=== PATIENT | male | born 1980 | race Caucasian/White ===

== ENCOUNTER 2021-12-07 16:57 | Outpatient (CLI) | payer OTHER, SELFPAY ==
--- OUTSIDE RECORDS SUMMARY | 2021-12-18 12:07 | XMS_ITS | Encounter Summary ---
:1980 Author Organization [facility] Address [address] [place] [address] Care Team Providers Name Role Phone Md NATHANIEL Boateng Primary Care Provider Reason for Visit Reason Comments Headache Nausea Encounter Details Date Type Department Care Team Description 01/03/2013 Hospital Encounter [facility] Precious Pearson , Acute sinusitis, Care MD unspecified [address] [place] (Primary Dx) [place] [address] [phone] Social History Tobacco Use Types Packs/Day Years Used Date Smoking Tobacco: Never Alcohol Use Standard Drinks/Week Comments Not Asked 0 (1 standard drink = 0.6 oz pure alcoho l) Sex Assigned at Date Recorded Not on file documented as of this encounter Last Filed Vital Signs Vital Sign Reading Time Taken Comments Blood Pressure 115/67 01/03/2013 1:04 PM MEDICAL SURGERY NURSE Pulse 80 01/03/2013 1:04 PM MEDICAL SURGERY NURSE Temperature 36.4 ??C (97.5 ??F) 01/03/2013 1:04 PM MEDICAL SURGERY NURSE Respiratory Rate - - Oxygen Saturation - - Inhaled Oxygen Concentration - - Weight - - Height - - Body Mass Index - - documented in this encounter Medications at Time of Discharge Medication Sig Dispensed Refills Start Date End Date amphetamine-dextroampheta LW 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 120 0 0 08/08/2010 mine (ADDERALL) [...] signed by Precious Pearson MD at 01/17/13 1576 Author: Precious Pearson MD Service: (none) Author Type: Physician Filed: 01/17/13 1541 Note Time: 01/03/13 5064 Status: Signed Wood Milling Machine Operator: Precious Pearson MD (Physician) NAME: LORA STEWART MR#: [id number] CSN: [id number] AUTHENTICATING CLINICIAN: Precious Pearson MD CONFIRM #: [id number] LOC: 520 URGENT CARE PROGRESS NOTE DATE [...] next 3-4 days. EKH:MEDQ C: CONFIRM #: [id number] CAL SURGERY NURSE documented in this encounter Miscellaneous Notes Medication [...] Date:01/03/13, Frequency:2 TIMES DAILY *No Administrations Recorded CAL SURGERY NURSE documented in this encounter Plan of Treatment Not on filedocumented as of this encounter Visit Diagnoses Diagnosis Acute sinusitis, unspecified - Primary Triage Assessment Note - Jeane Pepper LPN - 01/03/2013 1:03 PM MEDICAL SURGERY NURSE Headache x 2 weeks off and on. Feels nauseated. Says it does not feel normal. documented in this encounter Care Teams Phlebotomist Lab Assistant Relationship Specialty Start Date End Date Md Boateng MD PCP - General 10/18/12 [place] [address] documented as of this encounter
--- OUTSIDE RECORDS SUMMARY | 2021-12-18 12:07 | XMS_ITS | Encounter Summary ---
:[address] Address [address] [place] [address] Care Team Providers Name Role Phone Robin Duncan MD Primary Care Provider Reason for Visit Reason Comments PRE-OP EXAM Encounter Details Date Type Department Care Team Description 07/08/2011 Pre-Op Visit [facility] Aniya Esparza Pre-op evaluation (Primary Dx); Medicine Herniated disc; [address] [address] Iglesias. Need for diphtheria-tetanus- pertussis (Tdap) [place] [phone] Social History Tobacco Use Types Packs/Day Years [...] presents with ??? Pre-op Exam neck surgery [facility] Primary care physician: Robin Duncan MD [phone] CHIEF COMPLAINT/HISTORY OF PRESENT ILLNESS Augustus Ramirez Jr. is a 31 y.o. male who presents to the the clinic for pre- operative evaluation before prosthetic disc insertion between C5C6 on 07/[address] Garcia at [facility]. Dx before surgeryis herniated disc which occurred [...] ??? 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 LW Addl Instr:Take 1-2tabs bid Indicated [...] thinners including aspirin unless otherwise specified by unemployment examiner. NPO Guidelines ?? No solid foods after [...] sit e unspecified, without myelopathy Need for kajgajqgxc-ywkndgb-xyeaceklx (T dap) vaccine Need for prophylactic vaccination with c ombined zriwpdlnaa-uqesnak-knpjqovfb (DTP) vaccine documented in this encounter Care Teams Corporate Attorney Relationship Specialty Start Date End Date Robin Duncan MD PCP - General 06/03/10 10/17/[address] [place] [address] documented as of this encounter
--- OUTSIDE RECORDS SUMMARY | 2021-12-18 12:07 | XMS_ITS | Encounter Summary ---
:1980 Author Organization [facility] Address [address] [place] [address] Care Team Providers Name Role Phone Robin Duncan MD Primary Care Provider Reason for Visit Reason Comments Spine Cervical Encounter Details Date Type Department Care Team Description 06/19/2011 Office Visit [facility] Colindres PT Cervicalgia (Primary Therapy [address] [place]) [address] [place] [address] [phone] (Wo rk) Social History Tobacco Use Types Packs/Day Years Used Date Smoking Tobacco: Never Alcohol Use Standard Drinks/Week Comments Not Asked 0 (1 standard drink = 0.6 oz pure alcoho l) Sex Assigned at Date Recorded Not on file documented as of this encounter Progress Notes Maria De Jesus Colindres, MIRELLA - 06/19/2011 12:14 PM CDT [facility] Physical Therapy Progress Note Visit Number: [...] in 2 weeks. in 4 weeks. - transition of care specialist with decreased pain by 50-75% in 2 [...] HEP as tolerated. Procedures: Mechanical Traction (CPT 32297). Manual therapy (CPT 47254) 15 minutes Total treatment time: 40 minutes. Therapist: Maria De Jesus Colindres, PT, 7586 documented in this encounter Plan of Treatment Not on filedocumented as of this encounter Visit Diagnoses Diagnosis Cervicalgia - Primary documented in this encounter Care Teams Security Escort Relationship Specialty Start Date End Date Robin Duncan MD PCP - General 06/03/10 10/17/12 [address] [place] [address] documented as of this encounter
--- OUTSIDE RECORDS SUMMARY | 2021-12-18 12:07 | XMS_ITS | Encounter Summary ---
:1980 Author Organization [employer] Address [address] [facility] [place] [address] Care Team Providers Name Role Phone Md NATHANIEL Boateng Primary Care Provider Reason for Visit Reason Comments Cough Encounter Details Date Type Department Care Team Description 05/15/2016 Hospital Encounter [facility] Marcia Tyler S ore throat (Primary Dx); Becca Hernandez PA-C Exposure to strep throat; [address] Acute suppura tive otitis media of left ear [place] [address] [phone] Social History Tobacco Use Types Packs/Day Years Used Date Smoking Tobacco: Former Cigarettes 1 4 Comments: Smoking History Packs/day: Alcohol Use Standard Drinks/Week Comments Yes 0 (1 standard drink = 0.6 oz pure alcoho l) occasionally Sex Assigned at Date Recorded Not on [...] cannot be sent through Care Everywhere.SORE THROAT (GREEK)OTITIS MEDIA (GREEK)documented in this encounter Medications at Time of Discharge Medication Sig Dispensed Refills Start Date End Date amphetamine-dextroamphetam LW 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 120 0 08/08/2010 ine (ADDERALL) 20 MG [...] history, medications, and allergies were reviewed in [facility] and updated as appropriate. Significant factors are [...] Culture Throat (CSS) (05/15/2016 6:35 PM CDT) [facility] gist Method Time Signature Source Throat PN SOFT Site PN SOFT Strep Screen No Group A PN SOFT Streptococcus Isolated Specimen (Source) Anatomical Collection Method Collection Time Re ceived Time Location / / Volume Laterality 05/15/2016 6:35 PM CDT Narrative PN SOFT - 05/17/2016 5:36 AM CDT Performed at [facility], [address] [place] [address], CLIA Number [id number] Marcia Tyler PA-C LAB_1 Performing Organization Address City/State/ZIP Code Phon e Number PN SOFT [address] [place] [address] [phone] Rapid Strep Group A Waived (RSAW) (05/15/2016 6:29 PM CDT) athologist Signature Strep A Negative Negative PN SOFT Antigen Strep A Source THROA: PN SOFT Specimen Anatomical Collection Method Collection Time Receive d Time (Source) Location / / Volume Laterality 05/15/2016 6:29 PM 7 6:53 CDT PM CDT Narrative PN SOFT - 05/15/2016 6:54 PM CDT Performed at [place] [address] [address] [facility], [place] [address] CLIA number [id number] Osbaldo K Bishop [place] LAB_1 Performing Organization Address City/State/ZIP Code Phon e Number PN SOFT [address] [place] [address] documented in this encounter Visit Diagnoses Diagnosis Sore throat - Primary Acute pharyngitis Exposure to strep throat Contact with or exposure to other commun icable diseases Acute suppurative otitis media of left e ar Triage Assessment Note - Yanique Bender, RN - 05/15/2016 6:14 PM CDT Sore throat starting today, productive cough fatigue/malaise x3 days. Kids had strep/influenza A 1-2weeks ago. documented in this encounter Care Teams Inspector Exhaust Emissions Relationship Specialty Start Date End Date Md Boateng MD PCP - General 10/18/12 [place] [address] documented as of this encounter
--- OUTSIDE RECORDS SUMMARY | 2021-12-18 12:07 | XMS_ITS | Encounter Summary ---
:1980 Author Organization [facility] Address [address] [place] [address] Care Team Providers Name Role Phone Robin Duncan MD Primary Care Provider Reason for Visit Reason Comments Follow-up Encounter Details Date Type Department Care Team Description 12/23/2011 Office Visit Specialty Center 3931 Reddy Luna disc Neurosurgery TANYA Bedoya disease, cervical [facility] [place] [address] Social History Tobacco Use Types Packs/Day Years [...] 12/24/11 1145 Note Time: 12/23/11922 Status: Signed Bridge Contractor: Elke Luna PA-C (Physician Director Of Special Services) NAME: LORA STEWART MR#: [id number] CSN: [id number] AUTHENTICATING CLINICIAN: LILIANA Giordano CONFIRM #: [id number] LOC: 262 CLINIC PROGRESS NOTE DATE OF [...] 9 month old and he is a pkwv-lb-oafi dad at this point in time, taking [...] to call us. IIG:MEDQ C: CONFIRM #: [id number] documented in this encounter Plan of Treatment Not on filedocumented as of this encounter Visit Diagnoses Diagnosis Degenerative disc disease, cervical (HRC ) - Primary Degeneration of cervical intervertebral disc documented in this encounter Care Teams Radio Equipment Installer Relationship Specialty Start Date End Date Robin Duncan MD PCP - General 06/03/10 10/17/12 [address] [place] [address] documented as of this encounter
--- OUTSIDE RECORDS SUMMARY | 2021-12-18 12:07 | XMS_ITS | Encounter Summary ---
:1980 Author Organization [facility] Address [address] [place] [address] Care Team Providers Name Role Phone Md NATHANIEL Boateng Primary Care Provider Encounter Details Date Type Department Care Team Description 05/26/2013 Imaging [facility] 3931 S/P ce rvical spinal fusion Radiology 3931 [facility] [place] [address] Social History Tobacco Use Types Packs/Day Years [...] status documented in this encounter Care Teams Mine Engineering Superintendent Relationship Specialty Start Date End Date Md Kilo, PCP - General 10/18/12 [place] [address] documented as of this encounter
--- OUTSIDE RECORDS SUMMARY | 2021-12-18 12:07 | XMS_ITS | Encounter Summary ---
:1980 Author Organization [facility] Address [address], [place] [address] Care Team Providers Name Role Phone Robin Duncan MD Primary Care Provider Encounter Details Date Type Department Care Team Description 06/22/2012 [facility] 3931 Degene rative disc disease, Radiology cervical 3931 [place], [place] [address] Social History Tobacco Use Types Packs/Day Years [...] disc documented in this encounter Care Teams Technical Operations Manager Relationship Specialty Start Date End Date Robin Duncan MD PCP - General 06/03/10 10/17/[address] [place] [address] documented as of this encounter
--- OUTSIDE RECORDS SUMMARY | 2021-12-18 12:07 | XMS_ITS | Encounter Summary ---
:1980 Author Organization [employer] Address [address] [place] [address] Care Team Providers Name Role Phone Robin Duncan MD Primary Care Provider Encounter Details Date Type Department Care Team Description 07/09/2011 - Hospital Encounter [facility] 6[facility] Floor Vern Garcia 07/10/2011 [address] [place] [address] Social History Tobacco Use Types Packs/Day Years [...] Lerner PA-C Service: (none) Author Type: Physician Consumer Credit Counselor Filed: 07/17/11 0831 Note Time: 07/10/11 1100 Status: Signed Dowel Pin Man: Spring Lerner PA-C (Physician Consumer Credit Counselor) NAME: LORA STEWART MR#: [id number] CSN: [id number] AUTHENTICATING CLINICIAN: Spring Lerner PA-C CONFIRM #: [id number] LOC: 1 HOSPITAL DISCHARGE SUMMARY Corrected Copy 07/15/11 [facility] DATE OF ADMISSION: 07/09/2011 DATE OF DISCHARGE: [...] changes in symptoms. 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 120 0 amine (ADDERALL) 20 MG [...] post-op period. D: Pt arrived to room [address] [place] [address], at 1800 (time). Patient is oriented x [...] 07/16/11 0648 Note Time: 07/10/11816 Status: Signed Dowel Pin Man: JOSEY Cunha (Physician) NAME: LORA STEWART MR#: [id number] CSN: [id number] AUTHENTICATING CLINICIAN: JOSEY Cunha CONFIRM #: [id number] LOC: 1 OPERATIVE REPORT Corrected Copy 07/15/11 [facility] DATE OF OPERATION: 07/09/2011 : 1980 SURGEON: JOSEY Cunha PREOPERATIVE DIAGNOSIS: C5-6 disk herniation with radiculopathy. 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 PROCEDURE PERFORMED: 1. Anterior cervical approach C5-6 diskectomy. 2. C5-6 arthroplasty. SURGEON: JOSEY Cunha BUSINESS MACHINES TEACHER: Spring Lerner PA-C COMPLICATIONS: None. BLOOD LOSS: [...] Monocryl subcuticular stitch. PRB:MEDQ C: CONFIRM #: [id number] documented in this encounter Miscellaneous Notes Medication [...] filedocumented in this encounter Care Teams Director Food Safety Relationship Specialty Start Date End Date Robin Duncan MD PCP - General 06/03/10 10/17/12 [address] [place] [address] [place] [address] documented as of this encounter
--- OUTSIDE RECORDS SUMMARY | 2021-12-18 12:07 | XMS_ITS | Encounter Summary ---
:1980 Author Organization [facility] Address [address] [place] [address] Care Team Providers Name Role Phone Robin Duncan MD Primary Care Provider Reason for Visit Reason Comments Follow-up Encounter Details Date Type Department Care Team Description 08/15/2011 Office Visit Specialty Center Spring Lerner, Reddy rative disc 3931 Neurosurgery PA-C disease, cervical [address] (P rimary Dx) [address] [place] [phone] (Wo rk) Social History Tobacco Use [...] for xrays. Call with further questions/concerns. Samia: [phone] documented in this encounter Progress Notes Samia Barton - 08/15/2011 11:56 AM CDT AVS given. Spring Lerner PA-C - 08/15/2011 11:54 AM CDT Progress Notes signed by Spring Lerner PA-C at 08/22/11 1429 Also signed by JOSEY Cunha at 08/26/11 0801 Author: Spring Lerner PA-C Service: (none) Author Type: Physician Coffee Roaster Filed: 08/22/11 1427 Note Time: 08/15/11 1154 Status: Signed Jewelry Casting Model Maker: Spring Lerner PA-C (Physician Coffee Roaster) NAME: LORA STEWART MR#: [id number] CSN: [id number] AUTHENTICATING CLINICIAN: Spring Lerner PA-C CONFIRM #: [id number] LOC: 262 CLINIC PROGRESS NOTE DATE OF [...] in good condition. ALL:MEDQ C: CONFIRM #: [id number] documented in this encounter Plan of Treatment [...] disc documented in this encounter Care Teams Entry Level Programmer Relationship Specialty Start Date End Date Robin Duncan MD PCP - General 06/03/10 10/17/12 [address] [place] [address] [id number] documented as of this encounter
--- OUTSIDE RECORDS SUMMARY | 2021-12-18 12:07 | XMS_ITS | Encounter Summary ---
:1980 Author Organization [facility] Address [address] [place] [address] Care Team Providers Name Role Phone Robin Duncan MD Primary Care Provider Reason for Referral Specialty Diagnoses / Procedures Referred By Contact Refer red To Contact Vern Garcia MD Referral ID Status Reason Start Date Expiration Date Visits Requ ested Visits Authorized Reason for Visit Reason Comments Spine Cervical Encounter Details Date Type Department Care Team Description 06/26/2011 Office Visit [place] [facility] Citlaly Colindres PT Herniated cervical disc; Therapy [address] [address] Radiculopathy, cervical; [address] [place], [place] [address] [phone] (Wo rk) Social History Tobacco Use Types [...] Augustus Ramirez Service Date: 07/23/2011 MR# : [id number] Dictating Clinician: Maria De Jesus Colindres : [...] Provided: Partial Maria De Jesus Colindres PT #[id number] Maria De Jesus Colindres, PT - 06/26/2011 12:09 PM CDT [facility] Physical Therapy Progress Note Visit Number: [...] in 2 weeks. in 4 weeks. - pharmacist critical care with decreased pain by 50-75% in 2 weeks - 4 weeks. in 4 weeks. -Able to turn neck functional range (65 degrees) for safe driving in 2 weeks. to 4 weeks. -Return to work with restrictions (i.e. To Be Determined by MD)or as MD permits in 1-2 weeks. PLAN Will hold chart x2 weeks pending MD recheck next week. Procedures: Mechanical Traction (CPT 98213). Manual therapy (CPT 75787) 15 minutes Total treatment time: 30 minutes. Therapist: Maria De Jesus Colindres, PT, 0660 documented in this encounter Plan of Treatment Scheduled Referrals Name Type Priority Associated Diagnoses Order S [facility] Physical Therapy Referral Routine Herniated cervi jesika disc Ordered: 06/26/2011 Radiculopathy, cervical documented as of this encounter Visit Diagnoses Diagnosis Herniated cervical disc (HRC) Displacement of cervical intervertebral disc without myelopathy Radiculopathy, cervical Brachial neuritis or radiculitis nos Cervicalgia documented in this encounter Care Teams Food Service Technician Relationship Specialty Start Date End Date Robin Duncan MD PCP - General 06/03/10 10/17/12 [address] [place] [address] [place] [address] documented as of this encounter
--- OUTSIDE RECORDS SUMMARY | 2021-12-18 12:07 | XMS_ITS | Encounter Summary ---
:1980 Author Organization [facility] Address [address] [address] Care Team Providers Name Role Phone Md NATHANIEL Boateng Primary Care Provider Reason for Visit Reason Comments Follow-up Encounter Details Date Type Department Care Team Description 05/26/2013 Office Visit Specialty Center 3931 Vern Garcia ervicalgia (Primary Neurosurgery MD Ed Dx) 3931 [place] [address] Social History Tobacco Use Types Packs/Day Years [...] 1218 Note Time: 05/27/13 1155 Status: Signed Improvement Intern: JOSEY Cunha (Physician) NAME: LORA STEWART MR#: [id number] CSN: [id number] AUTHENTICATING CLINICIAN: JOSEY Cunha CONFIRM #: [id number] LOC: 223 CLINIC PROGRESS NOTE DATE OF [...] with stable alignment. PRB:MEDQ C: CONFIRM #: [id number] documented in this encounter Plan of Treatment Not on filedocumented as of this encounter Visit Diagnoses Diagnosis Cervicalgia - Primary documented in this encounter Care Teams Copper Etcher Relationship Specialty Start Date End Date Md Boateng MD PCP - General 10/18/12 [place] [address] documented as of this encounter
--- OUTSIDE RECORDS SUMMARY | 2021-12-18 12:07 | XMS_ITS | Encounter Summary ---
:1980 Author Organization [employer] Address [address] [place] [address] Care Team Providers Name Role Phone Md NATHANIEL Boateng Primary Care Provider Reason for Visit Reason Comments Neck Pain Encounter Details Date Type Department Care Team Description 10/19/2012 Office Visit [facility] Nnamdi Vicente MD Cervicalgia (Primary Medicine [address] [facility] Dx) [address] [place] [address] [phone] (Wo rk) Social History Tobacco Use Types [...] AM CDT Please call Physical Therapy at [phone] to schedule your appointment. documented in this encounter Progress Notes Nnamdi Vicente MD - 10/19/2012 12:15 PM CDT Progress Notes signed by Nnamdi Vicente MD at 10/19/12 1616 Author: Nnamdi Vicente MD Service: (none) Author Type: Physician Filed: 10/19/12 1616 Note Time: 10/19/12 1530 Status: Signed Racing Car Driver: Nnamdi Vicente MD (Physician) NAME: LORA STEWART MR#: [id number] CSN: [id number] AUTHENTICATING CLINICIAN: Nnamdi Vicente MD CONFIRM #: [id number] LOC: 502 CLINIC PROGRESS NOTE DATE OF [...] or worsening symptoms. CJM:MEDTrae C: CONFIRM #: [id number] documented in this encounter Plan of Treatment Not on filedocumented as of this encounter Visit Diagnoses Diagnosis Cervicalgia - Primary documented in this encounter Care Teams Change Booth Attendant Relationship Specialty Start Date End Date Md Boateng MD PCP - General 10/18/12 [place] [address] documented as of this encounter
--- OUTSIDE RECORDS SUMMARY | 2021-12-18 12:07 | XMS_ITS | Encounter Summary ---
:1980 Author Organization [facility] Address [address] [place] [address] Care Team Providers Name Role Phone Robin Duncan MD Primary Care Provider Reason for Visit Reason Comments Follow-up Encounter Details Date Type Department Care Team Description 06/22/2012 Office Visit Specialty Center 3931 Vern Garcia egenerative disc Neurosurgery RMD disease, cervical 3931 [facility] (Primary Dx) [place] [address] Social History Tobacco Use Types Packs/Day Years Used Date Smoking Tobacco: Never Alcohol Use Standard Drinks/Week Comments Not Asked 0 (1 standard drink = 0.6 oz pure alcoho l) Sex Assigned at Date Recorded Not on file documented as of this encounter Last Filed Vital Signs Vital Sign Reading Time Taken Comments Blood Pressure 110/66 06/22/2012 11:31 AM CDT Pulse 72 06/22/2012 11:31 AM CDT Temperature - - Respiratory Rate 20 06/22/2012 11:31 AM CDT Oxygen Saturation - - Inhaled Oxygen Concentration - - Weight - - Height - - Body Mass Index - - documented in this encounter Progress Notes Vern Garcia MD - 06/22/2012 11:48 AM CDT this note has been dictated. Vern Garcia MD - 06/22/2012 11:48 AM CDT Progress Notes signed by JOSEY Cunha at 06/22/122349 Author: JOSEY Cunha Service: (none) Author Type: Physician Filed: 06/22/122349 Note Time: 06/22/122104 Status: Signed English As A Second Language Teacher: JOSEY Cunha (Physician) NAME: LORA STEWART MR#: [id number] CSN: [id number] AUTHENTICATING CLINICIAN: JOSEY Cunha CONFIRM #: [id number] LOC: 223 CLINIC PROGRESS NOTE DATE OF VISIT: 06/22/2012 : 1980 Mr. Stewart is a very pleasant 32-year-old gentleman who I had done L1 level cervical arthroplasty. He has done well from a surgery standpoint, is almost a year out from surgery. Overall he is happy with the outcome of surgery. No signs of myelopathy or radiculopathy at this current point. His incision has healed well with primary intention. His scan looks good. His x- rays show that things look stable and I have a explained to the patient at this current point. I will like to see him onelast time in a year with another set of x-rays. PRB:MEDQ C: CONFIRM #: [id number] documented in this encounter Plan of Treatment Not on filedocumented as of this encounter Visit Diagnoses Diagnosis Degenerative disc disease, cervical (HRC ) - Primary Degeneration of cervical intervertebral disc documented in this encounter Care Teams Parking Enforcement Technician Relationship Specialty Start Date End Date Robin Duncan MD PCP - General 06/03/10 10/17/12 [address] [place] [address] [address] documented as of this encounter
--- OUTSIDE RECORDS SUMMARY | 2021-12-18 12:07 | XMS_ITS | Encounter Summary ---
:1980 Author Organization [facility] Address [address], [place] [address] Care Team Providers Name Role Phone Robin Duncan MD Primary Care Provider Encounter Details Date Type Department Care Team Description 09/25/2011 Imaging [facility]ty Center 393 1 Radiology 3931 [place] [address] Social History Tobacco Use Types Packs/Day Years Used Date Smoking Tobacco: Never Alcohol Use Standard Drinks/Week Comments Not Asked 0 (1 standard drink = 0.6 oz pure alcoho l) Sex Assigned at Date Recorded Not on file documented as of this encounter Plan of Treatment Not on filedocumented as of this encounter Visit Diagnoses Not on filedocumented in this encounter Care Teams Calendar Control Clerk Blood Bank Relationship Specialty Start Date End Date Robin Duncan MD PCP - General 06/03/10 10/17/12 [address] [place] [address] [place] [address] documented as of this encounter
--- OUTSIDE RECORDS SUMMARY | 2021-12-18 12:07 | XMS_ITS | Encounter Summary ---
:1980 Author Organization [facility] Address [address] [place] [address] Care Team Providers Name Role Phone Robin Duncan MD Primary Care Provider Reason for Visit Reason Comments Rash Encounter Details Date Type Department Care Team Description 07/07/2012 Initial Consult Herminia Bustillos is lyle Raines MD (Primary Dx) [address] [place] [address] [place], [place] [phone] [address] Social History Tobacco Use Types Packs/Day Years Used Date Smoking Tobacco: Never Alcohol Use Standard Drinks/Week Comments Not Asked 0 (1 standard drink = 0.6 oz pure alcoho l) Sex Assigned at Date Recorded Not on file documented as of this encounter Patient Instructions Patient InstructionsGladys Acevedo MA - 07/07/2012 11:58 AM CDT DIRECT PHONE NUMBER: GLADYS [phone]. FEEL FREE TO CALL WITH ANY QUESTIONS OR CONCERNS YOU MAY HAVE. documented in this encounter Progress Notes Herminia Navsa MD - 07/07/2012 12:11 PM CDT Progress Notes signed by Herminia Acevedo MD at 07/08/12 0724 Author: Herminia Acevedo MD Service: (none) Author Type: Physician Filed: 07/08/12 0724 Note Time: 07/07/12 1558 Status: Signed Botany Teacher: Herminia Acevedo MD (Physician) NAME: LORA STEWART MR#: [id number] CSN: [id number] AUTHENTICATING CLINICIAN: Herminia Navas MD CONFIRM #: [id number] LOC: 527 CLINIC PROGRESS NOTE DATE OF [...] go from there. VLV:ANGELA C: CONFIRM #: [id number] documented in this encounter Plan of Treatment Not on filedocumented as of this encounter Visit Diagnoses Diagnosis Pityriasis rosea - Primary documented in this encounter Care Teams Program Manufacturing Leader Relationship Specialty Start Date End Date Robin Duncan MD PCP - General 06/03/10 10/17/12 [address] [place] [address] [place] [address] documented as of this encounter
--- OUTSIDE RECORDS SUMMARY | 2021-12-18 12:07 | XMS_ITS | Encounter Summary ---
:1980 Author Organization [email or web address] Address [address] [place] [address] Care Team Providers Name Role Phone Md NATHANIEL Boateng Primary Care Provider Reason for Visit Reason Comments Ear Pain Encounter Details Date Type Department Care Team Description 03/30/2013 Hospital Encounter [facility] SARA DuranTI (acute upper respiratory infection) (Primary Dx); Care Hubert Mcclure MD Otitis media, right [address] [phone] [address] Social History Tobacco Use Types Packs/Day Years Used Date Smoking Tobacco: Never Alcohol Use Standard Drinks/Week Comments Not Asked 0 (1 standard drink = 0.6 oz pure alcoho l) Sex Assigned at Date Recorded Not on file documented as of this encounter Last Filed Vital Signs Vital Sign Reading Time Taken Comments Blood Pressure 114/68 03/30/2013 6:05 PM PREVENTION RN Pulse 77 03/30/2013 6:05 PM PREVENTION RN Temperature 36.9 ??C (98.4 ??F) 03/30/2013 6:05 PM PREVENTION RN Respiratory Rate 14 03/30/2013 6:05 PM PREVENTION RN Oxygen Saturation 97% 03/30/2013 6:05 PM PREVENTION RN Inhaled Oxygen Concentration - - Weight - [...] 04/02/13 0756 Note Time: 03/30/132129 Status: Signed Assistant Art Director: Hubert Duran MD (Physician) NAME: LORA STEWART MR#: [id number] CSN: [id number] AUTHENTICATING CLINICIAN: Hubert Duran MD CONFIRM #: [id number] LOC: 520 URGENT CARE PROGRESS NOTE DATE [...] or concerns, reassess. JBF:MEDQ C: CONFIRM #: [id number] ENTION RN documented in this encounter Miscellaneous Notes Medication History - Shorty Abbott MD - 03/30/2013 6:15 PM CST INPATIENT MEDS Encounter Date: 03/30/13 amoxicillin (AMOXIL) 500 mg capsule Start Date:03/30/13, End Date:04/06/13, Frequency:3 TIMES DAILY *No Administrations Recorded D-METHORPHAN/PE/ACETAMINOPHEN (VICKS DAYQUIL ORAL) Start Date:-, End Date:-, Frequency:- *No Administrations Recorded ENTION RN documented in this encounter Plan of Treatment [...] days. documented in this encounter Care Teams User Experience Researcher Relationship Specialty Start Date End Date Md Boateng MD PCP - General 10/18/12 [place] [address] documented as of this encounter
--- OUTSIDE RECORDS SUMMARY | 2021-12-18 12:07 | XMS_ITS | Clinical Summary ---
:1980 Author Organization [facility] Address [address] [place] [address] Care Team Providers Name Role Phone Md [...] for each transition of care or referral. [facility] Allergies No known active allergies Medications Medication [...] not taking. 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 120 0 08/08/2010 Active (ADDERALL) 20 MG [...] in thoracic spine 07/17/2005 Overview: LW Onset: [id number] ; Pain Back Thoracic Cervicalgia 07/17/2005 Overview: LW Onset: [id number] ; Pain Neck Backache 02/12/2004 Overview: Epic Depressive disorder 02/12/2004 Overview: Depressive disorder, not elsewhere class ified ([facility]) Immunizations Name Administration Dates Next Due [...] Effective Phone Address Type Plan / Dates [facility] 2003-Pre [phone] Workers Comp [facility] sent [phone] [place] [address] [facility] [id number] 2017-Pre [phone] Commercial sent [phone] [place] [address] Augustus Ramirez Personal/Famil Self 1980 [address] (Home) [place] [id number] Augustus Ramirez Personal/Famil Self [address] y (Home) [place] [address] Augustus Ramirez Workers Comp Self 1980 [address] (Home) [place] [address] Advance Directives Latest Code Status on File Code Status Date Activated Date Inactivated Comments 05/20/2003 10:20 AM 05/20/2003 11:20 AM Care Teams Cargo Station Worker Relationship Specialty Start Date End Date Md Kilo, PCP - General 10/18/12 [place] [address]
--- OUTSIDE RECORDS SUMMARY | 2021-12-18 12:07 | XMS_ITS | Encounter Summary ---
:1980 Author Organization [facility] Address [address] [facility] [place] [address] Care Team Providers Name Role Phone Robin Duncan MD Primary Care Provider Reason for Visit Reason Comments Cough Encounter Details Date Type Department Care Team Description 10/16/2011 Hospital Encounter [facility] Shannan Velez, [place] [facility]; Care PA-C [facility]roat sore[facility] [address] [facility] [address] [place] [address] [address] [phone] [place] [address] Social History Tobacco Use Types [...] Refills Start Date End Date amphetamine-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 LW 120 0 08/08/2010 tamine (ADDERALL) 20 [...] Beta Strep Followup (10/16/2011 11:36 AM CDT) [facility] Method Time Signature Strep Screen No [...] Component Value Ref Test Analysis Performed At [facility] Range Method Time Signature Rapid Strep [...] - 10/16/2011 11:45 AM CDT Performed at [facility], [address] [place] [address] Shannan Velez PA-C LAB_1 Performing Organization Address City/State/ZIP Code Phon e Number HP CONVERSION documented in this encounter Visit Diagnoses Diagnosis Cough Throat soreness Acute pharyngitis Triage Assessment Note - Lorri Christianson RN - 10/16/2011 8:48 AM CDT Started yesterday and today sore throat and fatigue. documented in this encounter Care Teams Banquet Director Relationship Specialty Start Date End Date Robin Duncan MD PCP - General 06/03/10 10/17/[address] [place] [address] documented as of this encounter
--- OUTSIDE RECORDS SUMMARY | 2021-12-18 12:07 | XMS_ITS | Encounter Summary ---
:[address] [facility] Address [address] [place] [address] Care Team Providers Name Role Phone Robin Duncan MD Primary Care Provider Encounter Details Date Type Department Care Team Description 06/22/2012 Notes/Orders Specialty Center 3931 Dennise Velez Deg enerative disc Neurosurgery disease, cervical [address] [place] [address] [address] (Primary Dx) [place] [address] Social History Tobacco Use Types Packs/Day Years [...] disc documented in this encounter Care Teams Waterproofing Mixer Relationship Specialty Start Date End Date Robin Duncan MD PCP - General 06/03/10 10/17/12 [address] [place] [place] [address] documented as of this encounter
--- OUTSIDE RECORDS SUMMARY | 2021-12-18 12:07 | XMS_ITS | Encounter Summary ---
:1980 Author Organization [facility] Address [address] [place] [address] Care Team Providers Name Role Phone Robin Duncan MD Primary Care Provider Reason for Visit Reason Comments Wound Check Encounter Details Date Type Department Care Team Description 07/23/2011 Office Visit Specialty Center 3931 Nurse, P3931 Nsu Ce rvicalgia (Primary Neurosurgery Dx) 3931 [place] [address] Social History Tobacco Use Types Packs/Day Years [...] Primary documented in this encounter Care Teams Dinkey Driver Relationship Specialty Start Date End Date Robin Duncan MD PCP - General 06/03/10 10/17/12 [address] [address] [place] [address] documented as of this encounter
--- OUTSIDE RECORDS SUMMARY | 2021-12-18 12:07 | XMS_ITS | Encounter Summary ---
:1980 Author Organization [facility] Address [address] [place] [address] Care Team Providers Name Role Phone Robin Duncan MD Primary Care Provider Reason for Visit Reason Comments Rash Encounter Details Date Type Department Care Team Description 07/06/2012 Office Visit [facility] Ibis Plata Rash (Primary Dx) Medicine [address] [facility] [address] [place] [address] [place] [address] [phone] (Wo rk) Social History Tobacco Use Types [...] signed by Ibis Plata MD at 07/11/12 2370 Author: Ibis Plata MD Service: (none) Author Type: Physician Filed: 07/11/12 1855 Note Time: 07/07/12 0128 Status: Signed Brush Filler Hand: Ibis Plata MD (Physician) NAME: LORA STEWART MR#: [id number] CSN: [id number] AUTHENTICATING CLINICIAN: Ibis Plata MD CONFIRM #: [id number] LOC: 502 CLINIC PROGRESS NOTE DATE OF [...] and recommend to be seen by the director of special events for further evaluation. SS:MEDQ C: CONFIRM #: [id number] documented in this encounter Plan of Treatment Not on filedocumented as of this encounter Procedures Procedure Name Priority Date/Time Associated Diagnosis Comme nts MIA PREP Routine 07/06/2012 10:52 AM Rash Results for this CDT procedure are i n the results section . documented in this encounter Results MIA Prep (07/06/2012 10:52 AM CDT) [facility] Method Time Signature MIA Yeast None Seen HP CONVERSION MIA Fungus None Seen HP CONVERSION MIA Pseudo None Seen HP CONVERSION Hypae MIA Source Skin HP CONVERSION Scraping ( Specimen Anatomical Collection Method Collection Time Receive d Time (Source) Location / / Volume Laterality 07/06/2012 10:52 07/06/2012 AM CDT 10:55 AM CDT Narrative HP CONVERSION - 07/06/2012 11:18 AM CDT Performed at [facility], [address] [place] [address] Ibis Plata MD LAB_1 Performing Organization Address City/State/ZIP Code Phon e Number HP CONVERSION documented in this encounter Visit Diagnoses Diagnosis Rash - Primary Rash and other nonspecific skin eruption documented in this encounter Care Teams Room Cleaner Relationship Specialty Start Date End Date Robin Duncan MD PCP - General 06/03/10 10/17/[id number] [place] [address] [place] [address] documented as of this encounter
--- OUTSIDE RECORDS SUMMARY | 2021-12-18 12:07 | XMS_ITS | Encounter Summary ---
:1980 Author Organization [facility] Address [address] [place] [address] Care Team Providers Name Role Phone Robin Duncan MD Primary Care Provider Encounter Details Date Type Department Care Team Description 07/09/2011 Notes/Orders Religious Radiology Vern Garcia MD [address] [place] [facility] [place] [address] Social History Tobacco Use Types [...] 10:28 AM CDT NAME: LORA STEWART MR#: [id number] ?? CSN: [id number] ?? AUTHENTICATING CLINICIAN: JOSEY Henriquez ?? CONFIRM #: [id number] ?? LOC: 1 ?? OPERATIVE REPORT ?? Corrected Copy 07/15/11 dmf/DOS ?? DATE OF OPERATION: 07/09/2011 ?? : 1980 ?? SURGEON: JOSEY Cunha ?? PREOPERATIVE DIAGNOSIS: ?? 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 ?? POSTOPERATIVE DIAGNOSIS: ?? 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 ?? PROCEDURE PERFORMED: ?? 1. Anterior cervical approach C5-6 diske ctomy. ?? 2. C5-6 arthroplasty. ?? SURGEON: ?? JOSEY Cunha ?? COMIC BOOK WRITER: ?? Spring Lerner PA-C ?? COMPLICATIONS: ?? [...] stitch. ?? PRB:MEDQ C: ?? CONFI #: [id number] Procedure Note Vern Garcia - 08/17/2015Formatti ng of this note might be different from the original. 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 PROCEDURE PERFORMED: 1. Anterior cervical approach C5-6 diske ctomy. 2. C5-6 arthroplasty. SURGEON: JOSEY Cunha COMIC BOOK WRITER: Spring Lerner PA-C COMPLICATIONS: None. BLOOD LOSS: [...] Monocryl subcuticular stitch. PRB:MEDQ C: CONFI #: [id number] Vern Garcia MD RAD [place] documented in this encounter Visit Diagnoses Not on filedocumented in this encounter Care Teams Twister In Relationship Specialty Start Date End Date Robin Duncan MD PCP - General 06/03/10 10/17/12 [address] [place] [place] [address] documented as of this encounter
--- OUTSIDE RECORDS SUMMARY | 2021-12-18 12:07 | XMS_ITS | Encounter Summary ---
:1980 Author Organization [employer] Address [address] [address] Care Team Providers Name Role Phone Robin Duncan MD Primary Care Provider Reason for Visit Reason Comments Follow-up Encounter Details Date Type Department Care Team Description 09/25/2011 Office Visit Specialty [facility] Mary Ann Luna; Neurosurgery TANYA Bedoya Degenerative disc disease, c ervical [address]31 [place] [address] Social History Tobacco Use Types Packs/Day Years [...] 09/25/11 1441 Note Time: 09/25/11950 Status: Signed Solder Sprayer: Elke Ritchie PA-C (Physician Nnp) NAME: LORA STEWART MR#: [id number] CSN: [id number] AUTHENTICATING CLINICIAN: LILIANA Harkins CONFIRM #: [id number] LOC: 262 CLINIC PROGRESS NOTE DATE OF [...] for Dr. Garcia. IIT:ANGELA C: CONFIRM #: [id number] documented in this encounter Plan of Treatment Not on filedocumented as of this encounter Visit Diagnoses Diagnosis Cervicalgia Degenerative disc disease, cervical ([facility] ) Degeneration of cervical intervertebral disc documented in this encounter Care Teams Ortho Tech Relationship Specialty Start Date End Date Robin Duncan MD PCP - General 06/03/10 10/17/12 [address] [place] [address] [place] [address] documented as of this encounter
--- OUTSIDE RECORDS SUMMARY | 2021-12-18 12:07 | XMS_ITS | Encounter Summary ---
:1980 Author Organization [employer] Address [address], [place] [address] Care Team Providers Name Role Phone Md NATHANIEL Boateng Primary Care Provider Reason for Visit Reason Comments Other Encounter Details Date Type Department Care Team Description 01/29/2015 Telephone Specialty Center 3931 [facility] Emeli Miranda, RN [address] [place], [place] [phone] Social History Tobacco Use Types Packs/Day Years [...] is asking for evaluation. Recommended PCP appointment. ALT TILE FLOOR LAYER documented in this encounter Plan of Treatment Not on filedocumented as of this encounter Visit Diagnoses Not on filedocumented in this encounter Care Teams Mill Work Relationship Specialty Start Date End Date Md Boateng MD PCP - General 10/18/12 [place], [place] [id number] documented as of this encounter
--- OUTSIDE RECORDS SUMMARY | 2021-12-18 12:07 | XMS_ITS | Encounter Summary ---
:1980 Author Organization [facility] Address [address] [place] [address] Care Team Providers Name Role Phone Robin Duncan MD Primary Care Provider Reason for Visit Reason Comments Provider Orders Encounter Details Date Type Department Care Team Description 12/22/2011 Notes/Orders Specialty Center 3931 Nissa Peterson istory of fusion of Neurosurgery P, FLOOR SERVICE WORKER SPRING cervical spine [address] [facility] (Primary Dx) [place] [address] Social History Tobacco Use Types Packs/Day Years [...] status documented in this encounter Care Teams Latex Caster Relationship Specialty Start Date End Date Robin Dunacn MD PCP - General 06/03/10 10/17/12 [address] [place] [address] [place] [id number] documented as of this encounter
--- OUTSIDE RECORDS SUMMARY | 2021-12-18 12:07 | XMS_ITS | Encounter Summary ---
:1980 Author Organization [email or web address] Address [address], [place] [address] Care Team Providers Name Role Phone Md NATHANIEL Boateng Primary Care Provider Encounter Details Date Type Department Care Team Description 05/25/2013 Notes/Orders Specialty Center 3931 Joann Rebolledo RN S/ P cervical spinal Neurosurgery fusion (Primary Dx) 3931 [place], [place] [address] Social History Tobacco Use Types Packs/Day Years [...] status documented in this encounter Care Teams Compressed Gas Equipment Mechanic Relationship Specialty Start Date End Date Md Boateng MD PCP - General 10/18/12 [place] [address] documented as of this encounter
--- OUTSIDE RECORDS SUMMARY | 2021-12-18 12:07 | XMS_ITS | Encounter Summary ---
:1980 Author Organization [facility] Address [address] [facility] [place] [address] Care Team Providers Name Role Phone Md NATHANIEL Boateng Primary Care Provider Reason for Visit Reason Comments NASAL CONGESTION--ED Pharyngitis Encounter Details Date Type Department Care Team Description 11/21/2018 Hospital Encounter [facility] Princess Parra, So re throat; Care TANYA Allergic rhinitis, unspecified seasonali ty, unspecified trigger; [address] [address] Acute sinusitis, recurrence not specifie d, [place] [address] [phone] Social History Tobacco Use Types Packs/Day Years [...] weeds. Allergies can be mild or severe. Rxqf-exh-qvgoenk allergy medicine may help with some symptoms. [...] or twice a week. Use a vacuum vacuum cleaner assembler with aHEPA filter or a double-thickness filter. [...] can you learn more? 1. Go to https://ViralGains/[employer] Energy IncraFindline or OneBuckResume/WyzeTalkrary. 2. Enter J912 in the search box. Current as of: August 26, 2017 Content Version: 12.0 ?? 1521-0268 [employer]. Care instructions adapted under license by your healthcare professional. If you have questions about a medical condition or this instruction, always ask your healthcare professional. [employer] disclaims any warranty or liability for your [...] for yourself at home? ?? Take an xncn-wsg-miycpaf pain medicine, such as acetaminophen (Tylenol), ibuprofen (Advil, Motrin), or naproxen (Aleve). Read and follow all instructions on the label. ?? If the doctor prescribed antibiotics, take them as directed. Do not stop taking them just becauseyou feel better. You need to take the full course of antibiotics. ?? Be careful when taking kaev-wqp-gmxbndx cold or flu medicines and Tylenol at [...] can you learn more? 1. Go to https://ViralGains/healthlibrary or OneBuckResume/WyzeTalkraFindline. 2. Enter I933 in the search box. Current as of: December 20, 2017 Content Version: 12.0 ?? 8266-9640 Tapdaq. Care instructions adapted under license by your healthcare professional. If you have questions about a medical condition or this instruction, always ask your healthcare professional. [employer] disclaims any warranty or liability for your use of this information. documented in this encounter Medications at Time of Discharge Medication Sig Dispensed Refills Start Date End Date ALBUterol sulfate HFA 108 Inhale 1-2 Puffs 1 Inhaler 0 11/01 (90 Base) MCG/ACT inhaler every 4 hours as needed for Shortness of Breath. amphetamine-dextroamphetam LW Comment:occupational therapist aide. 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 Adverse Drug Reactions: No Known Allergies. Medications: [...] ??? amphetamine-dextroamphetamine (ADDERALL) 20 MG tablet LW Comment:occupational therapist aide. LW Addl Instr:Take 1-2tabs bid Indicated for: [...] 20 MG tablet Generic drug: amphetamine-dextroamphetamine LW Comment:occupational therapist aide. LW Addl Instr:Take 1-2 tabs bid Indicated [...] Your Medications These medications were sent to [id number] - [place], [place] - [address] [facility] [address] [address] [facility] [id number] ?? ALBUterol sulfate HFA 108 (90 Base) [...] Signature Group A Rapid Negative Negative 11/21/2018 [facility] Screen 12:03 PM CDT LABORATORY Specimen Anatomical Collection Method Collection Time Receive d Time (Source) Location / / Volume Laterality Swab (Source THROAT SWAB / Non-blood 11/21/2018 11:34 11/21/2018 Required) Unknown Collection / AM CDT 11:46 AM CDT Unknown Narrative [facility] - 11/21/2018 12:03 PM CDT Order a Group A Strep Respiratory cultur e if the patient is OVER 18 and has had CLOSE contact with strep, hx of rheumatic feve r or post-strep glomerulonephritis, or is immunocompromised. [facility]_1 Performing Organization Address City/State/ZIP Code Phon e Number [facility] [address] [place] [address] documented in this encounter Visit Diagnoses Diagnosis Sore throat Acute pharyngitis Allergic rhinitis, unspecified seasonali ty, unspecified trigger Acute sinusitis, recurrence not specifie d, unspecified location Triage Assessment Note - Nicole Nicholas RN - 11/21/2018 11:32 AM CDT Pt here for nasal congestion and sore throat X 1.5 days. documented in this encounter Care Teams Geomorphology Teacher Relationship Specialty Start Date End Date Md Boateng MD PCP - General 10/18/12 [place] [address] documented as of this encounter
--- OUTSIDE RECORDS SUMMARY | 2021-12-18 12:07 | XMS_ITS | Encounter Summary ---
:1980 Author Organization [facility] Address [address] [place] [address] Care Team Providers Name Role Phone Md NATHANIEL Boateng Primary Care Provider Reason for Visit Reason Comments Cough CONGESTION, NASAL Encounter Details Date Type Department Care Team Description 10/17/2013 Hospital Encounter [facility] re Princess Parra, PAKattC Cough; [address] [place] [address] [place] [address] [phone] Social History Tobacco Use Types Packs/Day Years [...] Refills Start Date End Date amphetamine-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 120 0 08/08/2010 ine (ADDERALL) 20 [...] Parra PA-C Service: (none) Author Type: Physician Quotation Checker Filed: 10/24/13 1321 Note Time: 10/18/139 Status: Signed Director Of Medical Review: Princess Parra PA-C (Physician Quotation Checker) NAME: LORA STEWART MR#: [id number] CSN: [id number] AUTHENTICATING CLINICIAN: Princess Parra PA-C CONFIRM #: [id number] LOC: 520 URGENT CARE PROGRESS NOTE DATE [...] travel. PAST MEDICAL HISTORY: Reviewed online in [employer]. MEDICINES: Reviewed online in [employer]. EXAM: Patient is a little bit ill [...] otherwise recheck p.r.n. TATIANNAT:ANGELA C: CONFIRM #: [id number] documented in this encounter Miscellaneous Notes Miscellaneous [...] weeks for repeat xray to confirm resolution-Erin MAKER HELPER Medication History - Shorty Abbott MD - [...] from the original note were not included. [facility] [address] [place] [address] Dept: [phone] [email or web address] Lora Stewart Jr. 10/17/2013 7:29 PM Hospital Encounter Description: Male : 1980 Department: [place] [facility] Thank you for choosing [facility] for your health care visit with Princess Parra PA-C. We are happy to care for you and provide this summary of your visit. Your primary regular senior care provider is currently listed as Md Kilo MD. HERE IS WHAT YOU NEED TO KNOW To learn how you can take steps to stay as healthy as you can be visit [email or web address] HERE IS WHAT YOU NEED TO DO Call your clinic if you develop new or worsening symptoms or if you have questions about your visit or medications. Your to do list Future Orders Complete By Ordering Dept. 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 LW Addl Instr:Take 1-2 tabs bid [...] Ethnicity Preferred Language 1980 Male White Non- Kazakh This document contains confidential information about your [...] 1800 documented in this encounter Care Teams Test Fixture Assembler Relationship Specialty Start Date End Date Md Boateng MD PCP - General 10/18/12 [place] [address] documented as of this encounter
--- OUTSIDE RECORDS SUMMARY | 2021-12-18 12:08 | XMS_ITS | Encounter Summary ---
:1980 Author Organization [facility] Address [address] [place] [address] Care Team Providers Name Role Phone Robin Duncan MD Primary Care Provider Encounter Details Date Type Department Care Team Description 11/13/2009 PN Conversion Only UTILITY SYSTEM OPERATOR 38[address] CONV [address] [address] Social History Tobacco Use Types Packs/Day Years Used Date Smoking Tobacco: Never Alcohol Use Standard Drinks/Week Comments Not Asked 0 (1 standard drink = 0.6 oz pure alcoho l) Sex Assigned at Date Recorded Not on file documented as of this encounter Plan of Treatment Not on filedocumented as of this encounter Visit Diagnoses Not on filedocumented in this encounter Care Teams Ore Mixer Relationship Specialty Start Date End Date Robin Duncan MD PCP - General 06/03/10 10/17/12 [address] [address] [place] [address] documented as of this encounter
--- OUTSIDE RECORDS SUMMARY | 2021-12-18 12:08 | XMS_ITS | Encounter Summary ---
:1980 Author Organization [employer] Address [address] [place] [address] Care Team Providers Name Role Phone Robin Duncan MD Primary Care Provider Reason for Referral Specialty Diagnoses / Procedures Referred By Contact Refer red To Contact Belkis Mendez MD Referral ID Status Reason Start Date Expiration Date Visits Requ ested Visits Authorized Reason for Visit Reason Comments Spine Cervical Encounter Details Date Type Department Care Team Description 06/09/2011 Initial Consult [place] [facility] Maria De Jesus Colindres N sun pain, acute Therapy PT (Primary Dx) [address] [place] [address] [place], [place] [phone] [address] Social History Tobacco Use Types Packs/Day [...] Is suppose to be going [place] to [place] for a job this week. OBJECTIVE: General: [...] -Manual Therapy, 1 or more regions (CPT 94155) - 25 minutes: Use of gentle distraction x30 second holds x6, Grade l,ll PA's and rotation, suboccipital release 30 seconds holds.. tried in varying flexion positions tolerated best in neutral. Tried gentle contract/relax which was not tolerated at all.tolerated all all. -Therapeutic exercise. 5 minutes. Discussed general posture, use of easy ROM, support and cold for home. -Ice (CPT 11243): Cold packs x10 minutes after manual treatment. [...] 2 weeks. in 4 weeks. - care administrative tech with decreased pain by 50-75% in 2 [...] Note completed on: 06/09/2011 1:50 PM The wash helper is completed by the therapist and the [...] Cervicalgia documented in this encounter Care Teams Warehouse Insulation Worker Relationship Specialty Start Date End Date Robin Duncan MD PCP - General 06/03/10 10/17/12 [address] [place] [address] [place] [address] documented as of this encounter
--- OUTSIDE RECORDS SUMMARY | 2021-12-18 12:08 | XMS_ITS | Encounter Summary ---
:1980 Author Organization [facility] Address [address] [place] [address] Care Team Providers Name Role Phone Robin Duncan MD Primary Care Provider Reason for Visit Reason Comments Other Encounter Details Date Type Department Care Team Description 03/05/2009 Telephone [facility], Message Other [address] [place] [address] Social History Tobacco Use Types Packs/Day Years Used Date Smoking Tobacco: Never Alcohol Use Standard Drinks/Week Comments Not Asked 0 (1 standard drink = 0.6 oz pure alcoho l) Sex Assigned at Date Recorded Not on file documented as of this encounter [facility], Message - 03/05/2009 12:13 PM CST Phone Note filed by [employer] at 06/21/102042 Author: [employer] Service: (none) Author Type: (none) Filed: 06/21/102042 Note Time: 03/05/091212 Status: Signed Roller Operator: [employer] (Resource) Non -Symptom Message from Front Line Caller Name/Relationship:Augustus/tony Primary Environmental Remediation Engineer:Dr. Robin Duncan Message:Patient states he does not have the paperwork with instructions on how to prep for flexsig appt. tomorrow. Patient requests a return call to discuss. Veterinary Laboratory Technician:Augustus/tony Best call back number:[phone] cell Is it OK to leave a confidential message on this voicemail?yes *[id number] Created on 05Mar2009 12:13pm by TARIK RAMIREZ On 05Mar2009 12:32pm ALYSSA CAMPOS wrote: He will call for instructions:[phone] SILO TENDER documented in this encounter Plan of Treatment Not on filedocumented as of this encounter Visit Diagnoses Not on filedocumented in this encounter Care Teams Hand Developer Relationship Specialty Start Date End Date Robin Duncan MD PCP - General 06/03/10 10/17/12 [address] [place] [place] [address] documented as of this encounter
--- OUTSIDE RECORDS SUMMARY | 2021-12-18 12:08 | XMS_ITS | Encounter Summary ---
:1980 Author Organization [facility] Address [address] [place] [address] Care Team Providers Name Role Phone Robin Duncan MD Primary Care Provider Reason for Visit Reason Comments Cough FACIAL PAIN Encounter Details Date Type Department Care Team Description 03/09/2011 Hospital Encounter [facility], Tabitha Chest pain, unspecified; Becca Roach MD URI (upper respiratory infec tion); [address] [address] Acute sinusit is, unspecified; [place] [address] Social History Tobacco Use Types Packs/Day Years Used Date Smoking Tobacco: Never Alcohol Use Standard Drinks/Week Comments Not Asked 0 (1 standard drink = 0.6 oz pure alcoho l) Sex Assigned at Date Recorded Not on file documented as of this encounter Last Filed Vital Signs Vital Sign Reading Time Taken Comments Blood Pressure 95/60 03/09/2011 2:16 PM MANUFACTURING TECHNOLOGIST Pulse 88 03/09/2011 2:16 PM MANUFACTURING TECHNOLOGIST Temperature 36.6 ??C (97.9 ??F) 03/09/2011 2:16 PM MANUFACTURING TECHNOLOGIST Respiratory Rate 14 03/09/2011 2:16 PM MANUFACTURING TECHNOLOGIST Oxygen Saturation 97% 03/09/2011 2:16 PM MANUFACTURING TECHNOLOGIST Inhaled Oxygen Concentration - - Weight - - Height - - Body Mass Index - - documented in this encounter Medications at Time of Discharge Medication Sig Dispensed Refills Start Date End Date amphetamine-dextroamphet 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 120 0 amine (ADDERALL) 20 MG [...] 04/01/112156 Note Time: 03/09/11 1642 Status: Signed Supervisor In Circuit Testing: Tabitha Chowdhury MD (Physician) NAME: LORA STEWART MR#: [id number] CSN: [id number] AUTHENTICATING CLINICIAN: Tabitha Chowdhury MD CONFIRM #: [id number] LOC: 520 CLINIC PROGRESS NOTE DATE OF [...] in any way. FK:MEDQ C: CONFIRM #: [id number] FACTURING TECHNOLOGIST documented in this encounter Miscellaneous Notes Medication History - Shorty Abbott MD - 03/09/2011 3:20 PM CST INPATIENT MEDS Encounter Date: 03/09/11 amoxicillin-clavulanate (AUGMENTIN) 875-125 mg per tablet Start Date:03/09/11, End Date:03/19/11, Frequency:2 TIMES DAILY *No Administrations Recorded fluticasone (FLONASE) 50 mcg/Actuation nasal spray Start Date:03/09/11, End Date:10/16/11, Frequency:DAILY *No Administrations Recorded FACTURING TECHNOLOGIST documented in this encounter Plan of Treatment Not on filedocumented as of this encounter Procedures Procedure Name Priority Date/Time Associated Diagnosis Comme nts XR CHEST 2 VIEWS Routine 03/09/2011 3:03 PM Chest pain, Resul ts for this MANUFACTURING TECHNOLOGIST unspecified procedure are i n the results section. documented in this encounter Results XR Chest 2 Views (03/09/2011 3:03 PM MANUFACTURING TECHNOLOGIST) Anatomical Region Laterality Modality Chest, Lung Other Specimen (Source) Anatomical Location Collection Method / Collectio n Time Received Time / Laterality Volume Narrative 03/10/2011 8:21 AM MANUFACTURING TECHNOLOGIST Two-view chest FINDINGS: Negative. Procedure Note Johnathan [...] media documented in this encounter Care Teams Welding Machine Tender Relationship Specialty Start Date End Date Robin Duncan MD PCP - General 06/03/10 10/17/12 [address] [place] [address] documented as of this encounter
--- OUTSIDE RECORDS SUMMARY | 2021-12-18 12:08 | XMS_ITS | Encounter Summary ---
:1980 Author Organization [facility] Address [address] [place] [address] Care Team Providers Name Role Phone Robin Duncan MD Primary Care Provider Encounter Details Date Type Department Care Team Description 08/07/2010 PN Conversion Only [place] CONVER[place] N [place], [address] [facility] [place] [address] [address] [facility] [address] [place] [address] (Wo rk) Social History Tobacco [...] Date/Time Associated Comments Diagnosis HIV ANTIBODY Routine 08/07/2010 2:29 PM Results f or this CDT procedure are i n the results section. RPR BLOOD Routine 08/07/2010 2:29 PM Results f or this CDT procedure are i n the results section. HEPATITIS B SURFACE Routine 08/07/2010 2:29 PM Re sults for this ANTIBODY CDT procedure are i n the results section. HEP B SURFACE Routine 08/07/2010 2:29 PM Results for this ANTIGEN, NO REFLEX CDT procedure are in the results section. HEPATITIS C ANTIBODY, Routine 08/07/2010 2:29 PM Results for this WITH REFLEX CDT procedure are i n the results section. SEXUALLY TRANSMITTED Routine 08/07/2010 2:28 PM R esults for this DISEASE PROBE CDT procedure are in the results section. documented in this encounter Results RPR BLOOD (08/07/2010 2:29 PM CDT) P athologist Signature RPR Non Reac Nonreactive HP CONVERSION Specimen (Source) Anatomical Collection Method Collection Time Re ceived Time Location / / Volume Laterality 08/07/2010 2:29 PM CDT Conor Plata MD LAB_1 Performing Organization Address City/State/ZIP Code Phon e Number HP CONVERSION HIV ANTIBODY (08/07/2010 2:29 PM CDT) athologist Signature HIV 1/HIV 2 Non-React Non-Reacti HP CONVERSION ve Specimen (Source) Anatomical Collection Method Collection Time Re ceived Time Location / / Volume Laterality 08/07/2010 2:29 PM CDT Conor Plata MD LAB_1 Performing Organization Address City/State/ZIP Code Phon e Number HP CONVERSION Hepatitis C Antibody, with Reflex (08/07/2010 2:29 PM CDT) [facility] gist Method Time Signature Hepatitis C Non-React Non-Reacti HP CONVERSION Antibody ve Specimen (Source) Anatomical Collection Method Collection Time Re ceived Time Location / / Volume Laterality 08/07/2010 2:29 PM CDT Conor Plata MD LAB_1 Performing Organization Address City/State/ZIP Code Phon e Number HP CONVERSION Hep B Surface Antigen, No Reflex (08/07/2010 2:29 PM CDT) Analysis Performed At [facility] logist Time Signature Hep B Surf Ag Negative Negative HP CONVERSION Specimen (Source) Anatomical Collection Method Collection Time Re ceived Time Location / / Volume Laterality 08/07/2010 2:29 PM CDT Conor Plata MD LAB_1 Performing Organization Address City/State/ZIP Code Phon e Number HP CONVERSION Hepatitis B Surface Antibody (08/07/2010 2:29 PM CDT) Patholo gist Method Time Signature Hep B Surf Ab Non-React Non-Reacti HP CONVERSION ve Specimen (Source) Anatomical Collection Method Collection Time Re ceived Time Location / / Volume Laterality 08/07/2010 2:29 PM CDT Conor Plata MD LAB_1 Performing Organization Address City/State/ZIP Code Phon e Number HP CONVERSION Sexually Transmitted Disease Probe (08/07/2010 2:28 PM CDT) [facility] Method Time Signature Sexually SEE TEXT HP CONVERSION Transmitted Disease Probe Comment: STDPR Sexually Transmitted Disease DNA Probe ? ORDERED BY: CONOR PLATA SOURCE: Urine for molecular testing ?COLLECTED: ??08/07/10 14:28 ? PLATED: ? 08/07/10 14:28 Chlamydia trachomatis DNA Probe ?FINAL ? 08/09/10 12:55 Chlamydia trachomatis NEGATIVE by DNA a mplification The amplified DNA assay is cleared by [facility] for non-medicolegal diagnostic testing in [facility] adult population. Neisseria gonorrhea DNA Probe ?FINAL ? 08/09/10 12:56 Neisseria gonorrhea NEGATIVE by DNA amp lification. The amplified DNA assay is cleared by [facility] for non-medicolegal diagnostic testing in [facility] adult population. Specimen (Source) Anatomical Collection Method Collection Time Re ceived Time Location / / Volume Laterality 08/07/2010 2:28 PM CDT Conor Plata MD LAB_1 Performing Organization Address City/[facility]/ZIP Code Phon e Number HP CONVERSION documented in this encounter Visit Diagnoses Not on filedocumented in this encounter Care Teams News Technical Director Relationship Specialty Start Date End Date Robin Duncan MD PCP - General 06/03/10 10/17/12 [address] [place] [address] documented as of this encounter
--- OUTSIDE RECORDS SUMMARY | 2021-12-18 12:08 | XMS_ITS | Encounter Summary ---
:1980 Author Organization [employer] Address [address] [place] [address] Care Team Providers Name Role Phone Robin Duncan MD Primary Care Provider Encounter Details Date Type Department Care Team Description 06/20/2009 Office Visit [facility] Tamra Cordova [place]-C [address] [address] [place], [place] [address] (Wo rk) Social History Tobacco Use Types Packs/Day Years Used Date Smoking Tobacco: Never Alcohol Use Standard Drinks/Week Comments Not Asked 0 (1 standard drink = 0.6 oz pure alcoho l) Sex Assigned at Date Recorded Not on file documented as of this encounter Last Filed Vital Signs Vital Sign Reading Time Taken Comments Blood Pressure 111/62 06/20/2009 8:08 AM CDT Pulse 94 06/20/2009 8:08 AM CDT Temperature 36.9 ??C (98.4 ??F) 06/20/2009 8:08 AM ORAL C: 3 6.9 C CDT Respiratory Rate 20 06/20/2009 8:08 AM CDT Oxygen Saturation 100% 06/20/2009 8:08 AM CDT Inhaled Oxygen Concentration - - Weight - - Height - - Body Mass Index - - documented in this encounter Progress Notes Tamra Cordova PA-C - 06/20/2009 12:01 AM CDT Progress Notes signed by Tamra Cordova PA-C at 06/25/09 0734 Author: Tamra Cordova PA-C Service: (none) Author Type: Physician Capture Manager Filed: 06/22/10 2144 Note Time: 06/20/09 0001 Status: Signed Design Engineer: Tamra Cordova PA-C (Resource) NAME: LORA STEWART MR#: [id number] ACCT: [id number] VISIT: [id number] DICTATING CLINICIAN: TAMRA CORDOVA PA-C CONFIRM #: [id number] LOC: 520 CLINIC PROGRESS NOTE DATE OF VISIT: 06/20/2009 SUBJECTIVE: This is a 29-year-old male who presents with 3- or 4-day history of a sore throat, runny nose, some sinus congestion, some posterior nasal drainage that he coughed up this morning. It had a greenish color to it, but it feels like it is just in the throat. No fever. No ear pain. No shortness of breath or wheezing. No illness exposure. He has a history of seasonal allergies, but he is not sure if this is from his allergies or if it is a cold that he picked up. No other symptoms. PAST MEDICAL HISTORY: Please see LastWord. ADR/ALLERGIES: PLEASE SEE LASTWORD. MEDICATIONS: Please see LastWord. OBJECTIVE: VS: BP: 111/62. T: 98.4. P: 94. R: 20. O2 saturation: 100%. Well-developed, well-nourished male, in no apparent distress. SKIN: Warm and dry. ENT: Ears: Fluid but no infection. Sinuses: Nontender. Throat: Slightly injected. Tonsils: Look normal. NECK: Supple, without adenopathy. LUNGS: Clear throughout. HEART: Regular rate and rhythm. ASSESSMENT: URI versus allergies and sinus congestion. PLAN: I am going to have him stopped the Nora D that he is using and switched to Mucinex D, use Flonase 1-2 sprays per nostril q.d. p.r.n. Symptomatic treatment as needed, including Delsym cough syrup and ibuprofen. If he develops signs of a sinus infection, and I told him what to look for, he was told he could fill a prescription for Z-Stefan, #1, use as directed. If he has any other problems, he was told to return. Patient was agreeable. [id number] C: 06/20/09 16:31 CONFIRM #: [id number] documented in this encounter Plan of Treatment Not on filedocumented as of this encounter Visit Diagnoses Not on filedocumented in this encounter Care Teams Backside Grinder Relationship Specialty Start Date End Date Robin Duncan MD PCP - General 06/03/10 10/17/[address] [place] [id number] documented as of this encounter
--- OUTSIDE RECORDS SUMMARY | 2021-12-18 12:08 | XMS_ITS | Encounter Summary ---
:1980 Author Organization [facility] Address [address] [place] [address] Care Team Providers Name Role Phone Robin Duncan MD Primary Care Provider Encounter Details Date Type Department Care Team Description 03/26/2009 PN Conversion Only [facility] [address] [place] [address] Social History Tobacco Use Types Packs/Day Years Used Date Smoking Tobacco: Never Alcohol Use Standard Drinks/Week Comments Not Asked 0 (1 standard drink = 0.6 oz pure alcoho l) Sex Assigned at Date Recorded Not on file documented as of this encounter Plan of Treatment Not on filedocumented as of this encounter Visit Diagnoses Not on filedocumented in this encounter Care Teams Floriculture Professor Relationship Specialty Start Date End Date Robin Duncan MD PCP - General 06/03/10 10/17/12 [address] [place] [address] documented as of this encounter
--- OUTSIDE RECORDS SUMMARY | 2021-12-18 12:08 | XMS_ITS | Encounter Summary ---
:1980 Author Organization [employer] Address [address] [facility] [place] [address] Care Team Providers Name Role Phone Robin Duncan MD Primary Care Provider Encounter Details Date Type Department Care Team Description 08/29/2009 Office Visit [facility] [place] [address] [place] [address] [place] [address] [phone] Social History Tobacco Use Types Packs/Day Years [...] 2329 Note Time: 08/29/09 0001 Status: Signed Miller Supervisor: Perico Portillo MD (Physician) NAME: LORA STEWART MR#: [id number] ACCT: [id number] VISIT: [id number] DICTATING CLINICIAN: Perico Portillo MD CONFIRM #: [id number] LOC: 520 CLINIC PROGRESS NOTE DATE OF [...] negative. ASSESSMENT: Viral pharyngitis. PLAN: Symptom control. [id number] C: 08/30/09 07:03 CONFIRM #: [id number] documented in this encounter Plan of Treatment Not on filedocumented as of this encounter Visit Diagnoses Not on filedocumented in this encounter Care Teams Cloth Tester Relationship Specialty Start Date End Date Robin Duncan MD PCP - General 06/03/10 10/17/12 [address] [place] [address] documented as of this encounter
--- OUTSIDE RECORDS SUMMARY | 2021-12-18 12:08 | XMS_ITS | Encounter Summary ---
:[address] [address] [facility] Address [address] [place] [address] Care Team Providers Name Role Phone Robin Duncan MD Primary Care Provider Encounter Details Date Type Department Care Team Description 08/08/2010 PN Conversion Only RIRIE CONVERSIO N [place], [address] [facility] [address] [address] [facility] [address] [place] [phone] (Wo rk) Social History Tobacco [...] Direct LDL(If Needed) (08/08/2010 8:50 AM CDT) [facility] gist Method Time Signature Cholesterol 156 0 [...] Ibis Plata MD LAB_1 Performing Organization Address City/[facility]/ZIP Code Phon e Number HP CONVERSION (ABNORMAL) GLUCOSE (08/08/2010 8:50 AM CDT) athologist Signature Lab Glucose 114 (H) 60 - 100 HP CONVERSION mg/dL Specimen (Source) Anatomical Collection Method Collection Time Re ceived Time Location / / Volume Laterality 08/08/2010 8:50 AM CDT Ibis Plata MD LAB_1 Performing Organization Address City/[facility]/ZIP Code Phon e Number HP CONVERSION AST (08/08/2010 8:50 AM CDT) [facility] gist Method Time Signature Aspartate 20 0 - 45 HP CONVERSION Aminotransferase U/L Specimen (Source) Anatomical Collection Method Collection Time Re ceived Time Location / / Volume Laterality 08/08/2010 8:50 AM CDT Ibis Plata MD LAB_1 Performing Organization Address City/[facility]/ZIP Code Phon e Number HP CONVERSION ALT (SGPT) (08/08/2010 8:50 AM CDT) [facility] gist Method Time Signature Alanine 22 4 - 55 HP CONVERSION Aminotransferase U/L Specimen (Source) Anatomical Collection Method Collection Time Re ceived Time Location / / Volume Laterality 08/08/2010 8:50 AM CDT Ibis Plata MD LAB_1 Performing Organization Address City/State/ZIP Code Phon e Number HP CONVERSION documented in this encounter Visit Diagnoses Not on filedocumented in this encounter Care Teams Helper Maintenance Cleaning Relationship Specialty Start Date End Date Robin Duncan MD PCP - General 06/03/10 10/17/12 [address] [place] [address] documented as of this encounter
--- OUTSIDE RECORDS SUMMARY | 2021-12-18 12:08 | XMS_ITS | Encounter Summary ---
:1980 Author Organization [facility] Address [address] [place] [address] Care Team Providers Name Role Phone Robin Duncan MD Primary Care Provider Reason for Visit Reason Comments CONSULT Encounter Details Date Type Department Care Team Description 06/13/2011 Notes/Orders [facility] Aniya Abad [address] [place] [address] Social History Tobacco Use Types Packs/Day [...] for ThursdayJune 15 at 10:30am in the [facility], 5th floor, [facility]. Called and left message for pt to call back for appt information. Yolette Accoville DA number, . documented in this encounter Plan of Treatment Not on filedocumented as of this encounter Visit Diagnoses Not on filedocumented in this encounter Care Teams Sponsorship Manager Relationship Specialty Start Date End Date Robin Duncan MD PCP - General 06/03/10 10/17/12 [address] [place] [address] documented as of this encounter
--- OUTSIDE RECORDS SUMMARY | 2021-12-18 12:08 | XMS_ITS | Encounter Summary ---
:1980 Author Organization [employer] Address [address] [place] [address] Care Team Providers Name Role Phone Robin Duncan MD Primary Care Provider Encounter Details Date Type Department Care Team Description 07/04/2009 Office Visit [facility] [place] [address] [facility] [address] [place] [address] [place] [address] [phone] Social History Tobacco Use Types Packs/Day Years [...] 2206 Note Time: 07/04/09 0001 Status: Signed Hydrogen Plant Operations Manager: Ramon Cedillo MD (Physician) NAME: LORA STEWART MR#: [id number] ACCT: [id number] VISIT: [id number] DICTATING CLINICIAN: Ramon Cedillo MD CONFIRM #: [id number] LOC: 520 CLINIC PROGRESS NOTE DATE OF [...] measures for the neck with a neck pattern illustrator's manual provided. He preferred to do this on his own versus therapy right now. We have prescribed Flexeril 10 mg, #41, t.i.d. p.r.n. muscle spasm and pain. Cautioned regarding sedative properties. Will start, Anaprox DS 1 b.i.d. with food for joint aches and stiffness. If not improving or more symptoms develop, then recheck with doctor. [id number] C: 07/05/09 14:37 CONFIRM #: [id number] documented in this encounter Plan of Treatment Not on filedocumented as of this encounter Visit Diagnoses Not on filedocumented in this encounter Care Teams High [employer] Industrial Arts Teacher Relationship Specialty Start Date End Date Robin Duncan MD PCP - General 06/03/10 10/17/12 [address] [place] [address] [place] [id number] documented as of this encounter
--- OUTSIDE RECORDS SUMMARY | 2021-12-18 12:08 | XMS_ITS | Encounter Summary ---
:[address] [facility] Address [address] [place] [address] Care Team Providers Name Role Phone Robin [...] disc; 3931 Neurosurgery R, Radiculopathy, cervical [address] [place], [place] [address] Social History Tobacco Use Types Packs/Day Years [...] Filed: 06/17/112040 Note Time: 06/17/11632 Status: Signed Code Enforcement Officer: JOSEY Cunha (Physician) NAME: LORA STEWART MR#: [id number] CSN: [id number] AUTHENTICATING CLINICIAN: JOSEY Cunah CONFIRM #: [id number] LOC: 223 CLINIC PROGRESS NOTE DATE OF [...] details. 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 He is , does consume [...] level anterior fusion. 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
--- OUTSIDE RECORDS SUMMARY | 2021-12-18 12:08 | XMS_ITS | Encounter Summary ---
:1980 Author Organization [employer] Address [address] [place] [address] Care Team Providers Name Role Phone Robin Duncan MD Primary Care Provider Reason for Visit Reason Comments Spine Cervical Encounter Details Date Type Department Care Team Description 06/17/2011 Office Visit [facility] Maria De Jesus Colindres, Cerv icalgia (Primary Dx); Therapy PT Displacement of cervical intervertebral disc without myelopathy [address] [address] [place] [address] [place] [phone] [address] Social History Tobacco Use Types Packs/Day [...] traction trial 15# x15 minutes. -Ice (CPT 23882): Cold packs x10 minutes after manual treatment. [...] in 2 weeks. in 4 weeks. - skin care specialist with decreased pain by 50-75% [...] tolerated. Procedures: Cold Packs 1+ areas (CPT 61586). Mechanical Traction (CPT 24063). Total treatment time: 35 minutes. Therapist: Maria De Jesus Colindres PT, 5778 documented in this encounter Plan of Treatment Not on filedocumented as of this encounter Visit Diagnoses Diagnosis Cervicalgia - Primary Displacement of cervical intervertebral disc without myelopathy (HRC) Displacement of cervical intervertebral disc without myelopathy documented in this encounter Care Teams Sports Medicine Masseur Relationship Specialty Start Date End Date Robin Duncan MD PCP - General 06/03/10 10/17/12 [address] [place] [address] documented as of this encounter
--- OUTSIDE RECORDS SUMMARY | 2021-12-18 12:08 | XMS_ITS | Encounter Summary ---
:1980 Author Organization [facility] Address [address] [place] [address] Care Team Providers Name Role Phone Md NATHANIEL Boateng Primary Care Provider Encounter Details Date Type Department Care Team Description 03/06/2009 Notes/Orders CONVERSION CONVERSION Conversion , User [place] [address] Social History Tobacco Use Types Packs/Day Years [...] nts ENDOSCOPY, SIGMOID Routine 03/06/2009 6:21 PM LONG LINE TEAMSTER documented in this encounter Results Endoscopy, sigmoid (03/06/2009 6:21 PM LONG LINE TEAMSTER) Specimen (Source) Anatomical Location Collection Method / Collectio n Time Received Time / Laterality Volume User Conversion PN GI PROCEDURE ORDERABLES Performing Organization Address City/State/ZIP Code Phon e Number HP CONVERSION documented in this encounter Visit Diagnoses Not on filedocumented in this encounter Care Teams Urban Planning Professor Relationship Specialty Start Date End Date Md Boateng MD PCP - General 10/18/12 [place] [address] documented as of this encounter
--- OUTSIDE RECORDS SUMMARY | 2021-12-18 12:08 | XMS_ITS | Encounter Summary ---
:1980 Author Organization [facility] Address [address] [place] [address] Care Team Providers Name Role Phone Robin Duncan MD Primary Care Provider Encounter Details Date Type Department Care Team Description 03/06/2009 Procedure Visit [facility] [address] [facility] [address] [place] [address] Social History Tobacco Use Types Packs/Day Years [...] 1906 Note Time: 03/06/09 0001 Status: Signed Club Licensee: Omar Kwan MD (Physician) NAME: LORA STEWART MR#: [id number] ACCT: [id number] VISIT: [id number] DICTATING CLINICIAN: OMAR KWAN MD CONFIRM #: [id number] LOC: 491 CLINIC PROCEDURE REPORT DATE OF [...] least with this part of the evaluation. [id number] C: 03/06/09 11:32 CONFIRM #: [id number] RING MACHINE OPERATOR documented in this encounter Plan of Treatment Not on filedocumented as of this encounter Visit Diagnoses Not on filedocumented in this encounter Care Teams Investment Consultant Relationship Specialty Start Date End Date Robin Duncan MD PCP - General 06/03/10 10/17/12 [address] [place] [address] documented as of this encounter
--- OUTSIDE RECORDS SUMMARY | 2021-12-18 12:08 | XMS_ITS | Encounter Summary ---
:1980 Author Organization [employer] Address [address] [place] [address] Care Team Providers Name Role Phone Robin Duncan MD Primary Care Provider Reason for Visit Reason Comments Neck Pain Encounter Details Date Type Department Care Team Description 06/11/2011 Office Visit [facility] Aniya Esparza Cervical pain (neck); Medicine K Radiculopathy of cervical [place]e [address] [place] [phone] Social History Tobacco Use Types Packs/Day Years [...] see urgent care and PT notes in [facility] for further information. Other than above, complete [...] extremity muscle strength is normal bilaterally. Normal post exchange manager strength bilaterally Sensation is normal bilaterally. Reflexes: [...] PA-C on 06/11/2011 at 6:15 PMpatient informed HAT INSPECTOR AND PACKER Miscellaneous - 04/11/2016 7:06 PM CSTNotes Recorded by Aniya Esparza PA-C on 06/13/2011 at 3:32 PMPatient informed, follow-up scheduled with neurosurgery HAT INSPECTOR AND PACKER Letter - 06/11/2011 12:00 AM CDT Images from the original note were not included. [address] [address] June 11, 2011 Patient: Augustus Ramirez Jr. Date of : 1980 Date of Visit: 06/11/2011 To Whom It May Concern: It is my medical opinion that Augustus Ramirez should remain out of participation until Thursday06/16/10. If you have any questions or concerns, please don't hesitate to call. Sincerely, Aniya Esaprza PA-C HAT INSPECTOR AND PACKER documented in this encounter Plan of Treatment [...] nos documented in this encounter Care Teams Lead Etl Developer Relationship Specialty Start Date End Date Robin Duncan MD PCP - General 06/03/10 10/17/12 [address] [address] [place] [address] documented as of this encounter
--- OUTSIDE RECORDS SUMMARY | 2021-12-18 12:08 | XMS_ITS | Encounter Summary ---
:1980 Author Organization [employer] Address [address] [place] [address] Care Team Providers Name Role Phone Robin Duncan MD Primary Care Provider Encounter Details Date Type Department Care Team Description 05/06/2010 Office Visit [facility] Efrain Verdugo PA-C [address] [place] [address] [place] [address] [phone] (Wo rk) Social History Tobacco Use Types Packs/Day Years Used Date Smoking Tobacco: Never Alcohol Use Standard Drinks/Week Comments Not Asked 0 (1 standard drink = 0.6 oz pure alcoho l) Sex Assigned at Date Recorded Not on file documented as of this encounter Last Filed Vital Signs Vital Sign Reading Time Taken Comments Blood Pressure 100/64 05/06/2010 6:51 PM LABEL FUSER TENDER Pulse 84 05/06/2010 6:51 PM LABEL FUSER TENDER Temperature 36.9 ??C (98.4 ??F) 05/06/2010 6:51 PM ORAL C: 3 6.9 C LABEL FUSER TENDER Respiratory Rate 16 05/06/2010 6:51 PM LABEL FUSER TENDER Oxygen Saturation 97% 05/06/2010 6:51 PM C: Oximeter Spot LABEL FUSER TENDER Check(OSC) Inhaled Oxygen - - Concentration Weight [...] or shortness of breath. RTC p.r.n. *SH~DNS~SOAP1 L FUSER TENDER documented in this encounter Plan of Treatment Not on filedocumented as of this encounter Visit Diagnoses Not on filedocumented in this encounter Care Teams Dental Scheduler Relationship Specialty Start Date End Date Robin Duncan MD PCP - General 06/03/10 10/17/[id number] [place] [address] [place] [address] documented as of this encounter
--- OUTSIDE RECORDS SUMMARY | 2021-12-18 12:08 | XMS_ITS | Encounter Summary ---
:1980 Author Organization [facility] Address [address] [place] [address] Care Team Providers Name Role Phone Robin Duncan MD Primary Care Provider Reason for Visit Reason Comments Neck Pain Encounter Details Date Type Department Care Team Description 06/09/2011 Hospital Encounter [facility] Belkis Mendez , Neck pain, acute Care [address] [place] [address] Social History Tobacco Use Types Packs/Day Years [...] Refills Start Date End Date amphetamine-dextroamphetam LW Comment:student support services director. 120 0 08/08/2010 ine (ADDERALL) 20 MG [...] 06/11/11836 Note Time: 06/09/11 1239 Status: Signed Duplicator Punch Operator: Belkis Mendez MD (Physician) NAME: LORA STEWART MR#: [id number] CSN: [id number] AUTHENTICATING CLINICIAN: Belkis Mendez MD CONFIRM #: [id number] LOC: 520 CLINIC PROGRESS NOTE DATE OF [...] strength with triceps and biceps testing, 5/5 supervisor knitting strength. Sensation is intact in upper extremities [...] next 3 days. KSG:ANGELA C: CONFIRM #: [id number] documented in this encounter Miscellaneous Notes Medication [...] Lora Stewart . is a patient at [facility] and [facility]. [] Should take medications as [...] for medical reason. Signature of / RN S REPRESENTATIVES documented in this encounter Plan of Treatment Not on filedocumented as of this encounter Visit Diagnoses Diagnosis Neck pain, acute Cervicalgia documented in this encounter Care Teams Social Sciences Instructor Relationship Specialty Start Date End Date Robin Duncan MD PCP - General 06/03/10 10/17/12 [address] [address] [place] [address] documented as of this encounter
--- OUTSIDE RECORDS SUMMARY | 2021-12-18 12:08 | XMS_ITS | Encounter Summary ---
:1980 Author Organization [email or web address] Address [address] [facility] [place] [address] Care Team Providers Name Role Phone Robin Duncan MD Primary Care Provider Encounter Details Date Type Department Care Team Description 06/13/2011 Hospital Encounter [facility] Aniya Esparza [address] [facility]. [place], [place] [address] Social History Tobacco Use Types Packs/Day Years Used Date Smoking Tobacco: Never Alcohol Use Standard Drinks/Week Comments Not Asked 0 (1 standard drink = 0.6 oz pure alcoho l) Sex Assigned at Date Recorded Not on file documented as of this encounter Medications at Time of Discharge Medication Sig Dispensed Refills Start Date End Date amphetamine-dextroamphetami LW Comment:Pick 120 0 10/2010 ne (ADDERALL) 20 MG tablet up. LW Addl Instr:Take 1-2 tabs bid Indicated [...] needed for Muscle spasms for 7 days. fexofenadine/pseudoephedrin Take 1 tablet by 60 3 10/16/2011 e (ANI-D ALLERGY & mouth 2 times CONGESTION) 60-120 MG daily. LW Addl tablet Instr:Indicated for: Allergies fluticasone (aka FLONASE) Place 2 sprays 16 g 0 201110/16/2011 50 MCG/ACT nasal spray into each nostril daily (every 24 hours). Dose is for each nostril. methylPREDNISolone (AKA Take by mouth. 21 tablet 0 06/11/19 12 06/16/2011 MEDROL 21 TABLET DOSEPACK) Follow package 4 MG tabletIndications: directions. Cervical pain (neck), Radiculopathy of cervical spine oxyCODONE-acetaminophen Take 1-2 tablets 12 tablet 0 201107/10/2011 (aka PERCOCET) 5-325 MG by mouth every 4 tablet hours as needed for Pain. Maximum 12 tablets/24 hours Indications: PAIN documented as of this encounter Plan of Treatment Not on filedocumented as of this encounter Visit Diagnoses Not on filedocumented in this encounter Care Teams Domestic Technician Relationship Specialty Start Date End Date Robin Duncan MD PCP - General 06/03/10 10/17/12 [address] [address] [place] [address] documented as of this encounter
--- OUTSIDE RECORDS SUMMARY | 2021-12-18 12:08 | XMS_ITS | Encounter Summary ---
:1980 Author Organization [facility] Address [address] [facility] [place] [address] Care Team Providers Name Role Phone Robin Duncan MD Primary Care Provider Reason for Visit Reason Comments Other Encounter Details Date Type Department Care Team Description 08/09/2010 Telephone CONV AFTER HR NUR[address] Center, Message Other [address] [place] [address] Social History Tobacco Use Types Packs/Day Years Used Date Smoking Tobacco: Never Alcohol Use Standard Drinks/Week Comments Not Asked 0 (1 standard drink = 0.6 oz pure alcoho l) Sex Assigned at Date Recorded Not on file documented as of this encounter Progress Notes Center, Message - 08/09/2010 5:01 PM CDT Phone Note filed by yourdelivery at 08/12/10 1143 Author: yourdelivery Service: (none) Author Type: (none) Filed: 08/12/10 1143 Note Time: 08/09/10 170 Status: Addendum Card Punching Machine Operator: yourdelivery (Resource) Related Notes: Original Note by [facility] Conversion (Physician) filed at 08/12/10 1143 Lab/Radiology Results Caller Name/Relationship: hannah, patient Primary Bedspread Folder: Dakota What test result is needed? blood work When and where was test done? 08/07 and 08/08 at [place] Who ordered the test? Plata Ticket Sorter: Hannah Best call back number: [phone] c Is it OK to leave a [...] 08-12-10 Acknowledged by HEATHER SPAIN on 11:39am ORATE SAFETY COORDINATOR documented in this encounter Plan of Treatment Not on filedocumented as of this encounter Visit Diagnoses Not on filedocumented in this encounter Care Teams Metalizer Relationship Specialty Start Date End Date Robin Duncan MD PCP - General 06/03/10 10/17/12 [address] [address] [place] [address] documented as of this encounter
--- OUTSIDE RECORDS SUMMARY | 2021-12-18 12:08 | XMS_ITS | Encounter Summary ---
:1980 [facility] Address [address] [place] [address] Care Team Providers Name Role Phone Robin Duncan MD Primary Care Provider Encounter Details Date Type Department Care Team Description 06/11/2011 Imaging [facility] [address] [place] [address] Social History Tobacco Use [...] on filedocumented in this encounter Care Teams Trackmobile Operator Relationship Specialty Start Date End Date Robin Duncan MD PCP - General 06/03/10 10/17/12 [address] [place] [place] [address] documented as of this encounter
--- OUTSIDE RECORDS SUMMARY | 2021-12-18 12:08 | XMS_ITS | Encounter Summary ---
:1980 Author Organization [facility] Address [address] [place] [address] Care Team Providers Name Role Phone Robin Duncan MD Primary Care Provider Encounter Details Date Type Department Care Team Description 05/07/2009 PN Conversion Only [facility] [address] [place] [address] Social History Tobacco Use Types Packs/Day Years Used Date Smoking Tobacco: Never Alcohol Use Standard Drinks/Week Comments Not Asked 0 (1 standard drink = 0.6 oz pure alcoho l) Sex Assigned at Date Recorded Not on file documented as of this encounter Plan of Treatment Not on filedocumented as of this encounter Visit Diagnoses Not on filedocumented in this encounter Care Teams Record Cutter Relationship Specialty Start Date End Date Robin Duncan MD PCP - General 06/03/10 10/17/12 [address] [address] [place] [address] documented as of this encounter
--- OUTSIDE RECORDS SUMMARY | 2021-12-18 12:08 | XMS_ITS | Encounter Summary ---
:1980 Author Organization [facility] Address [address] [facility] [place] [address] Care Team Providers Name Role Phone Robin Duncan MD Primary Care Provider Encounter Details Date Type Department Care Team Description 08/07/2010 Office Visit [facility] [place] [address] [place] [address] [place] [address] [phone] (Wo rk) Social History Tobacco Use Types [...] 1303 Note Time: 08/07/10 0001 Status: Signed Exercise Physiologist: Ibis Plata MD (Physician) NAME: LORA STEWART MR#: [id number] ACCT: [id number] VISIT: [id number] DICTATING CLINICIAN: Ibis Plata MD CONFIRM #: [id number] LOC: 502 CLINIC PHYSICAL DATE OF VISIT: [...] by the psychiatrist. SS:ANGELA C: CONFIRM #: [id number] documented in this encounter Plan of Treatment Not on filedocumented as of this encounter Visit Diagnoses Not on filedocumented in this encounter Care Teams Cloth Shrinking Supervisor Relationship Specialty Start Date End Date Robin Duncan MD PCP - General 06/03/10 10/17/12 [address] [address] [place] [address] documented as of this encounter
--- OUTSIDE RECORDS SUMMARY | 2021-12-18 12:08 | XMS_ITS | Encounter Summary ---
:1980 Author Organization [facility] Address [address] [place] [address] Care Team Providers Name Role Phone Robin Duncan MD Primary Care Provider Encounter Details Date Type Department Care Team Description 12/20/2009 PN Conversion Only SHAREPOINT ANALYST [address] [place] [address] Social History Tobacco Use Types Packs/Day Years Used Date Smoking Tobacco: Never Alcohol Use Standard Drinks/Week Comments Not Asked 0 (1 standard drink = 0.6 oz pure alcoho l) Sex Assigned at Date Recorded Not on file documented as of this encounter Plan of Treatment Not on filedocumented as of this encounter Visit Diagnoses Not on filedocumented in this encounter Care Teams Economic Consultant Relationship Specialty Start Date End Date Robin Duncan MD PCP - General 06/03/10 10/17/12 [address] [address] [place] [address] documented as of this encounter
--- OUTSIDE RECORDS SUMMARY | 2021-12-18 12:08 | XMS_ITS | Encounter Summary ---
:1980 Author Organization [employer] Address [address] [facility] [place] [address] Care Team Providers Name Role Phone Robin Duncan MD Primary Care Provider Encounter Details Date Type Department Care Team Description 08/13/2009 Office Visit [facility] Efrain Verdugo PA-C [address] [place] [address] [place] [address] [phone] (Wo rk) Social History Tobacco Use Types [...] Verdugo PA-C Service: (none) Author Type: Physician Rat Culturist Filed: 06/22/10 5532 Note Time: 08/13/09 0001 Status: Signed Music Educator: Efrain Verdugo PA-C (Resource) SUBJECTIVE: Augustus is [...] on filedocumented in this encounter Care Teams Inspector Bicycle Relationship Specialty Start Date End Date Robin Duncan MD PCP - General 06/03/10 10/17/[address] [place] [address] documented as of this encounter
--- OUTSIDE RECORDS SUMMARY | 2021-12-18 12:08 | XMS_ITS | Encounter Summary ---
:1980 Author Organization [facility] Address [address] [place] [address] Care Team Providers Name Role Phone Robin Duncan MD Primary Care Provider Encounter Details Date Type Department Care Team Description 08/29/2009 PN Conversion Only [place] [address] [place] [address] [place] [address] Social History Tobacco Use Types Packs/Day Years [...] (08/29/2009 1:16 PM CDT) [facility] Signature Strep Group A SEE [...] Perico Portillo MD LAB_1 Performing Organization Address City/[facility] Code Phon e Number [...] on filedocumented in this encounter Care Teams Magnetic Grinder Operator Relationship Specialty Start Date End Date Robin Duncan MD PCP - General 06/03/10 10/17/12 [address] [place] [address] documented as of this encounter
--- OUTSIDE RECORDS SUMMARY | 2021-12-18 12:08 | XMS_ITS | Encounter Summary ---
:1980 Author Organization [employer] Address [address] [facility] [place] [address] Care Team Providers Name Role Phone Robin Duncan MD Primary Care Provider Reason for Visit Reason Comments Patient Calling Back Encounter Details Date Type Department Care Team Description 06/13/2011 Telephone [facility] Aniya Abad Patient Calling Back [address] [place] [address] Social History Tobacco Use Types Packs/Day [...] nos documented in this encounter Care Teams Feed Adviser Relationship Specialty Start Date End Date Robin Duncan MD PCP - General 06/03/10 10/17/12 [address] [address] [place] [address] documented as of this encounter
--- OUTSIDE RECORDS SUMMARY | 2021-12-18 12:08 | XMS_ITS | Encounter Summary ---
:1980 Author Organization [employer] Address [address] [place] [address] Care Team Providers Name Role Phone Robin Duncan MD Primary Care Provider Reason for Visit Reason Comments Spine Cervical Encounter Details Date Type Department Care Team Description 06/11/2011 Office Visit [facility] Deepak Portillo (Primary Therapy Alma Landaverde, PT Dx) [address] [place] [address] [place], [place] [phone] (Wo rk) Social History Tobacco Use Types Packs/Day Years Used Date Smoking Tobacco: Never Alcohol Use Standard Drinks/Week Comments Not Asked 0 (1 standard drink = 0.6 oz pure alcoho l) Sex Assigned at Date Recorded Not on file documented as of this encounter Progress Notes Alma Portillo, PT - 06/11/2011 1:55 PM CDT [facility] Physical Therapy Progress Note [...] in 2 weeks. in 4 weeks. 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 care unit nurse with decreased pain by 50-75% in 2 [...] for recheck later today,may consider medrol dose fabian if MD feels appropriate Procedures: manual therapy 25 min (CPT 70140) therapeutic ex 5 min (CPT 74547) cold pack 15 min (CPT 29994) Total Treatment Time: 45 min Therapist: Alma Mao, PT, 9544 documented in this encounter Plan of Treatment Not on filedocumented as of this encounter Visit Diagnoses Diagnosis Cervicalgia - Primary documented in this encounter Care Teams Wave Soldering Machine Operator Relationship Specialty Start Date End Date Robin Duncan MD PCP - General 06/03/10 10/17/12 [address] [place] [place] [address] documented as of this encounter
--- OUTSIDE RECORDS SUMMARY | 2021-12-18 12:09 | XMS_ITS | Encounter Summary ---
:1980 Author Organization [employer] Address [address] [place] [address] Care Team Providers Name Role Phone Robin Duncan MD Primary Care Provider Encounter Details Date Type Department Care Team Description 03/17/2008 Office Visit [facility] Obed Iglesias MD [facility] [address] [facility] [address] [facility] [address] [place], [place] [address] [place] [address] [phone] (Wo rk) Social History Tobacco Use Types [...] 1004 Note Time: 03/17/08 0001 Status: Signed Cold Rolling Supervisor: Obed Iglesias MD (Physician) NAME: LORA STEWART MR#: [id number] ACCT: [id number] VISIT: [id number] DICTATING CLINICIAN: OBED IGLESIAS MD CONFIRM #: [id number] LOC: 1040 CLINIC PROGRESS NOTE DATE OF [...] breakouts noted. Lips mildly dry. ASSESSMENT: 1. Nxfatg-lo-qfosvtug acne, in remission, status post complete course of Accutane. Will obtain CBC, AST, and cholesterol profile today. He was counseled that he should not donate blood at least 30 days after taking Accutane. He had no further medication. 2. Mild dryness of the lips. He will continue on with Vaseline as needed. PLAN: See assessment. [id number] C: 03/18/08 09:36 CONFIRM #: [id number] NT SUCCESS DIRECTOR documented in this encounter Plan of Treatment Not on filedocumented as of this encounter Visit Diagnoses Not on filedocumented in this encounter Care Teams Sales Representative [employer] Relationship Specialty Start Date End Date Robin Duncan MD PCP - General 06/03/10 10/17/12 [address] [place] [address] documented as of this encounter
--- OUTSIDE RECORDS SUMMARY | 2021-12-18 12:09 | XMS_ITS | Encounter Summary ---
:1980 Author Organization [facility] Address [address] [place] [address] Care Team Providers Name Role Phone Robin Duncan MD Primary Care Provider Encounter Details Date Type Department Care Team Description 06/13/2008 PN Conversion Only [place] Luanne Figueroa, [address] [facility] [place], [place] [address] [address] [place], [place] [id number] (Wo rk) Social History Tobacco Use Types [...] Laterality 06/13/2008 2:10 PM CDT Luanne Umanzor TUNNEL ELASTIC OPERATOR ZIGZAG, CORN COOKER LAB_1 Performing Organization Address City/State/ZIP Code Phon e Number HP CONVERSION documented in this encounter Visit Diagnoses Not on filedocumented in this encounter Care Teams Television Servicer Relationship Specialty Start Date End Date Robin Duncan MD PCP - General 06/03/10 10/17/[address] [place] [address] documented as of this encounter
--- OUTSIDE RECORDS SUMMARY | 2021-12-18 12:09 | XMS_ITS | Encounter Summary ---
:1980 Author Organization [facility] Address [address] [place] [address] Care Team Providers Name Role Phone Robin Duncan MD Primary Care Provider Encounter Details Date Type Department Care Team Description 02/21/2009 PN Conversion Only [place] [address] [place] [address] Social History Tobacco Use Types Packs/Day Years Used Date Smoking Tobacco: Never Alcohol Use Standard Drinks/Week Comments Not Asked 0 (1 standard drink = 0.6 oz pure alcoho l) Sex Assigned at Date Recorded Not on file documented as of this encounter Plan of Treatment Not on filedocumented as of this encounter Visit Diagnoses Not on filedocumented in this encounter Care Teams Flaker Operator Relationship Specialty Start Date End Date Robin Duncan MD PCP - General 06/03/10 10/17/[address] [place] [address] documented as of this encounter
--- OUTSIDE RECORDS SUMMARY | 2021-12-18 12:09 | XMS_ITS | Encounter Summary ---
:[address] [facility] Address [address] [place] [address] Care Team Providers Name Role Phone Robin Duncan MD Primary Care Provider Encounter Details Date Type Department Care Team Description 01/02/2009 PN Conversion Only [place] [facility] N Ibis Plata, [address] [place] [address] [facility] [address] [place] [address] (Wo rk) Social History Tobacco [...] 11:42 AM Result s for this COUNT-W/DIFF INSTRUCTIONAL DESIGNER procedure are i n the results section. documented in this encounter Results Hemogram/Plts/Diff (01/02/2009 11:42 AM INSTRUCTIONAL DESIGNER) [facility] Method Time Signature White Blood Cell 6.5 [...] - HP CONVERSION Hemoglobin Conc 36.5 gm/dL [place] RDW 12.1 11.0 - HP CONVERSION 15.0 [...] / / Volume Laterality 01/02/2009 11:42 AM INSTRUCTIONAL DESIGNER Ibis Plata MD LAB_1 Performing Organization Address City/State/ZIP Code Phon e Number HP CONVERSION documented in this encounter Visit Diagnoses Not on filedocumented in this encounter Care Teams Transition Lead Relationship Specialty Start Date End Date Robin Duncan MD PCP - General 06/03/10 10/17/12 [address] [address] [place] [address] documented as of this encounter
--- OUTSIDE RECORDS SUMMARY | 2021-12-18 12:09 | XMS_ITS | Encounter Summary ---
:1980 Author Organization [facility] Address [address] [place] [address] Care Team Providers Name Role Phone Robin Duncan MD Primary Care Provider Encounter Details Date Type Department Care Team Description 02/10/2008 PN Conversion Only [place] Avis Breen [address] [facility] [place] [address] [place], [place] [address] (Wo rk) Social History Tobacco Use Types [...] PM Result s for this DIRECT LDL(IF PERSONAL CAREGIVER procedure are in NEEDED) the results section. COMPLETE BLOOD Routine 02/10/2008 5:29 PM Results for this COUNT-W/DIFF PERSONAL CAREGIVER procedure are i n the results section. AST Routine 02/10/2008 5:29 PM Results f or this PERSONAL CAREGIVER procedure are i n the results section. documented in this encounter Results Complete Blood Count-W/Diff (02/10/2008 5:29 PM PERSONAL CAREGIVER) [facility] Method Time Signature White Blood Cell [...] - HP CONVERSION Hemoglobin Conc 36.5 gm/dL [place] RDW 12.1 11.0 - HP CONVERSION 15.0 [...] / / Volume Laterality 02/10/2008 5:29 PM PERSONAL CAREGIVER Avis Marlow MD LAB_1 Performing Organization Address City/State/ZIP Code Phon e Number HP CONVERSION AST (02/10/2008 5:29 PM PERSONAL CAREGIVER) [employer] Method Time Signature Aspartate 27 0 - 45 HP CONVERSION Aminotransferase U/L Specimen (Source) Anatomical Collection Method Collection Time Re ceived Time Location / / Volume Laterality 02/10/2008 5:29 PM PERSONAL CAREGIVER Avis Marlow MD LAB_1 Performing Organization Address City/State/ZIP Code Phon e Number HP CONVERSION Lipid Panel and Direct LDL(If Needed) (02/10/2008 5:29 PM PERSONAL CAREGIVER) [employer] Method Time Signature Length Of Fast 12.0 [...] / / Volume Laterality 02/10/2008 5:29 PM PERSONAL CAREGIVER Avis Marlow MD LAB_1 Performing Organization Address City/State/ZIP Code Phon e Number HP CONVERSION documented in this encounter Visit Diagnoses Not on filedocumented in this encounter Care Teams Shower Attendant Relationship Specialty Start Date End Date Robin Duncan MD PCP - General 06/03/10 10/17/[address] [place] [address] documented as of this encounter
--- OUTSIDE RECORDS SUMMARY | 2021-12-18 12:09 | XMS_ITS | Encounter Summary ---
:1980 Author Organization [facility] Address [address] [place] [address] Care Team Providers Name Role Phone Robin Duncan MD Primary Care Provider Encounter Details Date Type Department Care Team Description 08/16/2008 PN Conversion Only [place] [address] [place] [address] Social History Tobacco Use Types Packs/Day Years Used Date Smoking Tobacco: Never Alcohol Use Standard Drinks/Week Comments Not Asked 0 (1 standard drink = 0.6 oz pure alcoho l) Sex Assigned at Date Recorded Not on file documented as of this encounter Plan of Treatment Not on filedocumented as of this encounter Visit Diagnoses Not on filedocumented in this encounter Care Teams Cuff Folder Relationship Specialty Start Date End Date Robin Duncan MD PCP - General 06/03/10 10/17/[address] [place] [address] documented as of this encounter
--- OUTSIDE RECORDS SUMMARY | 2021-12-18 12:09 | XMS_ITS | Encounter Summary ---
:1980 Author Organization [employer] Address [address] [facility] [facility] [place] [address] Care Team Providers Name Role Phone Robin Duncan MD Primary Care Provider Encounter Details Date Type Department Care Team Description 01/02/2009 Office Visit [facility] [place] [address] [place] [address] [place], [place] [id number] (Wo rk) Social History Tobacco Use Types Packs/Day Years Used Date Smoking Tobacco: Never Alcohol Use Standard Drinks/Week Comments Not Asked 0 (1 standard drink = 0.6 oz pure alcoho l) Sex Assigned at Date Recorded Not on file documented as of this encounter Last Filed Vital Signs Vital Sign Reading Time Taken Comments Blood Pressure 114/72 01/02/2009 11:12 AM DIRECTOR OF CARDIOLOGY Pulse 64 01/02/2009 11:12 AM DIRECTOR OF CARDIOLOGY Temperature - - Respiratory Rate - - Oxygen Saturation - - Inhaled Oxygen Concentration - - Weight 75.3 kg (165 lb 15.8 oz) 01/02/2009 11:12 AM C: 75.3kg DIRECTOR OF CARDIOLOGY Height - - Body Mass Index 22.05 08/22/2005 4:15 PM CDT documented in this encounter Progress Notes Conor Plata MD - 01/02/2009 12:01 AM CST Progress Notes signed by Conor Plata MD at 01/10/09 6728 Author: Conor Plata MD Service: (none) Author Type: Physician Filed: 06/22/10 1738 Note Time: 01/02/09 0001 Status: Signed Interventional Neuroradiologist: Conor Plata MD (Physician) NAME: LORA STEWART MR#: [id number] ACCT: [id number] VISIT: [id number] DICTATING CLINICIAN: CONOR PLATA MD CONFIRM #: [id number] LOC: 502 CLINIC PROGRESS NOTE DATE OF [...] vegetables and fiber intake, and regular exercise. SS:[id number] C: 01/02/09 14:02 CONFIRM #: [id number] CTOR OF CARDIOLOGY documented in this encounter Plan of Treatment Not on filedocumented as of this encounter Visit Diagnoses Not on filedocumented in this encounter Care Teams Apprentice Painter Hand Relationship Specialty Start Date End Date Robin Duncan MD PCP - General 06/03/10 10/17/12 [address] [address] [id number] documented as of this encounter
--- OUTSIDE RECORDS SUMMARY | 2021-12-18 12:09 | XMS_ITS | Encounter Summary ---
:1980 Author Organization [facility] Address [address] [place] [address] Care Team Providers Name Role Phone Robin Duncan MD Primary Care Provider Encounter Details Date Type Department Care Team Description 02/14/2009 PN Conversion Only [place] [facility] N Efrain [place], [address] [facility] [place] [address] [place] [address] [place] [phone] (Wo rk) Social History Tobacco [...] 02/14/2009 6:18 PM Results for this COUNT-W/DIFF BILINGUAL ADMINISTRATIVE ASSISTANT procedure are i n the results section. documented in this encounter Results (ABNORMAL) Hemogram/Plts/Diff (02/14/2009 6:18 PM BILINGUAL ADMINISTRATIVE ASSISTANT) [facility] Method Time Signature White Blood Cell [...] - HP CONVERSION Hemoglobin Conc 36.5 gm/dL [place] RDW 12.1 11.0 - HP CONVERSION 15.0 [...] / / Volume Laterality 02/14/2009 6:18 PM BILINGUAL ADMINISTRATIVE ASSISTANT Efrain Verdugo PA-C LAB_1 Performing Organization Address City/State/ZIP Code Phon e Number HP CONVERSION documented in this encounter Visit Diagnoses Not on filedocumented in this encounter Care Teams Arts Therapist Relationship Specialty Start Date End Date Robin Duncan MD PCP - General 06/03/10 10/17/12 [address] [place] [address] [address] documented as of this encounter
--- OUTSIDE RECORDS SUMMARY | 2021-12-18 12:09 | XMS_ITS | Encounter Summary ---
:1980 Author Organization [employer] Address [address] [place] [address] Care Team Providers Name Role Phone Robin Duncan MD Primary Care Provider Encounter Details Date Type Department Care Team Description 02/26/2009 Office Visit [facility] [place] [address] [place] [address] [place], [place] [address] (Wo rk) Social History Tobacco Use Types Packs/Day Years Used Date Smoking Tobacco: Never Alcohol Use Standard Drinks/Week Comments Not Asked 0 (1 standard drink = 0.6 oz pure alcoho l) Sex Assigned at Date Recorded Not on file documented as of this encounter Last Filed Vital Signs Vital Sign Reading Time Taken Comments Blood Pressure 124/72 02/26/2009 9:22 AM SECURITY INTERN Pulse 68 02/26/2009 9:22 AM SECURITY INTERN Temperature - - Respiratory Rate 18 02/26/2009 9:22 AM SECURITY INTERN Oxygen Saturation - - Inhaled Oxygen Concentration - - Weight - - Height - - Body Mass Index - - documented in this encounter Progress Notes Conor Plata MD - 02/26/2009 12:01 AM CST Progress Notes signed by Conor Plata MD at 03/06/09 1250 Author: Conor Plata MD Service: (none) Author Type: Physician Filed: 06/22/10 0246 Note Time: 02/26/09 0001 Status: Signed Digital Sales Manager: Conor Plata MD (Physician) NAME: LORA STEWART MR#: [id number] ACCT: [id number] VISIT: [id number] DICTATING CLINICIAN: CONOR PLATA MD CONFIRM #: [id number] LOC: 502 CLINIC PROGRESS NOTE DATE OF VISIT: 02/26/2009 SUBJECTIVE: : 1980. CHIEF COMPLAINT: Blood in the rectum. HISTORY OF PRESENTING ILLNESS: Lora is a 28-year-old gentleman who today came in with concerns of again, blood in the rectum that he has noticed again. According to the patient, recently bowel movements are soft. There is no constipation. There is no pain in the bowel movement. This time, blood is a lot. It is like 1 tablespoon bright red and it happened twice now. Last time he was diagnosed with anal fissure and hemorrhoids. He has been to urgent care on 02/14/09. CBC was checked and it was normal. REVIEW OF SYSTEMS: Otherwise review of systems, negative. MEDICATIONS: Reviewed from [employer] today. ADR/ALLERGIES: NKDA. SOCIAL HISTORY: Patient is a nonsmoker. FAMILY HISTORY: No history of colon cancer in the family. OBJECTIVE: VS: BP: 124/72. P: 68. GENERAL: Patient is comfortable, no acute distress. CARDIOVASCULAR SYSTEM: S1 and S2 regular. LUNGS: Clear to auscultation bilaterally. ABDOMEN: Soft, nondistended, nontender. Positive bowel sounds. ASSESSMENT: Hematochezia. PLAN: Patient's CBC on 02/14 has been normal. Since he continues to have blood in the stool, we are going to proceed with a flexible sigmoidoscopy for further evaluation. SS:[id number] C: 02/26/09 14:23 CONFIRM #: [id number] RITY INTERN documented in this encounter Plan of Treatment Not on filedocumented as of this encounter Visit Diagnoses Not on filedocumented in this encounter Care Teams Sand Drier Relationship Specialty Start Date End Date Robin Duncan MD PCP - General 06/03/10 10/17/12 [address] [address] [address] documented as of this encounter
--- OUTSIDE RECORDS SUMMARY | 2021-12-18 12:09 | XMS_ITS | Encounter Summary ---
:1980 Author Organization [facility] Address [address] [facility] [place] [address] Care Team Providers Name Role Phone Robin Duncan MD Primary Care Provider Encounter Details Date Type Department Care Team Description 12/14/2007 Office Visit [facility] [place] [address] [place] [address] [place] [address] [phone] (Wo rk) Social History Tobacco Use Types [...] 0746 Note Time: 12/14/07 0001 Status: Signed Director Of Player Personnel: Robin Duncan MD (Physician) NAME: LORA STEWART MR#: [id number] ACCT: [id number] VISIT: [id number] DICTATING CLINICIAN: Robin Duncan MD CONFIRM #: [id number] LOC: 502 CLINIC PROGRESS NOTE DATE OF [...] if he has further questions or concerns. [id number] C: 12/15/07 09:43 CONFIRM #: [id number] documented in this encounter Plan of Treatment Not on filedocumented as of this encounter Visit Diagnoses Not on filedocumented in this encounter Care Teams Hand Mixer Relationship Specialty Start Date End Date Robin Duncan MD PCP - General 06/03/10 10/17/12 [address] [address] [address] documented as of this encounter
--- OUTSIDE RECORDS SUMMARY | 2021-12-18 12:09 | XMS_ITS | Encounter Summary ---
:1980 Author Organization [facility] Address [address] [place] [address] Care Team Providers Name Role Phone Robin Duncan MD Primary Care Provider Encounter Details Date Type Department Care Team Description 10/24/2008 PN Conversion Only [facility] [address] [place] [address] Social History Tobacco Use Types Packs/Day Years Used Date Smoking Tobacco: Never Alcohol Use Standard Drinks/Week Comments Not Asked 0 (1 standard drink = 0.6 oz pure alcoho l) Sex Assigned at Date Recorded Not on file documented as of this encounter Plan of Treatment Not on filedocumented as of this encounter Visit Diagnoses Not on filedocumented in this encounter Care Teams Metal Sprayer Relationship Specialty Start Date End Date Robin Duncan MD PCP - General 06/03/10 10/17/12 [address] [place] [place] [address] documented as of this encounter
--- OUTSIDE RECORDS SUMMARY | 2021-12-18 12:09 | XMS_ITS | Encounter Summary ---
:1980 Author Organization [facility] Address [address] [place] [address] Care Team Providers Name Role Phone Robin Duncan MD Primary Care Provider Encounter Details Date Type Department Care Team Description 05/24/2008 PN Conversion Only [place] CONVERSRamon Bl[place], [address] [address] [place] [address] [address] [place] [address] Social History Tobacco Use Types Packs/Day Years [...] Rapid Strep Follow up Culture ? Collected: ??[id number] ??[id number] Source: Throat ?Processed: ??[id number] ??1743 Final Report ------ ?[id number] ??1330 No beta hemolytic Strep group A isolated . Specimen (Source) Anatomical Collection Method Collection Time Re ceived Time Location / / Volume Laterality 05/24/2008 5:31 PM CDT Ramon Cedillo MD LAB_1 Performing Organization Address City/State/ZIP Code Phon e Number HP CONVERSION documented in this encounter Visit Diagnoses Not on filedocumented in this encounter Care Teams County Historian Relationship Specialty Start Date End Date Robin Duncan MD PCP - General 06/03/10 10/17/12 [address] [address] [address]35817 documented as of this encounter
--- OUTSIDE RECORDS SUMMARY | 2021-12-18 12:09 | XMS_ITS | Encounter Summary ---
:1980 Author Organization [employer] Address [address] [place] [address] Care Team Providers Name Role Phone Robin Duncan MD Primary Care Provider Encounter Details Date Type Department Care Team Description 10/24/2008 Office Visit [facility] [address] Haris Cameron, Becca ARMSTRONG [address] [place] [address] [place], [place] [address] (Wo rk) Social History Tobacco Use Types [...] 1547 Note Time: 10/24/08 0001 Status: Signed Regulatory Leader: Kennedy Cameron MD (Physician) NAME: LORA STEWART MR#: [id number] ACCT: [id number] VISIT: [id number] DICTATING CLINICIAN: Camilo CAMERON MD CONFIRM #: [id number] LOC: [address] [place] [address] OCCUPATIONAL MEDICINE REPORT DATE OF VISIT: 10/24/2008 COMPANY NAME: [employer] DATE OF INJURY: 10/24/08. IS [...] IMPROVEMENT: UNDETERMINED. PERMANENT PARTIAL DISABILITY RATING: UNDETERMINED. [id number] C: 10/24/08 17:54 CONFIRM #: [id number] documented in this encounter Plan of Treatment [...] on filedocumented in this encounter Care Teams Custom Tailor Apprentice Relationship Specialty Start Date End Date Robin Duncan MD PCP - General 06/03/10 10/17/12 [address] [address] 8[address]697 documented as of this encounter
--- OUTSIDE RECORDS SUMMARY | 2021-12-18 12:09 | XMS_ITS | Encounter Summary ---
:1980 Author Organization [facility] Address [address] [place] [address] Care Team Providers Name Role Phone Robin Duncan MD Primary Care Provider Encounter Details Date Type Department Care Team Description 01/11/2008 PN Conversion Only [place] Avis Breen [address] [facility] [place] [address] [place], [place] [address] (Wo rk) Social History Tobacco Use Types [...] PM Result s for this DIRECT LDL(IF INFANT BABYSITTER procedure are in NEEDED) the results section. COMPLETE BLOOD Routine 01/11/2008 5:11 PM Results for this COUNT-W/DIFF INFANT BABYSITTER procedure are i n the results section. AST Routine 01/11/2008 5:11 PM Results f or this INFANT BABYSITTER procedure are i n the results section. documented in this encounter Results Complete Blood Count-W/Diff (01/11/2008 5:11 PM INFANT BABYSITTER) [facility] Method Time Signature White Blood Cell 8.5 [...] - HP CONVERSION Hemoglobin Conc 36.5 gm/dL [place] RDW 11.9 11.0 - HP CONVERSION 15.0 [...] / / Volume Laterality 01/11/2008 5:11 PM INFANT BABYSITTER Avis Marlow MD LAB_1 Performing Organization Address City/State/ZIP Code Phon e Number HP CONVERSION AST (01/11/2008 5:11 PM INFANT BABYSITTER) [place] Method Time Signature Aspartate 22 0 - 45 HP CONVERSION Aminotransferase U/L Specimen (Source) Anatomical Collection Method Collection Time Re ceived Time Location / / Volume Laterality 01/11/2008 5:11 PM INFANT BABYSITTER Avis Marlow MD LAB_1 Performing Organization Address City/State/ZIP Code Phon e Number HP CONVERSION Lipid Panel and Direct LDL(If Needed) (01/11/2008 5:11 PM INFANT BABYSITTER) [facility] Method Time Signature Length Of Fast 12.0 [...] / / Volume Laterality 01/11/2008 5:11 PM INFANT BABYSITTER Avis Marlow MD LAB_1 Performing Organization Address City/State/ZIP Code Phon e Number HP CONVERSION documented in this encounter Visit Diagnoses Not on filedocumented in this encounter Care Teams Checker Stocker Relationship Specialty Start Date End Date Robin Duncan MD PCP - General 06/03/10 10/17/[address] [place] [address] documented as of this encounter
--- OUTSIDE RECORDS SUMMARY | 2021-12-18 12:09 | XMS_ITS | Encounter Summary ---
:1980 Author Organization [employer] Address [address] [place] [address] Care Team Providers Name Role Phone Robin Duncan MD Primary Care Provider Encounter Details Date Type Department Care Team Description 07/12/2008 Office Visit [facility] [place] [address] [place] [address] [place] [address] [phone] Social History Tobacco Use Types Packs/Day Years Used Date Smoking Tobacco: Never Alcohol Use Standard Drinks/Week Comments Not Asked 0 (1 standard drink = 0.6 oz pure alcoho l) Sex Assigned at Date Recorded Not on file documented as of this encounter Last Filed Vital Signs Vital Sign Reading Time Taken Comments Blood Pressure 109/69 07/12/2008 8:52 AM CDT Pulse 102 07/12/2008 8:52 AM CDT Temperature 36.6 ??C (97.9 ??F) 07/12/2008 8:52 AM CDT C: 36 .6 C Respiratory Rate 16 07/12/2008 8:52 AM CDT Oxygen Saturation - - Inhaled Oxygen Concentration - - Weight - - Height - - Body Mass Index - - documented in this encounter Progress Notes Perico Portillo MD - 07/12/2008 12:01 AM CDT Progress Notes signed by Perico Portillo MD at 08/17/08 6479 Author: Perico Portillo MD Service: (none) Author Type: Physician Filed: 06/22/10 1311 Note Time: 07/12/08 0001 Status: Signed Chief Radiologic Technologist: Perico Portillo MD (Physician) NAME: LORA STEWART MR#: [id number] ACCT: [id number] VISIT: [id number] DICTATING CLINICIAN: Perico Portillo MD CONFIRM #: [id number] LOC: 520 CLINIC PROGRESS NOTE DATE OF VISIT: 07/12/2008 SUBJECTIVE: 28-year-old complains of significant discomfort from sinus pressure pain and congestion. Eyes feeling pressure and pain. His ears are hurting. 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 Has remained dizzy and is aware that he may have seasonal allergies. However he is not sure what he is allergic to. The spring and fall seem to be his emphasis on symptoms. He has been exposed also to his daughter who has been ill with URIs. The patient denies smoking. OBJECTIVE: VS: BP: 109/69. T: 97. P: 100. R: 16. GENERAL: The patient is alert, oriented, looks uncomfortable with sinus pressure, pain. EENT: Eyes: His conjunctivae are clear. Ears: Tympanic membranes are both red and retracted and completely distorted. Nose: Nasal mucosa are very inflamed and congested although most of the drainage appears clear. Oropharynx with some drainage. No inflammatory changes. Tonsils not enlarged. NECK: Supple without enlarged nodes. LUNGS: Lung stewart are clear. CARDIOVASCULAR: Regular rate. ABDOMEN: Soft, nontender. SKIN: Warm and dry without rash. ASSESSMENT: 1. Allergic rhinitis. 2. Bilateral otitis media. PLAN: Antihistamine treatment, Nora-D 60 mg b.i.d. Antibiotic coverage for otitis, amoxicillin 500 mg t.i.d. TEL:[id number] C: 07/12/08 18:27 CONFIRM #: [id number] documented in this encounter Plan of Treatment Not on filedocumented as of this encounter Visit Diagnoses Not on filedocumented in this encounter Care Teams Pipe Fitter Supervisor Relationship Specialty Start Date End Date Robin Duncan MD PCP - General 06/03/10 10/17/[address] [place] [address] documented as of this encounter
--- OUTSIDE RECORDS SUMMARY | 2021-12-18 12:09 | XMS_ITS | Encounter Summary ---
:1980 Author Organization [facility] Address [address] [facility] [place] [address] Care Team Providers Name Role Phone Robin Duncan MD Primary Care Provider Encounter Details Date Type Department Care Team Description 08/21/2008 PN Conversion Only [facility] CONVERSION Social History Tobacco Use Types Packs/Day Years Used Date Smoking Tobacco: Never Alcohol Use Standard Drinks/Week Comments Not Asked 0 (1 standard drink = 0.6 oz pure alcoho l) Sex Assigned at Date Recorded Not on file documented as of this encounter Plan of Treatment Not on filedocumented as of this encounter Visit Diagnoses Not on filedocumented in this encounter Care Teams Bag Liner Relationship Specialty Start Date End Date Robin Duncan MD PCP - General 06/03/10 10/17/12 [address] [address] [place] [address] documented as of this encounter
--- OUTSIDE RECORDS SUMMARY | 2021-12-18 12:09 | XMS_ITS | Encounter Summary ---
:1980 Author Organization [employer] Address [address] [place] [address] Care Team Providers Name Role Phone Robin Duncan MD Primary Care Provider Encounter Details Date Type Department Care Team Description 01/14/2008 Office Visit [facility] MD [place] [address] [place], [place] [address] [place] [address] [phone] (Wo rk) Social History Tobacco Use Types [...] 0834 Note Time: 01/14/08 0001 Status: Signed Embedded Software Test Engineer: Avis Marlow MD (Physician) Subjective: He is [...] month of treatment after this month *SH~DNS~Custom1 CTOR PHYSICAL documented in this encounter Plan of Treatment Not on filedocumented as of this encounter Visit Diagnoses Not on filedocumented in this encounter Care Teams Lead Systems Developer Relationship Specialty Start Date End Date Robin Duncan MD PCP - General 06/03/10 10/17/12 [address] [place] [address] [place] [address] documented as of this encounter
--- OUTSIDE RECORDS SUMMARY | 2021-12-18 12:09 | XMS_ITS | Encounter Summary ---
:1980 Author Organization [facility] Address [address] [place] [address] Care Team Providers Name Role Phone Robin Duncan MD Primary Care Provider Reason for Visit Reason Comments Other Encounter Details Date Type Department Care Team Description 10/24/2008 Telephone [facility], Message Other [address] [place], [place] [address] Social History Tobacco Use Types Packs/Day Years Used Date Smoking Tobacco: Never Alcohol Use Standard Drinks/Week Comments Not Asked 0 (1 standard drink = 0.6 oz pure alcoho l) Sex Assigned at Date Recorded Not on file documented as of this encounter Progress Notes Center, Message - 10/24/2008 10:42 AM CDT Phone Note filed by [employer] at 06/21/10 1022 Author: [employer] Service: (none) Author Type: (none) Filed: 06/21/10 1022 Note Time: 10/24/08 1042 Status: Signed Heat Sealing Machine Operator: [employer] (Resource) Front Line Sx Call Caller Name/Relationship:pt Primary Retort Loader:anyone/[place] Symptom or request?He fell 8 ft from a latter and landed on butt cheek and injured tail bone. Needs advice Is appointment scheduled & when?n Meal Cooker:pt Best call back number:[phone] Is it OK to leave a confidential message on this voicemail?y *ECODE~PNSX2 Created on 24Oct2008 10:42am by ROSALIA WARNER M On [id number] 10:53am ROSLYN LACKEY wrote: CLINICIAN FOLLOW-UP: CHANDLER [...] Telephone Protocols--Back Pain. Call Complete. *SH~THOMP~BACKPAIN ~ H REPAIR PERSON documented in this encounter Plan of Treatment Not on filedocumented as of this encounter Visit Diagnoses Not on filedocumented in this encounter Care Teams Head Of Precision Targeting Relationship Specialty Start Date End Date Robin Duncan MD PCP - General 06/03/10 10/17/12 [address] [place] [address] [place] [address] documented as of this encounter
--- OUTSIDE RECORDS SUMMARY | 2021-12-18 12:09 | XMS_ITS | Encounter Summary ---
:1980 Author Organization [employer] Address [address] [place] [address] Care Team Providers Name Role Phone Robin Duncan MD Primary Care Provider Encounter Details Date Type Department Care Team Description 02/16/2008 Office Visit [facility] MD [place] [address] [place], [place] [address] [place] [address] [phone] (Wo rk) Social History Tobacco Use Types [...] 0922 Note Time: 02/16/08 0001 Status: Signed Swager Operator: Avis Marlow MD (Physician) Subjective: 27 year [...] mupiriocin oint bid for 10 days *SH~DNS~Custom1 ON BRUSHER ASSEMBLER documented in this encounter Plan of Treatment Not on filedocumented as of this encounter Visit Diagnoses Not on filedocumented in this encounter Care Teams Machinist Mechanic Relationship Specialty Start Date End Date Robin Duncan MD PCP - General 06/03/10 10/17/12 [address] [address] documented as of this encounter
--- OUTSIDE RECORDS SUMMARY | 2021-12-18 12:09 | XMS_ITS | Encounter Summary ---
:1980 Author Organization [facility] Address [address] [place] [address] Care Team Providers Name Role Phone Robin Duncan MD Primary Care Provider Encounter Details Date Type Department Care Team Description 12/14/2007 PN Conversion Only [place] [facility] [place] Robin Duncan, [address] [address] [facility] [address] [facility] [address] [place] [address] (Wo rk) Social History Tobacco [...] Transmitted Disease Probe (12/14/2007 4:54 PM CDT) [facility] Method Time Signature Sexually SEE TEXT HP CONVERSION Transmitted Disease Probe Comment: Patient: LORA STEWART R Sexually Trans Disease Probe ?Collected: ??[id number] ??[id number] Source: Clean Ca ?Processed: ??[id number] ??[id number] ? 1V Final Report ------ ?[id number] ??1310 No Chlamydia trachomatis detected by amp lified DNA assay No Neisseria gonorrhoeae detected by amp lified DNA assay NOTE: The first 15-60 mL of voided urine is the recommended urine specimen for this agus t system. The [employer] Amplified DNA assay is marjan red by [...] on filedocumented in this encounter Care Teams Nurse Prn Relationship Specialty Start Date End Date Robin Duncan MD PCP - General 06/03/10 10/17/12 [address] [place] [address] [place] [address] documented as of this encounter
--- OUTSIDE RECORDS SUMMARY | 2021-12-18 12:09 | XMS_ITS | Encounter Summary ---
:1980 Author Organization [facility] Address [address] [place] [address] Care Team Providers Name Role Phone Robin Duncan MD Primary Care Provider Encounter Details Date Type Department Care Team Description 08/16/2008 PN Conversion Only [place] [address] [place] [address] Social History Tobacco Use Types Packs/Day Years Used Date Smoking Tobacco: Never Alcohol Use Standard Drinks/Week Comments Not Asked 0 (1 standard drink = 0.6 oz pure alcoho l) Sex Assigned at Date Recorded Not on file documented as of this encounter Plan of Treatment Not on filedocumented as of this encounter Visit Diagnoses Not on filedocumented in this encounter Care Teams Sheet Turner Relationship Specialty Start Date End Date Robin Duncan MD PCP - General 06/03/10 10/17/[address] [place] [id number] documented as of this encounter
--- OUTSIDE RECORDS SUMMARY | 2021-12-18 12:09 | XMS_ITS | Encounter Summary ---
:1980 Author Organization [facility] Address [address] [place] [address] Care Team Providers Name Role Phone Robin Duncan MD Primary Care Provider Reason for Visit Reason Comments Other Encounter Details Date Type Department Care Team Description 12/08/2008 Telephone [facility], Message Other [address] [place] [address] Social History Tobacco Use Types Packs/Day Years Used Date Smoking Tobacco: Never Alcohol Use Standard Drinks/Week Comments Not Asked 0 (1 standard drink = 0.6 oz pure alcoho l) Sex Assigned at Date Recorded Not on file documented as of this encounter Progress Notes Center, Message - 12/08/2008 8:37 AM CDT Phone Note filed by [employer] at 06/21/10 6140 Author: [employer] Service: (none) Author Type: (none) Filed: 06/21/10 1372 Note Time: 12/08/08836 Status: Signed Heel Varnisher: [employer] (Resource) Front Line Sx Call Caller Name/Relationship:Augustus-tony Primary Dish Room Worker:n/a Symptom or request?The patient is requesting to speak to a nurse about his flu symptoms and if he could give them to his daughter. Is appointment scheduled & when?no Factory Manager:Augustus Haider call back number:[phone] Is it OK to leave a confidential [...] Adult Telephone Protocols--Headache. Call Complete. *SH~THOMP~HEADACHE ~ LE ATTACHER documented in this encounter Plan of Treatment Not on filedocumented as of this encounter Visit Diagnoses Not on filedocumented in this encounter Care Teams Dish Person Relationship Specialty Start Date End Date Robin Duncan MD PCP - General 06/03/10 10/17/[address] [place] [address] documented as of this encounter
--- OUTSIDE RECORDS SUMMARY | 2021-12-18 12:09 | XMS_ITS | Encounter Summary ---
:1980 Author Organization [employer] Address [address] [place] [address] Care Team Providers Name Role Phone Robin Duncan MD Primary Care Provider Encounter Details Date Type Department Care Team Description 12/15/2007 PN Conversion Only [place] Avis Breen [address] [facility] [place] [place] [address] [place], [place] [address] (Wo rk) Social History Tobacco Use Types [...] Direct LDL(If Needed) (12/15/2007 5:11 PM CDT) [facility] gist Method Time Signature Length Of Fast [...] on filedocumented in this encounter Care Teams Ocean Clam Boat Captain Relationship Specialty Start Date End Date Robin Duncan MD PCP - General 06/03/10 10/17/[address] [place] [address] documented as of this encounter
--- OUTSIDE RECORDS SUMMARY | 2021-12-18 12:09 | XMS_ITS | Encounter Summary ---
:1980 Author Organization [facility] Address [address] [place] [address] Care Team Providers Name Role Phone Robin Duncan MD Primary Care Provider Encounter Details Date Type Department Care Team Description 02/14/2009 Office Visit [facility] Efrain Verdugo PA-C [address] [place] [address] [place] [address] [phone] (Wo rk) Social History Tobacco Use Types Packs/Day Years Used Date Smoking Tobacco: Never Alcohol Use Standard Drinks/Week Comments Not Asked 0 (1 standard drink = 0.6 oz pure alcoho l) Sex Assigned at Date Recorded Not on file documented as of this encounter Last Filed Vital Signs Vital Sign Reading Time Taken Comments Blood Pressure 130/75 02/14/2009 5:51 PM LIGHTING ADVISER Pulse 70 02/14/2009 5:51 PM LIGHTING ADVISER Temperature 36.6 ??C (97.9 ??F) 02/14/2009 5:51 PM LIGHTING ADVISER C: 36 .6 C Respiratory Rate 16 02/14/2009 5:51 PM LIGHTING ADVISER Oxygen Saturation - - Inhaled Oxygen Concentration - - Weight - - Height - - Body Mass Index - - documented in this encounter Progress Notes Efrain Verdugo PA-C - 02/14/2009 12:01 AM CST Progress Notes signed by Efrain Verdugo PA-C at 02/14/09 1911 Author: Efrain Verdugo PA-C Service: (none) Author Type: Physician General Production Manager Filed: 06/22/10 1844 Note Time: 02/14/09 0001 Status: Signed Plasterer Apprentice: Efrain Verdugo PA-C (Resource) SUBJECTIVE: Augustus is [...] sweats no weight loss. 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 *SH~DNS~SOAP TING ADVISER documented in this encounter Plan of Treatment Not on filedocumented as of this encounter Visit Diagnoses Not on filedocumented in this encounter Care Teams Bushler Relationship Specialty Start Date End Date Robin Duncan MD PCP - General 06/03/10 10/17/12 [address] [address] [place] [address] documented as of this encounter
--- OUTSIDE RECORDS SUMMARY | 2021-12-18 12:09 | XMS_ITS | Encounter Summary ---
:1980 Author Organization [facility] Address [address] [place] [address] Care Team Providers Name Role Phone Robin Duncan MD Primary Care Provider Encounter Details Date Type Department Care Team Description 03/21/2008 PN Conversion Only [place] [facility] Ally Iglesias, [address] [place] [address] [address] [facility] [address] [place] [address] (Wo rk) Social History Tobacco [...] PM Result s for this DIRECT LDL(IF CAR REPAIRER procedure are in NEEDED) the results section. COMPLETE BLOOD Routine 03/21/2008 5:10 PM Results for this COUNT-W/DIFF CAR REPAIRER procedure are i n the results section. AST Routine 03/21/2008 5:10 PM Results f or this CAR REPAIRER procedure are i n the results section. documented in this encounter Results Complete Blood Count-W/Diff (03/21/2008 5:10 PM CAR REPAIRER) [facility] Method Time Signature White Blood Cell [...] - HP CONVERSION Hemoglobin Conc 36.5 gm/dL [place] RDW 12.1 11.0 - HP CONVERSION 15.0 [...] / / Volume Laterality 03/21/2008 5:10 PM CAR REPAIRER Ally Iglesias MD LAB_1 Performing Organization Address City/State/ZIP Code Phon e Number HP CONVERSION AST (03/21/2008 5:10 PM CAR REPAIRER) [facility] Method Time Signature Aspartate 24 0 - 45 HP CONVERSION Aminotransferase U/L Specimen (Source) Anatomical Collection Method Collection Time Re ceived Time Location / / Volume Laterality 03/21/2008 5:10 PM CAR REPAIRER Ally Iglesias MD LAB_1 Performing Organization Address City/State/ZIP Code Phon e Number HP CONVERSION Lipid Panel and Direct LDL(If Needed) (03/21/2008 5:10 PM CAR REPAIRER) [facility] Method Time Signature Length Of Fast 12.0 [...] / / Volume Laterality 03/21/2008 5:10 PM CAR REPAIRER Ally Iglesias MD LAB_1 Performing Organization Address City/State/ZIP Code Phon e Number HP CONVERSION documented in this encounter Visit Diagnoses Not on filedocumented in this encounter Care Teams Ecosystem Ecology Professor Relationship Specialty Start Date End Date Robin Duncan MD PCP - General 06/03/10 10/17/[address] [place] [address] documented as of this encounter
--- OUTSIDE RECORDS SUMMARY | 2021-12-18 12:09 | XMS_ITS | Encounter Summary ---
:1980 Author Organization [employer] Address [address] [place] [address] Care Team Providers Name Role Phone Robin Duncan MD Primary Care Provider Encounter Details Date Type Department Care Team Description 08/14/2008 Office Visit [facility] [place] [address] [place] [address] [place], [place] [id number] (Wo rk) Social History Tobacco Use Types [...] 1401 Note Time: 08/14/08 0001 Status: Signed Chief Clinical Dietitian: Erick Mead MD (Physician) NAME: LORA STEWART MR#: [id number] ACCT: [id number] VISIT: [id number] DICTATING CLINICIAN: ERICK MEAD MD CONFIRM #: [id number] LOC: 520 CLINIC PROGRESS NOTE DATE OF [...] with signs of infection or pain control. BECKY:[id number] C: 08/15/08 10:15 CONFIRM #: [id number] documented in this encounter Plan of Treatment [...] proximal phalanx, with mild subcortical cystic changes. [id number]/dkd Dictating EDUAR ARGUELLES RADIOLOGIST Procedure Note Eduar Gutierrez MD - 05/07/2016 There is acute nondisplaced fracture in the tuft of the distal phalanx. Small old fracture fragment see n at the base of the proximal phalanx, with mild subcortical cystic changes. 939120/dkd Dictating EDUAR ARGUELLES RADIOLOGIST Erick Mead MD RAD GD documented in this encounter Visit Diagnoses Not on filedocumented in this encounter Care Teams Electronic Equipment Repairer Relationship Specialty Start Date End Date Robin Duncan MD PCP - General 06/03/10 10/17/12 [address] [place] [address] documented as of this encounter
--- OUTSIDE RECORDS SUMMARY | 2021-12-18 12:09 | XMS_ITS | Encounter Summary ---
:1980 Author Organization [facility] Address [address] [place] [address] Care Team Providers Name Role Phone Robin Duncan MD Primary Care Provider Encounter Details Date Type Department Care Team Description 05/24/2008 Office Visit [facility] [place] [address] [place] [address] [place] [address] [phone] Social History Tobacco Use Types Packs/Day Years [...] 1152 Note Time: 05/24/08 0001 Status: Signed Black Topper: Ramon Cedillo MD (Physician) NAME: LORA STEWART MR#: [id number] ACCT: [id number] VISIT: [id number] DICTATING CLINICIAN: Ramon Cedillo MD CONFIRM #: [id number] LOC: 520 CLINIC PROGRESS NOTE DATE OF [...] not improving over the next week recheck. [id number]:[id number] C: 05/25/08 08:36 CONFIRM #: [id number] documented in this encounter Plan of Treatment Not on filedocumented as of this encounter Visit Diagnoses Not on filedocumented in this encounter Care Teams Community Leader Relationship Specialty Start Date End Date Robin Duncan MD PCP - General 06/03/10 10/17/[address] [place] [address] documented as of this encounter
--- OUTSIDE RECORDS SUMMARY | 2021-12-18 12:09 | XMS_ITS | Encounter Summary ---
:1980 Author Organization [facility] Address [address] [place] [address] Care Team Providers Name Role Phone Robin Duncan MD Primary Care Provider Reason for Visit Reason Comments Other Encounter Details Date Type Department Care Team Description 02/14/2009 Telephone [facility] Robin Flores MD Other [address] [employer] [address] [place] [address] [place] [address] [phone] (Wo rk) Social History Tobacco Use Types Packs/Day Years Used Date Smoking Tobacco: Never Alcohol Use Standard Drinks/Week Comments Not Asked 0 (1 standard drink = 0.6 oz pure alcoho l) Sex Assigned at Date Recorded Not on file documented as of this encounter Progress Notes Center, Message - 02/14/2009 3:50 PM CST Phone Note filed by [employer] at 06/21/101935 Author: [employer] Service: (none) Author Type: (none) Filed: 06/21/101935 Note Time: 02/14/09 1550 Status: Signed Cigar Inspector: [employer] (Resource) Front Line Sx Call Caller Name/Relationship:hannah jimenez Primary Hand Miter Operator:orlando Symptom or request?pt is having some blood in stool, pt was seen for this on 01-02. Is appointment scheduled & when?no Rn Telemetry:pt Best call back number:[phone] Is it OK to leave a confidential [...] in electronic medical record. CARE ADVICE: Referenced [facility] Adult Guideline, Rectal Bleeding. Advised pt. to [...] Telephone Protocols--Rectal Bleeding. Call Complete. *JARED~TEOFILO~RECBLEED ~ CH LEAD documented in this encounter Plan of Treatment Not on filedocumented as of this encounter Visit Diagnoses Not on filedocumented in this encounter Care Teams Rouge Sifter Relationship Specialty Start Date End Date Robin Duncan MD PCP - General 06/03/10 10/17/12 [address] [address] [place] [address] documented as of this encounter
--- OUTSIDE RECORDS SUMMARY | 2021-12-18 12:10 | XMS_ITS | Encounter Summary ---
:1980 Author Organization [email or web address] Address [address] [place] [address] Care Team Providers Name Role Phone Robin Duncan MD Primary Care Provider Encounter Details Date Type Department Care Team Description 10/20/2007 PN Conversion Only [place] CONVERSAvis [place] [address] [facility] [place] [place] [address] [place], [place] [address] (Wo rk) Social History Tobacco Use Types [...] Complete Blood Count-W/Diff (10/20/2007 5:27 PM CDT) [facility] Method Time Signature White Blood Cell [...] - HP CONVERSION Hemoglobin Conc 36.5 gm/dL [place] RDW 11.9 11.0 - HP CONVERSION 15.0 [...] HP CONVERSION AST (10/20/2007 5:27 PM CDT) [facility] Method Time Signature Aspartate 24 0 - 45 HP CONVERSION Aminotransferase U/L Specimen (Source) Anatomical Collection Method Collection Time Re ceived Time Location / / Volume Laterality 10/20/2007 5:27 PM CDT Avis Marlow MD LAB_1 Performing Organization Address City/State/ZIP Code Phon e Number HP CONVERSION Lipid Panel and Direct LDL(If Needed) (10/20/2007 5:27 PM CDT) [facility] Method Time Signature Length Of Fast 12.0 [...] on filedocumented in this encounter Care Teams Consulting Actuary Relationship Specialty Start Date End Date Robin Duncan MD PCP - General 06/03/10 10/17/12 [address] [address] [place] [address] documented as of this encounter
--- OUTSIDE RECORDS SUMMARY | 2021-12-18 12:10 | XMS_ITS | Encounter Summary ---
:1980 Author Organization [facility] Address [address] [place] [address] Care Team Providers Name Role Phone Robin Duncan MD Primary Care Provider Reason for Visit Reason Comments Other Encounter Details Date Type Department Care Team Description 09/28/2007 Telephone [facility] Akhil Villarreal Other Clinic MD [place] [address] [place], [place] [address] [place] [address] [phone] (Wo rk) Social History Tobacco Use Types Packs/Day Years Used Date Smoking Tobacco: Never Alcohol Use Standard Drinks/Week Comments Not Asked 0 (1 standard drink = 0.6 oz pure alcoho l) Sex Assigned at Date Recorded Not on file documented as of this encounter Progress Notes Center, Message - 09/28/2007 11:46 AM CDT Phone Note filed by [employer] at 06/20/10 0159 Author: [employer] Service: (none) Author Type: (none) Filed: 06/20/109 Note Time: 09/28/07 1146 Status: Signed Groundskeeper: [employer] Front Line Sx Call Caller Name/Relationship:Augustus Primary Newspaper Editor Managing:Raji Symptom or request?Pt states he thinks he has having a reaction to the medication Dr iverson. He states he is having blurred vision really bad headache-migraine.Accutane Is appointment scheduled & when?no Dampener:Augustus Best call back number:[phone] Is it OK to leave a confidential [...] returning phone call please call patient at [phone] c vm yes On 30Sep2007 12:34pm RIVER [...] jo Acknowledged by RIVER VILLARREAL on 12:34pm OPERATOR documented in this encounter Plan of Treatment Not on filedocumented as of this encounter Visit Diagnoses Not on filedocumented in this encounter Care Teams It Corporate Recruiter Relationship Specialty Start Date End Date Robin Duncan MD PCP - General 06/03/10 10/17/12 [address] [place] [place] [address] documented as of this encounter
--- OUTSIDE RECORDS SUMMARY | 2021-12-18 12:10 | XMS_ITS | Encounter Summary ---
:[address] [address] [facility] Address [address] [place] [address] Care Team Providers Name Role Phone Robin Duncan MD Primary Care Provider Encounter Details Date Type Department Care Team Description 09/24/2007 PN Conversion Only [place] [facility] [place] Avis Marlow [address] [place] [address] [place], [place] [address] (Wo rk) Social History Tobacco Use Types [...] Complete Blood Count-W/Diff (09/24/2007 3:29 PM CDT) [facility] Method Time Signature White Blood Cell 7.6 [...] - HP CONVERSION Hemoglobin Conc 36.5 gm/dL [place] RDW 11.8 11.0 - HP CONVERSION 15.0 [...] Direct LDL(If Needed) (09/24/2007 3:29 PM CDT) [facility] Method Time Signature Length Of Fast 12.0 [...] HP CONVERSION AST (09/24/2007 3:29 PM CDT) [facility] Method Time Signature Aspartate 29 0 - 45 HP CONVERSION Aminotransferase U/L Specimen (Source) Anatomical Collection Method Collection Time Re ceived Time Location / / Volume Laterality 09/24/2007 3:29 PM CDT Avis Marlow MD LAB_1 Performing Organization Address City/State/ZIP Code Phon e Number HP CONVERSION documented in this encounter Visit Diagnoses Not on filedocumented in this encounter Care Teams Shake Table Operator Relationship Specialty Start Date End Date Robin Duncan MD PCP - General 06/03/10 10/17/[address] [place] [address] documented as of this encounter
--- OUTSIDE RECORDS SUMMARY | 2021-12-18 12:10 | XMS_ITS | Encounter Summary ---
:1980 Author Organization [employer] Address [address] [place] [address] Care Team Providers Name Role Phone Robin Duncan MD Primary Care Provider Encounter Details Date Type Department Care Team Description 10/22/2007 Office Visit [facility] Kristi Alfaro MD [facility] [address] [facility] [address] [place] [address] [place] [address] [phone] Social History Tobacco Use Types Packs/Day Years Used Date Smoking Tobacco: Never Alcohol Use Standard Drinks/Week Comments Not Asked 0 (1 standard drink = 0.6 oz pure alcoho l) Sex Assigned at Date Recorded Not on file documented as of this encounter Progress Notes Kristi Tapia MD - 10/22/2007 12:01 AM CDT Progress Notes signed by Kristi Tapia MD at 10/22/07 8991 Author: Kristi Tapia MD Service: (none) Author Type: (none) Filed: 06/22/10 0629 Note Time: 10/22/07 0001 Status: Signed Chain Hoist Operator: Kristi Tapia MD (Physician) Clinic Visit IMPRESSION: Acne on all sites improving CHIEF COMPLAINT: Acne SUBJECTIVE: Follow-up Visit Past History: Adverse Drug Reaction: Pt's Adverse Drug Reactions were reviewed, and updated today on the [facility]. Chronic Medications: reviewed and updated today on [...] on filedocumented in this encounter Care Teams Ell Teacher Relationship Specialty Start Date End Date Robin Duncan MD PCP - General 06/03/10 10/17/12 [address] [address] [address] documented as of this encounter
--- OUTSIDE RECORDS SUMMARY | 2021-12-18 12:10 | XMS_ITS | Encounter Summary ---
:1980 Author Organization [facility] Address [address] [place] [address] Care Team Providers Name Role Phone Robin Duncan MD Primary Care Provider Encounter Details Date Type Department Care Team Description 04/14/2007 PN Conversion Only SOLDER MAKING SUPERVISOR [address] [facility] Precious Joe, [address] [place], [place] [address] [place] [address] (Wo rk) Social History Tobacco Use Types [...] 9:13 PM Results for this ANTIGEN TEST LINING STITCHER procedure are i n the results section. BETA STREP FOLLOWUP Routine 04/14/2007 9:13 PM Re sults for this LINING STITCHER procedure are i n the results section. documented in this encounter Results Strep Group A Antigen Test (04/14/2007 9:13 PM LINING STITCHER) Analysis Performed At Patho logist Time Signature Strep Group A Negative Negative HP CONVERSION Antigen Test Comment: Culture to follow. Specimen (Source) Anatomical Collection Method Collection Time Re ceived Time Location / / Volume Laterality 04/14/2007 9:13 PM LINING STITCHER Precious Joe PA-C LAB_1 Performing Organization Address City/[facility]/ZIP Code Phon e Number HP CONVERSION (ABNORMAL) Beta Strep Followup (04/14/2007 9:13 PM LINING STITCHER) Analysis Performed At [facility] Time Signature Strep Screen SEE TEXT HP CONVERSION (A) Comment: Patient: LORA STEWART Rapid Strep Follow up Culture ? Collected: ??[id number] ??[id number] Source: Throat ?Processed: ??[id number] ??[id number] Final Report ------ ?[id number] ??[id number] Beta Strep Group A Present. ICSI Pharyngitis guideline recommends Penicillin V potassium (Pen VK) in nonal lergic patients. If < 50 lbs, 250 mg PenVK BID for 10 day s. >=50 lbs, 500 mg PenVK BID for 10 days. Specimen (Source) Anatomical Collection Method Collection Time Re ceived Time Location / / Volume Laterality 04/14/2007 9:13 PM LINING STITCHER Precious Joe PA-C LAB_1 Performing Organization Address City/[facility] Code Phon e Number HP CONVERSION documented in this encounter Visit Diagnoses Not on filedocumented in this encounter Care Teams Legal Internship Relationship Specialty Start Date End Date Robin Duncan MD PCP - General 06/03/10 10/17/12 [address] [facility] [address] [address] documented as of this encounter
--- OUTSIDE RECORDS SUMMARY | 2021-12-18 12:10 | XMS_ITS | Encounter Summary ---
:1980 Author Organization Formerly [facility] Address [address] [place] [address] Care Team Providers Name Role Phone Robin Duncan MD Primary Care Provider Encounter Details Date Type Department Care Team Description 11/18/2007 PN Conversion Only POTRERO CONVERSIO N Kristi Tapia, [address] [address] [address] [employer] [address] [place], [place] [address] (Wo rk) Social History Tobacco Use Types [...] encounter Results AST (11/18/2007 4:32 PM CDT) [facility] Method Time Signature Aspartate 27 0 - 45 HP CONVERSION Aminotransferase U/L Specimen (Source) Anatomical Collection Method Collection Time Re ceived Time Location / / Volume Laterality 11/18/2007 4:32 PM CDT Kristi Tapia MD LAB_1 Performing Organization Address City/State/ZIP Code Phon e Number HP CONVERSION (ABNORMAL) Lipid Panel and Direct LDL(If Needed) (11/18/2007 4:32 PM CDT) [facility] gist Method Time Signature Length Of Fast [...] on filedocumented in this encounter Care Teams Bolt Labeler Relationship Specialty Start Date End Date Robin Duncan MD PCP - General 06/03/10 10/17/12 [address] [place] [address] [address] documented as of this encounter
--- OUTSIDE RECORDS SUMMARY | 2021-12-18 12:10 | XMS_ITS | Encounter Summary ---
:1980 Author Organization [facility] Address [address] [facility] [place] [address] Care Team Providers Name Role Phone Robin Duncan MD Primary Care Provider Encounter Details Date Type Department Care Team Description 04/18/2007 [employer] Worker Only CONVERSION CONVERSION Madie Lowery PA-C [address] [place] [address] (Wo rk) Social History Tobacco [...] Ruby PA-C Service: (none) Author Type: Physician Adjunct Psychology Faculty Member Filed: 06/22/10 0102 Note Time: 04/18/07 0001 Status: Signed Nurse Practitioner Hospitalist: Madie Ruby PA-C (Physician Adjunct Psychology Faculty Member) Patient called Urgent Care reporting that he took Zpak as directed for diagnosis strep pharyngitis [id number]. His sore throat has not improved and [...] Adverse side affects of medications were reviewed. ETS ASSEMBLER documented in this encounter Plan of Treatment Not on filedocumented as of this encounter Visit Diagnoses Not on filedocumented in this encounter Care Teams Shredded Filler Cutter Operator Relationship Specialty Start Date End Date Robin Duncan MD PCP - General 06/03/10 10/17/12 [address] [place] [address] documented as of this encounter
--- OUTSIDE RECORDS SUMMARY | 2021-12-18 12:10 | XMS_ITS | Encounter Summary ---
:1980 Author Organization [employer] Address [address] [place] [address] Care Team Providers Name Role Phone Robin Duncan MD Primary Care Provider Reason for Visit Reason Comments Other Encounter Details Date Type Department Care Team Description 04/15/2007 Telephone [facility] 3850 Urgent Kayleen Rahman MD Other Care [address] [place] [address] [place], [place] [address] [phone] Social History Tobacco Use Types Packs/Day Years Used Date Smoking Tobacco: Never Alcohol Use Standard Drinks/Week Comments Not Asked 0 (1 standard drink = 0.6 oz pure alcoho l) Sex Assigned at Date Recorded Not on file documented as of this encounter Progress Notes River Quinones - 04/15/2007 12:02 PM CST Phone Note filed by River Quinones at 06/19/10 2550 Author: River Quinones Service: (none) Author Type: (none) Filed: 06/19/10 0732 Note Time: 04/15/07 1202 Status: Signed Auto Service Representative: Benedict Peter 04/15/07 1155 Called and spoke [...] QUINONES Acknowledged by KAYLEEN RAHMAN on 10:48am UTIVE ADMINISTRATIVE ASSISTANT documented in this encounter Plan of Treatment Not on filedocumented as of this encounter Visit Diagnoses Not on filedocumented in this encounter Care Teams Spud Sorter Relationship Specialty Start Date End Date Robin Duncan MD PCP - General 06/03/10 10/17/12 [address] [place] [address] documented as of this encounter
--- OUTSIDE RECORDS SUMMARY | 2021-12-18 12:10 | XMS_ITS | Encounter Summary ---
:1980 Author [facility] Address [address] [place] [address] Care Team Providers Name Role Phone Robin Duncan MD Primary Care Provider Encounter Details Date Type Department Care Team Description 03/04/2007 Office Visit [facility] 3850 Urgent Latonya Rhoades MD Care [address] [place] [address] [place], [place] [address] [phone] Social History Tobacco Use Types Packs/Day Years Used Date Smoking Tobacco: Never Alcohol Use Standard Drinks/Week Comments Not Asked 0 (1 standard drink = 0.6 oz pure alcoho l) Sex Assigned at Date Recorded Not on file documented as of this encounter Last Filed Vital Signs Vital Sign Reading Time Taken Comments Blood Pressure 87/62 03/04/2007 12:52 PM SPIRITUAL MINISTER Pulse 62 03/04/2007 12:52 PM SPIRITUAL MINISTER Temperature 36.3 ??C (97.3 ??F) 03/04/2007 12:52 PM SPIRITUAL MINISTER C: 3 6.3 C Respiratory Rate 12 03/04/2007 12:52 PM SPIRITUAL MINISTER Oxygen Saturation - - Inhaled Oxygen Concentration - - Weight - - Height - - Body Mass Index - - documented in this encounter Progress Notes Latonya Rhoades MD - 03/04/2007 12:01 AM CST Progress Notes signed by Latonya Rhoades MD at 04/05/07 0898 Author: Latonya Rhoades MD Service: (none) Author Type: Physician Filed: 06/22/10 0000 Note Time: 03/04/07 0001 Status: Signed Store Facility Technician: Latonya Rhoades MD (Physician) NAME: LORA STEWART MR#: [id number] ACCT: [id number] VISIT: [id number] DICTATING CLINICIAN: Latonya Rhoades MD JOB: [id number] LOC: 420 CLINIC PROGRESS NOTE DATE OF [...] PLAN: Treat symptomatically. Follow up is p.r.n. MERLYN:[id number] C: 03/04/07 21:03 DOCUMENT: [id number] ITUAL MINISTER documented in this encounter Plan of Treatment Not on filedocumented as of this encounter Procedures Procedure Name Priority Date/Time Associated Diagnosis Comme nts XR ANKLE LT 3 VIEWS Routine 03/04/2007 1:18 PM Re sults for this SPIRITUAL MINISTER procedure are i n the results section. documented in this encounter Results XR Ankle Lt 3 Views (03/04/2007 1:18 PM SPIRITUAL MINISTER) Anatomical Region Laterality Modality Lower Extremity, Ankle, Foot & Ankle Oth er Specimen (Source) Anatomical Location Collection Method / Collectio n Time Received Time / Laterality Volume Narrative 03/04/2007 1:18 PM SPIRITUAL MINISTER Findings: BN1 No radiographic evidence of bone or join t abnormality. Dictating KAYLEEN YUAN RADIOLOGIST Procedure Note Kayleen Abraham - 05/07/2016 Findings: BN1 No radiographic evidence of bone or join t abnormality. Dictating KAYLEEN YUAN RADIOLOGIST Latonya Rhoades MD RAD GD documented in this encounter Visit Diagnoses Not on filedocumented in this encounter Care Teams Superintendent Logging Relationship Specialty Start Date End Date Robin Duncan MD PCP - General 06/03/10 10/17/12 [address] [place] [address] [place] [address] documented as of this encounter
--- OUTSIDE RECORDS SUMMARY | 2021-12-18 12:10 | XMS_ITS | Encounter Summary ---
:1980 Author Organization [facility] Address [address] [place] [address] Care Team Providers Name Role Phone Robin Duncan MD Primary Care Provider Reason for Visit Reason Comments Other Encounter Details Date Type Department Care Team Description 10/22/2007 Telephone [facility], Message Other [address] [place], [place] [address] Social History Tobacco Use Types Packs/Day Years Used Date Smoking Tobacco: Never Alcohol Use Standard Drinks/Week Comments Not Asked 0 (1 standard drink = 0.6 oz pure alcoho l) Sex Assigned at Date Recorded Not on file documented as of this encounter Progress Notes Center, Message - 10/22/2007 2:26 PM CDT Phone Note filed by [employer] at 06/20/10 0400 Author: [employer] Service: (none) Author Type: (none) Filed: 06/20/100 Note Time: 10/22/071425 Status: Signed Bailer Tenders Supervisor: [employer] Front Line Sx Call Caller Name/Relationship:Augustus Ramirez Primary Garage Door Installer: Symptom or request?Pt had seen today and states he needs a pledge # in order for him to get his prescription filled for accutane Is appointment scheduled & when? Caser In:Augustus Haider call back number:[phone] Is it OK to leave a confidential message on this voicemail?yes *[id number] Created on 22Oct2007 2:26pm by ESTELLA MOFFETT R On 22Oct2007 4:51pm MAUREEN GASPAR wrote: Sallie CAMPBELL to call back. On 25Oct2007 4:34pm SALLIE ROJAS wrote: Accutane rx was picked up. ORNE AND AIR DELIVERY SPECIALIST documented in this encounter Plan of Treatment Not on filedocumented as of this encounter Visit Diagnoses Not on filedocumented in this encounter Care Teams Campaign Manager Relationship Specialty Start Date End Date Robin Duncan MD PCP - General 06/03/10 10/17/12 [address] [place] [address] [place] [address] documented as of this encounter
--- OUTSIDE RECORDS SUMMARY | 2021-12-18 12:10 | XMS_ITS | Encounter Summary ---
:1980 Author Organization [email or web address] Address [address] [place] [address] Care Team Providers Name Role Phone Robin Duncan MD Primary Care Provider Encounter Details Date Type Department Care Team Description 11/15/2007 PN Conversion Only [place] [address] [address] [place] [address] Social History Tobacco Use Types Packs/Day Years Used Date Smoking Tobacco: Never Alcohol Use Standard Drinks/Week Comments Not Asked 0 (1 standard drink = 0.6 oz pure alcoho l) Sex Assigned at Date Recorded Not on file documented as of this encounter Plan of Treatment Not on filedocumented as of this encounter Visit Diagnoses Not on filedocumented in this encounter Care Teams Churn Operator Margarine Relationship Specialty Start Date End Date Robin Duncan MD PCP - General 06/03/10 10/17/[address] [place] [address] documented as of this encounter
--- OUTSIDE RECORDS SUMMARY | 2021-12-18 12:10 | XMS_ITS | Encounter Summary ---
:1980 Author Organization [facility] Address [address] [facility] [place] [address] Care Team Providers Name Role Phone Robin Duncan MD Primary Care Provider Encounter Details Date Type Department Care Team Description 12/04/2007 Nursing Visit [facility] 3850 [facility] Heriberto Jurado MD Medicine [address] [address] [place] [address] Social History Tobacco Use Types [...] on filedocumented in this encounter Care Teams Agricultural Chemist Relationship Specialty Start Date End Date Robin Duncan MD PCP - General 06/03/10 10/17/12 [address] [place] [address] [place] [id number] documented as of this encounter
--- OUTSIDE RECORDS SUMMARY | 2021-12-18 12:10 | XMS_ITS | Encounter Summary ---
:1980 Author Organization [employer] Address [address] [place] [address] Care Team Providers Name Role Phone Robin Duncan MD Primary Care Provider Encounter Details Date Type Department Care Team Description 11/19/2007 Office Visit [facility] [place] [address] [place], [place] [address] [place] [address] [phone] (Wo rk) Social History Tobacco Use Types [...] 0708 Note Time: 11/19/07 0001 Status: Signed Account Collector: Avis Marlow MD (Physician) Subjective: This is [...] on filedocumented in this encounter Care Teams Tubing Tester Relationship Specialty Start Date End Date Robin Duncan MD PCP - General 06/03/10 10/17/12 [address] [place] [address] [address] documented as of this encounter
--- OUTSIDE RECORDS SUMMARY | 2021-12-18 12:10 | XMS_ITS | Encounter Summary ---
:1980 Author Organization [employer] Address [address] [place] [address] Care Team Providers Name Role Phone Robin Duncan MD Primary Care Provider Reason for Visit Reason Comments Other Encounter Details Date Type Department Care Team Description 03/15/2007 Telephone [facility] 3850 [facility] Emma Diane RN Other 3850 [facility] [place] [address] Social History Tobacco Use Types Packs/Day Years [...] 1222 Note Time: 03/15/07 1410 Status: Signed Floor Clerk: Emma Diane RN (Registered Nurse) Per Dr Natalia pedraza for pt to be seen in ortho for his left ankle injury. Transferred him to ortho to schedule appt that works with his schedule. Created on 15Mar2007 2:10pm by EMMA PARIS BER APPRENTICE documented in this encounter Plan of Treatment Not on filedocumented as of this encounter Visit Diagnoses Not on filedocumented in this encounter Care Teams Filler Picker Relationship Specialty Start Date End Date Robin Duncan MD PCP - General 06/03/10 10/17/12 [address] [place] [address] [address] documented as of this encounter
--- OUTSIDE RECORDS SUMMARY | 2021-12-18 12:10 | XMS_ITS | Encounter Summary ---
:1980 Author Organization [employer] Address [address] [place] [address] Care Team Providers Name Role Phone Robin Duncan MD Primary Care Provider Encounter Details Date Type Department Care Team Description 09/24/2007 Office Visit [facility] David Munoz MD [facility] 6500 [facility] 5320 [facility] [address] [place], [place] [address] [place], [place] [phone] (Wo rk) Social History Tobacco Use [...] signed by Kennedy Munoz MD at 09/24/07 131 Author: Kennedy Munoz MD Service: (none) Author Type: (none) Filed: 06/22/10 0549 Note Time: 09/24/07 0001 Status: Signed Station Baggage Porter: Kennedy Munoz MD (Physician) SUBJECTIVE: 27-year-old male [...] on filedocumented in this encounter Care Teams Household Personal Assistant Relationship Specialty Start Date End Date Robin Duncan MD PCP - General 06/03/10 10/17/[address] [place] [address] documented as of this encounter
--- OUTSIDE RECORDS SUMMARY | 2021-12-18 12:10 | XMS_ITS | Encounter Summary ---
:1980 Author Organization [email or web address] Address [address] [place] [address] Care Team Providers Name Role Phone Robin Duncan MD Primary Care Provider Encounter Details Date Type Department Care Team Description 03/04/2007 PN Conversion Only CATERING DIRECTOR 3850 CONV [address] [place] [address] Social History Tobacco Use Types Packs/Day Years Used Date Smoking Tobacco: Never Alcohol Use Standard Drinks/Week Comments Not Asked 0 (1 standard drink = 0.6 oz pure alcoho l) Sex Assigned at Date Recorded Not on file documented as of this encounter Plan of Treatment Not on filedocumented as of this encounter Visit Diagnoses Not on filedocumented in this encounter Care Teams Business Advisor Relationship Specialty Start Date End Date Robin Duncan MD PCP - General 06/03/10 10/17/12 [address] [place] [address] [place] [address] documented as of this encounter
--- OUTSIDE RECORDS SUMMARY | 2021-12-18 12:10 | XMS_ITS | Encounter Summary ---
:1980 Author Organization [employer] Address [address] [place] [address] Care Team Providers Name Role Phone Robin Duncan MD Primary Care Provider Encounter Details Date Type Department Care Team Description 04/14/2007 Office Visit [facility] 3850 Urgent [place] Joe, Care TANYA [address] [place] [address] [place], [place] [address] [place] [address] [phone] (Wo rk) Social History Tobacco Use Types Packs/Day Years Used Date Smoking Tobacco: Never Alcohol Use Standard Drinks/Week Comments Not Asked 0 (1 standard drink = 0.6 oz pure alcoho l) Sex Assigned at Date Recorded Not on file documented as of this encounter Last Filed Vital Signs Vital Sign Reading Time Taken Comments Blood Pressure 126/89 04/14/2007 7:07 PM YARD BRAKEMAN Pulse 90 04/14/2007 7:07 PM YARD BRAKEMAN Temperature 38.2 ??C (100.8 ??F) 04/14/2007 7:07 PM YARD BRAKEMAN C: 3 8.2 C Respiratory Rate 16 04/14/2007 7:07 PM YARD BRAKEMAN Oxygen Saturation - - Inhaled Oxygen Concentration - - Weight - - Height - - Body Mass Index - - documented in this encounter Progress Notes Precious Joe PA-C - 04/14/2007 12:01 AM CST Progress Notes signed by Precious Joe PA-C at 04/20/07 1538 Author: Precious Joe PA-C Service: (none) Author Type: Physician Hood Maker Filed: 06/22/10 0057 Note Time: 04/14/072012 Status: Signed Motor Home Electrical Foreman: Precious Joe PA-C (Physician Hood Maker) NAME: LORA STEWART MR#: [id number] ACCT: [id number] VISIT: [id number] DICTATING CLINICIAN: PRECIOUS JOE PA-C JOB: [id number] LOC: 420 CLINIC PROGRESS NOTE DATE OF [...] or if worsens, he should be reevaluated. ETC:[id number] C: 04/15/07 19:15 DOCUMENT: [id number] BRAKEMAN documented in this encounter Plan of Treatment Not on filedocumented as of this encounter Visit Diagnoses Not on filedocumented in this encounter Care Teams Lockstitch Cup Setter Relationship Specialty Start Date End Date Robin Duncan MD PCP - General 06/03/10 10/17/[address] [place] [address] documented as of this encounter
--- OUTSIDE RECORDS SUMMARY | 2021-12-18 12:10 | XMS_ITS | Encounter Summary ---
:1980 Author Organization [employer] Address [address] [facility] [place] [address] Care Team Providers Name Role Phone Robin Duncan MD Primary Care Provider Encounter Details Date Type Department Care Team Description 12/02/2007 Office Visit [facility] Mercedes Verdugo PA-C [address] [place] [address] [place] [address] [phone] (Wo rk) Social History Tobacco Use Types Packs/Day Years Used Date Smoking Tobacco: Never Alcohol Use Standard Drinks/Week Comments Not Asked 0 (1 standard drink = 0.6 oz pure alcoho l) Sex Assigned at Date Recorded Not on file documented as of this encounter Last Filed Vital Signs Vital Sign Reading Time Taken Comments Blood Pressure 122/74 12/02/2007 5:46 PM CDT Pulse 75 12/02/2007 5:46 PM CDT Temperature - - Respiratory Rate 16 12/02/2007 5:46 PM CDT Oxygen Saturation 100% 12/02/2007 5:46 PM CDT Inhaled Oxygen Concentration - - Weight - - Height - - Body Mass Index - - documented in this encounter Progress Notes Mercedes Verdugo PA-C - 12/02/2007 12:01 AM CDT Progress Notes signed by Mercedes Verdugo PA-C at 12/17/07 0827 Author: Mercedes Verdugo PA-C Service: (none) Author Type: Physician Lozenge Maker Filed: 06/22/10 0729 Note Time: 12/02/07 0001 Status: Signed Blood Bank Manager: Mercedes Verdugo PA-C (Physician Lozenge Maker) NAME: LORA STEWART MR#: [id number] ACCT: [id number] VISIT: [id number] DICTATING CLINICIAN: MERCEDES VERDUGO PA-C CONFIRM #: [id number] LOC: 520 CLINIC PROGRESS NOTE DATE OF VISIT: 12/02/2007 SUBJECTIVE: A 27-year-old male presented in urgent care for evaluation of URI symptoms for 5 days. He is a smoker. Nasal congestion, headache, facial pain, increasing cough, productive cough, not sleeping very well. No recent plane trips, no one else sick at home. Expecting the of his 1st child here in the next couple of weeks. Currently on Accutane. 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 MEDICATIONS: Accutane. ADR/ALLERGIES: NKDA. PAST MEDICAL HISTORY: Negative for asthma or allergies, but does have acne that he has been treated for. OBJECTIVE: VS: BP: 122/74. T: 98. P: 75. R: 16. O2 sat: 100%. GENERAL: NAD. Examination of the skin reveals several dry, peeling areas. HEENT: Head normocephalic. Jgky-mk-scqazod tenderness over the frontal sinuses. No obvious swelling. Eyes sclerae white. Conjunctivae pink. Cornea and lens are clear. Red reflux present. Ears: TMs intact with a bit of clear fluid. Nose shows some clear rhinorrhea but no areas of bleeding. Mouth shows post nasal drip. NECK: Supple. LUNGS: Rhonchi noted throughout the lung exam with some mild expiratory wheezing. No rales. ASSESSMENT: 1. Bronchitis. 2. Tobacco abuse. PLAN: Discussed tobacco cessation. Albuterol nebulizer given in the office. The patient stated it made him feel jittery but did not feel like it helped his lungs. Still some wheezing present post neb. Recommended nasal saline lavage several times daily. Hot shower at bedtime. Decrease dairy products. Afrin nasal spray 1 to 2 sprays each nostril. Prescription also given for Zithromax. We will have him hold off for the next 4 to 5 days. If fever develops or symptoms persist or worsen, will take the medicine. Otherwise, he will discard it. RTC phiram TJL:[id number] C: 12/03/07 09:20 CONFIRM #: [id number] documented in this encounter Plan of Treatment Not on filedocumented as of this encounter Visit Diagnoses Not on filedocumented in this encounter Care Teams Fancy Stitcher Relationship Specialty Start Date End Date Robin Duncan MD PCP - General 06/03/10 10/17/[address] [place] [address] documented as of this encounter
--- OUTSIDE RECORDS SUMMARY | 2021-12-18 12:11 | XMS_ITS | Encounter Summary ---
:1980 Author Organization [employer] Address [address] [facility] [place] [address] Care Team Providers Name Role Phone Robin Duncan MD Primary Care Provider Encounter Details Date Type Department Care Team Description 11/17/2005 Office Visit [facility] Aida Wang MD [place] [address] [address] [place] [address] [place] [address] [phone] Social History Tobacco Use Types Packs/Day Years [...] 1425 Note Time: 11/17/05 0001 Status: Signed Student Truck Driver: Nissa Silver MD (Physician) NAME: LORA STEWART MR: [id number] ACCT: [id number] VISIT: [id number] DICTATING CLINICIAN: Nissa Silver MD JOB: [id number] LOC: 706 CLINIC PROGRESS NOTE DATE OF [...] and contact him with the above results. RIZVI:[id number] C: 11/18/05 15:46 DOCUMENT: [id number] documented in this encounter Plan of Treatment Not on filedocumented as of this encounter Visit Diagnoses Not on filedocumented in this encounter Care Teams Senior Research Associate Relationship Specialty Start Date End Date Robin Duncan MD PCP - General 06/03/10 10/17/12 [address] [place] [address] [address] documented as of this encounter
--- OUTSIDE RECORDS SUMMARY | 2021-12-18 12:11 | XMS_ITS | Encounter Summary ---
:1980 Author Organization [facility] Address [address] [place] [address] Care Team Providers Name Role Phone Robin Duncan MD Primary Care Provider Encounter Details Date Type Department Care Team Description 09/13/2005 PN Conversion Only WEBB CONVERSION Jimmy Chapin G, [address] [facility] [place] [address] [facility] [address] [place], [place] [address] (Wo rk) Social History [...] Results ALT (SGPT) (09/13/2005 11:53 AM CDT) [facility] gist Method Time Signature Alanine 35 [...] filedocumented in this encounter Care Teams Tax Consultant Relationship Specialty Start Date End Date Robin Duncan MD PCP - General 06/03/10 10/17/12 [address] [place] [address] [address] documented as of this encounter
--- OUTSIDE RECORDS SUMMARY | 2021-12-18 12:11 | XMS_ITS | Encounter Summary ---
:1980 Author Organization [employer] Address [address] [place] [address] Care Team Providers Name Role Phone Robin Duncan MD Primary Care Provider Encounter Details Date Type Department Care Team Description 04/21/2005 Office Visit [facility] 3850 Urgent Ruddy Jansen Care MD [address] [place] [address] [place], [place] [phone] [address] Social History Tobacco Use Types Packs/Day Years Used Date Smoking Tobacco: Never Alcohol Use Standard Drinks/Week Comments Not Asked 0 (1 standard drink = 0.6 oz pure alcoho l) Sex Assigned at Date Recorded Not on file documented as of this encounter Last Filed Vital Signs Vital Sign Reading Time Taken Comments Blood Pressure 118/64 04/21/2005 5:21 PM CARE GIVER Pulse 88 04/21/2005 5:21 PM CARE GIVER Temperature 36.9 ??C (98.4 ??F) 04/21/2005 5:21 PM CARE GIVER C: 36 .9 C Respiratory Rate 16 04/21/2005 5:21 PM CARE GIVER Oxygen Saturation - - Inhaled Oxygen Concentration - - Weight - - Height - - Body Mass Index - - documented in this encounter Progress Notes Bia Jansen MD - 04/21/2005 12:01 AM CST Progress Notes signed by Bia Jansen MD at 05/03/05 0856 Author: Bia Jansen MD Service: (none) Author Type: Physician Filed: 06/21/10 1020 Note Time: 04/21/052012 Status: Signed Manager Medicare Marketing: Bia Jansen MD (Physician) NAME: LORA STEWART MR: [id number] ACCT: [id number] VISIT: [id number] DICTATING CLINICIAN: IBA JANSEN MD JOB: [id number] CLINIC PROGRESS NOTE DATE OF VISIT: 04/21/2005 [...] to do some followup with primary care. CJF:[id number] C: 04/22/05 17:54 DOCUMENT: [id number] GIVER documented in this encounter Plan of Treatment Not on filedocumented as of this encounter Visit Diagnoses Not on filedocumented in this encounter Care Teams Rotary Drill Operator Relationship Specialty Start Date End Date Robin Duncan MD PCP - General 06/03/10 10/17/12 [address] [address] [place] [address] documented as of this encounter
--- OUTSIDE RECORDS SUMMARY | 2021-12-18 12:11 | XMS_ITS | Encounter Summary ---
:1980 Author Organization [employer] Address [address] [place] [address] Care Team Providers Name Role Phone Robin Duncan MD Primary Care Provider Reason for Visit Reason Comments Other Encounter Details Date Type Department Care Team Description 06/19/2005 Telephone [facility] Tabby Yates MD [place] [id number] [place] [address] [place], [place] [phone] (Wo rk) Social History Tobacco Use Types Packs/Day Years Used Date Smoking Tobacco: Never Alcohol Use Standard Drinks/Week Comments Not Asked 0 (1 standard drink = 0.6 oz pure alcoho l) Sex Assigned at Date Recorded Not on file documented as of this encounter Progress Notes Tree York RN - 06/19/2005 1:20 PM CDT Phone Note filed by Tree York RN at 06/18/10 9562 Author: Tree York RN Service: (none) Author Type: Registered Nurse Filed: 06/18/100 Note Time: 06/19/05 1320 Status: Signed Priming Powder Premix Blender: Tree York RN (Registered Nurse) Pt seen by Dr. Silver on 06/16. An appt at the [facility] orthopedic canistota was supposed to have been made for him. He hasn't heard anything about this appt. Please schedule the [facility] appt for 2 weeks from now or further out and call pt to let him know when the appt is. [phone]. OK to leave a detailed message. Created on 19Jun2005 1:20pm by TREE YORK On 19Jun2005 1:57pm TABBY MARQUEZ wrote: forwarded to nursing. SNS. Acknowledged by TABBY MARQUEZ on 1:57pm INAL COMPUTER OPERATOR documented in this encounter Plan of Treatment Not on filedocumented as of this encounter Visit Diagnoses Not on filedocumented in this encounter Care Teams Able Bodied Seaman Relationship Specialty Start Date End Date Robin Duncan MD PCP - General 06/03/10 10/17/12 [address] [place] [address] [place] [address] documented as of this encounter
--- OUTSIDE RECORDS SUMMARY | 2021-12-18 12:11 | XMS_ITS | Encounter Summary ---
:1980 Author Organization [facility] Address [address] [place] [address] Care Team Providers Name Role Phone Robin Duncan MD Primary Care Provider Reason for Visit Reason Comments Other Encounter Details Date Type Department Care Team Description 12/16/2005 Telephone [facility] [employer] Hagerman, Message Other [address] [place], [place] [address] Social History Tobacco Use Types Packs/Day Years Used Date Smoking Tobacco: Never Alcohol Use Standard Drinks/Week Comments Not Asked 0 (1 standard drink = 0.6 oz pure alcoho l) Sex Assigned at Date Recorded Not on file documented as of this encounter Progress Notes Center, Message - 12/16/2005 4:12 PM CDT Phone Note filed by [employer] at 06/18/10 3049 Author: [employer] Service: (none) Author Type: (none) Filed: 06/18/1031 Note Time: 12/16/05 1612 Status: Signed Certified Caregiver: [employer] Prescription Refill Please provide enough refills to last until patient's next visit. Comment:- Pharmacy Seq #:- Pharmacy Name:-[facility] Pharmacy Pharmacy Street or City:-[place] [place] Clinician Name:-Dr Zamora last DATE OF VISIT: [...] notify Acknowledged by ТАТЬЯНА MCCORMICK on 11:38am ISM RADIO PRESENTER documented in this encounter Plan of Treatment Not on filedocumented as of this encounter Visit Diagnoses Not on filedocumented in this encounter Care Teams Engineering Drawings Checker Relationship Specialty Start Date End Date Robin Duncan MD PCP - General 06/03/10 10/17/12 [address] [place] [address] [place] [address] documented as of this encounter
--- OUTSIDE RECORDS SUMMARY | 2021-12-18 12:11 | XMS_ITS | Encounter Summary ---
:1980 Author Organization [facility] Address [address] [place] [address] Care Team Providers Name Role Phone Robin Duncan MD Primary Care Provider Encounter Details Date Type Department Care Team Description 07/04/2005 PN Conversion Only [facility] Kennedy Zuñiga MD [address] [facility] PAVAN [place] [address] [place] [phone] [address] Social History Tobacco Use Types Packs/Day Years Used Date Smoking Tobacco: Never Alcohol Use Standard Drinks/Week Comments Not Asked 0 (1 standard drink = 0.6 oz pure alcoho l) Sex Assigned at Date Recorded Not on file documented as of this encounter Plan of Treatment Not on filedocumented as of this encounter Visit Diagnoses Not on filedocumented in this encounter Care Teams Application Defense Manager Relationship Specialty Start Date End Date Robin Duncan MD PCP - General 06/03/10 10/17/12 [address] [place] [place] [address] documented as of this encounter
--- OUTSIDE RECORDS SUMMARY | 2021-12-18 12:11 | XMS_ITS | Encounter Summary ---
:1980 Author Organization [facility] Address [address] [facility] [place] [address] Care Team Providers Name Role Phone Robin Duncan MD Primary Care Provider Encounter Details Date Type Department Care Team Description 11/18/2005 PN Conversion Only [facility] ON Darrian Strauss MD [address] [facility] [address] [place] [address] 200 [place] [address] (Wo rk) Social History Tobacco Use Types Packs/Day Years Used Date Smoking Tobacco: Never Alcohol Use Standard Drinks/Week Comments Not Asked 0 (1 standard drink = 0.6 oz pure alcoho l) Sex Assigned at Date Recorded Not on file documented as of this encounter Plan of Treatment Not on filedocumented as of this encounter Procedures Procedure Name Priority Date/Time Associated Diagnosis [facility] DRUG ABUSE Routine 11/18/2005 2:01 PM Results f or this SCREEN,URINE,W/ CDT procedure ar e in CONF the results section. documented in this encounter Results (ABNORMAL) Drug Abuse Screen,Urine,W/ Conf (11/18/2005 2:01 PM CDT) [facility] Method Time Signature Marijuana POSITIVE (A) No normal HP CONVERSION range Comment: Confirmed POSITIVE by GC/MS for 9-carbox y-THC (marijuana or Marinol use). 6-hlrenxe-HPZ = 101 ng/mL. Cocaine NEG No normal [...] on filedocumented in this encounter Care Teams Curtain Stretcher Relationship Specialty Start Date End Date Robin Duncan MD PCP - General 06/03/10 10/17/[address] [place] [address] documented as of this encounter
--- OUTSIDE RECORDS SUMMARY | 2021-12-18 12:11 | XMS_ITS | Encounter Summary ---
:1980 Author Organization [facility] Address [address] [place] [address] Care Team Providers Name Role Phone Robin Duncan MD Primary Care Provider Encounter Details Date Type Department Care Team Description 04/16/2005 PN Conversion Only LEADERSHIP PROGRAM INTERN 3850 [address] [place] [address] Social History Tobacco Use Types Packs/Day Years Used Date Smoking Tobacco: Never Alcohol Use Standard Drinks/Week Comments Not Asked 0 (1 standard drink = 0.6 oz pure alcoho l) Sex Assigned at Date Recorded Not on file documented as of this encounter Plan of Treatment Not on filedocumented as of this encounter Visit Diagnoses Not on filedocumented in this encounter Care Teams Supervisor Silvering Department Relationship Specialty Start Date End Date Robin Duncan MD PCP - General 06/03/10 10/17/12 [address] [place] [address] [place] [address] documented as of this encounter
--- OUTSIDE RECORDS SUMMARY | 2021-12-18 12:11 | XMS_ITS | Encounter Summary ---
:1980 Author Organization [employer] [facility] Address [address] [place] [address] Care Team Providers Name Role Phone Robin Duncan MD Primary Care Provider Encounter Details Date Type Department Care Team Description 08/12/2006 PN Conversion Only WOVEN BLIND LOOM TENDER [address] [place] [address] Social History Tobacco Use Types Packs/Day Years Used Date Smoking Tobacco: Never Alcohol Use Standard Drinks/Week Comments Not Asked 0 (1 standard drink = 0.6 oz pure alcoho l) Sex Assigned at Date Recorded Not on file documented as of this encounter Plan of Treatment Not on filedocumented as of this encounter Visit Diagnoses Not on filedocumented in this encounter Care Teams Vocational Training Teacher Relationship Specialty Start Date End Date Robin Duncan MD PCP - General 06/03/10 10/17/12 [address] [place] [address] documented as of this encounter
--- OUTSIDE RECORDS SUMMARY | 2021-12-18 12:11 | XMS_ITS | Encounter Summary ---
:1980 Author Organization [employer] Address [address] [facility] [place] [address] Care Team Providers Name Role Phone Robin Duncan MD Primary Care Provider Encounter Details Date Type Department Care Team Description 06/16/2005 Office Visit [facility] Aida Wang MD [place] [address] [address] [place] [address] [place] [address] [phone] Social History Tobacco Use Types Packs/Day Years [...] signed by Nissa Wang MD at 07/09/05 6117 Author: Nissa Silver MD Service: (none) Author Type: Physician Filed: 06/21/10 1128 Note Time: 06/16/052012 Status: Signed Supervisor Ornamental Ironworking: Nissa Silver MD (Physician) NAME: LORA STEWART MR: [id number] ACCT: [id number] VISIT: [id number] DICTATING CLINICIAN: Nissa Silver MD JOB: [id number] CLINIC PROGRESS NOTE DATE OF VISIT: 06/16/2005 [...] palpation. Strength normal with shoulder shrug and fruit or nut picker strength. ASSESSMENT: This is a 25-year-old male [...] would not benefit frem cervical steroid injection. RIZVI:[id number] C: 06/17/05 16:27 DOCUMENT: [id number] documented in this encounter Plan of Treatment Not on filedocumented as of this encounter Visit Diagnoses Not on filedocumented in this encounter Care Teams Cigar Wrapper Tender Automatic Relationship Specialty Start Date End Date Robin Duncan MD PCP - General 06/03/10 10/17/12 [address] [place] [address] [address] documented as of this encounter
--- OUTSIDE RECORDS SUMMARY | 2021-12-18 12:11 | XMS_ITS | Encounter Summary ---
:1980 Author Organization [employer] Address [address] [facility] [place] [address] Care Team Providers Name Role Phone Robin Duncan MD Primary Care Provider Encounter Details Date Type Department Care Team Description 08/22/2005 Office Visit [facility] Karly Marquez MD [address] [place] [address] [place] [address] [phone] (Wo rk) Social History Tobacco Use Types [...] 06/21/10 1250 Note Time: 08/22/052012 Status: Signed Production Staff Worker: Karly Marquez MD (Physician) NAME: LORA STEWART MR: [id number] ACCT: [id number] VISIT: [id number] DICTATING CLINICIAN: KARLY MARQUEZ MD JOB: [id number] CLINIC PHYSICAL DATE OF VISIT: 08/22/2005 SUBJECTIVE: [...] when he is fasting. Follow up p.r.n. M:[id number] C: 08/25/05 13:44 DOCUMENT: [id number] documented in this encounter Plan of Treatment Not on filedocumented as of this encounter Visit Diagnoses Not on filedocumented in this encounter Care Teams Correctional Case Records Supervisor Relationship Specialty Start Date End Date Robin Duncan MD PCP - General 06/03/10 10/17/12 [address] [place] [address] documented as of this encounter
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
--- OUTSIDE RECORDS SUMMARY | 2021-12-18 12:11 | XMS_ITS | Encounter Summary ---
:1980 Author Organization [employer] Address [address] [place] [address] Care Team Providers Name Role Phone Robin Duncan MD Primary Care Provider Encounter Details Date Type Department Care Team Description 12/26/2005 Rod Puller Only CONVERSION CONVERSION Darrian Strauss MD [address] [place] [address] [place] [address] (Wo rk) Social History Tobacco Use [...] 1513 Note Time: 12/26/05 0001 Status: Signed Candle Molder Machine: Darrian Strauss MD (Physician) patient failed medication management appointment. 1st letter sent. no charge. documented in this encounter Plan of Treatment Not on filedocumented as of this encounter Visit Diagnoses Not on filedocumented in this encounter Care Teams Drum Maker Relationship Specialty Start Date End Date Robin Duncan MD PCP - General 06/03/10 10/17/[address] [place] [address] documented as of this encounter
--- OUTSIDE RECORDS SUMMARY | 2021-12-18 12:11 | XMS_ITS | Encounter Summary ---
:1980 Author Organization [employer] Address [address] [place] [address] Care Team Providers Name Role Phone Robin Duncan MD Primary Care Provider Encounter Details Date Type Department Care Team Description 11/17/2005 PN Conversion Only [place] CONVERSION Nissa Wang, [address] [facility] [place] [address] [address] (Wo rk) Social History [...] Transmitted Disease Probe (11/17/2005 5:20 PM CDT) [facility] Method Time Signature Sexually SEE TEXT HP CONVERSION Transmitted Disease Probe Comment: Patient: LORA STEWATR R Sexually Trans Disease Probe @ ?Collected: ??[id number] ??1720 Source: Urine ? Processed: ??[id number] ??1720 ? PLB Final Report ------ ?[id number] ??1333 No Chlamydia trachomatis detected by amp lified DNA assay No Neisseria gonorrhoeae detected by amp lified DNA assay The Probetec Amplified DNA assay is marjan red by the FDA for non-medicolegal diagnostic testing in the adult population. It has not been cleared for use in the pediatric population. @ = Sexually Trans Disease Probe Perform ed at ??[address] [address] Specimen (Source) Anatomical Collection Method Collection Time Re ceived Time Location / / Volume Laterality 11/17/2005 5:20 PM CDT Nissa Wang MD LAB_1 Performing Organization Address City/[facility] Phon e Number HP CONVERSION HIV Antibody (11/17/2005 5:20 PM CDT) P athologist Signature HIV 1/HIV 2 Non Reac Non Reac HP CONVERSION Specimen (Source) Anatomical Collection Method Collection Time Re ceived Time Location / / Volume Laterality 11/17/2005 5:20 PM CDT Nissa Wang MD LAB_[address] [facility] Code Phon e Number HP CONVERSION documented in this encounter Visit Diagnoses Not on filedocumented in this encounter Care Teams Geriatrics Physician Relationship Specialty Start Date End Date Robin Duncan MD PCP - General 06/03/10 10/17/12 [address] [address] [address] documented as of this encounter
--- OUTSIDE RECORDS SUMMARY | 2021-12-18 12:11 | XMS_ITS | Encounter Summary ---
:1980 Author Organization [facility] Address [address] [place] [address] Care Team Providers Name Role Phone Robin Duncan MD Primary Care Provider Encounter Details Date Type Department Care Team Description 02/27/2006 PN Conversion Only MANAGER GALLERY [address] [place] [address] Social History Tobacco Use Types Packs/Day Years Used Date Smoking Tobacco: Never Alcohol Use Standard Drinks/Week Comments Not Asked 0 (1 standard drink = 0.6 oz pure alcoho l) Sex Assigned at Date Recorded Not on file documented as of this encounter Plan of Treatment Not on filedocumented as of this encounter Visit Diagnoses Not on filedocumented in this encounter Care Teams Epidemiology Intern Relationship Specialty Start Date End Date Robin Duncan MD PCP - General 06/03/10 10/17/12 [address] [place] [address] [place] [address] documented as of this encounter
--- OUTSIDE RECORDS SUMMARY | 2021-12-18 12:11 | XMS_ITS | Encounter Summary ---
:1980 Author Organization [facility] Address [address] [place] [address] Care Team Providers Name Role Phone Robin Duncan MD Primary Care Provider Reason for Visit Reason Comments Other Encounter Details Date Type Department Care Team Description 04/22/2005 Telephone [facility] 38[address] Urgent Ruddy Jansen, Other Care [address] [place] [address] [place], [place] [phone] Social History Tobacco Use Types Packs/Day Years [...] Filed: 06/18/1057 Note Time: 04/22/0558 Status: Signed Pilot Teacher: Benedict Peter Augustus Ramirez called [facility] this morning regarding a miscommunication that he believes happened with the prescriptions that he came to Urgent Care for. He stated that there were two meds that he wanted and only one of them got refilled. If you could please call him at your earliest convenience at [phone] he would much appreciate it. Thanks Created on 22Apr2005 9:58am by MARTHA CAMPO On 22Apr2005 2:23pm BRADFORD JANSEN wrote: I checked with the pharmacy and the presc is there and waiting for him to pick up driver. Pt was probably called for the first one and the second was not ready yet. Pt notified of this and will come to pick it up later. C Mai Acknowledged by BRADFORD JANSEN on 2:42pm ANNEALER documented in this encounter Plan of Treatment Not on filedocumented as of this encounter Visit Diagnoses Not on filedocumented in this encounter Care Teams Medical Communication Specialist Relationship Specialty Start Date End Date Robin Duncan MD PCP - General 06/03/10 10/17/12 [address] [place] [address] [place] [address] documented as of this encounter
--- OUTSIDE RECORDS SUMMARY | 2021-12-18 12:11 | XMS_ITS | Encounter Summary ---
:1980 Author Organization [facility] [facility] Address [address] [facility] [place] [address] Care Team Providers Name Role Phone Robin Duncan MD Primary Care Provider Reason for Visit Reason Comments Other Encounter Details Date Type Department Care Team Description 10/01/2005 Telephone [facility] [facility] Message Other [address] [place] [address] Social History Tobacco Use Types [...] 0659 Note Time: 10/01/05 1357 Status: Signed Gunner'S Mate: Imr Conversion Prescription Refill Please provide enough refills to last until patient's next visit. Comment:- Pharmacy Seq #:- [facility] [phone] Pharmacy Name:- Pharmacy Street or City:- Clinician [...] pharmacy. Acknowledged by ТАТЬЯНА MCCORMICK on 4:09pm SH PATCHER documented in this encounter Plan of Treatment Not on filedocumented as of this encounter Visit Diagnoses Not on filedocumented in this encounter Care Teams Heating And Refrigeration Inspector Relationship Specialty Start Date End Date Robin Duncan MD PCP - General 06/03/10 10/17/12 [address] [place] [address] [address] documented as of this encounter
--- OUTSIDE RECORDS SUMMARY | 2021-12-18 12:11 | XMS_ITS | Encounter Summary ---
:[address] [facility] Address [address] [facility] [place] [address] Care Team Providers Name Role Phone Robin Duncan MD Primary Care Provider Encounter Details Date Type Department Care Team Description 05/14/2005 Office Visit [facility] Bruno Crespo, [address] [facility] Presbyterian[place] [address] [place] [address] [address] [place], [place] [address] (Wo rk) Social History Tobacco Use Types Packs/Day Years Used Date Smoking Tobacco: Never Alcohol Use Standard Drinks/Week Comments Not Asked 0 (1 standard drink = 0.6 oz pure alcoho l) Sex Assigned at Date Recorded Not on file documented as of this encounter Last Filed Vital Signs Vital Sign Reading Time Taken Comments Blood Pressure 120/80 05/14/2005 9:42 AM FIELD TEST ENGINEER Pulse 80 05/14/2005 9:42 AM FIELD TEST ENGINEER Temperature - - Respiratory Rate - - Oxygen Saturation - - Inhaled Oxygen Concentration - - Weight 81.2 kg (179 lb 0.6 oz) 05/14/2005 9:42 AM FIELD TEST ENGINEER C : 81.2kg Height - - Body Mass Index - - documented in this encounter Progress Notes Bruno Crespo APRN, CNP - 05/14/2005 12:01 AM CST Progress Notes signed by Bruno Crespo APRN, CNP at 06/10/05 0726 Author: JENNIFER Gerard Service: (none) Author Type: Nurse Practitioner Filed: 06/21/10 1049 Note Time: 05/14/052012 Status: Signed Heart Nurse: JENNIFER Gerard (Nurse Practitioner) NAME: LORA STEWART MR: [id number] ACCT: [id number] VISIT: [id number] DICTATING CLINICIAN: BRUNO CRESPO, MS,RN,INTERNATIONAL NURSE JOB: [id number] CLINIC PROGRESS NOTE DATE OF VISIT: 05/14/2005 [...] may be have been ??diagnostic?? rehabilitation at [place]. He has also goes to chiropractor 1 [...] it was not helpful in the past. [id number]:[id number] C: 05/15/05 11:37 DOCUMENT: [id number] documented in this encounter Plan of Treatment Not on filedocumented as of this encounter Visit Diagnoses Not on filedocumented in this encounter Care Teams Hunter Trapper Relationship Specialty Start Date End Date Robin Duncan MD PCP - General 06/03/10 10/17/12 [address] [place] [address] documented as of this encounter
--- OUTSIDE RECORDS SUMMARY | 2021-12-18 12:11 | XMS_ITS | Encounter Summary ---
:1980 Author Organization [employer] Address [address] [place] [address] Care Team Providers Name Role Phone Robin Duncan MD Primary Care Provider Encounter Details Date Type Department Care Team Description 12/29/2005 Office Visit [facility] Aida Wang MD [place] [address] [address] [place] [address] [place] [address] [phone] Social History Tobacco Use Types Packs/Day Years Used Date Smoking Tobacco: Never Alcohol Use Standard Drinks/Week Comments Not Asked 0 (1 standard drink = 0.6 oz pure alcoho l) Sex Assigned at Date Recorded Not on file documented as of this encounter Last Filed Vital Signs Vital Sign Reading Time Taken Comments Blood Pressure 100/58 12/29/2005 2:18 PM NETWORK DEVELOPMENT COORDINATOR Pulse 72 12/29/2005 2:18 PM NETWORK DEVELOPMENT COORDINATOR Temperature - - Respiratory Rate - - Oxygen Saturation - - Inhaled Oxygen Concentration - - Weight 77 kg (169 lb 11.7 oz) 12/29/2005 2:18 PM NETWORK DEVELOPMENT COORDINATOR C: 77.0kg Height - - Body Mass Index 22.55 08/22/2005 4:15 PM CDT documented in this encounter Progress Notes Nissa Wang MD - 12/29/2005 12:01 AM CST Progress Notes signed by Nissa Wang MD at 02/02/06 0147 Author: Nissa Silver MD Service: (none) Author Type: Physician Filed: 06/21/10 1516 Note Time: 12/29/052012 Status: Signed Sandwich And Drink Cart Operator: Nissa Silver MD (Physician) NAME: LORA STEWART MR#: [id number] ACCT: [id number] VISIT: [id number] DICTATING CLINICIAN: Nissa Silver MD JOB: [id number] LOC: 706 CLINIC PROGRESS NOTE DATE OF [...] No.3. 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 This is all [...] preventive health care needs. PLAN: See assessment. RIZVI:[id number] C: 12/30/05 13:24 DOCUMENT: [id number] ORK DEVELOPMENT COORDINATOR documented in this encounter Plan of Treatment Not on filedocumented as of this encounter Visit Diagnoses Not on filedocumented in this encounter Care Teams Ict Development Manager Relationship Specialty Start Date End Date Robin Duncan MD PCP - General 06/03/10 10/17/12 [address] [place] [address] [place] 860507 documented as of this encounter
--- OUTSIDE RECORDS SUMMARY | 2021-12-18 12:11 | XMS_ITS | Encounter Summary ---
:1980 Author Organization [facility] Address [address] [place] [address] Care Team Providers Name Role Phone Robin Duncan MD Primary Care Provider Encounter Details Date Type Department Care Team Description 03/03/2006 Office Visit [facility] 380 Jose Leach MD Occupational Medicin e [address] [place] [address] Social History Tobacco Use Types Packs/Day Years [...] 1633 Note Time: 03/03/06 0001 Status: Signed Nuclear Fuels Research Engineer: Jose Lecah MD (Physician) NAME: LORA STEWART MR#: [id number] ACCT: [id number] VISIT: [id number] DICTATING CLINICIAN: Jose Leach MD JOB: [id number] LOC: 419 CLINIC PROGRESS NOTE DATE OF VISIT: 03/03/2006 SUBJECTIVE: COMPANY NAME: [employer]. Patient is here at the request of his employer for a fitness for duty evaluation. 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 Patient has concerns, given that he had a work injury 3-1/2 years ago while at [employer]. Sustained a back injury that was accepted [...] could aggravate things. Was told by the milling supervisor he should have a fitness for [...] for duty slip is completed as well. LOIS:[id number] C: 03/04/06 09:31 DOCUMENT: [id number] ENTRY SUPERVISOR documented in this encounter Plan of Treatment Not on filedocumented as of this encounter Visit Diagnoses Not on filedocumented in this encounter Care Teams Conical Mixer Relationship Specialty Start Date End Date Robin Duncan MD PCP - General 06/03/10 10/17/12 [address] [place] [address] [place] [address] documented as of this encounter
--- OUTSIDE RECORDS SUMMARY | 2021-12-18 12:12 | XMS_ITS | Encounter Summary ---
:1980 Author Organization [facility] Address [address] [facility] [place] [address] Care Team Providers Name Role Phone Jose Hood MD Primary Care Provider [phone] Encounter Details Date Type Department Care Team Description 03/27/2004 Therapy [facility] [place] [address] [place] [address] [place] 400 [facility] 41 (Wo rk) Social History Tobacco Use Types Packs/Day Years Used Date Smoking Tobacco: Never Alcohol Use Standard Drinks/Week Comments Not Asked 0 (1 standard drink = 0.6 oz pure alcoho l) Sex Assigned at Date Recorded Not on file documented as of this encounter Progress Notes Jose Hood - 03/27/2004 12:00 AM MANAGER SOCIAL WORK GER SOCIAL WORK Jose Hood - 03/27/2004 12:00 AM MANAGER SOCIAL WORK GER SOCIAL WORK Jose Hood - 03/27/2004 12:00 AM MANAGER SOCIAL WORK GER SOCIAL WORK documented in this encounter Plan of Treatment Not on filedocumented as of this encounter Visit Diagnoses Not on filedocumented in this encounter Care Teams Cooler Servicer Relationship Specialty Start Date End Date Jose Hood MD PCP - General 11/13/03 09/15/[address] [place] [address] Dr [address] [place] [address] documented as of this encounter
--- OUTSIDE RECORDS SUMMARY | 2021-12-18 12:12 | XMS_ITS | Encounter Summary ---
:1980 Author Organization [employer] Address [address] [place] [address] Care Team Providers Name Role Phone Robin Duncan MD Primary Care Provider Encounter Details Date Type Department Care Team Description 06/21/2004 Office Visit [facility] Nato Pizarro MD [facility] [place] [address] [place] [address] [phone] (Wo rk) Social History Tobacco Use Types [...] Service: (none) Author Type: Physician Filed: 09/25/10 1356 Note Time: 06/21/042015 Status: Addendum Commercial Mortgage Broker: Nato Pizarro MD (Physician) Related Notes: Original Note by Imr Conversion filed at 09/25/10 4720 NAME: LORA STEWART MR: [id number] ACCT: [id number] VISIT: [id number] DICTATING CLINICIAN: NATO PIZARRO MD JOB: [id number] CLINIC PROGRESS NOTE DATE OF VISIT: 06/21/2004 SUBJECTIVE: Patient comes in today wondering about cough, nasal congestion, and ear pain with sore throat for the last three weeks. Been using mdmo-laf-bawhvuz cold medicines without much relief. He has never had this before. He has had some mild runny nose with spring allergies in the past, but nothing this severe. Patient is without health insurance. Wants to know if there is anything else that should be done. 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 OBJECTIVE: VS: BP: 106/60. T: 97. Wt: [...] to this plan. FINAL IMPRESSION: Sinus congestion. JRR:[id number] C: 06/21/04 14:[address]: [id number] MAGISTRATE documented in this encounter Plan of Treatment Not on filedocumented as of this encounter Visit Diagnoses Not on filedocumented in this encounter Care Teams Job Estimator Relationship Specialty Start Date End Date Robin Duncan MD PCP - General 06/03/10 10/17/12 [address] [place] [address] documented as of this encounter
--- OUTSIDE RECORDS SUMMARY | 2021-12-18 12:12 | XMS_ITS | Encounter Summary ---
:1980 Author Organization [employer] Address [address] [place] [address] Care Team Providers Name Role Phone Jose Hood MD Primary Care Provider [phone] Reason for Visit Reason Onset Date Comments QUESTIONS, GENERAL 02/19/2004 Encounter Details Date Type Department Care Team Description 02/19/2004 Telephone [facility] Jose Cotter S, manager corporate MD [place] [address] [place] [address] [facility] 400 [place], [place] [address] (Wo rk) Social History Tobacco Use Types Packs/Day Years Used Date Smoking Tobacco: Never Alcohol Use Standard Drinks/Week Comments Not Asked 0 (1 standard drink = 0.6 oz pure alcoho l) Sex Assigned at Date Recorded Not on file documented as of this encounter Nursing Notes 02/19/2004 11:59 PM INSOLE AND HEEL STIFFENER >> JESSICA Sandra Feb 20, 2004 3:46 [...] approved by the [employer] [place] for workman's comp.They need in writing the reason this Rx is for workman's comp. Original back injury seems to have b een Mar 2003. Has been seen many times for this problem. Celexa was prescribed during the last v isit. See Dr. Hood's notes. Ins contact lens lathe operator is Angela Dyer [phone]. Left her a msg to refa x the form they need. >> KANDACE Sandra Feb 20, 2004 8:25 AM RN please see if you can help. Kandace Jean Baptiste, CHARITY >> STACY Cortez Feb 19, 2004 1:41 PM CALL PT REGARDING WORK COMP NEEDING 'S NOTE OR OK FOR CELEXA RX TO BE FILLED AT [facility]. ( THEY ALREADY HAVE THE ORDER) BUT NEEDS DR. BARAHONA OK TO FILL. documented in this encounter Plan of Treatment Not on filedocumented as of this encounter Visit Diagnoses Diagnosis Depressive disorder, not elsewhere class ified - Primary documented in this encounter Care Teams Projection Printer Relationship Specialty Start Date End Date Jose Hood MD PCP - General 11/13/03 09/15/[address] [place] [address] [address] [place], [place] [address] documented as of this encounter
--- OUTSIDE RECORDS SUMMARY | 2021-12-18 12:12 | XMS_ITS | Encounter Summary ---
:1980 Author Organization [facility] Address [address] [place] [address] Care Team Providers Name Role Phone Unassigned, Provider Primary Care Provider Unavailable Encounter Details Date Type Department Care Team Description 05/25/2003 Telephone [facility] [place] [address] [place], [place] [address] [facility] [phone] [place] [address] (Wo rk) Social History Tobacco Use Types Packs/Day Years Used Date Smoking Tobacco: Never Alcohol Use Standard Drinks/Week Comments Not Asked 0 (1 standard drink = 0.6 oz pure alcoho l) Sex Assigned at Date Recorded Not on file documented as of this encounter Progress Notes Darius Enciso - 05/25/2003 12:00 AM TANK TRUCK OPERATOR TRUCK OPERATOR documented in this encounter Plan of Treatment Not on filedocumented as of this encounter Visit Diagnoses Not on filedocumented in this encounter Care Teams Wellness Health Coach Relationship Specialty Start Date End Date Unassigned, Provider PCP - General 04/05/02 06/06/03 [address] [place] [address] documented as of this encounter
--- OUTSIDE RECORDS SUMMARY | 2021-12-18 12:12 | XMS_ITS | Encounter Summary ---
:1980 Author Organization [facility] Address [address] [place] [address] Care Team Providers Name Role Phone Darius Enciso MD Primary Care Provider Encounter Details Date Type Department Care Team Description 06/15/[address] [facility] Darius Enciso MD [address] [facility] [place] [address] [facility] [phone] [place] [address] (Wo rk) Social History Tobacco Use Types [...] filedocumented in this encounter Care Teams High Raw Sugar Boiler Relationship Specialty Start Date End Date Darius Enciso MD PCP - General 06/07/03 11/12/03 [facility] [address] [place] [address] documented as of this encounter
--- OUTSIDE RECORDS SUMMARY | 2021-12-18 12:12 | XMS_ITS | Encounter Summary ---
:1980 Author Organization [facility] Address [address] [place] [address] Care Team Providers Name Role Phone Jose Hood MD Primary Care Provider [phone] Encounter Details Date Type Department Care Team Description 11/13/2003 Correspondence None Unknown, Physici an [facility]ENT [facility] RELEASE [address] [place], [place] [address] (Wo rk) Social History Tobacco Use Types [...] on filedocumented in this encounter Care Teams Barbering Instructor Relationship Specialty Start Date End Date Jose Hood MD PCP - General 11/13/03 09/15/04 [facility] [place] [address] documented as of this encounter
--- OUTSIDE RECORDS SUMMARY | 2021-12-18 12:12 | XMS_ITS | Encounter Summary ---
:1980 Author Organization [facility] Address [address] [facility] [place] [address] Care Team Providers Name Role Phone Robin Duncan MD Primary Care Provider Encounter Details Date Type Department Care Team Description 06/23/2004 PN Conversion Only [facility] CONVERSION Social History Tobacco Use Types Packs/Day Years Used Date Smoking Tobacco: Never Alcohol Use Standard Drinks/Week Comments Not Asked 0 (1 standard drink = 0.6 oz pure alcoho l) Sex Assigned at Date Recorded Not on file documented as of this encounter Plan of Treatment Not on filedocumented as of this encounter Visit Diagnoses Not on filedocumented in this encounter Care Teams Primary Care Provider Relationship Specialty Start Date End Date Robin Duncan MD PCP - General 06/03/10 10/17/12 [address] [place] [address] [place] [address] documented as of this encounter
--- OUTSIDE RECORDS SUMMARY | 2021-12-18 12:12 | XMS_ITS | Encounter Summary ---
:1980 Author Organization [facility] Address [address] [place] [address] Care Team Providers Name Role Phone Jose Hood MD Primary Care Provider [phone] Encounter Details Date Type Department Care Team Description 02/14/2004 Therapy External to Jose Hood MD [address] [place] [address] (Wo rk) Social History Tobacco Use Types Packs/Day Years Used Date Smoking Tobacco: Never Alcohol Use Standard Drinks/Week Comments Not Asked 0 (1 standard drink = 0.6 oz pure alcoho l) Sex Assigned at Date Recorded Not on file documented as of this encounter Progress Notes Jose Hood - 02/14/2004 12:00 AM ADOPTION SPECIALIST TION SPECIALIST documented in this encounter Plan of Treatment Not on filedocumented as of this encounter Visit Diagnoses Not on filedocumented in this encounter Care Teams Floors Buffer Relationship Specialty Start Date End Date Jose Hood MD PCP - General 11/13/03 09/15/[address] [place] [address] documented as of this encounter
--- OUTSIDE RECORDS SUMMARY | 2021-12-18 12:12 | XMS_ITS | Encounter Summary ---
:1980 Author Organization [facility] Address [address] [place] [address] Care Team Providers Name Role Phone Jose Hood MD Primary Care Provider [phone] Encounter Details Date Type Department Care Team Description 11/07/2003 Correspondence External to Darius Enciso, KVNG to [facility] [address] [place] [address] (Wo rk) Social History Tobacco Use Types Packs/Day Years Used Date Smoking Tobacco: Never Alcohol Use Standard Drinks/Week Comments Not Asked 0 (1 standard drink = 0.6 oz pure alcoho l) Sex Assigned at Date Recorded Not on file documented as of this encounter Progress Notes Darius Enciso - 11/07/2003 12:00 AM CDT documented in this encounter Plan of Treatment Not on filedocumented as of this encounter Visit Diagnoses Not on filedocumented in this encounter Care Teams Crane Assembler Relationship Specialty Start Date End Date Jose Hood MD PCP - General 11/13/03 09/15/04 [facility] [place] [address] [place] [address] documented as of this encounter
--- OUTSIDE RECORDS SUMMARY | 2021-12-18 12:12 | XMS_ITS | Encounter Summary ---
:1980 Author Organization [facility] Address [address] [place] [address] Care Team Providers Name Role Phone Darius Enciso MD Primary Care Provider Encounter Details Date Type Department Care Team Description 06/13/2003 Telephone [facility] [address] [place] [address] [place], [place] [address] Social History Tobacco Use [...] on filedocumented in this encounter Care Teams Tire Buster Relationship Specialty Start Date End Date Darius Enciso MD PCP - General 06/07/03 11/12/03 [facility] [address] [place], [place] [address] documented as of this encounter
--- OUTSIDE RECORDS SUMMARY | 2021-12-18 12:12 | XMS_ITS | Encounter Summary ---
:1980 Author Organization [facility] Address [address] [place] [address] Care Team Providers Name Role Phone Robin Duncan MD Primary Care Provider Encounter Details Date Type Department Care Team Description 06/21/2004 PN Conversion Only [place] CONVERSION [address] [place] [address] Social History Tobacco Use Types Packs/Day Years Used Date Smoking Tobacco: Never Alcohol Use Standard Drinks/Week Comments Not Asked 0 (1 standard drink = 0.6 oz pure alcoho l) Sex Assigned at Date Recorded Not on file documented as of this encounter Plan of Treatment Not on filedocumented as of this encounter Visit Diagnoses Not on filedocumented in this encounter Care Teams Reeling Operator Relationship Specialty Start Date End Date Robin Duncan MD PCP - General 06/03/10 10/17/12 [address] [place] [address] [address] documented as of this encounter
--- OUTSIDE RECORDS SUMMARY | 2021-12-18 12:12 | XMS_ITS | Encounter Summary ---
:1980 Author Organization [facility] Address [address] [place] [address] Care Team Providers Name Role Phone Darius Enciso MD Primary Care Provider Encounter Details Date Type Department Care Team Description 09/27/2003 Correspondence External to Unknown, Physici an [facility] to [facility] [address] [place], [place] [address] (Wo rk) Social History Tobacco Use Types [...] on filedocumented in this encounter Care Teams Fall Internship Relationship Specialty Start Date End Date Darius Enciso MD PCP - General 06/07/03 11/12/03 [facility] [address] [place] [address] documented as of this encounter
--- OUTSIDE RECORDS SUMMARY | 2021-12-18 12:12 | XMS_ITS | Encounter Summary ---
:1980 Author Organization [employer] Address [address] [place] [address] Care Team Providers Name Role Phone Jose Hood MD Primary Care Provider [phone] Reason for Visit Reason Comments FOLLOW-UP,WORK COMP back pain 06/01/03 Encounter Details Date Type Department Care Team Description 02/12/2004 Office Visit [facility] Jose Hood BACKACHE NOS (Primary Dx); Practice MD [place] DEPRESSIVE DISORDER NOS [address] [place] [address] [place] [address] [place] [address] Social History Tobacco Use Types Packs/Day Years Used Date Smoking Tobacco: Never Alcohol Use Standard Drinks/Week Comments Not Asked 0 (1 standard drink = 0.6 oz pure alcoho l) Sex Assigned at Date Recorded Not on file documented as of this encounter Last Filed Vital Signs Vital Sign Reading Time Taken Comments Blood Pressure 138/62 02/12/2004 4:39 PM CURRICULUM ASSISTANT Pulse 76 02/12/2004 4:39 PM CURRICULUM ASSISTANT Temperature - - Respiratory Rate 16 02/12/2004 4:39 PM CURRICULUM ASSISTANT Oxygen Saturation - - Inhaled Oxygen Concentration - - Weight 75.9 kg (167 lb 6.4 oz) 02/12/2004 4:39 PM CURRICULUM ASSISTANT Height - - Body Mass Index - - documented in this encounter Progress Notes 02/12/2004 4:20 PM CURRICULUM ASSISTANT This encounter has been dictated. MD Sana [...] counseling and coordination of care. P cc: ICULUM ASSISTANT documented in this encounter Plan of Treatment Not on filedocumented as of this encounter Visit Diagnoses Diagnosis Backache, unspecified - Primary Depressive disorder, not elsewhere class ified documented in this encounter Care Teams Precinct Police Lieutenant Relationship Specialty Start Date End Date Jose Hood MD PCP - General 11/13/03 09/15/[address] [place] [address] Dr [address] [place] [address] documented as of this encounter
--- OUTSIDE RECORDS SUMMARY | 2021-12-18 12:12 | XMS_ITS | Encounter Summary ---
:1980 Author Organization [employer] Address [address] [place] [address] Care Team Providers Name Role Phone Darius Enciso MD Primary Care Provider Encounter Details Date Type Department Care Team Description 09/11/[address] [facility] ([place] [place]) Darius Enciso LOW BACK PAIN(ACUTE)<6 Practice MD Mary [place] [address] [place] [address] [facility] [address] [place], [place] [phone] [address] Social History Tobacco Use Types Packs/Day Years [...] Tobacco Status reviewed? (see History Social-Substance) -YES auto self service station attendant offered? -NOT APPLICABLE. Aspirin taken daily? -NO BP was taken on the RIGHT arm. BP cuff size used? -Adult Regular Health Education given? -NO. 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
--- OUTSIDE RECORDS SUMMARY | 2021-12-18 12:12 | XMS_ITS | Encounter Summary ---
:1980 Author Organization [employer] Address [address] [facility] [place] [address] Care Team Providers Name Role Phone Trista Hood MD Primary Care Provider [phone] Reason for Referral Specialty Diagnoses / Procedures Referred By Contact Refer red To Contact Trista Hood MD [facility] [place] [address] Referral ID Status Reason Start Date Expiration Date Visits Requ ested Visits Authorized LER TEACHER Reason for Visit Reason Onset Date Comments QUESTIONS, REFERRAL 04/29/2004 Encounter Details Date Type Department Care Team Description 04/29/2004 Telephone Trista Desir, REFERRAL Practice MD [place] [address] [place] [address] [address] [place], [place] [address] (Wo rk) Social History Tobacco Use Types Packs/Day Years Used Date Smoking Tobacco: Never Alcohol Use Standard Drinks/Week Comments Not Asked 0 (1 standard drink = 0.6 oz pure alcoho l) Sex Assigned at Date Recorded Not on file documented as of this encounter Nursing Notes 04/29/2004 11:59 PM TODDLER TEACHER >> KANDACE JEAN BAPTISTE ThuApr 29, 2004 4:05 PM Pt. aware and agrees with plan. Will check and see what chiro covered with his W/C and schedule appt. Kandace Jean Baptiste LPN >> TRISTA HOOD Mon Apr 29, 2004 4:00 PM Keep this date. Pt may see Chiro in the meantime as discussed. Trista Hood MD >> COURTNEY METZGER ThuApr 29, 2004 3:18 PM First available appt. For Ri /Phy. is 06/[address] Victoria. He was to be be seen within 2 weeks. documented in this encounter Plan of Treatment Scheduled Referrals Name Type Priority Associated Diagnoses Order S chedule STEEL ROLLER Referral Routine Backache Nos Ordered: 0 04/29/2004 documented as of this encounter Visit Diagnoses Diagnosis Backache, unspecified - Primary documented in this encounter Care Teams Fine Artist Relationship Specialty Start Date End Date Trista Hood MD PCP - General 11/13/03 09/15/[address] [place] [address] [address] [place], [place] [address] documented as of this encounter
--- OUTSIDE RECORDS SUMMARY | 2021-12-18 12:12 | XMS_ITS | Encounter Summary ---
:1980 Author Organization [facility] Address [address] [place] [address] Care Team Providers Name Role Phone Jose Hood MD Primary Care Provider [phone] Encounter Details Date Type Department Care Team Description 06/18/2004 Therapy External to Devon Enciso MD [facility] [id number] [place] [id number] (Wo rk) Social History Tobacco Use Types [...] on filedocumented in this encounter Care Teams Planner Scheduler Relationship Specialty Start Date End Date Jose Hood MD PCP - General 11/13/03 09/15/04 [facility] [place], [place] [address] documented as of this encounter
--- OUTSIDE RECORDS SUMMARY | 2021-12-18 12:12 | XMS_ITS | Encounter Summary ---
:1980 Author Organization [facility] Address [address] [place] [address] Care Team Providers Name Role Phone Jose Hood MD Primary Care Provider [phone] Encounter Details Date Type Department Care Team Description 06/23/2004 Emergency [facility] Sonia Zavaleta MD [address] [place] [address] Dr [facility] [place] [address] [address] [facility]. Sonia Zavaleta MD [address] [place] [address] [address] [facility] [place] [address] [place] [address] Social History Tobacco Use Types Packs/Day Years [...] 12:01 AM CDT NAME: LORA STEWART MR: [id number] ACCT: VISIT: [id number] DICTATING CLINICIAN: SONIA LEIJA MD JOB: [id number] CLINIC PROGRESS NOTE DATE OF VISIT: 06/23/2004 [...] Tylenol p.r.n. pain. 4. Follow up p.r.n. HCV:[id number] C: 06/24/04 15:24 DOCUMENT: [id number] documented in this encounter Plan of Treatment Not on filedocumented as of this encounter Visit Diagnoses Not on filedocumented in this encounter Care Teams Shift Boss Relationship Specialty Start Date End Date Jose Hood MD PCP - General 11/13/03 09/15/[address] [facility] [address] documented as of this encounter
--- OUTSIDE RECORDS SUMMARY | 2021-12-18 12:12 | XMS_ITS | Encounter Summary ---
:1980 Author Organization [facility] Address [address] [employer] [place] [address] Care Team Providers Name Role Phone Unassigned, Provider Primary Care Provider Unavailable Encounter Details Date Type Department Care Team Description 05/23/2003 Correspondence External to Unknown, Physici an [employer] [address] [place] [address] (Wo rk) Social History Tobacco Use Types Packs/Day Years Used Date Smoking Tobacco: Never Alcohol Use Standard Drinks/Week Comments Not Asked 0 (1 standard drink = 0.6 oz pure alcoho l) Sex Assigned at Date Recorded Not on file documented as of this encounter Progress Notes Unknown, Physician - 05/23/2003 12:00 AM SCRAP DROP CRANE OPERATOR documented in this encounter Plan of Treatment Not on filedocumented as of this encounter Visit Diagnoses Not on filedocumented in this encounter Care Teams Geothermal Heat Pump Machinist Relationship Specialty Start Date End Date Unassigned, Provider PCP - General 04/05/02 06/06/03 [address] [place] [address] documented as of this encounter
--- OUTSIDE RECORDS SUMMARY | 2021-12-18 12:12 | XMS_ITS | Encounter Summary ---
:1980 Author Organization [facility] Address [address] [place] [address] Care Team Providers Name Role Phone Darius Enciso MD Primary Care Provider Encounter Details Date Type Department Care Team Description 10/23/2003 Orders [place] [address] [facility] [address] [place], [place] [address] [place] [address] [phone] (Wo rk) Social History Tobacco Use Types [...] RPR (SYPHYLIS SCREEN) (10/23/2003 11:56 AM CDT) [facility] Method Time Signature Syphilis Non-Reacti NR [facility] Screen(RPR) ve Specimen Anatomical Collection Method Collection Time Receive d Time (Source) Location / / Volume Laterality 10/23/2003 11:56 10/23/2003 AM CDT 11:57 AM CDT Belem Trejo MD LAB_1 Performing Organization Address [facility] Phon e Number [facility] [address] [phone] HIV 1/2 ANTIBODY (10/23/2003 11:56 AM CDT) [facility] Method Time Signature HIV 1/2 Non-Reacti NR [facility] Antibody ve Specimen Anatomical Collection Method Collection Time Receive d Time (Source) Location / / Volume Laterality 10/23/2003 11:56 10/23/2003 AM CDT 11:57 AM CDT Belem Trejo MD LAB_1 Performing Organization Address City/[facility] Phon e Number [facility] [address] [phone] HEPATITIS B SURFACE, AB (10/23/2003 11:56 AM CDT) athologist Signature Anti-HBs Negative NEG [facility] Specimen Anatomical Collection Method Collection Time Receive d Time (Source) Location / / Volume Laterality 10/23/2003 11:56 10/23/2003 AM CDT 11:57 AM CDT Belem Trejo MD LAB_1 Performing Organization Address [facility] Phon e Number [facility] Md[address] [phone] HBSAG (B SURFACE ANTIGEN) (10/23/2003 11:56 AM CDT) P athologist Signature HBsAg Negative NEG [facility] Specimen Anatomical Collection Method Collection Time Receive d Time (Source) Location / / Volume Laterality 10/23/2003 11:56 10/23/2003 AM CDT 11:57 AM CDT Belem Trejo MD LAB_1 Performing Organization Address [facility]/ZIP Code Phon e Number [facility] [address] [phone] GC (N. GONORRHOEAE) (10/23/2003 11:56 AM CDT) [facility] gist Method Time Signature GC (N. Negative NEG [facility] gonorrhoeae) GC (N. Test [facility] gonorrhoeae) Performed by PCR Assay Source Urine [facility] Specimen Anatomical Collection Method Collection Time Receive d Time (Source) Location / / Volume Laterality 10/23/2003 11:56 10/23/2003 AM CDT 11:57 AM CDT Belem Trejo MD LAB_1 Performing Organization Address [facility]/ZIP Code Phon e Number [facility] Md[address] [phone] CHLAMYDIA (10/23/2003 11:56 AM CDT) [facility] gist Method Time Signature Chlamydia Negative NEG [facility] Chlamydia Test Performed [facility] by PCR Assay Source Urine [facility] Specimen Anatomical Collection Method Collection Time Receive d Time (Source) Location / / Volume Laterality 10/23/2003 11:56 10/23/2003 AM CDT 11:57 AM CDT Belem Trejo MD LAB_1 Performing Organization Address City/[facility]/ZIP [facility] Phon e Number [facility] Md[address] [phone] documented in this encounter Visit Diagnoses Not on filedocumented in this encounter Care Teams Pilot Plant Technician Relationship Specialty Start Date End Date Darius Enciso MD PCP - General 06/07/03 11/12/03 [facility] [address] [place] [address] documented as of this encounter
--- OUTSIDE RECORDS SUMMARY | 2021-12-18 12:12 | XMS_ITS | Encounter Summary ---
:1980 Author Organization [employer] Address [address] [facility] [place] [address] Care Team Providers Name Role Phone Darius Enciso MD Primary Care Provider Encounter Details Date Type Department Care Team Description 10/23/2003 Office Visit Jose Desir LOW BACK PAIN (CHRONIC)>6 WEEKS; Practice MD Markus LOW BACK PAIN(ACUTE)<6 WEEKS [address] [place] [address] [facility] [address] [place], [place] [address] Social History Tobacco Use Types Packs/Day Years Used Date Smoking Tobacco: Never Alcohol Use Standard Drinks/Week Comments Not Asked 0 (1 standard drink = 0.6 oz pure alcoho l) Sex Assigned at Date Recorded Not on file documented as of this encounter Last Filed Vital Signs Vital Sign Reading Time Taken Comments Blood Pressure 98/54 10/23/2003 10:00 AM CDT Pulse 76 10/23/2003 10:00 AM CDT Temperature - - Respiratory Rate 16 10/23/2003 10:00 AM CDT Oxygen Saturation - - Inhaled Oxygen Concentration - - Weight 76.9 kg (169 lb 9.6 oz) 10/23/2003 10:00 AM CDT Height - - Body Mass Index - - documented in this encounter Progress Notes 10/23/2003 10:00 AM CDT Augustus Ramirez is here today for f/u W/C back pain DOI:06/01/03. Are you having other pain today, that you want to discuss with the provider? -NO Do you need refills on any of your medications today? -NO Preventive Services up to date? -YES Immunizations up to date? -YES Do you ever feel physically threatened or emotionally afraid? -NOT ASKED Tobacco Status reviewed? (see History Social-Substance) -YES infirmary attendant offered? -NOT APPLICABLE. Aspirin taken daily? -NO BP was taken on the RIGHT arm. BP cuff size used? -Adult Large Health Education given? -NO. Contact phone number [phone] (home) , alternate phone number- BP 98/54 Pulse 76 Resp 16 Wt 169 lbs 10 oz (76.9kg) Current outpatient prescriptions: SULINDAC (CLINORIL) 200MG ORAL TABS,1 TABLET TWICE DAILY as needed,Disp: 60,Rfl: 99 Review of patient's allergies indicates no known allergies. Sophie Jean Baptiste LPN 10/23/2003 10:07 AM Jose Hood - 10/23/2003 12:00 AM CDTS: Patient here for follow-up of work comp injury. Please see previous note from 10/11/03. He has been working six-hour days and has been doing fairly well with this. Did have some soreness toward the end of the week. He states that the first six hours of his work day are the hardest and that the last two hours are fairly easy. Therefore, he feels comfortable going back to eight-hour days. O: Alert, in no acute distress. Examination of the back reveals minimal tenderness over the SI joint areas bilaterally. Excellent range of motion. Distal CMS intact. A: Chronic low back pain - improving. P: Patient to return to full duties. Follow-up in one to two weeks prn. 10:26 A cc: Jose Hood - 10/23/2003 12:00 AM CDT documented in this encounter Plan of Treatment Not on filedocumented as of this encounter Visit Diagnoses Diagnosis Other unspecified back disorder Lumbago documented in this encounter Care Teams Wet Plant Operator Relationship Specialty Start Date End Date Darius Enciso MD PCP - General 06/07/03 11/12/03 [facility] [address] [place] [address] documented as of this encounter
--- OUTSIDE RECORDS SUMMARY | 2021-12-18 12:12 | XMS_ITS | Encounter Summary ---
:1980 Author Organization [employer] Address [address] [facility] [place] [address] Care Team Providers Name Role Phone Jose Hood MD Primary Care Provider [phone] Reason for Referral Specialty Diagnoses / Procedures Referred By Contact Refer red To Contact Jose Hood MD [facility] [facility] [place] [address] Referral ID Status Reason Start Date Expiration Date Visits Requ ested Visits Authorized Y THREADER Reason for Visit Reason Comments BACK PAIN f/u W/C back pain DOI: 4 Encounter Details Date Type Department Care Team Description 04/29/2004 Office Visit [facility] Jose Hood BACKACHE NOS (Primary Practice MD Markus Dx) [address] [place] [address] [address] [place] [address] [place] [id number] Social History Tobacco Use Types Packs/Day Years Used Date Smoking Tobacco: Never Alcohol Use Standard Drinks/Week Comments Not Asked 0 (1 standard drink = 0.6 oz pure alcoho l) Sex Assigned at Date Recorded Not on file documented as of this encounter Last Filed Vital Signs Vital Sign Reading Time Taken Comments Blood Pressure 100/58 04/29/2004 2:19 PM HEAVY THREADER Pulse 68 04/29/2004 2:19 PM HEAVY THREADER Temperature - - Respiratory Rate 16 04/29/2004 2:19 PM HEAVY THREADER Oxygen Saturation - - Inhaled Oxygen Concentration - - Weight 81.3 kg (179 lb 3.2 oz) 04/29/2004 2:19 PM HEAVY THREADER Height - - Body Mass Index - - documented in this encounter Progress Notes 04/29/2004 2:20 PM HEAVY THREADER This encounter has been dictated. MD Sana Wilde Robert Anthony - 04/29/2004 12:00 AM CSTSUBJECTIVE: The patient here for followup of work comp back injury. Please see previous notes from 02/12/04 for details. He has finished his course of therapy at [facility]. States that he has been having neck pain over the past few months. No radiation into his arms. The pain is localized to the paraspinous muscles and trapezius muscles bilaterally. Continues to have occasional pain, low back, especially when he is leaning forward doing such activities as dishes or loading the interventionist. No numbness or weakness. OBJECTIVE: Alert, in no acute distress. Good range of motion of the neck. Good non destructive evaluation specialist strength. Normal sensation. Deep tendon reflexes [...] counseling and coordination of care. P cc: Y THREADER documented in this encounter Plan of Treatment Scheduled Referrals Name Type Priority Associated Diagnoses [facility] Referral Routine Backache Nos Ordered: 2004 documented as of this encounter Visit Diagnoses Diagnosis Backache, unspecified - Primary documented in this encounter Care Teams Magnetic Resonance Imaging Director Relationship Specialty Start Date End Date Jose Hood MD PCP - General 11/13/03 09/15/04 [facility] [facility] [address] documented as of this encounter
--- OUTSIDE RECORDS SUMMARY | 2021-12-18 12:12 | XMS_ITS | Encounter Summary ---
:1980 Author Organization [employer] Address [address] [place] [address] Care Team Providers Name Role Phone Darius Enciso MD Primary Care Provider Encounter Details Date Type Department Care Team Description 06/12/2003 Office Visit [facility] Darius Enciso [facility] Practice MD Mary (Primary Dx) [address] [place] [address] [facility] [address] [place], [place] [phone] Social History Tobacco Use Types Packs/Day Years Used Date Smoking Tobacco: Never Alcohol Use Standard Drinks/Week Comments Not Asked 0 (1 standard drink = 0.6 oz pure alcoho l) Sex Assigned at Date Recorded Not on file documented as of this encounter Last Filed Vital Signs Vital Sign Reading Time Taken Comments Blood Pressure 120/70 06/12/2003 11:20 AM CDT Pulse 68 06/12/2003 11:20 AM CDT Temperature 36.1 ??C (97 ??F) 06/12/2003 11:20 AM CDT Respiratory Rate 20 06/12/2003 11:20 AM CDT Oxygen Saturation - - Inhaled Oxygen Concentration - - Weight 72.5 kg (159 lb 12.8 oz) 06/12/2003 11:20 AM CDT Height - - Body Mass Index - - documented in this encounter Progress Notes 06/12/2003 11:20 AM CDT Augustus Ed Ramirez is here today for f/u W/C Lower back pain. Are you having other pain today, that you want to discuss with the provider? -NO Do you need refills on any of your medications today? -YES- Naprosyn Preventive Services up to date? -ADVISED TO FOLLOW UP WITH PRIMARY CARE PROVIDER Immunizations up to date? -YES Do you ever feel physically threatened or emotionally afraid? -NOT ASKED Tobacco Status reviewed? (see History Social-Substance) -YES hotel valet attendant offered? -NOT APPLICABLE. Aspirin taken daily? -NO BP was taken on the RIGHT arm. BP cuff size used? -Adult Large Health Education given? -NO. Contact phone number [phone] (home) , alternate phone number- Hanh Castrejon, [facility] 06/12/2003 11:12 AM No Current Medications. 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 Since last visit he continues to improve. He will have some aching of the low back that is very slight at the beginning of the day, a little more at the end of the day. 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 Uses some ibuprofen and Naprosyn and would like to continue the Naprosyn. He understands that he shouldn't be using them both at the same time. OBJECTIVE: Healthy adult male in no acute distress. Vital signs are unremarkable. Exam of his back shows that he moves quickly without protecting the back. He has good back motion. There is no tenderness. IMPRESSION: Resolving acute back strain. PLAN: He is released to do all activities. He is instructed in how to take better care of his back and is asked to attend physical therapy to learn some stretching exercises. Follow up in about 4 to 6 weeks for hopefully a final visit for this injury. 12:17 P cc: documented in this encounter Plan of Treatment Not on filedocumented as of this encounter Visit Diagnoses Diagnosis Sciatica (HRC) - Primary Sciatica documented in this encounter Care Teams Internal Grinder Tender Relationship Specialty Start Date End Date Darius Enciso MD PCP - General 06/07/03 11/12/03 [facility] [address] [place] [address] documented as of this encounter
--- OUTSIDE RECORDS SUMMARY | 2021-12-18 12:12 | XMS_ITS | Encounter Summary ---
:1980 Author Organization [facility] Address [address] [place] [address] Care Team Providers Name Role Phone Jose Hood MD Primary Care Provider [phone] Encounter Details Date Type Department Care Team Description 05/15/2004 Therapy External to Jose Hood MD [address] [place] [address] (Wo rk) Social History Tobacco Use Types Packs/Day Years Used Date Smoking Tobacco: Never Alcohol Use Standard Drinks/Week Comments Not Asked 0 (1 standard drink = 0.6 oz pure alcoho l) Sex Assigned at Date Recorded Not on file documented as of this encounter Progress Notes Jose Hood - 05/15/2004 12:00 AM SOFTWARE COMPUTER SPECIALIST WARE COMPUTER SPECIALIST documented in this encounter Plan of Treatment Not on filedocumented as of this encounter Visit Diagnoses Not on filedocumented in this encounter Care Teams Hogshead Stripper Relationship Specialty Start Date End Date Jose Hood MD PCP - General 11/13/03 09/15/[address] [place] [address] documented as of this encounter
--- OUTSIDE RECORDS SUMMARY | 2021-12-18 12:12 | XMS_ITS | Encounter Summary ---
:1980 Author Organization [facility] Address [address] [place] [address] Care Team Providers Name Role Phone Jose Hood MD Primary Care Provider [phone] Encounter Details Date Type Department Care Team Description 04/01/2004 Therapy External to Jose Hood MD [address] [place] [address] Dr [address] [facility] [place] [address] (Wo rk) Social History Tobacco Use Types Packs/Day Years Used Date Smoking Tobacco: Never Alcohol Use Standard Drinks/Week Comments Not Asked 0 (1 standard drink = 0.6 oz pure alcoho l) Sex Assigned at Date Recorded Not on file documented as of this encounter Progress Notes Jose Hood - 04/01/2004 12:00 AM CONTACT LENS TECHNICIAN ACT LENS TECHNICIAN Jose Hood - 04/01/2004 12:00 AM CONTACT LENS TECHNICIAN ACT LENS TECHNICIAN documented in this encounter Plan of Treatment Not on filedocumented as of this encounter Visit Diagnoses Not on filedocumented in this encounter Care Teams Vb Net Developer Relationship Specialty Start Date End Date Jose Hood MD PCP - General 11/13/03 09/15/[address] [place] [address] Dr [address] [place] [address] documented as of this encounter
--- OUTSIDE RECORDS SUMMARY | 2021-12-18 12:12 | XMS_ITS | Encounter Summary ---
:1980 Author Organization [facility] Address [address] [facility] [place] [address] Care Team Providers Name Role Phone Jose Hood MD Primary Care Provider [phone] Encounter Details Date Type Department Care Team Description 11/30/2003 Emergency [facility] Bruno Tirado MD [address] [facility] [address] [place], [place] [address] [address] Bruno Tirado MD [address] [place] [address] [place] [address] Social History Tobacco Use Types Packs/Day Years [...] 06/21/10 0042 Note Time: 11/30/032137 Status: Signed Rand Tacker: Bruno Tirado MD (Physician) NAME: LORA STEWART MR: [id number] ACCT: [id number] VISIT: AUTHENTICATING CLINICIAN: BRUNO TIRADO MD JOB: [id number] EMERGENCY CENTER REPORT - EPPA DATE OF [...] three days. DIAGNOSIS: Foreign body to eye. JJS:[id number] C: 11/30/03 22:04 DOCUMENT: [id number] documented in this encounter Plan of Treatment Not on filedocumented as of this encounter Visit Diagnoses Not on filedocumented in this encounter Care Teams Oracle Identity Management Consultant Relationship Specialty Start Date End Date Jose Hood MD PCP - General 11/13/03 09/15/04 [facility] [place] [id number] documented as of this encounter
--- OUTSIDE RECORDS SUMMARY | 2021-12-18 12:12 | XMS_ITS | Encounter Summary ---
:1980 Author Organization [facility] Address [address] [place] [address] Care Team Providers Name Role Phone Jose Hood MD Primary Care Provider [phone] Encounter Details Date Type Department Care Team Description 11/14/2003 Office Visit [place] LOW BACK PAIN (CHRONIC)>6 WEEKS; Alireza Aparicio MD LOW BACK PAIN(ACUTE)<6 WEEKS; [address] [place], [place] [address] [facility] [address] [place], [place] [id number] Social History Tobacco Use Types Packs/Day Years [...] Tobacco Status reviewed? (see History Social-Substance) -YES take away attendant offered? -NOT APPLICABLE. Aspirin taken daily? -NO BP was taken on the RIGHT arm. BP cuff size used? -Adult Regular Health Education given? -NO. Contact phone number [phone] (home) , alternate phone number- BP 98/56 [...] Cervicalgia documented in this encounter Care Teams Etcher Aircraft Relationship Specialty Start Date End Date Jose Hood MD PCP - General 11/13/03 09/15/[address] [place] [address] documented as of this encounter
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
--- OUTSIDE RECORDS SUMMARY | 2021-12-18 12:12 | XMS_ITS | Encounter Summary ---
:1980 Author Organization [facility] Address [address] [place] [address] Care Team Providers Name Role Phone Darius Enciso MD Primary Care Provider Encounter Details Date Type Department Care Team Description 06/13/2003 Correspondence None Unknown, Physici an Med records communication [address] [place] [address] (Wo rk) Social History Tobacco Use Types [...] on filedocumented in this encounter Care Teams Butcher Fish Relationship Specialty Start Date End Date Darius Enciso MD PCP - General 06/07/03 11/12/03 [facility] [address] [place] [address] documented as of this encounter
--- OUTSIDE RECORDS SUMMARY | 2021-12-18 12:12 | XMS_ITS | Encounter Summary ---
:1980 Author Organization [facility] Address [address] [place] [address] Care Team Providers Name Role Phone Darius Enciso MD Primary Care Provider Encounter Details Date Type Department Care Team Description 10/25/[address] [facility] Belem Trejo MD LAB TEST F/U Practice [address] [facility] [address] [place] [address] [place], [place] [address] [phone] Social History Tobacco Use Types Packs/Day Years [...] on filedocumented in this encounter Care Teams Slate Cutter Operator Relationship Specialty Start Date End Date Darius Enciso MD PCP - General 06/07/03 11/12/03 [facility] [address] [place] [address] documented as of this encounter
--- OUTSIDE RECORDS SUMMARY | 2021-12-18 12:12 | XMS_ITS | Encounter Summary ---
:1980 Author Organization [employer] Address [address] [place] [address] Care Team Providers Name Role Phone Darius Enciso MD Primary Care Provider Encounter Details Date Type Department Care Team Description 10/23/2003 Office Visit [facility] Belem Trejo MD SCREEN FOR VENEREAL Practice [address] [facility] [address] [address] [place] [address] [place], [place] [phone] (Work) [phone] Social History Tobacco Use Types Packs/Day Years [...] Tobacco Status reviewed? (see History Social-Substance) -YES admittance attendant offered? -NOT APPLICABLE. Aspirin taken daily? -NO BP was taken on the RIGHT arm. BP cuff size used? -Adult Large Health Education given? -NO. Contact phone number [phone] (home) , alternate phone number- Sara SchultzCHARITY [...] of 18, and has not always been baptist about using condoms. He states he was [...] se documented in this encounter Care Teams Pulp Grinder Feeder Relationship Specialty Start Date End Date Darius Enciso MD PCP - General 06/07/03 11/12/03 [place] [address] documented as of this encounter
--- OUTSIDE RECORDS SUMMARY | 2021-12-18 12:12 | XMS_ITS | Encounter Summary ---
:1980 Author Organization [facility] Address [address] [place] [address] Care Team Providers Name Role Phone Darius Enciso MD Primary Care Provider Encounter Details Date Type Department Care Team Description 08/29/2003 Correspondence External to Unknown, Physici an [employer] [address] [place] [address] (Wo rk) Social History Tobacco Use Types [...] on filedocumented in this encounter Care Teams Technical Documentation Specialist Relationship Specialty Start Date End Date Darius Enciso MD PCP - General 06/07/03 11/12/03 [facility] [address] [place] [address] documented as of this encounter
--- OUTSIDE RECORDS SUMMARY | 2021-12-18 12:12 | XMS_ITS | Encounter Summary ---
:1980 Author Organization [facility] Address [address] [place] [address] Care Team Providers Name Role Phone Jose Hood MD Primary Care Provider [phone] Encounter Details Date Type Department Care Team Description 02/12/2004 Correspondence None Unknown, [facility] [address] [place], [place] [id number] (Wo rk) Social History Tobacco Use Types Packs/Day Years Used Date Smoking Tobacco: Never Alcohol Use Standard Drinks/Week Comments Not Asked 0 (1 standard drink = 0.6 oz pure alcoho l) Sex Assigned at Date Recorded Not on file documented as of this encounter Progress Notes Unknown, Physician - 02/12/2004 12:00 AM FINANCIAL ADMINISTRATIVE ASSISTANT documented in this encounter Plan of Treatment Not on filedocumented as of this encounter Visit Diagnoses Not on filedocumented in this encounter Care Teams Learning Support Specialist Relationship Specialty Start Date End Date Jose Hood MD PCP - General 11/13/03 09/15/04 [facility] [place] [address] documented as of this encounter
--- OUTSIDE RECORDS SUMMARY | 2021-12-18 12:13 | XMS_ITS | Encounter Summary ---
:1980 Author Organization [facility] Address [address] [place] [address] Care Team Providers Name Role Phone [facility] Primary Care Provider [phone] Sada Cagle Unavailable [phone] Reason for Visit Mental Health Outpatient (Routine) - Pending Review Specialty Diagnoses / Procedures Referred By Contact Refer red To Contact Behavioral Health Procedures Ur Adult Mh Partial Ur Adult Mh Day Tx MH IOP (6A) [facility] [address], [address] [place], [place] [address] [place], [place] Phone: [phone] Referral ID Status Reason Start Date Expiration Date Visits V isits Requested Authorized [id number] Pending 10/16/2021 10/16/2022 36 23 Review Encounter Details Date Type Department Care Team Description 12/18/2021 Hospital Encounter [facility] [address] [place], [place] [address] [address] [place], [place] [phone] [address] (Work) [phone] Social History Tobacco Use Types Packs/Day Years Used Date Smoking Tobacco: Every Day Alcohol Use Standard Drinks/Week Comments Yes 0 (1 standard drink = 0.6 oz pure alcoho l) Sex Assigned at Date Recorded Not on file documented as of this encounter Miscellaneous Notes Group Note - Sophie Santiago LICSW - 12/18/2021 10:27 AM CDT Process Group Note PATIENT'S NAME: Augustus Ramirez Jr. : 1980 AC[employer]. 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 Reason for Telemedicine Visit: Services only offered telehealth Originating Site (Patient Location): Patient's home Distant Site (Provider Location): [facility] MENTAL HEALTH & ADDICTION SERVICES Consent: [...] Management and Personal Safety. Pt reports feeling anxious and tired following a poor night's sleep. Pt describes this as infrequent, but difficult. We discussed sleep hygiene techniques and he agrees to follow these, if needed. Pt continues with plan to leave the house at least one time daily. We discussed ways to expand this, by ta alek additional small steps and/or having someone accompany him and slowly decrease their involvement. Pt sets goal to begin cleaning the house, in preparation, for relatives visiting. He will use a schedule. He identifies cleaning as a coping skill. Pt feels positive about starting lexapro. He also fe els positive about decreased thc and alcohol use. He is grateful for group, saying I didn't know there was help out there and do not want to continue feeling anxious. Denies safety concerns. Therapeutic Interventions/Treatment Strategies: Psychotherapist [...] alcohol and cannabis . and Last use: yesterday: alcohol. reports decrease in alcoholand weaning off thc. denies an issue with either Mental Status/Behavioral Observations Appearance: Appropriate Eye Contact: Good Psychomotor Behavior: Restless Attitude: Cooperative Orientation: All Speech Rate / Production: Normal Volume: Normal Mood: Anxious Depressed Affect: Worrisome Thought Content: Rumination Thought Form: Coherent Logical Insight: Good Plan: [...] in their treatment plan. ADWOA Self December 18, 2021 documented in this encounter Plan of Treatment Upcoming Encounters Date Type Specialty Care Team Description 12/20/2021 Appointment Behavioral Health Sarai Weaver MD [address] [place], [place] [address] (Wo rk) documented as of this encounter Visit Diagnoses Not on filedocumented in this encounter Additional Health Concerns Assessment Noted Time PHQ-9 Depression Total Score: 14 09/30/2021 8:52 AM CD T documented as of this encounter Care Teams Workforce Planner Relationship Specialty Start Date End Date [facility] Medical PCP - General 09/21/21 [address] [place] [address] [facility] 09/21/21 [address] [address] [place] [address] documented as of this encounter
--- OUTSIDE RECORDS SUMMARY | 2021-12-18 12:13 | XMS_ITS | Encounter Summary ---
:1980 Author Organization [facility] Address [address] [place] [address] Care Team Providers Name Role Phone [facility] Primary Care Provider [phone] Sada Cagle Unavailable [phone] Reason for Visit Mental Health Outpatient (Routine) - Pending Review Specialty Diagnoses / Procedures Referred By Contact Refer red To Contact Behavioral Health Procedures Ur Adult Mh Partial Ur Adult Mh Day Tx MH IOP (6A) [facility] [address], [place], [place] [place], [place] Phone: [phone] Referral ID Status Reason Start Date Expiration Date Visits V isits Requested Authorized [id number] Pending 10/16/2021 10/16/2022 36 23 Review Encounter Details Date Type Department Care Team Description 12/03/2021 Hospital Encounter [facility] Demarco Weaver [facility] Mental Health & MD Omar episode of major Addiction Services [address] depressive disorder [address] without prior episode [address] [place], (H) (Primary Dx) [facility] [id number] Social History Tobacco Use Types Packs/Day [...] Augustus Ramirez Jr. : 1980 ACCT. NUMBER: [id number] DATE OF SERVICE: 12/03/21 START TIME: 11:00 AM END TIME: 11:50 AM RAPID OUTSOLE STITCHER: Roby Tejada LMFT TOPIC: EBP Group: Emotions Management [facility] Adult Mental Health Day Treatment TRACK: [...] a current master individualized treatment plan. See [facility] treatment plan for more information. DENNIS Peterson Group Note - Sophie Santiago LICSW - 12/03/2021 1:05 PM CDT Psychotherapy Group Note PATIENT'S NAME: Augustus Ramirez Jr. : 1980 ACCT. NUMBER: [id number] DATE OF SERVICE: 12/03/21 START TIME: 10:00 AM END TIME: 10:50 AM RAPID OUTSOLE STITCHER: Sophie Santiago LICSW TOPIC: EBP Group: Emotions Management [facility] Adult Mental Health Day Treatment TRACK: 6A Service Modality: Video Visit Telemedicine Visit: The patient's condition can be safely assessed and treated via synchronous audioand visual telemedicine encounter. Reason for Telemedicine Visit: Services only offered telehealth Originating Site (Patient Location): Patient's home Distant Site (Provider Location): [facility] MENTAL HEALTH & ADDICTION SERVICES [...] a current master individualized treatment plan. See [facility] treatment plan for more information. ADWOA Self Group Note - Sophie Santiago LICSW - 12/03/2021 12:06 PM CDT Process Group Note PATIENT'S NAME: Augustus Ramirez Jr. : 1980 ACCT. 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 Reason for Telemedicine Visit: Services only offered telehealth Originating Site (Patient Location): Patient's home Distant Site (Provider Location): [facility] MENTAL HEALTH & ADDICTION SERVICES [...] today. He reports an emotional trip to [place] with his mother who has stage 4 cancer. They spent time with pt's brother, which will likely be the last time, that his mother sees his brother. Pt reports feeling increasingly depressed at times and needing to use his safety plan in [place]. He adds It didn't ruin me. Pt [...] Appointment Behavioral Health Sarai Weaver MD [address], [place] [address] (Wo rk) documented as of this encounter Visit Diagnoses Diagnosis Current moderate episode of major depres sive disorder without prior episode (H) - Primary documented in this encounter Additional Health Concerns Assessment Noted Time PHQ-9 Depression Total Score: 14 09/30/2021 8:52 AM CD T documented as of this encounter Care Teams Residential Insurance Inspector Relationship Specialty Start Date End Date [facility] Medical PCP - General 09/21/21 [address] [place] [address] [facility] 09/21/21 [address] [place] [address] documented as of this encounter
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
--- OUTSIDE RECORDS SUMMARY | 2021-12-18 12:13 | XMS_ITS | Encounter Summary ---
:1980 Author Organization [place] Address [address] [facility] [place] [address] Care Team Providers Name Role Phone [facility] Primary Care Provider [phone] Sada Cagle Unavailable [phone] Reason for Visit Mental Health Outpatient (Routine) - Pending Review Specialty Diagnoses / Procedures Referred By Contact Refer red To Contact Behavioral Health Procedures Ur Adult Mh Partial Ur Adult Mh Day Tx MH IOP (6A) [facility] [address], [place], [place] [address] [address] [place], [place] Phone: [phone] Referral ID Status Reason Start Date Expiration Date Visits V isits Requested Authorized [id number] Pending 10/16/2021 10/16/2022 36 23 Review Encounter Details Date Type Department Care Team Description 12/06/2021 Hospital Encounter [facility] Demarco Weaver [facility] Mental Health & MD Omar episode of major Addiction Services [address] depressive disorder [address] without prior episode [address] [place], (H) (Primary Dx) [facility] [phone] Social History Tobacco Use Types Packs/Day [...] Augustus Ramirez Jr. : 1980 ACCT. NUMBER: [id number] DATE OF SERVICE: 12/06/21 START TIME: 11:00 AM END TIME: 11:50 AM MANAGER COMMUNITY DEVELOPMENT: Sophie Santiago LICSW TOPIC: MH EBP Group: Self-Awareness [facility] Adult Mental Health Day Treatment TRACK: 6A Service Modality: Video Visit Telemedicine Visit: The patient's condition can be safely assessed and treated via synchronous audioand visual telemedicine encounter. Reason for Telemedicine Visit: Services only offered telehealth Originating Site (Patient Location): Patient's home Distant Site (Provider Location): [facility] [...] practice. Patient Session Goals / Objectives: ??? [place] the concept and benefits of gratitude ??? [place] the importance of recognizing accomplishments ??? Identified [...] current master individualized treatment plan. See [facility] treatment plan for more information. ADWOA Self Group Note - Sophie Santiago LICSW - 12/06/2021 10:54 AM CDT Psychoeducation Group Note PATIENT'S NAME: Augustus Ramirez Jr. : 1980 ACCT. NUMBER: [id number] DATE OF SERVICE: 12/06/21 START TIME: 10:00 AM END TIME: 10:50 AM MANAGER COMMUNITY DEVELOPMENT: Sophie Santiago LICSW TOPIC: MH Life Skills Group: Lifestyle Balance and Structure [facility] Adult Mental Health Day Treatment TRACK: 6A Service Modality: Video Visit Telemedicine Visit: The patient's condition can be safely assessed and treated via synchronous audioand visual telemedicine encounter. Reason for Telemedicine Visit: Services only offered telehealth Originating Site (Patient Location): Patient's home Distant Site (Provider Location): [facility] [...] current master individualized treatment plan. See [facility] treatment plan for more information. ADWOA Self Group Note - Sophie Santiago LICSW - 12/06/2021 10:52 AM CDT Process Group Note PATIENT'S NAME: Augustus Ramirez Jr. : 1980 ACCT. 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 Reason for Telemedicine Visit: Services only offered telehealth Originating Site (Patient Location): Patient's home Distant Site (Provider Location): [facility] [...] Appointment Behavioral Health Sarai Weaver MD [address], [place] [phone] (Wo rk) documented as of this encounter Visit Diagnoses Diagnosis Current moderate episode of major depres sive disorder without prior episode (H) - Primary documented in this encounter Additional Health Concerns Assessment Noted Time PHQ-9 Depression Total Score: 14 09/30/2021 8:52 AM CD T documented as of this encounter Care Teams Hr Receptionist Relationship Specialty Start Date End Date [facility] Medical PCP - General 09/21/21 [address] [place], [place] [phone] [facility] 09/21/21 [address] [place] [address] [place] [id number] documented as of this encounter
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
--- OUTSIDE RECORDS SUMMARY | 2021-12-18 12:13 | XMS_ITS | Encounter Summary ---
:1980 [facility] [address] [place] [address] Care Team Providers Name Role Phone Unassigned, Provider Primary Care Provider Unavailable Encounter Details Date Type Department Care Team Description 03/16/2003 Office Visit [facility] Darius Enciso, [facility] Practice [address] [place], [place] [address] [facility] [phone] [place] [address] (Wo rk) Social History Tobacco Use Types Packs/Day Years Used Date Smoking Tobacco: Never Assessed Sex Assigned at Date Recorded Not on file documented as of this encounter Last Filed Vital Signs Vital Sign Reading Time Taken Comments Blood Pressure 112/60 03/16/2003 4:30 PM PUMP SERVICER SUPERVISOR Pulse 80 03/16/2003 4:30 PM PUMP SERVICER SUPERVISOR Temperature 36.4 ??C (97.6 ??F) 03/16/2003 4:30 PM PUMP SERVICER SUPERVISOR Respiratory Rate 20 03/16/2003 4:30 PM PUMP SERVICER SUPERVISOR Oxygen Saturation - - Inhaled Oxygen Concentration - - Weight 67.9 kg (149 lb 12.8 oz) 03/16/2003 4:30 PM PUMP SERVICER SUPERVISOR Height - - Body Mass Index - - documented in this encounter Progress Notes 03/16/2003 4:30 PM PUMP SERVICER SUPERVISOR Augustus Ramirez is here today for midback [...] Tobacco Status reviewed? (see History Social-Substance) -YES public bath attendant offered? -NOT APPLICABLE. Aspirin taken daily? -NO BP was taken on the RIGHT arm. BP cuff size used? -Adult Large Health Education given? -NO. Contact phone number [phone] (home) , alternate phone number. 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 Referred for chiropractic. P cc: SERVICER SUPERVISOR documented in this encounter Plan of Treatment Not on filedocumented as of this encounter Visit Diagnoses Diagnosis Backache, unspecified documented in this encounter Care Teams [employer] Leadership Relationship Specialty Start Date End Date Unassigned, Provider PCP - General 04/05/02 06/06/[address] [place] [address] documented as of this encounter
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
--- OUTSIDE RECORDS SUMMARY | 2021-12-18 12:13 | XMS_ITS | Encounter Summary ---
:1980 Author Organization [employer] Address [address] [facility] [address] Care Team Providers Name Role Phone [facility] Primary Care Provider [phone] Sada Cagle Unavailable [phone] Reason for Visit Mental Health Outpatient (Routine) - Pending Review Specialty Diagnoses / Procedures Referred By Contact Refer red To Contact Behavioral Health Procedures Ur Adult Mh Partial Ur Adult Mh Day Tx MH IOP (6A) [facility] [address], [address] [place], [place] [address] [address] [place], [place] Phone: [phone] Referral ID Status Reason Start Date Expiration Date Visits V isits Requested Authorized [id number] Pending 10/16/2021 10/16/2022 36 23 Review Encounter Details Date Type Department Care Team Description 12/04/2021 Hospital Encounter [facility] Demarco Weaver [facility] Mental Health & MD Omar episode of major Addiction Services [address] depressive disorder [address] without prior episode [id number] [place], (H) (Primary Dx) [facility] [id number] Social History Tobacco Use Types Packs/Day [...] Augustus Ramirez Jr. : 1980 ACCT. NUMBER: [id number] DATE OF SERVICE: 12/04/21 START TIME: 11:00 AM END TIME: 11:50 AM PHARMACY PICKING TECH: Roby Tejada LMFT TOPIC: EBP Group: Coping Skills [facility] Mental [facility] Day Treatment TRACK: 6A NUMBER OF PARTICIPANTS: [...] master individualized treatment plan. See [facility] treatment plan for more information. [facility] Note - Roby Tejada LMFT - 12/04/2021 10:43 PM CDT Psychotherapy Group Note PATIENT'S NAME: Augustus Ramirez Jr. : 1980 ACCT. NUMBER: [id number] DATE OF SERVICE: 12/04/21 START TIME: 10:00 AM END TIME: 10:50 AM PHARMACY PICKING TECH: Roby Tejada LMFT TOPIC: MH EBP Group: Behavioral Activation [facility] Mental Health Day Treatment TRACK: 6A [...] master individualized treatment plan. See [facility] treatment plan for more information. [facility] Note - Sophie Santiago LICSW - 12/04/2021 10:25 AM CDT Process Group Note PATIENT'S NAME: Augustus Ramirez Jr. : 1980 ACCT. 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 Reason for Telemedicine Visit: Services only offered telehealth Originating Site (Patient Location): Patient's home Distant Site (Provider Location): [facility] MENTAL HEALTH & ADDICTION SERVICES [...] Appointment Behavioral Health Sarai Weaver MD [address] [place] [address] (Wo rk) documented as of this encounter Visit Diagnoses Diagnosis Current moderate episode of major depres sive disorder without prior episode (H) - Primary documented in this encounter Additional Health Concerns Assessment Noted Time PHQ-9 Depression Total Score: 14 09/30/2021 8:52 AM CD T documented as of this encounter Care Teams Educational Psychologist Relationship Specialty Start Date End Date [facility] Medical PCP - General 09/21/21 [address] [place] [address] [facility] 09/21/21 [address] [place] [address] documented as of this encounter
--- OUTSIDE RECORDS SUMMARY | 2021-12-18 12:13 | XMS_ITS | Encounter Summary ---
:1980 Author Organization [facility] Address [address] [place] [address] Care Team Providers Name Role Phone Unassigned, Provider Primary Care Provider Unavailable Encounter Details Date Type Department Care Team Description 05/19/2003 Correspondence None Unknown, Physici an [facility] [address] [place] [address] (Wo rk) Social History Tobacco Use Types Packs/Day Years Used Date Smoking Tobacco: Never Alcohol Use Standard Drinks/Week Comments Not Asked 0 (1 standard drink = 0.6 oz pure alcoho l) Sex Assigned at Date Recorded Not on file documented as of this encounter Progress Notes Unknown, Physician - 05/19/2003 12:00 AM INSPECTOR HEALTH CARE FACILITIES documented in this encounter Plan of Treatment Not on filedocumented as of this encounter Visit Diagnoses Not on filedocumented in this encounter Care Teams Prototype Deicer Assembler Relationship Specialty Start Date End Date Unassigned, Provider PCP - General 04/05/02 06/06/03 [address] [place] [address] documented as of this encounter
--- OUTSIDE RECORDS SUMMARY | 2021-12-18 12:13 | XMS_ITS | Clinical Summary ---
:1980 Author Organization [employer] Address [address] [place] [address] Care Team Providers Name Role Phone [facility] Primary Care Provider [phone] Sada Cagle Unavailable [phone] Allergies Active Allergy Reactions Severity Noted Date Comments No Known Drug Allergies 02/26/2000 Medications Medication Sig Dispensed Refills Start Date End Date Status amphetamine-dextroamph Take 20 mg by 0 Active etamine (ADDERALL) 20 mouth 3 times MG tablet daily cetirizine (ZYRTEC) 10 Take 10 mg by 0 Active MG tablet mouth daily Ascorbic Acid (VITAMIN Take 500 mg by 0 Active C) 500 MG CAPS mouth daily Vitamin D3 Take 125 mcg by 0 Act zully (CHOLECALCIFEROL) 125 mouth daily MCG (5000 UT) tablet escitalopram (LEXAPRO) Take 0.5 tablets 30 tablet 0 12/11/2021 01/10/2022 Active 10 MG (5 mg) by mouth tabletIndications: daily for 4 Current moderate days, THEN 1 episode of major tablet (10 mg) depressive disorder daily for 26 without prior episode days. (H) Active Problems Problem Noted Date Current moderate episode of major depressive disorder without prior 10/02/2021 episode Encounters Date Type Specialty Care Team Description 12/18/2021 [facility], Arrived Encounter MD Omar 12/17/2021 [facility], Current mo derate Encounter MD Omar episode of anthony r depressive diso rder without prior episode (H) (Primary Dx) 12/13/2021 [facility], Current mo derate Encounter MD Omar episode of anthony r depressive diso rder without prior episode (H) (Primary Dx) 12/11/2021 [facility], Current mo derate Encounter MD Omar episode of anthony r depressive diso rder without prior episode (H) (Primary Dx) 12/11/2021 [facility], Current mo derate Encounter MD Omar episode of anthony r depressive diso rder without prior episode (H) (Primary Dx) 12/06/2021 [facility], Current mo derate Encounter MD Omar episode of anthony r depressive diso rder without prior episode (H) (Primary Dx) 12/05/2021 Telephone [facility] Sophie Santiago, APARTMENT RENTAL CLERK 12/04/2021 [facility], Current mo derate Encounter MD Omar episode of anthony r depressive diso rder without prior episode (H) (Primary Dx) 12/03/2021 [facility], Current mo derate Encounter MD Omar episode of anthony r depressive diso rder without prior episode (H) (Primary Dx) 11/29/2021 [facility], Current mo derate Encounter MD Omar episode of anthony r depressive diso rder without prior episode (H) (Primary Dx) 11/27/2021 [facility], Current mo derate Encounter MD Omar episode of anthony r depressive diso rder without prior episode (H) (Primary Dx) 11/26/2021 [facility], No Show Encounter MD Omar 11/22/2021 [facility], Current mo derate Encounter MD Omar episode of anthony r depressive diso rder without prior episode (H) (Primary Dx) 11/22/2021 Telephone [facility] Sophie Santiago, APARTMENT RENTAL CLERK 11/20/2021 [facility], Current mo derate Encounter MD Omar episode of anthony r depressive diso rder without prior episode (H) (Primary Dx) 11/19/2021 [facility], Current mo derate Encounter MD Omar episode of anthoyn r depressive diso rder without prior episode (H) (Primary Dx) 11/15/2021 [facility], Current mo derate Encounter MD Omar episode of anthony r depressive diso rder without prior episode (H) (Primary Dx) 11/13/2021 [facility], Current mo derate Encounter MD Omar episode of anthony r depressive diso rder without prior episode (H) (Primary Dx) 11/13/2021 [facility], Current mo derate Encounter MD Omar episode of anthony r depressive diso rder without prior episode (H) (Primary Dx) 11/12/2021 [facility], Encounter MD Omar 11/08/2021 [facility], Encounter MD Omar 11/06/2021 [facility], Current mo derate Encounter MD Omar episode of anthony r depressive diso rder without prior episode (H) (Primary Dx) 11/05/2021 [facility], Encounter MD Omar 11/01/2021 [facility], Current mo derate Encounter MD Omar episode of anthony r depressive diso rder without prior episode (H) (Primary Dx) 10/30/2021 [facility], Current mo derate Encounter MD Omar episode of anthony r depressive diso rder without prior episode (H) (Primary Dx) 10/29/2021 [facility], Current mo derate Encounter MD Omar episode of anthony r depressive diso rder without prior episode (H) (Primary Dx) 10/25/2021 [facility], Current mo derate Encounter MD Omar episode of anthony r depressive diso rder without prior episode (H) (Primary Dx) 10/23/2021 [facility], Current mo derate Encounter MD Omar episode of anthony r depressive diso rder without prior episode (H) (Primary Dx) 10/22/2021 [facility], Current mo derate Encounter MD Omar episode of anthony r depressive diso rder without prior episode (H) (Primary Dx) 10/18/2021 [facility], Current mo derate Encounter MD Omar episode of anthony r depressive diso rder without prior episode (H) (Primary Dx) 10/16/2021 [facility], Current mo derate Encounter MD Omar episode of anthony r depressive diso rder without prior episode (H) (Primary Dx) 10/16/2021 [facility], Current mo derate Encounter MD Omar episode of anthony r depressive diso rder without prior episode (H) (Primary Dx) 10/15/2021 [facility], Current mo derreggie Encounter MD Omar episode of anthony r depressive diso rder without prior episode (H) (Primary Dx) 10/14/2021 [facility], Current mo derate Encounter MD Omar episode of anthony r depressive diso rder without prior episode (H) (Primary Dx) 10/14/2021 Telephone Belkis Jo, RN 10/11/2021 [facility], Current mo derreggie Encounter MD Omar episode of anthony r depressive diso rder without prior episode (H) (Primary Dx) 10/10/2021 [facility], Current mo [place] Encounter MD Omar episode of anthony r depressive diso rder without prior episode (H) (Primary Dx) 10/10/2021 [facility], Current mo derate Encounter MD Omar episode of anthony r depressive diso rder without prior episode (H) (Primary Dx) 10/09/2021 [facility], Current mo [place] Encounter MD Omar episode of anthony r depressive diso rder without prior episode (H) (Primary Dx) 10/09/2021 Telephone [facility] Belkis Weller, RN 10/08/2021 [facility], Current mo derreggie Encounter MD Omar episode of anthony r depressive diso rder without prior episode (H) (Primary Dx) 10/07/2021 [facility], Current mo derreggie Encounter MD Omar episode of anthony r depressive diso rder without prior episode (H) (Primary Dx) 10/04/2021 [facility], Current mo [place] Encounter MD Omar episode of anthony r depressive diso rder without prior episode (H) (Primary Dx) 10/03/2021 [facility], Current mo [place] Encounter MD Omar episode of anthony r depressive diso rder without prior episode (H) (Primary Dx) 10/02/2021 [facility], Current se yamilet Encounter MD Omar episode of anthony r depressive diso rder without psychot ic features withou t prior episode ( H) (Primary Dx) 10/02/2021 Hospital Behavioral Charley Weaver, Encounter MD Omar 10/02/2021 Telephone Belkis Jo RN 10/01/2021 Telephone Belkis Jo RN 09/30/2021 [facility] Treatment Behavioral Charley Weaver, MDD (anthony Nelson MD depressive McNall, Sophie, disorder) ( Primary APARTMENT RENTAL CLERK Dx) 09/30/2021 Telephone Generic, Behavioral Intake, 09/23/2021 Telephone Generic, MH/CD Inpatient Behavioral Intake, 09/22/2021 Telephone Generic, MH/CD Inpatient Behavioral Intake, 09/22/2021 Telephone Generic, MH/CD Inpatient Behavioral Intake, 09/21/2021 - Emergency EMERGENCY MEDICINE , [place] Suicida l ideation 09/23/2021 MD Yazan Espino, MD Parvez [place], MD Summer Altamirano, Liza Tang MD [facility], MD Brook Cowart, MD Mario Ferrell, Omar Birmingham MD 09/21/2021 Telephone Generic, Behavioral Intake, 09/21/2021 Travel from Last 3 Months Social [...] 81.6 kg (180 lb) 01/16/2013 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 LEVER TENDER Height - - Body Mass Index - - Plan of Treatment Upcoming Encounters Date Type Specialty Care Team Description 12/20/2021 Appointment Sarai Galindo MD [address], [place] [address] (Wo rk) Health Maintenance Due Date Last Done Comments ADVANCE CARE PLANNING 1980 ANNUAL REVIEW OF HM ORDERS 1980 DEPRESSION ACTION PLAN 1980 HEPATITIS B IMMUNIZATION (1 1980 of 3 - 3-dose series) COVID-19 Vaccine (#1) 1980 Pneumococcal Vaccine: 1986 Pediatrics (0 to 5 Years) and At-Risk Patients (6 to 64 Years) (1 - PCV) HIV SCREENING 1995 HEPATITIS C SCREENING 1998 LIPID 2015 DTAP/TDAP/TD IMMUNIZATION (4 07/07/2021 07/08/2011, - Td or Tdap) 04/30/2000, 01/05/1996 INFLUENZA VACCINE (#1) 2021 12/04/2007, 12/04/2007 YEARLY PREVENTIVE VISIT 03/11/2022 03/11/2021 PHQ-9 04/02/2022 09/30/2021 IPV IMMUNIZATION Aged Out No longer eligi [...] platelets and differential (09/23/2021 10:07 AM CDT) [facility] Method Time Signature WBC Count 8.2 [...] Address City/State/ZIP Code [place] [address] Care Lab [address] Lab (1st floor, no room number) (ABNORMAL) Comprehensive metabolic panel (09/23/2021 10:07 AM CDT) [facility] Method Time Signature Sodium 136 133 [...] and gender (Nitesh et al., NEJM, DOI: 10.1056/YLIUwt9933102) Specimen Anatomical Collection Method / Collection Time Recei joaquim Time (Source) Location / Volume Laterality Blood STRUCTURE OF LEFT Venipuncture / 09/23/2021 10:07 08/31 UPPER LIMB / Unknown AM CDT 10:11 AM CDT Unknown Omar Martin MD LAB - BLOOD ORD ERABLES Performing Organization Address City/State/ZIP Code [place] [phone] Care Lab [address] Lab (1st floor, no room number) Ethyl Alcohol Level (09/23/2021 10:07 AM CDT) P athologist Signature Alcohol ethyl <0.01 <=0.01 g/dL 09/23/2021 LABORATORY 10:41 AM CDT Specimen Anatomical Collection Method / Collection Time Recei joaquim Time (Source) Location / Volume Laterality Blood STRUCTURE OF LEFT Venipuncture / 09/23/2021 10:07 07/2 06/2021 UPPER LIMB / Unknown AM CDT 10:11 AM CDT Unknown Omar Martin MD LAB - BLOOD ORD ERABLES Performing Organization Address City/[facility]/[place] [phone] Care Lab [address] Lab (1st floor, no room number) (ABNORMAL) Drug abuse screen 1 urine (ED) (09/21/2021 6:20 PM CDT) [facility] Method Time Signature Amphetamines Screen Screen [...] LAB - URINE ORDERABLES Performing Organization Address City/[facility]/[place] [phone] Care Lab [address] Lab (1st floor, no room number) Asymptomatic COVID-19 Virus (Coronavirus) by PCR Nasopharyngeal (09/21/2021 12:49 PM CDT) [facility] Time Signature SARS CoV2 PCR Negative Negative [...] the Xpert Xpress SARS-CoV-2 Assay on the [employer] Instrument Systems. A dditional information about this [...] COVID-19. This test was validated by the [facility]. This laboratory is certified under the Clinical Laboratory Improvement Amendments of 1988 (CLIA-88) as qualified to perform high complexity laboratory testing. Darien Vargas MD LAB - MICRO GENERAL ORDERABL ES Performing Organization Address City/State/ZIP Code [place] [phone] Care Lab [address] Lab (1st floor, no room number) from Last 3 Months Insurance Payer Benefit Plan / Subscriber ID Effective Phone Address T ype Group Dates [facility] [id number] 2021-Prese [phone] [address] [facility] [address] [place] [address] [facility] [id number] 2021-Prese [address] [place] [address] [phone] (Home) [place] [id number] Augustus Ramirez Behavioral Self 1980 [phone] (Home) [place] [id number] Care Teams Policy And Planning Manager Relationship Specialty Start Date End Date [facility] PCP - General 09/21/21 [address] [address] [place], [place] [phone] [facility] 09/21/21 [address] [place] [place] [address]
--- OUTSIDE RECORDS SUMMARY | 2021-12-18 12:13 | XMS_ITS | Encounter Summary ---
:1980 Author Organization [place] Address [address] [facility] [address] Care Team Providers Name Role Phone [facility] Primary Care Provider [phone] Sada Cagle Unavailable [phone] Reason for Visit Mental Health Outpatient (Routine) - Pending Review Specialty Diagnoses / Procedures Referred By Contact Refer red To Contact Behavioral Health Procedures Ur Adult Mh Partial Ur Adult Mh Day Tx MH IOP (6A) [facility] [address], [address] [place], [place] [address] [address] [place], [place] Phone: [phone] Referral ID Status Reason Start Date Expiration Date Visits V isits Requested Authorized [id number] Pending 10/16/2021 10/16/2022 36 23 Review Encounter Details Date Type Department Care Team Description 12/17/[address] [facility] Demarco Weaver [facility] Mental Health & MD Omar episode of major Addiction Services [address] depressive disorder [address] without prior episode [address] [place], (H) (Primary Dx) [facility] [id number] [phone] Social History Tobacco Use Types Packs/Day Years Used Date Smoking Tobacco: Every Day Alcohol Use Standard Drinks/Week Comments Yes 0 (1 standard drink = 0.6 oz pure alcoho l) Sex Assigned at Date Recorded Not on file documented as of this encounter Miscellaneous Notes Group Note - Roby Tejada LMFT - 12/17/2021 4:34 PM CDT Psychoeducation Group Note PATIENT'S NAME: Augustus Ramirez Jr. : 1980 [employer]. NUMBER: [id number] DATE OF SERVICE: 12/17/21 START TIME: 11:00 AM END TIME: 11:50 AM TRANSIT OPERATOR: Roby Tejada LMFT TOPIC: Wellness Group: Mental Health Maintenance [facility] Adult Mental Health Day [...] would like the video invitation sent by: [email or web address] Mode of Communication: Video Conference via Medical [...] current master individualized treatment plan. See [facility] treatment plan for more information. DENNIS Peterson Group Note - Sophie Santiago LICSW - 12/17/2021 4:11 PM CDT Psychotherapy Group Note [facility]'S NAME: [facility] 1980 [id number] DATE OF SERVICE: 12/17/21 START TIME: 10:00 AM END TIME: 10:50 AM TRANSIT OPERATOR: Sophie Santiago LICSW TOPIC: MH EBP Group: Relationship Skills [facility] Adult Mental Health Day Treatment TRACK: 6A Service Modality: Video Visit Telemedicine Visit: The patient's condition can be safely assessed and treated via synchronous audioand visual telemedicine encounter. Reason for Telemedicine Visit: Services only offered telehealth Originating Site (Patient Location): Patient's home Distant Site (Provider Location): [facility] MENTAL HEALTH & ADDICTION [...] issues and identified plan to improve boundaries Patient Participation / Response: Fully participated with the group by sharing personal reflections / insights and openly received / provided feedback with other participants. Demonstrated understanding of topics discussed through group discussion and participation, Demonstrated understanding of relationship skills and communication skills and Identified / Expressed personalreadiness to incorporate effective communication skills Treatment Plan: Patient has a current master individualized treatment plan. See [facility] treatment plan for more information. ADWOA Self Group Note - Sophie Santiago LICSW - 12/17/2021 2:13 PM CDT Process Group Note PATIENT'S NAME: Augustus Ramirez Jr. : 1980 [employer]. NUMBER: [id number] DATE OF SERVICE: 12/17/21 START TIME: 9:00 AM END TIME: 9:50 AM TRANSIT OPERATOR: Sophie Santiago LICSW TOPIC: Process Group [...] Location): Patient's home Distant Site (Provider Location): [facility] MENTAL HEALTH & ADDICTION [...] Personal Safety. Pt reports feeling anxious, depressed, irritable. He reports a panic attack when out with friends onFriday night at a casino. Pt left the casino alone and drove home feeling ruminative and hopeless. He identifies self-talk as: Just get home. He identifies coping skills as distraction and checking the facts over the weekend. He is grateful for his kids and . Denies safety concerns, but reports feeling hopeless on Thursday. Therapeutic Interventions/Treatment Strategies: Psychotherapist offered support, [...] in the body and Assisted patient in identifying 1-2 healthy distraction skills to reduce overall distress and Symptoms Management: Promoted understanding of their diagnoses and how it impacts their functioning. Assessment: Patient response: Patient responded to session by accepting feedback, giving feedback, listening, focusing on goals, being attentive and accepting support Possible barriers to participation / learning include: and no barriers identified Health Issues: None reported Substance Use Review: Substance Use: some drinks Mental Status/Behavioral Observations Appearance: Appropriate Eye Contact: Good Psychomotor Behavior: Normal Attitude: Cooperative Orientation: All Speech Rate / Production: Normal Volume: Normal Mood: Anxious Depressed Irritable Fearful Affect: Worrisome Thought Content: Rumination Thought [...] in their treatment plan. ADWOA Self December 17, 2021 documented in this encounter Plan of Treatment Upcoming Encounters Date Type Specialty Care Team Description 12/20/2021 Appointment Behavioral Health Sarai Weaver MD [address] [address] (Wo rk) documented as of this encounter Visit Diagnoses Diagnosis Current moderate episode of major depres sive disorder without prior episode (H) - Primary documented in this encounter Additional Health Concerns Assessment Noted Time PHQ-9 Depression Total Score: 14 09/30/2021 8:52 AM CD T documented as of this encounter Care Teams Outside Sales Executive Relationship Specialty Start Date End Date [facility] Medical PCP - General 09/21/21 [address] [place] [address] S[facility] 09/21/21 [address] [place] [address] documented as of this encounter
--- OUTSIDE RECORDS SUMMARY | 2021-12-18 12:13 | XMS_ITS | Encounter Summary ---
:1980 Author Organization [facility] Address [address] [place] [address] Care Team Providers Name Role Phone Unassigned, Provider Primary Care Provider Unavailable Encounter Details Date Type Department Care Team Description 03/16/2003 Correspondence None Unknown, Physici an [facility] [address] [place] [address] (Wo rk) Social History Tobacco Use Types Packs/Day Years Used Date Smoking Tobacco: Never Assessed Sex Assigned at Date Recorded Not on file documented as of this encounter Progress Notes Unknown, Physician - 03/16/2003 12:00 AM APPLE TURNER documented in this encounter Plan of Treatment Not on filedocumented as of this encounter Visit Diagnoses Not on filedocumented in this encounter Care Teams Geospatial Imagery Intelligence Analyst Relationship Specialty Start Date End Date Unassigned, Provider PCP - General 04/05/02 [address] [place] [address] documented as of this encounter
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
--- OUTSIDE RECORDS SUMMARY | 2021-12-18 12:13 | XMS_ITS | Encounter Summary ---
:1980 Author [facility] Address [address] [place] [address] Care Team Providers Name Role Phone Unassigned, Provider Primary Care Provider Unavailable Encounter Details Date Type Department Care Team Description 05/22/2003 Orders Only External to Unknown, Physici an [address] [place], [place] [address] (Wo rk) Social History Tobacco Use Types [...] 12:00 AM CSTAssociated Order(s): MRI SPINE SC RACT ASSISTANT documented in this encounter Plan of Treatment Not on filedocumented as of this encounter Procedures Procedure Name Priority Date/Time Associated Diagnosis Comme nts MRI SPINE SC 05/22/2003 12:00 AM Results for this CONTRACT ASSISTANT procedure are i n the results section. MRI SPINE SC 05/22/2003 12:00 AM Results for this CONTRACT ASSISTANT procedure are i n the results section. CT THRC SPI C-MATRL 05/22/2003 Results for this procedure are i n the results section. documented in this encounter Results MRI SPINE SC (05/22/2003 12:00 AM CONTRACT ASSISTANT) Anatomical Region Laterality Modality Other Narrative 05/22/2003 12:00 AM CONTRACT ASSISTANT This result has an attachment that is no t available. Ordered by an unspecified provider. Transcriptions Darius Enciso - 05/22/2003 12:00 A M CONTRACT ASSISTANT Physician Unknown DUMMY/OTHER/AR MRI SPINE SC (05/22/2003 12:00 AM CONTRACT ASSISTANT) Anatomical Region Laterality Modality Other Narrative 05/22/2003 12:00 AM CONTRACT ASSISTANT This result has an attachment that is no t available. Ordered by an unspecified provider. Transcriptions Unknown, Physician - 05/22/2003 12:00 AM CONTRACT ASSISTANT Physician Unknown DUMMY/OTHER/AR documented in this encounter Visit Diagnoses Not on filedocumented in this encounter Care Teams Liquid Waste Treatment Plant Operator Relationship Specialty Start Date End Date Unassigned, Provider PCP - General 04/05/02 06/06/[address] [place] [address] documented as of this encounter
--- OUTSIDE RECORDS SUMMARY | 2021-12-18 12:13 | XMS_ITS | Encounter Summary ---
:1980 Author Organization [place] Address [address] [facility] [place] [address] Care Team Providers Name Role Phone [facility] Primary Care Provider [phone] Sada Cagle Unavailable Reason for Visit Mental Health Outpatient (Routine) - Pending Review Specialty Diagnoses / Procedures Referred By Contact Refer red To Contact Behavioral Health Procedures Ur Adult Mh Partial Ur Adult Mh Day Tx MH IOP (6A) [facility] [address], [address] [place], [place] [address] [address] [place], [place] Phone: [phone] Referral ID Status Reason Start Date Expiration Date Visits V isits Requested Authorized [id number] Pending 10/16/2021 10/16/2022 36 23 Review Encounter Details Date Type Department Care Team Description 11/29/[address] [facility] & MD Omar episode of major Addiction Services [address] depressive disorder [address] without prior episode [address] [place], (H) (Primary Dx) [facility] [phone] Social History Tobacco Use Types Packs/Day [...] 12/20/2021 Appointment Behavioral Health Sarai Weaver MD [address], [place] [address] (Wo rk) documented as of this encounter Visit Diagnoses Diagnosis Current moderate episode of major depres sive disorder without prior episode (H) - Primary documented in this encounter Additional Health Concerns Assessment Noted Time PHQ-9 Depression Total Score: 14 09/30/2021 8:52 AM CD T documented as of this encounter Care Teams Insurance Agent Relationship Specialty Start Date End Date [facility] Medical PCP - General 09/21/21 [address] [address] [place], [place] [phone] [facility] 09/21/21 [address] [place] [address] documented as of this encounter
--- OUTSIDE RECORDS SUMMARY | 2021-12-18 12:13 | XMS_ITS | Encounter Summary ---
:1980 Author Organization [place] Address [address] [facility] [place] [address] Care Team Providers Name Role Phone [facility] Primary Care Provider [phone] Sada Cagle Unavailable [phone] Encounter Details Date Type Department Care Team Description 12/05/[address] [facility] Sophie Santiago [facility] [address] [place] [address] [facility] [address] [place] [address] [place], [place] [address] [phone] Social History Tobacco Use Types Packs/Day Years Used Date Smoking Tobacco: Every Day Alcohol Use Standard Drinks/Week Comments Yes 0 (1 standard drink = 0.6 oz pure alcoho l) Sex Assigned at Date Recorded Not on file documented as of this encounter Miscellaneous Notes Telephone Encounter - Gen Fischer - 12/09/2021 11:39 AM CDT Pt scheduled to meet with Dr. Weaver for program provider visit on 12/11 at 10:30am. Telephone Encounter - Gen Fischer - 12/05/2021 11:50 AM CDT Left vm for pt to call program line ([phone]) to schedule program provider visit. documented in this encounter Plan of Treatment Upcoming Encounters Date Type Specialty Care Team Description 12/20/2021 Appointment Behavioral Health Sarai Weaver MD [address] [place], [place] [address] (Wo rk) documented as of this encounter Visit Diagnoses Not on filedocumented in this encounter Additional Health Concerns Assessment Noted Time PHQ-9 Depression Total Score: 14 09/30/2021 8:52 AM CD T documented as of this encounter Care Teams Tire Buster Relationship Specialty Start Date End Date [facility] PCP - General 09/21/21 [address] [facility] [place] [phone] [facility] 09/21/21 [address] [place] [address] documented as of this encounter
--- OUTSIDE RECORDS SUMMARY | 2021-12-18 12:14 | XMS_ITS | Encounter Summary ---
:1980 Author Organization [place] Address [facility] [place] [address] Care Team Providers Name Role Phone [facility] Primary Care Provider [phone] Sada Cagle Unavailable [phone] Encounter Details Date Type Department Care Team Description 10/09/2021 Telephone [facility] Doc Leonard RN & Addiction Services [place] [address], [place] [address] [place], [place] [phone] Social History Tobacco Use [...] 12/20/2021 Appointment Behavioral Health Sarai Weaver MD [address] [place] [address] (Wo rk) documented as of this encounter Visit Diagnoses Not on filedocumented in this encounter Additional Health Concerns Assessment Noted Time PHQ-9 Depression Total Score: 14 09/30/2021 8:52 AM CD T documented as of this encounter Care Teams Supply Chain Tech Relationship Specialty Start Date End Date [facility] PCP - General 09/21/21 [address] [address] Iglesias [place], [place] [phone] [facility] 09/21/21 [address] [place] [address] [place] [address] documented as of this encounter
--- OUTSIDE RECORDS SUMMARY | 2021-12-18 12:14 | XMS_ITS | Encounter Summary ---
:1980 Author Organization [place] Address [address] [place] [address] Care Team Providers Name Role Phone [facility] Primary Care Provider [phone] Sada Cagle Unavailable [phone] Reason for Visit Mental Health Outpatient (Routine) - Pending Review Specialty Diagnoses / Procedures Referred By Contact Refer red To Contact Behavioral Health Procedures Ur Adult Mh Partial Ur Adult Mh Day Tx MH IOP (6A) [facility] [address], [address] [place], [place] [address] [address] [place], [place] Phone: [phone] Referral ID Status Reason Start Date Expiration Date Visits V isits Requested Authorized [id number] Pending 10/16/2021 10/16/2022 36 23 Review Encounter Details Date Type Department Care Team Description 11/06/2021 Hospital Encounter [facility] Demarco Weaver [facility] Mental [facility] & MD Omar episode of major Addiction Services [address] depressive disorder [address] without prior episode [address] [place], (H) (Primary Dx) [facility] [id number] Social History Tobacco Use Types Packs/Day [...] Augustus Ramirez Jr. : 1980 AC[facility]. NUMBER: [id number] DATE OF SERVICE: 11/06/21 START TIME: 11:00 AM END TIME: 11:50 AM FACILITIES COORDINATOR: Roby Tejada LMFT TOPIC: MH EBP Group: Relationship Skills [facility] Adult Mental Health Day Treatment TRACK: 6A [...] a current master individualized treatment plan. See [facility] treatment plan for more information. [facility] Note - Roby Tejada LMFT - 11/06/2021 4:08 PM CDT Psychotherapy Group Note PATIENT'S NAME: Augustus Ramirez Jr. : 1980 ACCT. NUMBER: [id number] DATE OF SERVICE: 11/06/21 START TIME: 10:00 AM END TIME: 10:50 AM FACILITIES COORDINATOR: Roby Tejada LMFT TOPIC: EBP Group: Relationship Skills [facility] Adult Mental Health Day Treatment TRACK: 6A [...] a current master individualized treatment plan. See [facility] treatment plan for more information. [facility] Note - Sophie Santiago LICSW - 11/06/2021 10:40 AM CDT Process Group Note PAT[facility]'S NAME: [facility] 1980 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 Reason for Telemedicine Visit: Services only offered telehealth Originating Site (Patient Location): Patient's home Distant Site (Provider Location): [facility]: [facility] Consent: The [...] activities. He is looking forward to the [employer]. Denies safety concerns. Therapeutic Interventions/Treatment Strategies: [...] Care Team Description 12/20/2021 Appointment Behavioral Health [facility] MD alexei [address] [place], [place] [address] (Wo rk) documented as of this encounter Visit Diagnoses Diagnosis Current moderate episode of major depres sive disorder without prior episode (H) - Primary documented in this encounter Additional Health Concerns Assessment Noted Time PHQ-9 Depression Total Score: 14 09/30/2021 8:52 AM CD T documented as of this encounter Care Teams [employer] Relationship Specialty Start Date End Date [facility] Medical PCP - General 09/21/21 [address] [place] [address] [facility] 09/21/21 [address] [place] [address] [place] [address] documented as of this encounter
--- OUTSIDE RECORDS SUMMARY | 2021-12-18 12:14 | XMS_ITS | Encounter Summary ---
:1980 Author Organization [place] Address [address] [place] [place] [address] Care Team Providers Name Role Phone [facility] Primary Care Provider [phone] Sada Cagle Unavailable [phone] Reason for Visit Mental Health Outpatient (Routine) - Pending Review Specialty Diagnoses / Procedures Referred By Contact Refer red To Contact Behavioral Health Procedures Ur Adult Mh Partial Ur Adult Mh Day Tx MH IOP (6A) [facility] [address], [address] [place], [place] [address] [place], [place] Phone: [phone] Referral ID Status Reason Start Date Expiration Date Visits V isits Requested Authorized [id number] Pending 10/16/2021 10/16/2022 36 23 Review Encounter Details Date Type Department Care Team Description 11/15/2021 Hospital Encounter [facility] Demarco Weaver [facility] Mental [facility] & MD Omar episode of major Addiction Services [address] depressive disorder [address] without prior episode [address] [place], (H) (Primary Dx) [facility] [id number] Social History Tobacco Use Types Packs/Day [...] Augustus Ramirez Jr. : 1980 ACCT. NUMBER: [id number] DATE OF SERVICE: 11/15/21 START TIME: 11:00 AM END TIME: 11:50 AM PLATE TAKE OUT WORKER: Sophie Santiago LICSW TOPIC: MH EBP Group: Coping Skills [facility] Adult Mental Health Day Treatment TRACK: 6A Telemedicine Visit: The patient's condition can be safely assessed and treated via synchronous audioand visual telemedicine encounter. Reason for Telemedicine Visit: Services only offered telehealth Originating Site (Patient Location): Patient's home Distant Site (Provider Location): [facility]: [facility] Consent: The [...] a current master individualized treatment plan. See [facility] treatment plan for more information. [facility] Note - Sophie Santiago LICSW - 11/15/2021 10:56 AM CDT Psychotherapy Group Note PATIENT'S NAME: Augustus Ramirez Jr. : 1980 ACCT. NUMBER: [id number] DATE OF SERVICE: 11/15/21 START TIME: 10:00 AM END TIME: 10:50 AM PLATE TAKE OUT WORKER: Sophie Santiago LICSW TOPIC: EBP Group: Emotions Management [facility] Adult Mental Health Day Treatment TRACK: 6A Telemedicine Visit: The patient's condition can be safely assessed and treated via synchronous audioand visual telemedicine encounter. Reason for Telemedicine Visit: Services only offered telehealth Originating Site (Patient Location): Patient's home Distant Site (Provider Location): [facility]: [facility] Consent: The [...] a current master individualized treatment plan. See [facility] treatment plan for more information. [facility] Self Group Note - Sophie Santiago LICSW - 11/15/2021 10:55 AM CDT Process Group Note PATIENT'S NAME: Augustus Ramirez Jr. : 1980 ACCT. 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 Reason for Telemedicine Visit: Services only offered telehealth Originating Site (Patient Location): Patient's home Distant Site (Provider Location): [facility]: [facility] Consent: The [...] He feels proud of going to the [employer] store independently and taking his mom to [...] Health Sarai Weaver MD [address] [place], [place] [address] (Wo rk) documented as of this encounter Visit Diagnoses Diagnosis Current moderate episode of major depres sive disorder without prior episode (H) - Primary documented in this encounter Additional Health Concerns Assessment Noted Time PHQ-9 Depression Total Score: 14 09/30/2021 8:52 AM CD T documented as of this encounter Care Teams Glass Glazier Relationship Specialty Start Date End Date [facility] Medical PCP - General 09/21/21 [address] [place] [address] S[facility] 09/21/21 [address] [place] [address] [place] [address] documented as of this encounter
--- OUTSIDE RECORDS SUMMARY | 2021-12-18 12:14 | XMS_ITS | Encounter Summary ---
:1980 Author Organization [place] Address [facility]. [address] Care Team Providers Name Role Phone [facility] Primary Care Provider [phone] Sada Cagle Unavailable [phone] Encounter Details Date Type Department Care Team Description 10/14/2021 Telephone [facility] Doc Leonard RN & Addiction Services [place] [address], [phone] Social History Tobacco Use Types [...] 12/20/2021 Appointment Behavioral Health Sarai Weaver MD [address] [place] [address] (Wo rk) documented as of this encounter Visit Diagnoses Not on filedocumented in this encounter Additional Health Concerns Assessment Noted Time PHQ-9 Depression Total Score: 14 09/30/2021 8:52 AM CD T documented as of this encounter Care Teams Reference Assistant Relationship Specialty Start Date End Date [facility] PCP - General 09/21/21 [address] [address] [place], [place] [phone] [facility] 09/21/21 [address] [place] [address] [place] [address] documented as of this encounter
--- OUTSIDE RECORDS SUMMARY | 2021-12-18 12:14 | XMS_ITS | Encounter Summary ---
:1980 Author Organization [place] Address [address] [facility] [place] [address] Care Team Providers Name Role Phone [facility] Primary Care Provider [phone] Sada Cagle Unavailable [phone] Reason for Visit Mental Health Outpatient (Routine) - Pending Review Specialty Diagnoses / Procedures Referred By Contact Refer red To Contact Behavioral Health Procedures Ur Adult Mh Partial Ur Adult Mh Day Tx MH IOP (6A) [facility] [address], [address] [place], [place] [place], [place] Phone: [phone] Referral ID Status Reason Start Date Expiration Date Visits V isits Requested Authorized [id number] Pending 10/16/2021 10/16/2022 36 23 Review Encounter Details Date Type Department Care Team Description 10/22/[address] [facility] Demarco Weaver [facility] Mental Health & MD Omar episode of major Addiction Services [address] depressive disorder [address] without prior episode [address] [place], (H) (Primary Dx) [facility] [phone] Social History Tobacco Use Types Packs/Day [...] Augustus Ramirez Jr. : 1980 ACCT. NUMBER: [id number] DATE OF SERVICE: 10/22/21 START TIME: 11:00 AM END TIME: 11:50 AM INSTRUMENT LENS INSPECTOR: Roby Tejada LMFT TOPIC: EBP Group: Behavioral Activation [facility] Adult Mental Health Day Treatment [...] Augustus Ramirez Jr. : 1980 ACCT. NUMBER: [id number] DATE OF SERVICE: 10/22/21 START TIME: 10:00 AM END TIME: 10:50 AM INSTRUMENT LENS INSPECTOR: Dania Rayo LICSW TOPIC: MH EBP Group: [...] applicable laws and regulations related to telemedicine. [facility] Mental Health Day Treatment TRACK: [...] weekly review of the patient's progress. See [facility] treatment plan for progress / updates on goals and plan. [facility] Note - Italia Alves LGSW - 10/22/2021 7:58 AM CDT Process Group Note PATIENT'S NAME: [facility] 1980 [id number] DATE OF SERVICE: 10/22/21 START TIME: 9:00 AM END TIME: 9:50 AM INSTRUMENT LENS INSPECTOR: Italia Alves LGSW TOPIC: Process Group Diagnoses: 296.32 (F33.1) Major Depressive Disorder, Recurrent Episode, Moderate, With anxious distress Alcohol Use Disorder 303.90 (F10.20) Moderate; 305.20 (F12.10) Cannabis Use Disorder Mild Provisional Diagnosis: Attention-Deficit/Hyperactivity Disorder 314.01 (F90.2) Combined presentationas evidenced by patient's report [facility] Mental Health Day Treatment TRACK: [...] been reviewed and approved by me, FERNANDO Herrera LICSW, in accordance with the requirements for Clinical Supervision of Outpatient Mental Health Services. FERNANDO Herrera LICSW 10/22/2021 documented in this encounter Plan of Treatment Upcoming Encounters Date Type Specialty Care Team Description 12/20/2021 Appointment Behavioral Health [place], [place] MD alexei [address] [place], [place] [address] (Wo rk) documented as of this encounter Visit Diagnoses Diagnosis Current moderate episode of major depres sive disorder without prior episode (H) - Primary documented in this encounter Additional Health Concerns Assessment Noted Time PHQ-9 Depression Total Score: 14 09/30/2021 8:52 AM CD T documented as of this encounter Care Teams Horticultural Farmworker Relationship Specialty Start Date End Date [facility] PCP - General 09/21/21 [address] [place], [place] [phone] [facility] 09/21/21 [address] [place] [address] [place] [address] documented as of this encounter
--- OUTSIDE RECORDS SUMMARY | 2021-12-18 12:14 | XMS_ITS | Encounter Summary ---
:1980 Author Organization [place] Address [address] [place] [address] Care Team Providers Name Role Phone [facility] Primary Care Provider [phone] Sada Cagle Unavailable Reason for Visit Mental Health Outpatient (Routine) - Pending Review Specialty Diagnoses / Procedures Referred By Contact Refer red To Contact Behavioral Health Procedures Ur Adult Mh Partial Ur Adult Mh Day Tx MH IOP (6A) [facility] [address], [address] [place], [place] [place] Phone: [phone] Referral ID Status Reason Start Date Expiration Date Visits V isits Requested Authorized [id number] Pending 10/16/2021 10/16/2022 36 23 Review Encounter Details Date Type Department Care Team Description 11/08/2021 Hospital Encounter [facility] Addiction MD Omar Services [address] [place], [place] [address] [address] [place], [place] [phone] [address] (Work) [phone] Social History Tobacco Use Types Packs/Day Years [...] Augustus Ramirez Jr. : 1980 ACCT. NUMBER: [id number] DATE OF SERVICE: 11/08/21 START TIME: 11:00 AM END TIME: 11:50 AM CYBER SECURITY SPECIALIST: Sophie Santiago LICSW TOPIC: MH Wellness Group: Health Maintenance [facility] Adult Mental Health Day Treatment TRACK: 6A Telemedicine Visit: The patient's condition can be safely assessed and treated via synchronous audioand visual telemedicine encounter. Reason for Telemedicine Visit: Services only offered telehealth Originating Site (Patient Location): Patient's home Distant Site (Provider Location): [facility]: [facility] Consent: The patient/guardian has verbally consented to: [...] a current master individualized treatment plan. See [facility] treatment plan for more information. [facility] Self Group Note - Sophie Santiago LICSW - 11/08/2021 2:02 PM CDT Psychotherapy Group Note PATIENT'S NAME: Augustus Ramirez Jr. : 1980 ACCT. NUMBER: [id number] DATE OF SERVICE: 11/08/21 START TIME: 10:00 AM END TIME: 10:50 AM CYBER SECURITY SPECIALIST: Sophie Santiago LICSW TOPIC: EBP Group: Coping Skills [facility] Adult Mental Health Day Treatment TRACK: 6A Telemedicine Visit: The patient's condition can be safely assessed and treated via synchronous audioand visual telemedicine encounter. Reason for Telemedicine Visit: Services only offered telehealth Originating Site (Patient Location): Patient's home Distant Site (Provider Location): [facility]: [facility] Consent: The patient/guardian has verbally consented to: [...] a current master individualized treatment plan. See [facility] treatment plan for more information. [facility] Self Group Note - Sophie Santiago LICSW - 11/08/2021 12:00 PM CDT Process Group Note PATIENT'S NAME: Augustus Ramirez Jr : 1980 ACCT. NUMBER: [id number] DATE OF SERVICE: 11/08/21 START TIME: 9:00 AM END TIME: 9:50 AM CYBER SECURITY SPECIALIST: Sophie Santiago LICSW TOPIC: Process Group Diagnoses: 296.32 (F33.1) Major Depressive Disorder, Recurrent Episode, Moderate, With anxious distress Alcohol Use Disorder 303.90 (F10.20) Moderate; 305.20 (F12.10) Cannabis Use Disorder Mild Provisional Diagnosis: Attention-Deficit/Hyperactivity Disorder 314.01 (F90.2) Combined presentationas evidenced by patient's report [facility] Adult Mental Health Day Treatment TRACK: 6A Telemedicine Visit: The patient's condition can be safely assessed and treated via synchronous audioand visual telemedicine encounter. Reason for Telemedicine Visit: Services only offered telehealth Originating Site (Patient Location): Patient's home Distant Site (Provider Location): [facility]: [facility] Consent: The patient/guardian has verbally consented to: [...] Behavioral Health Sarai Weaver MD [address] [place], [place] [address] (Wo rk) documented as of this encounter Visit Diagnoses Not on filedocumented in this encounter Additional Health Concerns Assessment Noted Time PHQ-9 Depression Total Score: 14 09/30/2021 8:52 AM CD T documented as of this encounter Care Teams Car Retarder Operator Relationship Specialty Start Date End Date [facility] Medical PCP - General 09/21/21 [address] [place] [address] S[facility] 09/21/21 [address] [place] [address] [place] [address] documented as of this encounter
--- OUTSIDE RECORDS SUMMARY | 2021-12-18 12:14 | XMS_ITS | Encounter Summary ---
:1980 Author Organization [place] Address [address] [facility] [place] [address] Care Team Providers Name Role Phone [facility] Primary Care Provider [phone] Sada Cagle Unavailable [phone] Encounter Details Date Type Department Care Team Description 11/27/2021 Hospital Encounter [facility] Demarco Hoyt [facility] & MD Omar episode of major Addiction Services [address] depressive disorder [address] without prior episode [address] [place], (H) (Primary Dx) [facility] [phone] Social History Tobacco Use Types Packs/Day [...] 12/20/2021 Appointment Behavioral Health Sarai Weaver MD [address] [place] [address] (Wo rk) documented as of this encounter Visit Diagnoses Diagnosis Current moderate episode of major depres sive disorder without prior episode (H) - Primary documented in this encounter Additional Health Concerns Assessment Noted Time PHQ-9 Depression Total Score: 14 09/30/2021 8:52 AM CD T documented as of this encounter Care Teams Lease Out Worker Relationship Specialty Start Date End Date [facility] Medical PCP - General 09/21/21 [address] [place] [address] [facility] 09/21/21 [address] [place] [address] [place] [address] documented as of this encounter
--- OUTSIDE RECORDS SUMMARY | 2021-12-18 12:14 | XMS_ITS | Encounter Summary ---
:1980 Author Organization [place] Address [address] [place] [place] [address] Care Team Providers Name Role Phone [facility] Primary Care Provider [phone] Sada Cagle Unavailable [phone] Reason for Visit Auth/Cert Specialty Diagnoses / Procedures Referred By Contact Refer red To Contact Behavioral Health Ur Adult Mh Pa rtial [facility] orth Blding [address], [address] [place] [address] Phone: Fax: Referral ID Status Reason Start Date Expiration Date Visits Requ ested Visits Authorized [id number] 1 1 Encounter Details Date Type Department Care Team Description 10/14/2021 Hospital Encounter [facility] Demarco [facility] Mental Health & MD Omar episode of major Addiction Services [address] depressive disorder [facility] without prior episode Blsascha RAMOS, (H) (Primary Dx) [address] [place] [address] [address] [place], [place] (Work) [address] Social History Tobacco Use [...] Augustus Ramirez Jr. : 1980 ACCT. NUMBER: [id number] DATE OF SERVICE: 10/14/21 START TIME: 9:00 AM END TIME: 9:50 AM SECONDS GRADER: Roby Tejada LMFT TOPIC: Process Group Diagnoses: 296.32 (F33.1) Major Depressive Disorder, Recurrent Episode, Moderate, With anxious distress Attention-Deficit/Hyperactivity Disorder 314.01 (F90.2) Combined presentation Provisional Diagnoses: 1. Alcohol Use Disorder 303.90 (F10.20) Moderate 2. 305.20 (F12.10) Cannabis Use Disorder Mild [facility] Adult Partial Hospitalization Program TRACK: [facility] Split Process NUMBER OF PARTICIPANTS: 4 Service [...] Augustus Ramirez Jr. : 1980 ACCT. NUMBER: [id number] DATE OF SERVICE: 10/14/21 START TIME: 2:00 PM END TIME: 2:50 PM SECONDS GRADER: Belkis Leonard RN TOPIC: Wellness Group: [facility] Adult Partial Hospitalization Program TRACK: [facility] NUMBER OF PARTICIPANTS: 8 Summary of Group / Topics Discussed: [facility]: Sleep: Case study/sleep hygiene: Patients explored the [...] a current master individualized treatment plan. See [facility] treatment plan for more information. Belkis Leonard RN Group Note - Adelaide Morris OTR/L - 10/14/2021 2:12 PM CDT Psychoeducation Group Note PATIENT'S NAME: Augustus Ramirez Jr. : 1980 ACCT. NUMBER: [id number] DATE OF SERVICE: 10/14/21 START TIME: 1:00 PM END TIME: 1:50 PM SECONDS GRADER: Adelaide Morris OTR/L TOPIC: [facility] OT Group: Self- Regulation Skills [facility] Adult Partial Hospitalization Program TRACK: [facility] NUMBER OF PARTICIPANTS: 8 Summary of [...] a current master individualized treatment plan. See [facility] treatment plan for more information. MADI Liriano Group Note - Roby Tejada LMFT - 10/14/2021 11:49 AM CDT Psychotherapy Group Note PAT[facility]'S NAME: [facility] 1980 [facility] [id number] DATE OF SERVICE: 10/14/21 START TIME: 10:00 AM END TIME: 10:50 AM SECONDS GRADER: Roby Tejada LMFT TOPIC: MH EBP Group: Specialty [facility] Adult Partial Hospitalization Program TRACK: [facility] NUMBER OF PARTICIPANTS: 8 Summary of [...] a current master individualized treatment plan. See [facility] treatment plan for more information. DENNIS Peterson Group Note - Kathleen Grajeda LMFT - 10/14/2021 11:02 AM CDT Psychotherapy Group Note PATIENT'S NAME: Augustus Ramirez Jr. : 1980 [facility]: [id number] DATE OF SERVICE: 10/14/21 START TIME: 11:00 AM END TIME: 11:50 AM SECONDS GRADER: Kathleen Grajeda LMFT TOPIC: MH EBP Group: Cognitive Restructuring [facility] Adult Partial Hospitalization Program TRACK: 1 [...] a current master individualized treatment plan. See [facility] treatment plan for more information. DENNIS Garcia documented in this encounter Plan of Treatment Upcoming Encounters Date Type Specialty Care Team Description 12/20/2021 Appointment Behavioral Health Sarai Weaver MD [address] [facility] [place], [place] [address] (Wo rk) documented as of this encounter Visit Diagnoses Diagnosis Current moderate episode of major depres sive disorder without prior episode (H) - Primary documented in this encounter Additional Health Concerns Assessment Noted Time PHQ-9 Depression Total Score: 14 09/30/2021 8:52 AM CD T documented as of this encounter Care Teams Crane Manager Relationship Specialty Start Date End Date [facility] Medical PCP - General 09/21/21 [address] [address] [place], [place] [id number] [facility] 09/21/21 [address] [place] [place] [address] documented as of this encounter
--- OUTSIDE RECORDS SUMMARY | 2021-12-18 12:14 | XMS_ITS | Encounter Summary ---
:1980 Author Organization [place] Address [address] [place] [place] [address] Care Team Providers Name Role Phone [facility] Primary Care Provider [phone] Sada Cagle Unavailable [phone] Reason for Visit Mental Health Outpatient (Routine) - Pending Review Specialty Diagnoses / Procedures Referred By Contact Refer red To Contact Behavioral Health Procedures Ur Adult Mh Partial Ur Adult Mh Day Tx MH IOP (6A) [facility] [address], [address] [place], [place] [address] [address] [place], [place] Phone: [phone] Referral ID Status Reason Start Date Expiration Date Visits V isits Requested Authorized [id number] Pending 10/16/2021 10/16/2022 36 23 Review Encounter Details Date Type Department Care Team Description 11/05/2021 Hospital Encounter [facility] MD Omar Services [address] [place], [place] [address] [address] [place], [place] [phone] [address] (Work) [phone] Social History Tobacco Use Types Packs/Day Years [...] ok given due to kathleen Weaver MD Psychiatrist/Painting Supervisor Omar Weaver MD on 11/05/2021 at 5:29 PM ADWOA Powers Psychotherapist Sophie ORONA documented in this encounter Miscellaneous Notes Addendum Note - Sophie Santiago LICSW - 11/05/2021 4:45 PM CDT Encounter addended by: Sophie Santaigo LICSW on: 11/05/2021 4:45 PM Actions taken: Clinical Note Signed Group Note - Roby Tejada LMFT - 11/05/2021 2:51 PM CDT Psychoeducation Group Note PATIENT'S NAME: Augustus Ramirez JrRichard : 1980 ACCT. NUMBER: [id number] DATE OF SERVICE: 11/05/21 START TIME: 11:00 AM END TIME: 11:50 AM LIVE IN HOUSEKEEPER NANNY: Roby Tejada LMFT TOPIC: Wellness Group: [facility] Mental Health Day Treatment TRACK: [...] Augustus Ramirez Jr. : 1980 ACCT. NUMBER: [id number] DATE OF SERVICE: 11/05/21 START TIME: 10:00 AM END TIME: 10:50 AM LIVE IN HOUSEKEEPER NANNY: Sophie Santiago LICSW TOPIC: MH EBP Group: Behavioral Activation [facility] Adult Mental Health Day Treatment TRACK: 6A Telemedicine Visit: The patient's condition can be safely assessed and treated via synchronous audioand visual telemedicine encounter. Reason for Telemedicine Visit: Services only offered telehealth Originating Site (Patient Location): Patient's home Distant Site (Provider Location): [facility]: [facility] Consent: The patient/guardian has verbally consented to: [...] [facility] treatment plan for more information. ADWOA Powers Group Note - Sophie Santiago LICSW - 11/05/2021 12:19 PM CDT Process Group Note PATIENT'S NAME: Augustus Ramirez Jr. : 1980 ACCT. NUMBER: [id number] DATE OF SERVICE: 11/05/21 START TIME: 9:00 AM END TIME: 9:50 AM LIVE IN HOUSEKEEPER NANNY: Sophie Santiago LICSW TOPIC: Process Group Diagnoses: 296.32 (F33.1) Major Depressive Disorder, Recurrent Episode, Moderate, With anxious distress Alcohol Use Disorder 303.90 (F10.20) Moderate; 305.20 (F12.10) Cannabis Use Disorder Mild Provisional Diagnosis: Attention-Deficit/Hyperactivity Disorder 314.01 (F90.2) Combined presentationas evidenced by patient's report [facility] Adult Mental Health Day Treatment TRACK: 6A Telemedicine Visit: The patient's condition can be safely assessed and treated via synchronous audioand visual telemedicine encounter. Reason for Telemedicine Visit: Services only offered telehealth Originating Site (Patient Location): Patient's home Distant Site (Provider Location): [facility]: [facility] Consent: The patient/guardian has verbally consented to: [...] Behavioral Health Sarai Weaver MD [address] [place], [place] [address] (Wo rk) documented as of this encounter Visit Diagnoses Not on filedocumented in this encounter Additional Health Concerns Assessment Noted Time PHQ-9 Depression Total Score: 14 09/30/2021 8:52 AM CD T documented as of this encounter Care Teams Security Systems Integrator Relationship Specialty Start Date End Date [facility] PCP - General 09/21/21 [address] [place] [address] [facility] 09/21/21 [address] [place] [address] [id number] documented as of this encounter
--- OUTSIDE RECORDS SUMMARY | 2021-12-18 12:14 | XMS_ITS | Encounter Summary ---
:1980 Author Organization [place] Address [address] [place] [place] [address] Care Team Providers Name Role Phone [facility] Primary Care Provider [phone] Sada Cagle Unavailable [phone] Reason for Visit Mental Health Outpatient (Routine) - Pending Review Specialty Diagnoses / Procedures Referred By Contact Refer red To Contact Behavioral Health Procedures Ur Adult Mh Partial Ur Adult Mh Day Tx MH IOP (6A) [facility] [address], [address] [place], [place] [address] [address] [place], [place] Phone: [phone] Referral ID Status Reason Start Date Expiration Date Visits V isits Requested Authorized [id number] Pending 10/16/2021 10/16/2022 36 23 Review Encounter Details Date Type Department Care Team Description 11/22/2021 Hospital Encounter [facility] Demarco Weaver [facility] Mental [facility] & MD Omar episode of major Addiction Services [address] depressive disorder [address] without prior episode [address] [place], (H) (Primary Dx) [facility] [phone] Social History Tobacco Use Types Packs/Day [...] Augustus Ramirez Jr. : 1980 ACCT. NUMBER: [id number] DATE OF SERVICE: 11/22/21 START TIME: 11:00 AM END TIME: 11:50 AM CUSTOMER SOLUTIONS TEAMMATE: Sophie Santiago LICSW TOPIC: MH Wellness Group: Health Maintenance [facility] Adult Mental Health Day Treatment TRACK: 6A Telemedicine Visit: The patient's condition can be safely assessed and treated via synchronous audioand visual telemedicine encounter. Reason for Telemedicine Visit: Services only offered telehealth Originating Site (Patient Location): Patient's home Distant Site (Provider Location): [facility]: [facility] Consent: The patient/guardian has verbally consented to: [...] Augustus Ramirez Jr. : 1980 ACCT. NUMBER: [id number] DATE OF SERVICE: 11/22/21 START TIME: 10:00 AM END TIME: 10:50 AM CUSTOMER SOLUTIONS TEAMMATE: Sophie Santiago LICSW TOPIC: EBP Group: Self-Awareness [facility] Adult Mental Health Day Treatment TRACK: 6A Telemedicine Visit: The patient's condition can be safely assessed and treated via synchronous audioand visual telemedicine encounter. Reason for Telemedicine Visit: Services only offered telehealth Originating Site (Patient Location): Patient's home Distant Site (Provider Location): [facility]: [facility] Consent: The patient/guardian has verbally consented to: [...] Augustus Ramirez Jr. : 1980 ACCT. NUMBER: [id number] DATE OF SERVICE: 11/22/21 START TIME: 9:00 AM END TIME: 9:50 AM CUSTOMER SOLUTIONS TEAMMATE: Sophie Santiago LICSW TOPIC: Process Group Diagnoses: 296.32 (F33.1) Major Depressive Disorder, Recurrent Episode, Moderate, With anxious distress Alcohol Use Disorder 303.90 (F10.20) Moderate; 305.20 (F12.10) Cannabis Use Disorder Mild Provisional Diagnosis: Attention-Deficit/Hyperactivity Disorder 314.01 (F90.2) Combined presentationas evidenced by patient's report [facility] Adult Mental Health Day Treatment TRACK: 6A Telemedicine Visit: The patient's condition can be safely assessed and treated via synchronous audioand visual telemedicine encounter. Reason for Telemedicine Visit: Services only offered telehealth Originating Site (Patient Location): Patient's home Distant Site (Provider Location): [facility]: [facility] Consent: The patient/guardian has verbally consented to: [...] him.Pt is anxious about tomorrow's trip to [place]. He will be taking his mother, who [...] Care Team Description 12/20/2021 Appointment Behavioral Health Owen Id MD [facility] [address], [place] [address] (Wo rk) documented as of this encounter Visit Diagnoses Diagnosis Current moderate episode of major depres sive disorder without prior episode (H) - Primary documented in this encounter Additional Health Concerns Assessment Noted Time PHQ-9 Depression Total Score: 14 09/30/2021 8:52 AM CD T documented as of this encounter Care Teams Lap Maker Relationship Specialty Start Date End Date [facility] Medical PCP - General 09/21/21 [address] [place] [address] [facility] 09/21/21 [address] [place] [place] [address] documented as of this encounter
--- OUTSIDE RECORDS SUMMARY | 2021-12-18 12:14 | XMS_ITS | Encounter Summary ---
:1980 Author Organization [place] Address [address] [place] [address] Care Team Providers Name Role Phone [facility] Primary Care Provider [phone] Sada Cagle Unavailable [phone] Reason for Visit Mental Health Outpatient (Routine) - Pending Review Specialty Diagnoses / Procedures Referred By Contact Refer red To Contact Behavioral Health Procedures Ur Adult Mh Partial Ur Adult Mh Day Tx MH IOP (6A) [facility] [address], [address] [place], [place] [address] [address] [place], [place] Phone: [phone] Referral ID Status Reason Start Date Expiration Date Visits V isits Requested Authorized [id number] Pending 10/16/2021 10/16/2022 36 23 Review Encounter Details Date Type Department Care Team Description 10/23/2021 Hospital Encounter [facility] Demarco Weaver [facility] Mental Health & MD Omar episode of major Addiction Services [address] depressive disorder [address] without prior episode [address] [place], (H) (Primary Dx) [facility] [address] Social History Tobacco Use Types Packs/Day [...] Augustus Ramirez Jr. : 1980 ACCT. NUMBER: [id number] DATE OF SERVICE: 10/23/21 START TIME: 11:00 AM END TIME: 11:50 AM WIRE TWISTING MACHINE OPERATOR: Roby Tejada LMFT TOPIC: MH Wellness Group: Mental Health Maintenance [facility] Adult Mental Health Day [...] Augustus Ramirez Jr. : 1980 ACCT. NUMBER: [id number] DATE OF SERVICE: 10/23/21 START TIME: 10:00 AM END TIME: 10:50 AM WIRE TWISTING MACHINE OPERATOR: Roby Tejada LMFT TOPIC: MH EBP Group: Behavioral Activation [facility] Adult Mental Health Day Treatment TRACK: 6A NUMBER OF PARTICIPANTS: 5 Summary of Group / Topics Discussed: Behavioral Activation: [place]: {Patients identified situations that prompt unwanted [...] Augustus Ramirez Jr. : 1980 ACCT. NUMBER: [id number] DATE OF SERVICE: 10/23/21 START TIME: 9:00 AM END TIME: 9:50 AM WIRE TWISTING MACHINE OPERATOR: Jessica Leavitt LMFT TOPIC: Process Group Diagnoses: 296.32 (F33.1) Major Depressive Disorder, Recurrent Episode, Moderate, With anxious distress Attention-Deficit/Hyperactivity Disorder 314.01 (F90.2) Combined presentation Provisional Diagnoses: Alcohol Use Disorder 303.90 (F10.20) Moderate 305.20 (F12.10) Cannabis Use Disorder Mild [facility] Day Treatment TRACK: 6A NUMBER OF [...] 12/20/2021 Appointment Behavioral Health Sarai Weaver MD [address], [place] [address] (Wo rk) documented as of this encounter Visit Diagnoses Diagnosis Current moderate episode of major depres sive disorder without prior episode (H) - Primary documented in this encounter Additional Health Concerns Assessment Noted Time PHQ-9 Depression Total Score: 14 09/30/2021 8:52 AM CD T documented as of this encounter Care Teams Boat Hand Relationship Specialty Start Date End Date [facility] Medical PCP - General 09/21/21 [address] [place], [place] [id number] [facility] 09/21/21 [address] [place] [address] [place] [address] documented as of this encounter
--- OUTSIDE RECORDS SUMMARY | 2021-12-18 12:14 | XMS_ITS | Encounter Summary ---
:1980 Author Organization [place] Address [address] [place] [address] Care Team Providers Name Role Phone [facility] Primary Care Provider [phone] Sada Cagle Unavailable [phone] Reason for Visit Mental Health Outpatient (Routine) - Pending Review Specialty Diagnoses / Procedures Referred By Contact Refer red To Contact Behavioral Health Procedures Ur Adult Mh Partial Ur Adult Mh Day Tx MH IOP (6A) [facility] [address], [place], [place] [address] [address] [place], [place] Phone: [phone] Referral ID Status Reason Start Date Expiration Date Visits V isits Requested Authorized [id number] Pending 10/16/2021 10/16/2022 36 23 Review Encounter Details Date Type Department Care Team Description 11/20/2021 Hospital Encounter [facility] Demarco Weaver [facility] Mental [facility] & MD Omar episode of major Addiction Services [address] depressive disorder [address] without prior episode [address] [place], (H) (Primary Dx) [facility] 8[address] Social History Tobacco Use Types Packs/Day [...] Augustus Ramirez Jr. : 1980 ACCT. NUMBER: [id number] DATE OF SERVICE: 11/20/21 START TIME: 11:00 AM END TIME: 11:50 AM ENTERPRISE SECURITY ARCHITECT: Roby Tejada LMFT TOPIC: EBP Group: Coping Skills [facility] Adult Mental Health Day [...] a current master individualized treatment plan. See [facility] treatment plan for more information. DENNIS Peterson Group Note - Roby Tejada LMFT - 11/20/2021 9:07 PM CDT Psychotherapy Group Note PATIENT'S NAME: Augustus Ramirez Jr. : 1980 ACCT. NUMBER: [id number] DATE OF SERVICE: 11/20/21 START TIME: 10:00 AM END TIME: 10:50 AM ENTERPRISE SECURITY ARCHITECT: Roby Tejada LMFT TOPIC: MH EBP Group: Specialty Awareness [facility] Adult Mental Health Day [...] a current master individualized treatment plan. See [facility] treatment plan for more information. DENNIS Peterson Group Note - Sophie Santiago LICSW - 11/20/2021 11:21 AM CDT Process Group Note PATIENT'S NAME: Augustus Ramirez Jr. : 1980 ACCT. NUMBER: [id number] DATE OF SERVICE: 11/20/21 START TIME: 9:00 AM END TIME: 9:50 AM ENTERPRISE SECURITY ARCHITECT: Sophie Santiago LICSW TOPIC: Process Group Diagnoses: 296.32 (F33.1) Major Depressive Disorder, Recurrent Episode, Moderate, With anxious distress Alcohol Use Disorder 303.90 (F10.20) Moderate; 305.20 (F12.10) Cannabis Use Disorder Mild Provisional Diagnosis: Attention-Deficit/Hyperactivity Disorder 314.01 (F90.2) Combined presentationas evidenced by patient's report [facility] Adult Mental Health Day Treatment TRACK: 6A Telemedicine Visit: The patient's condition can be safely assessed and treated via synchronous audioand visual telemedicine encounter. Reason for Telemedicine Visit: Services only offered telehealth Originating Site (Patient Location): Patient's home Distant Site (Provider Location): [facility]: [facility] Consent: The patient/guardian has verbally consented to: [...] He sets a goal to go to [place] today and will bring his service dog [...] Health Sarai Weaver MD [address] [place] [address] (Wo rk) documented as of this encounter Visit Diagnoses Diagnosis Current moderate episode of major depres sive disorder without prior episode (H) - Primary documented in this encounter Additional Health Concerns Assessment Noted Time PHQ-9 Depression Total Score: 14 09/30/2021 8:52 AM CD T documented as of this encounter Care Teams Retail Manager Relationship Specialty Start Date End Date [facility] Medical PCP - General 09/21/21 [address] [place] [address] [facility] 09/21/21 [address] [place] [address] [place] [address] documented as of this encounter
--- OUTSIDE RECORDS SUMMARY | 2021-12-18 12:14 | XMS_ITS | Encounter Summary ---
:1980 Author Organization [place] Address [address] [facility] [facility] [place] [address] Care Team Providers Name Role Phone [facility] Primary Care Provider [phone] Sada Cagle Unavailable [phone] Encounter Details Date Type Department Care Team Description 11/22/2021 Telephone [facility] Sophie Santiago [facility] [address] [place] [address] [facility] [address] [place] [address] [place] [phone] Social History Tobacco Use Types Packs/Day Years Used Date Smoking Tobacco: Every Day Alcohol Use Standard Drinks/Week Comments Yes 0 (1 standard drink = 0.6 oz pure alcoho l) Sex Assigned at Date Recorded Not on file documented as of this encounter Plan of Treatment Upcoming Encounters Date Type Specialty Care Team Description 12/20/2021 Appointment Behavioral Health Sarai Weaver MD [address] [place], [place] [address] (Wo rk) documented as of this encounter Visit Diagnoses Diagnosis Current moderate episode of major depres sive disorder without prior episode (H) - Primary documented in this encounter Additional Health Concerns Assessment Noted Time PHQ-9 Depression Total Score: 14 09/30/2021 8:52 AM CD T documented as of this encounter Care Teams Investment Director Relationship Specialty Start Date End Date [facility] PCP - General 09/21/21 [address] [place] [address] [facility] 09/21/21 [address] [place] [address] [place] [address] documented as of this encounter
--- OUTSIDE RECORDS SUMMARY | 2021-12-18 12:14 | XMS_ITS | Encounter Summary ---
:1980 Author Organization [place] Address [address] [place] [address] Care Team Providers Name Role Phone [facility] Primary Care Provider [phone] Sada Cagle Unavailable Reason for Visit Auth/Cert Specialty Diagnoses / Procedures Referred By Contact Refer red To Contact Behavioral Health Ur Adult Mh Pa rtial [facility] [address], [address] [place] [address] Phone: Fax: Referral ID Status Reason Start Date Expiration Date Visits Requ ested Visits Authorized [id number] 1 1 Encounter Details Date Type Department Care Team Description 10/10/2021 Hospital Encounter [facility] Demarco Weaver [facility] Mental Health & MD Omar episode of major Addiction Services [address] depressive disorder [facility] without prior episode Blsascha RAMOS, (H) (Primary Dx) [address] [place] [address] [address] [place], [place] (Work) [address] Social History Tobacco Use [...] electronic health record. Name: Signature: Augustus Ramirez JrRichard Patient agrees with the plan. Patient is unable to sign due to COVID-19. Omar Weaver MD Psychiatrist/Three Dimensional Art Instructor Omar Weaver MD on 10/11/2021 at 8:43 AM Roby Tejada MA, [facility] Omar Weaver MD on 10/10/2021 at 4:47 PM documented in this encounter Miscellaneous Notes Group Note - Estefania Ellis OTR/Yanna - 10/10/2021 3:53 PM CDT Psychoeducation Group Note PATIENT'S NAME: Augustus Ramirez Jr. : 1980 ACCT. NUMBER: [id number] DATE OF SERVICE: 10/10/21 START TIME: 2:00 PM END TIME: 2:50 PM PASSENGER SCREENER: Estefania Ellis OTR/Yanna TOPIC: [facility] OT Group: Self- Regulation Skills [facility], [facility] Consent: The patient/guardian has verbally consented to: [...] Psychotherapy Group Note PATIENT'S NAME: Augustus Ramirez : 1980 ACCT. NUMBER: [id number] DATE OF SERVICE: 10/10/21 START TIME: 1:00 PM END TIME: 1:50 PM PASSENGER SCREENER: Gaby Eden LICSW TOPIC: EBP Group: Enhanced [...] Augustus Ramirez Jr. : 1980 ACCT. NUMBER: [id number] DATE OF SERVICE: 10/10/21 START TIME: 10:00 AM END TIME: 10:50 AM PASSENGER SCREENER: Belkis Leonard RN TOPIC: Wellness Group: [facility] Adult Partial Hospitalization Program TRACK: [facility] NUMBER OF PARTICIPANTS: 7 Summary of Group / Topics Discussed: [facility]: Nutrition: Super Nutrients & Micronutrients: Super Nutrients [...] Augustus Ramirez Jr. : 1980 ACCT. NUMBER: [id number] DATE OF SERVICE: 10/10/21 START TIME: 9:00 AM END TIME: 9:50 AM PASSENGER SCREENER: Roby Tejada LMFT TOPIC: Process Group Diagnoses: 296.32 (F33.1) Major Depressive Disorder, Recurrent Episode, Moderate, With anxious distress Attention-Deficit/Hyperactivity Disorder 314.01 (F90.2) Combined presentation Provisional Diagnoses: 1. Alcohol Use Disorder 303.90 (F10.20) Moderate 2. 305.20 (F12.10) Cannabis Use Disorder Mild [facility] Adult Partial Hospitalization Program TRACK: [facility] NUMBER OF PARTICIPANTS: 7 Service [...] reported feeling proud/grateful for going to the [email or web address] for 20 minutes yesterday and he didn???t [...] Augustus Ramirez Jr. : 1980 ACCT. NUMBER: [id number] DATE OF SERVICE: 10/10/21 START TIME: 11:00 AM END TIME: 11:50 AM PASSENGER SCREENER: Kathleen Grajeda LMFT TOPIC: EBP Group: Self-Awareness [...] 12/20/2021 Appointment Behavioral Health Sarai Weaver MD [address] [place] [id number] (Wo rk) documented as of this encounter Visit Diagnoses Diagnosis Current moderate episode of major depres sive disorder without prior episode (H) - Primary documented in this encounter Additional Health Concerns Assessment Noted Time PHQ-9 Depression Total Score: 14 09/30/2021 8:52 AM CD T documented as of this encounter Care Teams Title Lawyer Relationship Specialty Start Date End Date [facility] Medical PCP - General 09/21/21 [address] [place], [place] [id number] [facility] 09/21/21 [address] [place] [place] [address] documented as of this encounter
--- OUTSIDE RECORDS SUMMARY | 2021-12-18 12:14 | XMS_ITS | Encounter Summary ---
:1980 Author Organization [place] Address [address] [place] [address] Care Team Providers Name Role Phone [facility] Primary Care Provider [phone] Sada Cagle Unavailable Reason for Visit Mental Health Outpatient (Routine) - Pending Review Specialty Diagnoses / Procedures Referred By Contact Refer red To Contact Behavioral Health Procedures Ur Adult Mh Partial Ur Adult Mh Day Tx MH IOP (6A) [facility] [address], [address] [place], [place] [address] [address] [place], [place] Phone: [phone] Referral ID Status Reason Start Date Expiration Date Visits V isits Requested Authorized [id number] Pending 10/16/2021 10/16/2022 36 23 Review Encounter Details Date Type Department Care Team Description 11/19/2021 Hospital Encounter [facility] Demarco Weaver [facility] Mental [facility] & MD Omar episode of major Addiction Services [address] depressive disorder [address] without prior episode [address] [place], (H) (Primary Dx) [facility] [phone] Social History Tobacco Use Types Packs/Day [...] Augustus Ramirez Jr. : 1980 ACCT. NUMBER: [id number] DATE OF SERVICE: 11/19/21 START TIME: 11:00 AM END TIME: 11:50 AM BIOPROCESSING MANUFACTURING TECHNICIAN: Roby Tejada LMFT TOPIC: EBP Group: Coping Skills [facility] Adult Mental Health Day Treatment TRACK: 6A [...] a current master individualized treatment plan. See [facility] treatment plan for more information. DENNIS Peterson Group Note - Sophie Santiago LICSW - 11/19/2021 3:11 PM CDT Psychotherapy Group Note PATIENT'S NAME: Augustus Ramirez Jr. : 1980 ACCT. NUMBER: [id number] DATE OF SERVICE: 11/19/21 START TIME: 10:00 AM END TIME: 10:50 AM BIOPROCESSING MANUFACTURING TECHNICIAN: Sophie Santiago LICSW TOPIC: EBP Group: Coping Skills [facility] Adult Mental Health Day Treatment TRACK: 6A Telemedicine Visit: The patient's condition can be safely assessed and treated via synchronous audioand visual telemedicine encounter. Reason for Telemedicine Visit: Services only offered telehealth Originating Site (Patient Location): Patient's home Distant Site (Provider Location): [facility] Consent: The patient/guardian has verbally consented [...] a current master individualized treatment plan. See [facility] treatment plan for more information. ADWOA Self Group Note - Sophie Santiago LICSW - 11/19/2021 1:58 PM CDT Process Group Note PATIENT'S NAME: Augustus Ramirez Jr. : 1980 ACCT. NUMBER: [id number] DATE OF SERVICE: 11/19/21 START TIME: 9:00 AM END TIME: 9:50 AM BIOPROCESSING MANUFACTURING TECHNICIAN: Sophie Santiago LICSW TOPIC: Process Group Diagnoses: 296.32 (F33.1) Major Depressive Disorder, Recurrent Episode, Moderate, With anxious distress Alcohol Use Disorder 303.90 (F10.20) Moderate; 305.20 (F12.10) Cannabis Use Disorder Mild Provisional Diagnosis: Attention-Deficit/Hyperactivity Disorder 314.01 (F90.2) Combined presentationas evidenced by patient's report [facility] Day Treatment TRACK: 6A Telemedicine Visit: The patient's condition can be safely assessed and treated via synchronous audioand visual telemedicine encounter. Reason for Telemedicine Visit: Services only offered telehealth Originating Site (Patient Location): Patient's home Distant Site (Provider Location): [facility]: [facility] Consent: The patient/guardian has verbally consented [...] He is anxious about upcoming trip to [place] with his mom and aunt. He is [...] 12/20/2021 Appointment Behavioral Health Sarai Weaver MD [address], [place] [id number] (Wo rk) documented as of this encounter Visit Diagnoses Diagnosis Current moderate episode of major depres sive disorder without prior episode (H) - Primary documented in this encounter Additional Health Concerns Assessment Noted Time PHQ-9 Depression Total Score: 14 09/30/2021 8:52 AM CD T documented as of this encounter Care Teams Manager Of Finance Relationship Specialty Start Date End Date [facility] Medical PCP - General 09/21/21 [address] [address] [place], [place] [phone] [facility] 09/21/21 [address] [place] [address] [place] [address] documented as of this encounter
--- OUTSIDE RECORDS SUMMARY | 2021-12-18 12:14 | XMS_ITS | Encounter Summary ---
:1980 Author Organization [place] Address [address] [place] [address] Care Team Providers Name Role Phone [facility] Primary Care Provider [phone] Sada Cagle Unavailable [phone] Reason for Visit Mental Health Outpatient (Routine) - Pending Review Specialty Diagnoses / Procedures Referred By Contact Refer red To Contact Behavioral Health Procedures Ur Adult Mh Partial Ur Adult Mh Day Tx MH IOP (6A) [facility] [address], [place], [place] [address] [address] [place], [place] Phone: [phone] Referral ID Status Reason Start Date Expiration Date Visits V isits Requested Authorized [id number] Pending 10/16/2021 10/16/2022 36 23 Review Encounter Details Date Type Department Care Team Description 11/12/2021 Hospital Encounter [facility] Addiction MD Omar Services [address] [place], [place] [address] [address] [place], [place] [phone] [address] (Work) [phone] Social History Tobacco Use Types Packs/Day Years [...] Augustus Ramirez Jr. : 1980 ACCT. NUMBER: [id number] DATE OF SERVICE: 11/12/21 START TIME: 10:00 AM END TIME: 10:50 AM EVENT LIGHTING SPECIALIST: Sophie Santiago LICSW TOPIC: EBP Group: Coping Skills [facility] Adult Mental Health Day Treatment TRACK: 6A Telemedicine Visit: The patient's condition can be safely assessed and treated via synchronous audioand visual telemedicine encounter. Reason for Telemedicine Visit: Services only offered telehealth Originating Site (Patient Location): Patient's home Distant Site (Provider Location): [facility]: [facility] Consent: The patient/guardian has [...] a current master individualized treatment plan. See [facility] treatment plan for more information. ADWOA Self Group Note - Roby Tejada LMFT - 11/12/2021 1:46 PM CDT Psychotherapy Group Note PATIENT'S NAME: Augustus Ramirez Jr. : 1980 ACCT. NUMBER: [id number] DATE OF SERVICE: 11/12/21 START TIME: 11:00 AM END TIME: 11:50 AM EVENT LIGHTING SPECIALIST: Roby Tejada LMFT TOPIC: EBP Group: Coping Skills [facility] Mental Health Day Treatment TRACK: [...] a current master individualized treatment plan. See [facility] treatment plan for more information. DENNIS Peterson Group Note - Sophie Santiago LICSW - 11/12/2021 1:37 PM CDT Process Group Note PATIENT'S NAME: Augustus Ramirez Jr. : 1980 ACCT. NUMBER: [id number] DATE OF SERVICE: 11/12/21 START TIME: 9:00 AM END TIME: 9:50 AM EVENT LIGHTING SPECIALIST: Sophie Santiago LICSW TOPIC: Process Group Diagnoses: 296.32 (F33.1) Major Depressive Disorder, Recurrent Episode, Moderate, With anxious distress Alcohol Use Disorder 303.90 (F10.20) Moderate; 305.20 (F12.10) Cannabis Use Disorder Mild Provisional Diagnosis: Attention-Deficit/Hyperactivity Disorder 314.01 (F90.2) Combined presentationas evidenced by patient's report [facility] Adult Mental Health Day Treatment TRACK: 6A Telemedicine Visit: The patient's condition can be safely assessed and treated via synchronous audioand visual telemedicine encounter. Reason for Telemedicine Visit: Services only offered telehealth Originating Site (Patient Location): Patient's home Distant Site (Provider Location): [facility]: [facility] Consent: The patient/guardian has [...] while his wifetook the kids to the [facility]. Pt reports struggle to leave the house. 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 He identifies coping skills as: distraction, grounding [...] Care Team Description 12/20/2021 Appointment Behavioral Health OwenSarai bhatt MD [address] [place], [place] [address] (Wo rk) documented as of this encounter Visit Diagnoses Not on filedocumented in this encounter Additional Health Concerns Assessment Noted Time PHQ-9 Depression Total Score: 14 09/30/2021 8:52 AM CD T documented as of this encounter Care Teams Pest Management Supervisor Relationship Specialty Start Date End Date [facility] Medical PCP - General 09/21/21 [address] [place] [address] [facility] 09/21/[address] [place] [address] documented as of this encounter
--- OUTSIDE RECORDS SUMMARY | 2021-12-18 12:14 | XMS_ITS | Encounter Summary ---
:1980 Author Organization [place] Address [address] [place] [address] Care Team Providers Name Role Phone [facility] Primary Care Provider [phone] Sada Cagle Unavailable [phone] Reason for Visit Mental Health Outpatient (Routine) - Pending Review Specialty Diagnoses / Procedures Referred By Contact Refer red To Contact Behavioral Health Procedures Ur Adult Mh Partial Ur Adult Mh Day Tx MH IOP (6A) [facility] [address], [place], [place] [address] [address] [place] Phone: [phone] Referral ID Status Reason Start Date Expiration Date Visits V isits Requested Authorized [id number] Pending 10/16/2021 10/16/2022 36 23 Review Encounter Details Date Type Department Care Team Description 11/01/2021 Hospital Encounter [facility] Demarco Weaver [facility] Mental [facility] & MD Omar episode of major Addiction Services [address] depressive disorder [address] without prior episode [address] [place], (H) (Primary Dx) [facility] [phone] Social History Tobacco Use Types Packs/Day [...] Augustus Ramirez Jr. : 1980 ACCT. NUMBER: [id number] DATE OF SERVICE: 11/01/21 START TIME: 11:00 AM END TIME: 11:50 AM FOOD PRODUCTION MANAGER: Sophie Santiago LICSW TOPIC: MH Wellness Group: Health Maintenance [facility] Adult Mental Health Day Treatment TRACK: 6A Telemedicine Visit: The patient's condition can be safely assessed and treated via synchronous audioand visual telemedicine encounter. Reason for Telemedicine Visit: Services only offered telehealth Originating Site (Patient Location): Patient's home Distant Site (Provider Location): [facility]: [facility] Consent: The patient/guardian has verbally [...] Augustus Ramirez Jr. : 1980 ACCT. NUMBER: [id number] DATE OF SERVICE: 11/01/21 START TIME: 10:00 AM END TIME: 10:50 AM FOOD PRODUCTION MANAGER: Sophie Santiago LICSW TOPIC: Wellness Group: [facility] Adult Mental Health Day Treatment TRACK: 6A Telemedicine Visit: The patient's condition can be safely assessed and treated via synchronous audioand visual telemedicine encounter. Reason for Telemedicine Visit: Services only offered telehealth Originating Site (Patient Location): Patient's home Distant Site (Provider Location): [facility]: [facility] Consent: The patient/guardian has verbally [...] 5 Summary of Group / Topics Discussed: [facility]: Sleep: sleep hygiene: Patients explored the connection [...] Augustus Ramirez Jr. : 1980 ACCT. 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 Reason for Telemedicine Visit: Services only offered telehealth Originating Site (Patient Location): Patient's home Distant Site (Provider Location): [facility]: [facility] Consent: The patient/guardian has verbally [...] Appointment Behavioral Health Sarai Weaver MD [address] [place] [address] (Wo rk) documented as of this encounter Visit Diagnoses Diagnosis Current moderate episode of major depres sive disorder without prior episode (H) - Primary documented in this encounter Additional Health Concerns Assessment Noted Time PHQ-9 Depression Total Score: 14 09/30/2021 8:52 AM CD T documented as of this encounter Care Teams Recreation Program Coordinator Relationship Specialty Start Date End Date [place] PCP - General 09/21/21 [address] [place] [address] [facility] 09/21/21 [address] [place] [address] [place] [address] documented as of this encounter
--- OUTSIDE RECORDS SUMMARY | 2021-12-18 12:14 | XMS_ITS | Encounter Summary ---
:1980 Author Organization [place] Address [address] [facility] [place] [address] Care Team Providers Name Role Phone [facility] Primary Care Provider [phone] Sada Cagle Unavailable [phone] Encounter Details Date Type Department Care Team Description 11/13/2021 [facility] Omar episode of major Addiction Services [address] depressive disorder [address] without prior episode [address] [place], (H) (Primary Dx) [facility] [address] Social History Tobacco Use Types Packs/Day [...] Weaver MD - 11/13/2021 9:48 AM CDT [facility] [place] Adult Mental Health Outpatient Programs Provider Interval History Note Program: Intensive Outpatient Track: 6A PATIENT'S NAME: Augustus Ramirez Jr. : 1980 ACCT. NUMBER: [id number] DATE OF SERVICE: 11/13/21 CALL/VIDEO START TIME: [...] above list was reviewed and updated in [facility] with patient today. Patient is taking medications [...] or call after hours crisis line at [phone] or [phone]. [place] Crisis Text Line: Text [place] to 501487 or Suicide LifeLine Chat: suicidepreventionlifeline.org/chat Follow-up: ??? [...] with questions or concerns (see below) ??? [employer]hart may be used to communicate with your provider, but this is not intended to be used for emergencies. [facility] Adult Mental Health Program lines: [facility] Hospital: [phone] Dual Disorder: [phone] Adult Day Treatment: [phone] 55+/Intensive Outpatient: [phone] Community Resources: National Suicide Prevention Lifeline: 988 from any phone, or 492-038-9002 (TTY: 252.157.4478). Call anytime for help. (www.suicidepreventionlifeline.org) National [place] on Mental Illness (www.nasreen.org): 703.609.1060 or 067-799-8872. Mental Health Association (www.mentalhealth.org): 803.526.4545 or 312-047-0746. [place] Crisis Text Line: Text [place] to 883891 Suicide LifeLine Chat: suicidepreFoodistline.org/chat Treatment Objective(s) Addressed in This Session: The purpose of today's virtual visit is for this junior technical writer to provide oversight of patient's care [...] above Originating Location (pt. Location): [place] in [place] Distant Location (provider location): Provider Remote Setting- Home Office Platform used for Video Visit: Zoom Physician has received verbal consent for a Video Visit from the patient? Yes 60 minutes spent on the date of the encounter doing chart review, patient visit, documentation and discussion with other provider(s) This document completed in part using [employer] dictation software. Please excuse any inadvertent word or phrase substitutions. documented in this encounter Plan of Treatment Upcoming Encounters Date Type Specialty Care Team Description 12/20/2021 Appointment Behavioral Health Sarai Weaver MD [address] [place], [place] [address] (Wo rk) documented as of this encounter Visit Diagnoses Diagnosis Current moderate episode of major depres sive disorder without prior episode (H) - Primary documented in this encounter Additional Health Concerns Assessment Noted Time PHQ-9 Depression Total Score: 14 09/30/2021 8:52 AM CD T documented as of this encounter Care Teams Sustainability Project Coordinator Relationship Specialty Start Date End Date [facility] Medical PCP - General 09/21/21 [address] [place] [address] [facility] 09/21/21 [address] [place] [address] [place] [address] documented as of this encounter
--- OUTSIDE RECORDS SUMMARY | 2021-12-18 12:14 | XMS_ITS | Encounter Summary ---
:1980 Author Organization [place] Address [address] [place] [address] Care Team Providers Name Role Phone [facility] Primary Care Provider [phone] Sada Cagle Unavailable [phone] Reason for Visit Mental Health Outpatient (Routine) - Pending Review Specialty Diagnoses / Procedures Referred By Contact Refer red To Contact Behavioral Health Procedures Ur Adult Mh Partial Ur Adult Mh Day Tx MH IOP (6A) [facility] [address], [address] [place], [place] [address] [address] [place], [place] Phone: [phone] Referral ID Status Reason Start Date Expiration Date Visits V isits Requested Authorized [id number] Pending 10/16/2021 10/16/2022 36 23 Review Encounter Details Date Type Department Care Team Description 10/18/2021 Hospital Encounter [facility] Demarco Weaver [facility] Mental Health & MD Omar episode of major Addiction Services [address] depressive disorder [address] without prior episode [address] [place], (H) (Primary Dx) [facility] [id number] Social History Tobacco Use Types Packs/Day [...] Augustus Ramirez JrRichard : 1980 ACCT. NUMBER: [id number] DATE OF SERVICE: 10/18/21 START TIME: 11:00 AM END TIME: 11:50 AM BRINE TANK TENDER: Sophie Santiago LICSW TOPIC: MH Wellness Group: Health Maintenance [facility] Adult Mental Health Day Treatment TRACK: 6A Telemedicine Visit: The patient's condition can be safely assessed and treated via synchronous audioand visual telemedicine encounter. Reason for Telemedicine Visit: Services only offered telehealth Originating Site (Patient Location): Patient's home Distant Site (Provider Location): [facility]: [facility] [place] [place] Consent: The patient/guardian has verbally consented to: [...] Augustus Ramirez Jr. : 1980 ACCT. NUMBER: [id number] DATE OF SERVICE: 10/18/21 START TIME: 10:00 AM END TIME: 10:50 AM BRINE TANK TENDER: Sophie Santiago LICSW TOPIC: MH EBP Group: Cognitive Restructuring [facility] Adult Mental Health Day Treatment TRACK: 6 Telemedicine Visit: The patient's condition can be safely assessed and treated via synchronous audioand visual telemedicine encounter. Reason for Telemedicine Visit: Services only offered telehealth Originating Site (Patient Location): Patient's home Distant Site (Provider Location): [facility]: [facility] [place] [place] Consent: The patient/guardian has verbally consented to: [...] Augustus Ramirez Jr. : 1980 ACCT. NUMBER: [id number] DATE OF SERVICE: 10/18/21 START TIME: 9:00 AM END TIME: 9:50 AM BRINE TANK TENDER: Sophie Santiago LICSW TOPIC: Process Group Diagnoses: [...] Patient's home Distant Site (Provider Location): [facility]: [facility] [place] [place] Consent: The patient/guardian has verbally consented to: [...] Care Team Description 12/20/2021 Appointment Behavioral Health [facility] MD alexei [address] [place], [place] [address] (Wo rk) documented as of this encounter Visit Diagnoses Diagnosis Current moderate episode of major depres sive disorder without prior episode (H) - Primary documented in this encounter Additional Health Concerns Assessment Noted Time PHQ-9 Depression Total Score: 14 09/30/2021 8:52 AM CD T documented as of this encounter Care Teams Flat Lock Machine Operator Relationship Specialty Start Date End Date [facility] Medical PCP - General 09/21/21 [address] [place] [address] [facility] 09/21/21 [address] [place] [address] documented as of this encounter
--- OUTSIDE RECORDS SUMMARY | 2021-12-18 12:14 | XMS_ITS | Encounter Summary ---
:1980 Author Organization [place] Address [address] [facility] [place] [address] Care Team Providers Name Role Phone [facility] Primary Care Provider [phone] Sada Cagle Unavailable [phone] Reason for Visit Mental Health Outpatient (Routine) - Pending Review Specialty Diagnoses / Procedures Referred By Contact Refer red To Contact Behavioral Health Procedures Ur Adult Mh Partial Ur Adult Mh Day Tx MH IOP (6A) [facility] [address], [address] [place], [place] [address] [address] [place] Phone: [phone] Referral ID Status Reason Start Date Expiration Date Visits V isits Requested Authorized [id number] Pending 10/16/2021 10/16/2022 36 23 Review Encounter Details Date Type Department Care Team Description 10/30/2021 Hospital Encounter [facility] Demarco Weaver [facility] Mental Health & MD Omar episode of major Addiction Services [address] depressive disorder [address] without prior episode [address] [place], (H) (Primary Dx) [facility] [id number] Social History Tobacco Use Types Packs/Day [...] Augustus Ramirez Jr. : 1980 ACCT. NUMBER: [id number] DATE OF SERVICE: 10/30/21 START TIME: 11:00 AM END TIME: 11:50 AM TAR HEATER: Roby Tejada LMFT TOPIC: EBP Group: Coping Skills [facility] Adult Mental Health Day Treatment TRACK: 6A [...] telemedicine (video visit) versus in person care; jeremy my insurance or make self-payment for services [...] NAME: [facility] 1980 [id number] DATE OF SERVICE: 10/30/21 START TIME: 10:00 AM END TIME: 10:50 AM TAR HEATER: Roby Tejada LMFT TOPIC: EBP Group: Cognitive Restructuring [facility] Adult Mental Health Day Treatment TRACK: 6A [...] Augustus Ramirez Jr. : 1980 ACCT. 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 Reason for Telemedicine Visit: Services only offered telehealth Originating Site (Patient Location): Patient's home Distant Site (Provider Location): [facility]: [facility] Consent: The patient/guardian has [...] Appointment Behavioral Health Sarai Weaver MD [address] [place], [place] [address] (Wo rk) documented as of this encounter Visit Diagnoses Diagnosis Current moderate episode of major depres sive disorder without prior episode (H) - Primary documented in this encounter Additional Health Concerns Assessment Noted Time PHQ-9 Depression Total Score: 14 09/30/2021 8:52 AM CD T documented as of this encounter Care Teams Ornamental Metal Worker Apprentice Relationship Specialty Start Date End Date [facility] Medical PCP - General 09/21/21 [address] [facility] [place] [phone] [facility] 09/21/21 [address] [place] [address] documented as of this encounter
--- OUTSIDE RECORDS SUMMARY | 2021-12-18 12:14 | XMS_ITS | Encounter Summary ---
:1980 Author Organization [place] Address Counts include 234 beds at the [facility] [place] [address] Care Team Providers Name Role Phone [facility] Primary Care Provider [phone] Sada Cagle Unavailable [phone] Encounter Details Date Type Department Care Team Description 11/26/2021 Hospital Encounter [facility] MD Omar Services [address] [place], [place] [address] [address] [place], [place] [phone] (Work) [phone] Social History Tobacco Use Types Packs/Day Years [...] 12/20/2021 Appointment Behavioral Health Sarai Weaver MD [address] [place] [address] (Wo rk) documented as of this encounter Visit Diagnoses Not on filedocumented in this encounter Additional Health Concerns Assessment Noted Time PHQ-9 Depression Total Score: 14 09/30/2021 8:52 AM CD T documented as of this encounter Care Teams Java Analyst Relationship Specialty Start Date End Date [facility] PCP - General 09/21/21 [address] [place] [address] [facility] 09/21/21 [address] [place] [address] [place] [address] documented as of this encounter
--- OUTSIDE RECORDS SUMMARY | 2021-12-18 12:14 | XMS_ITS | Encounter Summary ---
:1980 Author Organization [place] Address [address] [facility] [place] [address] Care Team Providers Name Role Phone [facility] Primary Care Provider [phone] Sada Cagle Unavailable [phone] Reason for Visit Mental Health Outpatient (Routine) - Pending Review Specialty Diagnoses / Procedures Referred By Contact Refer red To Contact Behavioral Health Procedures Ur Adult Mh Partial Ur Adult Mh Day Tx MH IOP (6A) [facility] [address], [place], [place] [address] [address] [place], [place] Phone: [phone] Referral ID Status Reason Start Date Expiration Date Visits V isits Requested Authorized [id number] Pending 10/16/2021 10/16/2022 36 23 Review Encounter Details Date Type Department Care Team Description 10/25/2021 Hospital Encounter [facility] Demarco Weaver [facility] Mental [facility] & MD Omar episode of major Addiction Services [address] depressive disorder [address] without prior episode [address] ULM, (H) (Primary Dx) [facility] [phone] Social History Tobacco Use Types Packs/Day [...] Augustus Ramirez Jr. : 1980 ACCT. NUMBER: [id number] DATE OF SERVICE: 10/25/21 START TIME: 10:00 AM END TIME: 10:50 AM OPERATIONS MANAGEMENT PROFESSIONALS: Dania Rayo LICSW TOPIC: MH Wellness Group: [...] applicable laws and regulations related to telemedicine. [facility] Adult Mental Health Day Treatment TRACK: [...] a current master individualized treatment plan. See [facility] treatment plan for more information. [facility] Note - Italia Alves LGSW - 10/25/2021 11:53 AM CDT Psychotherapy Group Note PATIENT'S NAME: Augustus Ramirez Jr. : 1980 ACCT. NUMBER: [id number] DATE OF SERVICE: 10/25/21 START TIME: 11:00 AM END TIME: 11:50 AM OPERATIONS MANAGEMENT PROFESSIONALS: Italia Alves LGSW TOPIC: MH EBP Group: Behavioral Activation [facility] Mental Health Day Treatment TRACK: 6A [...] a current master individualized treatment plan. See [facility] treatment plan for more information. MATEO Rodrigues [...] Augustus Ramirez Jr. : 1980 ACCT. NUMBER: [id number] DATE OF SERVICE: 10/25/21 START TIME: 9:00 AM END TIME: 9:50 AM OPERATIONS MANAGEMENT PROFESSIONALS: Jessica Leavitt LMFT TOPIC: Process Group Diagnoses: 296.32 (F33.1) Major Depressive Disorder, Recurrent Episode, Moderate, With anxious distress Attention-Deficit/Hyperactivity Disorder 314.01 (F90.2) Combined presentation Provisional Diagnoses: Alcohol Use Disorder 303.90 (F10.20) Moderate 305.20 (F12.10) Cannabis Use Disorder Mild [facility] Mental Health Day Treatment TRACK: 6A [...] Appointment Behavioral Health Sarai Weaver MD [address], [place] [address] (Wo rk) documented as of this encounter Visit Diagnoses Diagnosis Current moderate episode of major depres sive disorder without prior episode (H) - Primary documented in this encounter Additional Health Concerns Assessment Noted Time PHQ-9 Depression Total Score: 14 09/30/2021 8:52 AM CD T documented as of this encounter Care Teams Cable Ferryboat Operator Relationship Specialty Start Date End Date [facility] Medical PCP - General 09/21/21 [address] [place], [place] [phone] [facility] 09/21/21 [address] [place] [address] documented as of this encounter
--- OUTSIDE RECORDS SUMMARY | 2021-12-18 12:14 | XMS_ITS | Encounter Summary ---
:1980 Author Organization [place] Address [address] [place] [address] Care Team Providers Name Role Phone [facility] Primary Care Provider [phone] Sada Cagle Unavailable [phone] Reason for Visit Auth/Cert Specialty Diagnoses / Procedures Referred By Contact Refer red To Contact Behavioral Health Ur Adult Mh Pa rtial [facility] orth Blding [address], [address] [place] [address] Phone: Fax: Referral ID Status Reason Start Date Expiration Date Visits Requ ested Visits Authorized [id number] 1 1 Encounter Details Date Type Department Care Team Description 10/16/2021 Hospital Encounter [facility] Demarco Weaver [facility] Mental Health & MD Omar episode of major Addiction Services [address] depressive disorder [facility] without prior episode Blsascha RAMOS, (H) (Primary Dx) [address] [place] [address] [address] [place], [place] (Work) [address] Social History Tobacco Use [...] Weaver MD - 10/16/2021 2:09 PM CDT [facility] Mental Health Outpatient Programs Provider Interval History Note Program: [facility] Program Track: 1 PATIENT'S NAME: Augustus Ramirez Jr. : 1980 ACCT. NUMBER: [id number] DATE OF SERVICE: 10/16/21 CALL/VIDEO START TIME: [...] I've learned o Mentioned specific skills, including [id number], etc. ??? I can't wait for the [...] above list was reviewed and updated in [facility] with patient today. Patient is taking [...] intensive outpatient level of care. Discharge from [facility] today, will start IOP Thursday. Current amphetamine-dextroamphetamine [...] or call after hours crisis line at [phone] or [phone]. [place] Crisis Text Line: Text [place] to [address]13 or Suicide LifeLine Chat: suicidepreventionlifeline.org/chat Follow-up: ??? [...] with questions or concerns (see below) ??? Fuse Sciencehart may be used to communicate with your provider, but this is not intended to be used for emergencies. [facility] Adult Mental Health Program lines: [facility] Hospital: [phone] Dual Disorder: [phone] Adult Day Treatment: [phone] 55+/Intensive Outpatient: [phone] Community Resources: National Suicide Prevention Lifeline: 988 from any phone, or 430-654-8442 (TTY: 631.696.2277). Call anytime for help. (www.suicidepreventionlifeline.org) National [place] on Mental Illness (www.nasreen.org): 552.819.2467 or 834-352-6172. Mental Health Association (www.mentalhealth.org): 687.292.8435 or 945-512-5352. [place] Crisis Text Line: Text [place] to 591311 Suicide LifeLine Chat: suicidepreIDSS Holdingsline.org/chat Treatment Objective(s) Addressed in This Session: The purpose of today's virtual visit is for this technical writer and editor to provide oversight of patient's care whilereceiving [...] above Originating Location (pt. Location): [place] in [place] Distant Location (provider location): Provider Remote Setting- Home Office Platform used for Video Visit: Zoom Physician has received verbal consent for a Video Visit from the patient? Yes 20 minutes spent on the date of the encounter doing chart review, patient visit, documentation and discussion with other provider(s) This document completed in part using BAASBOX dictation software. Please excuse any inadvertent word or phrase substitutions. documented in this encounter Plan of Treatment Upcoming Encounters Date Type Specialty Care Team Description 12/20/2021 Appointment Behavioral Health Sarai Weaver MD [address] [place], [place] [address] (Wo rk) documented as of this encounter Visit Diagnoses Diagnosis Current moderate episode of major depres sive disorder without prior episode (H) - Primary documented in this encounter Additional Health Concerns Assessment Noted Time PHQ-9 Depression Total Score: 14 09/30/2021 8:52 AM CD T documented as of this encounter Care Teams Passenger Coach Driver Relationship Specialty Start Date End Date [facility] Medical PCP - General 09/21/21 [address] [place], [place] [phone] [facility] 09/21/21 [address] [place] [address] documented as of this encounter
--- OUTSIDE RECORDS SUMMARY | 2021-12-18 12:14 | XMS_ITS | Encounter Summary ---
:1980 Author Organization [place] Address [address] [place] [address] Care Team Providers Name Role Phone [facility] Primary Care Provider [phone] Sada Cagle Unavailable [phone] Reason for Visit Mental Health Outpatient (Routine) - Pending Review Specialty Diagnoses / Procedures Referred By Contact Refer red To Contact Behavioral Health Procedures Ur Adult Mh Partial Ur Adult Mh Day Tx MH IOP (6A) [facility] [address], [place], [place] [address] [place], [place] Phone: [phone] Referral ID Status Reason Start Date Expiration Date Visits V isits Requested Authorized [id number] Pending 10/16/2021 10/16/2022 36 23 Review Encounter Details Date Type Department Care Team Description 10/29/2021 Hospital Encounter [facility] Demarco Weaver [facility] Mental Health & MD Omar episode of major Addiction Services [address] depressive disorder [address] without prior episode [address] [place], (H) (Primary Dx) [facility] [phone] Social History Tobacco Use Types Packs/Day [...] 12/20/2021 Appointment Behavioral Health Sarai Weaver MD [address], [place] [address] (Wo rk) documented as of this encounter Visit Diagnoses Diagnosis Current moderate episode of major depres sive disorder without prior episode (H) - Primary documented in this encounter Additional Health Concerns Assessment Noted Time PHQ-9 Depression Total Score: 14 09/30/2021 8:52 AM CD T documented as of this encounter Care Teams Hotel Registration Clerk Relationship Specialty Start Date End Date [facility] Medical PCP - General 09/21/21 [address] [address] [place], [place] [phone] [facility] 09/21/21 [address] [place] [address] documented as of this encounter
--- OUTSIDE RECORDS SUMMARY | 2021-12-18 12:14 | XMS_ITS | Encounter Summary ---
:1980 Author Organization [place] Address [address] [facility] [place] [address] Care Team Providers Name Role Phone [facility] Primary Care Provider [phone] Sada Cagle Unavailable [phone] Reason for Visit Auth/Cert Specialty Diagnoses / Procedures Referred By Contact Refer red To Contact Behavioral Health Ur Adult Mh Pa rtial [facility] orth Blding [address], [address] [place] [address] Phone: Fax: Referral ID Status Reason Start Date Expiration Date Visits Requ ested Visits Authorized [id number] 1 1 Encounter Details Date Type Department Care Team Description 10/15/2021 Hospital Encounter [facility] Demarco Weaver [facility] Mental Health & MD Omar episode of major Addiction Services [address] depressive disorder [facility] without prior episode Blsascha RAMOS, (H) (Primary Dx) [address] [place] [address] [address] [place], [place] (Work) [address] Social History Tobacco Use [...] Augustus Ramirez Jr. : 1980 ACCT. NUMBER: [id number] DATE OF SERVICE: 10/15/21 START TIME: 4:00 PM END TIME: 5:50 PM MOBILE SALES ASSISTANT: Kathleen Grajeda LMFT; Roby Tejada LMFT TOPIC: EBP Group: Social Support [facility] Adult Partial Hospitalization Program TRACK: 1 NUMBER OF PARTICIPANTS: 7 Summary of Group / Topics Discussed: Social Support: Line Maintainer Section Meeting: Patients and their support system participated [...] provided feedback with other participants. Francisco attended voip network technician night with his . Treatment Plan: Patient has a current master individualized treatment plan. See [facility] treatment plan for more information. DENNIS Garcia Group Note - Belkis Leonard RN - 10/15/2021 3:53 PM CDT Psychoeducation Group Note PATIENT'S NAME: Augustus Ramirez Jr. : 1980 ACCT. NUMBER: [id number] DATE OF SERVICE: 10/15/21 START TIME: 3:00 PM END TIME: 3:50 PM MOBILE SALES ASSISTANT: Belkis Leonard RN TOPIC: Wellness Group: Mind/Body Practice & Complementary [facility] Adult Partial Hospitalization Program TRACK: [facility] NUMBER OF PARTICIPANTS: 8 Summary [...] a current master individualized treatment plan. See [facility] treatment plan for more information. Belkis Leonard RN Group Note - Adelaide Morris OTR/L - 10/15/2021 3:43 PM CDT Psychoeducation Group Note PATIENT'S NAME: Augustus Ramirez Jr. : 1980 ACCT. NUMBER: [id number] DATE OF SERVICE: 10/15/21 START TIME: 2:00 PM END TIME: 2:50 PM MOBILE SALES ASSISTANT: Adelaide Morris OTR/L TOPIC: [facility] OT Group: Lifestyle Balance and Structure [facility] Adult Partial Hospitalization Program TRACK: [facility] NUMBER OF PARTICIPANTS: 8 Service [...] on the importance of intellectual wellness for termite control service representative cognitive health, improving adaptability, challenging current ways [...] a current master individualized treatment plan. See [facility] treatment plan for more information. MADI Liriano Group Note - Kathleen Grajeda LMFT - 10/15/2021 1:04 PM CDT Process Group Note PATIENT'S NAME: Augustus Ramirez Jr. : 1980 ACCT. 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 [facility] Adult Partial Hospitalization Program TRACK: 1 [...] Care Team Description 12/20/2021 Appointment Behavioral Health [facility] MD alexei [address], [place] [address] (Wo rk) documented as of this encounter Visit Diagnoses Diagnosis Current moderate episode of major depres sive disorder without prior episode (H) - Primary documented in this encounter Additional Health Concerns Assessment Noted Time PHQ-9 Depression Total Score: 14 09/30/2021 8:52 AM CD T documented as of this encounter Care Teams Dielectric Testing Machine Operator Relationship Specialty Start Date End Date [facility] Medical PCP - General 09/21/21 [address] [address] [place], [place] [phone] [facility] 09/21/21 [address] [place] [address] [place] [address] documented as of this encounter
--- OUTSIDE RECORDS SUMMARY | 2021-12-18 12:14 | XMS_ITS | Encounter Summary ---
:1980 Author Organization [place] Address [address] [place] [address] Care Team Providers Name Role Phone [facility] Primary Care Provider [phone] Sada Cagle Unavailable [phone] Reason for Visit Auth/Cert Specialty Diagnoses / Procedures Referred By Contact Refer red To Contact Behavioral Health Ur Adult Mh Pa rtial [facility] orth Blding [address], [address] [place] [address] Phone: Fax: Referral ID Status Reason Start Date Expiration Date Visits Requ ested Visits Authorized [id number] 1 1 Encounter Details Date Type Department Care Team Description 10/09/[address] [facility] Demarco Weaver [facility] Mental Health & MD Omar episode of major Addiction Services [address] depressive disorder [facility] without prior episode Blsascha RAMOS, (H) (Primary Dx) [address] [place] [address] [address] [place], [place] (Work) [address] Social History Tobacco Use [...] Augustus Ramirez Jr. : 1980 ACCT. NUMBER: [id number] DATE OF SERVICE: 10/09/21 START TIME: 2:00 PM END TIME: 2:50 PM FIELD FOREMAN: Roby Tejada LMFT TOPIC: EBP Group: Relationship Skills [facility] Adult Partial Hospitalization Program TRACK: [facility] NUMBER OF PARTICIPANTS: 8 Summary of Group [...] a current master individualized treatment plan. See [facility] treatment plan for more information. DENNIS Peterson Group Note - Adelaide Morris OTR/L - 10/09/2021 2:44 PM CDT Psychoeducation Group Note PATIENT'S NAME: Augustus Ramirez Jr. : 1980 ACCT. NUMBER: [id number] DATE OF SERVICE: 10/09/21 START TIME: 11:00 AM END TIME: 11:50 AM FIELD FOREMAN: Adelaide Morris OTR/L TOPIC: MH Life Skills Group: Cognitive Functioning [facility] Adult Partial Hospitalization Program TRACK: [facility] NUMBER OF PARTICIPANTS: 7 Service Modality: Video [...] on the importance of intellectual wellness for exterminator cognitive health, improving adaptability, challenging current ways [...] a current master individualized treatment plan. See [facility] treatment plan for more information. OLY Liriano/Yanna Group Note - Estefania Ellis OTR/L - 10/09/2021 2:04 PM CDT OT Clinic Group Note PATIENT'S NAME: Augustus Ramirez Jr. : 1980 ACCT. NUMBER: [id number] DATE OF SERVICE: 10/09/21 START TIME: 1:00 PM END TIME: 1:50 PM FIELD FOREMAN: Estefania Ellis OTR/L TOPIC: [facility] OT Group: Occupational Therapy Clinic [facility] Adult Partial Hospitalization Program TRACK: 1 NUMBER OF PARTICIPANTS: 7 Service Modality: Video Visit Telemedicine Visit: The patient's condition can be safely assessed and treated via synchronous audioand visual telemedicine encounter. Reason for Telemedicine Visit: Services only offered telehealth Originating Site (Patient Location): Patient's home Distant Site (Provider Location): [facility] Outpatient Setting: Partial Hospitalization Program, [facility] Consent: The patient/guardian has verbally consented to: [...] a current master individualized treatment plan. See [facility] treatment plan for more information. MADI Melgar Group Note - Belkis Leonard RN - 10/09/2021 10:58 AM CDT Psychoeducation Group Note PATIENT'S NAME: Augustus Ramirez Jr. : 1980 ACCT. NUMBER: [id number] DATE OF SERVICE: 10/09/21 START TIME: 10:00 AM END TIME: 10:50 AM FIELD FOREMAN: Belkis Leonard RN TOPIC: Wellness Group: Mental Health Maintenance [facility] Adult Partial Hospitalization Program TRACK: [facility] [place] NUMBER OF PARTICIPANTS: 7 Summary of Group [...] a current master individualized treatment plan. See [facility] treatment plan for more information. Belkis Leonard RN Group Note - Kathleen Grajeda LMFT - 10/09/2021 9:05 AM CDT Process Group Note PATIENT'S NAME: Augustus Ramirez Jr. : 1980 ACCT. 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 Adult Partial Hospitalization Program TRACK: 1 [...] Type Specialty Care Team Description 12/20/2021 Appointment [facility] Sarai Weaver MD [address] [place] [address] (Wo rk) documented as of this encounter Visit Diagnoses Diagnosis Current moderate episode of major depres sive disorder without prior episode (H) - Primary documented in this encounter Additional Health Concerns Assessment Noted Time PHQ-9 Depression Total Score: 14 09/30/2021 8:52 AM CD T documented as of this encounter Care Teams Loading And Unloading Supervisor Relationship Specialty Start Date End Date [facility] PCP - General 09/21/21 [address] [place] [address] S[facility] 09/21/21 [address] [place] [address] [place] [address] documented as of this encounter
--- OUTSIDE RECORDS SUMMARY | 2021-12-18 12:14 | XMS_ITS | Encounter Summary ---
:1980 Author Organization [place] Address [address] [facility] [place] [address] Care Team Providers Name Role Phone [facility] Primary Care Provider [phone] Sada Cagle Unavailable [phone] Reason for Visit Auth/Cert Specialty Diagnoses / Procedures Referred By Contact Refer red To Contact Behavioral Health Ur Adult Mh Pa rtial [facility] orth Blding [address], [address] [place] [address] Phone: Fax: Referral ID Status Reason Start Date Expiration Date Visits Requ ested Visits Authorized [id number] 1 1 Encounter Details Date Type Department Care Team Description 10/16/2021 Hospital Encounter [facility] Demarco Weaver [facility] Mental Health & MD Omar episode of major Addiction Services [address] depressive disorder [facility] without prior episode Blsascha RAMOS, (H) (Primary Dx) [address] [place] [address] [address] [place], [place] (Work) [address] Social History Tobacco Use [...] Augustus Ramirez Jr. : 1980 ACCT. NUMBER: [id number] DATE OF SERVICE: 10/16/21 START TIME: 2:00 PM END TIME: 2:50 PM WORKPLACE REHABILITATION OFFICER: Roby Tejada LMFT TOPIC: EBP Group: Coping Skills [facility] Adult Partial Hospitalization Program TRACK: [facility] NUMBER OF PARTICIPANTS: 7 Summary of Group [...] well wishes from the group on his [employer] graduation day. Demonstrated understanding of topics discussed through group discussion and participation, Expressedunderstanding of the relevance / importance of coping skills at distressing times in life, Practiced2-3 new coping skills in session and Identified / Expressed personal readiness to practice new coping skills Treatment Plan: Patient has See [facility] Treatment Plan - Patient is discharging. DENNIS Peterson Group Note - Adelaide Morris OTR/L - 10/16/2021 1:58 PM CDT OT Clinic Group Note PATIENT'S NAME: [facility]ierz Jr. [facility] 1980 [facility]: [id number] DATE OF SERVICE: 10/16/21 START TIME: 1:00 PM END TIME: 1:50 PM WORKPLACE REHABILITATION OFFICER: Adelaide Morris OTR/L TOPIC: [facility] OT Group: Occupational Therapy Clinic [facility] Adult Partial Hospitalization Program TRACK: [facility] [place] NUMBER OF PARTICIPANTS: 6 Service Modality: Video [...] Augustus Ramirez Jr. : 1980 ACCT. NUMBER: [id number] DATE OF SERVICE: 10/16/21 START TIME: 11:00 AM END TIME: 11:50 AM WORKPLACE REHABILITATION OFFICER: Estefania Ellis OTR/L TOPIC: [facility] OT Group: Lifestyle Balance and Structure [facility] Adult Partial Hospitalization Program TRACK: 1 NUMBER OF PARTICIPANTS: 9 Service Modality: Video Visit Telemedicine Visit: The patient's condition can be safely assessed and treated via synchronous audioand visual telemedicine encounter. Reason for Telemedicine Visit: Services only offered telehealth Originating Site (Patient Location): Patient's home Distant Site (Provider Location): [facility] Cons[facility]: The patient/guardian has verbally [...] psychiatric recovery Treatment Plan: Patient has See [facility] Treatment Plan - Patient is discharging. See discharge summary for additional information. Francisco will start the track on 10/18/2021 for additional support and treatment. MADI Melgar Group Note - Belkis Leonard RN - 10/16/2021 12:11 PM CDT Psychoeducation Group Note PATIENT'S NAME: Augustus Ramirez Jr. : 1980 ACCT. NUMBER: [id number] DATE OF SERVICE: 10/16/21 START TIME: 10:00 AM END TIME: 10:50 AM WORKPLACE REHABILITATION OFFICER: Belkis Leonard RN TOPIC: Wellness Group: Brain Health [facility] Adult Partial Hospitalization Program TRACK: [facility] [place] NUMBER OF PARTICIPANTS: 9 Summary of Group [...] body responds to it ? Listed the director long term care effects and increased risks for chronic disease [...] PATIENT'S NAME: [facility] Jr. : 1980 [facility]: [id number] DATE OF SERVICE: 10/16/21 START TIME: 9:00 AM END TIME: 9:50 AM WORKPLACE REHABILITATION OFFICER: Kathleen Grajeda LMFT TOPIC: Process Group Diagnoses: [...] Appointment Behavioral Health Sarai Weaver MD [address], [place] [address] (Wo rk) documented as of this encounter Visit Diagnoses Diagnosis Current moderate episode of major depres sive disorder without prior episode (H) - Primary documented in this encounter Additional Health Concerns Assessment Noted Time PHQ-9 Depression Total Score: 14 09/30/2021 8:52 AM CD T documented as of this encounter Care Teams Electrician Ship Relationship Specialty Start Date End Date [facility] PCP - General 09/21/21 [address] [place], [place] [phone] S[facility] 09/21/21 [address] [place] [address] [place] [address] documented as of this encounter
--- OUTSIDE RECORDS SUMMARY | 2021-12-18 12:14 | XMS_ITS | Encounter Summary ---
:1980 Author Organization [place] Address [address] [place] [address] Care Team Providers Name Role Phone [facility] Primary Care Provider [phone] Sada Cagle Unavailable [phone] Reason for Visit Mental Health Outpatient (Routine) - Pending Review Specialty Diagnoses / Procedures Referred By Contact Refer red To Contact Behavioral Health Procedures Ur Adult Mh Partial Ur Adult Mh Day Tx MH IOP (6A) [facility] [address], [address] [place], [place] [address] [address] [place], [place] Phone: [phone] Referral ID Status Reason Start Date Expiration Date Visits V isits Requested Authorized [id number] Pending 10/16/2021 10/16/2022 36 23 Review Encounter Details Date Type Department Care Team Description 11/13/2021 Hospital Encounter [facility] Demarco Weaver [facility] Mental [facility] & MD Omar episode of major Addiction Services [address] depressive disorder [address] without prior episode [address] [place], (H) (Primary Dx) [facility] [id number] Social History Tobacco Use Types Packs/Day [...] Augustus Ramirez Jr. : 1980 ACCT. NUMBER: [id number] DATE OF SERVICE: 11/13/21 START TIME: 11:00 AM END TIME: 11:50 AM CERTIFIED OPHTHALMIC MEDICAL TECHNICIAN: Roby Tejada LMFT TOPIC: EBP Group: Self-Awareness [facility] Adult Mental Health Day Treatment TRACK: [...] skills. Patient Session Goals / Objectives: ??? [place] components of self-compassion ??? Identify ways to [...] View Hospital treatment plan for more information. DENNIS Peterson Group Note - Roby Tejada LMFT - 11/13/2021 1:32 PM CDT Psychotherapy Group Note PATIENT'S NAME: Augustus Ramirez Jr. : 1980 ACCT. NUMBER: [id number] DATE OF SERVICE: 11/13/21 START TIME: 10:00 AM END TIME: 10:50 AM CERTIFIED OPHTHALMIC MEDICAL TECHNICIAN: Roby Tejada LMFT TOPIC: EBP Group: Emotions Management [facility] Adult Mental Health Day Treatment TRACK: [...] View Hospital treatment plan for more information. DENNIS Peterson Group Note - Sophie Santiago LICSW - 11/13/2021 10:38 AM CDT Process Group Note PATIENT'S NAME: Augustus aRmirez Jr. : 1980 ACCT. 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 Reason for Telemedicine Visit: Services only offered telehealth Originating Site (Patient Location): Patient's home Distant Site (Provider Location): [facility]: [facility] Consent: The patient/guardian has verbally consented to: [...] Care Team Description 12/20/2021 Appointment Behavioral Health [facility] MD alexei [address], [place] [address] (Wo rk) documented as of this encounter Visit Diagnoses Diagnosis Current moderate episode of major depres sive disorder without prior episode (H) - Primary documented in this encounter Additional Health Concerns Assessment Noted Time PHQ-9 Depression Total Score: 14 09/30/2021 8:52 AM CD T documented as of this encounter Care Teams Entry Level Sales Consultant Relationship Specialty Start Date End Date [facility] PCP - General 09/21/21 [address] [place], [place] [id number] [facility] 09/21/21 [address] [place] [address] [place] [address] documented as of this encounter
--- OUTSIDE RECORDS SUMMARY | 2021-12-18 12:14 | XMS_ITS | Encounter Summary ---
:1980 Author Organization [place] Address [address] [facility] [address] Care Team Providers Name Role Phone [facility] Primary Care Provider [phone] Sada Cagle Unavailable [phone] Reason for Visit Auth/Cert Specialty Diagnoses / Procedures Referred By Contact Refer red To Contact Behavioral Health Ur Adult Mh Pa rtial [facility] orth Blding [address], [address] [place] [address] Phone: Fax: Referral ID Status Reason Start Date Expiration Date Visits Requ ested Visits Authorized [id number] 1 1 Encounter Details Date Type Department Care Team Description 10/11/2021 Hospital Encounter [facility] Demarco Weaver [facility] Mental Health & MD Omar episode of major Addiction Services [address] depressive disorder [facility] without prior episode Blsascha RAMOS, (H) (Primary Dx) [address] [place] [address] [address] [place], [place] (Work) [address] Social History Tobacco Use [...] Augustus Ramirez Jr. : 1980 ACCT. NUMBER: [id number] DATE OF SERVICE: 10/11/21 START TIME: 2:00 PM END TIME: 2:50 PM DATA WAREHOUSE ADMINISTRATOR: Hubert David RN TOPIC: Wellness Group: Brain [...] applicable laws and regulations related to telemedicine. [facility] Adult Partial Hospitalization Program TRACK: [facility] NUMBER OF PARTICIPANTS: 8 Summary [...] David RN Group Note - Estefania Ellis OTR/Yanna - 10/11/2021 2:52 PM CDT Psychoeducation Group Note PATIENT'S NAME: Augustus Ramirez Jr. : 1980 ACCT. NUMBER: [id number] DATE OF SERVICE: 10/11/21 START TIME: 1:00 PM END TIME: 1:50 PM DATA WAREHOUSE ADMINISTRATOR: Estefania Ellis OTR/L TOPIC: [facility] OT Group: Lifestyle Balance and Structure [facility] Adult Partial Hospitalization Program TRACK: 1 NUMBER OF PARTICIPANTS: 7 Service Modality: Video Visit Telemedicine Visit: The patient's condition can be safely assessed and treated via synchronous audioand visual telemedicine encounter. Reason for Telemedicine Visit: Services only offered telehealth Originating Site (Patient Location): Patient's home Distant Site (Provider Location): [facility] Consent: The patient/guardian has verbally [...] Augustus Ramirez Jr. : 1980 ACCT. NUMBER: [id number] DATE OF SERVICE: 10/11/21 START TIME: 11:00 AM END TIME: 11:50 AM DATA WAREHOUSE ADMINISTRATOR: Kathleen Grajeda LMFT TOPIC: EBP Group: Relationship Skills [facility] Adult Partial Hospitalization Program TRACK: 1 NUMBER [...] [facility]'S NAME: [facility]. [facility] 1980 [id number] DATE OF SERVICE: 10/11/21 START TIME: 10:00 AM END TIME: 10:50 AM DATA WAREHOUSE ADMINISTRATOR: Kathleen Grajeda LMFT TOPIC: EBP Group: Coping Skills [facility] Adult Partial Hospitalization Program TRACK: 1 NUMBER [...] Augustus Ramirez Jr. : 1980 ACCT. 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 [facility] Adult Partial Hospitalization Program TRACK: 1 NUMBER [...] Appointment Behavioral Health Sarai Weaver MD [address], [place] [address] (Wo rk) documented as of this encounter Visit Diagnoses Diagnosis Current moderate episode of major depres sive disorder without prior episode (H) - Primary documented in this encounter Additional Health Concerns Assessment Noted Time PHQ-9 Depression Total Score: 14 09/30/2021 8:52 AM CD T documented as of this encounter Care Teams Kiln Placer Relationship Specialty Start Date End Date [facility] Medical PCP - General 09/21/21 [address] [place], [place] [phone] [facility] 09/21/21 [address] [place] [address] [place] [address] documented as of this encounter
--- OUTSIDE RECORDS SUMMARY | 2021-12-18 12:14 | XMS_ITS | Encounter Summary ---
:1980 Author Organization [place] Address [address] [place] [address] Care Team Providers Name Role Phone [facility] Primary Care Provider [phone] Sada Cagle Unavailable [phone] Reason for Visit Auth/Cert Specialty Diagnoses / Procedures Referred By Contact Refer red To Contact Behavioral Health Ur Adult Mh Pa rtial [facility] orth Blding [address], [address] [place] [address] Phone: Fax: Referral ID Status Reason Start Date Expiration Date Visits Requ ested Visits Authorized [id number] 1 1 Encounter Details Date Type Department Care Team Description 10/10/2021 Hospital Encounter [facility] Demarco Weaver [facility] Mental Health & MD Omar episode of major Addiction Services [address] depressive disorder [facility] without prior episode Blsascha RAMOS, (H) (Primary Dx) [address] [place] [address] [address] [place], [place] (Work) [address] Social History Tobacco Use [...] Weaver MD - 10/10/2021 2:02 PM CDT [facility] [place] Adult Mental Health Outpatient Programs Provider Interval History Note Program: [facility] Program Track: 1 PATIENT'S NAME: Augustus Ramirez Jr. : 1980 ACCT. NUMBER: [id number] DATE OF SERVICE: 10/10/21 CALL/VIDEO START TIME: [...] or call after hours crisis line at [phone] or [phone]. [place] Crisis Text Line: Text [place] to 473570 or Suicide LifeLine Chat: suicidepreventionlifeline.org/chat Follow-up: ??? [...] with questions or concerns (see below) ??? Rift.iot may be used to communicate with your provider, but this is not intended to be used for emergencies. [facility] Adult Mental Health Program lines: [facility]: [phone] Dual Disorder: [phone] Adult Day Treatment: [phone] 55+/Intensive Outpatient: [phone] Community Resources: National Suicide Prevention Lifeline: 988 from any phone, or 137-943-1504 (TTY: 894.933.5152). Call anytime for help. (www.suicidepreventionlifeline.org) National [address] on Mental Illness (www.nasreen.org): 862.575.5080 or 847-802-9863. Mental Health Association (www.mentalhealth.org): 930.451.4926 or 825-677-3514. [place] Crisis Text Line: Text [place] to 291285 Suicide LifeLine Chat: suicideUbisense.org/chat Treatment Objective(s) Addressed in This Session: The purpose of today's virtual visit is for this personal lines underwriter to provide oversight of patient's care [...] above Originating Location (pt. Location): Home in [place] Distant Location (provider location): Provider Remote Setting- Home Office Platform used for Video Visit: Zoom Physician has received verbal consent for a Video Visit from the patient? Yes 25 minutes spent on the date of the encounter doing chart review, patient visit, documentation and discussion with other provider(s) This document completed in part using [employer] Mobile App dictation software. Please excuse any inadvertent word or phrase substitutions. documented in this encounter Plan of Treatment Upcoming Encounters Date Type Specialty Care Team Description 12/20/2021 Appointment Behavioral Health Sarai Weaver MD [address] [place], [place] [phone] (Wo rk) documented as of this encounter Visit Diagnoses Diagnosis Current moderate episode of major depres sive disorder without prior episode (H) - Primary documented in this encounter Additional Health Concerns Assessment Noted Time PHQ-9 Depression Total Score: 14 09/30/2021 8:52 AM CD T documented as of this encounter Care Teams Sports Analyst Relationship Specialty Start Date End Date [facility] Medical PCP - General 09/21/21 [address] [place] [address] [facility] 09/21/[address] [place] [address] documented as of this encounter
--- OUTSIDE RECORDS SUMMARY | 2021-12-18 12:15 | XMS_ITS | Encounter Summary ---
:1980 Author Organization [place] Address [address] [place] [address] Care Team Providers Name Role Phone Sada Cagle Primary Care Provider [phone] Reason for Visit Reason Comments Other Encounter Details Date Type Department Care Team Description 01/16/2013 Emergency [facility] Perico Phan MD Penile lesion (Primary [facility] Emergency Dep t EMERGENCY PHYSICIANS Dx) [address] [place], [place] [address] [facility] [address] [place] [address] [phone] (Wo rk) Social History Tobacco Use Types Packs/Day Years Used Date Smoking Tobacco: Every Day Alcohol Use Standard Drinks/Week Comments Yes 0 (1 standard drink = 0.6 oz pure alcoho l) Sex Assigned at Date Recorded Not on file documented as of this encounter Last Filed Vital Signs Vital Sign Reading Time Taken Comments Blood Pressure 129/90 01/16/2013 8:02 PM NURSING TECH Pulse - - Temperature 36.9 ??C (98.5 ??F) 01/16/2013 8:02 PM NURSING TECH Respiratory Rate 18 01/16/2013 8:02 PM NURSING TECH Oxygen Saturation 99% 01/16/2013 8:02 PM NURSING TECH Inhaled Oxygen Concentration - - Weight 81.6 kg (180 lb) 01/16/2013 8:02 PM NURSING TECH Height - - Body Mass Index - [...] Resource Center http://www.ashastd.org/herpes/herpes_overview.cfm ; or call the Kaymu[employer]pk Hotline: 641.105.8608. Get Prompt Medical Attention if any of the following occur: ?? Inability to urinate due to pain ?? Swelling or increasing redness in the genital area ?? Unusual drowsiness, weakness or confusion ?? Headache, stiff neck ?? Discharge from the vagina or penis ?? Increasing back or abdominal pain ?? Rash or joint pain ?? [id number] [place] [address]. All rights reserved. This information is not intended as a substitute for professional medical care. Always follow your healthcare professional's instructions. 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 He is not [...] Plan: As outlined above. Omar Conklin 01/16/2013 [facility] EMERGENCY DEPARTMENT I, Omar Conklin, am serving as a scribe at 8:14 PM on 01/16/2013 to document services personally performed by Dr. Phan, based on my observations and the provider's statements to me. Perico Phan MD 01/16/132148 Perico Phan MD 01/16/132149 ING TECH Augustus Mi, RN - 01/16/2013 8:03 PM CST Patient alert and oriented x 4. ABC's intact. States he has a dark spot that is becoming white on his glands penis. Onset yesterday and has changed since then. ING TECH documented in this encounter Plan of Treatment Upcoming Encounters Date Type Specialty Care Team Description 12/20/2021 Appointment Behavioral Health [facility] MD alexei [address] [place], [place] [address] (Wo rk) documented as of this encounter Visit Diagnoses Diagnosis Penile lesion - Primary Other specified disorder of penis documented in this encounter Care Teams Family Assistant Relationship Specialty Start Date End Date Sada Cagle PCP - General Family Practice 01/16/13 09/20/[address] [place] [address] documented as of this encounter
--- OUTSIDE RECORDS SUMMARY | 2021-12-18 12:15 | XMS_ITS | Encounter Summary ---
:1980 Author Organization [place] Address [facility] [place] [address] Care Team Providers Name Role Phone [facility] Primary Care Provider Sada Cagle Unavailable [phone] Encounter Details Date Type Department Care Team Description 10/01/2021 Telephone [facility] Doc Leonard RN & Addiction Services [place] [address], [address] [place], [place] [phone] Social History Tobacco Use [...] 12/20/2021 Appointment Behavioral Health Sarai Weaver MD [address] [place] [address] (Wo rk) documented as of this encounter Visit Diagnoses Not on filedocumented in this encounter Additional Health Concerns Assessment Noted Time PHQ-9 Depression Total Score: 14 09/30/2021 8:52 AM CD T documented as of this encounter Care Teams Aerospace Project Manager Relationship Specialty Start Date End Date [facility] PCP - General 09/21/21 [address] [place], [place] [phone] Sada Cagle Family Practice 09/21/21 [address] [place] [address] [place] [address] documented as of this encounter
--- OUTSIDE RECORDS SUMMARY | 2021-12-18 12:15 | XMS_ITS | Encounter Summary ---
:1980 Author Organization [place] Address [address] [place] [address] Care Team Providers Name Role Phone [facility] Primary Care Provider [phone] Sada Cagle Unavailable [phone] Reason for Visit Reason Onset Date Comments MH/CD Inpatient 09/23/2021 Encounter Details Date Type Department Care Team Description 09/23/2021 Telephone [facility] Generic, Behavioral MH/ CD Inpatient Behavioral Health In [facility] [address] [address] Social History Tobacco Use Types Packs/Day [...] Miscellaneous Notes Telephone Encounter - Evonne Hudson R - 09/23/2021 8:25 AM CDT R: [facility] Access Inpatient Bed Call Log 09/23/2021 done at 7:40am Adults: ?? [facility] is posting 0 beds. ?? [facility] is posting 0 beds. ?? [facility] is posting 0 beds. ?? [facility] is posting 0 beds. ?? [facility] is posting 0 beds. ?? [facility] is posting 0 beds. ?? [facility] is posting 0 beds. ?? [facility] is posting 0 beds. ?? [facility] is posting 0 beds. Mixed unit 12+. Low acuity only. ?? [facility] is positing 0 beds. No aggression. ?? [facility] is posting 0 beds. ?? [facility] is posting 0 beds. Low acuity only. ?? [facility] is posting 0 beds. ?? [facility] is posting 0 beds. Low acuity. ?? [facility] is posting 0 beds. 72 hr hold required. ?? [facility] is posting 0 beds. ?? [facility] is posting 0 beds. Vol only, No Hx of aggression, violence or assault. No sexual offenders. No 72 hr holds. ?? [facility] is posting 3 beds. (Must have the cognitive ability to do programming. No aggressive or violent behavior or recent HX in the last 2 yrs. MH must be primary.) ?? [facility] is posting 0 beds. Low acuity only. Violence and aggression capped. ?? [facility] is [facility] 0 beds. Low acuity, Neg Covid. ?? [facility] is posting 0 beds. Covid neg. Vol only. Combined adolescent and adult unit. No aggressive or violent behavior. No registered sex offenders. ?? [facility] is posting 4 beds. Call for details.- Low Acuity ?? [facility] is posting 2 beds. -Low Acuity 8:44a Intake called Rose Paul) to inquire about beds available. Rose [...] discharge home today. 11:05a Intake called Rose SantoroYo) to inform pt no longer needs review. 11:07a Intake no longer needing to search for IP MH bed placement. Telephone Encounter - Jaimee Oakley - 09/23/2021 1:54 AM CDT 0154 Bed Search Update: [facility] beds available [place]-No beds available [facility]-No beds available [place]-No beds available [facility]-No beds available [facility]-No beds available [facility] [place]-No beds available [facility]-No beds available [facility] [place]-No beds available [facility]-No beds available. Low acuity only. Mixed unit adol/adult/helena [facility]-No beds available [facility] beds available [facility]-No beds available [place]-No beds available [facility]-No beds available [facility] beds available [facility]-No beds available. Must be on a 72 HH. No intake after 10 PM. [facility] [place]-No beds available [facility] [place]-Voluntary/LA JOLLA only. No hx violence or sexual assault. [facility] [place]-No beds available [facility] [place]-No beds available [place]-No recent hx violence/aggression. Must be able to program in groups. [facility] [place]-Low acuity only. [facility]-No beds available. No recent violence or aggression. [facility] [place]-No beds available [facility] [place]-No beds available [place] [facility]???s-[phone] No answer [facility]-No beds available documented in this encounter Plan of Treatment Upcoming Encounters Date Type Specialty Care Team Description 12/20/2021 Appointment Behavioral Health Sarai Weaver MD [address] [place], [place] [address] (Wo rk) documented as of this encounter Visit Diagnoses Not on filedocumented in this encounter Care Teams District Sales Representative Relationship Specialty Start Date End Date [facility] PCP - General 09/21/21 [address] [place], [place] [phone] Sada Cagle Family Practice 09/21/21 [address] [place] [address] [place] [address] documented as of this encounter
--- OUTSIDE RECORDS SUMMARY | 2021-12-18 12:15 | XMS_ITS | Encounter Summary ---
:1980 Author Organization [place] Address [address] [place] [address] Care Team Providers Name Role Phone [facility] Primary Care Provider [phone] Sada Cagle Unavailable [phone] Reason for Visit Auth/Cert Specialty Diagnoses / Procedures Referred By Contact Refer red To Contact Behavioral Health Ur Adult Mh Pa rtial [facility] orth [place]lding [address], [address] [place] [address] Phone: Fax: Referral ID Status Reason Start Date Expiration Date Visits Requ ested Visits Authorized [id number] 1 1 Encounter Details Date Type Department Care Team Description 10/02/2021 Hospital Encounter [facility] Demarco Weaver severe Mental Health & MD Omar episode of major Addiction Services [address] depressive disorder [facility] without psychotic Blding [facility] without [address] [place] [address] prior episode (H) [address] (Primary Dx) [place], [place] (Work) [address] Social History Tobacco Use [...] Weaver MD - 10/02/2021 2:30 PM CDT [facility] Adult Mental Health Outpatient Programs Provider Intake Note Program: [facility] Program Track: 1 Patient: Augustus Ramirez Jr. : 1980 Acct. No.: [id number] Date of Service: 10/02/21 Session Start Time: 1425 Session End Time: 1457 Diagnostic Assessment Date: 09/30/2021 Outpatient Providers: Current Outpatient Psychiatric Provider: none Current Outpatient Individual Psychotherapist: none Primary Care Provider: [facility] Identifying Data: Augustus Ramirez Jr., a 41 year oldzkc-ntld-eja with history of depression, ADHD, presents for [...] above list was reviewed and updated in [facility] with patient today. Patient is taking [...] or call after hours crisis line at [phone] or [phone]. [place] Crisis Text Line: Text [place] to [address]15 or Suicide LifeLine Chat: suicidepreventionlifeline.org/chat Follow-up: ??? [...] not intended to be used for emergencies. [facility] Adult Mental Health Program lines: [facility] Hospital: [phone] Dual Disorder: [phone] Adult Day Treatment: [phone] 55+/Intensive Outpatient: [phone] Community Resources: National Suicide Prevention Lifeline: 988 from any phone, or 238-527-5421 (TTY: 961.891.7809). Call anytime for help. (www.suicidepreventionlifeline.org) National [place] on Mental Illness (www.nasreen.org): 292.139.6897 or 887-139-3132. Mental Health Association (www.mentalhealth.org): 284.174.8531 or 018-151-9196. [place] Crisis Text Line: Text [place] to [address] Suicide LifeLine Chat: suicideCompact Media Groupline.org/chat Treatment Objective(s) Addressed in This Session: One [...] provider(s) This document completed in part using SeekSherpa dictation software. Please excuse any inadvertent word or phrase substitutions. documented in this encounter Plan of Treatment Upcoming Encounters Date Type Specialty Care Team Description 12/20/2021 Appointment Behavioral Health Sarai Weaver MD [address] [place], [place] [address] (Wo rk) documented as of this encounter Visit Diagnoses Diagnosis Current severe episode of major depressi ve disorder without psychotic features without prior episode (H) - Primary documented in this encounter Additional Health Concerns Assessment Noted Time PHQ-9 Depression Total Score: 14 09/30/2021 8:52 AM CD T documented as of this encounter Care Teams Fireworks Assembly Supervisor Relationship Specialty Start Date End Date [facility] PCP - General 09/21/21 [address] [address] [place], [place] [phone] Sada Cagle Family Practice 09/21/21 [address] [address] documented as of this encounter
--- OUTSIDE RECORDS SUMMARY | 2021-12-18 12:15 | XMS_ITS | Encounter Summary ---
:1980 Author Organization [place] Address [facility] [place] [address] Care Team Providers Name Role Phone [facility] Primary Care Provider [phone] Sada Cagle Unavailable [phone] Reason for Visit Auth/Cert Specialty Diagnoses / Procedures Referred By Contact Refer red To Contact Behavioral Health Ur Adult Mh Pa rtial [facility] orth Blding [address], [address] [place] [address] Phone: Fax: Referral ID Status Reason Start Date Expiration Date Visits Requ ested Visits Authorized [id number] 1 1 Encounter Details Date Type Department Care Team Description 10/02/2021 Hospital Encounter [facility] MD Omar Services [address] [place], [place] [address], [phone] (Work) [place] [address] Social History Tobacco Use Types [...] Augustus Ramirez Jr. : 1980 ACCT. NUMBER: [id number] DATE OF SERVICE: 10/02/21 START TIME: 2:00 PM END TIME: 2:20 PM PASSENGER CAR INSPECTOR: Roby Tejada LMFT TOPIC: EBP Group: Coping Skills [facility] Adult Partial Hospitalization Program TRACK: [facility] NUMBER OF PARTICIPANTS: 7 Summary [...] to discuss thoughts and feelings about graduating [facility] today and that patient has [...] during process time but was meeting with [facility] psychiatrist during the presentation of [...] Augustus Ramirez Jr. : 1980 ACCT. NUMBER: [id number] DATE OF SERVICE: 10/02/21 START TIME: 11:00 AM END TIME: 11:50 AM PASSENGER CAR INSPECTOR: Estefania Ellis OTR/L TOPIC: [facility] OT Group: Lifestyle Balance and Structure [facility] Adult Partial Hospitalization Program TRACK: 1 NUMBER OF PARTICIPANTS: 7 Service Modality: Video Visit Telemedicine Visit: The patient's condition can be safely assessed and treated via synchronous audioand visual telemedicine encounter. Reason for Telemedicine Visit: Services only offered telehealth Originating Site (Patient Location): Patient's home Distant Site (Provider Location): [facility] [...] Augustus Ramirez Jr. : 1980 ACCT. NUMBER: [id number] DATE OF SERVICE: 10/02/21 START TIME: 1:00 PM END TIME: 1:50 PM PASSENGER CAR INSPECTOR: Adelaide Morris OTR/L TOPIC: [facility] OT Group: Occupational Therapy Clinic [facility] Adult Partial Hospitalization Program TRACK: [facility] NUMBER OF PARTICIPANTS: 7 Service Modality: Video [...] Augustus Ramirez Jr. : 1980 ACCT. NUMBER: [id number] DATE OF SERVICE: 10/02/21 START TIME: 10:00 AM END TIME: 10:50 AM PASSENGER CAR INSPECTOR: Belkis Leonard RN TOPIC: Wellness Group: Brain Health [facility] Adult Partial Hospitalization Program TRACK: [facility] 1 NUMBER OF PARTICIPANTS: 7 Summary of Group / Topics Discussed: Brain Health: Pathophysiology of stress and anxiety: Patients were educated on the difference between stress, chronic stress, and anxiety. The anatomy and pathophysiology of the body/brain were reviewed to illustrate the immediate effects of stress/anxiety in the body and the detention effects and increased risks for chronic disease that come from unmanaged stress/anxiety. Self-coping strategies to manage symptoms of stress were reviewed and pharmacologic, psychotherapeutic, and complementary treatment options were discussed. Patient Session Goals / Objectives: ? Described the differences between stress and anxiety and how the body responds to it ? Listed the terminal operator effects and increased risks for chronic disease [...] [facility] treatment plan for more information. Belkis Leonard RN Group Note - Kathleen Grajeda LMFT - 10/02/2021 9:28 AM CDT Process Group Note PATIENT'S NAME: Augustus Ramirez Jr. : 1980 ACCT. 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 [facility] Adult Partial Hospitalization Program TRACK: 1 [...] Appointment Behavioral Health Sarai Weaver MD [address] [place] [address] (Wo rk) documented as of this encounter Visit Diagnoses Not on filedocumented in this encounter Additional Health Concerns Assessment Noted Time PHQ-9 Depression Total Score: 14 09/30/2021 8:52 AM CD T documented as of this encounter Care Teams Wafer Substrate Tester Relationship Specialty Start Date End Date [facility] PCP - General 09/21/21 [address] [place] [address] Sada Cagle [facility] 09/21/21 [address] [place] [address] [place] [address] documented as of this encounter
--- OUTSIDE RECORDS SUMMARY | 2021-12-18 12:15 | XMS_ITS | Encounter Summary ---
:1980 Author Organization [place] Address [address] [place] [address] Care Team Providers Name Role Phone [facility] Primary Care Provider [phone] Sada Cagle Unavailable [phone] Reason for Visit Reason Onset Date Comments MH/CD Inpatient 09/22/2021 Encounter Details Date Type Department Care Team Description 09/22/2021 Telephone [facility] Generic, Behavioral MH/ CD Inpatient Behavioral Health In [facility] MD Elin [address] [place] [address] Social History Tobacco Use Types Packs/Day [...] Tristan Esparza - 09/22/2021 3:07 PM CDT [facility] Access Inpatient Bed Call Log 09/22/2021 done at 3pm Adults: 72HH ??? [facility] is posting 0 beds. ??? [facility] is posting 0 beds. ??? [facility] is posting 0 beds. ??? [facility] is [facility] beds. ??? [facility] is posting 0 beds. ??? [facility] is posting 0 beds. ??? [facility] is posting 0 beds. ??? [facility] is posting 0 beds. ??? [facility] is posting 0 beds. Mixed unit 12+. Low acuity only. ??? [facility] is positing 0 beds. No aggression. ??? [facility] is posting 0 beds. ??? [facility] is posting 0 beds. Low acuity only. ??? [place] [facility] is posting 0 beds. ??? [facility] is posting 0 beds. Low acuity. ??? [facility] is posting 0 beds. 72 hr hold required. ??? [facility] is posting 0 beds. ??? [facility] is posting 0 beds. Vol only, No Hx of aggression, violence or assault. No sexual offenders. No 72 hr holds. ??? [facility] is posting 4 beds. -Low Acuity (Must have the cognitive ability todo programming. No aggressive or violent behavior or recent HX in the last 2 yrs. must be primary.) ??? [facility] is posting 0 beds. Low acuity only. Violence and aggression capped. ??? [facility] 0 beds. Low acuity, Neg Covid. ??? [facility] is posting 0 beds. Covid neg. Vol only. Combined adolescent and adult unit. No aggressive or violent behavior. No registered sex offenders. ??? [facility] is posting 4 beds. Call for details.- Low Acuity ??? [facility] is posting 2 beds. -Low Acuity 3pm No appropriate bed available at this time. Telephone Encounter - Tristan Esparza - 09/22/2021 7:18 AM CDT [facility] Access Inpatient Bed Call Log 09/22/2021 done at 7am ?? Adults: 72HH ?? [facility] is posting 0 beds. ?? [facility] is posting 0 beds. ?? [facility] is posting 0 beds. ?? [facility] is posting 0 beds. ?? [facility] is posting 0 beds. ?? [facility] is posting 0 beds. ?? [facility] is posting 0 beds. ?? [facility] is posting 0 beds. ? [facility] is posting 1 beds. Mixed unit 12+. Low acuity only. ?? [facility] is positing 0 beds. No aggression. ?? [facility] is posting 0 beds. ?? [facility] is posting 0 beds. Low acuity only. ?? [place] [facility] is posting 0 beds. ?? [facility] is posting 0 beds. Low acuity. ?? [facility] is posting 0 beds. 72 hr hold required. ?? [facility] is posting 0 beds. ? [facility] is posting 0 beds. Vol only, No Hx of aggression, violence or assault. No sexual offenders. No 72 hr holds. ?? [facility] is posting 4 beds. (Must have the cognitive ability to do programming. No aggressive or violent behavior or recent HX in the last 2 yrs. MH must be primary.) ?? [facility] is posting 0 beds. Low acuity only. Violence and aggression capped. ?? [facility] is [facility] 0 beds. Low acuity, Neg Covid. ?? [facility] is posting 0 beds. Covid neg. Vol only. Combined adolescent and adult unit. No aggressive or violent behavior. No registered sex offenders. ?? [facility] is posting 6 beds. Call for details. ?? [facility] is posting 2 beds. ?? 7:10am No appropriate bed available. Telephone Encounter - Jaimee Oakley - 09/22/2021 12:29 AM CDT 0030 Bed Search Update: [facility]-No beds available [facility]-No beds available [place]-No beds available [facility]-No beds available [facility]-No beds available [facility]-No beds available [facility]-No beds available Remains on wait list. documented in this encounter Plan of Treatment Upcoming Encounters Date Type Specialty Care Team Description 12/20/2021 Appointment Behavioral Health Sarai Weaver MD [address] [place], [place] [address] (Wo rk) documented as of this encounter Visit Diagnoses Not on filedocumented in this encounter Care Teams Supervisor Concrete Block Plant Relationship Specialty Start Date End Date [facility] PCP - General 09/21/21 [address] [place] [address] Sada [facility] 09/21/21 [address] [place] [address] [address] documented as of this encounter
--- OUTSIDE RECORDS SUMMARY | 2021-12-18 12:15 | XMS_ITS | Encounter Summary ---
:1980 Author Organization [place] Address [address] [facility] [facility] [place] [address] Care Team Providers Name Role Phone [facility] Primary Care Provider [phone] Sada Cagle Unavailable [phone] Reason for Visit Auth/Cert Specialty Diagnoses / Procedures Referred By Contact Refer red To Contact Behavioral Health Ur Adult Mh Pa rtial [facility] orth Blding [address], [address] [place] [address] Phone: Fax: Referral ID Status Reason Start Date Expiration Date Visits Requ ested Visits Authorized [id number] 1 1 Encounter Details Date Type Department Care Team Description 10/03/2021 Hospital Encounter [facility] Demarco Weaver [facility] Mental Health & MD Omar episode of major Addiction Services [address] depressive disorder [facility] without prior episode Blsascha RAMOS, (H) (Primary Dx) [address] [place] [address] [address] [place], [place] (Work) [address] Social History Tobacco Use [...] Augustus Ramirez Jr. : 1980 ACCT. NUMBER: [id number] DATE OF SERVICE: 10/03/21 START TIME: 9:00 AM END TIME: 9:50 AM NUMERICAL CONTROL NESTING OPERATOR: Roby Tejada LMFT TOPIC: Process Group Diagnoses: 296.32 (F33.1) Major Depressive Disorder, Recurrent Episode, Moderate, With anxious distress Attention-Deficit/Hyperactivity Disorder 314.01 (F90.2) Combined presentation Provisional Diagnoses: 1. Alcohol Use Disorder 303.90 (F10.20) Moderate 2. 305.20 (F12.10) Cannabis Use Disorder Mild [facility] Adult Partial Hospitalization Program TRACK: [facility] NUMBER OF PARTICIPANTS: 6 Service Modality: Video [...] goals identified in their treatment plan. DENNIS Peterosn October 03, 2021 Group Note - Estefania Ellis OTR/L - 10/03/2021 3:19 PM CDT Psychoeducation Group Note PATIENT'S NAME: Augustus Ramirez Jr. : 1980 ACCT. NUMBER: [id number] DATE OF SERVICE: 10/03/21 START TIME: 2:00 PM END TIME: 2:50 PM NUMERICAL CONTROL NESTING OPERATOR: Estefania Ellis OTR/L TOPIC: [facility] OT Group: Partial Hospitalization Program- Occupational Therapy [facility] Adult Partial Hospitalization Program TRACK: 1 NUMBER OF PARTICIPANTS: 5 Service Modality: Video Visit Telemedicine Visit: The patient's condition can be safely assessed and treated via synchronous audioand visual telemedicine encounter. Reason for Telemedicine Visit: Services only offered telehealth Originating Site (Patient Location): Patient's home Distant Site (Provider Location): [facility]: The patient/guardian has verbally consented [...] Augustus Ramirez Jr. : 1980 ACCT. NUMBER: [id number] DATE OF SERVICE: 10/03/21 START TIME: 1:00 PM END TIME: 1:50 PM NUMERICAL CONTROL NESTING OPERATOR: Gaby Eden LICSW TOPIC: EBP Group: Enhanced Mindfulness [facility] Adult Partial Hospitalization Program TRACK: 1 [...] Augustus Ramirez Jr. : 1980 ACCT. NUMBER: [id number] DATE OF SERVICE: 10/03/21 START TIME: 10:00 AM END TIME: 10:50 AM NUMERICAL CONTROL NESTING OPERATOR: Belkis Leonard RN TOPIC: Wellness Group: Brain Hazel Mail [facility] Adult Partial Hospitalization Program TRACK: [facility] 1 NUMBER OF PARTICIPANTS: 6 Summary of Group / Topics Discussed: Brain Health: Pathophysiology of stress and anxiety: Patients were educated on the difference between stress, chronic stress, and anxiety. The anatomy and pathophysiology of the body/brain were reviewed to illustrate the immediate effects of stress/anxiety in the body and the long chain quiller tender effects and increased risks for chronic disease that come from unmanaged stress/anxiety. Self-coping strategies to manage symptoms of stress were reviewed and pharmacologic, psychotherapeutic, and complementary treatment options were discussed. Patient Session Goals / Objectives: ? Described the differences between stress and anxiety and how the body responds to it ? Listed the long chain quiller tender effects and increased risks for chronic disease [...] Augustus Ramirez Jr. : 1980 ACCT. NUMBER: [id number] DATE OF SERVICE: 10/03/21 START TIME: 11:00 AM END TIME: 11:50 AM NUMERICAL CONTROL NESTING OPERATOR: Kathleen Grajeda LMFT TOPIC: Wellness Group: Mental Health Maintenance [facility] Adult Partial Hospitalization Program TRACK: 1 [...] Health Sarai Weaver MD [address] [place], [place] [address] (Wo rk) documented as of this encounter Visit Diagnoses Diagnosis Current moderate episode of major depres sive disorder without prior episode (H) - Primary documented in this encounter Additional Health Concerns Assessment Noted Time PHQ-9 Depression Total Score: 14 09/30/2021 8:52 AM CD T documented as of this encounter Care Teams Public Service Representative Relationship Specialty Start Date End Date [facility] Medical PCP - General 09/21/21 [address] [place] [address] [facility] 09/21/21 [address] [place] [place] [address] documented as of this encounter
--- OUTSIDE RECORDS SUMMARY | 2021-12-18 12:15 | XMS_ITS | Encounter Summary ---
:1980 Author Organization [place] Address [address] [place] [address] Care Team Providers Name Role Phone [facility] Primary Care Provider [phone] Sada Cagle Unavailable [phone] Reason for Visit Auth/Cert Specialty Diagnoses / Procedures Referred By Contact Refer red To Contact Behavioral Health Ur Adult Mh Pa rtial [facility] orth Blding [address], [address] [place] [address] Phone: Fax: Referral ID Status Reason Start Date Expiration Date Visits Requ ested Visits Authorized [id number] 1 1 Encounter Details Date Type Department Care Team Description 10/07/2021 Hospital Encounter [facility] Dem[facility]co [facility] Mental Health & MD Omar episode of major Addiction Services [address] depressive disorder [facility] without prior episode Blsascha RAMOS, (H) (Primary Dx) [address] [place] [address] [address] [place], [place] (Work) [address] Social History Tobacco Use [...] electronic health record. Name: Signature: Augustus Ramirez JrRicahrd Unable to sign due to Covid 19. Verbal permission given on 10/07/2021 1315 Omar Weaver MD Psychiatrist/Frame Aligner Omar Weaver MD on 10/07/2021 at 4:27 PM Estefania Ellis OTR/L Occupational Therapist Estefania Ellis OTR/Yanna on 10/07/2021 at 3:19 PM Roby Tejada MA, LMFT Psychotherapist DENNIS Peterson on 10/07/2021 at 3:32 PM documented in this encounter Miscellaneous Notes Group Note - Roby Tejada LMFT - 10/07/2021 4:04 PM CDT Process Group Note PATIENT'S NAME: Augustus Ramirez Jr. : 1980 ACCT. NUMBER: [id number] DATE OF SERVICE: 10/07/21 START TIME: 9:00 AM END TIME: 9:50 AM MANUFACTURING INSPECTOR: Roby Tejada LMFT TOPIC: Process Group Diagnoses: 296.32 (F33.1) Major Depressive Disorder, Recurrent Episode, Moderate, With anxious distress Attention-Deficit/Hyperactivity Disorder 314.01 (F90.2) Combined presentation Provisional Diagnoses: 1. Alcohol Use Disorder 303.90 (F10.20) Moderate 2. 305.20 (F12.10) Cannabis Use Disorder Mild [facility] Adult Partial Hospitalization Program TRACK: [facility] NUMBER OF PARTICIPANTS: 5 Service Modality: Video [...] PATIENT'S NAME: [facility] Jr. : 1980 [facility]: [id number] DATE OF SERVICE: 10/07/21 START TIME: 10:00 AM END TIME: 10:50 AM MANUFACTURING INSPECTOR: Roby Tejada LMFT TOPIC: EBP Group: Cognitive Restructuring [facility] Adult Partial Hospitalization Program TRACK: [facility] NUMBER OF PARTICIPANTS: 5 Summary of [...] Augustus Ramirez Jr. : 1980 ACCT. NUMBER: [id number] DATE OF SERVICE: 10/07/21 START TIME: 2:00 PM END TIME: 2:50 PM MANUFACTURING INSPECTOR: Belkis Leonard RN TOPIC: Wellness Group: Mental Health Maintenance [facility] Adult Partial Hospitalization Program TRACK: [...] PATIENT'S NAME: Augustus Ramirez Jr. : 1980 [facility] NUM[facility]: [id number] DATE OF SERVICE: 10/07/21 START TIME: 1:00 PM END TIME: 1:50 PM MANUFACTURING INSPECTOR: Adelaide Morris OTR/Yanna TOPIC: [facility] OT Group: Self- Regulation Skills [facility] Adult Partial Hospitalization Program TRACK: [facility] NUMBER OF PARTICIPANTS: 5 Service Modality: Video [...] Center treatment plan for more information. MADI Liriano Group Note - Kathleen Grajeda LMFT - 10/07/2021 11:12 AM CDT Psychotherapy Group Note PATIENT'S NAME: Augustus Ramirez Jr. : 1980 ACCT. NUMBER: [id number] DATE OF SERVICE: 10/07/21 START TIME: 11:00 AM END TIME: 11:50 AM MANUFACTURING INSPECTOR: Kathleen Grajeda LMFT TOPIC: EBP Group: Emotions Management [facility] Adult Partial Hospitalization Program TRACK: [...] Care Team Description 12/20/2021 Appointment [facility] [place] MD alexei [address], [place] [address] (Wo rk) documented as of this encounter Visit Diagnoses Diagnosis Current moderate episode of major depres sive disorder without prior episode (H) - Primary documented in this encounter Additional Health Concerns Assessment Noted Time PHQ-9 Depression Total Score: 14 09/30/2021 8:52 AM CD T documented as of this encounter Care Teams Paper Cup Machine Tender Relationship Specialty Start Date End Date [facility] Medical PCP - General 09/21/21 [address] [place] [address] [facility] 09/21/21 [address] [place] [address] documented as of this encounter
--- OUTSIDE RECORDS SUMMARY | 2021-12-18 12:15 | XMS_ITS | Encounter Summary ---
:1980 Author Organization [place] Address [address] [place] [address] Care Team Providers Name Role Phone [facility] Primary Care Provider [phone] Sada Cagle Unavailable [phone] Reason for Referral Mental Health Outpatient (Routine: Next available opening) - Pending Review Specialty Diagnoses / Procedures Referred By Contact Refer red To Contact Behavioral Health Diagnoses MDD (major depressive disorder) Omar Weaver MD [address] [place] [address] [place], [place] [address] Referral ID Status Reason Start Date Expiration Date Visits V isits Requested Authorized [id number] Pending 10/01/2021 10/01/2022 1 1 Review Encounter Details Date Type Department Care Team Description 09/30/2021 BEH Treatment Plan [facility] Omar Weaver MD [address] [facility] [place], [place] [address] MDD (major Mental Health & Sophie Santiago, CONSTRUCTION TRENCH DIGGER [place] [address] [place] [address] depressive Addiction Services disorder) (Primary [address]) [address] [place] [phone] Social History Tobacco Use Types Packs/Day Years [...] Health Sarai Weaver MD [address] [place], [place] [address] (Wo rk) Scheduled Referrals Name Type Priority Associated Diagnoses Order S [facility] Adult Mental Health Referral Routine: Next MDD (major Expecte d: Land Surveyor Manager Referral available opening depressive disord er) 10/01/2021 (Approximate), Expires: 10/01/2022 documented as of this encounter Visit Diagnoses Diagnosis MDD (major depressive disorder) - Primar y Major depressive disorder, single episod e, unspecified documented in this encounter Additional Health Concerns Assessment Noted Time PHQ-9 Depression Total Score: 14 09/30/2021 8:52 AM CD T documented as of this encounter Care Teams Water Plumber Relationship Specialty Start Date End Date [facility] Medical PCP - General 09/21/21 [address] [place], [place] [id number] [facility] 09/21/21 [address] [place] [address] documented as of this encounter
--- OUTSIDE RECORDS SUMMARY | 2021-12-18 12:15 | XMS_ITS | Encounter Summary ---
:1980 Author Organization [place] Address [facility] [place] [address] Care Team Providers Name Role Phone [facility] Primary Care Provider [phone] Sada Cagle Unavailable [phone] Encounter Details Date Type Department Care Team Description 10/02/[address] [facility] Doc Leonard RN & Addiction Services [place] [address], [address] [place], [place] [phone] Social History Tobacco Use [...] 12/20/2021 Appointment Behavioral Health Sarai Weaver MD [address] [place] [address] (Wo rk) documented as of this encounter Visit Diagnoses Not on filedocumented in this encounter Additional Health Concerns Assessment Noted Time PHQ-9 Depression Total Score: 14 09/30/2021 8:52 AM CD T documented as of this encounter Care Teams Integrity Specialist Relationship Specialty Start Date End Date [facility] PCP - General 09/21/21 [address] [place], [place] [phone] [facility] 09/21/21 [address] [place] [address] documented as of this encounter
--- OUTSIDE RECORDS SUMMARY | 2021-12-18 12:15 | XMS_ITS | Encounter Summary ---
:1980 Author Organization [place] Address [address] [place] [address] Care Team Providers Name Role Phone None Primary Care Provider Unavailable Encounter Details Date Type Department Care Team Description 01/23/2003 Clinic Notes Mary Ann Transcriptio Perico Martinez, (Freezer Machine Operator) [address] [facility] [place] [address] [address] [place] [address] [place] [address] (Wo rk) Social History Tobacco Use Types Packs/Day Years Used Date Smoking Tobacco: Never Assessed Sex Assigned at Date Recorded Not on file documented as of this encounter Progress Notes Perico Doan - 01/23/2003 12:00 AM MAKING MACHINE OPERATOR Wt: 150 pounds Ht: 73 inches B/P: 116/68 T: 98.6 P: 78 R : 18 Medications: None. Allergies: None. Tobacco Use/Exposure: None. Preventative Services: S: This 22-year-old male has been ill since 01/20/2003. He has had a sore throat, some cough productive of some phlegm, some rhinorrhea, congestion, and some sneezing. He also has had a headache. He has been afebrile. PAST MEDICAL HISTORY: Unremarkable for asthma or any lung problems. He has felt a little short of breath with this recent episode. O: He appeared alert, in no acute distress. Ears and TMs were normal. Throat: Unremarkable. Neck: No adenopathy. Lungs were clear. Heart rate was about 96 per minute when I listened. A: Viral syndrome. P: I have recommended symptomatic measures. Discussed use of cough medication. Recheck with increased shortness of breath or development of fever. He also had some questions about his weight. He said he is unable to really gain much weight. 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 He frequently skips breakfast. He eats some snacks, fast food, and lunch. He says he eats a fairly good dinner. His weight is below ideal for height. We discussed ways of increasing caloric intake, particularly eating breakfast, eating adequate snacks, and increasing caloric intake. Perico Doan MD/joel Document #: [id number] NG MACHINE OPERATOR documented in this encounter Plan of Treatment Upcoming Encounters Date Type Specialty Care Team Description 12/20/2021 Appointment Behavioral Health Sarai Weaver MD [address] [place] [address] (Wo rk) documented as of this encounter Visit Diagnoses Not on filedocumented in this encounter Care Teams [employer] Combat Skills Relationship Specialty Start Date End Date None PCP - General 12/28/99 01/15/13 documented as of this encounter
--- OUTSIDE RECORDS SUMMARY | 2021-12-18 12:15 | XMS_ITS | Encounter Summary ---
:1980 Author Organization [place] Address [address] [place] [address] Care Team Providers Name Role Phone None Primary Care Provider Unavailable Encounter Details Date Type Department Care Team Description 02/04/1999 Imported Provider Augustus Peña, [facility] [address] [place] [address] Social History Tobacco Use Types Packs/Day Years Used Date Smoking Tobacco: Never Assessed Sex Assigned at Date Recorded Not on file documented as of this encounter Progress Notes Augustus Alberto - 02/04/1999 12:00 AM DIAMOND BLENDER SINUSITIS AND BRONCHITIS. He has been sick [...] return for further assessment. Augustus Alberto M.D./cap OND BLENDER Augustus Alberto - 02/04/1999 12:00 AM DIAMOND BLENDER Sed rate and CBC were normal. Augustus Alberto M.D./cap OND BLENDER documented in this encounter Plan of Treatment Upcoming Encounters Date Type Specialty Care Team Description 12/20/2021 Appointment Behavioral Health Sarai Weaver MD [address] [place] [address] (Wo rk) documented as of this encounter Visit Diagnoses Not on filedocumented in this encounter Care Teams Taxi Truck Driver Relationship Specialty Start Date End Date None PCP - General 12/28/99 01/15/13 documented as of this encounter
--- OUTSIDE RECORDS SUMMARY | 2021-12-18 12:15 | XMS_ITS | Encounter Summary ---
:1980 Author Organization [place] Address [address] [facility] [place] [address] Care Team Providers Name Role Phone [facility] Primary Care Provider [phone] Sada Cagle Unavailable [phone] Reason for Visit Auth/Cert Specialty Diagnoses / Procedures Referred By Contact Refer red To Contact Behavioral Health Ur Adult Mh Pa rtial [facility] orth Blding [address], [address] [place] [address] Phone: Fax: Referral ID Status Reason Start Date Expiration Date Visits Requ ested Visits Authorized [id number] 1 1 Encounter Details Date Type Department Care Team Description 10/04/2021 Hospital Encounter [facility] Demarco Weaver [facility] Mental Health & MD Omar episode of major Addiction Services [address] depressive disorder [facility] without prior episode Blsascha RAMOS, (H) (Primary Dx) [address] [place] [address] [address] [place], [place] (Work) [address] Social History Tobacco Use [...] Augustus Ramirez Jr. : 1980 ACCT. NUMBER: [id number] DATE OF SERVICE: 10/04/21 START TIME: 11:00 AM END TIME: 11:50 AM LICENSE EXAMINER: Roby Tejada LMFT TOPIC: EBP Group: Specialty Awareness [facility] Adult Partial Hospitalization Program TRACK: [facility] NUMBER OF PARTICIPANTS: 5 Summary of [...] Augustus Ramirez Jr. : 1980 ACCT. NUMBER: [id number] DATE OF SERVICE: 10/04/21 START TIME: 2:00 PM END TIME: 2:50 PM LICENSE EXAMINER: Jeane Kendrick RN TOPIC: Wellness Group: Medication [...] Augustus Ramirez Jr. : 1980 ACCT. NUMBER: [id number] DATE OF SERVICE: 10/04/21 START TIME: 10:00 AM END TIME: 10:50 AM LICENSE EXAMINER: Roby Tejada LMFT TOPIC: EBP Group: Emotions Management [facility] Adult Partial Hospitalization Program TRACK: [facility] NUMBER OF PARTICIPANTS: 6 Summary of [...] Augustus Ramirez Jr. : 1980 ACCT. NUMBER: [id number] DATE OF SERVICE: 10/04/21 START TIME: 1:00 PM END TIME: 1:50 PM LICENSE EXAMINER: Adelaide Morris OTR/L TOPIC: [facility] OT Group: Lifestyle Balance and Structure [facility] Adult Partial Hospitalization Program TRACK: [facility] NUMBER OF PARTICIPANTS: 5 Service Modality: Video [...] current master individualized treatment plan. See [facility] treatment plan for more information. OLY Liriano/Yanna Group Note - Kathleen Grajeda LMFT - 10/04/2021 9:11 AM CDT Process Group Note PATIENT'S NAME: Augustus Ramirez Jr. : 1980 ACCT. NUMBER: [id number] DATE OF SERVICE: 10/04/21 START TIME: 9:00 AM END TIME: 9:50 AM LICENSE EXAMINER: Kathleen Grajeda LMFT TOPIC: Process Group Diagnoses: [...] Health Sarai Weaver MD [address] [place] [address] (Wo rk) documented as of this encounter Visit Diagnoses Diagnosis Current moderate episode of major depres sive disorder without prior episode (H) - Primary documented in this encounter Additional Health Concerns Assessment Noted Time PHQ-9 Depression Total Score: 14 09/30/2021 8:52 AM CD T documented as of this encounter Care Teams Assistant Technician Relationship Specialty Start Date End Date [facility] Medical PCP - General 09/21/21 [address] [place] [address] [facility] 09/21/21 [address] [place] [place] [address] documented as of this encounter
--- OUTSIDE RECORDS SUMMARY | 2021-12-18 12:15 | XMS_ITS | Encounter Summary ---
:1980 Author Organization [place] Address [address] [facility] [place] [address] Care Team Providers Name Role Phone [facility] Primary Care Provider [phone] Sada Cagle Unavailable [phone] Reason for Visit Auth/Cert Specialty Diagnoses / Procedures Referred By Contact Refer red To Contact Behavioral Health Ur Adult Mh Pa rtial [facility] orth Blding [address], [address] [place] [address] Phone: Fax: Referral ID Status Reason Start Date Expiration Date Visits Requ ested Visits Authorized [id number] 1 1 Encounter Details Date Type Department Care Team Description 10/08/2021 Hospital Encounter [facility] Demarco Weaver [facility] Mental Health & MD Omar episode of major Addiction Services [address] depressive disorder [facility] without prior episode Blsascha RAMOS, (H) (Primary Dx) [address] [place] [address] [address] [place], [place] (Work) [address] Social History Tobacco Use [...] Augustus Ramirez Jr. : 1980 ACCT. 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 [facility] Adult Partial Hospitalization Program TRACK: [...] Care Team Description 12/20/2021 Appointment [facility]al [facility] MD alexei [address], [place] [address] (Wo rk) documented as of this encounter Visit Diagnoses Diagnosis Current moderate episode of major depres sive disorder without prior episode (H) - Primary documented in this encounter Additional Health Concerns Assessment Noted Time PHQ-9 Depression Total Score: 14 09/30/2021 8:52 AM CD T documented as of this encounter Care Teams Round Up Ring Hand Relationship Specialty Start Date End Date [facility] Medical PCP - General 09/21/21 [address] [place] [address] [facility] 09/21/21 [address] [place] [address] documented as of this encounter
--- OUTSIDE RECORDS SUMMARY | 2021-12-18 12:15 | XMS_ITS | Encounter Summary ---
:1980 Author Organization [place] Address [address] [place] [address] Care Team Providers Name Role Phone [facility] Primary Care Provider [phone] Sada Cagle Unavailable [phone] Encounter Details Date Type Department Care Team Description 09/30/2021 Telephone [facility] Generic, Behavioral Behavioral Health In [facility] MD Elin [address] [place] [phone] Social History Tobacco Use Types Packs/Day [...] this encounter Miscellaneous Notes Telephone Encounter - Gayle Garciaica - 10/16/2021 12:31 PM CDT ----- Message [...] 2657 Additional notes: Pt is discharging from [facility] end of day 10/16/21. Please remove from [facility]. Starting 6A n 10/18/21, admit is completed. See transfer SBAR for additional information. Telephone Encounter - Jeane Garcia - 10/10/2021 7:45 AM CDT ----- Message from DENNIS Garcia sent at 10/10/2021 7:38 AM CDT ----- Regarding: please add [facility] appointments Scheduling Request Patient Name: Augustus Goyaljusten Zuleta Location of programming: virtual Start Date: September [...] on Thu Scheduling Request Patient Name: Augustus Goyaljusten Zuleta Location of programming: Virtual Start Date: 10/02 Group:[facility] Program Track One??[id number]??9AM - 3PM??M-F?? Attending Provider (): Dr Omar Weaver. Number of visits to be scheduled: 50 Duration of Appointment in minutes: 360 Visit Type: Zoom - 2657 Additional notes: documented in this encounter Plan of Treatment Upcoming Encounters Date Type Specialty Care Team Description 12/20/2021 Appointment Behavioral Health Sarai Weaver MD [address] [place], [place] [address] (Wo rk) documented as of this encounter Visit Diagnoses Not on filedocumented in this encounter Additional Health Concerns Assessment Noted Time PHQ-9 Depression Total Score: 14 09/30/2021 8:52 AM CD T documented as of this encounter Care Teams Pull Out Operator Relationship Specialty Start Date End Date [facility] Medical PCP - General 09/21/21 [address] [place] [address] Sada [facility] 09/21/21 [address] [place] [place] [address] documented as of this encounter
--- OUTSIDE RECORDS SUMMARY | 2021-12-18 12:15 | XMS_ITS | Encounter Summary ---
:1980 Author Organization [place] Address [facility] [place] [address] Care Team Providers Name Role Phone None Primary Care Provider Unavailable Encounter Details Date Type Department Care Team Description 02/26/2000 Abstract [facility] Iron Mariano MD [id number] [place] [address] [phone] (Wo rk) Social History Tobacco Use Types Packs/Day Years Used Date Smoking Tobacco: Never Assessed Sex Assigned at Date Recorded Not on file documented as of this encounter Plan of Treatment Upcoming Encounters Date Type Specialty Care Team Description 12/20/2021 Appointment Behavioral Health Sarai Weaver MD [address] [place], [place] [address] (Wo rk) documented as of this encounter Visit Diagnoses Not on filedocumented in this encounter Care Teams Pre Kindergarten Teacher Relationship Specialty Start Date End Date None PCP - General 12/28/99 01/15/13 documented as of this encounter
--- OUTSIDE RECORDS SUMMARY | 2021-12-18 12:15 | XMS_ITS | Encounter Summary ---
:1980 Author Organization [place] Address [address] [place] [address] Care Team Providers Name Role Phone [facility] Primary Care Provider [phone] Sada Cagle Unavailable [phone] Reason for Visit Reason Comments Suicidal Encounter Details Date Type Department Care Team Description 09/21/2021 - [facility] Darien Vargas MD [facility] [address] [place], [place] [phone] Suicidal ideation 09/[facility] [address] [place] [address] Dept Parvez, Devon العلي MD [facility] [address] [place] [address] [address] MD [facility] [address] [facility] [address] [place] [address] [place], [place] Hong Frost MD [facility] [address] [place], [place] [phone] Join Doe MD [facility] [address] [place] [address] [phone] Omar Martin MD [facility] [address] [place] [address] Social History Tobacco Use Types Packs/Day Years [...] documented in this encounter Discharge Instructions Discharge InstructionsDonavan España - 09/23/2021 11:28 AM CDT Aftercare Plan [...] for help: , In Laws, [facility] team you can call 22/09: [facility] Crisis [phone] Other things that are important when I???m in crisis: My family is the most important thing to me. Additional resources and information: Crisis Lines Crisis Text Line Text 389523 You will be connected with a trained live crisis counselor to provide support. National Hope Line 1.800.SUICIDE [2491714] Community Resources Fast Tracker Linking people to mental health and substance use disorder resources Labcyte.org [place] [facility] Warm Line Peer to peer support Thursday thru Thursday, 12 pm to 10 pm 539.228.7781 [place] [address] National Eastpoint on Mental Illness (NOEMÍ) 847.683.8749 or 1.888.NOEMÍ.HELPS Mental Health Apps My3 https://Easel Learn.org/ VirtualHopeBox https://Little Eye Labsorg/apps/ubxgzkw-wzuq-ytc/ [facility] SCHEDULING: Today you were seen by a licensed mental health professional through [facility] ([facility]) for a crisis assessment in the Emergency Department at [facility]. It is recommended that you follow up with your estabished providers (psychiatrist, mental health therapist, and/or primary care doctor - as relevant) as soon as possible. Coordinators from [facility] will be calling you in the next 24-48 hours to ensure that you have the resources you need. You canalso contact [facility] coordinators directly at [phone]. You have been scheduled the following appointments: 09/30/21 8:00 AM Maryellen Burt (Outpatient Intake) Additionally, a referral has been made with the [facility], who will follow up with you by e-mail or phone. [facility] [phone] [facility] maintains an extensive network of licensed behavioral [...] Donavan España - 09/23/2021 11:03 AM CDT [facility] Crisis Reassessment Augustus Ramirez was reassessed at the request of Vandana Branch [facility] for the following reasons: patientstabilizing in the [...] engage in safety planning. In meeting with typewriters functional tester he is able to demonstrate future focused [...] in minutes: .75 hrs CPT code(s) utilized: 79412 - Psychotherapy (with patient) - 45 (38-52*) [...] for help: , In Laws, Friends [facility] team you can call 22/09: [facility] Crisis [phone] Other things that are important when I???m in crisis: My family is the most important thing to me. Additional resources and information: Crisis Lines Crisis Text Line Text 845794 You will be connected with a trained live crisis counselor to provide support. National Hope Line 1.800.SUICIDE [2047296] Community Resources Fast Tracker Linking people to mental health and substance use disorder resources Rapid Action PackagingtrackSocialComparen.org [place] [facility] Warm Line Peer to peer support Thursday thru Thursday, 12 pm to 10 pm 624.994.5665 [place] [address] National Eastpoint on Mental Illness (NOEMÍ) 196.918.4539 or 1.888.NOEMÍ.HELPS Mental Health Apps My3 https://my3app.org/ VirtualHopeBox https://Delta Systems.org/apps/sdpnlmh-kfmk-bvc/ [facility] SCHEDULING: Today you were seen by a licensed mental health professional through [facility] ([facility]) for a crisis assessment in the Emergency Department at [facility]. It is recommended that you follow up with your estabished providers (psychiatrist, mental health therapist, and/or primary care doctor - as relevant) as soon as possible. Coordinators from [facility] will be calling you in the next 24-48 hours to ensure that you have the resources you need. You canalso contact [facility] coordinators directly at [phone]. You have been scheduled the following appointments: 09/30/21 8:00 AM Maryellen Burt (Outpatient Intake) Additionally, a referral has been made with the [facility], who will follow up with you by e-mail or phone. [facility] [phone] [facility] maintains an extensive network of licensed behavioral [...] reviewed and clinical supervision by FERNANDO Dunn, [employer], October 03, 2021 Kizzy Garcia LICSW - 09/21/2021 9:53 PM CDT [employer] contacted central intake @ [phone] regarding bed status. Staff disclosed that patientwants to stay in the [facility] area and that there are about 10-15 people before him. documented in this encounter Consult Notes Nesha Mcduffie - 09/21/2021 2:30 PM CDT Diagnostic Evaluation Consultation Crisis Assessment Patient was assessed: remote Patient location: [facility] ED Was a release of information [...] Assessment Methods Patient is his own guardian. [employer] met with patient and explained the crisis [...] to ED for evaluation. Pt went to [employer] yesterday and closed the door with vehicle [...] committed suicide. 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 Mother with hx of paranoid schizophrenia. Significant [...] Perceived helpfulness: unknown. Psychiatrist: No Therapist: No Laminating Machine Operator: No CTSS or ARMHS: No ACT Team: [...] is willing to travel outside of the [facility] for placement? Yes Behavioral Intake [...] in minutes: 1.75 hrs CPT code(s) utilized: 98592 - Psychotherapy for Crisis - 60 (30-74*) min FERNANDO Krause, [facility] DEC - Triage & Transition Services documented [...] MD Parvez Reynolds Jerome Richard, MD 09/23/21 0596 Bianca Ghosh RN - 09/22/2021 6:30 PM CDT Pt returned from walk. Bianca Ghosh RN - 09/22/2021 6:14 PM CDT [facility] with ERT & security. Provider and charge [...] of Service: Ed Patient was seen virtually ([employer] or other teleconferencing device). Presenting problem: Augustus is followed related to 72 Hour Hold: pt reports frustration with wait for therapy, inpt programming. ED wait is increasing symptoms, anxiety. Please see initial [facility] Crisis Assessment completed by Nesha Mcduffie on [...] this episode of care: 1-4 CPT utilized: 94107 - Psychotherapy (with patient) - 45 (38-52*) [...] ADWOA Yañez Licensed Mental Health Professional (LMHP), [facility] [phone] Bianca Ghosh RN - 09/22/2021 10:16 AM CDT Augustus speaking with Vandana CONTRERAS cord cutter. Bianca Ghosh RN - 09/22/2021 9:09 AM CDT Pt security watch, 1:1 sitter discontinued. Bianca Ghosh RN - 09/22/2021 9:07 AM CDT Notified ALARM SECURITY OR SURVEILLANCE MONITOR that pt would like to speak with [...] History Chief Complaint: Suicidal HPI Augustus Ramirez is a 41 year old male who [...] 1220 yes yes yes -- RAT C-SSRS ([place]) Date and Time Q1 Wished to be [...] Suicide assessment completed by mental health (D.E.C., WINCH TRUCK OPERATOR, etc.) Reviewed: I reviewed nursing notes and vitals Assessments: 1223 I obtained history and examined the patient as noted above. I rechecked and updated the patient regarding the laboratory results and the plan for care. Consults: 8157 I spoke with BEN regarding the patient. [...] garage yesterday. Medically clear and evaluated by BEN. Unable to contract for safety. Awaiting inpatient [...] out a primary concern was his difficulty christ for safety. At sign out I was told that if that changes then repeat assessment by mental health would be appropriate. My discussion with the patient is consistent with initial provider's impressions. Repeat [facility] assessment requested. At 9:13pm I spoke with Kizzy from [facility]. Multiple high risk factors and needs admission. [...] hold signed. Kathleen Hand MD 09/22/21 0236 [facility] - 09/21/2021 12:14 PM CDT [facility] ED Mental Health Handoff Note: Brief HPI: [...] Status --------- ------ Drug abuse screen 1 urin...[[id number]] Abnormal Final result Please view results for [...] MD Margot Du Edgar Ronald, MD 09/22/21 0282 documented in this encounter Miscellaneous Notes Safe - Kizzy Garcia ADWOA - 09/21/2021 9:51 PM CDT Augustus Ramirez [...] visitor precautions: No Updated care team: Yes: Molder Vac[employer] updated Dr. Hand For additional details see full LMHP assessment. ADWOA Ramírez Pharmacy-Admission Medication History - Darlyn Bhakta [facility] - 09/21/2021 6:48 PM CDT Admission medication history interview status for this patient is complete. See [facility] admission navigator for allergy information, prior to admission medications and immunization status. Medication history interview done, indicate source(s): Patient Medication history resources (including written lists, pill bottles, clinic record):None Pharmacy: [facility] Changes made to JAVASCRIPT WEB DEVELOPER medication list: Added: Adderall, cetirizine, vitamin C, vitamin D Changed: None Reported as Not Taking: None Removed: None Actions taken by pharmacist (provider contacted, etc):None Additional medication history information:None Medication reconciliation/reorder completed by provider prior to medication history? N (Y/N) Prior to Admission medications Medication Sig Last Dose Taking? Auth Provider Antisubmarine Weapons Officer End Date amphetamine-dextroamphetamine (ADDERALL) 20 MG tablet Take 20 mg by mouth 3 times daily 09/21/2021 [id number] Yes Unknown, Entered By History Ascorbic Acid [...] am Yes Unknown, Entered By History Darlyn Bhakta, PharmD, [facility] Emergency Medicine Clinical Pharmacist [phone] Safe - Nesha Mcduffie - 09/21/2021 2:16 PM CDT Augustus Goyaljusten Doll. September 21, 2021 SAFE Note Critical Safety [...] at 2:20p For additional details see full HP assessment. Nesha Mcduffie documented in this encounter Plan of Treatment Upcoming Encounters Date Type Specialty Care Team Description 12/20/2021 Appointment Behavioral Health Sarai Weaver MD [address] [place] [address] (Wo rk) documented as of this encounter [...] platelets and differential (09/23/2021 10:07 AM CDT) [facility] gist Method Time Signature WBC Count 8.2 4.0 [...] CDT Absolute 0.0 0.0 - 0.2 09/23/2021 LABORATORY Basophils 10e3/uL 10:16 AM CDT Absolute [...] Organization Address City/State/ZIP Code Phon [place] [address] Care Lab [address] Lab (1st floor, no room number) Ethyl Alcohol Level (09/23/2021 10:07 AM CDT) P athologist Signature Alcohol ethyl <0.01 <=0.01 g/dL 09/23/2021 [facility] 10:41 AM CDT Specimen Anatomical Collection Method / Collection Time Recei joaquim Time (Source) Location / Volume Laterality Blood STRUCTURE OF LEFT Venipuncture / 09/23/2021 10:07 0706/2021 UPPER LIMB / Unknown AM CDT 10:11 AM CDT Unknown Omar Martin MD LAB - BLOOD ORD ERABLES Performing Organization Address City/State/ZIP Code [place] [address] Care Lab [address] Lab (1st floor, no room number) (ABNORMAL) Comprehensive metabolic panel (09/23/2021 10:07 AM CDT) Patholo gist Method Time Signature Sodium 136 133 - 144 09/23/2021 [facility] mmol/L 10:41 AM CDT Potassium 4.8 3.4 - 5.3 09/23/2021 [facility] mmol/L 10:41 AM CDT Chloride 105 94 - 109 09/23/2021 [facility] mmol/L 10:41 AM CDT Carbon Dioxide 28 20 - 32 09/23/2021 LABORATORY (CO2) mmol/L 10:41 AM CDT Anion Gap 3 3 - 14 09/23/2021 LABORATORY mmol/L 10:41 AM CDT Urea Nitrogen 18 7 - 30 09/23/2021 [facility] mg/dL 10:41 AM CDT Creatinine 1.07 0.66 - 09/23/2021 [facility] 1.25 mg/dL 10:41 AM CDT Calcium 9.5 8.5 - 10.1 09/23/2021 [facility] mg/dL 10:41 AM CDT Glucose 116 (H) 70 - 99 09/23/2021 [facility] mg/dL 10:41 AM CDT Alkaline 81 [...] AM CDT GFR Estimate 89 >60 09/23/2021 [facility] mL/min/1.7 10:41 AM CDT 3m2 Comment: Effective February 19, 2021 eGF Rcr in adults is calculated using the 2020 CKD-EPI creatinine equation which includ es age and gender (Nitesh et al., NEJ, DOI: 10.1056/ZEPSqy3032464) Specimen Anatomical Collection Method / Collection Time Recei joaquim Time (Source) Location / Volume Laterality Blood STRUCTURE OF LEFT Venipuncture / 09/23/2021 10:07 08/31 UPPER LIMB / Unknown AM CDT 10:11 AM CDT Unknown Omar Martin MD LAB - BLOOD ORD ERABLES Performing Organization Address City/State/ZIP Code [place] [address] Care Lab [address] Lab (1st floor, no room number) (ABNORMAL) Drug abuse screen 1 urine (ED) (09/21/2021 6:20 PM CDT) [facility] Method Time Signature Amphetamines Screen Screen 09/21/2021 LABORATORY Urine Positive Negative 6:54 PM CDT (A) Comment: Cutoff for a positive amphetamine is gre ater than 500 ng/mL. This is an unconfirmed screening result to be used for medical purposes only. Barbiturates Urine Screen Negative Screen Negative 022 6:54 [facility] PM CDT Comment: Cutoff for a negative barbitura te is 200 ng/mL or less. Benzodiazepines Urine Screen Negative Screen 09/21/2021 6 :54 [facility] Negative PM CDT Comment: Cutoff for a negative benzodiaz epine is 200 ng/mL or less. Cannabinoids Urine Screen Positive Screen Negative 022 6:54 LABORATORY (A) PM CDT Comment: Cutoff [...] Urine URINE SPECIMEN Non-blood 09/21/2021 6:20 PM 022 6:29 OBTAINED BY CLEAN Collection / CDT PM CDT CATCH PROCEDURE / Unknown Unknown Darien Vargas MD LAB - URINE ORDERABLES Performing Organization Address City/State/ZIP Code [place] [phone] Care Lab [address] [facility] Lab (1st floor, no room number) Asymptomatic [...] the Xpert Xpress SARS-CoV-2 Assay on the [employer] Systems. A dditional information about this [...] COVID-19. This test was validated by the [facility]. This laboratory is certified under the Clinical Laboratory Improvement Amendments of 1988 (CLIA-88) as qualified to perform high complexity laboratory testing. Darien Vargas MD LAB - MICRO GENERAL ORDERABL ES Performing Organization Address City/State/Z[place] [phone] [facility] [address] [facility], no room number) documented [...] after melatonin administration. melatonin tablet 5 mg 2159 (Given - Provider: Maame moore RN) 2141 (Given - Provider: Justin Boyer RN) 5 mg, Oral, AT BEDTIME PRN, sleep, Starting on 09/21/21 at 21 55 documented in this encounter Care Teams Contract Graphic Designer Relationship Specialty Start Date End Date [facility] PCP - General 09/21/21 [address] [address] Iglesias [place], [place] [phone] Sada [facility] 09/21/21 [address] [place] [address] documented as of this encounter
--- OUTSIDE RECORDS SUMMARY | 2021-12-18 12:15 | XMS_ITS | Encounter Summary ---
:1980 Author Organization [place] Address [address] [place] [address] Care Team Providers Name Role Phone [facility] Primary Care Provider [phone] Sada Cagle Unavailable Reason for Visit Reason Onset Date Comments MH/CD Inpatient 09/22/2021 Encounter Details Date Type Department Care Team Description 09/22/2021 Telephone [facility] Uriel Generic, Behavioral MH/ CD Inpatient Behavioral Health In alex Worthington MD [address] [place] [phone] Social History Tobacco Use Types Packs/Day [...] PM CDT R: 8pm- Bed search update: [facility] is at capacity. [facility] is at capacity. [facility] is at capacity. [facility] is at capacity. [facility] is at capacity. [facility] is at capacity. Pt remains on waitlist pending available bed. documented in this encounter Plan of Treatment Upcoming Encounters Date Type Specialty Care Team Description 12/20/2021 Appointment Behavioral Health Sarai Weaver chael, MD [address] [place] [address] (Wo rk) documented as of this encounter Visit Diagnoses Not on filedocumented in this encounter Care Teams Passenger Car Inspector Relationship Specialty Start Date End Date [facility] PCP - General 09/21/21 [address] [address] [place], [place] [phone] S[facility] 09/21/21 [address] [address] [place] [address] documented as of this encounter
--- OUTSIDE RECORDS SUMMARY | 2021-12-18 12:15 | XMS_ITS | Encounter Summary ---
:1980 Author Organization [place] Address [facility] [place] [address] Care Team Providers Name Role Phone [facility] Primary Care Provider [phone] Sada Cagle Unavailable [phone] Encounter Details Date Type Department Care [...] 12/20/2021 Appointment Behavioral Health Sarai Weaver MD [address] [place], [place] [address] (Wo rk) documented as of this encounter Visit Diagnoses Not on filedocumented in this encounter Care Teams Deboner Relationship Specialty Start Date End Date [facility] Medical PCP - General 09/21/21 [address] [address] [place], [place] [phone] S[facility] 09/21/21 [address] [address] [place] [address] documented as of this encounter
--- OUTSIDE RECORDS SUMMARY | 2021-12-18 12:16 | XMS_ITS | Encounter Summary ---
:1980 Author Organization [place] Address [address] [place] [address] Care Team Providers Name Role Phone None Primary Care Provider Unavailable Encounter Details Date Type Department Care Team Description 12/12/1997 Imported Provider [facility] Iron Mckay, Valentine [facility] [address] [place] [address] SIDNEY [phone] [place] [address] (Wo rk) Social History Tobacco Use Types [...] 12/20/2021 Appointment Behavioral Health Sarai Weaver MD [address] [place] [address] (Wo rk) documented as of this encounter Visit Diagnoses Not on filedocumented in this encounter Care Teams Reactor Operator Relationship Specialty Start Date End Date None PCP - General 12/28/99 01/15/13 documented as of this encounter
--- OUTSIDE RECORDS SUMMARY | 2021-12-18 12:16 | XMS_ITS | Encounter Summary ---
:1980 Author Organization [place] Address [address] [place] [address] Care Team Providers Name Role Phone None Primary Care Provider Unavailable Encounter Details Date Type Department Care Team Description 03/13/1997 Imported Provider [facility] Iron Mckay, Note [facility] 919 [place] [address] [place] [phone] [place] [address] (Wo rk) Social History Tobacco Use Types Packs/Day Years Used Date Smoking Tobacco: Never Assessed Sex Assigned at Date Recorded Not on file documented as of this encounter Progress Notes Iron Mckay MD - 03/13/1997 12:00 AM WATER TREATMENT PLANT OPERATOR Eleventh grade student in for a followup [...] 20 mg of Ritalin. Iron Mckay M.D./cap R TREATMENT PLANT OPERATOR documented in this encounter Plan of Treatment Upcoming Encounters Date Type Specialty Care Team Description 12/20/2021 Appointment Behavioral Health [facility] MD alexei [address] [place] [address] (Wo rk) documented as of this encounter Visit Diagnoses Not on filedocumented in this encounter Care Teams Laboratory Animal Care Veterinarian Relationship Specialty Start Date End Date None PCP - General 12/28/99 01/15/13 documented as of this encounter
--- OUTSIDE RECORDS SUMMARY | 2021-12-18 12:16 | XMS_ITS | Encounter Summary ---
:1980 Author Organization [facility] Address [address] [place] [address] Care Team Providers Name Role Phone None Primary Care Provider Unavailable Encounter Details Date Type Department Care Team Description 10/08/1998 Imported Provider [facility] MD Eddie [address] [facility] [address] [place] [address] [facility] [phone] [place] [address] (Wo rk) Social History Tobacco [...] two more weeks. RTC PRN. Omar Yu M.D./beverley documented in this encounter Plan of Treatment Upcoming Encounters Date Type Specialty Care Team Description 12/20/2021 Appointment Behavioral Health [place] [address] [place] [address] (Wo rk) documented as of this encounter Visit Diagnoses Not on filedocumented in this encounter Care Teams Tightener Relationship Specialty Start Date End Date None PCP - General 12/28/99 01/15/13 documented as of this encounter
--- OUTSIDE RECORDS SUMMARY | 2021-12-18 12:16 | XMS_ITS | Encounter Summary ---
:1980 Author Organization [place] Address [address] [place] [address] Care Team Providers Name Role Phone None Primary Care Provider Unavailable Encounter Details Date Type Department Care Team Description 04/01/1995 Imported Provider [facility] Kenneth Howe , Note [facility] [address] [place] [address] [place] [phone] (Wo rk) Social History Tobacco Use Types Packs/Day Years Used Date Smoking Tobacco: Never Assessed Sex Assigned at Date Recorded Not on file documented as of this encounter Progress Notes Kenneth Howe MD - 04/01/1995 12:00 AM AIRCRAFT SYSTEMS TECHNICIAN SUBJECTIVE: Comes in for recheck of his [...] him to full activities. Spencer Howe M.D./lrtevin RAFT SYSTEMS TECHNICIAN documented in this encounter Plan of Treatment Upcoming Encounters Date Type Specialty Care Team Description 12/20/2021 Appointment [facility] [place] MD alexei [address] [place] [address] (Wo rk) documented as of this encounter Visit Diagnoses Not on filedocumented in this encounter Care Teams Painter Bottom Relationship Specialty Start Date End Date None PCP - General 12/28/99 01/15/13 documented as of this encounter
--- OUTSIDE RECORDS SUMMARY | 2021-12-18 12:16 | XMS_ITS | Encounter Summary ---
:1980 Author Organization [place] Address [address] [place] [address] Care Team Providers Name Role Phone None Primary Care Provider Unavailable Encounter Details Date Type Department Care Team Description 02/17/1995 X-Ray Tracking [facility] Omar Talamantes MD [address] [phone] Social History Tobacco Use Types Packs/Day Years Used Date Smoking Tobacco: Never Assessed Sex Assigned at Date Recorded Not on file documented as of this encounter Progress Notes Omar Talamantes MD - 02/17/1995 12:00 AM STOVE CLEANER ENTERED BY: JOSÉ LUIS X-RAY NUMBER: [id number] CLINIC LOCATION: [facility] ORDERING PHYSICIAN: Omar Talamantes M.D. X-RAY PROCEDURE: Rt. wrist E CLEANER documented in this encounter Plan of Treatment Upcoming Encounters Date Type Specialty Care Team Description 12/20/2021 Appointment Behavioral Health Sarai Weaver MD [address] [place], [place] [address] (Wo rk) documented as of this encounter Visit Diagnoses Not on filedocumented in this encounter Care Teams Engineer Systems Relationship Specialty Start Date End Date None PCP - General 12/28/99 01/15/13 documented as of this encounter
--- OUTSIDE RECORDS SUMMARY | 2021-12-18 12:16 | XMS_ITS | Encounter Summary ---
:1980 Author Organization [facility] Address [address] [place] [address] Care Team Providers Name Role Phone None Primary Care Provider Unavailable Encounter Details Date Type Department Care Team Description 02/24/1995 Imported Provider Omar Valle, Valentine [facility] 919 [place] [address] Social History Tobacco Use Types Packs/Day Years Used Date Smoking Tobacco: Never Assessed Sex Assigned at Date Recorded Not on file documented as of this encounter Progress Notes Omar Talamantes MD - 02/24/1995 12:00 AM HAND SPRING REPAIRER HELPER SUBJECTIVE: In for recheck on his fracture. [...] all that is necessary. Omar Talamantes M.D./cap SPRING REPAIRER HELPER documented in this encounter Plan of Treatment Upcoming Encounters Date Type Specialty Care Team Description 12/20/2021 Appointment Behavioral Health Sarai Weaver MD [address] [place] [address] (Wo rk) documented as of this encounter Visit Diagnoses Not on filedocumented in this encounter Care Teams Solar Field Service Technician Relationship Specialty Start Date End Date None PCP - General 12/28/99 01/15/13 documented as of this encounter
--- OUTSIDE RECORDS SUMMARY | 2021-12-18 12:16 | XMS_ITS | Encounter Summary ---
:1980 Author Organization [place] Address [address] [place] [address] Care Team Providers Name Role Phone None Primary Care Provider Unavailable Encounter Details Date Type Department Care Team Description 01/04/1997 Imported Phone Call [facility] Sal Mckay, [facility] 919 [place] [address] [place] [phone] [place] [address] (Wo rk) Social History Tobacco Use Types Packs/Day Years Used Date Smoking Tobacco: Never Assessed Sex Assigned at Date Recorded Not on file documented as of this encounter Progress Notes Iron Mckay MD - 01/04/1997 12:00 AM SALES MANAGEMENT INTERN Mom, who works in the lab, states [...] written. They will pick it up at [facility]. He has a scheduled follow-up appointment here. Iron Mckay M.D./saba S MANAGEMENT INTERN documented in this encounter Plan of Treatment Upcoming Encounters Date Type Specialty Care Team Description 12/20/2021 Appointment Behavioral Health Sarai Weaver MD [address] [place], [place] [address] [address] (Wo rk) documented as of this encounter Visit Diagnoses Not on filedocumented in this encounter Care Teams Poultry Husbandry Teacher Relationship Specialty Start Date End Date None PCP - General 12/28/99 01/15/13 documented as of this encounter
--- OUTSIDE RECORDS SUMMARY | 2021-12-18 12:16 | XMS_ITS | Encounter Summary ---
:1980 Author Organization [facility] Address [address] [place] [address] Care Team Providers Name Role Phone None Primary Care Provider Unavailable Encounter Details Date Type Department Care Team Description 03/15/1996 Imported Provider [facility] Iron Mckay, Note [facility] [address] [place], [place] [phone] [place] [address] [place] [address] (Wo rk) Social History Tobacco Use Types Packs/Day Years Used Date Smoking Tobacco: Never Assessed Sex Assigned at Date Recorded Not on file documented as of this encounter Progress Notes Iron Mckay MD - 03/15/1996 12:00 AM LATHING SUPERVISOR A 15 year old comes in for follow-u of his AD/HD. He states that he is doing pretty well in school,getting Cs. He complains, whoever, of being shaky and feeling depressed when he comes off of his afternoon dose about 2:30-3:00 p.m. He gets 15 in the morning and 10 at noon. It may be that the noon dose is just not enough to carry him through. A couple of options. One is to bump his noon dose up, or the other thing is to give him 5 mg bump at about 3:00 p.m. and see if that will help him tail out the med better. He is going to try the latter. Wrote for 03/15, #100, 1 03/03, one in half, and then a noon, 3:00 p.m. respective, and then also for 04/15. He apparently will need a sports physical for track in the spring. What we will do is have him stop back in and get his physical at that time and recheck his meds. He will call if he is not improving. I also noted that mother works in a lab and had done a CBC and a profile on him and these were satisfactory. Iron Mckay M.D./dick ING SUPERVISOR documented in this encounter Plan of Treatment Upcoming Encounters Date Type Specialty Care Team Description 12/20/2021 Appointment Behavioral Health Sarai Weaver MD [address] [place] [address] (Wo rk) documented as of this encounter Visit Diagnoses Not on filedocumented in this encounter Care Teams Pouncing Machine Operator Relationship Specialty Start Date End Date None PCP - General 12/28/99 01/15/13 documented as of this encounter
--- OUTSIDE RECORDS SUMMARY | 2021-12-18 12:16 | XMS_ITS | Encounter Summary ---
:1980 Author Organization [facility] Address [address] [place] [address] Care Team Providers Name Role Phone None Primary Care Provider Unavailable Encounter Details Date Type Department Care Team Description 11/18/1994 Imported Provider [facility] Iron Mckay, Valentine [facility] [address] [place], [place] [phone] [place] [address] [place] [address] (Wo rk) Social History Tobacco Use Types [...] 12/20/2021 Appointment Behavioral Health Sarai Weaver MD [address], [place] [address] (Wo rk) documented as of this encounter Visit Diagnoses Not on filedocumented in this encounter Care Teams Water Main Pipe Layer Relationship Specialty Start Date End Date None PCP - General 12/28/99 01/15/13 documented as of this encounter
--- OUTSIDE RECORDS SUMMARY | 2021-12-18 12:16 | XMS_ITS | Encounter Summary ---
:1980 Author Organization [facility] Address [address] [place] [address] Care Team Providers Name Role Phone None Primary Care Provider Unavailable Encounter Details Date Type Department Care Team Description 04/25/1997 Imported Provider [facility] MD Eddie [address] [place] [address] [address] [facility] [phone] [place] [address] (Wo rk) Social History Tobacco Use Types Packs/Day Years Used Date Smoking Tobacco: Never Assessed Sex Assigned at Date Recorded Not on file documented as of this encounter Progress Notes Omar Yu MD - 04/25/1997 12:00 AM SPEED BELT SANDER EXAM: Examination shows no flank tenderness. The [...] may require no treatment. Omar Yu M.D./pdn D BELT SANDER documented in this encounter Plan of Treatment Upcoming Encounters Date Type Specialty Care Team Description 12/20/2021 Appointment Behavioral Health Sarai Weaver MD [address] [place] [address] (Wo rk) documented as of this encounter Visit Diagnoses Not on filedocumented in this encounter Care Teams Bag Making Machine Tender Relationship Specialty Start Date End Date None PCP - General 12/28/99 01/15/13 documented as of this encounter
--- OUTSIDE RECORDS SUMMARY | 2021-12-18 12:16 | XMS_ITS | Encounter Summary ---
:1980 Author Organization [place] Address [address] [place] [address] Care Team Providers Name Role Phone None Primary Care Provider Unavailable Encounter Details Date Type Department Care Team Description 06/04/1992 Imported Refill [facility] Iron Mckay, [facility] 9[address] [place] [address] 3 [facility] [phone] [place], [place] [phone] (Wo rk) Social History Tobacco Use Types [...] 12/20/2021 Appointment Behavioral Health Sarai Weaver MD [address] [place] [address] (Wo rk) documented as of this encounter Visit Diagnoses Not on filedocumented in this encounter Care Teams Plant And Instrument Engineer Relationship Specialty Start Date End Date None PCP - General 12/28/99 01/15/13 documented as of this encounter
--- OUTSIDE RECORDS SUMMARY | 2021-12-18 12:16 | XMS_ITS | Encounter Summary ---
:1980 Author Organization [facility] Address [address] [place] [address] Care Team Providers Name Role Phone None Primary Care Provider Unavailable Encounter Details Date Type Department Care Team Description 03/12/1995 X-Ray Tracking [facility] Colette Mckay MD [phone] [place] [address] [phone] (Wo rk) Social History Tobacco Use Types Packs/Day Years Used Date Smoking Tobacco: Never Assessed Sex Assigned at Date Recorded Not on file documented as of this encounter Progress Notes Iron Mckay MD - 03/12/1995 12:00 AM PROOFREADER ENTERED BY: JOSÉ LUIS X-RAY NUMBER: [id number] CLINIC LOCATION: [facility] ORDERING PHYSICIAN: Iron Mckay M.D. X-RAY PROCEDURE: Rt. wrist FREADER documented in this encounter Plan of Treatment Upcoming Encounters Date Type Specialty Care Team Description 12/20/2021 Appointment Behavioral Health Sarai Weaver MD [address] [place], [place] [address] (Wo rk) documented as of this encounter Visit Diagnoses Not on filedocumented in this encounter Care Teams Ghost Writer Relationship Specialty Start Date End Date None PCP - General 12/28/99 01/15/13 documented as of this encounter
--- OUTSIDE RECORDS SUMMARY | 2021-12-18 12:16 | XMS_ITS | Encounter Summary ---
:1980 Author Organization [facility] Address [facility] [place] [address] Care Team Providers Name Role Phone None Primary Care Provider Unavailable Encounter Details Date Type Department Care Team Description 01/05/1996 Imported Refill [facility] [employer] Iron Mckay, [facility] 919 [place] [address] 541 [facility] [phone] [place] [address] (Wo rk) Social History Tobacco Use Types Packs/Day Years Used Date Smoking Tobacco: Never Assessed Sex Assigned at Date Recorded Not on file documented as of this encounter Progress Notes Iron Mckay MD - 01/05/1996 12:00 AM SCOURING TRAIN OPERATOR Ritalin #100 of the 10 mg, 15 [...] back before too long. Iron Mckay M.D./lrm RING TRAIN OPERATOR documented in this encounter Plan of Treatment Upcoming Encounters Date Type Specialty Care Team Description 12/20/2021 Appointment Behavioral Health Sarai Weaver MD [address] [place] [address] (Wo rk) documented as of this encounter Visit Diagnoses Not on filedocumented in this encounter Care Teams Apartment Rental Clerk Relationship Specialty Start Date End Date None PCP - General 12/28/99 01/15/13 documented as of this encounter
--- OUTSIDE RECORDS SUMMARY | 2021-12-18 12:16 | XMS_ITS | Encounter Summary ---
:1980 Author Organization [facility] Address [address] [place] [address] Care Team Providers Name Role Phone None Primary Care Provider Unavailable Encounter Details Date Type Department Care Team Description 04/01/1995 X-Ray Tracking [facility] Tim Howe MD [address] [address] [phone] (Wo rk) Social History Tobacco Use Types Packs/Day Years Used Date Smoking Tobacco: Never Assessed Sex Assigned at Date Recorded Not on file documented as of this encounter Progress Notes Kenneth Howe MD - 04/01/1995 12:00 AM ADVERTISING ACCOUNT REPRESENTATIVE ENTERED BY: X-RAY NUMBER: [id number] CLINIC LOCATION: [facility] ORDERING PHYSICIAN: Spencer Howe M.D. X-RAY PROCEDURE: LT. WRIST RTISING ACCOUNT REPRESENTATIVE documented in this encounter Plan of Treatment Upcoming Encounters Date Type Specialty Care Team Description 12/20/2021 Appointment Behavioral Health Sarai Weaver MD [address] [place], [place] [address] (Wo rk) documented as of this encounter Visit Diagnoses Not on filedocumented in this encounter Care Teams Block Captain Relationship Specialty Start Date End Date None PCP - General 12/28/99 01/15/13 documented as of this encounter
--- OUTSIDE RECORDS SUMMARY | 2021-12-18 12:16 | XMS_ITS | Encounter Summary ---
:1980 Author Organization [place] Address [address] [place] [address] Care Team Providers Name Role Phone None Primary Care Provider Unavailable Encounter Details Date Type Department Care Team Description 12/23/1993 Imported Provider [facility] Iron Mckay, Note [facility] [address] [place] [address] [place] [phone] [place] [address] (Wo rk) Social History Tobacco Use Types [...] Care Team Description 12/20/[address] [facility] Id MD alexei [address] [place] [address] (Wo rk) documented as of this encounter Visit Diagnoses Not on filedocumented in this encounter Care Teams Engraver Apprentice Decorative Relationship Specialty Start Date End Date None PCP - General 12/28/99 01/15/13 documented as of this encounter
--- OUTSIDE RECORDS SUMMARY | 2021-12-18 12:16 | XMS_ITS | Encounter Summary ---
:1980 Author Organization [facility] Address [address] [place] [address] Care Team Providers Name Role Phone None Primary Care Provider Unavailable Encounter Details Date Type Department Care Team Description 02/17/1995 Imported Provider Omar Valle, Valentine [facility] 919 [place] [address] Social History Tobacco Use Types Packs/Day Years Used Date Smoking Tobacco: Never Assessed Sex Assigned at Date Recorded Not on file documented as of this encounter Progress Notes Omar Talamantes MD - 02/17/1995 12:00 AM COREMAKER HELPER SUBJECTIVE: He fell on his outstretched wrist [...] a short arm fiberglass cast. Omar Talamantes M.D./dick MAKER HELPER documented in this encounter Plan of Treatment Upcoming Encounters Date Type Specialty Care Team Description 12/20/2021 Appointment Behavioral Health Sarai Weaver MD [address] [place], [place] [address] (Wo rk) documented as of this encounter Visit Diagnoses Not on filedocumented in this encounter Care Teams Pension Fund Manager Relationship Specialty Start Date End Date None PCP - General 12/28/99 01/15/13 documented as of this encounter
--- OUTSIDE RECORDS SUMMARY | 2021-12-18 12:16 | XMS_ITS | Encounter Summary ---
:1980 Author Organization [place] Address [address] [place] [address] Care Team Providers Name Role Phone None Primary Care Provider Unavailable Encounter Details Date Type Department Care Team Description 05/16/1997 Imported Refill [facility] Iron Mckay, [facility] 919 [place] [address] [facility] [phone] [place], [place] [phone] (Wo rk) Social History Tobacco Use Types Packs/Day Years Used Date Smoking Tobacco: Never Assessed Sex Assigned at Date Recorded Not on file documented as of this encounter Progress Notes Iron Mckay MD - 05/16/1997 12:00 AM PATTERN GATER MEDICATION NAME: Ritalin DOSAGE: 10 mg FREQUENCY: 1-1/2 b.i.d. NUMBER: 100 COMMENTS: The patient apparently took his prescription for Ritalin to a pharmacy which is no longercovered under their insurance program. He is apparently still having stomachaches and we may want to look at Adderall. Stepmother will talk to him about that. Iron Mckay M.D./lrm ERN GATER documented in this encounter Plan of Treatment Upcoming Encounters Date Type Specialty Care Team Description 12/20/2021 Appointment Behavioral Health Sarai Weaver MD [address] [place] [address] (Wo rk) documented as of this encounter Visit Diagnoses Not on filedocumented in this encounter Care Teams Special Education Secretary Relationship Specialty Start Date End Date None PCP - General 12/28/99 01/15/13 documented as of this encounter
--- OUTSIDE RECORDS SUMMARY | 2021-12-18 12:16 | XMS_ITS | Encounter Summary ---
:1980 Author Organization [place] Address [address] [place] [address] Care Team Providers Name Role Phone None Primary Care Provider Unavailable Encounter Details Date Type Department Care Team Description 02/18/1995 Imported Provider [facility] Kenneth Howe , Note [facility] [address] [place] [address] P[place] [phone] (Wo rk) Social History Tobacco Use Types Packs/Day Years Used Date Smoking Tobacco: Never Assessed Sex Assigned at Date Recorded Not on file documented as of this encounter Progress Notes Kenneth Howe MD - 02/18/1995 12:00 AM DRAFTER SUBJECTIVE: This 14-year-old adolescent was seen by [...] he can return to normal activity. Sunny SilvermanMS3/Spencer Howe M.D./cap TER documented in this encounter Plan of Treatment Upcoming Encounters Date Type Specialty Care Team Description 12/20/2021 Appointment Behavioral Health Sarai Weaver MD [address] [place] [address] (Wo rk) documented as of this encounter Visit Diagnoses Not on filedocumented in this encounter Care Teams Table Games Dealer Relationship Specialty Start Date End Date None PCP - General 12/28/99 01/15/13 documented as of this encounter
--- OUTSIDE RECORDS SUMMARY | 2021-12-18 12:16 | XMS_ITS | Encounter Summary ---
:1980 Author Organization [place] Address [address] [place] [address] Care Team Providers Name Role Phone None Primary Care Provider Unavailable Encounter Details Date Type Department Care Team Description 04/29/1993 Imported Provider [facility] Iron Mckay, Note [facility] [address] [place] [address] [place] [phone] [place] [address] (Wo rk) Social History Tobacco Use Types Packs/Day Years Used Date Smoking Tobacco: Never Assessed Sex Assigned at Date Recorded Not on file documented as of this encounter Progress Notes Iron Mckay MD - 04/29/1993 12:00 AM CLEANING HANDYMAN Augustus comes back for followup as recommended. [...] hears from the school that he gets senior living if he forgets to bring pencil or [...] with a disappointing outcome. IMP: ADHD. RMB/nury NING HANDYMAN documented in this encounter Plan of Treatment Upcoming Encounters Date Type Specialty Care Team Description 12/20/2021 Appointment Behavioral Health Sarai Weaver MD [address] [address] (Wo rk) documented as of this encounter Visit Diagnoses Not on filedocumented in this encounter Care Teams Hydroelectric Station Operator Chief Relationship Specialty Start Date End Date None PCP - General 12/28/99 01/15/13 documented as of this encounter
--- OUTSIDE RECORDS SUMMARY | 2021-12-18 12:16 | XMS_ITS | Encounter Summary ---
:1980 Author Organization [facility] Address [address] [place] [address] Care Team Providers Name Role Phone None Primary Care Provider Unavailable Encounter Details Date Type Department Care Team Description 03/12/1995 Imported Provider [facility] Iron Mckay, Note [facility] [address] [place] [address] [place] [phone] [place] [address] (Wo rk) Social History Tobacco Use Types Packs/Day Years Used Date Smoking Tobacco: Never Assessed Sex Assigned at Date Recorded Not on file documented as of this encounter Progress Notes Iron Mckay MD - 03/12/1995 12:00 AM CONFERENCE SPECIALIST Comes in primarily for cast check on [...] would like to start it after study brand, 15 mg, then get him later, at lunch hour, and see ifhe lasts longer through the afternoon. I think this is fine. Dad does not want to increase his dose at this time. I wrote for another 2 months, for 03/12 and 04/12, #100, of the 10 mg. He takes 1-12 b.i.d. Then we will follow up subsequently or if there are problems. Iron Mckay M.D./lrtevin ERENCE SPECIALIST documented in this encounter Plan of Treatment Upcoming Encounters Date Type Specialty Care Team Description 12/20/2021 Appointment [facility] [place], [place] MD alexei [address] [place] [id number] (Wo rk) documented as of this encounter Visit Diagnoses Not on filedocumented in this encounter Care Teams Charging Car Operator Relationship Specialty Start Date End Date None PCP - General 12/28/99 01/15/13 documented as of this encounter
--- OUTSIDE RECORDS SUMMARY | 2021-12-18 12:16 | XMS_ITS | Encounter Summary ---
:1980 Author Organization [place] Address [address] [place] [address] Care Team Providers Name Role Phone None Primary Care Provider Unavailable Encounter Details Date Type Department Care Team Description 05/11/1998 Imported Provider [facility] Iron Mckay, Note [facility] [address] [place] [address] [place] [phone] [place] [address] (Wo rk) Social History Tobacco Use Types Packs/Day Years Used Date Smoking Tobacco: Never Assessed Sex Assigned at Date Recorded Not on file documented as of this encounter Progress Notes Iron Mckay - 05/11/1998 12:00 AM SVP [employer] AD SALES SUBJECTIVE: Gentleman is seen in urgent care [...] at this time. Iron Mckay M.D./jose manuel DIGITAL AD SALES documented in this encounter Plan of Treatment Upcoming Encounters Date Type Specialty Care Team Description 12/20/2021 Appointment Behavioral Health [facility] [place] MD alexei [address] [place] [address] (Wo rk) documented as of this encounter Visit Diagnoses Not on filedocumented in this encounter Care Teams Head Of Sales Promotion Relationship Specialty Start Date End Date None PCP - General 12/28/99 01/15/13 documented as of this encounter
--- OUTSIDE RECORDS SUMMARY | 2021-12-18 12:16 | XMS_ITS | Encounter Summary ---
:1980 Author Organization [facility] Address [address] [place] [address] Care Team Providers Name Role Phone None Primary Care Provider Unavailable Encounter Details Date Type Department Care Team Description 07/18/1997 Imported Refill [facility] Iron Mckay, [facility] [address] [place] [address] [place] [address] [place], [place] [phone] (Wo rk) Social History Tobacco Use Types Packs/Day Years Used Date Smoking Tobacco: Never Assessed Sex Assigned at Date Recorded Not on file documented as of this encounter Progress Notes Iron Mckay MD - 07/18/1997 12:00 AM CDT MEDICATION NAME: Ritalin DOSAGE: 10 mg FREQUENCY: BID NUMBER: 100 NUMBER OF REFILLS: PHARMACY NAME: [facility] COMMENTS: No problems with this with sleep, appetite or ticks. Iron Mckay M.D./saurav documented in this encounter Plan of Treatment Upcoming Encounters Date Type Specialty Care Team Description 12/20/2021 Appointment [facility] Sarai [place] MD [address] [place], [place] [phone] (Wo rk) documented as of this encounter Visit Diagnoses Not on filedocumented in this encounter Care Teams Morning News Producer Relationship Specialty Start Date End Date None PCP - General 12/28/99 01/15/13 documented as of this encounter
--- OUTSIDE RECORDS SUMMARY | 2021-12-18 12:16 | XMS_ITS | Encounter Summary ---
:1980 Author Organization [place] Address [facility] [place] [address] Care Team Providers Name Role Phone None Primary Care Provider Unavailable Encounter Details Date Type Department Care Team Description 07/15/1995 [facility] Eddie [address] [facility] [place] [address] [address] [facility] [phone] [place] [address] (Wo rk) Social History Tobacco [...] of 5 days. RTC p.r.n. Omar Yu M.D./lrm documented in this encounter Plan of Treatment Upcoming Encounters Date Type Specialty Care Team Description 12/20/2021 Appointment [facility] Sarai [place] MD [address] [place] [address] (Wo rk) documented as of this encounter Visit Diagnoses Not on filedocumented in this encounter Care Teams Manager Hospice Relationship Specialty Start Date End Date None PCP - General 12/28/99 01/15/13 documented as of this encounter
--- OUTSIDE RECORDS SUMMARY | 2021-12-18 12:17 | XMS_ITS | Clinical Summary ---
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 Temperature 36.6 ??C (97.8 ??F) 11/27/2016 4:44 [...] WC WORKERS [id number] Effective for [address] [facility] [place] [address] [facility] [id number] 2019-Present [address] [address] [place] [address] (Work) [phone] [address] [employer] Workers Comp Self 1980 [address] [phone] [place], [place] (Work) [phone] [employer] Employer 03/02/2000 [employer] [address] [employer] (Home) [address] [place] [address] Liudmila LARSEN (Work) [phone] Care Teams Hand Turner Relationship Specialty Start Date End Date Pcp, No PCP - General 11/27/16 .
== END 2021-12-07 16:58 | disposition home or self-care (01) ==
LOC: AMB 12-18 12:05
PROVIDERS: Visit Provider Family Medicine
DX: S29.9XXA Unspecified injury of thorax, initial encounter (principal); V49.3XXA Car occupant (driver) (passenger) injured in unspecified nontraffic accident, initial encounter; Y92.410 Unspecified street and highway as the place of occurrence of the external cause; F10.129 Alcohol abuse with intoxication, unspecified
CPT/HCPCS: A0998

== ENCOUNTER 2021-12-07 17:57 | Emergency (ER) | payer OTHER, SELFPAY ==
[2021-12-07] VITALS (21 sets, daily range): BP systolic 115–129; BP diastolic 74–94; PULSE 61–84; TEMP 36.5; O2SAT 99–100
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
[2021-12-07] MEDS: MORPHINE 2 MG/ML inj IVP (19:25)
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
--- OUTSIDE RECORDS SUMMARY | 2021-12-07 20:32 | XMS_ITS | Encounter Summary ---
:1980 Author Organization [employer] Address [address], [place] [address] Care Team Providers Name Role Phone Md NATHANIEL Boateng Primary Care Provider Reason for Visit Reason Comments Other Encounter Details Date Type Department Care Team Description 01/29/2015 Telephone [facility] [address] V[address] Veloz [facility] Emeli Miranda, RN [address] [place], [place] [id number] Social History Tobacco Use Types Packs/Day Years Used Date Smoking Tobacco: Never Alcohol Use Standard Drinks/Week Comments Not Asked 0 (1 standard drink = 0.6 oz pure alcoho l) Sex Assigned at Date Recorded Not on file documented as of this encounter Nursing Notes Liya Veloz RN - 01/29/2015 1:02 PM CST Patient 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 He states that he has a sore throat around the area that he felt the snap. He is asking for evaluation. Recommended PCP appointment. R ADMINISTRATOR documented in this encounter Plan of Treatment Not on filedocumented as of this encounter Visit Diagnoses Not on filedocumented in this encounter Care Teams Rn Bone Marrow Transplant Relationship Specialty Start Date End Date Md Boateng MD PCP - General 10/18/12 [place], [place] [phone] documented as of this encounter
--- OUTSIDE RECORDS SUMMARY | 2021-12-07 20:32 | XMS_ITS | Encounter Summary ---
:1980 [facility] Address [address] [place] [address] Care Team Providers Name Role Phone Md NATHANIEL Boateng Primary Care Provider Encounter Details Date Type Department Care Team Description 05/26/2013 [facility] [address] S/P ce rvical spinal fusion Radiology [address] [facility] [place] [address] Social History Tobacco Use Types Packs/Day Years Used Date Smoking Tobacco: Never Alcohol Use Standard Drinks/Week Comments Not Asked 0 (1 standard drink = 0.6 oz pure alcoho l) Sex Assigned at Date Recorded Not on file documented as of this encounter Plan of Treatment Not on filedocumented as of this encounter Procedures Procedure Name Priority Date/Time Associated Diagnosis Comme nts XR CERVICAL SPINE 2 Routine 05/26/2013 3:06 PM S/P cervical sp inal Results for this VIEWS CDT fusion procedure are i n the results section. documented in this encounter Results XR Cervical Spine 2 Views (05/26/2013 3:06 PM CDT) Anatomical Region Laterality Modality Spine, C-Spine, Neck Other Specimen (Source) Anatomical Location Collection Method / Collectio n Time Received Time / Laterality Volume Narrative 05/26/2013 3:17 PM CDT COMPARISON: 06/22/2012 FINDINGS: Stable and satisfactory appear ance anterior spinal fusion change at C5-6. ??No interval complication. ?? Procedure Note Mj Correa MD - 08/18/2015Formatti ng of this note might be different from the original. COMPARISON: 06/22/2012 FINDINGS: Stable and satisfactory appear ance anterior spinal fusion change at C5-6. No interval complication. Vern Garcia MD RAD [facility] documented in this encounter Visit Diagnoses Diagnosis S/P cervical spinal fusion Arthrodesis status documented in this encounter Care Teams Radio Personality Relationship Specialty Start Date End Date Md Kilo, PCP - General 10/18/12 [place] [address] documented as of this encounter
--- OUTSIDE RECORDS SUMMARY | 2021-12-07 20:32 | XMS_ITS | Encounter Summary ---
:1980 Author Organization [employer] [facility] Address [address] [place] [address] Care Team Providers Name Role Phone Md NATHANIEL Boateng Primary Care Provider Reason for Visit Reason Comments Cough CONGESTION, NASAL Encounter Details Date Type Department Care Team Description 10/17/[address] [facility] re Princess Parra, PAKattC Cough; [address] [place] [address] [place] [address] [phone] Social History Tobacco Use Types Packs/Day Years Used Date Smoking Tobacco: Never Alcohol Use Standard Drinks/Week Comments Not Asked 0 (1 standard drink = 0.6 oz pure alcoho l) Sex Assigned at Date Recorded Not on file documented as of this encounter Last Filed Vital Signs Vital Sign Reading Time Taken Comments Blood Pressure 119/72 10/17/2013 6:37 PM CDT Pulse 82 10/17/2013 6:37 PM CDT Temperature 36.4 ??C (97.5 ??F) 10/17/2013 6:37 PM CDT Respiratory Rate 16 10/17/2013 6:37 PM CDT Oxygen Saturation 96% 10/17/2013 6:37 PM CDT Inhaled Oxygen Concentration - - Weight - - Height - - Body Mass Index - - documented in this encounter Medications at Time of Discharge Medication Sig Dispensed Refills Start Date End Date 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 cyclobenzaprine (AKA Take 1 tablet by 30 tablet 0 3 FLEXERIL) 10 MG mouth 3 times daily tabletIndications: as needed for Cervicalgia Muscle spasms. Dextromethorphan HBr Take by mouth. 0 03/30/2013 (VICKS DAYQUIL COUGH OR) LORazepam (AKA ATIVAN) 0.5 Take 1 tablet by 90 3 09/2009 MG tablet mouth 3 times daily as needed. LW Addl Instr:Indicated for: Anxiety ondansetron (ZOFRAN) 8 MG Take 1 tablet by 30 tablet 0 05/2012 tablet mouth every 8 hours as needed for Nausea or Vomiting. amoxicillin-clavulanate Take 1 tablet by 20 tablet 0 201310/27/2013 (aka AUGMENTIN) tablet mouth 2 times daily for 10 days. cetirizine (aka zyRTEC) Take 10 mg by mouth 0 09/07/2015 tablet daily (every 24 hours). ondansetron (aka ZOFRAN) Take 1 tablet by 30 tablet 0 01/0309/07/2015 tablet mouth every 8 hours as needed for Nausea or Vomiting. VICKS DAYQUIL COUGH OR Take by mouth. 0 4 09/07/2015 documented as of this encounter ED Notes Princess Parra PA-C - 10/17/2013 8:54 PM CDT ED Provider Notes signed by Princess Parra PA-C at 10/24/13 1321 Author: Princess Parra PA-C Service: (none) Author Type: Physician Practice Advisor Filed: 10/24/13 1321 Note Time: 10/18/139 Status: Signed Field Services Director: Princess Parra PA-C (Physician Practice Advisor) NAME: LORA STEWART MR#: [id number] CSN: [id number] AUTHENTICATING CLINICIAN: Princess Parra PA-C CONFIRM #: [id number] LOC: 520 URGENT CARE PROGRESS NOTE DATE OF VISIT: 10/17/2013 : 1980 A 33-year-old male here today for cough. He has had 5 days of productive cough with a lot of fatigueand malaise. Last night he developed chills, he has had sweats all day. He feels chest congestion without shortness of breath. Today he has developed nasal congestion, but he does have seasonal allergies and forgot to take his Zyrtec. No history of asthma. No foreign travel. PAST MEDICAL HISTORY: Reviewed online in [employer]. MEDICINES: Reviewed online in [employer]. EXAM: Patient is a little bit ill appearing in no distress. He does not appear toxic. His breathing is nonlabored. SKIN: Clear without rash. TMs normal. Nose is clear. Oropharynx: Mucous membranes moist. No erythema. No lymphadenopathy in the neck. LUNGS: He has some central rhonchi that clear with cough. He has some intermittent crackles at both bases of the lung. HEART: Regular rate and rhythm. Sharp S1, S2. No murmurs. Chest x-ray done, read and reviewed by me showing a small infiltrate in the left lower lobe. ASSESSMENT: Pneumonia. PLAN: Augmentin 875 b.i.d. for 10 days, clear fluids. He denies any cough syrup. Rest. We discussed contagiousness of pneumonia. Told patient he should have improvement in fever and chills within 48 hours and antibiotics. The cough should gradually improve afterwards. To recheck if any worsening signs and sy mptoms or not improving as expected. Patient comfortable with plan, otherwise recheck p.r.n. TATIANNAT:ANGELA C: CONFIRM #: [id number] documented in this encounter Miscellaneous Notes Miscellaneous - 10/17/2013 8:31 PM CDTNotes Recorded by Jae Salomon RN on 10/18/2013 at 5:32 PMpatient advised of provider message advised to follow up in 3 weeks with primary care patient verbalized understanding------Notes Recorded by Duncan Epstein RN on 10/18/2013 at 5:28 PMLeft message to call back.------ Notes Recorded by Brody Chu MD on 10/18/2013 at 4:52 PMTell him xray read by radiology also called pneumonia--should f/u with PMD in 3 weeks for repeat xray to confirm resolution-Erin OF [employer] Medication History - Shorty Abbott MD - 10/17/2013 8:31 PM CDT INPATIENT MEDS Encounter Date: 10/17/13 amoxicillin-clavulanate (AUGMENTIN) 875-125 mg per tablet Start Date:10/17/13, End Date:10/27/13, Frequency:2 TIMES DAILY *No Administrations Recorded amoxicillin-clavulanate (AUGMENTIN) 875-125 mg per tablet Start Date:10/17/13, End Date:10/17/13, Frequency:2 TIMES DAILY *No Administrations Recorded cetirizine (ZYRTEC) 10 mg tablet Start Date:-, End Date:-, Frequency:DAILY *No Administrations Recorded ED AVS Snapshot - Shorty Abbott MD - 10/17/2013 8:31 PM CDT Images from the original note were not included. [facility] [address] [place] [address] Dept: [phone] [email or web address] Lora Stewart Jr. 10/17/2013 7:29 PM Hospital Encounter Description: Male : 1980 Department: [place] [facility] Thank you for choosing [facility] for your health care visit with Princess Parra PA-C. We are happy to care for you and provide this summary of your visit. Your primary adult day care worker is currently listed as Md Kilo MD. HERE IS WHAT YOU NEED TO KNOW To learn how you can take steps to stay as healthy as you can be visit [email or web address] HERE IS WHAT YOU NEED TO DO Call your clinic if you develop new or worsening symptoms or if you have questions about your visit or medications. Your to do list Future Orders Complete By Ordering Dept. Ambulatory referral to Physical Therapy As directed [facility] HERE IS INFORMATION FROM TODAY'S VISIT Reason for Visit Cough Nasal Congestion Reason for Visit History Health issues considered by your clinician today Cough Pneumonia If you had any tests, you will be notified of your abnormal results by your clinic. We Performed the Following XR Chest * PA and Left Lateral (Standard) Medications administered today None MEDICATIONS As of today's visit, these are your current medications Medication DOSAGE amoxicillin-clavulanate (AUGMENTIN) 875-125 mg per tablet Take 1 tablet by mouth 2 times daily for 10 days. 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 LW Addl Instr:Take 1-2 tabs bid Indicated for: Attention Deficit Disorder cetirizine (ZYRTEC) 10 mg tablet (Taking) Take 10 mg by mouth daily (every 24 hours). cyclobenzaprine (FLEXERIL) 10 mg tablet Take 1 tablet by mouth 3 times daily as needed for Muscle spasms. D-METHORPHAN/PE/ACETAMINOPHEN (VICKS DAYQUIL ORAL) Take by mouth. ketoconazole (NIZORAL) 2 % cream Apply topically daily (every 24 hours). LORazepam (ATIVAN) 0.5 mg tablet Take 1 tablet by mouth 3 times daily as needed. LW Addl Instr:Indicated for: Anxiety ondansetron (ZOFRAN) 8 mg tablet Take 1 tablet by mouth every 8 hours as needed for Nausea or Vomiting. Vital signs from your visit Your Vitals Were BP Pulse Temp(Src) Resp SpO2 119/72 82 36.4 ??C (97.5 ??F) (Oral) 16 96% Allergies as of 10/17/2013 No Known Allergies Immunization History Reviewed on 10/19/2012 INFLUENZA TIV 0.5 ML (36+ MOS) 12/04/2007 Td Adult (>7 years) 04/30/2000 Tdap (Adacel) 07/08/2011 About You Date Of Sex Race Ethnicity Preferred Language 1980 Male White Non- Polish This document contains confidential information about your health and care. It is provided directlyto you for your personal, private use only. documented in this encounter Plan of Treatment Not on filedocumented as of this encounter Procedures Procedure Name Priority Date/Time Associated Diagnosis Comme nts XR CHEST 2 VIEWS Routine 10/17/2013 8:23 PM Cough Resul ts for this CDT procedure are i n the results section. documented in this encounter Results XR Chest 2 Views (10/17/2013 8:23 PM CDT) Anatomical Region Laterality Modality Chest, Lung Other Specimen (Source) Anatomical Location Collection Method / Collectio n Time Received Time / Laterality Volume Narrative 10/17/2013 10:07 PM CDT COMPARISON: ??10/16/2011 FINDINGS: ??There is new airspace densit y involving the left lower lobe consistent with pneumonia. 2 views of the chest are otherwise normal. Procedure Note Shashi Sandoval MD - 08/19/2015For matting of this note might be different from the original. COMPARISON: 10/16/2011 FINDINGS: There is new airspace density involving the left lower lobe consistent with pneumonia. 2 views of the chest are otherwise normal. Transcriptions Shashi Sandoval MD - 10/17/2013 8: 31 PM CDTNotes Recorded by Jae Salomon RN on 10/18/2013 at 5:32 PMpatient advised of provider message advised to follow up in 3 weeks with primary care patient verbalized understanding------ Notes Recorded by Duncan Epstein RN on 10/18/2013 at 5:28 PMLeft message to call back.------Notes Recorded by Brody Chu MD on 10/18/2013 at 4:52 PM Tell him xray read by radiology also jesika led pneumonia--should f/u with PMD in 3 weeks for repeat xray to confirm resolution-W.LRichard Princess Parra PARobbie RAD GD documented in this encounter Visit Diagnoses Diagnosis Cough Pneumonia Pneumonia, organism unspecified Triage Assessment Note - Sarah Caballero RN - 10/17/2013 6:37 PM CDT Sx since . Pt reports chills/sweats/bodyaches/fatigue. Denies recent travel. Motrin @ 1800 documented in this encounter Care Teams Sheet Catcher Relationship Specialty Start Date End Date Md Boateng MD PCP - General 10/18/12 [place] [address] documented as of this encounter
--- OUTSIDE RECORDS SUMMARY | 2021-12-07 20:32 | XMS_ITS | Encounter Summary ---
:1980 Author Organization [employer] Address [address] [facility] [place] [address] Care Team Providers Name Role Phone Md NATHANIEL Boateng Primary Care Provider Reason for Visit Reason Comments Cough Encounter Details Date Type Department Care Team Description 05/15/2016 Hospital Encounter [facility] Marcia Tyler S ore throat (Primary Dx); Becca Hernandez PA-C Exposure to strep throat; [id number] Acute suppura tive otitis media of left ear [place] [address] [phone] Social History Tobacco Use Types Packs/Day Years Used Date Smoking Tobacco: Former Cigarettes 1 4 Comments: Smoking History Packs/day: Alcohol Use Standard Drinks/Week Comments Yes 0 (1 standard drink = 0.6 oz pure alcoho l) occasionally Alcohol Habits Answer Date Recorded How often do you have a drink containing alcohol? Not asked How many drinks containing alcohol do you have on a Not aske d typical day when you are drinking? How often do you have six or more drinks on one occasion? No t asked Comment: occasionally 10/19/2015 Sex Assigned at Date Recorded Not on file documented as of this encounter Last Filed Vital Signs Vital Sign Reading Time Taken Comments Blood Pressure 127/77 05/15/2016 6:16 PM CDT Pulse 65 05/15/2016 6:16 PM CDT Temperature 36.6 ??C (97.8 ??F) 05/15/2016 6:16 PM CDT Respiratory Rate 16 05/15/2016 6:16 PM CDT Oxygen Saturation 100% 05/15/2016 6:16 PM CDT Inhaled Oxygen Concentration - - Weight - - Height - - Body Mass Index - - documented in this encounter Discharge Instructions AttachmentsThe following attachments cannot be sent through Care Everywhere.SORE THROAT (GUYANESE)OTITIS MEDIA (GUYANESE)documented in this encounter Medications at Time of Discharge Medication Sig Dispensed Refills Start Date End Date 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 amoxicillin (AMOXIL) 500 Take 1 Cap by mouth 30 Cap 0 05/25/2016 MG capsule three times a day for 10 days. documented as of this encounter ED Notes Marcia Tyler PA-C - 05/15/2016 6:35 PM CDT [facility] Patient: Augustus Ramirez Date of : 1980 (36 y.o.) Subjective CHIEF COMPLAINT: Chief Complaint Patient presents with ??? Cough HISTORY OF PRESENT ILLNESS: Augustus Ramirez is a 36 y.o. male who presents to urgent care for evaluation of a sore throat that began gradually yesterday. Pain has been constant, but is worse with swallowing. Associated symptoms include: nasal congestion, cough, left ear pain, generalized fatigue, postnasal drip. Fever has been absent. Treatments tried include: none. He denies fever, chills, rhinorrhea, chest pain, hemoptysis, wheezing, abdominal pain, nausea, vomiting, diarrhea, or other physical complaints. Sick contacts: Hischildren are positive for strep throat and influenza within the past week. The patient's past medial history, social history, surgical history, family history, medications, and allergies were reviewed in [facility] and updated as appropriate. Significant factors are outlined in theHPI. ALLERGIES: No Known Allergies REVIEW OF SYSTEMS: A comprehensive review of systems was performed and was negative, except as noted in the HPI. Objective PHYSICAL EXAM: VITALS: BP 127/77 mmHg Pulse 65 Temp(Src) 36.6 ??C (97.8 ??F) (Oral) Resp 16 SpO2 100% GENERAL: Well developed, well nourished. No acute distress. Alert and cooperative. HEAD: Normocephalic. EYES: Conjunctiva and sclera clear. Pupils equal and round. No eyelid erythema or edema. EARS: External auditory canals clear. Right tympanic membrane: Translucent with normal bony landmarks, without erythema or bulging. Left tympanic membrane: erythematous, dull, purulent middle ear fluid. No evidence of TM perforation. NOSE: No nasal discharge. THROAT: Mucous membranes are moist. Posterior oropharynx moderately erythematous with exudates, with2+ tonsillar edema. Uvula midline. NECK: Supple. Slightly tender anterior cervical lymphadenopathy. CARDIAC: Regular rate and rhythm. No murmurs. LUNGS: Clear to auscultation bilaterally. No rales, rhonchi, or wheezing. ABDOMEN: Soft. Non-tender. No hepatosplenomegaly. SKIN: Normal color without lesions. LABORATORY TESTING: Rapid strep test: NEGATIVE. Assessment IMPRESSION: 1. Sore throat 2. Exposure to strep throat 3. Acute suppurative otitis media of left ear Plan Amoxicillin given for otitis media. Clinical presentation is suggestive of strep pharyngitis. Possible contagiousness discussed. He was advised to use Tylenol or Ibuprofen for pain or fever. Salt watergargles, tea with lemon, and OTC lozenges (Cepacol, Cloraseptic, Sucrets) may also provide symptomatic relief. The patient was instructed to rest, increased fluid intake, and use symptomatic therapy as needed. We discussed symptoms that would warrant urgent return to clinic including persistent or recurrent fever, conjunctival injection, rashes, drooling, stridor, difficulty breathing, or non-improving symptoms. The patient/parent was agreeable to this plan. Questions were answered. The patient was discharged in stable condition. Will contact by telephone if throat culture is positive. Discharge Medications: Medications Prescribed this Visit Disp Refills Start End amoxicillin (AMOXIL) 500 MG capsule 30 Cap 0 05/15/2016 05/25/2016 Take 1 Cap by mouth three times a day for 10 days. Oral Marcia Tyler PA-C 05/15/2016 documented in this encounter Plan of Treatment Not on filedocumented as of this encounter Procedures Procedure Name Priority Date/Time Associated Diagnosis Comme nts BETA STREP RESP STAT 05/15/2016 6:35 PM Exposure to strep R esults for this CULT CDT throat procedure are in Acute suppurative the result s otitis media of left section . ear GROUP A STREP STAT 05/15/2016 6:29 PM Sore throat Results for this ANTIGEN SCREEN CDT procedure are in the results section. documented in this encounter Results Strep Screen Culture Throat (CSS) (05/15/2016 6:35 PM CDT) [facility] gist Method Time Signature Source Throat PN SOFT Site PN SOFT Strep Screen No Group A PN SOFT Streptococcus Isolated Specimen (Source) Anatomical Collection Method Collection Time Re ceived Time Location / / Volume Laterality 05/15/2016 6:35 PM CDT Narrative PN SOFT - 05/17/2016 5:36 AM CDT Performed at [facility], [address] [place] [id number], CLIA Number [id number] Marcia Tyler PA-C LAB_1 Performing Organization Address City/State/ZIP Code Phon e Number PN SOFT [address] [place] [address] Rapid Strep Group A Waived (RSAW) (05/15/2016 6:29 PM CDT) athologist Signature Strep A Negative Negative PN SOFT Antigen Strep A Source THROA: PN SOFT Specimen Anatomical Collection Method Collection Time Receive d Time (Source) Location / / Volume Laterality 05/15/2016 6:29 PM 7 6:53 CDT PM CDT Narrative PN SOFT - 05/15/2016 6:54 PM CDT Performed at [facility], [address] [place] [address] CLIA number [id number] [facility]bal[facility] LAB_1 Performing Organization Address City/State/ZIP Code Phon e Number PN SOFT [address] [place] [address] [phone] documented in this encounter Visit Diagnoses Diagnosis Sore throat - Primary Acute pharyngitis Exposure to strep throat Contact with or exposure to other commun icable diseases Acute suppurative otitis media of left e ar Triage Assessment Note - Yanique Bender RN - 05/15/2016 6:14 PM CDT Sore throat starting today, productive cough fatigue/malaise x3 days. Kids had strep/influenza A 1-2weeks ago. documented in this encounter Care Teams Post Production Assistant Relationship Specialty Start Date End Date Md Boateng MD PCP - General 10/18/12 [place] [address] documented as of this encounter
--- OUTSIDE RECORDS SUMMARY | 2021-12-07 20:32 | XMS_ITS | Encounter Summary ---
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 Pharyngitis Encounter Details Date Type Department Care Team Description 11/21/2018 [facility]; Care PA-C Allergic rhinitis, unspecified seasonali ty, unspecified trigger; [address] Acute sinusitis, recurrence not specifie d, [place] [id number] [phone] Social History Tobacco Use Types Packs/Day Years Used Date Smoking Tobacco: Every Day Cigarettes 1 4 Smokeless Tobacco: Never Comments: Smoking History Packs/day: Alcohol Use Standard [...] Reading Time Taken Comments Blood Pressure 119/72 11/21/2018 11:33 AM CDT Pulse 90 11/21/2018 11:33 AM CDT Temperature 36.7 ??C (98 ??F) 11/21/2018 11:33 AM CDT Respiratory Rate 12 11/21/2018 11:33 AM CDT Oxygen Saturation 99% 11/21/2018 11:33 AM CDT Inhaled Oxygen Concentration - - Weight - - Height - - Body Mass Index - - documented in this encounter Discharge Instructions Discharge InstructionsPrincess Parra PA-C - 11/21/2018 12:01 PM CDT Images from the original note were not included. Seasonal Allergies: Care Instructions Your Care Instructions Allergies occur when your body's defense system (immune system) overreacts to certain substances. The immune system treats a harmless substance as if it were a harmful germ or virus. Many things can cause this to happen. Examples include pollens, medicine, food, dust, animal dander, and mold. Your allergies are seasonal if you have symptoms just at certain times of the year. In that case, you are probably allergic to pollens from certain trees, grasses, or weeds. Allergies can be mild or severe. Bnda-ipz-vmdtmze allergy medicine may help with some symptoms. Readand follow all instructions on the label. Managing your allergies is an important part of staying healthy. Your doctor may suggest that you have tests to help find the cause of your allergies. When you know what things trigger your symptoms, you can avoid them. This can prevent allergy symptoms and other health problems. In some cases, immunotherapy might help. For this treatment, you get shots or use pills that have a small amount of certain allergens in them. Your body gets used to the allergen, so you react less to it over time. This kind of treatment may help prevent or reduce some allergy symptoms. Follow-up care is a freeman part of your treatment and safety. Be sure to make and go to all appointments, and call your doctor if you are having problems. It's also a good idea to know your test results and keep a list of the medicines you take. How can you care for yourself at home? ?? Be safe with medicines. Take your medicines exactly as prescribed. Call your doctor if you think you are having a problem with your medicine. ?? During your allergy season, keep windows closed. If you need to use air- conditioning, change or clean all filters every month. Take a shower and change your clothes after you have been outside. ?? Stay inside when pollen counts are high. Vacuum once or twice a week. Use a vacuum fur dry cleaner hand with aHEPA filter or a double-thickness filter. When should you call for help? Give an epinephrine shot if: ? You think you are having a severe allergic reaction. ?? After giving an epinephrine shot, call 911, even if you feel better. ?? Call 911 if: ? You have symptoms of a severe allergic reaction. These may include: ? Sudden raised, red areas (hives) all over your body. ? Swelling of the throat, mouth, lips, or tongue. ? Trouble breathing. ? Passing out (losing consciousness). Or you may feel very lightheaded or suddenly feel weak, confused, or restless. ? You have been given an epinephrine shot, even if you feel better. ?? Call your doctor now or seek immediate medical care if: ? You have symptoms of an allergic reaction, such as: ? A rash or hives (raised, red areas on the skin). ? Itching. ? Swelling. ? Belly pain, nausea, or vomiting. ?? Watch closely for changes in your health, and be sure to contact your doctor if: ? You do not get better as expected. Where can you learn more? 1. Go to https://[employer]T The[employer]rary or [employer]rary. 2. Enter J912 in the search box. Current as of: August 26, 2017 Content Version: 12.0 ?? [employer]. Care instructions adapted under license by your healthcare professional. If you have questions about a medical condition or this instruction, always ask your healthcare professional. [employer] disclaims any warranty or liability for your use of this information. Sinusitis: Care Instructions Your Care Instructions Sinusitis is an infection of the lining of the sinus cavities in your head. Sinusitis often follows a cold. It causes pain and pressure in your head and face. In most cases, sinusitis gets better on its own in 1 to 2 weeks. But some mild symptoms may last forseveral weeks. Sometimes antibiotics are needed. Follow-up care is a freeman part of your treatment and safety. Be sure to make and go to all appointments, and call your doctor if you are having problems. It's also a good idea to know your test results and keep a list of the medicines you take. How can you care for yourself at home? ?? Take an npks-ydv-jsbtfbz pain medicine, such as acetaminophen (Tylenol), ibuprofen (Advil, Motrin), or naproxen (Aleve). Read and follow all instructions on the label. ?? If the doctor prescribed antibiotics, take them as directed. Do not stop taking them just becauseyou feel better. You need to take the full course of antibiotics. ?? Be careful when taking vpxz-ilj-buksfln cold or flu medicines and Tylenol at the same time. Many of these medicines have acetaminophen, which is Tylenol. Read the labels to make sure that you are not taking more than the recommended dose. Too much acetaminophen (Tylenol) can be harmful. ?? Breathe warm, moist air from a steamy shower, a hot bath, or a sink filled with hot water. Avoid cold, dry air. Using a humidifier in your home may help. Follow the directions for cleaning the machine. ?? Use saline (saltwater) nasal washes to help keep your nasal passages open and wash out mucus and bacteria. You can buy saline nose drops at a grocery store or drugstore. Or you can make your own at home by adding 1 teaspoon of salt and 1 teaspoon of baking soda to 2 cups of distilled water. If you make your own, fill a bulb syringe with the solution, insert the tip into your nostril, and squeeze gently. Blow your nose. ?? Put a hot, wet towel or a warm gel pack on your face 3 or 4 times a day for 5 to 10 minutes each time. ?? Try a decongestant nasal spray like oxymetazoline (Afrin). Do not use it for more than 3 days in a row. Using it for more than 3 days can make your congestion worse. When should you call for help? Call your doctor now or seek immediate medical care if: ? You have new or worse swelling or redness in your face or around your eyes. ? You have a new or higher fever. ?? Watch closely for changes in your health, and be sure to contact your doctor if: ? You have new or worse facial pain. ? The mucus from your nose becomes thicker (like pus) or has new blood in it. ? You are not getting better as expected. Where can you learn more? 1. Go to https://[employer]rary or [employer]/S[employer]iKaaz. 2. Enter I933 in the search box. Current as of: December 20, 2017 Content Version: 12.0 ?? [id number] [employer]. Care instructions adapted under license by your healthcare professional. If you have questions about a medical condition or this instruction, always ask your healthcare professional. [employer] disclaims any warranty or liability for your use of this information. documented in this encounter Medications at Time of Discharge Medication Sig Dispensed Refills Start Date End Date ALBUterol sulfate HFA 108 Inhale 1-2 Puffs 1 Inhaler 0 11/01 (90 Base) MCG/ACT inhaler every 4 hours as needed for Shortness of Breath. amphetamine-dextroamphetam LW Comment:superintendent stations. 120 0 08/08/2010 ine (ADDERALL) 20 MG [...] mouth. 0 03/30/2013 (VICKS DAYQUIL COUGH OR) fluticasone propionate Place 2 Sprays into 16 g 0 11/01 (FLONASE) 50 MCG/ACT nasal both nostrils solution daily. LORazepam (AKA ATIVAN) 0.5 Take 1 tablet by 90 3 09/2009 MG tablet mouth 3 times daily as needed. LW Addl Instr:Indicated for: Anxiety ondansetron (ZOFRAN) 8 MG Take 1 tablet by 30 tablet 0 05/2012 tablet mouth every 8 hours as needed for Nausea or Vomiting. amoxicillin-clavulanate Take 1 Tablet by 14 Tablet 0 201811/28/2018 (AUGMENTIN) 875-125 mg per mouth two times a tablet day for 7 days. documented as of this encounter ED Notes Princess Parra PA-C - 11/21/2018 12:03 PM CDT SUBJECTIVE: Augustus Ramirez is a 38 y.o. male presents for sore throat, sinus pain, ear pain and allergy symptoms. Patient has spring and fall allergies. He has been taking Sudafed and Zyrtec this fall. He said he took Sudafed 3 times yesterday and no improvement. Over the past 7-10 days he has had sinus pain, right ear pain, sore throat and feeling of swollen glands in his neck. No fever. He also gets runny nose, postnasal drainage and sneezing from allergies. Past Medical History: Past Medical History: Diagnosis Date ??? Pain Back Thoracic 07/17/2005 ??? Pain Neck 07/17/2005 Family History: Family History Problem Relation Age of Onset ??? Cancer Father Smoking or Smoke Exposure: Social History Socioeconomic History ??? Marital status: Spouse name: Not on file ??? Number of children: Not on file ??? Years of education: Not on file ??? Highest education level: Not on file Occupational History ??? 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 Financial resource strain: Not on file ??? Food insecurity: Worry: Not on file Inability: Not on file ??? Transportation needs: Medical: Not on file Non-medical: Not on file Tobacco Use ??? Smoking status: Current Every Day Smoker Packs/day: 1.00 Years: 4.00 Pack years: 4.00 Types: Cigarettes ??? Smokeless tobacco: Never Used ??? Tobacco comment: Smoking History Packs/day: Substance and Sexual Activity ??? Alcohol use: Yes Comment: occasionally ??? Drug use: No ??? Sexual activity: Yes Partners: Female Lifestyle ??? Physical activity: Days per week: Not on file Minutes per session: Not on file ??? Stress: Not on file Relationships ??? Social connections: Talks on phone: Not on file Gets together: Not on file Attends gnosticist service: Not on file Active member of club or organization: Not on file Attends meetings of clubs or organizations: Not on file Relationship status: Not on file ??? Intimate partner violence: Fear of current or ex partner: Not on file Emotionally abused: Not on file Physically abused: Not on file Forced sexual activity: Not on file Other Topics Concern ??? Bike Helmet Not Asked ??? City Water Not Asked ??? Exercise Not Asked ??? Guns in home Not Asked ??? Seat Belt Not Asked ??? Special Diet Not Asked ??? 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 Adverse Drug Reactions: No Known Allergies. Medications: No current facility-administered medications for this encounter. Current Outpatient Medications Medication Sig Dispense Refill ??? ALBUterol sulfate HFA 108 (90 Base) MCG/ACT inhaler Inhale 1-2 Puffs every 4 hours as needed forShortness of Breath. 1 Inhaler 0 ??? amoxicillin-clavulanate (AUGMENTIN) 875-125 mg per tablet Take 1 Tablet by mouth two times a dayfor 7 days. 14 Tablet 0 ??? amphetamine-dextroamphetamine (ADDERALL) 20 MG tablet LW Comment:superintendent stations. LW Addl Instr:Take 1-2tabs bid Indicated for: Attention Deficit Disorder (Patient not taking: Reported on 11/21/2018) 120 ??? CELEXA 20MG ORAL TABS Take 1 tablet by mouth once a day (Patient not taking: No sig reported) 30prn ??? cetirizine (ZYRTEC) 10 MG tablet Take 10 mg by mouth daily (every 24 hours). ??? cyclobenzaprine (AKA FLEXERIL) 10 MG tablet Take 1 tablet by mouth 3 times daily as needed for Muscle spasms. (Patient not taking: Reported on 11/21/2018) 30 tablet 0 ??? Dextromethorphan HBr (VICKS DAYQUIL COUGH OR) Take by mouth. ??? fluticasone propionate (FLONASE) 50 MCG/ACT nasal solution Place 2 Sprays into both nostrils daily. 16 g 0 ??? ketoconazole (AKA NIZORAL) 2 % cream Apply topically daily (every 24 hours). 30 g 0 ??? LORazepam (AKA ATIVAN) 0.5 MG tablet Take 1 tablet by mouth 3 times daily as needed. LW Addl Instr:Indicated for: Anxiety (Patient not taking: Reported on 11/21/2018) 90 3 ??? ondansetron (ZOFRAN) 8 MG tablet Take 1 tablet by mouth every 8 hours as needed for Nausea or Vomiting. (Patient not taking: Reported on 11/21/2018) 30 tablet 0 OBJECTIVE: Vital Signs: BP 119/72 (BP Location: Left Arm, BP Cuff Size: Regular) Pulse 90 Temp 36.7 ??C (98??F) (Oral) Resp 12 SpO2 99% General: Well-appearing. Skin: no rashes Head: Normocephalic. Eyes: PERRLA, full EOM. External exams normal. Ears: Normal pinnae, canals, and TM's. Nose: Erythematous mucous membranes with some clear nasal drainage Throat: Moist mucous membranes without lesions, erythema, or exudate. Neck: Supple, without masses, lymphadenopathy or tenderness. Respiratory: Normal respiratory effort. Lungs initially had some mild expiratory wheezing but after patient coughed the wheezing cleared. Heart: RR without murmurs, rubs, or gallops. Results for orders placed or performed during the hospital encounter of 11/21/18 Rapid Strep Group A Waived (RSAW) Result Value Ref Range Group A Rapid Screen Negative Negative No results found. Medications - No data to display ?? Medical Decision Making: Nursing notes and vitals were reviewed. Past medical records were reviewed.I performed an exam of the patient as detailed above. Findings and the plan was explained to the patient. I fully addressed and answered all questions and concerns the patient had. xray independently read and reviewed by me today xray also independently read later by radiologist ASSESSMENT: 1. Sore throat 2. Allergic rhinitis, unspecified seasonality, unspecified trigger 3. Acute sinusitis, recurrence not specified, unspecified location PLAN: Medication List START taking these medications ALBUterol sulfate HFA 108 (90 Base) MCG/ACT inhaler Inhale 1-2 Puffs every 4 hours as needed for Shortness of Breath. amoxicillin-clavulanate 875-125 mg per tablet Commonly known as: AUGMENTIN Take 1 Tablet by mouth two times a day for 7 days. fluticasone propionate 50 MCG/ACT nasal solution Commonly known as: FLONASE Place 2 Sprays into both nostrils daily. ASK your doctor about these medications ADDERALL 20 MG tablet Generic drug: amphetamine-dextroamphetamine LW Comment:superintendent stations. LW Addl Instr:Take 1-2 tabs bid Indicated for: Attention Deficit Disorder CELEXA 20 MG tablet Generic drug: citalopram Take 1 tablet by mouth once a day cetirizine 10 MG tablet Commonly known as: ZyrTEC cyclobenzaprine 10 MG tablet Commonly known as: FLEXERIL Take 1 tablet by mouth 3 times daily as needed for Muscle spasms. ketoconazole 2 % cream Commonly known as: NIZORAL Apply topically daily (every 24 hours). LORazepam 0.5 MG tablet Commonly known as: ATIVAN Take 1 tablet by mouth 3 times daily as needed. LW Addl Instr:Indicated for: Anxiety ondansetron 8 MG tablet Commonly known as: ZOFRAN Take 1 tablet by mouth every 8 hours as needed for Nausea or Vomiting. VICKS DAYQUIL COUGH OR Where to Get Your Medications These medications were sent to [id number] - [place], [place] - [facility] [address] [facility] [address] [facility] [address] [facility] [id number] ?? ALBUterol sulfate HFA 108 (90 Base) MCG/ACT inhaler ?? amoxicillin-clavulanate 875-125 mg per tablet ?? fluticasone propionate 50 MCG/ACT nasal solution Discussed with patient he has allergic rhinitis with secondary sinusitis. He has had wheezing in thepast from seasonal allergies. Prescribed albuterol, Augmentin and Flonase. He will continue the Zyrtec and Sudafed as needed. Could also add nasal saline. Patient had some questions regarding some chronic intermittent ear pain which I recommended he be seen for at a future visit, perhaps ENT. Patient was discharged in stable condition. Recommended that patient be revaluated if any new or significantly worsening symptoms. Patient comfortable with plan. Follow up with urgent care as needed. This documentation was done by voice recognition software and may contain grammatical errors. documented in this encounter Plan of Treatment Not on filedocumented as of this encounter Procedures Procedure Name Priority Date/Time Associated Diagnosis Comme nts GROUP A STREP STAT 11/21/2018 11:34 AM Sore throat Results for this ANTIGEN SCREEN CDT procedure are in the results section. documented in this encounter Results Rapid Strep Group A Waived (RSAW) (11/21/2018 11:34 AM CDT) Analysis Performed At Patho logist Time Signature Group A Rapid Negative Negative 11/21/2018 [facility] 12:03 PM CDT LABORATORY Specimen Anatomical Collection Method Collection Time Receive d Time (Source) Location / / Volume Laterality Swab (Source THROAT SWAB / Non-blood 11/21/2018 11:34 11/21/2018 Required) Unknown Collection / AM CDT 11:46 AM CDT Unknown Narrative [facility] - 11/21/2018 12:03 PM CDT Order a Group A Strep Respiratory cultur e if the patient is OVER 18 and has had CLOSE contact with strep, hx of rheumatic feve r or post-strep glomerulonephritis, or is immunocompromised. [facility] Performing Organization Address City/State/ZIP Code Phon e Number [facility] [address] [place] [address] documented in this encounter Visit Diagnoses Diagnosis Sore throat Acute pharyngitis Allergic rhinitis, unspecified seasonali ty, unspecified trigger Acute sinusitis, recurrence not specifie d, unspecified location Triage Assessment Note - Nicole Nicholas RN - 11/21/2018 11:32 AM CDT Pt here for nasal congestion and sore throat X 1.5 days. documented in this encounter Care Teams Process Plant Operator Relationship Specialty Start Date End Date Md Kilo, PCP - General 10/18/12 [place] [address] documented as of this encounter
--- OUTSIDE RECORDS SUMMARY | 2021-12-07 20:32 | XMS_ITS | Encounter Summary ---
:1980 Author Organization [facility] Address [address], [place] [address] Care Team Providers Name Role Phone Md NATHANIEL Boateng Primary Care Provider Reason for Visit Reason Comments Follow-up Encounter Details Date Type Department Care Team Description 05/26/2013 Office Visit Specialty [facility] [address] ervicalgia (Primary Neurosurgery MD Ed Dx) [address] [place] [address] Social History Tobacco Use Types Packs/Day Years Used Date Smoking Tobacco: Never Alcohol Use Standard Drinks/Week Comments Not Asked 0 (1 standard drink = 0.6 oz pure alcoho l) Sex Assigned at Date Recorded Not on file documented as of this encounter Last Filed Vital Signs Vital Sign Reading Time Taken Comments Blood Pressure 116/62 05/26/2013 3:36 PM CDT Pulse 67 05/26/2013 3:36 PM CDT Temperature - - Respiratory Rate 16 05/26/2013 3:36 PM CDT Oxygen Saturation - - Inhaled Oxygen Concentration - - Weight - - Height - - Body Mass Index - - documented in this encounter Progress Notes Vern Garcia MD - 05/27/2013 10:28 AM CDT this note has been dictated Vern Garcia MD - 05/27/2013 10:23 AM CDT Progress Notes signed by JOSEY Cunha at 05/27/13 1218 Author: JOSEY Cunha Service: (none) Author Type: Physician Filed: 05/27/13 1218 Note Time: 05/27/13 1155 Status: Signed [facility]: JOSEY Cunha (Physician) NAME: LORA STEWART MR#: [id number] CSN: [id number] AUTHENTICATING CLINICIAN: JOSEY Cunha CONFIRM #: [id number] LOC: 223 CLINIC PROGRESS NOTE DATE OF VISIT: 05/26/2013 : 1980 Mr. Stewart is a pleasant 33-year-old gentleman who underwent cervical arthroplasty in July of 2011. He has done well from a surgical standpoint. He does not have any signs or symptoms of radiculopathy or myelopathy. He has been having issues with axial neck pain. He has been continuing to smoke. More r ecently, I think he has started to quit now and get back to a regular exercise regimen. I counseled the patient about the importance of quitting smoking and its effects on the spine, and he seems to understand that. Seems to be motivated to stay quit from cigarettes. He will come back and see us in the future if necessary. I have reviewed his x-rays done today which show the implants are in good position with stable alignment. PRB:MEDQ C: CONFIRM #: [id number] documented in this encounter Plan of Treatment Not on filedocumented as of this encounter Visit Diagnoses Diagnosis Cervicalgia - Primary documented in this encounter Care Teams Harness Brusher Relationship Specialty Start Date End Date Md Boateng MD PCP - General 10/18/12 [place] [address] documented as of this encounter
--- OUTSIDE RECORDS SUMMARY | 2021-12-07 20:32 | XMS_ITS | Clinical Summary ---
:1980 Author Organization [facility] Address [address] [place] [address] Care Team Providers Name Role Phone Md NATHANIEL Boateng Primary Care Provider Source Comments You are receiving this document as you are listed as the primary care provider,follow-up provider, or the patient has been referred to you for consultation.This is in compliance with the Medicare and Medicaid EHR Incentive Program,which states Providers who transition their patient to another setting of careor provider of care or refers their patient to another provider of care shouldprovide summarycare record for each transition of care or referral. [facility] Allergies No known active allergies Medications Medication Sig Dispensed Refills Start Date End Date Status CELEXA 20MG ORAL TABS Take 1 tablet by 30 0 02/12/2004 Active mouth once a day Additional Information Patient not taking. Reported on 11/21/2018 LORazepam (AKA ATIVAN) 0.5 Take 1 tablet by mouth 3 times 90 3 01/07/2010 Active MG tablet daily as needed. LW Addl Instr:Indicated for: Anxiety Additional Information Patient not taking. 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 120 0 08/08/2010 Active (ADDERALL) 20 MG tablet LW Addl Instr:Take 1-2 tabs bid Indicated for: Attention Deficit Disorder Additional Information Patient not taking. Reported on 11/21/2018 ketoconazole (AKA NIZORAL) 2 % Apply topically daily 30 g 0 07/06/2012 Active creamIndications: Rash (every 24 hours). cyclobenzaprine (AKA FLEXERIL) Take 1 tablet by mouth 30 tablet 0 10/19/2012 Active 10 MG tabletIndications: 3 times daily as Cervicalgia needed for Muscle spasms. Additional Information Patient not taking. Reported on 11/21/2018 ondansetron (ZOFRAN) 8 MG Take 1 tablet by mouth 30 tablet 0 1 03/05/2012 Active tablet every 8 hours as needed for Nausea or Vomiting. Additional Information Patient not taking. Reported on 11/21/2018 Dextromethorphan HBr (VICKS Take by mouth. 0 014 Active DAYQUIL COUGH OR) cetirizine (ZYRTEC) 10 MG Take 10 mg by mouth 0 09/30 Active tablet daily (every 24 hours). fluticasone propionate Place 2 Sprays into 16 g 0 019 Active (FLONASE) 50 MCG/ACT nasal both nostrils daily. solution ALBUterol sulfate HFA 108 (90 Inhale 1-2 Puffs every 1 Inhaler 0 11/21/2018 Active Base) MCG/ACT inhaler 4 hours as needed for Shortness of Breath. Active Problems Problem Noted Date Degenerative disc disease, cervical 08/15/2011 Pain in thoracic spine 07/17/2005 Overview: LW Onset: [id number] ; Pain Back Thoracic Cervicalgia 07/17/2005 Overview: LW Onset: [id number] ; Pain Neck Backache 02/12/2004 Overview: Epic Depressive disorder 02/12/2004 Overview: Depressive disorder, not elsewhere class ified ([facility]) Immunizations Name Administration Dates Next Due Flu Vac Preserv Free (3+yrs) 12/04/2007 TDAP (ADACEL) 07/08/2011 Td 04/30/2000 Family History Medical History Relation Name Comments Cancer Father Relation Name Status Comments Father Alive Mother Alive Social History Tobacco Use Types Packs/Day Years [...] Assigned at Date Recorded Not on file Last Filed Vital Signs Vital Sign [place] Time Taken Comments Blood Pressure 119/72 11/21/2018 11:33 AM CDT Pulse 90 11/21/2018 11:33 AM CDT Temperature 36.7 ??C (98 ??F) 11/21/2018 11:33 AM CDT Respiratory Rate 12 11/21/2018 11:33 AM CDT Oxygen Saturation 99% 11/21/2018 11:33 AM CDT Inhaled Oxygen Concentration - - Weight 82.7 kg (182 lb 4 oz) 10/19/2012 11:18 AM CDT Height 184.8 cm (6' 0.76) 07/08/2011 2:27 PM CDT Body Mass Index 24.21 07/08/2011 2:27 PM CDT Plan of Treatment Health Maintenance Due Date Last Done Comments HepB (1) 1980 COVID-19 Vaccine (#1) 1980 Pneumococcal (1 - PCV) 1986 Adult Preventive Visit 1998 Cholesterol 08/09/2015 08/08/2010, 03/21/2008, 02/10/2008, Additional history exists DTaP/Tdap/Td (2 - Tdap) 07/07/2021 07/08/2011, 04/30/2000 Influenza (#1) 2021 12/04/2007 Zoster/Shingles (1 of 2) 2030 HIV Screening (Preventive Completed 08/07/2010, 12/14/2007 , Services) 11/17/2005, Additional history exists Hep C Screening (Preventive Completed 08/07/2010 Services) HPV Vaccine Aged Out No longer eligib le based on patient 's age to complete this topic HepA Aged Out No longer eligib le based on patient 's age to complete this topic Hib Aged Out No longer eligib le based on patient 's age to complete this topic IPV (Polio) Aged Out No longer eligib le based on patient 's age to complete this topic MCV4 Aged Out No longer eligib le based on patient 's age to complete this topic Insurance Payer Benefit Subscriber ID Effective Phone Address Type Plan / Dates Group STATE [facility] 2003-Pre [phone] [address] Workers Comp WC [facility] sent [phone] [place] [id number] [facility] [id number] 2017-Pre [phone] [address] Commercial sent [phone] [place] [address] Augustus Ramirez Personal/Famil Self 1980 [address] (Home) [place] [id number] Augustus Ramirez Personal/Famil Self [address] y (Home) [place] [address] Augustus Ramirez Workers Comp Self [id number] (Home) [place] [id number] Advance Directives Latest Code Status on File Code Status Date Activated Date Inactivated Comments 05/20/2003 10:20 AM 05/20/2003 11:20 AM Care Teams Steel Post Installer Relationship Specialty Start Date End Date Md Boateng MD PCP - General 10/18/12 [place] [address]
--- OUTSIDE RECORDS SUMMARY | 2021-12-07 20:33 | XMS_ITS | Encounter Summary ---
:1980 [facility] Address [address] [place] [address] Care Team Providers Name Role Phone Md NATHANIEL Boateng Primary Care Provider Reason for Visit Reason Comments Headache Nausea Encounter Details Date Type Department Care Team Description 01/03/2013 Hospital Encounter [facility] Precious Pearson , Acute sinusitis, Care MD unspecified [id number] Miranda (Primary Dx) [place] [address] [phone] Social History Tobacco Use Types Packs/Day Years Used Date Smoking Tobacco: Never Alcohol Use Standard Drinks/Week Comments Not Asked 0 (1 standard drink = 0.6 oz pure alcoho l) Sex Assigned at Date Recorded Not on file documented as of this encounter Last Filed Vital Signs Vital Sign Reading Time Taken Comments Blood Pressure 115/67 01/03/2013 1:04 PM DIRECTOR OF NEUROLOGY Pulse 80 01/03/2013 1:04 PM DIRECTOR OF NEUROLOGY Temperature 36.4 ??C (97.5 ??F) 01/03/2013 1:04 PM DIRECTOR OF NEUROLOGY Respiratory Rate - - Oxygen Saturation - - Inhaled Oxygen Concentration - - Weight - - Height - - Body Mass Index - - documented in this encounter Medications at Time of Discharge Medication Sig Dispensed Refills Start Date End Date amphetamine-dextroampheta 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 120 0 0 08/08/2010 mine (ADDERALL) 20 MG LW Addl Instr:Take tablet 1-2 tabs bid Indicated for: Attention Deficit Disorder CELEXA 20MG ORAL TABS Take 1 tablet by 30 0 02/12/20 04 mouth once a day cyclobenzaprine (AKA Take 1 tablet by 30 tablet 0 3 FLEXERIL) 10 MG mouth 3 times daily tabletIndications: as needed for Muscle Cervicalgia spasms. ketoconazole (AKA Apply topically 30 g 0 07/06/2012 NIZORAL) 2 % daily (every 24 creamIndications: Rash hours). LORazepam (AKA ATIVAN) Take 1 tablet by 90 3 010 0.5 MG tablet mouth 3 times daily as needed. LW Addl Instr:Indicated for: Anxiety ondansetron (ZOFRAN) 8 MG Take 1 tablet by 30 tablet 0 05/2012 tablet mouth every 8 hours as needed for Nausea or Vomiting. amoxicillin-clavulanate Take 1 tablet by 20 tablet 0 201201/13/2013 (aka AUGMENTIN) tablet mouth 2 times daily for 10 days. fill 10 day not previously sent 7 day ondansetron (aka ZOFRAN) Take 1 tablet by 30 tablet 0 01/0309/07/2015 tablet mouth every 8 hours as needed for Nausea or Vomiting. documented as of this encounter ED Notes Precious Pearson MD - 01/03/2013 2:14 PM CST ED Provider Notes signed by Precious Pearson MD at 01/17/13 9144 Author: Precious Pearson MD Service: (none) Author Type: Physician Filed: 01/17/13 1545 Note Time: 01/03/13 7530 Status: Signed Track Moving Machine Operator: Precious Pearson MD (Physician) NAME: LORA STEWART MR#: [id number] CSN: [id number] AUTHENTICATING CLINICIAN: Precious Pearson MD CONFIRM #: [id number] LOC: 520 URGENT CARE PROGRESS NOTE DATE OF VISIT: 01/03/2013 : 1980 Lora is a 32-year-old who comes in with concerns of feeling ill for the past 2 weeks or so. He describes initially having a URI and then developing chest congestion that has been productive. He has been having earaches. He just feels like he is sore behind his ears, also on his frontal sinuses. He has been feeling somewhat nauseous. He has been sore. His neck has been sore, but not stiff. He feels run down. He has not had any shortness of breath, pleuritic pain, fevers, sometimes feels chilled. Both of his kids have had URIs lately and one daughter was treated with antibiotics for her cough, and she has resolved. He also feels nauseous when he eats, but no abdominal pain. MEDICATIONS: Reviewed. ALLERGIES: Reviewed. PROBLEM LIST: Reviewed. OBJECTIVE: Non ill-appearing 32-year-old here with his 2 young children. HEENT: Pupils equal, round, reactive to light. No conjunctival injection or drainage. Tympanic membranes are normal. Oropharynx with minimal erythema, no exudate. He does have some frontal sinus tenderness, although he feels like he is sore behind the mastoids, the mastoids are not specifically tendertoday. There is no fluctuance or swelling. Nares are normal. NECK: Supple, without rigidity. HEART: Regular rate and rhythm. LUNGS: Clear. ASSESSMENT: 1. Frontal sinusitis. 2. Nausea, suspect this is related to postnasal drip. PLAN: Treated today with Augmentin 875 mg p.o. twice daily for 10 days, and Zofran. Recommend to follow upif not improved in the next 3-4 days. EKH:MEDQ C: CONFIRM #: [id number] CTOR OF NEUROLOGY documented in this encounter Miscellaneous Notes Medication History - Shorty Abbott MD - 01/03/2013 2:11 PM CST INPATIENT MEDS Encounter Date: 01/03/13 amoxicillin-clavulanate (AUGMENTIN) 875-125 mg per tablet Start Date:01/03/13, End Date:01/13/13, Frequency:2 TIMES DAILY *No Administrations Recorded ondansetron (ZOFRAN) 8 mg tablet Start Date:01/03/13, End Date:-, Frequency:EVERY 8 HOURS PRN *No Administrations Recorded amoxicillin-clavulanate (AUGMENTIN) 875-125 mg per tablet Start Date:01/03/13, End Date:01/03/13, Frequency:2 TIMES DAILY *No Administrations Recorded CTOR OF NEUROLOGY documented in this encounter Plan of Treatment Not on filedocumented as of this encounter Visit Diagnoses Diagnosis Acute sinusitis, unspecified - Primary Triage Assessment Note - Jeane Pepper LPN - 01/03/2013 1:03 PM DIRECTOR OF NEUROLOGY Headache x 2 weeks off and on. Feels nauseated. Says it does not feel normal. documented in this encounter Care Teams Mortgage Branch Manager Relationship Specialty Start Date End Date Md Boateng MD PCP - General 10/18/12 [place] [address] documented as of this encounter
--- OUTSIDE RECORDS SUMMARY | 2021-12-07 20:33 | XMS_ITS | Encounter Summary ---
:1980 Author [facility] Address [address] [place] [address] Care Team Providers Name Role Phone Robin Duncan MD Primary Care Provider Reason for Visit Reason Comments Wound Check Encounter Details Date Type Department Care Team Description 07/23/2011 Office Visit [facility] 39[facility] Nurse, [id number] [facility] rvicalgia (Primary Neurosurgery Dx) [address] [place] [address] Social History Tobacco Use Types Packs/Day Years Used Date Smoking Tobacco: Never Alcohol Use Standard Drinks/Week Comments Not Asked 0 (1 standard drink = 0.6 oz pure alcoho l) Sex Assigned at Date Recorded Not on file documented as of this encounter Progress Notes Dennise Velez - 07/23/2011 10:35 AM CDT Augustus is still smoking and did advise him to quit smoking. Dennise Velez - 07/23/2011 10:33 AM CDT Augustus is in for his post op incision check. He reports muscular type pain in his shoulders and neck which he does take percocet for. Is requesting a refill of percocet - prescription was given to him while in clinic. States he has noticed twice a tingling sensation down bharath upper extremities when he overdid it. Overall feels the pain has improved since surgery. Denies any problems with bowel or bladder. Encouraged the use of a stool softener and increasing fiber intake while on percocet. Denies any fevers or drainage from incision. Incision edges well approximated. No signs or symptoms of infectionnoted. Advised him on restrictions again and follow up appt discussed with patient. Aftercare instruc tions discussed. Patient to call with any questions or concerns. documented in this encounter Plan of Treatment Not on filedocumented as of this encounter Visit Diagnoses Diagnosis Cervicalgia - Primary documented in this encounter Care Teams Supervisor Customer Records Division Relationship Specialty Start Date End Date Robin Duncan MD PCP - General 06/03/10 10/17/12 [address] [address] [place] [address] documented as of this encounter
--- OUTSIDE RECORDS SUMMARY | 2021-12-07 20:33 | XMS_ITS | Encounter Summary ---
:1980 [facility] Address [address] [place] [address] Care Team Providers Name Role Phone Robin Duncan MD Primary Care Provider Encounter Details Date Type Department Care Team Description 06/11/2011 [facility] [address] [place] [address] Social History Tobacco Use Types Packs/Day Years Used Date Smoking Tobacco: Never Alcohol Use Standard Drinks/Week Comments Not Asked 0 (1 standard drink = 0.6 oz pure alcoho l) Sex Assigned at Date Recorded Not on file documented as of this encounter Plan of Treatment Not on filedocumented as of this encounter Visit Diagnoses Not on filedocumented in this encounter Care Teams Fourchette Sewer Relationship Specialty Start Date End Date Robin Duncan MD PCP - General 06/03/10 10/17/12 [address] [address] [place] [address] documented as of this encounter
--- OUTSIDE RECORDS SUMMARY | 2021-12-07 20:33 | XMS_ITS | Encounter Summary ---
:1980 Author Organization [facility] Address [address] [place] [address] Care Team Providers Name Role Phone Md NATHANIEL Boateng Primary Care Provider Reason for Visit Reason Comments Neck Pain Encounter Details Date Type Department Care Team Description 10/19/2012 Office Visit [facility] Nnamdi Vicente MD Cervicalgia (Primary Medicine [address] [facility] Dx) [address] [place] [address] [phone] (Wo rk) Social History Tobacco Use Types Packs/Day Years Used Date Smoking Tobacco: Never Alcohol Use Standard Drinks/Week Comments Not Asked 0 (1 standard drink = 0.6 oz pure alcoho l) Sex Assigned at Date Recorded Not on file documented as of this encounter Last Filed Vital Signs Vital Sign [place] Time Taken Comments Blood Pressure 124/62 10/19/2012 11:18 AM CDT Pulse 90 10/19/2012 11:18 AM CDT Temperature - - Respiratory Rate - - Oxygen Saturation - - Inhaled Oxygen Concentration - - Weight 82.7 kg (182 lb 4 oz) 10/19/2012 11:18 AM CDT Height - - Body Mass Index 24.21 07/08/2011 2:27 PM CDT documented in this encounter Patient Instructions Patient InstructionsNnamdi Vicente MD - 10/19/2012 11:51 AM CDT Please call Physical Therapy at [phone] to schedule your appointment. documented in this encounter Progress Notes Nnamdi Vicente MD - 10/19/2012 12:15 PM CDT Progress Notes signed by Nnamdi Vicente MD at 10/19/12 1616 Author: Nnamdi Vicente MD Service: (none) Author Type: Physician Filed: 10/19/12 1616 Note Time: 10/19/12 1530 Status: Signed Recreation Clerk: Nnamdi Vicente MD (Physician) NAME: LORA STEWART MR#: [id number] CSN: [id number] AUTHENTICATING CLINICIAN: Nnamdi Vicente MD CONFIRM #: [id number] LOC: 502 CLINIC PROGRESS NOTE DATE OF VISIT: 10/19/2012 : 1980 CHIEF COMPLAINT: Neck pain. HPI: This 32-year-old male presents today with about 1 month history now of posterior neck pain. It radiates up into the occipital region of the scalp as well as along the trapezius and upper back muscles bilaterally. Occasionally with this when it is particularly bad off a little bit of tingling down the left arm. There is no preceding trauma. He is status post L1 cervical arthroplasty in 2011. At that time he presented with neck pain but also radicular pain into both upper extremities as well as paresthesias. Due to financial issues and loss of job he was unable to fully complete the postoperative physical therapy that was recommended. The pain currently seems to be more muscular in nature. OBJECTIVE: Pulse 90, blood pressure 124/62, weight 182.4 pounds. GENERAL: This 32-year-old male appears well. He is breathing comfortably. He has normal strength proximally and distally in both upper extremities. Reflexes are intact. He denies any numbness or tingling at this time. He points to the posterior neck bilaterally and into the occipital regions bilaterally as well as across the trapezius musculature and upper thoracic back musculature as the area the areas of involvement. ASSESSMENT: Muscular neck pain, status post previous L1 cervical arthroplasty 2011. PLAN: I agree with the patient that this certainly sounds muscular in nature. At this time he has no radicular symptoms and no paresthesias or sense of weakness. His exam is unremarkable. I would recommend physical therapy. I gave him a short course of Flexeril to use as needed, as well, but I indicated this was a temporary treatment and not a long-term treatment. Physical therapy will be the mainstay of treatment. He should follow up if he notes any significant changes or new or worsening symptoms. CJM:MEDTrae C: CONFIRM #: [id number] documented in this encounter Plan of Treatment Not on filedocumented as of this encounter Visit Diagnoses Diagnosis Cervicalgia - Primary documented in this encounter Care Teams Mortuary Beautician Relationship Specialty Start Date End Date Md Boateng MD PCP - General 10/18/12 [place] [address] documented as of this encounter
--- OUTSIDE RECORDS SUMMARY | 2021-12-07 20:33 | XMS_ITS | Encounter Summary ---
:1980 Author Organization [facility] Address [address] [place] [address] Care Team Providers Name Role Phone Robin Duncan MD Primary Care Provider Reason for Visit Reason Comments Neck Pain Encounter Details Date Type Department Care Team Description 06/09/2011 Hospital Encounter [facility] Belkis Mendez , Neck pain, acute Care [address] [place] [address] Social History Tobacco Use Types Packs/Day Years Used Date Smoking Tobacco: Never Alcohol Use Standard Drinks/Week Comments Not Asked 0 (1 standard drink = 0.6 oz pure alcoho l) Sex Assigned at Date Recorded Not on file documented as of this encounter Last Filed Vital Signs Vital Sign Reading Time Taken Comments Blood Pressure 105/60 06/09/2011 8:46 AM CDT Pulse 72 06/09/2011 8:46 AM CDT Temperature 36.3 ??C (97.3 ??F) 06/09/2011 8:46 AM CDT Respiratory Rate 12 06/09/2011 8:46 AM CDT Oxygen Saturation - - Inhaled Oxygen Concentration - - Weight - - Height - - Body Mass Index - - documented in this encounter Medications at Time of Discharge Medication Sig Dispensed Refills Start Date End Date amphetamine-dextroamphetam 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 120 0 08/08/2010 ine (ADDERALL) 20 MG LW Addl Instr:Take tablet 1-2 tabs bid Indicated for: Attention Deficit Disorder CELEXA 20MG ORAL TABS Take 1 tablet by 30 0 02/12/20 04 mouth once a day LORazepam (AKA ATIVAN) 0.5 Take 1 tablet by 90 3 09/2009 MG tablet mouth 3 times daily as needed. LW Addl Instr:Indicated for: Anxiety cyclobenzaprine (aka Take 0.5-1 tablets 15 tablet 0 012 06/16/2011 FLEXERIL) tablet by mouth 3 times daily as needed for Muscle spasms for 7 days. fexofenadine/pseudoephedri Take 1 tablet by 60 3 10/16/2011 ne (ANI-D ALLERGY & mouth 2 times CONGESTION) 60-120 MG daily. LW Addl tablet Instr:Indicated for: Allergies fluticasone (aka FLONASE) Place 2 sprays into 16 g 0 0 03/09/2011 10/16/2011 50 MCG/ACT nasal spray each nostril daily (every 24 hours). Dose is for each nostril. oxyCODONE-acetaminophen Take 1-2 tablets by 12 tablet 0 11/201107/10/2011 (aka PERCOCET) 5-325 MG mouth every 4 hours tablet as needed for Pain. Maximum 12 tablets/24 hours Indications: PAIN documented as of this encounter Progress Notes Belkis Mendez MD - 06/09/2011 12:39 PM CDT Progress Notes signed by Belkis Mendez MD at 06/11/11836 Author: Belkis Mendez MD Service: (none) Author Type: Physician Filed: 06/11/11836 Note Time: 06/09/11 1239 Status: Signed Chief Technician X Ray: Belkis Mendez MD (Physician) NAME: LORA STEWART MR#: [id number] CSN: [id number] AUTHENTICATING CLINICIAN: Belkis Mendez MD CONFIRM #: [id number] LOC: 520 CLINIC PROGRESS NOTE DATE OF VISIT: 06/09/2011 : 1980 CHIEF COMPLAINT: Neck pain. HISTORY OF PRESENT ILLNESS: This is a 31-year-old male who presents with complaints of 2 days of neck pain. He since says he simply was rolling over in bed, kind of half awake and still half asleep, and when her turned his head and rolled over, he felt a sudden pain in his neck. He says he has hardly moved his head from side to side due to the pain. He says the pain is more at the base of the neck and on both sides and goes into the back of his shoulders. He used a muscle relaxant once last evening that was left over without much change in the pain. He has also been taking some ibuprofen. He has no pain radiating down his arms or legs. No numbness or tingling in his legs. No other injury to the neck. No fevers. No headache. PHYSICAL EXAM: VITAL SIGNS: Reviewed in Epic. GENERAL: He is alert and oriented. EYES: Pupils equal, round, reactive to light. ENT: MOUTH: Oropharynx clear. Moist mucous membranes. MUSCULOSKELETAL: He has some tenderness on the approximately C6-C7 and also on the paraspinal regions bilaterally extending into the upper trapezius, limited range of motion secondary to pain. NEURO: 5/5 strength with triceps and biceps testing, 5/5 lawyer real estate strength. Sensation is intact in upper extremities and equal bilaterally. SKIN: There is no erythema or warmth overlying the neck or back. IMPRESSION: Acute neck pain. PLAN: At this point this is more suggestive of musculoskeletal strain, although I cannot rule out a herniated disk, but he does not have any radicular symptoms. Also considered spinal epidural abscess, although it does seem that there was a mechanism that triggered this pain suddenly. I explained to him a disk would be appreciated on an MRI, and this x-ray would be of limited benefit at this time given that a fracture would not be suspected with this mechanism of injury. He was given a prescription for Percocet and Flexeril, advised no driving, drinking alcohol or operating machinery when taking these medications. I did put in a con2 consult for physical therapy as they feel he would benefit from some treatment. I explained to him if he developed worsening pain, pain radiating down his arms or legs and weakness in his arms or legs, he should be seen immediately. I also emphasized followup with primary care provider later this week to assess progress. 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 KSG:ANGELA C: CONFIRM #: [id number] documented in this encounter Miscellaneous Notes Medication History - Shorty Abbott MD - 06/09/2011 9:59 AM CDT INPATIENT MEDS Encounter Date: 06/09/11 cyclobenzaprine (FLEXERIL) 10 mg tablet Start Date:06/09/11, End Date:06/16/11, Frequency:3 TIMES DAILY PRN *No Administrations Recorded oxyCODONE-acetaminophen (PERCOCET) 5-325 mg per tablet Start Date:06/09/11, End Date:07/10/11, Frequency:EVERY 4 HOURS PRN *No Administrations Recorded Letter - 06/09/2011 12:00 AM CDT Return to Work/School Date: 06/09/2011 To Whom It May Concern Lora Stewart . is a patient at [facility]. [] Should take medications as directed on prescription, administered by school personnel [] Was under our care. [x] Was seen in my office for an illness on the above date. [] Was seen in my office for a physical exam on the above date. [] Is able to return to sports / physical education as of: Exclusions: [] Should refrain from flying because of illness. [] Called for advice concerning an illness and missed: [] Work [] School From To [] Other: Comments: Please excuse from wok 06/08-06/10 for medical reason. Signature of / RN URES EDITOR documented in this encounter Plan of Treatment Not on filedocumented as of this encounter Visit Diagnoses Diagnosis Neck pain, acute Cervicalgia documented in this encounter Care Teams Product Representative Relationship Specialty Start Date End Date Robin Duncan MD PCP - General 06/03/10 10/17/12 [id number] [id number] documented as of this encounter
--- OUTSIDE RECORDS SUMMARY | 2021-12-07 20:33 | XMS_ITS | Encounter Summary ---
:1980 Author Organization [employer] Address [address] [address] Care Team Providers Name Role Phone Robin Duncan MD Primary Care Provider Reason for Visit Reason Comments Follow-up Encounter Details Date Type Department Care Team Description 09/25/2011 Office Visit Specialty [facility] Mary Ann Luna; Neurosurgery TANYA Bedoya Degenerative disc disease, c ervical [address] [place] [address] Social History Tobacco Use Types Packs/Day Years Used Date Smoking Tobacco: Never Alcohol Use Standard Drinks/Week Comments Not Asked 0 (1 standard drink = 0.6 oz pure alcoho l) Sex Assigned at Date Recorded Not on file documented as of this encounter Last Filed Vital Signs Vital Sign Reading Time Taken Comments Blood Pressure 113/63 09/25/2011 9:14 AM CDT Pulse 77 09/25/2011 9:14 AM CDT Temperature 36.7 ??C (98.1 ??F) 09/25/2011 9:14 AM CDT Respiratory Rate 20 09/25/2011 9:14 AM CDT Oxygen Saturation - - Inhaled Oxygen Concentration - - Weight - - Height - - Body Mass Index - - documented in this encounter Progress Notes Elke Luna PA-C - 09/25/2011 9:52 AM CDT clinic note dictated Elke Luna PA-C - 09/25/2011 9:51 AM CDT Progress Notes signed by Elke Ritchie PA-C at 09/25/11 144 Also signed by JOSEY Cunha at 09/28/11 0901 Author: Elke Ritchie PA-C Service: (none) Author Type: (none) Filed: 09/25/11 1441 Note Time: 09/25/11950 Status: Signed Graphics Manager: Elke Ritchie PA-C (Physician Hogshead Stock Clerk) NAME: LORA STEWART MR#: [id number] CSN: [id number] AUTHENTICATING CLINICIAN: LILIANA Harkins CONFIRM #: [id number] LOC: 262 CLINIC PROGRESS NOTE DATE OF VISIT: 09/25/2011 : 1980 REASON FOR VISIT: Three month followup on C5-6 arthroplasty. HISTORY OF PRESENT ILLNESS: I had the pleasure of seeing Lora Stewart in our neurosurgical clinic for his 3 month followup. As you know, he underwent successful C5-[address] Garcia. The procedure was done on June. Today he comes in to the clinic and he offers no symptoms. He states that at times he continues to have some stiffness in the back of his neck after playing with kids. He has 2 children, about 30 pounds and he is trying not to lift them up but sometimes he states it is very hard not to do so and everytime when he is more active than he should then he feels some stiffness in the back of his neck withsome tingling sensation going down to his arms. Currently he is unemployed and trying to look into the options as far as employment or going back to school. He denies any weakness in his arms. He denies any balance or gait instability. MEDICATIONS: Reviewed per Epic. PHYSICAL EXAM: VITAL SIGNS: Blood pressure 113/63, pulse is 77, temp 98.1, respiratory rate 20. GENERAL: Appears to be a well-nourished, well-developed male found to be sitting comfortably in a chair, awake, alert and oriented x3. NEURO: Speech is clear, fluent and appropriate for his age. Smile is symmetrical. Muscular strength in his deltoids, biceps, triceps, brachioradialis, intrinsic hand muscles 5/5. The cervical range of motion is intact. The incision appears to be healed well. No erythema, drainage or swelling noted. Voice is normal. He walks with a normal gait. He was able to perform tandem walk without any problems. ASSESSMENT/PLAN: This is a 31-year-old gentleman status post a C5-6 arthroplasty from 07/09/2011. I have reassured him one more time that it will take some time to get full benefit of surgery. We have reviewed the films of his cervical spine which appeared to reveal the hardware is in place with intact alignment. I have educated him that this point in time, he should be very careful with lifting, pushing, pulling or performing any overhead activities more than 25 pounds. I have also educated him that he can start lifting his weight up to 2.5 pounds per week, with a maximum weight lift up to 75 pounds in the next 9-12 months. Plan to see him back in 3 months with a AP and lateral view of cervical spine and will keep you appraised as we proceed. Thank you for allowing us to participate in this patient's care. If you have any further questions, please do not hesitate to call us. This was discussed and dictated for Dr. Garcia. IIT:ANGELA C: CONFIRM #: [id number] documented in this encounter Plan of Treatment Not on filedocumented as of this encounter Visit Diagnoses Diagnosis Cervicalgia Degenerative disc disease, cervical (HRC ) Degeneration of cervical intervertebral disc documented in this encounter Care Teams Rubber Belt Splicer Relationship Specialty Start Date End Date Robin Duncan MD PCP - General 06/03/10 10/17/12 [address] [address] [id number] documented as of this encounter
--- OUTSIDE RECORDS SUMMARY | 2021-12-07 20:33 | XMS_ITS | Encounter Summary ---
:1980 Author Organization [facility] Address [address] [facility] [place] [address] Care Team Providers Name Role Phone Robin Duncan MD Primary Care Provider Reason for Visit Reason Comments Cough Encounter Details Date Type Department Care Team Description 10/16/2011 Hospital Encounter [facility] Shannan Velez, [facility]; Care PA-C [facility] [address] [facility] [address] [place] [address] [address] [phone] [place] [address] Social History Tobacco Use Types Packs/Day Years Used Date Smoking Tobacco: Never Alcohol Use Standard Drinks/Week Comments Not Asked 0 (1 standard drink = 0.6 oz pure alcoho l) Sex Assigned at Date Recorded Not on file documented as of this encounter Last Filed Vital Signs Vital Sign Reading Time Taken Comments Blood Pressure 106/63 10/16/2011 8:49 AM CDT Pulse 73 10/16/2011 8:49 AM CDT Temperature 36.4 ??C (97.5 ??F) 10/16/2011 8:49 AM CDT Respiratory Rate 20 10/16/2011 8:49 AM CDT Oxygen Saturation 97% 10/16/2011 8:49 AM CDT Inhaled Oxygen Concentration - - Weight - - Height - - Body Mass Index - - documented in this encounter Medications at Time of Discharge Medication Sig Dispensed Refills Start Date End Date amphetamine-dextroamphe 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 LW 120 0 08/08/2010 tamine (ADDERALL) 20 MG Addl Instr:Take 1-2 tablet tabs bid Indicated for: Attention Deficit Disorder CELEXA 20MG ORAL TABS Take 1 tablet by mouth 30 0 once a day LORazepam (AKA ATIVAN) Take 1 tablet by mouth 90 3 1 03/09/2009 0.5 MG tablet 3 times daily as needed. LW Addl Instr:Indicated for: Anxiety ALBUterol sulfate HFA Inhale 1-2 puffs every 8 g 0 10/15/2012 inhalation 4 hours as needed for Wheezing and Shortness of Breath. documented as of this encounter ED Notes Shannan Velez PA-C - 10/16/2011 9:47 AM CDT SUBJECTIVE: HPI: Augustus Ramirez Jr. is a 31 y.o. male who presents with not feeling well for the last few days. States it started with a sore throat. Now he is having a coughing which is minimally productive of clear sputum. He is feeling more short of breath. Denies history of asthma or chronic lung disease.States his chest is achy only on the right side of his chest. Symptoms have been constant and worsening. Denies other URI symptoms. States he has a 6 month old at home and is concerned about transferring his illness to them. He did have Adacel 07/08/11. Denies post tussive emesis. Denies fits of coughing. He hasnot taken anything for symptoms currently. Past medical history: Past Medical History Diagnosis Date ??? Pain Back Thoracic 07/17/2005 ??? Pain Neck 07/17/2005 Medications: medications reviewed in EMR Allergies: No Known Allergies Review of Systems: Complete review of systems otherwise unremarkable. OBJECTIVE: Filed Vitals: 10/16/11 0849 BP: 106/63 Pulse: 73 Temp: 36.4 ??C (97.5 ??F) TempSrc: Oral Resp: 20 SpO2: 97% General: Appears mildly fatigued, nontoxic and in NAD. Breathing easily. Eyes: Full EOM, PERRLA, without lesions or injection. Nose: no obvious congestion Sinus: Nontender. Ears: Canals and TM's normal without lesions or swelling. Pharynx: Moist mucous membranes with slight posterior pharyngeal erythema. No exudate or swelling .Tonsils within normal size. Airway is intactwith normal phonation. Neck: Supple, without masses, lymphadenopathy or tenderness. Respiratory: Normal respiratory effort. Lungs are clear with good breath sounds. Breathing easily. mild reactive coughing noted. Heart: RR without murmurs, rubs, or gallops. albuterol nebulizer was given in clinic today. Patient tolerated this well. He feels moderately improved. tightness has resolved. Chest x-ray according to my interpretation shows no acute infiltrate. final radiology over read pending. Rapid strep was negative. overnight culture pending. ASSESSMENT: 1. cough with mild bronchospasm 2. pharyngitis PLAN: Suspect underlying viral etiology. Discussed the lack of indication for antibiotics in viral illnesses. We discussed the typical duration of viral illnesses. Rx for albuterol inhaler as the albuterol helped significantly here in clinic today, side effect profiles reviewed. symptomatic treatments discussed.Use OTC analgesics, oral decongestants, RTC PRN if not gradually improving in the next 5-7days, sooner p.r.n. fevers, worsening cough, shortness of breath or new concerns. The patient was discharged ambulatory and in stable condition. All questions were answered. documented in this encounter Miscellaneous Notes Medication History - Shorty Abbott MD - 10/16/2011 9:47 AM CDT INPATIENT MEDS Encounter Date: 10/16/11 albuterol (PROVENTIL HFA, VENTOLIN HFA) 90 mcg/actuation inhaler Start Date:10/16/11, End Date:10/15/12, Frequency:EVERY 4 HOURS PRN *No Administrations Recorded albuterol (PROVENTIL) 2.5 mg /3 mL (0.083 %) nebulizer solution 2.5 mg Start Date:10/16/11, End Date:10/16/11, Frequency:ONCE Taken Dose Action User Route Site Recorded Comment Reason 10/16/11 0910 2.5 mg Given Lorri Christianson RN Nebulization - 10/16/11 0915 - - documented in this encounter Plan of Treatment Not on filedocumented as of this encounter Procedures Procedure Name Priority Date/Time Associated Diagnosis Comme nts BETA STREP FOLLOWUP Routine 10/16/2011 11:36 AM R esults for this CDT procedure are i n the results section. XR CHEST 2 VIEWS Routine 10/16/2011 9:28 AM Cough Resul ts for this CDT procedure are i n the results section. RAPID STREP SCREEN STAT 10/16/2011 9:01 AM Throat soreness Results for this WAIVED CDT procedure are i n the results section. documented in this encounter Results Beta Strep Followup (10/16/2011 11:36 AM CDT) [facility] Method Time Signature Strep Screen No beta HP CONVERSION hemolytic Strep Group A isolated. Comment: ? ORDERED BY: SHANNAN VELEZ SOURCE: Throat ? COLLECTED: ??10/16/11 11:36 ? PLATED: ? 10/16/11 11:36 Culture Strep, Follow up from Rapid Test ?? FINAL ? 10/17/11 07:45 No beta hemolytic Strep Group A isolate d. Specimen (Source) Anatomical Collection Method Collection Time Re ceived Time Location / / Volume Laterality Throat: 10/16/2011 11:36 AM CDT Shannan Velez PA-C LAB_1 Performing Organization Address City/State/ZIP Code Phon e Number HP CONVERSION XR Chest 2 Views (10/16/2011 9:28 AM CDT) Anatomical Region Laterality Modality Chest, Lung Other Specimen (Source) Anatomical Location Collection Method / Collectio n Time Received Time / Laterality Volume Impressions 10/16/2011 9:41 AM CDT IMPRESSION: ??Negative PA and left later al chest. Narrative 10/16/2011 9:41 AM CDT COMPARISON: ??03/09/2011. ?? FINDINGS: ??Two views were obtained. ??T he lungs and costophrenic angles are clear. ??Heart size and pulmo nary vascularity are within normal limits. ??There is no evidence of pneumothorax or pleural effusion. Procedure Note Simi Floyd MD - 08/17/2015Formattin dwain of this note might be different from the original. COMPARISON: 03/09/2011. FINDINGS: Two views were obtained. The l ungs and costophrenic angles are clear. Heart size and pulmona ry vascularity are within normal limits. There is no evidence of p neumothorax or pleural effusion. IMPRESSION IMPRESSION: Negative PA and left lateral chest. Shannan Velez PA-C RAD GD Rapid Strep Screen Waived (10/16/2011 9:01 AM CDT) Component Value Ref Test Analysis Performed At [facility] Range Method Time Signature Rapid Strep Test performed HP CONVERSIO N Screen Waived by:belshahbaz Rapid Strep Negative for HP CONVERSION Screen Waived Streptococcus group A Comment: ? ORDERED BY: SHANNAN VELEZ SOURCE: Throat ? COLLECTED: ??10/16/11 09:01 ? PLATED: ? 10/16/11 11:35 Rapid Strep Screen Waived ?FINAL ? 10/16/11 11:45 ??Test performed by:sadie ? Negative for Streptococcus group A Specimen (Source) Anatomical Collection Method Collection Time Re ceived Time Location / / Volume Laterality Throat: 10/16/2011 9:01 AM CDT Narrative HP CONVERSION - 10/16/2011 11:45 AM CDT Performed at [facility], [address] [place] [address] Shannan Velez PA-C LAB_1 Performing Organization Address City/State/ZIP Code Phon e Number HP CONVERSION documented in this encounter Visit Diagnoses Diagnosis Cough Throat soreness Acute pharyngitis Triage Assessment Note - Lorri Christianson RN - 10/16/2011 8:48 AM CDT Started yesterday and today sore throat and fatigue. documented in this encounter Care Teams Promotions Assistant Relationship Specialty Start Date End Date Robin Duncan MD PCP - General 06/03/10 10/17/[address] [place] [address] documented as of this encounter
--- OUTSIDE RECORDS SUMMARY | 2021-12-07 20:33 | XMS_ITS | Encounter Summary ---
:1980 Author Organization [facility] Address [address], [place] [address] Care Team Providers Name Role Phone Robin Duncan MD Primary Care Provider Encounter Details Date Type Department Care Team Description 06/22/2012 [facility] [address] Deg[address] rative disc disease, Radiology cervical [address] [place], [place] [id number] Social History Tobacco Use Types Packs/Day Years [...] Comme nts XR CERVICAL SPINE 2 Routine 06/22/2012 11:16 Degenerative disc Results for this VIEWS AM CDT disease, cervical procedure are in the results section. documented in this encounter Results XR Cervical Spine 2 Views (06/22/2012 11:16 AM CDT) Anatomical Region Laterality Modality Spine, C-Spine, Neck Other Specimen (Source) Anatomical Location Collection Method / Collectio n Time Received Time / Laterality Volume Narrative 06/22/2012 1:49 PM CDT Comparison 12/23/2011 No complications visualized is satisfact ory appearance of the anterior spinal fusion at C5-6. ?? Procedure Note Mj Correa MD - 08/17/2015Formatti ng of this note might be different from the original. Comparison 12/23/2011 No complications visualized is satisfact ory appearance of the anterior spinal fusion at C5-6. Vern R Baimeedi MD RAD GD documented in this encounter Visit Diagnoses Diagnosis Degenerative disc disease, cervical (HRC ) Degeneration of cervical intervertebral disc documented in this encounter Care Teams Director Of Analytics Relationship Specialty Start Date End Date Robin Duncan MD PCP - General 06/03/10 10/17/[address] [place] [address] documented as of this encounter
--- OUTSIDE RECORDS SUMMARY | 2021-12-07 20:33 | XMS_ITS | Encounter Summary ---
:1980 Author Organization [facility] Address [address] [place] [address] Care Team Providers Name Role Phone Robin Duncan MD Primary Care Provider Reason for Referral Specialty Diagnoses / Procedures Referred By Contact Refer red To Contact Belkis Mendez MD Referral ID Status Reason Start Date Expiration Date Visits Requ ested Visits Authorized Reason for Visit Reason Comments Spine Cervical Encounter Details Date Type Department Care Team Description 06/09/2011 Initial Consult [facility] Maria De Jesus Colindres N sun pain, acute Therapy PT (Primary Dx) [address] [place] [address] [place], [place] [phone] Social History Tobacco Use Types Packs/Day Years Used Date Smoking Tobacco: Never Alcohol Use Standard Drinks/Week Comments Not Asked 0 (1 standard drink = 0.6 oz pure alcoho l) Sex Assigned at Date Recorded Not on file documented as of this encounter Progress Notes Maria De Jesus Colindres, PT - 06/09/2011 1:54 PM CDT Physical Therapy Cervical/Thoracic Spine Evaluation/Plan of Care Initial Certification Period: 06/09/2011 to 08/07/11 Referring Provider: Belkis Mendez Referring Diagnosis: Cervical Pain. 723.1 Orders: Evaluate and treat. Onset Date: 06/08/2011 History of Onset: Woke with neck pain yesterday and it was progressive involving the whole neck and through muscles on each side. Also woke with a headache today. History of sleeping wrong and waking with a crick in neck. Last episode was about a month or so ago. Usually resolves with-in a couple of days. This episode more intense and very stiff through whole neck. Does feel he has had more generalized soreness through neck over the last month or so with work and home activities. SUBJECTIVE: Pain Details: Pain location: Neck-left. Neck-right. Other Symptoms: Headache. Headache located posterior occipital Current pain intensity level: 7/10. Sleep interruption: Symptoms interrupt normal sleep pattern. Time of Day Worst Pain: All day Pain quality: Burning. Sharp. Aggravating factors: Dressing/Grooming. Sitting. Carrying. Lifting. Driving. Overhead activities. Off work until Thursday. Relieving factors: Medication. Previous treatment for these symptoms: Antiinflammatory, muscle relaxant. Past Medical History: Refer to Electronic Medical Records for past medical history, medications, andadverse drug reactions. Precautions: No known Falls in Past Year: No. Patient's Therapy Goal: Resume previous level of activity symptom free. 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 Is suppose to be going out of [facility] to [place] for a job this week. OBJECTIVE: General: Mood, orientation, and behavior were appropriate. Patient was alert and oriented. Posture/Alignment: Guarded. Screening: -Shoulder Screen: Within normal limits. ROM: Flexion very minimal with increased central and bilateral cervical pain. Extension ~25% with increased lower central cervical pain. Rotation ~30% with bilateral cervical pain. Lateral flexion ~30%with increased bilateral cervical pain.. Pain noted most through upper and lower cervical. Strength: immediate pain with any resistance to flexion or extension of cervical area. Joint Mobility: Upper cervical - pain reproduction. Lower cervical - pain reproduction. C-T junction- pain reproduction. Palpation: Tenderness to palpation in the following muscle groups: Marked tenderness through cervical paraspinal area as well as through upper trap area left greater than right. Special Tests (Positive indicates reproduction of symptoms) -Cervical compression negative to reproduction of symptoms. -Cervical distraction does not change symptoms. -Unable to get good test position for vertebral artery test. -Testing for Alar and transverse ligaments appear stable but there is muscles guarding and decreasedability of patient to relax. Standardized Functioinal Scores: Neck Disability Index: 40 Clinical Global Impression (0=excellent-10=poor) - 7 TREATMENT TODAY -Manual Therapy, 1 or more regions (CPT 98711) - 25 minutes: Use of gentle distraction x30 second holds x6, Grade l,ll PA's and rotation, suboccipital release 30 seconds holds.. tried in varying flexion positions tolerated best in neutral. Tried gentle contract/relax which was not tolerated at all.tolerated all all. -Therapeutic exercise. 5 minutes. Discussed general posture, use of easy ROM, support and cold for home. -Ice (CPT 06540): Cold packs x10 minutes after manual treatment. Response to treatment: Understanding of HEP. Increased stiffness following the cold but less guardedposture Plan for next treatment: Recheck x1 this week and x2 next week for modalities and manual therapy as needed for pain and progression of HEP as tolerated for increased strengthening. Patient may have difficulty with scheduling due to his job and being out of town. ASSESSMENT: Therapist Impression: Disc vs joint dysfunction with muscle guarding. Diagnosis/ICD-9 Code: Cervical Pain (723.1). - Physical Therapy Practice Pattern: Impaired joint mobility, motor function, muscle performance, ROM and reflex integrity associated with spinal disorders (4F). Functional Limitations: Difficulty sleeping. Difficulty dressing. Difficulty with household tasks. Difficulty meeting work demands. Impairments/Treatment Diagnosis: Joint Pain (719.48). Joint Stiffness (719.58). Muscle pain, (myalgia) (729.1). Potential Barriers to Goal Achievement: None apparent. Rehab Prognosis: Good for established goals. PLAN Planned Intervention/Education: Manual therapy. Therapeutic exercise. Heat. Ice. Frequency/Duration: 2 times week for 60 days. Discharge Plan: Goal achievement expected through Home Exercise Program. Consent: This patient was educated on the condition, planned therapy intervention and expectations from treatment. Goals were a collaborative effort of the therapist and patient. Expected Functional Outcomes: -Demonstrate understanding/confidence in home program. in 4-8 weeks. -Demonstrates correct posture and body mechanics without verbal cuing. in 2 months. -Self management of symptoms in 2 months. -Resume previous sleep pattern without awakening due to symptoms in 2 weeks. in 4 weeks. 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 in 4 weeks. -Able to turn neck functional range (65 degrees) for safe driving in 2 weeks. to 4 weeks. -Return to work with restrictions (i.e. To Be Determined by MD)or as MD permits in 1-2 weeks. TOTAL TREATMENT TIME: 65 minutes. Evaluation and Plan of Care completed by: Maria De Jesus Colindres, PT, [id number], 06/09/2011 Shorthand Note completed on: 06/09/2011 1:50 PM The fagot heater is completed by the therapist and the physician electronic signature certifies medical necessity for the plan above. *SH~REHAB~PTCERV ~ Shorthand Note completed on: 06/09/2011 1:50 PM documented in this encounter Plan of Treatment Scheduled Referrals Name Type Priority Associated Diagnoses Order S chedule Physical Therapy Referral Routine Neck pain, acute Ordered : 06/09/2011 documented as of this encounter Visit Diagnoses Diagnosis Neck pain, acute - Primary Cervicalgia documented in this encounter Care Teams Water Mangle Tender Relationship Specialty Start Date End Date Robin Duncan MD PCP - General 06/03/10 10/17/12 [id number] [place] [address] documented as of this encounter
--- OUTSIDE RECORDS SUMMARY | 2021-12-07 20:33 | XMS_ITS | Encounter Summary ---
:1980 Author Organization [facility] Address [address] [facility] [place] [address] Care Team Providers Name Role Phone Robin Duncan MD Primary Care Provider Reason for Visit Reason Comments Spine Cervical Encounter Details Date Type Department Care Team Description 06/17/2011 Office Visit [facility] Maria De Jesus Colindres, Cerv icalgia (Primary Dx); Therapy PT Displacement of cervical intervertebral disc without myelopathy [address] [address] [place] [phone] Social History Tobacco Use Types Packs/Day Years Used Date Smoking Tobacco: Never Alcohol Use Standard Drinks/Week Comments Not Asked 0 (1 standard drink = 0.6 oz pure alcoho l) Sex Assigned at Date Recorded Not on file documented as of this encounter Progress Notes Maria De Jesus Colindres, PT - 06/17/2011 8:38 AM CDT [facility] Physical Therapy Progress Note Visit Number: 3 Initial Certification Period: 06/09/2011 to 08/07/11 Referring [...] so with work and home activities. SUBJECTIVE: Reports after last PT with Alma Garcia went back to MD and an MRI was done with HNP noted. Was referred to Neurosurgery and seen yesterday. He was not interested in surgery and elected hard cervical collar to wear for 2 weeks. New PT orders received for cervical traction. OBJECTIVE: He does report that he was noting improvement with decreased pain and increased motion before Neurosurgery consult. With MD description of possible consequences if he was in MVA or took a fall he elected for bracing. Today pain level 2 in brace and varies 0-4 in brace. No headache since last Thursday. Vague ocassional tingling noted in the evening before being in the brace. Active [facility] test today is negative. Cervical ROM lacking ~25% all ranges with stiffness felt end range. No radicular symptoms present this a.m. and unable to reproduce them today. Patient is off of work with MD appointment in 2 weeks. Standardized Functioinal Scores: Neck Disability Index: Initail -40 Today -32 Clinical Global Impression (0=excellent-10=poor) - Initial -7 Today 4 TREATMENT TODAY -Mechanical cervical traction trial 15# x15 minutes. -Ice (CPT 27383): Cold packs x10 minutes after manual treatment. ASSESSMENT: MRI finding showing HNP cervical. Was placed in fitted hard cervical collar by neurosurgery and new PT orders received for treatment with cervical traction. Noting improvement. with decrease in pain and increase in ROM Diagnosis/ICD-9 Code: Cervical Pain (723.1). - Herniated cervical disc 722.0 Functional Limitations: Difficulty sleeping. Difficulty dressing. Difficulty with household tasks. Difficulty meeting work demands. Expected Functional Outcomes: -Demonstrate understanding/confidence in home program. in 4-8 weeks. -Demonstrates correct posture and body mechanics without verbal cuing. in 2 months. -Self management of symptoms in 2 months. -Resume previous sleep pattern without awakening due to symptoms in 2 weeks. in 4 weeks. 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 in 4 weeks. -Able to turn neck functional range (65 degrees) for safe driving in 2 weeks. to 4 weeks. -Return to work with restrictions (i.e. To Be Determined by MD)or as MD permits in 1-2 weeks. PLAN Recheck x2 next week for modalities and traction as needed for pain and progression of HEP as tolerated. Procedures: Cold Packs 1+ areas (CPT 53233). Mechanical Traction (CPT 68411). Total treatment time: 35 minutes. Therapist: Maria De Jesus Colindres PT, [id number] documented in this encounter Plan of Treatment Not on filedocumented as of this encounter Visit Diagnoses Diagnosis Cervicalgia - Primary Displacement of cervical intervertebral disc without myelopathy ([facility]) Displacement of cervical intervertebral disc without myelopathy documented in this encounter Care Teams Electric Wirer Relationship Specialty Start Date End Date Robin Duncan MD PCP - General 06/03/10 10/17/12 [address] [address] [place] [address] documented as of this encounter
--- OUTSIDE RECORDS SUMMARY | 2021-12-07 20:33 | XMS_ITS | Encounter Summary ---
:1980 Author Organization [employer] Address [address] [place] [address] Care Team Providers Name Role Phone Robin Duncan MD Primary Care Provider Encounter Details Date Type Department Care Team Description 07/09/2011 - Hospital Encounter [facility] 6th Floor Vern Garcia 07/10/2011 [address] [place] [address] Social History Tobacco Use Types Packs/Day Years Used Date Smoking Tobacco: Never Alcohol Use Standard Drinks/Week Comments Not Asked 0 (1 standard drink = 0.6 oz pure alcoho l) Sex Assigned at Date Recorded Not on file documented as of this encounter Last Filed Vital Signs Vital Sign Reading Time Taken Comments Blood Pressure 123/64 07/10/2011 7:00 AM CDT Pulse 78 07/10/2011 7:00 AM CDT Temperature 36.4 ??C (97.5 ??F) 07/10/2011 7:00 AM CDT Respiratory Rate 16 07/10/2011 7:00 AM CDT Oxygen Saturation 97% 07/10/2011 7:00 AM CDT Inhaled Oxygen Concentration - - Weight 78.3 kg (172 lb 9.6 oz) 07/08/2011 2:27 PM CDT Height 184.8 cm (6' 0.76) 07/08/2011 2:27 PM CDT Body Mass Index 22.92 07/08/2011 2:27 PM CDT documented in this encounter Discharge Summaries Spring Lerner PA-C - 07/10/2011 11:00 AM CDT Discharge Summaries signed by Spring Lerner PA-C at 07/16/11 0757 Also signed by JOSEY Cunha at 07/17/11 0831 Author: Spring Lerner PA-C Service: (none) Author Type: Physician Lead Recoverer Filed: 07/17/11 0831 Note Time: 07/10/11 1100 Status: Signed Pay Per Click Strategist: Spring Lerner PA-C (Physician Lead Recoverer) NAME: LORA STEWART MR#: [id number] CSN: [id number] AUTHENTICATING CLINICIAN: Spring Lerner PA-C CONFIRM #: [id number] LOC: 1 HOSPITAL DISCHARGE SUMMARY Corrected Copy 07/15/11 [facility] DATE OF ADMISSION: 07/09/2011 DATE OF DISCHARGE: 07/10/2011 PRIMARY DIAGNOSIS: C5-6 herniated disk. OPERATION PERFORMED: Disk arthroplasty at C5-6 performed July 09, [address] Garcia. COMPLICATIONS: None. CONSULTATIONS: None. The patient is a 31-year-old male who presented to our clinic with a diagnosis of a C5-6 herniated disk in which surgical management was deemed appropriate. The patient was prepared for surgery July 09, 2011, at which time he underwent the above described procedure. Please see the dictated operative report for further details. He tolerated surgery well and there were no complications. Postoperatively he has made an excellent neurosurgical recovery. He has remained afebrile with stable vital signs. He is tolerating a regular diet without difficulty and ambulating well. His operative incision is healing well. There are no signs of drainage, erythema or edema. He is ready to be discharged to home on July 10, 2011 in improved condition as compared to admission. All instructions regarding diet, activity, wound care, bowel management and followup were given to the patient, and he was released in good condition. DISCHARGE MEDICATIONS: 1. Percocet 5/325 mg, #50, instructed to take 1-2 tablets every 4 hours as needed for pain. 2. He states he has muscle relaxants at home. PLAN: 1. Follow up in the neurosurgery clinic in approximately 10-12 days for a wound check. 2. Follow up in the neurosurgery clinic in 6 weeks with AP and lateral cervical x-rays on the day of the appointment. As always the patient was instructed to call or return to the clinic for any worsening or changes in symptoms. 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 120 0 amine (ADDERALL) 20 MG LW Addl Instr:Take tablet 1-2 tabs bid Indicated for: Attention Deficit Disorder CELEXA 20MG ORAL TABS Take 1 tablet by 30 0 02/12/20 04 mouth once a day LORazepam (AKA ATIVAN) Take 1 tablet by 90 3 010 0.5 MG tablet mouth 3 times daily as needed. LW Addl Instr:Indicated for: Anxiety fexofenadine/pseudoephed Take 1 tablet by 60 3 07/1210/16/2011 rine (ANI-D ALLERGY mouth 2 times daily. & CONGESTION) 60-120 MG LW Addl tablet Instr:Indicated for: Allergies fluticasone (aka Place 2 sprays into 16 g 0 03/09/2011 10/16/2011 FLONASE) 50 MCG/ACT each nostril daily nasal spray (every 24 hours). Dose is for each nostril. oxyCODONE-acetaminophen Take 1-2 tablets by 50 tablet 0 12/201107/23/2011 (aka PERCOCET) 5-325 MG mouth every 4 hours tablet as needed for Pain. Maximum 12 tablets/24 hours Indications: PAIN documented as of this encounter Progress Notes Marquita Loyola RN - 07/10/2011 10:30 AM CDT DISCHARGE O: Patient safely discharged to home. D: Patient is alert and oriented x 4. Pt up independently . Discharge criteria met. Vaccines addressed prior to discharge. A: Discharge instructions and medication reconciliation reviewed and given to patient and significant other. Prescriptions sent with patient. Belongings checklist reviewed with patient and significant other and belongs sent. Supplies sent dressing change supplies. Care plan issues addressed and education record updated. R: Patient and significant other verbalizes understanding of discharge instructions. Patient discharged by: ambulation with family. Marquita Loyola RN 10:35 AM 07/10/2011 Michelle Hampton RN - 07/10/2011 9:34 AM CDT Spoke with patient regarding discharge instructions. Discussed incision care, pain management & pain medications, activity restrictions, and bowel care. Patient asked appropriate questions and verbalized understanding of all instructions. Has clinic phone numbers and my card for any questions following discharge. Danelle Pressley RN - 07/09/2011 6:44 PM CDT POST-OP O: Patient will have a stable post-op period. D: Pt arrived to room [address] [place] [address], at 1800 (time). Patient is oriented x 4. Initial Vital Signs: Temp: 36.4 ??C (97.5 ??F) (07/09/11 1805) Pulse: 72 (07/09/11 1835) Resp: 12 (07/09/11 1805) BP: 124/60 mmHg (07/09/11 1835) SpO2: 97 % (07/09/11 1805) Pain rated at: 0. See Assessment and Doc Flowsheets for equipment and lines/drains. Dressing is clean, dry, intact. A: Monitor vital signs and assess patient per protocol. Patient oriented to bed controls and call lights. Discussed plan of care with patient. See Education Record. R: Patient settled to room. Will continue to monitor. documented in this encounter Procedure Notes Vern Garcia MD - 07/10/2011 8:17 AM CDT Op Note signed by JOSEY Cunha at 07/16/11 0648 Author: JOSEY Cunha Service: (none) Author Type: Physician Filed: 07/16/11 0648 Note Time: 07/10/11816 Status: Signed Pay Per Click Strategist: JOSEY Cunha (Physician) NAME: LORA STEWART MR#: [id number] CSN: [id number] AUTHENTICATING CLINICIAN: JOSEY Cunha CONFIRM #: [id number] LOC: 1 OPERATIVE REPORT Corrected Copy 07/15/11 [facility] DATE OF OPERATION: 07/09/2011 : 1980 SURGEON: JOSEY Cunha PREOPERATIVE DIAGNOSIS: C5-6 disk herniation with radiculopathy. 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 PROCEDURE PERFORMED: 1. Anterior cervical approach C5-6 diskectomy. 2. C5-6 arthroplasty. SURGEON: JOSEY Cunha STACKER DRIVER: Spring Lerner PA-C COMPLICATIONS: None. BLOOD LOSS: 10 cc. BRIEF INDICATIONS FOR SURGERY: This is a 31-year-old with refractory neck pain who was considered a candidate with a herniated disk at 5-6 causing central compression on the spinal cord as well as left-sided eccentric compression on the nerve root who was then considered a candidate who would benefit from a C5-6 arthroplasty. PROCEDURE: After this, benefits and alternatives were explained to the patient and the family written informed consent was obtained. The patient was brought into the operating room on a gurney and transferred onto a bed. Satisfactory general endotracheal anesthesia was then induced. The surgical site area was then prepped and draped in a sterile fashion. After the draping was done, a horizontal skin incision was given at the level of the C5-6 interspace and dissection was carried down between the esophagus and carotid artery to reach the prevertebral space. After we reached the prevertebral space a pocket was created below the longus colli muscle on both sides and trim line retractors were then applied. We then deflated and reinflated the endotracheal cuff every 10 minutes moving forwards. We then put in distraction pins into C5 and C6 under fluoroscopic guidance. After appropriate pin placement was confirmed we brought in the operating microscope, carried diskectomy down till we reached the PLL and we noticed that there was a clear disruption in the PLL slightly centric towards the left of the midline and multiple disk fragments causing spinal cord compression. These were then removed and after central and foraminal decompression was completed we decorticated the endplate of C5 to flatten it out and then size 6 x 16 [employer] arthroplasty system and placed the screws under fluoroscopic guidance into C5 and C6. Locking mechanisms were then placed. We then did a final confirmatory AP and lateral x-ray. After the implants looked in good position we irrigated the wound with copious amounts of saline. Intraoperative neurophysiological monitoring was stable. We left a #7 round CHERYL drain and achieved closure in layers using 2-0 Vicryl for the platysma and subcutaneous tissue and 4-0 Monocryl subcuticular stitch. PRB:MEDQ C: CONFIRM #: [id number] documented in this encounter Miscellaneous Notes Medication History - Shorty Abbott MD - 07/10/2011 10:30 AM CDT INPATIENT MEDS Encounter Date: 07/03/11 0.9% sodium chloride latex free syringe 10 mL Start Date:07/10/11, End Date:07/10/11, Frequency:PRN Taken Dose Action User Route Site Recorded Comment Reason 07/10/11 1031 10 mL Given Angie Mascorro RN Intravenous - 07/10/11 1031 - - 0.9% sodium chloride latex free syringe Start Date:07/10/11, End Date:07/10/11, Frequency:- Taken Dose Action User Route Site Recorded Comment Reason 07/10/11 1028 10 mL Given Angie Mascorro RN - - 07/10/11 1028 - - oxyCODONE-acetaminophen (PERCOCET) 5-325 mg per tablet Start Date:07/10/11, End Date:07/23/11, Frequency:EVERY 4 HOURS PRN *No Administrations Recorded acetaminophen (TYLENOL) tablet 650 mg Start Date:07/09/11, End Date:07/10/11, Frequency:EVERY 4 HOURS PRN Taken Dose Action User Route Site Recorded Comment Reason 07/09/11 1912 650 mg Given Danelle Pressley RN Oral - 07/09/11 1913 - - cyclobenzaprine (FLEXERIL) tablet 10 mg Start Date:07/09/11, End Date:07/10/11, Frequency:EVERY 8 HOURS PRN *No Administrations Recorded ondansetron (ZOFRAN) injection 4 mg Start Date:07/09/11, End Date:07/10/11, Frequency:EVERY 6 HOURS PRN Taken Dose Action User Route Site Recorded Comment Reason 07/10/11 1028 4 mg Given Angie Mascorro RN Intravenous - 07/10/11 1028 - - droperidol (INAPSINE) injection 0.625-1.25 mg Start Date:07/09/11, End Date:07/10/11, Frequency:EVERY 6 HOURS PRN Taken Dose Action User Route Site Recorded Comment Reason 07/09/11 210 0.625 mg Given Danelle Pressley RN Intravenous - 07/09/112109 - - magnesium hydroxide (MILK OF MAGNESIA) suspension 30 mL Start Date:07/09/11, End Date:07/10/11, Frequency:DAILY PRN *No Administrations Recorded bisacodyl (DULCOLAX) rectal suppository 10 mg Start Date:07/09/11, End Date:07/10/11, Frequency:DAILY PRN *No Administrations Recorded docusate sodium (COLACE) capsule 100 mg Start Date:07/09/11, End Date:07/10/11, Frequency:2 TIMES DAILY Taken Dose Action User Route Site Recorded Comment Reason 07/10/11 0814 100 mg Given Marquita Loyola RN Oral - 07/10/11 0815 - - 07/09/11 2200 100 mg Not Given Danelle Pressley RN Oral - 07/09/11 2219 - Patient/family refused senna (SENOKOT) tablet 1-2 tablet Start Date:07/09/11, End Date:07/10/11, Frequency:2 TIMES DAILY PRN *No Administrations Recorded amphetamine-dextroamphetamine (ADDERALL) 10 mg tablet 20 mg Start Date:07/09/11, End Date:07/10/11, Frequency:2 TIMES DAILY Taken Dose Action User Route Site Recorded Comment Reason 07/10/11 0814 20 mg Not Given Marquita Loyola RN Oral - 07/10/11 0815 - Patient/family refused 07/09/11 220 20 mg Not Given Danelle Pressley RN Oral - 07/09/112227 - Patient/family refused fexofenadine-pseudoephedrine (ANI-D) 60-120 mg per tablet 1 tablet Start Date:07/09/11, End Date:07/10/11, Frequency:2 TIMES DAILY Taken Dose Action User Route Site Recorded Comment Reason 07/10/11 0814 1 tablet Not Given Marquita Loyola RN Oral - 07/10/11 0815 - Patient/family refused 07/09/111999 1 tablet Not Given Danelle Pressley RN Oral - 07/09/112219 - Patient/family refused fluticasone (FLONASE) 50 mcg/actuation nasal spray 2 spray Start Date:07/09/11, End Date:07/10/11, Frequency:DAILY Taken Dose Action User Route Site Recorded Comment Reason 07/09/11 1815 2 spray Not Given Danelle Pressley RN Each Nostril - 07/09/112219 - Patient/family refused LORazepam (ATIVAN) tablet 0.5 mg Start Date:07/09/11, End Date:07/10/11, Frequency:3 TIMES DAILY PRN Taken Dose Action User Route Site Recorded Comment Reason 07/09/11 2357 0.5 mg Given Annmarie Kirby RN Oral - 07/09/11 2357 - - ceFAZolin (ANCEF) 1 g in dextrose 50 ml IVPB Start Date:07/09/11, End Date:07/10/11, Frequency:EVERY 8 HOURS Taken Dose Action User Route Site Recorded Comment Reason 07/10/11 0600 1 g Not Given Annmarie Kirby RN Intravenous - 07/10/11 0702 - Loss of IV access 07/09/11 221 1 g Given Danelle Pressley RN Intravenous - 07/09/11 221 - - HYDROmorphone (DILAUDID) injection 0.3-0.6 mg Start Date:07/09/11, End Date:07/10/11, Frequency:EVERY 2 HOURS PRN *No Administrations Recorded oxyCODONE-acetaminophen (PERCOCET) 5-325 mg per tablet 1-2 tablet Start Date:07/09/11, End Date:07/10/11, Frequency:EVERY 4 HOURS PRN Taken Dose Action User Route Site Recorded Comment Reason 07/10/11 0725 2 tablet Given Marquita Loyola RN Oral - 07/10/11 0725 - - 07/09/112356 2 tablet Given Annmarie Kirby RN Oral - 07/09/112356 - - 0.9% sodium chloride with KCL 20 mEq infusion Start Date:07/09/11, End Date:07/10/11, Frequency:CONTINUOUS Taken Dose Action User Route Site Recorded Comment Reason 07/09/11 1745 75 mL/hr Surgery Danelle Pressley RN Intravenous - 07/09/11 1914 - - midazolam (VERSED) injection 1-2 mg Start Date:07/09/11, End Date:07/09/11, Frequency:EVERY 5 MIN PRN *No Administrations Recorded fentaNYL (SUBLIMAZE) injection 25-50 mcg Start Date:07/09/11, End Date:07/09/11, Frequency:EVERY 5 MIN PRN *No Administrations Recorded fentaNYL (SUBLIMAZE) injection 25-50 mcg Start Date:07/09/11, End Date:07/09/11, Frequency:EVERY 5 MIN PRN *No Administrations Recorded morphine injection 1-3 mg Start Date:07/09/11, End Date:07/09/11, Frequency:EVERY 5 MIN PRN *No Administrations Recorded HYDROmorphone (DILAUDID) injection 0.2-0.6 mg Start Date:07/09/11, End Date:07/09/11, Frequency:EVERY 5 MIN PRN *No Administrations Recorded ondansetron (ZOFRAN) injection 4 mg Start Date:07/09/11, End Date:07/09/11, Frequency:EVERY 4 HOURS PRN *No Administrations Recorded droperidol (INAPSINE) injection 0.25-0.625 mg Start Date:07/09/11, End Date:07/09/11, Frequency:ONCE PRN *No Administrations Recorded meperidine (DEMEROL) injection 12.5 mg Start Date:07/09/11, End Date:07/09/11, Frequency:EVERY 5 MIN PRN *No Administrations Recorded midazolam (VERSED) injection 0.5-1 mg Start Date:07/09/11, End Date:07/09/11, Frequency:EVERY 5 MIN PRN *No Administrations Recorded midazolam (VERSED) injection 1-2 mg Start Date:07/09/11, End Date:07/09/11, Frequency:EVERY 5 MIN PRN *No Administrations Recorded fentaNYL (SUBLIMAZE) injection 25-50 mcg Start Date:07/09/11, End Date:07/09/11, Frequency:EVERY 5 MIN PRN *No Administrations Recorded HYDROmorphone (DILAUDID) injection 0.2-0.6 mg Start Date:07/09/11, End Date:07/09/11, Frequency:EVERY 5 MIN PRN *No Administrations Recorded fentaNYL (SUBLIMAZE) injection 25-50 mcg Start Date:07/09/11, End Date:07/09/11, Frequency:EVERY 5 MIN PRN *No Administrations Recorded ondansetron (ZOFRAN) injection 4 mg Start Date:07/09/11, End Date:07/09/11, Frequency:EVERY 4 HOURS PRN *No Administrations Recorded meperidine (DEMEROL) injection 12.5 mg Start Date:07/09/11, End Date:07/09/11, Frequency:EVERY 5 MIN PRN *No Administrations Recorded midazolam (VERSED) injection 0.5-1 mg Start Date:07/09/11, End Date:07/09/11, Frequency:EVERY 5 MIN PRN *No Administrations Recorded morphine injection 1-3 mg Start Date:07/09/11, End Date:07/09/11, Frequency:EVERY 5 MIN PRN *No Administrations Recorded dexamethasone (DECADRON) injection 20 mg Start Date:07/09/11, End Date:07/09/11, Frequency:ONCE *No Administrations Recorded ceFAZolin (ANCEF) 2 g in 5% dextrose 50 mL IVPB Start Date:07/09/11, End Date:07/09/11, Frequency:ONCE *No Administrations Recorded lidocaine 1% (PF) 10 mg/mL (1 %) injection Start Date:07/09/11, End Date:-, Frequency:- *No Administrations Recorded lactated ringers infusion Start Date:07/09/11, End Date:-, Frequency:- *No Administrations Recorded lidocaine 1% (PF) 10 mg/mL (1 %) injection Start Date:07/09/11, End Date:07/09/11, Frequency:- *No Administrations Recorded lactated ringers infusion Start Date:07/09/11, End Date:07/09/11, Frequency:- *No Administrations Recorded midazolam (VERSED) 1 mg/mL injection Start Date:07/09/11, End Date:-, Frequency:- *No Administrations Recorded bupivacaine-epinephrine (SENSORCAINE) 0.25 %-1:200,000 injection Start Date:07/09/11, End Date:-, Frequency:- *No Administrations Recorded bacitracin 500 unit/g ointment Start Date:07/09/11, End Date:-, Frequency:- *No Administrations Recorded bacitracin in 0.9% sodium chloride irrigation Start Date:07/09/11, End Date:-, Frequency:- *No Administrations Recorded 0.9% sodium chloride solution Start Date:07/09/11, End Date:-, Frequency:- *No Administrations Recorded gelatin adsorbable (SURGIFOAM) 100 sponge size 100 Start Date:07/09/11, End Date:-, Frequency:- *No Administrations Recorded HYDROmorphone (DILAUDID) 2 mg/mL injection Start Date:07/09/11, End Date:-, Frequency:- *No Administrations Recorded fentaNYL (SUBLIMAZE) 50 mcg/mL injection Start Date:07/09/11, End Date:-, Frequency:- *No Administrations Recorded 0.9% sodium chloride with KCL 20 mEq 20 mEq/L infusion Start Date:07/09/11, End Date:-, Frequency:- *No Administrations Recorded documented in this encounter Plan of Treatment Not on filedocumented as of this encounter Visit Diagnoses Not on filedocumented in this encounter Care Teams Distribution Estimator Relationship Specialty Start Date End Date Robin Duncan MD PCP - General 06/03/10 10/17/12 [address] [place] [place] [id number] documented as of this encounter
--- OUTSIDE RECORDS SUMMARY | 2021-12-07 20:33 | XMS_ITS | Encounter Summary ---
:1980 Author Organization [facility] Address [address] [place] [address] Care Team Providers Name Role Phone Robin Duncan MD Primary Care Provider Reason for Visit Reason Comments Rash Encounter Details Date Type Department Care Team Description 07/06/2012 Office Visit [facility] Ibis Plata Rash (Primary Dx) Medicine [address] [facility] [address] [place] [address] [place] [address] [phone] (Wo rk) Social History Tobacco Use Types Packs/Day Years Used Date Smoking Tobacco: Never Alcohol Use Standard Drinks/Week Comments Not Asked 0 (1 standard drink = 0.6 oz pure alcoho l) Sex Assigned at Date Recorded Not on file documented as of this encounter Last Filed Vital Signs Vital Sign Reading Time Taken Comments Blood Pressure 94/56 07/06/2012 10:17 AM CDT Pulse 60 07/06/2012 10:17 AM CDT Temperature - - Respiratory Rate 18 07/06/2012 10:17 AM CDT Oxygen Saturation - - Inhaled Oxygen Concentration - - Weight - - Height - - Body Mass Index - - documented in this encounter Progress Notes Ibis Plata MD - 07/06/2012 12:43 PM CDT Progress Notes signed by Ibis Plata MD at 07/11/12 3835 Author: Ibis Plata MD Service: (none) Author Type: Physician Filed: 07/11/12 1855 Note Time: 07/07/12 0128 Status: Signed Silk Screen Etcher: Ibis Plata MD (Physician) NAME: LORA STEWART MR#: [id number] CSN: [id number] AUTHENTICATING CLINICIAN: Ibis Plata MD CONFIRM #: [id number] LOC: 502 CLINIC PROGRESS NOTE DATE OF VISIT: 07/06/2012 : 1980 CHIEF COMPLAINT: Rash. HISTORY OF PRESENTING ILLNESS: Lora is a 32-year-old gentleman who today came in with concerns of a rash that has been present on the torso for 4 days. Slowly has been getting worse. Now is also noted on the upper extremities. He denies using any new soap or detergent. It is not itchy, and he does not have any fever. MEDICATIONS: Reviewed. ALLERGIES: NKDA. SOCIAL HISTORY: Patient does smoke. OBJECTIVE: Blood pressure 94/56, pulse 60. GENERAL: The patient is comfortable, no acute distress. CARDIOVASCULAR SYSTEM: S1, S2. Regular. LUNGS: Clear to auscultation bilaterally. SKIN EXAMINATION: On the torso, patient does have some discrete, round and oval, macular papular rash noted, slightly scaly. It is nontender, non-blanchable. ASSESSMENT: Rash, concern for tinea corporis. PLAN: I did a MIA testing and it is negative, but still I gave the patient prescription of ketoconazole 2% cream and recommend to be seen by the shrub planter for further evaluation. SS:MEDQ C: CONFIRM #: [id number] documented in this encounter Plan of Treatment Not on filedocumented as of this encounter Procedures Procedure Name Priority Date/Time Associated Diagnosis Comme nts MIA PREP Routine 07/06/2012 10:52 AM Rash Results for this CDT procedure are i n the results section . documented in this encounter Results MIA Prep (07/06/2012 10:52 AM CDT) [facility] Method Time Signature MIA Yeast None Seen HP CONVERSION MIA Fungus None Seen HP CONVERSION MIA Pseudo None Seen HP CONVERSION Hypae MIA Source Skin HP CONVERSION Scraping ( Specimen Anatomical Collection Method Collection Time Receive d Time (Source) Location / / Volume Laterality 07/06/2012 10:52 07/06/2012 AM CDT 10:55 AM CDT Narrative HP CONVERSION - 07/06/2012 11:18 AM CDT Performed at [facility], [address] [place] [address] Ibis Plata MD LAB_1 Performing Organization Address City/State/ZIP Code Phon e Number HP CONVERSION documented in this encounter Visit Diagnoses Diagnosis Rash - Primary Rash and other nonspecific skin eruption documented in this encounter Care Teams Vp Purchasing Relationship Specialty Start Date End Date Robin Duncan MD PCP - General 06/03/10 10/17/[id number] [place] [address] [place] [address] documented as of this encounter
--- OUTSIDE RECORDS SUMMARY | 2021-12-07 20:33 | XMS_ITS | Encounter Summary ---
:1980 Author Organization [employer] Address [address] [place] [address] Care Team Providers Name Role Phone Robin Duncan MD Primary Care Provider Reason for Visit Reason Comments Neck Pain Encounter Details Date Type Department Care Team Description 06/11/2011 Office Visit [facility] Aniya Esparza Cervical pain (neck); Medicine K Radiculopathy of cervical sp [place]e [address] [place] [phone] Social History Tobacco Use Types Packs/Day Years Used Date Smoking Tobacco: Never Alcohol Use Standard Drinks/Week Comments Not Asked 0 (1 standard drink = 0.6 oz pure alcoho l) Sex Assigned at Date Recorded Not on file documented as of this encounter Last Filed Vital Signs Vital Sign Reading Time Taken Comments Blood Pressure 108/58 06/11/2011 2:49 PM CDT Pulse - - Temperature - - Respiratory Rate 16 06/11/2011 2:49 PM CDT Oxygen Saturation - - Inhaled Oxygen Concentration - - Weight - - Height - - Body Mass Index - - documented in this encounter Progress Notes Aniya Esparza - 06/13/2011 3:32 PM CDT Quick Note: Patient informed, follow-up scheduled with neurosurgery Aniya Esparza - 06/11/2011 6:15 PM CDT Quick Note: patient informed Aniya Esparza Doc - 06/11/2011 6:13 PM CDT Subjective: Chief complaint: Chief Complaint Patient presents with ??? Neck Pain Onset Thursday known inj seen in Augustus Ed Ramirez Jr. is an 31 y.o. male who presents to the clinic for evaluation of ongoing neck pain x 5 days. He has a history of neck and back pain, but this episode seems to be worse. He woke up 5 days ago and had instant shooting sharp pain in his neck which radiated down the back of his arms into his elbows bilaterally, does not go past the elbows. He went to urgent care where they diagnosed him with neck pain and told him to continue to monitor and use Flexeril and percocet. They did not perform x-ray at that time. He reports the medications do not alleviate the pain only make him tired. He has also been going to PT which has not improved his symptoms either. He denies acute injury to his neck. 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 He needs to know what is going on so he can inform his work since he has been unable to work for the past 3 days. He denies numbness or tingling into hands or finger, denies weakness of upper extremities, denies focal neuro deficits. Denies other symptoms or concerns at this time. Please see urgent care and PT notes in [facility] for further information. Other than above, complete review of systems are negative. Past Medical History Diagnosis Date ??? Pain Back Thoracic 07/17/2005 ??? Pain Neck 07/17/2005 Medications reviewed in EMR Adverse drug reactions: Review of patient's allergies indicates no known allergies. Immunizations: Immunization History Administered Date(s) Administered ??? Influenza TIV 0.5ml (36+ mos) 12/04/2007 ? ? Td Adult (>7 years) 04/30/2000 Vital signs: BP 108/58 Resp 16 Objective: Vital signs reviewed General- Patient in no acute distress, appears healthy. General Appearance: no acute distress unless turning head then appears distressed Neck- No visual abnormalities, tenderness over C6-C7 spinous process and also on the paraspinal regions bilaterally extending into the upper trapezius, limited range of motion secondary to pain. Flexion very minimal with increased central and bilateral cervical pain. Extension around 25% with increased lower central cervical pain. Rotation right and left limited worse with right rotation with bilateral cervical pain. Pain noted most through upper and lower cervical. Limited strength due to immediatepain with any resistance to flexion or extension of cervical area. Upper extremity muscle strength is normal bilaterally. Normal mail censor strength bilaterally Sensation is normal bilaterally. Reflexes: normal and symmetric at biceps, triceps, brachioradialis Neurological- alert and oriented. Cranial nerves II-XII grossly intact. Lab/imaging: C-spine 4-5 views- Limited study as described. Essentially negative radiographs of the cervical spine. However, neural foramen are inadequately evaluated. If there are focal neurologic symptoms or evidence of radiculopathy, further evaluation would be recommended with MRI as read by radiology Assessment: Cervical neck pain with radiculopathy Plan: Due to worsening symptoms despite pain medication and PT will x-ray at this time. Discussed results with the patient. Patient is very concerned about symptoms and would like to be scheduled for an MRI at this time. We discussed continuing to monitor as I do not believe this is surgical at this time. No contraindication to steroid use, Will start Rx Medrol dose pack, take as directed with food. Side effect profile reviewed. May continue using percocet and flexeril as directed. Side effect profile reveiwed. Patient was given a note for work through Thursday 06/15. Use ibuprofen and/or Tylenol pain. Encouraged rest, ice 2-3 times daily for 20 minutes. If no improvement after Medrol will go ahead with the cervical MRI. RTC p.r.n. if not gradually improving, sooner p.r.n.. The patient was discharged in stable condition. All questions answered. Patient in agreement with the plan. documented in this encounter Miscellaneous Notes Miscellaneous - 04/11/2016 7:09 PM CSTNotes Recorded by Aniya Esparza PA-C on 06/11/2011 at 6:15 PMpatient informed MANAGER Miscellaneous - 04/11/2016 7:06 PM CSTNotes Recorded by Aniya Esparza PA-C on 06/13/2011 at 3:32 PMPatient informed, follow-up scheduled with neurosurgery MANAGER Letter - 06/11/2011 12:00 AM CDT Images from the original note were not included. [address] [phone] June 11, 2011 Patient: Augustus Ramirez Jr. Date of : 1980 Date of Visit: 06/11/2011 To Whom It May Concern: It is my medical opinion that Augustus Ramirez should remain out of participation until Thursday06/16/10. If you have any questions or concerns, please don't hesitate to call. Sincerely, Aniya Esparza PA-C MANAGER documented in this encounter Plan of Treatment Not on filedocumented as of this encounter Procedures Procedure Name Priority Date/Time Associated Diagnosis Comme nts MR CERVICAL SPINE Routine 06/13/2011 7:53 AM Cervical pa in (neck) Results for this WO IV CONT CDT Radiculopathy of procedure a re in cervical spine the results section. XR CERVICAL SPINE 5 Routine 06/11/2011 3:34 PM Cervical pain (neck) Results for this VIEWS CDT Radiculopathy of procedure a re in cervical spine the results section. documented in this encounter Results MR Cervical Spine WO IV Cont (06/13/2011 7:53 AM CDT) Anatomical Region Laterality Modality Spine, C-Spine, Neck, Vascular Other Specimen (Source) Anatomical Location Collection Method / Collectio n Time Received Time / Laterality Volume Impressions 06/13/2011 1:23 PM CDT IMPRESSION: Moderate sized left paracentral posterio r disk protrusion at the C5-6 level causing mild ventral cord flatteni ng without myelomalacia as well as effacement of the left C6 nerve root within the lateral recess and proximal foramen question lef t C6 distribution radicular symptoms. ??No evidence for demyelinatin g disease. ?? Narrative 06/13/2011 1:23 PM CDT MR cervical spine without contrast. HISTORY: Neck pain, cervical radiculopat hy. TECHNIQUE: Routine protocol without gado linium. FINDINGS: No prior comparisons. C1-C2 level: Unremarkable. C2-3 level: Unremarkable. C3-4 level: Mild bilateral neural forami nal stenosis secondary to uncinate spurring otherwise unremarkable . 45 level: Unremarkable. C5-6 level: Mild posterior disk bulge wi th superimposed moderate size left paracentral posterior disk protrusi on causing mild ventral cord flattening without myelomalacia as well as effacement of the left C6 nerve root in the lateral recess and pro ximal foramen axial images 24 through 26, sagittal images 8 and 9. ??A P midline thecal sac 10 mm. C6-7 level: Unremarkable. C7-T1 level: Unremarkable. Sagittal sequences: Bone marrow signal c haracteristics, vertebral body alignment, craniocervical junction, cervical spinal cord and upper visualized thoracic spinal cord ap pear unremarkable. Procedure Note Clemente Cronin MD - 08/17/2015Formattin g of this note might be different from the original. MR cervical spine without contrast. HISTORY: Neck pain, cervical radiculopat hy. TECHNIQUE: Routine protocol without gado linium. FINDINGS: No prior comparisons. C1-C2 level: Unremarkable. C2-3 level: Unremarkable. C3-4 level: Mild bilateral neural forami nal stenosis secondary to uncinate spurring otherwise unremarkable . 45 level: Unremarkable. C5-6 level: Mild posterior disk bulge wi th superimposed moderate size left paracentral posterior disk protrusi on causing mild ventral cord flattening without myelomalacia as well as effacement of the left C6 nerve root in the lateral recess and pro ximal foramen axial images 24 through 26, sagittal images 8 and 9. AP midline thecal sac 10 mm. C6-7 level: Unremarkable. C7-T1 level: Unremarkable. Sagittal sequences: Bone marrow signal c haracteristics, vertebral body alignment, craniocervical junction, cervical spinal cord and upper visualized thoracic spinal cord ap pear unremarkable. IMPRESSION IMPRESSION: Moderate sized left paracentral posterio r disk protrusion at the C5-6 level causing mild ventral cord flatteni ng without myelomalacia as well as effacement of the left C6 nerve root within the lateral recess and proximal foramen question lef t C6 distribution radicular symptoms. No evidence for demyelinating disease. Transcriptions Clemente Cronin MD - 04/11/2016 7:06 PM CSTNotes Recorded by Aniya Esparza PA-C on 06/13/2011 at 3:32 PMPatient informed, follow-up scheduled with neurosurgery Aniya Esparza RAD MRI XR Cervical Spine 5 Views (06/11/2011 3:34 PM CDT) Anatomical Region Laterality Modality Spine, C-Spine, Neck Other Specimen (Source) Anatomical Location Collection Method / Collectio n Time Received Time / Laterality Volume Impressions 06/11/2011 4:43 PM CDT IMPRESSION: 1. Limited study as described. ??Essenti ally negative radiographs of the cervical spine. ??However, neural fo ramen are inadequately evaluated. ??If there are focal neurolog ic symptoms or evidence of radiculopathy, further evaluation would be recommended with MRI. Narrative 06/11/2011 4:43 PM CDT COMPARISON: None FINDINGS: 5 views. ??Normal height and a lignment of the cervical vertebral bodies. ??No definite fracture s or dislocations. ??Disk spaces are unremarkable. ??Oblique views are poorly positioned and therefore evaluation of the neural prudence en are limited. ??Unremarkable soft tissues. Procedure Note Omar Littlejohn MD - 08/17/2015Formatti ng of this note might be different from the original. COMPARISON: None FINDINGS: 5 views. Normal height and ali gnment of the cervical vertebral bodies. No definite fractures or dislocations. Disk spaces are unremarkable. Oblique views a re poorly positioned and therefore evaluation of the neural prudence en are limited. Unremarkable soft tissues. IMPRESSION IMPRESSION: 1. Limited study as described. Essential ly negative radiographs of the cervical spine. However, neural fora men are inadequately evaluated. If there are focal neurologic symptoms or evidence of radiculopathy, further evaluation would be recommended with MRI. Transcriptions Omar Littlejohn MD - 04/11/2016 7:09 PM CSTNotes Recorded by Aniya Esparza PA-C on 06/11/2011 at 6:15 PMpatient informed Aniya Esparza RAD GD documented in this encounter Visit Diagnoses Diagnosis Cervical pain (neck) Cervicalgia Radiculopathy of cervical spine Brachial neuritis or radiculitis nos documented in this encounter Care Teams Manager Exchange Relationship Specialty Start Date End Date Robin Duncan MD PCP - General 06/03/10 10/17/12 [id number] [address] [id number] documented as of this encounter
--- OUTSIDE RECORDS SUMMARY | 2021-12-07 20:33 | XMS_ITS | Encounter Summary ---
:1980 Author Organization [employer] Address [address] [place] [address] Care Team Providers Name Role Phone Robin Duncan MD Primary Care Provider Reason for Visit Reason Comments Spine Cervical Encounter Details Date Type Department Care Team Description 06/11/2011 Office Visit [facility] Deepak Portillo (Primary Therapy Alma Landaverde, PT Dx) [address] [place] [address] [place], [place] [phone] (Wo rk) Social History Tobacco Use Types Packs/Day Years Used Date Smoking Tobacco: Never Alcohol Use Standard Drinks/Week Comments Not Asked 0 (1 standard drink = 0.6 oz pure alcoho l) Sex Assigned at Date Recorded Not on file documented as of this encounter Progress Notes Alma Portillo, PT - 06/11/2011 1:55 PM CDT [facility] Physical Therapy Progress Note Visit Number: 2 Initial Certification Period: 06/09/2011 to 08/07/11 Referring [...] or so with work and home activities. Initial symptoms: ROM: Flexion very minimal with increased central and bilateral cervical pain. Extension ~25% with increased lower central cervical pain. Rotation ~30% with bilateral cervical pain. Lateral flexion ~30%with increased bilateral cervical pain.. Pain noted most through upper and lower cervical. Strength: immediate pain with any resistance to flexion or extension of cervical area. Neck Disability Index: 40 Clinical Global Impression (0=excellent-10=poor) - 7 Expected Functional Outcomes: -Demonstrate understanding/confidence in home program. in 4-8 weeks. -Demonstrates correct posture and body mechanics without verbal cuing. in 2 months. -Self management of symptoms in 2 months. -Resume previous sleep pattern without awakening due to symptoms in 2 weeks. in 4 weeks. - care associate with decreased pain by 50-75% in 2 weeks - 4 weeks. in 4 weeks. -Able to turn neck functional range (65 degrees) for safe driving in 2 weeks. to 4 weeks. -Return to work with restrictions (i.e. To Be Determined by MD)or as MD permits in 1-2 weeks. SUBJECTIVE:Only some very minimal changes, still very sore in posterior neck and central upper back region, with occasional ache in left triceps region OBJECTIVE: NDI score 44, initial score 40 CGI score 6/10 Patient was fit in to my schedule today for an opening, primary therapist is Maria De Jesus Colindres, PT Treatment today included; - reassess his ROM which is still quite limited in flex/ext, cervical extension is the most painful,and is about 25- 50%, rotations are 50% and painful. SB is 50% and painful - in supine, manual mobilization in side glides, to the right, with right rotation, and end range oscillation, and then to the left, with left rotation, and end range oscillation. Pt reports some increase in left arm tingling with end range left rotation. - in prone lying, PA grade 2 and 3 at low cervical, CT and T1-4 levels, thoracic spin being very tender, and some referral of symptoms to left shoulder beyond grade 3 pressure. - issued neck care booklet, recommend continue to use cold therapy until symptoms no longer constant, painfree ROM, and better postural positions. He does admit to semireclined positioning on the couch, discussed the strain it puts on the tissues - time spent answering pt's many questions, and he has concerns about whether to return to work yet. - cold pack to posterior neck and upper back, supine 15 min ASSESSMENT:cervical pain/strain PLAN:He sees MD for recheck later today,may consider medrol dose afbian if MD feels appropriate Procedures: manual therapy 25 min (CPT 63613) therapeutic ex 5 min (CPT 64621) cold pack 15 min (CPT 98903) Total Treatment Time: 45 min Therapist: Alma Mao, PT, [id number] documented in this encounter Plan of Treatment Not on filedocumented as of this encounter Visit Diagnoses Diagnosis Cervicalgia - Primary documented in this encounter Care Teams It Security Administrator Relationship Specialty Start Date End Date Robin Duncan MD PCP - General 06/03/10 10/17/12 [address] [address] [address] documented as of this encounter
--- OUTSIDE RECORDS SUMMARY | 2021-12-07 20:33 | XMS_ITS | Encounter Summary ---
:1980 Author Organization [facility] Address [address], [place] [address] Care Team Providers Name Role Phone Robin Duncan MD Primary Care Provider Reason for Visit Reason Comments Follow-up Encounter Details Date Type Department Care Team Description 07/01/2011 Office Visit [facility] [address] Vern Garcia (Primary Neurosurgery R, Dx) [address] [place], [place] [address] Social History Tobacco Use Types Packs/Day Years Used Date Smoking Tobacco: Never Alcohol Use Standard Drinks/Week Comments Not Asked 0 (1 standard drink = 0.6 oz pure alcoho l) Sex Assigned at Date Recorded Not on file documented as of this encounter Last Filed Vital Signs Vital Sign Reading Time Taken Comments Blood Pressure 121/69 07/01/2011 10:33 AM CDT Pulse 85 07/01/2011 10:33 AM CDT Temperature - - Respiratory Rate 20 07/01/2011 10:33 AM CDT Oxygen Saturation - - Inhaled Oxygen Concentration - - Weight - - Height - - Body Mass Index - - documented in this encounter Patient Instructions Patient InstructionsDennise Velez - 07/01/2011 4:15 PM CDT Please refer to all handouts given to you during your appointment. If you have any questions or concerns please call [phone]. If you have any questions regarding surgery date and time please call [phone]. documented in this encounter Progress Notes Vern Garcia MD - 07/02/2011 7:21 AM CDT Progress Notes signed by JOSEY Cunha at 07/02/11 1158 Author: JOSEY Cunha Service: (none) Author Type: Physician Filed: 07/02/11 1156 Note Time: 07/02/11720 Status: Signed Orthopaedic General: JOSEY Cunha (Physician) NAME: OLRA STEWART MR#: [id number] CSN: [id number] AUTHENTICATING CLINICIAN: JOSEY Cunha CONFIRM #: [id number] LOC: 223 CLINIC PROGRESS NOTE DATE OF VISIT: 07/01/2011 : 1980 Mr. Stewart is a pleasant 31-year-old gentleman who I have previously seen. Please see my dictation dated 06/16/2011 for other details. Considering his young age, I have tried to send him to physical therapy and place him in a cervical collar. It seems like despite him trying conservative measures he is continuing to have neck pain and radicular symptoms at this current point. I talked to him about the treatment options and explained to him that the best treatment option of the situation is to do a C5-6 arthroplasty. I also explained to him that insurance companies are kind of weird and may or may not approve C5-6 arthroplasty, but I talked to him about both one-level anterior fusion as well as C5-6 arthroplasty, and the third option which is also to do nothing. I discussed with him the risks, benefits and alternatives of both an arthroplasty or a fusion including risk of infection, bleeding, dural tear, CSF leak, risk of spinal cord injury or paralysis, risk of nerve root injury or paralysis, risk of nonresolution of symptoms, risk of dysphagia temporary or permanent, risk of recurrent laryngeal nerve paresis temporary or permanent, risk of major vessel injury, possible stroke, possible , risk of adjacent segment disease if we do a fusion, risk of nonunion if we do a fusion. Having heard and understood these complications, the patient wants to proceed with surgery. We will attempt to contact his insurance company to get an arthroplasty approved. PRB:MEDQ C: CONFIRM #: [id number] Dennise Velez - 07/01/2011 4:15 PM CDT Written and verbal instructions regarding surgery given. Pt asked appropriate questions and verbalized understanding. Pt is to call with any questions or concerns. documented in this encounter Plan of Treatment Not on filedocumented as of this encounter Visit Diagnoses Diagnosis Cervicalgia - Primary documented in this encounter Care Teams Multimedia Authoring Specialist Relationship Specialty Start Date End Date Robin Duncan MD PCP - General 06/03/10 10/17/[address] [place] [address] documented as of this encounter
--- OUTSIDE RECORDS SUMMARY | 2021-12-07 20:33 | XMS_ITS | Encounter Summary ---
:1980 Author Organization [facility] Address [address] [address] Care Team Providers Name Role Phone Md NATHANIEL Boateng Primary Care Provider Encounter Details Date Type Department Care Team Description 05/25/2013 Notes/Orders [facility] [address] Joann Rebolledo RN S/ P cervical spinal Neurosurgery fusion (Primary Dx) [address] [place], [place] [address] Social History Tobacco Use Types Packs/Day Years Used Date Smoking Tobacco: Never Alcohol Use Standard Drinks/Week Comments Not Asked 0 (1 standard drink = 0.6 oz pure alcoho l) Sex Assigned at Date Recorded Not on file documented as of this encounter Progress Notes Joann Rebolledo RN - 05/25/2013 4:41 PM CDT Verbal order taken, read back and confirmed. documented in this encounter Plan of Treatment Not on filedocumented as of this encounter Visit Diagnoses Diagnosis S/P cervical spinal fusion - Primary Arthrodesis status documented in this encounter Care Teams Law Instructor Relationship Specialty Start Date End Date Md Boateng MD PCP - General 10/18/12 [place] [address] documented as of this encounter
--- OUTSIDE RECORDS SUMMARY | 2021-12-07 20:33 | XMS_ITS | Encounter Summary ---
:1980 Author Organization [facility] Address [address] [place] [address] Care Team Providers Name Role Phone Robin Duncan MD Primary Care Provider Reason for Visit Reason Comments Cough FACIAL PAIN Encounter Details Date Type Department Care Team Description 03/09/2011 Hospital Encounter [facility], Tabitha Chest pain, unspecified; Becca Roach MD URI (upper respiratory infec tion); [address] [address] Acute sinusit is, unspecified; Drive Un[place] [address] Social History Tobacco Use Types Packs/Day Years Used Date Smoking Tobacco: Never Alcohol Use Standard Drinks/Week Comments Not Asked 0 (1 standard drink = 0.6 oz pure alcoho l) Sex Assigned at Date Recorded Not on file documented as of this encounter Last Filed Vital Signs Vital Sign Reading Time Taken Comments Blood Pressure 95/60 03/09/2011 2:16 PM PRODUCT ASSURANCE ENGINEER Pulse 88 03/09/2011 2:16 PM PRODUCT ASSURANCE ENGINEER Temperature 36.6 ??C (97.9 ??F) 03/09/2011 2:16 PM PRODUCT ASSURANCE ENGINEER Respiratory Rate 14 03/09/2011 2:16 PM PRODUCT ASSURANCE ENGINEER Oxygen Saturation 97% 03/09/2011 2:16 PM PRODUCT ASSURANCE ENGINEER Inhaled Oxygen Concentration - - Weight - - Height - - Body Mass Index - - documented in this encounter Medications at Time of Discharge Medication Sig Dispensed Refills Start Date End Date 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 LW Addl Instr:Indicated for: Anxiety amoxicillin-clavulanate Take 1 tablet by 20 tablet 0 201103/19/2011 (aka AUGMENTIN) tablet mouth 2 times daily for 10 days. fexofenadine/pseudoephed Take 1 tablet by 60 3 07/1210/16/2011 rine (ANI-D ALLERGY mouth 2 times daily. & CONGESTION) 60-120 MG LW Addl tablet Instr:Indicated for: Allergies fluticasone (aka Place 2 sprays into 16 g 0 03/09/2011 10/16/2011 FLONASE) 50 MCG/ACT each nostril daily nasal spray (every 24 hours). Dose is for each nostril. documented as of this encounter Progress Notes Tabitha Chowdhury MD - 03/09/2011 4:42 PM CST Progress Notes signed by Tabitha Chowdhury MD at 04/01/112156 Author: Tabitha Chowdhury MD Service: (none) Author Type: Physician Filed: 04/01/112156 Note Time: 03/09/11 1642 Status: Signed Manager Transportation: Tabitha Chowdhury MD (Physician) NAME: LORA STEWART MR#: [id number] CSN: [id number] AUTHENTICATING CLINICIAN: Tabitha Chowdhury MD CONFIRM #: [id number] LOC: 520 CLINIC PROGRESS NOTE DATE OF VISIT: 03/09/2011 : 1980 This 30-year-old male comes in with concern for having some kind of infection, mostly respiratory. Has had nasal congestion for more than a month. He states he does have history of allergies and also he is exposed to quite a bit of dust at his job. Also has had a cough which has been mild all along for the past month. No wheezing or history of asthma. He smokes about half a pack a day. Now he is concerned because he has noted some pain in right side of his chest for the past 2 days. Pain gets worse with deep breathing. Denies any fevers, chills or sweats. He is wondering if he has some kind of infection in his right lung. No wheezing. Denies any calf pain or leg swelling. PAST MEDICAL HISTORY: Overall healthy. MEDICATIONS: Adderall. ALLERGIES: None. VITAL SIGNS: Reviewed in Epic and stable. EXAM: Shows patient looking great and he is breathing comfortably. Alert, interactive. Oral mucosa is moist and throat shows mild erythema. Right ear shows mildly congested TM and left ear looks normal. NECK: Supple. No lymph nodes palpable. LUNGS: Clear. CARDIOVASCULAR: Regular rhythm and rate. Normal S1-S2. IMPRESSION: 1. Upper respiratory infection. 2. Sinusitis. 3. Right-sided chest pain, nonspecific. 4. Otitis media. PLAN: Symptomatic management for chest pain recommended. I doubt this is anything serious, but he was advised strongly to make sure he is seen if worsening symptoms, increased pain or shortness of breath which he has never had. If develops then he needs to be seen. We will go ahead and treat patient with a course of Augmentin for 10 days. Flonase nasal spray also was provided. He was advised to use Mucinex and Sudafed. Of course should be rechecked if fever, chills, shortness of breath, feeling sicker in any way. FK:MEDQ C: CONFIRM #: [id number] UCT ASSURANCE ENGINEER documented in this encounter Miscellaneous Notes Medication History - Shorty Abbott MD - 03/09/2011 3:20 PM CST INPATIENT MEDS Encounter Date: 03/09/11 amoxicillin-clavulanate (AUGMENTIN) 875-125 mg per tablet Start Date:03/09/11, End Date:03/19/11, Frequency:2 TIMES DAILY *No Administrations Recorded fluticasone (FLONASE) 50 mcg/Actuation nasal spray Start Date:03/09/11, End Date:10/16/11, Frequency:DAILY *No Administrations Recorded UCT ASSURANCE ENGINEER documented in this encounter Plan of Treatment Not on filedocumented as of this encounter Procedures Procedure Name Priority Date/Time Associated Diagnosis Comme nts XR CHEST 2 VIEWS Routine 03/09/2011 3:03 PM Chest pain, Resul ts for this PRODUCT ASSURANCE ENGINEER unspecified procedure are i n the results section. documented in this encounter Results XR Chest 2 Views (03/09/2011 3:03 PM PRODUCT ASSURANCE ENGINEER) Anatomical Region Laterality Modality Chest, Lung Other Specimen (Source) Anatomical Location Collection Method / Collectio n Time Received Time / Laterality Volume Narrative 03/10/2011 8:21 AM PRODUCT ASSURANCE ENGINEER Two-view chest FINDINGS: Negative. Procedure Note Johnathan Vincent MD - 08/17/2015Format ting of this note might be different from the original. Two-view chest FINDINGS: Negative. Tabitha Chowdhury MD RAD GD documented in this encounter Visit Diagnoses Diagnosis Chest pain, unspecified URI (upper respiratory infection) Acute upper respiratory infections of un specified site Acute sinusitis, unspecified Unspecified otitis media documented in this encounter Care Teams Manufacturing Quality Technician Relationship Specialty Start Date End Date Robin Duncan MD PCP - General 06/03/10 10/17/12 [id number] [address] [place] [id number] documented as of this encounter
--- OUTSIDE RECORDS SUMMARY | 2021-12-07 20:33 | XMS_ITS | Encounter Summary ---
:1980 Author [facility] Address [address] [place] [address] Care Team Providers Name Role Phone Robin Duncan MD Primary Care Provider Encounter Details Date Type Department Care Team Description 06/22/2012 Notes/Orders Special[facility] [address] Deg enerative disc Neurosurgery disease, cervical [address] [facility] [place] [address] Social History Tobacco Use Types Packs/Day Years Used Date Smoking Tobacco: Never Alcohol Use Standard Drinks/Week Comments Not Asked 0 (1 standard drink = 0.6 oz pure alcoho l) Sex Assigned at Date Recorded Not on file documented as of this encounter Plan of Treatment Not on filedocumented as of this encounter Visit Diagnoses Diagnosis Degenerative disc disease, cervical (HRC ) - Primary Degeneration of cervical intervertebral disc documented in this encounter Care Teams Attendance Officer Relationship Specialty Start Date End Date Robin Duncan MD PCP - General 06/03/10 10/17/12 [address] [address] [address] documented as of this encounter
--- OUTSIDE RECORDS SUMMARY | 2021-12-07 20:33 | XMS_ITS | Encounter Summary ---
:1980 Author Organization [employer] Address [address] [place] [address] Care Team Providers Name Role Phone Robin Duncan MD Primary Care Provider Reason for Visit Reason Comments Spine Cervical Encounter Details Date Type Department Care Team Description 06/23/2011 Office Visit [facility] Citlaly Colindres PT Cervicalgia (Primary Therapy [address] [place]) [address] [place] [address] [phone] (Wo rk) Social History Tobacco Use Types Packs/Day Years Used Date Smoking Tobacco: Never Alcohol Use Standard Drinks/Week Comments Not Asked 0 (1 standard drink = 0.6 oz pure alcoho l) Sex Assigned at Date Recorded Not on file documented as of this encounter Progress Notes Maria De Jesus Colindres, MIRELLA - 06/23/2011 12:18 PM CDT [facility] Physical Therapy Progress Note Visit Number: 5 Initial Certification Period: 06/09/2011 to 08/07/11 Referring [...] so with work and home activities. SUBJECTIVE: Notes less stiffness and soreness through cervical region. Hasn't been wearing the collar as much when he is at home. OBJECTIVE: No headache, no U/E pain or radicular symptoms. No L/E symptoms. Pain level 2/10 posterior central cervical. Is still being careful with any increased activity and lifting. Has mild difficulty sleeping. Difficulty with driving and upright activities like reading. Minimal tenderness and tightness through paracervical area greater in upper cervical than lower cervical area. Standardized Functioinal Scores: Neck Disability Index: Initail -40 Today -32 Clinical Global Impression (0=excellent-10=poor) - Initial -7 Today 2 TREATMENT TODAY -Mechanical cervical traction trial 15# x15 minutes. -Soft tissue mobilization and suboccipital release 10 minutes. ASSESSMENT: MRI finding showing HNP cervical. Was [...] in 2 weeks. in 4 weeks. - resident care associate with decreased pain by 50-75% in 2 weeks - 4 weeks. in 4 weeks. -Able to turn neck functional range (65 degrees) for safe driving in 2 weeks. to 4 weeks. -Return to work with restrictions (i.e. To Be Determined by MD)or as MD permits in 1-2 weeks. PLAN Recheck x1 this week for modalities and traction as needed for pain and progression of HEP as tolerated. MD appointment next week. Procedures: Mechanical Traction (CPT 95365). Manual therapy (CPT 85945) 15 minutes Total treatment time: 30 minutes. Therapist: Maria De Jesus Colindres, PT, [id number] documented in this encounter Plan of Treatment Not on filedocumented as of this encounter Visit Diagnoses Diagnosis Cervicalgia - Primary documented in this encounter Care Teams Horser Up Relationship Specialty Start Date End Date Robin Duncan MD PCP - General 06/03/10 10/17/12 [address] [address] [id number] documented as of this encounter
--- OUTSIDE RECORDS SUMMARY | 2021-12-07 20:33 | XMS_ITS | Encounter Summary ---
:1980 Author Organization [employer] Address [address] [facility] [place] [address] Care Team Providers Name Role Phone oRbin Duncan MD Primary Care Provider Reason for Visit Reason Comments Patient Calling Back Encounter Details Date Type Department Care Team Description 06/13/2011 Telephone [facility] Aniya Abad Patient Calling Back [id number] [place] [address] Social History Tobacco Use Types Packs/Day Years Used Date Smoking Tobacco: Never Alcohol Use Standard Drinks/Week Comments Not Asked 0 (1 standard drink = 0.6 oz pure alcoho l) Sex Assigned at Date Recorded Not on file documented as of this encounter Nursing Notes Lena Dempsey - 06/13/2011 2:43 PM CDT Spoke with pt. Instructed that Aniya will not make any specific recommendations. Pt needs to see neurosurgery. Pt verbalized understanding. Neurosurgery consult to be scheduled by DA. Pt to expect calltoday with appointment details. Aniya Esparza - 06/13/2011 2:02 PM CDT I would prefer if he waited until he see neurosurgery. I am hoping he will be able to be seen on Thursday. Lena Dempsey - 06/13/2011 1:54 PM CDT Spoke with pt. Read pt his Cervical MRI results. Instructed pt that he was being referred to neurosurgery for further management and plan for this problem. Pt to continue on the Medrol. 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 Will forward to Aniya Esparza PA-C for recommendations. Keila Martinez - 06/13/2011 1:48 PM CDT pt returning call. Aniya Esparza - 06/13/2011 1:44 PM CDT Left a message for the patient in regard to cervical MRI showing- Moderate sized left paracentral posterior disk protrusion at the C5-6 level causing mild ventral cord flattening without myelomalacia as well as effacement of the left C6 nerve root within the lateral recess and proximal foramen question left C6 distribution radicular symptoms. No evidence for demyelinating disease. I notified him thatI would be referring him to neurology for further management and plan for this problem. He should continue Medrol. Please make this appointment and call patient with information. documented in this encounter Plan of Treatment Not on filedocumented as of this encounter Visit Diagnoses Diagnosis Herniated cervical disc (HRC) Displacement of cervical intervertebral disc without myelopathy Radiculopathy, cervical Brachial neuritis or radiculitis nos documented in this encounter Care Teams Hand Tire Trimmer Relationship Specialty Start Date End Date Robin Duncan MD PCP - General 06/03/10 10/17/12 [address] [address] [place] [address] documented as of this encounter
--- OUTSIDE RECORDS SUMMARY | 2021-12-07 20:33 | XMS_ITS | Encounter Summary ---
:1980 Author Organization [facility] [facility] Address [address] [place] [address] Care Team Providers Name Role Phone Robin Duncan MD Primary Care Provider Reason for Referral Specialty Diagnoses / Procedures Referred By Contact Refer red To Contact Aniya Esparza Referral ID Status Reason Start Date Expiration Date Visits Requ ested Visits Authorized Reason for Visit Reason Comments Referral Encounter Details Date Type Department Care Team Description 06/16/2011 Initial Consult Specialty Center Vern Garcia Her niated cervical disc; [address] Neurosurgery R, Radiculopathy, cervical [address] [place], [place] [address] Social History Tobacco Use Types Packs/Day Years Used Date Smoking Tobacco: Never Alcohol Use Standard Drinks/Week Comments Not Asked 0 (1 standard drink = 0.6 oz pure alcoho l) Sex Assigned at Date Recorded Not on file documented as of this encounter Last Filed Vital Signs Vital Sign Reading Time Taken Comments Blood Pressure 121/72 06/16/2011 10:38 AM CDT Pulse 88 06/16/2011 10:38 AM CDT Temperature - - Respiratory Rate 20 06/16/2011 10:38 AM CDT Oxygen Saturation - - Inhaled Oxygen Concentration - - Weight 79.8 kg (176 lb) 06/16/2011 10:38 AM CDT Height 188 cm (6' 2) 06/16/2011 10:38 AM CDT Body Mass Index 22.6 06/16/2011 10:38 AM CDT documented in this encounter Progress Notes Vern Garcia MD - 06/17/2011 6:33 AM CDT Progress Notes signed by JOSEY Cunha at 06/17/112040 Author: JOSEY Cunha Service: (none) Author Type: Physician Filed: 06/17/112040 Note Time: 06/17/11632 Status: Signed Dean Of Student Services: JOSEY Cunha (Physician) NAME: LORA STEWART MR#: [id number] CSN: [id number] AUTHENTICATING CLINICIAN: JOSEY Cunha CONFIRM #: [id number] LOC: 223 CLINIC PROGRESS NOTE DATE OF VISIT: 06/16/2011 : 1980 SUBJECTIVE: Mr. Stewart is a very pleasant 31-year-old gentleman who has been presenting to us with neck pain since about 2 weeks with essentially radiating pain towards both sides, but left side more than the right side. It was pretty intense, but he also has started noticing tingling and numbness intermittently in both upper extremities. There is no history of balance problems or weakness in the lower extremities. No history of urinary urgency, hesitancy or incontinence. He has never had similar complaints in the past. He did get some steroids with not much benefit. He has tried some course of physical therapy and with not much successful release so far. PAST MEDICAL AND SURGICAL HISTORY: Has been reviewed in the electronic medical record, please see Epic for details. 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 He is , does consume alcohol on a social basis and he smokes half a pack a day for the past 4 years. PHYSICAL EXAMINATION: On examination 6 feet 2 inches, weight 176 pounds, BMI of 22.64, blood pressure 121/72 and pulse of 88. NEUROLOGIC EXAM: High mental functions are normal. Cranial nerves II-XII are normal. Motor and sensory system exam was essentially unremarkable. I personally reviewed the MRI picture of the patient and agree with the Radiology read of a disk extrusion at 5-6 which seems like soft disk which is causing some spinal cord compression and the left foraminal compression. In the absence of any neurologic deficits, he is such a young maryann, would like to try to see if he gets better on his own. I have placed him in a cervical collar and explained to him that if in case he is involved in an injury or accident, there is a possible risk of paralysis and he wants to definitely try the conservative route, so I am going to send him out with the conservative treatment option. He will think about it and get back to us. In a couple of weeks if his symptoms are still persisting, then I will try and see if I can do an artificial disk, if not will have to end up needing to do a 1 level anterior fusion. PRB:MEDQ C: CONFIRM #: [id number] documented in this encounter Plan of Treatment Scheduled Referrals Name Type Priority Associated Diagnoses Order S chedule Neurosurgery (Non Spine) Referral Routine Herniated cervic al Ordered: 06/16/2011 Consult-Adult disc Radiculopathy, cervical documented as of this encounter Visit Diagnoses Diagnosis Herniated cervical disc (HRC) Displacement of cervical intervertebral disc without myelopathy Radiculopathy, cervical Brachial neuritis or radiculitis nos documented in this encounter Care Teams Numerical Control Machine Operator Relationship Specialty Start Date End Date Robin Duncan MD PCP - General 06/03/10 10/17/12 [address] [address] [place] [address] documented as of this encounter
--- OUTSIDE RECORDS SUMMARY | 2021-12-07 20:33 | XMS_ITS | Encounter Summary ---
:1980 Author Organization [facility] Address [address], [place] [address] Care Team Providers Name Role Phone Robin Duncan MD Primary Care Provider Encounter Details Date Type Department Care Team Description 09/25/2011 Imaging [facility] [address] Radiology [address] [place] [address] Social History Tobacco Use Types Packs/Day Years Used Date Smoking Tobacco: Never Alcohol Use Standard Drinks/Week Comments Not Asked 0 (1 standard drink = 0.6 oz pure alcoho l) Sex Assigned at Date Recorded Not on file documented as of this encounter Plan of Treatment Not on filedocumented as of this encounter Visit Diagnoses Not on filedocumented in this encounter Care Teams Wrapper Selector Relationship Specialty Start Date End Date Robin Duncan MD PCP - General 06/03/10 10/17/12 [address] [address] [address] documented as of this encounter
--- OUTSIDE RECORDS SUMMARY | 2021-12-07 20:33 | XMS_ITS | Encounter Summary ---
:1980 Author [facility] Address [address] [place] [address] Care Team Providers Name Role Phone Robin Duncan MD Primary Care Provider Reason for Visit Reason Comments Follow-up Encounter Details Date Type Department Care Team Description 12/23/2011 Office Visit Specialty Center [address] Red[address] Luna disc Neurosurgery TANYA Bedoya disease, cervical [facility] [facility] [place] [address] Social History Tobacco Use Types Packs/Day Years Used Date Smoking Tobacco: Never Alcohol Use Standard Drinks/Week Comments Not Asked 0 (1 standard drink = 0.6 oz pure alcoho l) Sex Assigned at Date Recorded Not on file documented as of this encounter Last Filed Vital Signs Vital Sign Reading Time Taken Comments Blood Pressure 115/69 12/23/2011 8:51 AM CDT Pulse 81 12/23/2011 8:51 AM CDT Temperature - - Respiratory Rate 18 12/23/2011 8:51 AM CDT Oxygen Saturation - - Inhaled Oxygen Concentration - - Weight - - Height - - Body Mass Index - - documented in this encounter Progress Notes Elke Luna PA-C - 12/23/2011 9:23 AM CDT note dictated Elke Luna PA-C - 12/23/2011 9:23 AM CDT Progress Notes signed by Elke Luna PA-C at 12/24/11 1145 Also signed by JOSEY Cunha at 12/24/11 1242 Author: Elke Luna PA-C Service: (none) Author Type: (none) Filed: 12/24/11 1145 Note Time: 12/23/11922 Status: Signed Ultrasonic Tester: Elke Luna PA-C (Physician Junior Programmer) NAME: LORA STEWART MR#: [id number] CSN: [id number] AUTHENTICATING CLINICIAN: LILIANA Giordano CONFIRM #: [id number] LOC: 262 CLINIC PROGRESS NOTE DATE OF VISIT: 12/23/2011 : 1980 REASON FOR VISIT: Postoperative followup. SUBJECTIVE: Lora Stewart is a 31-year-old gentleman who underwent successful C5-[address] Garcia.The procedure was performed on 07/09/2011 and today he presents for his followup. Today, he comes and he offers no symptoms except for at times he feels some numbness on top of the wrists bilaterally but left is much more pronounced than the right. He feels that his left arm is not as strong as it was before. 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 He also feels some pain when heis doing range of motion exercises. He denies any weakness to his arms, to the point that he is dropping things. He denies any trouble with performing fine motor skill activities. He is planning to go back to school, however, he pointed out to me that he feels that because of this surgery he has lost his job and he would like to apply for the Social Security disability and see if it would support that. PHYSICAL EXAM: VITAL SIGNS: Blood pressure 115/69, pulse 81, respiratory rate 18. He appears to be a well-nourished, well-developed gentleman found to be sitting very comfortably in a chair. He is awake, alert, and oriented x 3. NEUROLOGIC: Speech is clear, fluent and appropriate for his age. Smile symmetric. Muscular strength in his deltoids, biceps, triceps, brachioradialis, intrinsic hand muscles 5/5. Range of motion of thecervical spine slightly restricted to either direction with the pain. The incision appears to be healed well. No erythema, drainage or swelling noted. is normal. He walks with a normal gait. Deeptendon reflexes physiologic bilaterally throughout. Muscular strength in his lower extremities 5/5. IMAGING STUDIES: The plain x-ray of cervical spine was obtained today which I personally reviewed and compared to thex-ray from 08/15/2011. It appears to reveal stable and satisfactory postoperative appearance anterior spinal fusion arthroplasty from C5-6. No complications noted. ASSESSMENT: Lora Stewart is a 31-year-old gentleman status post C5-6 arthroplasty. MEDICAL DECISION MAKING: I am delighted with the progress that he has made so far. As far as his disability goes I have told him that usually most of the time after this kind of a surgery we do not necessarily support disability as he should be able to return to work and not require much of the strenuous activities. For example, such as desk work. Therefore, I encouraged him to go back to school, get education that would allow him to get a less stressful and less strenuous job. He seems to understand and is willing to proceed with current recommendations. I plan to see him back in 6 months' time with AP lateral views of the C-spine and we will keep you appraised as we proceed. Thank you for allowing us to participate in this patient's care. If you might have any further questions, please do not hesitate to call us. IIG:MEDQ C: CONFIRM #: [id number] documented in this encounter Plan of Treatment Not on filedocumented as of this encounter Visit Diagnoses Diagnosis Degenerative disc disease, cervical (HRC ) - Primary Degeneration of cervical intervertebral disc documented in this encounter Care Teams M48 M60 Armor Crewman Relationship Specialty Start Date End Date Robin Duncan MD PCP - General 06/03/10 10/17/12 [address] [address] [address] documented as of this encounter
--- OUTSIDE RECORDS SUMMARY | 2021-12-07 20:33 | XMS_ITS | Encounter Summary ---
:1980 Author Organization [employer] Address [address] [place] [address] Care Team Providers Name Role Phone Robin Duncan MD Primary Care Provider Reason for Visit Reason Comments Follow-up Encounter Details Date Type Department Care Team Description 08/15/2011 Office Visit [facility] Spring Lerner, Reddy rative disc 3931 Neurosurgery PA-C disease, cervical [address] (P rimary Dx) [address] [place] [phone] (Wo rk) Social History Tobacco Use Types Packs/Day Years Used Date Smoking Tobacco: Never Alcohol Use Standard Drinks/Week Comments Not Asked 0 (1 standard drink = 0.6 oz pure alcoho l) Sex Assigned at Date Recorded Not on file documented as of this encounter Last Filed Vital Signs Vital Sign Reading Time Taken Comments Blood Pressure 129/74 08/15/2011 11:32 AM CDT Pulse 112 08/15/2011 11:32 AM CDT Temperature 37.1 ??C (98.8 ??F) 08/15/2011 11:32 AM CDT Respiratory Rate - - Oxygen Saturation - - Inhaled Oxygen Concentration - - Weight - - Height - - Body Mass Index - - documented in this encounter Patient Instructions Patient InstructionsSamia Barton 08/15/2011 11:51 AM CDT Stop in [address] on your way out for xrays. Call with further questions/concerns. Samia: [phone] documented in this encounter Progress Notes Samia Barton - 08/15/2011 11:56 AM CDT AVS given. Spring Lerner PA-C - 08/15/2011 11:54 AM CDT Progress Notes signed by Spring Lerner PA-C at 08/22/11 1429 Also signed by JOSEY Cunha at 08/26/11 0801 Author: Spring Lerner PA-C Service: (none) Author Type: Physician Fleet Coordinator Filed: 08/22/11 1421 Note Time: 08/15/11 1154 Status: Signed Classified Ad Taker: Spring Lerner PA-C (Physician Fleet Coordinator) NAME: LORA STEWART MR#: [id number] CSN: [id number] AUTHENTICATING CLINICIAN: Spring Lerner PA-C CONFIRM #: [id number] LOC: 262 CLINIC PROGRESS NOTE DATE OF VISIT: 08/15/2011 : 1980 REASON FOR VISIT: Five weeks status post C5-6 arthroplasty performed July 09, [address] Garcia for a diagnosis of C5-6 herniated disk. HISTORY OF PRESENT ILLNESS: Mr. Caicedo comes to the office stating that the surgery did help him. However, he does still have some posterior cervical pain. He states that he may been overdoing it lifting his niece, who weighs about 40 pounds up in the air and catching her, and he states that immediately after doing that, he started having posterior cervical pain. He also has a 3-year-old daughter, who weighs about 30 pounds, he has been lifting also, which causes increased cervical pain. He is also quite concerned about going back to work where he has to lift up to 100 pounds. He denies any radicular symptoms, weakness or other problems. MEDICATIONS: Reviewed per Epic PHYSICAL EXAM: Blood pressure 129/74, pulse is 112, temperature is 98.7. GENERAL: He is alert and oriented, is in no acute distress, and he is very pleasant during the exam. Incision: Incision of the anterior neck healed well. No signs of infection. MUSCULOSKELETAL: Strength is 5/5 to the upper extremities. Gait is steady within normal limits. NEURO: Cranial nerves II-XII intact. Sensation to light touch is intact and symmetrical. Deep tendon reflexes decreased to the upper extremities. IMPRESSION: Five weeks status post C5-6 arthroplasty PLAN: 1. AP and lateral cervical x-rays on his way out just to be sure the alignment is okay. 2. Physical therapy to evaluate and treat for musculoskeletal discomfort. 3. Return to work was given for him to return to work on Thursday, August 18, 2011, working 4-hour days, gradually increase to full-time, but no lifting greater than 25 pounds. Patient said he would not be able to return to work unless he did not have any lifting restriction so this may be difficult. 4. Follow up in 6 weeks for reevaluation. All of his questions were answered and he was released in good condition. ALL:MEDQ C: CONFIRM #: [id number] documented in this encounter Plan of Treatment Not on filedocumented as of this encounter Procedures Procedure Name Priority Date/Time Associated Diagnosis Comme nts XR CERVICAL SPINE 2 Routine 08/15/2011 12:05 Degenerative disc Results for this VIEWS PM CDT disease, cervical procedure are in the results section. documented in this encounter Results XR Cervical Spine 2 Views (08/15/2011 12:05 PM CDT) Anatomical Region Laterality Modality Spine, C-Spine, Neck Other Specimen (Source) Anatomical Location Collection Method / Collectio n Time Received Time / Laterality Volume Narrative 08/15/2011 12:13 PM CDT When compared with 07/09/2011, no change in appearance of anterior fusion hardware at C5-6. ??Remainder of the cervical spine is unremarkable. Procedure Note Amilcar Gutierrez MD - 08/17/2015Formatti ng of this note might be different from the original. When compared with 07/09/2011, no change in appearance of anterior fusion hardware at C5-6. Remainder of th e cervical spine is unremarkable. Spring SANZ documented in this encounter Visit Diagnoses Diagnosis Degenerative disc disease, cervical (HRC ) - Primary Degeneration of cervical intervertebral disc documented in this encounter Care Teams Kiln Packer Relationship Specialty Start Date End Date Robin Duncan MD PCP - General 06/03/10 10/17/12 [id number] [address] [id number] documented as of this encounter
--- OUTSIDE RECORDS SUMMARY | 2021-12-07 20:33 | XMS_ITS | Encounter Summary ---
:1980 Author Organization [email or web address] Address [address] [place] [address] Care Team Providers Name Role Phone Robin Duncan MD Primary Care Provider Encounter Details Date Type Department Care Team Description 07/09/2011 Notes/Orders [facility] Vern Garcia MD [address] [facility] [place] [address] Social History Tobacco Use Types Packs/Day Years Used Date Smoking Tobacco: Never Alcohol Use Standard Drinks/Week Comments Not Asked 0 (1 standard drink = 0.6 oz pure alcoho l) Sex Assigned at Date Recorded Not on file documented as of this encounter Plan of Treatment Not on filedocumented as of this encounter Procedures Procedure Name Priority Date/Time Associated Diagnosis Comme nts FL C ARM > 1 HOUR Routine 07/09/2011 4:16 PM Resu lts for this CDT procedure are i n the results section. documented in this encounter Results FL C Arm > 1 Hour (07/09/2011 4:16 PM CDT) Anatomical Region Laterality Modality Other Specimen (Source) Anatomical Location Collection Method / Collectio n Time Received Time / Laterality Volume Narrative 07/16/2011 10:28 AM CDT NAME: LORA STEWART MR#: [id number] ?? CSN: [id number] ?? AUTHENTICATING CLINICIAN: JOSEY Henriquez ?? CONFIRM #: [id number] ?? LOC: 1 ?? OPERATIVE REPORT ?? Corrected Copy 07/15/11 dmf/DOS ?? DATE OF OPERATION: 07/09/2011 ?? : 1980 ?? SURGEON: JOSEY Cunha ?? PREOPERATIVE DIAGNOSIS: ?? 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 ?? POSTOPERATIVE DIAGNOSIS: ?? 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 ?? PROCEDURE PERFORMED: ?? 1. Anterior cervical approach C5-6 diske ctomy. ?? 2. C5-6 arthroplasty. ?? SURGEON: ?? JOSEY Cunha ?? CLOTHING PRESSER: ?? Spring Lerner PA-C ?? COMPLICATIONS: ?? None. ?? BLOOD LOSS: ?? 10 cc. ?? BRIEF INDICATIONS FOR SURGERY: ?? This is a 31-year-old with refractory ne ck pain who was considered a candidate ?? with a herniated disk at 5-6 causing santo tral compression on the spinal cord as ?? well as left-sided eccentric compression on the nerve root who was then ?? considered a candidate who would benefit from a C5-6 arthroplasty. ?? PROCEDURE: ?? After this, benefits and alternatives we re explained to the patient and the ?? family written informed consent was obta ined. The patient was brought into ?? the operating room on a gurney and trans ferred onto a bed. Satisfactory ?? general endotracheal anesthesia was then induced. The surgical site area was ?? then prepped and draped in a sterile fas hion. After the draping was done, a ?? horizontal skin incision was given at th e level of the C5-6 interspace and ?? dissection was carried down between the esophagus and carotid artery to reach ?? the prevertebral space. After we reached the prevertebral space a pocket was ?? created below the longus colli muscle on both sides and trim line retractors ?? were then applied. We then deflated and reinflated the endotracheal cuff ?? every 10 minutes moving forwards. We the n put in distraction pins into C5 and ?? C6 under fluoroscopic guidance. After ap propriate pin placement was confirmed ?? we brought in the operating microscope, carried diskectomy down till we ?? reached the PLL and we noticed that ther e was a clear disruption in the PLL ?? slightly centric towards the left of the midline and multiple disk fragments ?? causing spinal cord compression. These w ere then removed and after central ?? and foraminal decompression was complete d we decorticated the endplate of C5 ?? to flatten it out and then size 6 x 16 M edtronic arthroplasty system and ?? placed the screws under fluoroscopic martinez dance into C5 and C6. Locking ?? mechanisms were then placed. We then did a final confirmatory AP and lateral ?? x-ray. After the implants looked in good position we irrigated the wound with ?? copious amounts of saline. Intraoperativ e neurophysiological monitoring was ?? stable. We left a #7 round CHERYL drain and achieved closure in layers using 2-0 ?? Vicryl for the platysma and subcutaneous tissue and 4-0 Monocryl subcuticular ?? stitch. ?? PRB:MEDQ C: ?? CONFI #: [id number] Procedure Note Vern Garcia - 08/17/2015Formatti ng of this note might be different from the original. NAME: LORA STEWART MR#: [id number] CSN: [id number] AUTHENTICATING CLINICIAN: JOSEY Henriquez CONFIRM #: [id number] LOC: 1 OPERATIVE REPORT Corrected Copy 07/15/11 dmf/DOS DATE OF OPERATION: 07/09/2011 : 1980 SURGEON: JOSEY Cunha PREOPERATIVE DIAGNOSIS: C5-6 disk herniation with radiculopathy. 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 PROCEDURE PERFORMED: 1. Anterior cervical approach C5-6 diske ctomy. 2. C5-6 arthroplasty. SURGEON: JOSEY Cunha CLOTHING PRESSER: Spring Lerner PA-C COMPLICATIONS: None. BLOOD LOSS: 10 cc. BRIEF INDICATIONS FOR SURGERY: This is a 31-year-old with refractory ne ck pain who was considered a candidate with a herniated disk at 5-6 causing santo tral compression on the spinal cord as well as left-sided eccentric compression on the nerve root who was then considered a candidate who would benefit from a C5-6 arthroplasty. PROCEDURE: After this, benefits and alternatives we re explained to the patient and the family written informed consent was obta ined. The patient was brought into the operating room on a gurney and trans ferred onto a bed. Satisfactory general endotracheal anesthesia was then induced. The surgical site area was then prepped and draped in a sterile fas hion. After the draping was done, a horizontal skin incision was given at th e level of the C5-6 interspace and dissection was carried down between the esophagus and carotid artery to reach the prevertebral space. After we reached the prevertebral space a pocket was created below the longus colli muscle on both sides and trim line retractors were then applied. We then deflated and reinflated the endotracheal cuff every 10 minutes moving forwards. We the n put in distraction pins into C5 and C6 under fluoroscopic guidance. After ap propriate pin placement was confirmed we brought in the operating microscope, carried diskectomy down till we reached the PLL and we noticed that ther e was a clear disruption in the PLL slightly centric towards the left of the midline and multiple disk fragments causing spinal cord compression. These w ere then removed and after central and foraminal decompression was complete d we decorticated the endplate of C5 to flatten it out and then size 6 x 16 M edtronic arthroplasty system and placed the screws under fluoroscopic martinez dance into C5 and C6. Locking mechanisms were then placed. We then did a final confirmatory AP and lateral x-ray. After the implants looked in good position we irrigated the wound with copious amounts of saline. Intraoperativ e neurophysiological monitoring was stable. We left a #7 round CHERYL drain and achieved closure in layers using 2-0 Vicryl for the platysma and subcutaneous tissue and 4-0 Monocryl subcuticular stitch. PRB:MEDQ C: CONFI #: [id number] Vern Garcia MD RAD [place] documented in this encounter Visit Diagnoses Not on filedocumented in this encounter Care Teams Setter Out Relationship Specialty Start Date End Date Robin Duncan MD PCP - General 06/03/10 10/17/12 [address] [address] [id number] documented as of this encounter
--- OUTSIDE RECORDS SUMMARY | 2021-12-07 20:33 | XMS_ITS | Encounter Summary ---
:1980 Author Organization [email or web address] Address [address] [place] [address] Care Team Providers Name Role Phone Robin Duncan MD Primary Care Provider Reason for Referral Specialty Diagnoses / Procedures Referred By Contact Refer red To Contact Vern Garcia MD Referral ID Status Reason Start Date Expiration Date Visits Requ ested Visits Authorized Reason for Visit Reason Comments Spine Cervical Encounter Details Date Type Department Care Team Description 06/26/2011 Office Visit [place] [facility] Citlaly Colindres PT Herniated cervical disc; Therapy [address] Radiculopathy, cervical; [address] [place], [place] [phone] (Wo rk) Social History Tobacco Use Types Packs/Day Years Used Date Smoking Tobacco: Never Alcohol Use Standard Drinks/Week Comments Not Asked 0 (1 standard drink = 0.6 oz pure alcoho l) Sex Assigned at Date Recorded Not on file documented as of this encounter Progress Notes Maria De Jesus Colindres PT - 07/23/2011 12:54 PM CDT Name: Augustus Ramirez Service Date: 07/23/2011 MR# : [id number] Dictating Clinician: Maria De Jesus Colindres : 1980 Age: 31 y.o. Physical Therapy Discharge Summary Referring Physician: Belkis Mendez Diagnosis: Cervical pain Onset Date: 06/08/2011 Date of First Visit: 06/09/2011 Date of Last Visit: 06/26/2011 Total Visits: 6 Missed Appointments: 1 Examination/Evaluation: See evaluation in Electronic Medical Record completed on the first visit date (listed above). Treatment and education reviewed: Refer to progress notes in Electronic Medical Records. Initial Compared to Final Outcomes: Significant decrease in pain over 2 weeks. Was placed in cervical collar after nuerosurgical consult. Failed appointment on 06/16/2011 and was seen again in neurosurgery and had surgical intervention on 07/09/2011 with discectomy and arhroplasty of C 5-6. He was discharged to home. DC PT at this time. Discharge Reason: Medical complications Discharge Recommendation: MD recheck Outcome Measures: Neck Disability 06/09/2011 - 40 06/26/2011 - 32 CGI 06/09/2011 - 7 06/26/2011 - 2 Program Group: spine cervical Home Program Provided: Partial Maria De Jesus Colindres PT #[id number] Maria De Jesus Colindres, PT - 06/26/2011 12:09 PM CDT [facility] Physical Therapy Progress Note Visit Number: 6 Initial Certification Period: 06/09/2011 to 08/07/11 Referring [...] so with work and home activities. SUBJECTIVE: Being out of collar intermittently throughout the day helps to decrease muscle soreness and stiffness. OBJECTIVE: No headache, no U/E pain or radicular symptoms. No L/E symptoms. Pain level 2/10 posterior central cervical. Is still being careful with any increased activity and lifting. Has mild difficulty sleeping. Difficulty with driving and upright activities like reading in brace Minimal tenderness and tightness through paracervical area greater in upper cervical than lower cervical area. Standardized Functioinal Scores: Neck Disability Index: Initail -40 Today -32 Clinical Global Impression (0=excellent-10=poor) - Initial -7 Today 2 TREATMENT TODAY -Mechanical cervical traction trial 15# x15 minutes. -Soft tissue mobilization and suboccipital release 10 minutes. ASSESSMENT: Decreased pain since onset. Wearing hard cervical collar. MRI finding showing HNP cervical. Was placed in fitted hard cervical collar by neurosurgery and new PT orders received for treatment with cervical traction. Noting improvement. with decrease in pain and increase in ROM Diagnosis/ICD-9 Code: Cervical Pain (723.1). - Herniated cervical disc 722.0 central with cord compression Functional Limitations: Difficulty sleeping. Difficulty dressing. Difficulty with household tasks. Difficulty meeting work demands. Expected Functional Outcomes: -Demonstrate understanding/confidence in home program. in 4-8 weeks. -Demonstrates correct posture and body mechanics without verbal cuing. in 2 months. -Self management of symptoms in 2 months. -Resume previous sleep pattern without awakening due to symptoms in 2 weeks. in 4 weeks. - healthcare market consultant with decreased pain by 50-75% in 2 weeks - 4 weeks. in 4 weeks. -Able to turn neck functional range (65 degrees) for safe driving in 2 weeks. to 4 weeks. -Return to work with restrictions (i.e. To Be Determined by MD)or as MD permits in 1-2 weeks. PLAN Will hold chart x2 weeks pending MD recheck next week. Procedures: Mechanical Traction (CPT 57792). Manual therapy (CPT 59987) 15 minutes Total treatment time: 30 minutes. Therapist: Maria De Jesus Colindres, PT, [id number] documented in this encounter Plan of Treatment Scheduled Referrals Name Type Priority Associated Diagnoses Order [facility] Physical Therapy Referral Routine Herniated cervi jesika disc Ordered: 06/26/2011 Radiculopathy, cervical documented as of this encounter Visit Diagnoses Diagnosis Herniated cervical disc (HRC) Displacement of cervical intervertebral disc without myelopathy Radiculopathy, cervical Brachial neuritis or radiculitis nos Cervicalgia documented in this encounter Care Teams Beaming Inspector Relationship Specialty Start Date End Date Robin Duncan MD PCP - General 06/03/10 10/17/12 [address] [address] [id number] documented as of this encounter
--- OUTSIDE RECORDS SUMMARY | 2021-12-07 20:33 | XMS_ITS | Encounter Summary ---
:1980 Author Organization [facility] Address [address] [place] [address] Care Team Providers Name Role Phone Md NATHANIEL Boateng Primary Care Provider Reason for Visit Reason Comments Ear Pain Encounter Details Date Type Department Care Team Description 03/30/2013 Hospital Encounter [facility] SARA DuranTI (acute upper respiratory infection) (Primary Dx); Care Hubert Mcclure MD Otitis media, right [address] [phone] [address] Social History Tobacco Use Types Packs/Day Years Used Date Smoking Tobacco: Never Alcohol Use Standard Drinks/Week Comments Not Asked 0 (1 standard drink = 0.6 oz pure alcoho l) Sex Assigned at Date Recorded Not on file documented as of this encounter Last Filed Vital Signs Vital Sign Reading Time Taken Comments Blood Pressure 114/68 03/30/2013 6:05 PM BRIDGE MANAGER Pulse 77 03/30/2013 6:05 PM BRIDGE MANAGER Temperature 36.9 ??C (98.4 ??F) 03/30/2013 6:05 PM BRIDGE MANAGER Respiratory Rate 14 03/30/2013 6:05 PM BRIDGE MANAGER Oxygen Saturation 97% 03/30/2013 6:05 PM BRIDGE MANAGER Inhaled Oxygen Concentration - - Weight - - Height - - Body Mass Index - - documented in this encounter Medications at Time of Discharge Medication Sig Dispensed Refills Start Date End Date amphetamine-dextroamphetam LW Comment:Pick 120 0 10/2010 ine (ADDERALL) 20 MG up. LW Addl tablet Instr:Take 1-2 tabs bid Indicated for: Attention Deficit Disorder CELEXA 20MG ORAL TABS Take 1 tablet by 30 0 02/12/20 04 mouth once a day cyclobenzaprine (AKA Take 1 tablet by 30 tablet 0 3 FLEXERIL) 10 MG mouth 3 times tabletIndications: daily as needed Cervicalgia for Muscle spasms. Dextromethorphan HBr Take by mouth. 0 03/30/2013 (VICKS DAYQUIL COUGH OR) ketoconazole (AKA NIZORAL) Apply topically 30 g 0 08/2012 2 % creamIndications: Rash daily (every 24 hours). LORazepam (AKA ATIVAN) 0.5 Take 1 tablet by 90 3 09/2009 MG tablet mouth 3 times daily as needed. LW Addl Instr:Indicated for: Anxiety ondansetron (ZOFRAN) 8 MG Take 1 tablet by 30 tablet 0 05/2012 tablet mouth every 8 hours as needed for Nausea or Vomiting. amoxicillin (aka AMOXIL) Take 1 capsule by 21 capsule 0 03/0304/06/2013 capsuleIndications: Otitis mouth 3 times media, right daily for 7 days. ondansetron (aka ZOFRAN) Take 1 tablet by 30 tablet 0 01/0309/07/2015 tablet mouth every 8 hours as needed for Nausea or Vomiting. VICKS DAYQUIL COUGH OR Take by mouth. 0 4 09/07/2015 documented as of this encounter ED Notes Hubert Duran MD - 03/30/2013 6:53 PM CST ED Provider Notes signed by Hubert Duran MD at 04/02/13 0756 Author: Hubert Duran MD Service: (none) Author Type: Physician Filed: 04/02/13 0756 Note Time: 03/30/132129 Status: Signed Dimension Specification Inspector: Hubert Duran MD (Physician) NAME: LORA STEWART MR#: [id number] CSN: [id number] AUTHENTICATING CLINICIAN: Hubert Duran MD CONFIRM #: [id number] LOC: 520 URGENT CARE PROGRESS NOTE DATE OF VISIT: 03/30/2013 : 1980 CHIEF COMPLAINT: Ear pain. HISTORY OF PRESENT ILLNESS: This patient has had a cold for 3-4 days, a congested cough and fullness in his head. His ears have felt full, especially on the right side where he has had some discomfort. He does not have a history of recurrent ear infections. Unfortunately, he is a smoker. ALLERGIES: Per Epic. MEDICATIONS: Per Epic. EXAMINATION: Cooperative, congested, alert gentleman, not acutely ill appearing. VITAL SIGNS: Per Epic. His left tympanic membrane is normal. Right tympanic membrane is quite erythematous superiorly and centrally. The throat is not injected. No abnormal neck masses. NECK: Supple. He has some nasal congestion. LUNGS: Clear to auscultation. Good air entry. ASSESSMENT: 1. Right otitis media. 2. Upper respiratory tract infection. DISPOSITION: Symptomatic treatment with analgesics. Amoxil 500 t.i.d. x7 days. Rest. If increased symptoms or concerns, reassess. JBF:MEDQ C: CONFIRM #: [id number] GE MANAGER documented in this encounter Miscellaneous Notes Medication History - Shorty Abbott MD - 03/30/2013 6:15 PM CST INPATIENT MEDS Encounter Date: 03/30/13 amoxicillin (AMOXIL) 500 mg capsule Start Date:03/30/13, End Date:04/06/13, Frequency:3 TIMES DAILY *No Administrations Recorded D-METHORPHAN/PE/ACETAMINOPHEN (VICKS DAYQUIL ORAL) Start Date:-, End Date:-, Frequency:- *No Administrations Recorded GE MANAGER documented in this encounter Plan of Treatment Not on filedocumented as of this encounter Visit Diagnoses Diagnosis URTI (acute upper respiratory infection) - Primary Acute upper respiratory infections of un specified site Otitis media, right Unspecified otitis media Triage Assessment Note - Leann Larson RN - 03/30/2013 6:05 PM CST pt c/o bilateral ear pain for a few days. documented in this encounter Care Teams Ranger Aide Relationship Specialty Start Date End Date Md Boateng MD PCP - General 10/18/12 [place] [address] documented as of this encounter
--- OUTSIDE RECORDS SUMMARY | 2021-12-07 20:33 | XMS_ITS | Encounter Summary ---
:1980 Author Organization [facility] Address [address] [place] [address] Care Team Providers Name Role Phone Robin Duncan MD Primary Care Provider Reason for Visit Reason Comments PRE-OP EXAM Encounter Details Date Type Department Care Team Description 07/08/2011 Pre-Op Visit [facility] Aniya Esparza Pre-op evaluation (Primary Dx); Medicine Herniated disc; [id number]. Need for diphtheria-tetanus- pertussis (Tdap) [place] [phone] Social History Tobacco Use Types Packs/Day Years Used Date Smoking Tobacco: Never Alcohol Use Standard Drinks/Week Comments Not Asked 0 (1 standard drink = 0.6 oz pure alcoho l) Sex Assigned at Date Recorded Not on file documented as of this encounter Last Filed Vital Signs Vital Sign Reading Time Taken Comments Blood Pressure 114/70 07/08/2011 10:08 AM CDT Pulse 77 07/08/2011 10:08 AM CDT Temperature 36.3 ??C (97.3 ??F) 07/08/2011 10:08 AM CDT Respiratory Rate 16 07/08/2011 10:08 AM CDT Oxygen Saturation - - Inhaled Oxygen Concentration - - Weight 78.3 kg (172 lb 9.6 oz) 07/08/2011 10:08 AM CDT Height 184.8 cm (6' 0.75) 07/08/2011 10:08 AM CDT Body Mass Index 22.93 07/08/2011 10:08 AM CDT documented in this encounter OR Notes H&P - Aniya Esparza - 07/08/2011 10:31 AM CDT PREOPERATIVE ASSESSMENT Age: 31 y.o. Sex: male Chief Complaint Patient presents with ??? Pre-op Exam neck surgery [facility] Primary care physician: Robin Duncan MD [phone] CHIEF COMPLAINT/HISTORY OF PRESENT ILLNESS Augustus Ramirez Jr. is a 31 y.o. male who presents to the the clinic for pre- operative evaluation before prosthetic disc insertion between C5C6 on 07/[address] Garcia at [facility]. Dx before surgeryis herniated disc which occurred approx. 1 month ago, patient did PT without resolution. Currently c/o dull ache in neck intemittent radiculopathy into arms. Denies other symptoms or concerns at this time. Denies recent infection, fever, chest pain, palpitations, cough, SOB, N/V/D. No history of anesthesia problems, bleeding or clotting disorders. Able to walk up 2 flights of stairs without problem. Overall healthy other than tobacco use is quitting tomorrow. Risk Factors/Review of Systems: (Please see flowsheets for details) Cardiovascular risks positive for: Renal risks positive for: Neuro risks positive for: GI risks positive for: Pulmonary risks positive for: Smoker: Amt/Quit Date:: 07-09-2011 Endocrine/Nutrition risks positive for: Hematologic Disease risks positive for: Musculoskeletal/Skin risks positive for: Mental Health risks positive for: Anxiety: Other risk factors positive for: Summary of recommendations: Complete review of systems is otherwise negative except as noted: Neck pain. Past Medical History Diagnosis Date ??? Pain Back Thoracic 07/17/2005 ??? Pain Neck 07/17/2005 No past surgical history on file. Family History Problem Relation Age of Onset ??? Cancer Father History Social History ??? 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 Smoking status: Current Everyday Smoker -- 0.5 packs/day Types: Cigarettes ??? Smokeless tobacco: No Comment: Smoking History Packs/day: ??? Alcohol Use: No Alcoholic Drinks/day: Freq:=< Monthly; ??? Drug Use: No ??? Sexually Active: Yes -- Female partner(s) Current outpatient prescriptions Medication Sig Dispense Refill ??? 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 LW Addl Instr:Take 1-2tabs bid Indicated for: Attention Deficit Disorder 120 ??? fexofenadine-pseudoephedrine (ANI-D 12 HOUR) 60-120 mg per tablet Take 1 tablet by mouth 2 times daily. LW Addl Instr:Indicated for: Allergies 60 3 No Known Allergies PHYSICAL EXAMINATION Temp: 97.4 ??F (36.3 ??C) (07/08/111007) Pulse: 77 (07/08/111007) Resp: 16 (07/08/111007) BP: 114/70 mmHg (07/08/111007) Height: 6' 0.75 (184.8 cm) (07/08/111007) Weight: 172 lb 9.6 oz (78.291 kg) (07/08/111007) BMI (Calculated): 22.98 (07/08/111007) General Appearance: Alert, cooperative, no distress, appears stated age Head: Normocephalic, without obvious abnormality, atraumatic Eyes: PERRL, conjunctiva/corneas clear, EOM's intact, fundi benign, both eyes. No contact lenses. Ears: Normal TM's and external ear canals, both ears Nose: Nares normal, septum midline, mucosa normal, no drainage or sinus tenderness Throat: Lips, mucosa, and tongue normal; teeth and gums normal. No oral appliances. Neck: Supple, symmetrical, trachea midline, no adenopathy; thyroid: no enlargement/tenderness/nodules; no carotid bruit or JVD Lungs: Clear to auscultation bilaterally, respirations unlabored Chest Wall: No tenderness or deformity Heart: Regular rate and rhythm, S1 and S2 normal, no murmur, rub or gallop Abdomen: Soft, non-tender, bowel sounds active all four quadrants, no masses, no organomegaly Extremities: Extremities normal, atraumatic, no cyanosis or edema Pulses: 2+ and symmetric all extremities Skin: Skin color, texture, turgor normal, no rashes or lesions Neurologic: CNII-XII intact, normal strength, sensation and reflexes throughout TEST RESULTS AND DATE EKG done: No Labs done: No OTHER GUIDELINES Medication Adjustment Recommendations - Patients should take ALL medications on the day of surgery EXCEPT: ?? Plavix - hold 1 week ?? Coumadin - hold 5 days, restart day of surgery if possible ?? Lovenox - hold 24 hours ?? Aspirin - hold 7 days; continue for patients at high risk for cardiovascular complications exceptPlastics/Neuro/ENT. Consult surgeon if unsure. * Cataract patients may stay on any/all blood thinners including aspirin unless otherwise specified by sample collector. NPO Guidelines ?? No solid foods after midnight the day before surgery ?? Clear liquids - 4 hours (water, black coffee, clear tea ONLY) ?? Non-human milk - 6 hours ?? Breast milk - 4 hours ?? Formula - 6 hours PREOPERATIVE ASSESSMENT SUMMARY - Please include recommendations for stopping and changing medications prior to surgery. Day of surgery testing: none Medication recommendations: No medications day of surgery. RECOMMENDATIONS PROCEED WITH SURGERY: Yes Additional screening recommended: no Consult (Cardiology/other): no Additional test results attached: none ABOVE RECOMMENDATIONS WERE REVIEWED WITH PATIENT: yes Beta kenji protocol ordered: no Insulin/Diabetes orders initiated: no Continuous O2 Sat monitoring post op orders initiated: no Other: no This 31 yo male patient has been examined by me today and has been found to be a suitable candidate for surgery. No pending labs, reviewed no eating or drinking after midnight, no NSAID, or ASA. All questions answered, patient in agreement with the plan. Patient was not up to date on tetanus. Administered Tdap at visit today. documented in this encounter Plan of Treatment Not on filedocumented as of this encounter Visit Diagnoses Diagnosis Pre-op evaluation - Primary Preoperative examination, unspecified Herniated disc Displacement of intervertebral disc, sit e unspecified, without myelopathy Need for ianuwgaymw-cuxpadr-cxrooheqy (T dap) vaccine Need for prophylactic vaccination with c ombined udcwtfyhnu-wdcsjrh-dnlyrqzxf (DTP) vaccine documented in this encounter Care Teams Certified Dietary Manager Relationship Specialty Start Date End Date Robin Duncan MD PCP - General 06/03/10 10/17/[id number] [place] [address] documented as of this encounter
--- OUTSIDE RECORDS SUMMARY | 2021-12-07 20:33 | XMS_ITS | Encounter Summary ---
:1980 Author Organization [facility] Address [address] [place] [address] Care Team Providers Name Role Phone Robin Duncan MD Primary Care Provider Reason for Visit Reason Comments Provider Orders Encounter Details Date Type Department Care Team Description 12/22/2011 Notes/Orders Specialty Center [address] istory of fusion of Neurosurgery P, ACCOUNTING PRACTICE MANAGER cervical spine [facility] [facility] ([facility] Dx) [place] [address] Social History Tobacco Use Types Packs/Day Years [...] Comme nts XR CERVICAL SPINE 2 Routine 12/23/2011 8:36 AM History of fusi on of Results for this VIEWS CDT cervical spine procedure are in the results section. documented in this encounter Results XR Cervical Spine 2 Views (12/23/2011 8:36 AM CDT) Anatomical Region Laterality Modality Spine, C-Spine, Neck Other Specimen (Source) Anatomical Location Collection Method / Collectio n Time Received Time / Laterality Volume Narrative 12/23/2011 8:46 AM CDT Comparison 08/15/2011. Stable and satisfactory postoperative ap pearance anterior spinal fusion from C5-C6. ??No complications ar e identified. Procedure Note Mj Correa MD - 08/17/2015Formatti ng of this note might be different from the original. Comparison 08/15/2011. Stable and satisfactory postoperative ap pearance anterior spinal fusion from C5-C6. No complications are identified. Elke Luna PA-C RAD GD documented in this encounter Visit Diagnoses Diagnosis History of fusion of cervical spine - Pr imary Arthrodesis status documented in this encounter Care Teams Psychiatric Aides Teacher Relationship Specialty Start Date End Date Robin Duncan MD PCP - General 06/03/10 10/17/12 [address] [id number] documented as of this encounter
--- OUTSIDE RECORDS SUMMARY | 2021-12-07 20:33 | XMS_ITS | Encounter Summary ---
:1980 Author Organization [facility] Address [address] [facility] [place] [address] Care Team Providers Name Role Phone Robin Duncan MD Primary Care Provider Reason for Visit Reason Comments Other Encounter Details Date Type Department Care Team Description 08/09/2010 Telephone CONV AFTER HR NURSE [address] Center, Message Other [address] [place] [address] Social History Tobacco Use Types Packs/Day Years Used Date Smoking Tobacco: Never Alcohol Use Standard Drinks/Week Comments Not Asked 0 (1 standard drink = 0.6 oz pure alcoho l) Sex Assigned at Date Recorded Not on file documented as of this encounter Progress Notes Center, Message - 08/09/2010 5:01 PM CDT Phone Note filed by [facility] at 08/12/10 1143 Author: [facility] Service: (none) Author Type: (none) Filed: 08/12/10 1143 Note Time: 08/09/10 170 Status: Addendum Respiratory Therapy Instructor: [facility] (Resource) Related Notes: Original Note by [facility] Conversion (Physician) filed at 08/12/10 1143 Lab/Radiology Results Caller Name/Relationship: hannah, patient Primary Window Machine Operator: Dakota What test result is needed? blood work When and where was test done? 08/07 and 08/08 at [place] Who ordered the test? [employer] Air Hose Coupler: Hannah Best call back number: [phone] c Is it OK to leave a confidential message on this voicemail? yes *[id number] Created on 09Aug2010 5:01pm by MELISSA GARCIA N On 09Aug2010 5:14pm LADAN JIMENEZ Raines wrote: Patient calling for labs. Would like them mailed to him. Sent to clinic to follow up and mail out. On 10Aug2010 8:32am PATTI MARINO wrote: Please mail lab results On 10Aug2010 6:30pm ROBIN DUNCAN wrote: Not sure why this came to me. Acknowledged by ROBIN DUNCAN on 6:30pm Acknowledged by JHONNY BUI on 8:48am On 12Aug2010 9:03am CONOR PLATA wrote: Please mail the results.Thanks Acknowledged by CONOR PLATA on 9:03am On 12Aug2010 11:39am HEATHER SPAIN wrote: lab letter sent today 08-12-10 Acknowledged by HEATHER SPAIN on 11:39am [employer] documented in this encounter Plan of Treatment Not on filedocumented as of this encounter Visit Diagnoses Not on filedocumented in this encounter Care Teams Pulp Machine Operator Relationship Specialty Start Date End Date Robin Duncan MD PCP - General 06/03/10 10/17/12 [address] [place] [address] [address] documented as of this encounter
--- OUTSIDE RECORDS SUMMARY | 2021-12-07 20:33 | XMS_ITS | Encounter Summary ---
:1980 Author Organization [employer] Address [address] [place] [address] Care Team Providers Name Role Phone Robin Duncan MD Primary Care Provider Reason for Visit Reason Comments Spine Cervical Encounter Details Date Type Department Care Team Description 06/19/2011 Office Visit [facility]laly Colindres PT Cervicalgia (Primary Therapy [address] [place]) [address] [place] [address] [phone] (Wo rk) Social History Tobacco Use Types Packs/Day Years Used Date Smoking Tobacco: Never Alcohol Use Standard Drinks/Week Comments Not Asked 0 (1 standard drink = 0.6 oz pure alcoho l) Sex Assigned at Date Recorded Not on file documented as of this encounter Progress Notes Maria De Jesus Colindres, MIRELLA - 06/19/2011 12:14 PM CDT [facility] Physical Therapy Progress Note Visit Number: 4 Initial Certification Period: 06/09/2011 to 08/07/11 Referring [...] so with work and home activities. SUBJECTIVE: Has been wearing her collar most of the time except occassionally when .holding his infant daughter. OBJECTIVE: Feels increased stiffness and general muscle soreness and tightness. Standardized Functioinal Scores: Neck Disability Index: Initail -40 Today -48 Clinical Global Impression (0=excellent-10=poor) - Initial -7 Today 5 TREATMENT TODAY -Mechanical cervical traction trial 15# x15 minutes. -Soft tissue mobilization and suboccipital release 15 minutes. ASSESSMENT: MRI finding showing HNP cervical. [...] in 2 weeks. in 4 weeks. 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 Procedures: Mechanical Traction (CPT 64519). Manual therapy (CPT 23140) 15 minutes Total treatment time: 40 minutes. Therapist: Maria De Jesus Colindres, PT, 0000 documented in this encounter Plan of Treatment Not on filedocumented as of this encounter Visit Diagnoses Diagnosis Cervicalgia - Primary documented in this encounter Care Teams Hand Lens Polisher Relationship Specialty Start Date End Date Robin Duncan MD PCP - General 06/03/10 10/17/12 [address] [place] [address] [address] documented as of this encounter
--- OUTSIDE RECORDS SUMMARY | 2021-12-07 20:33 | XMS_ITS | Encounter Summary ---
:1980 Author Organization [facility] Address [address] [place] [address] Care Team Providers Name Role Phone Robin Duncan MD Primary Care Provider Encounter Details Date Type Department Care Team Description 09/25/2011 Notes/Orders Specialty Center [address] Denn[address] Deg enerative disc Neurosurgery disease, cervical [address] [facility] (Primary Dx) [place] [address] Social History Tobacco Use Types Packs/Day Years [...] Comme nts XR CERVICAL SPINE 2 Routine 09/25/2011 9:06 AM Degenerative di sc Results for this VIEWS CDT disease, cervical procedure are in the results section. documented in this encounter Results XR Cervical Spine 2 Views (09/25/2011 9:06 AM CDT) Anatomical Region Laterality Modality Spine, C-Spine, Neck Other Specimen (Source) Anatomical Location Collection Method / Collectio n Time Received Time / Laterality Volume Narrative 09/25/2011 9:26 AM CDT Comparison 08/15/2011. Satisfactory postoperative appearance an terior spinal fusion of C5-6. ?? No complications are seen. Procedure Note Mj Correa MD - 08/17/2015Formatti ng of this note might be different from the original. Comparison 08/15/2011. Satisfactory postoperative appearance an terior spinal fusion of C5-6. No complications are seen. Elke Luna PA-C RAD GD documented in this encounter Visit Diagnoses Diagnosis Degenerative disc disease, cervical ([facility] ) - Primary Degeneration of cervical intervertebral disc documented in this encounter Care Teams Glue Maker Relationship Specialty Start Date End Date Robin Duncan MD PCP - General 06/03/10 10/17/12 [address] [place] [address] [address] documented as of this encounter
--- OUTSIDE RECORDS SUMMARY | 2021-12-07 20:33 | XMS_ITS | Encounter Summary ---
:1980 Author Organization [employer] Address [address] [address] Care Team Providers Name Role Phone Robin Duncan MD Primary Care Provider Reason for Visit Reason Comments Appt. Needed Encounter Details Date Type Department Care Team Description 05/27/2012 Telephone Specialty Center [phone] Neurosurgery Samia Barton Appt. Needed [address] [place] [address] Social History Tobacco Use Types Packs/Day Years Used Date Smoking Tobacco: Never Alcohol Use Standard Drinks/Week Comments Not Asked 0 (1 standard drink = 0.6 oz pure alcoho l) Sex Assigned at Date Recorded Not on file documented as of this encounter Nursing Notes Dennise Velez - 06/03/2012 9:31 AM CDT Third message left for patient to set up appointment. Will await return phone call. Samia Malcolm - 06/01/2012 10:43 AM CDT Second message left for pt. Will await return call from pt. Samia Malcolm - 05/27/2012 2:06 PM CDT Pt due for 1 year f/u appointment with xrays prior following a cervical arthroplasty with Dr. Garcia. Left message for pt to return call. Will await return call from pt. documented in this encounter Plan of Treatment Not on filedocumented as of this encounter Visit Diagnoses Not on filedocumented in this encounter Care Teams Job Putter Up And Ticket Preparer Relationship Specialty Start Date End Date Robin Duncan MD PCP - General 06/03/10 10/17/12 [address] [address] [address] documented as of this encounter
--- OUTSIDE RECORDS SUMMARY | 2021-12-07 20:33 | XMS_ITS | Encounter Summary ---
:1980 Author Organization [facility] Address [address] [place] [address] Care Team Providers Name Role Phone Robin Duncna MD Primary Care Provider Reason for Visit Reason Comments CONSULT Encounter Details Date Type Department Care Team Description 06/13/2011 Notes/Orders [facility] Aniya Abad [address] [place] [phone] Social History Tobacco Use Types Packs/Day Years Used Date Smoking Tobacco: Never Alcohol Use Standard Drinks/Week Comments Not Asked 0 (1 standard drink = 0.6 oz pure alcoho l) Sex Assigned at Date Recorded Not on file documented as of this encounter Progress Notes Krysta Mi MA - 06/13/2011 2:59 PM CDT Made Neurosurgery CON2 appt for pt for ThursdayJune 15 at 10:30am in the [facility], 5th floor, [facility]. Called and left message for pt to call back for appt information. Yolette Southgate DA number, . documented in this encounter Plan of Treatment Not on filedocumented as of this encounter Visit Diagnoses Not on filedocumented in this encounter Care Teams Locker Plant Attendant Relationship Specialty Start Date End Date Robin Duncan MD PCP - General 06/03/10 10/17/12 [address] [place] [address] [address] documented as of this encounter
--- OUTSIDE RECORDS SUMMARY | 2021-12-07 20:33 | XMS_ITS | Encounter Summary ---
:1980 Author Organization [facility] Address [address] [place] [address] Care Team Providers Name Role Phone Robin Duncan MD Primary Care Provider Reason for Visit Reason Comments Rash Encounter Details Date Type Department Care Team Description 07/07/2012 Initial Consult Herminia Bustillos is lyle Raines MD (Primary Dx) [address] [place] [address] [place], [place] [phone] [address] Social History Tobacco Use Types Packs/Day Years Used Date Smoking Tobacco: Never Alcohol Use Standard Drinks/Week Comments Not Asked 0 (1 standard drink = 0.6 oz pure alcoho l) Sex Assigned at Date Recorded Not on file documented as of this encounter Patient Instructions Patient InstructionsGladys Acevedo MA - 07/07/2012 11:58 AM CDT DIRECT PHONE NUMBER: GLADYS [phone]. FEEL FREE TO CALL WITH ANY QUESTIONS OR CONCERNS YOU MAY HAVE. documented in this encounter Progress Notes Herminia Navas MD - 07/07/2012 12:11 PM CDT Progress Notes signed by Herminia Acevedo MD at 07/08/12 0724 Author: Herminia Acevedo MD Service: (none) Author Type: Physician Filed: 07/08/12 0724 Note Time: 07/07/12 1558 Status: Signed Coffin Maker: Herminia Acevedo MD (Physician) NAME: LORA STEWART MR#: [id number] CSN: [id number] AUTHENTICATING CLINICIAN: Herminia Navas MD CONFIRM #: [id number] LOC: 527 CLINIC PROGRESS NOTE DATE OF VISIT: 07/07/2012 : 1980 Lora is a 32-year-old gentleman here with his 3 or 4-year-old, daughter, with a rash on the trunk. Started about 4 days ago. It is now spreading to the arms. None of it really itches except 1 spot on the left upper arm. He does not know of any 1 spot that came out more than the others he is monogamous with his . He did have kind of diarrhea the day before the rash started. That is resolved. Nobody else in the house has had problems. PHYSICAL EXAMINATION: On examination, he looks healthy, appears well. He has erythematous patches, not super well-demarcated that have central facing scale over the larger ones, scattered over the trunk, a little bit. Scattered down the arms and 1 small eczematous spot on the left upper arm. A couple little spots on the low neck. Nothing on the face. Nothing on the palms or soles. He denies any rash in the groin at this point. Denies any history of penile ulcers. No sore throat. No family history of psoriasis. ASSESSMENT: Pityriasis rosea. PLAN: Gave him a brochure. Offered a syphilis test. He declined at this point. Offered steroid to bring down some of the redness. He declined. Recommended just moisturization. Very limited sun exposure may calm it down a little bit faster. Can continue to get new spots up to a couple weeks after the initiallesions, even up to 3 weeks, and then may take 6 weeks or longer to resolve completely. Gave him inside line if he has any questions or concerns, and we will go from there. VLV:ANGELA C: CONFIRM #: [id number] documented in this encounter Plan of Treatment Not on filedocumented as of this encounter Visit Diagnoses Diagnosis Pityriasis rosea - Primary documented in this encounter Care Teams Assistant Professor Of Criminal Justice Relationship Specialty Start Date End Date Robin Duncan MD PCP - General 06/03/10 10/17/12 [address] [place] [address] [address] documented as of this encounter
--- OUTSIDE RECORDS SUMMARY | 2021-12-07 20:34 | XMS_ITS | Encounter Summary ---
:1980 Author Organization [email or web address] Address [address] [place] [address] Care Team Providers Name Role Phone Robin Duncan MD Primary Care Provider Encounter Details Date Type Department Care Team Description 05/07/2009 PN Conversion Only [facility] [address] [place] [address] Social History Tobacco Use Types Packs/Day Years Used Date Smoking Tobacco: Never Alcohol Use Standard Drinks/Week Comments Not Asked 0 (1 standard drink = 0.6 oz pure alcoho l) Sex Assigned at Date Recorded Not on file documented as of this encounter Plan of Treatment Not on filedocumented as of this encounter Visit Diagnoses Not on filedocumented in this encounter Care Teams Raimann Machine Operator Relationship Specialty Start Date End Date Robin Duncan MD PCP - General 06/03/10 10/17/12 [address] [place] [address] [address] documented as of this encounter
--- OUTSIDE RECORDS SUMMARY | 2021-12-07 20:34 | XMS_ITS | Encounter Summary ---
:1980 Author Organization [facility] Address [address] [place] [address] Care Team Providers Name Role Phone Robin Duncan MD Primary Care Provider Encounter Details Date Type Department Care Team Description 02/21/2009 PN Conversion Only [place] [address] [address] [place] [address] Social History Tobacco Use Types Packs/Day Years Used Date Smoking Tobacco: Never Alcohol Use Standard Drinks/Week Comments Not Asked 0 (1 standard drink = 0.6 oz pure alcoho l) Sex Assigned at Date Recorded Not on file documented as of this encounter Plan of Treatment Not on filedocumented as of this encounter Visit Diagnoses Not on filedocumented in this encounter Care Teams Mrb Engineer Relationship Specialty Start Date End Date Robin Duncan MD PCP - General 06/03/10 10/17/[address] [place] [id number] documented as of this encounter
--- OUTSIDE RECORDS SUMMARY | 2021-12-07 20:34 | XMS_ITS | Encounter Summary ---
:1980 Author Organization [email or web address] Address [address] [place] [address] Care Team Providers Name Role Phone Robin Duncan MD Primary Care Provider Reason for Visit Reason Comments Other Encounter Details Date Type Department Care Team Description 02/14/[address] [facility] Robin Flores MD Other [address] [place] [address] [place] [address] [phone] (Wo rk) Social History Tobacco Use Types Packs/Day Years Used Date Smoking Tobacco: Never Alcohol Use Standard Drinks/Week Comments Not Asked 0 (1 standard drink = 0.6 oz pure alcoho l) Sex Assigned at Date Recorded Not on file documented as of this encounter Progress Notes Center, Message - 02/14/2009 3:50 PM CST Phone Note filed by [employer]+ at 06/21/101935 Author: [employer] Service: (none) Author Type: (none) Filed: 06/21/101935 Note Time: 02/14/09 1550 Status: Signed Regulatory Affairs Assistant: [employer]+ (Resource) Front Line Sx Call Caller Name/Relationship:hannah jimenez Primary Bus Dispatcher Interstate:[place] Symptom or request?pt is having some blood in stool, pt was seen for this on 01-02. Is appointment scheduled & when?no Circulation Man:pt Best call back number:[phone] Is it OK to leave a confidential message on this voicemail?yes *ECODE~PNSX2 Created on 14Feb2009 3:50pm by PEDRO CHAPA On 14Feb2009 4:06pm SHONA BRITT wrote: CLINICIAN FOLLOW-UP: none IMPRESSION: Rectal Bleeding. SYMPTOMS: Pt. states seen on 01/02 for rectal bleeding. Had a fissure at that time and used the cream that was ordered. Today he had another episode. States he held a BM in for a while, then when he sat on the toilet, he noted cloudy red fluid dripping out. Did pass a stool. No abdominal or rectal pain. Not lightheaded or dizzy. Pt. wondering what to do. Denies emergent symptoms Problem List: reviewed in electronic medical record. Allergies: Reviewed/updated in electronic medical record. Medications: Reviewed/updated in electronic medical record. CARE ADVICE: Referenced [facility] Adult Guideline, Rectal Bleeding. Advised pt. to be seen within 24 hours. He states he will need to go to this evening. Advised to call back if any of the following occur: symptoms worsen or persist, any other questions or concerns. PLAN: GO TO URGENT CARE Patient/Caller agrees with plan and denies additional questions. References Used: [facility] Adult Telephone Protocols--Rectal Bleeding. Call Complete. *JARED~TEOFILO~RECBLEED ~ OFFICE MARKUP CLERK documented in this encounter Plan of Treatment Not on filedocumented as of this encounter Visit Diagnoses Not on filedocumented in this encounter Care Teams Offset Press Assistant Relationship Specialty Start Date End Date Robin Duncan MD PCP - General 06/03/10 10/17/12 [address] [place] [address] documented as of this encounter
--- OUTSIDE RECORDS SUMMARY | 2021-12-07 20:34 | XMS_ITS | Encounter Summary ---
:1980 Author Organization [facility] Address [address] [place] [address] Care Team Providers Name Role Phone Robin Duncan MD Primary Care Provider Encounter Details Date Type Department Care Team Description 08/08/2010 PN Conversion Only [place], [address] [facility] [place] [address] [facility] [address] [place] [address] (Wo rk) Social History Tobacco Use Types Packs/Day Years Used Date Smoking Tobacco: Never Alcohol Use Standard Drinks/Week Comments Not Asked 0 (1 standard drink = 0.6 oz pure alcoho l) Sex Assigned at Date Recorded Not on file documented as of this encounter Plan of Treatment Not on filedocumented as of this encounter Procedures Procedure Name Priority Date/Time Associated Diagnosis Comme nts GLUCOSE Routine 08/08/2010 8:50 AM Results for this CDT procedure are i n the results section. LIPID PANEL AND Routine 08/08/2010 8:50 AM Result s for this DIRECT LDL(IF CDT procedure are in NEEDED) the results section. HGB A1C Routine 08/08/2010 8:50 AM Results f or this CDT procedure are i n the results section. ALT (SGPT) Routine 08/08/2010 8:50 AM Results f or this CDT procedure are i n the results section. AST Routine 08/08/2010 8:50 AM Results f or this CDT procedure are i n the results section. documented in this encounter Results Hgb A1c (08/08/2010 8:50 AM CDT) P athologist Signature HGB A1C 4.9 0.0 - 6.0 % HP CONVERSION Specimen (Source) Anatomical Collection Method Collection Time Re ceived Time Location / / Volume Laterality 08/08/2010 8:50 AM CDT [place] MD LAB_1 Performing Organization Address City/State/ZIP Code Phon e Number HP CONVERSION Lipid Panel and Direct LDL(If Needed) (08/08/2010 8:50 AM CDT) [facility] gist Method Time Signature Cholesterol 156 0 - 200 HP CONVERSION mg/dL Triglycerides 55 0 - 149 HP CONVERSION mg/dL HDL Cholesterol 59 >39 mg/dL HP CONVERSION Cholesterol/HDL 2.6 No normal HP CONVERSION Ratio Screen range LDL Calculated 86 19 - 130 HP CONVERSION mg/dL Length Of Fast 12 No normal HP CONVERSION range Specimen (Source) Anatomical Collection Method Collection Time Re ceived Time Location / / Volume Laterality 08/08/2010 8:50 AM CDT [place] MD LAB_1 Performing Organization Address City/[facility]/ZIP Code Phon e Number HP CONVERSION (ABNORMAL) GLUCOSE (08/08/2010 8:50 AM CDT) athologist Signature Lab Glucose 114 (H) 60 - 100 HP CONVERSION mg/dL Specimen (Source) Anatomical Collection Method Collection Time Re ceived Time Location / / Volume Laterality 08/08/2010 8:50 AM CDT [place] MD LAB_1 Performing Organization Address City/[facility]/ZIP Code Phon e Number HP CONVERSION AST (08/08/2010 8:50 AM CDT) [facility] gist Method Time Signature Aspartate 20 0 - 45 HP CONVERSION Aminotransferase U/L Specimen (Source) Anatomical Collection Method Collection Time Re ceived Time Location / / Volume Laterality 08/08/2010 8:50 AM CDT [place] MD LAB_1 Performing Organization Address City/[facility]/ZIP Code Phon e Number HP CONVERSION ALT (SGPT) (08/08/2010 8:50 AM CDT) [facility] gist Method Time Signature Alanine 22 4 - 55 HP CONVERSION Aminotransferase U/L Specimen (Source) Anatomical Collection Method Collection Time Re ceived Time Location / / Volume Laterality 08/08/2010 8:50 AM CDT [place] MD LAB_1 Performing Organization Address City/State/ZIP Code Phon e Number HP CONVERSION documented in this encounter Visit Diagnoses Not on filedocumented in this encounter Care Teams Computer Discovery Teacher Relationship Specialty Start Date End Date Robin Duncan MD PCP - General 06/03/10 10/17/12 [address] [place] [address] documented as of this encounter
--- OUTSIDE RECORDS SUMMARY | 2021-12-07 20:34 | XMS_ITS | Encounter Summary ---
:1980 Author Organization [facility] Address [address] [place] [address] Care Team Providers Name Role Phone Md NATHANIEL Boateng Primary Care Provider Encounter Details Date Type Department Care Team Description 03/06/2009 Notes/Orders CONVERSION CONVERSION Conversion , User [place] [address] Social History Tobacco Use Types Packs/Day Years Used Date Smoking Tobacco: Never Alcohol Use Standard Drinks/Week Comments Not Asked 0 (1 standard drink = 0.6 oz pure alcoho l) Sex Assigned at Date Recorded Not on file documented as of this encounter Plan of Treatment Not on filedocumented as of this encounter Procedures Procedure Name Priority Date/Time Associated Diagnosis Comme nts ENDOSCOPY, SIGMOID Routine 03/06/2009 6:21 PM COMPLIANCE MONITOR documented in this encounter Results Endoscopy, sigmoid (03/06/2009 6:21 PM COMPLIANCE MONITOR) Specimen (Source) Anatomical Location Collection Method / Collectio n Time Received Time / Laterality Volume User Conversion PN GI PROCEDURE ORDERABLES Performing Organization Address City/State/ZIP Code Phon e Number HP CONVERSION documented in this encounter Visit Diagnoses Not on filedocumented in this encounter Care Teams Hand Spinner Relationship Specialty Start Date End Date Md Boateng MD PCP - General 10/18/12 [place] [address] documented as of this encounter
--- OUTSIDE RECORDS SUMMARY | 2021-12-07 20:34 | XMS_ITS | Encounter Summary ---
:1980 Author Organization [employer] Address [address] [facility] [place] [address] Care Team Providers Name Role Phone Robin Duncan MD Primary Care Provider Encounter Details Date Type Department Care Team Description 08/29/2009 Office Visit [facility] [place] [address] [place] [address] [place] [address] [phone] Social History Tobacco Use Types Packs/Day Years Used Date Smoking Tobacco: Never Alcohol Use Standard Drinks/Week Comments Not Asked 0 (1 standard drink = 0.6 oz pure alcoho l) Sex Assigned at Date Recorded Not on file documented as of this encounter Last Filed Vital Signs Vital Sign Reading Time Taken Comments Blood Pressure 107/62 08/29/2009 11:19 AM CDT Pulse 77 08/29/2009 11:19 AM CDT Temperature 36.8 ??C (98.2 ??F) 08/29/2009 11:19 AM ORAL C: 36.8 C CDT Respiratory Rate 16 08/29/2009 11:19 AM CDT Oxygen Saturation - - Inhaled Oxygen Concentration - - Weight 75.8 kg (167 lb 3.2 08/29/2009 11:19 AM C: 75.8k g oz) CDT Height - - Body Mass Index 22.21 08/22/2005 4:15 PM CDT documented in this encounter Progress Notes Perico Portillo MD - 08/29/2009 12:01 AM CDT Progress Notes signed by Perico Portillo MD at 09/14/09 1834 Author: Perico Portillo MD Service: (none) Author Type: Physician Filed: 06/22/10 2329 Note Time: 08/29/09 0001 Status: Signed Supervisor Record Press: Perico Portillo MD (Physician) NAME: LORA STEWART MR#: [id number] ACCT: [id number] VISIT: [id number] DICTATING CLINICIAN: Perico Portillo MD CONFIRM #: [id number] LOC: 520 CLINIC PROGRESS NOTE DATE OF VISIT: 08/29/2009 SUBJECTIVE: This 29-year-old, having a very sore throat for over 3 days, much worse in the last day. Some difficulty with increased pain on the right side, but he is able to swallow, but prefers liquids, solids more painful. Denies high fevers, sweats, chills. Denies any significant infectious exposure. 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 OBJECTIVE: VS: BP: 107/62. T: 98. P: 77. R: 16. HEENT: Exam reveals clear conjunctiva. Tympanic membranes very slightly retracted. Nasal mucosa clear. Sinuses open and dry. Throat 1+ inflamed tonsillar tissue, left larger than the right. NECK: Supple with a few tender nodes, especially on the right side, very small. LUNGS: Lung stewart clear. SKIN: Without rash. Rapid strep test negative. ASSESSMENT: Viral pharyngitis. PLAN: Symptom control. TEL:[id number] C: 08/30/09 07:03 CONFIRM #: [id number] documented in this encounter Plan of Treatment Not on filedocumented as of this encounter Visit Diagnoses Not on filedocumented in this encounter Care Teams Regional Marketing Manager Relationship Specialty Start Date End Date Robin Duncan MD PCP - General 06/03/10 10/17/12 [address] [address] documented as of this encounter
--- OUTSIDE RECORDS SUMMARY | 2021-12-07 20:34 | XMS_ITS | Encounter Summary ---
:1980 Author Organization [facility] Address [address] [place] [address] Care Team Providers Name Role Phone Robin Duncan MD Primary Care Provider Encounter Details Date Type Department Care Team Description 02/14/2009 PN Conversion Only [place] N Efrain Verdugo, [address] [facility] [place] [address] [place] [address] [place] [phone] (Wo rk) Social History Tobacco [...] Name Priority Date/Time Associated Diagnosis Comme nts COMPLETE BLOOD Routine 02/14/2009 6:18 PM Results for this COUNT-W/DIFF COLLAR FOLDER OPERATOR procedure are i n the results section. documented in this encounter Results (ABNORMAL) Hemogram/Plts/Diff (02/14/2009 6:18 PM COLLAR FOLDER OPERATOR) [facility] Method Time Signature White Blood Cell 7.0 3.8 - 11.0 HP CONVERSIO N Count k/cmm Red Blood Cell 5.20 4.20 - HP CONVERSION Count 5.90 m/cmm Hemoglobin 15.8 13.4 - HP CONVERSION 17.5 gm/dL Hematocrit 46.7 39.0 - HP CONVERSION 51.0 % Mean Corpuscular 89.7 80.0 - HP CONVERSION Volume 100.0 fl Mean Corpuscular 30.4 27.0 - HP CONVERSION Hemoglobin 34.0 pg Mean Corpuscular 33.8 32.0 - HP CONVERSION Hemoglobin Conc 36.5 gm/dL [place] RDW 12.1 11.0 - HP CONVERSION 15.0 % Platelet Count 292 140 - 450 HP CONVERSION k/cmm Differential Auto-Dif No normal HP CONVERSION Verify range Neutrophils 3.5 2.0 - 7.5 HP CONVERSION Absolute Count k/cmm Neutrophil 48.7 (L) 50.0 - HP CONVERSION 75.0 % Lymphocyte % 34.5 20.0 - HP CONVERSION 40.0 % Monocyte 12.9 5.0 - 14.0 HP CONVERSION % Eosinophil 3.3 0.0 - 6.0 HP CONVERSION % Basophil % 0.6 0.0 - 2.0 HP CONVERSION % Specimen (Source) Anatomical Collection Method Collection Time Re ceived Time Location / / Volume Laterality 02/14/2009 6:18 PM COLLAR FOLDER OPERATOR Efrain Verdugo PA-C LAB_1 Performing Organization Address City/State/ZIP Code Phon e Number HP CONVERSION documented in this encounter Visit Diagnoses Not on filedocumented in this encounter Care Teams Telephone Cleaner Relationship Specialty Start Date End Date Robin Duncan MD PCP - General 06/03/10 10/17/12 [address] [place] [address] documented as of this encounter
--- OUTSIDE RECORDS SUMMARY | 2021-12-07 20:34 | XMS_ITS | Encounter Summary ---
:1980 Author Organization [employer] Address [address] [facility] [place] [address] Care Team Providers Name Role Phone Robin Duncan MD Primary Care Provider Encounter Details Date Type Department Care Team Description 08/13/2009 Office Visit [facility] Efrain Verdugo PA-C [address] [place] [address] [place] [address] [phone] (Wo rk) Social History Tobacco Use Types Packs/Day Years Used Date Smoking Tobacco: Never Alcohol Use Standard Drinks/Week Comments Not Asked 0 (1 standard drink = 0.6 oz pure alcoho l) Sex Assigned at Date Recorded Not on file documented as of this encounter Last Filed Vital Signs Vital Sign Reading Time Taken Comments Blood Pressure 114/76 08/13/2009 3:12 PM CDT Pulse 74 08/13/2009 3:12 PM CDT Temperature 36.8 ??C (98.2 ??F) 08/13/2009 3:12 PM ORAL C: 3 6.8 C CDT Respiratory Rate 20 08/13/2009 3:12 PM CDT Oxygen Saturation 99% 08/13/2009 3:12 PM CDT Inhaled Oxygen Concentration - - Weight - - Height - - Body Mass Index - - documented in this encounter Progress Notes Efrain Verdugo PA-C - 08/13/2009 12:01 AM CDT Progress Notes signed by Efrain Verdugo PA-C at 08/13/09 1630 Author: Efrain Verdugo PA-C Service: (none) Author Type: Physician Metal Alloy Scientist Filed: 06/22/10 6055 Note Time: 08/13/09 0001 Status: Signed Medical Driver: Efrain Verdugo PA-C (Resource) SUBJECTIVE: Augustus is a 29-year-old male presenting to urgent care for evaluation of ear pressure and two days of sinus pressure. He also describes a sore throat and postnasal drainage. No fever. No facial swelling. No vision changes. No No sacrum. He has a history of occasional sinus infections. Social history: No recent travel See EMR Past Medical History: Occasional sinusitis See EMR. Tobacco use : Smoker See EMR. Adverse Drug Reactions : NKDA See EMR. Medications: Reviewed. See Medication List in LastWord. OBJECTIVE: Vital Signs : Reviewed; See Flowsheet Charting in LastWord. Temperature: 98.2 General: Appears well and in NAD. Skin: MMM Nose: Very congested with purulent discharge. Sinuses: The frontal sinuses are tender to percussion. No obvious swelling. Ears: Canals and TM's normal without lesions. Pharynx: Moist mucous membranes without lesions, erythema, or exudate, with purulent postnasal drainage. Neck: Supple, without masses, lymphadenopathy or tenderness. Respiratory: Normal respiratory effort. Lungs are clear with good breath sounds. ASSESSMENT: URI/sinus congestion. PLAN: We discussed the fact that I think it is too early to try antibiotics at this point, but I did recommend Mucinex as well as 3-4 days of Afrin. He should watch closely over the next several days and return if symptoms persist or worsen. Sinus irrigation was discussed. Decrease dairy products while congested. Hot shower prior to bed time. RTC PRN if not gradually improving. The patient was discharged ambulatory and in stable condition. *SH~DNS~Sinusitis documented in this encounter Plan of Treatment Not on filedocumented as of this encounter Visit Diagnoses Not on filedocumented in this encounter Care Teams Core Stripper Relationship Specialty Start Date End Date Robin Duncan MD PCP - General 06/03/10 10/17/[address] [place] [address] documented as of this encounter
--- OUTSIDE RECORDS SUMMARY | 2021-12-07 20:34 | XMS_ITS | Encounter Summary ---
:1980 Author Organization [facility] Address [address] [place] [address] Care Team Providers Name Role Phone Robin Duncan MD Primary Care Provider Encounter Details Date Type Department Care Team Description 01/02/2009 PN Conversion Only [place], [address] [place] [address] [address] [facility] [address] [place] [phone] (Wo rk) Social History Tobacco [...] Associated Diagnosis Comme nts COMPLETE BLOOD Routine 01/02/2009 11:42 AM Result s for this COUNT-W/DIFF ROLL OPERATOR procedure are i n the results section. documented in this encounter Results Hemogram/Plts/Diff (01/02/2009 11:42 AM ROLL OPERATOR) [facility] Method Time Signature White Blood Cell 6.5 3.8 - 11.0 HP CONVERSIO N Count k/cmm Red Blood Cell 5.29 4.20 - HP CONVERSION Count 5.90 m/cmm Hemoglobin 16.3 13.4 - HP CONVERSION 17.5 gm/dL Hematocrit 46.7 39.0 - HP CONVERSION 51.0 % Mean Corpuscular 88.3 80.0 - HP CONVERSION Volume 100.0 fl Mean Corpuscular 30.9 27.0 - HP CONVERSION Hemoglobin 34.0 pg Mean Corpuscular 35.0 32.0 - HP CONVERSION Hemoglobin Conc 36.5 gm/dL [place] RDW 12.1 11.0 - HP CONVERSION 15.0 % Platelet Count 309 140 - 450 HP CONVERSION k/cmm Differential Auto-Dif No normal HP CONVERSION Verify range Neutrophils 3.9 2.0 - 7.5 HP CONVERSION Absolute Count k/cmm Neutrophil 60.3 50.0 - HP CONVERSION 75.0 % Lymphocyte % 27.4 20.0 - HP CONVERSION 40.0 % Monocyte 9.9 5.0 - 14.0 HP CONVERSION % Eosinophil 1.6 0.0 - 6.0 HP CONVERSION % Basophil % 0.8 0.0 - 2.0 HP CONVERSION % Specimen (Source) Anatomical Collection Method Collection Time Re ceived Time Location / / Volume Laterality 01/02/2009 11:42 AM ROLL OPERATOR [place] MD LAB_1 Performing Organization Address City/State/ZIP Code Phon e Number HP CONVERSION documented in this encounter Visit Diagnoses Not on filedocumented in this encounter Care Teams Chain Hooker Relationship Specialty Start Date End Date Robin Duncan MD PCP - General 06/03/10 10/17/12 [address] [address] [place] [address] documented as of this encounter
--- OUTSIDE RECORDS SUMMARY | 2021-12-07 20:34 | XMS_ITS | Encounter Summary ---
:1980 Author Organization [facility] Address [address] [place] [address] Care Team Providers Name Role Phone Robin Duncan MD Primary Care Provider Encounter Details Date Type Department Care Team Description 08/29/2009 PN Conversion Only [place] [address] [place] [address] [place] [address] Social History Tobacco Use Types Packs/Day Years Used Date Smoking Tobacco: Never Alcohol Use Standard Drinks/Week Comments Not Asked 0 (1 standard drink = 0.6 oz pure alcoho l) Sex Assigned at Date Recorded Not on file documented as of this encounter Plan of Treatment Not on filedocumented as of this encounter Procedures Procedure Name Priority Date/Time Associated Diagnosis Comme nts STREP GROUP A Routine 08/29/2009 1:16 PM Results for this ANTIGEN TEST CDT procedure are i n the results section. BETA STREP FOLLOWUP Routine 08/29/2009 1:16 PM Re sults for this CDT procedure are i n the results section. documented in this encounter Results Strep Group A Antigen Test (08/29/2009 1:16 PM CDT) [facility] Group A SEE TEXT HP CONVERSION Antigen Test Comment: RSS Rapid Strep Screen ? ORDERED BY: PERICO PORTILLO SOURCE: Throat ? COLLECTED: ??08/29/09 13:16 ? PLATED: ? 08/29/09 13:16 Rapid Strep Screen ? FINAL ? 08/29/09 13:32 ??Test performed by:RC ? Negative for Streptococcus group A Specimen (Source) Anatomical Collection Method Collection Time Re ceived Time Location / / Volume Laterality 08/29/2009 1:16 PM CDT Perico Portillo MD LAB_1 Performing Organization Address City/[facility] Code Phon e Number HP CONVERSION Beta Strep Followup (08/29/2009 1:16 PM CDT) athologist Signature Strep Screen SEE TEXT HP CONVERSION Comment: [facility] Culture Strep, Follow up from Rapid Test ? ORDERED BY: PERICO PORTILLO SOURCE: Throat ? COLLECTED: ??08/29/09 13:16 ? PLATED: ? 08/29/09 13:17 Culture Strep, Follow up from Rapid Test ?? FINAL ? 08/30/09 13:23 No beta hemolytic Strep Group A isolate d. Specimen (Source) Anatomical Collection Method Collection Time Re ceived Time Location / / Volume Laterality 08/29/2009 1:16 PM CDT Perico Portillo MD LAB_1 Performing Organization Address City/State/[facility] Code Phon e Number HP CONVERSION documented in this encounter Visit Diagnoses Not on filedocumented in this encounter Care Teams Inspection Manager Relationship Specialty Start Date End Date Robin Duncan MD PCP - General 06/03/10 10/17/12 [address] [address] [place] [address] documented as of this encounter
--- OUTSIDE RECORDS SUMMARY | 2021-12-07 20:34 | XMS_ITS | Encounter Summary ---
:1980 Author Organization [facility] Address [address] [place] [address] Care Team Providers Name Role Phone Robin Duncan MD Primary Care Provider Encounter Details Date Type Department Care Team Description 05/06/2010 Office Visit [facility] Efrain Verdugo PA-C [address] [place] [address] [place] [address] [phone] (Wo rk) Social History Tobacco Use Types Packs/Day Years Used Date Smoking Tobacco: Never Alcohol Use Standard Drinks/Week Comments Not Asked 0 (1 standard drink = 0.6 oz pure alcoho l) Sex Assigned at Date Recorded Not on file documented as of this encounter Last Filed Vital Signs Vital Sign Reading Time Taken Comments Blood Pressure 100/64 05/06/2010 6:51 PM EXPORT SALES ASSISTANT Pulse 84 05/06/2010 6:51 PM EXPORT SALES ASSISTANT Temperature 36.9 ??C (98.4 ??F) 05/06/2010 6:51 PM ORAL C: 3 6.9 C EXPORT SALES ASSISTANT Respiratory Rate 16 05/06/2010 6:51 PM EXPORT SALES ASSISTANT Oxygen Saturation 97% 05/06/2010 6:51 PM C: Oximeter Spot EXPORT SALES ASSISTANT Check([facility]) Inhaled Oxygen - - Concentration Weight - - Height - - Body Mass Index - - documented in this encounter Progress Notes Efrain Verdugo PA-C - 05/06/2010 12:01 AM CST SUBJECTIVE: Augustus is a 30-year-old male presenting to urgent care for evaluation of cough. Symptoms started 2 weeks ago. He describes some mild ear pressure, sore throat, and notes some rib pain after coughing. No shortness of breath. Sleeping okay. Past Medical History: See EMR Adverse Drug Reactions: NKDA See EMR Medications: Reviewed. See Medication List in LastWord. Family History: See EMR Social History: See EMR Marital Status: See EMR Smoking: Smoker Alcohol: Review of Systems: All systems were reviewed and found to be negative except as noted below. OBJECTIVE: General: NAD Skin: Mucous membranes are moist, no sign of dehydration. Head: Normocephalic. Eyes: PERRLA, full EOM. External exams normal. Ears: Normal pinnae, canals, and TM's. Nose: Patent, without deformity, but with some rhinorrhea. Throat: Voice is slightly hoarse. Postnasal drainage noted. Moist mucous membranes without lesions, erythema, or exudate. Neck :Supple. Respiratory: Normal respiratory effort. Bilateral mild rhonchi. Mild expiratory wheezing. No rales. Heart: RR without murmurs, rubs, or gallops. Vital Signs: Temperature: 98.5 O2 sat: 97 Respirations: 16 Reviewed in flowsheet charting of LastWord. X-Rays: Labs: ASSESSMENT: 1. Bronchospasm 2. Bronchitis PLAN: Z-Stefan. Ventolin inhaler 2 puffs every 4-6 hours over the next 5-7 days with spacer. Prednisone 20 mg b.i.d. for 5 days. Tobacco cessation recommended. He may have access to a home nebulizer unit and so albuterol solution for nebulization was prescribed to use at home when possible. Side effects were discussed. Increase clear fluid intake. Symptomatic care, plenty of fluids, monitor for fever, chills, chest pain, or shortness of breath. RTC p.r.n. *SH~DNS~SOAP1 RT SALES ASSISTANT documented in this encounter Plan of Treatment Not on filedocumented as of this encounter Visit Diagnoses Not on filedocumented in this encounter Care Teams Plant Security Guard Relationship Specialty Start Date End Date Robin Duncan MD PCP - General 06/03/10 10/17/[id number] [place] [address] [place] [address] documented as of this encounter
--- OUTSIDE RECORDS SUMMARY | 2021-12-07 20:34 | XMS_ITS | Encounter Summary ---
:1980 [facility] Address [address] [place] [address] Care Team Providers Name Role Phone Robin Duncan MD Primary Care Provider Encounter Details Date Type Department Care Team Description 12/20/2009 PN Conversion Only LABORATORY TECHNOLOGY TEACHER [address] [place] [address] Social History Tobacco Use Types Packs/Day Years Used Date Smoking Tobacco: Never Alcohol Use Standard Drinks/Week Comments Not Asked 0 (1 standard drink = 0.6 oz pure alcoho l) Sex Assigned at Date Recorded Not on file documented as of this encounter Plan of Treatment Not on filedocumented as of this encounter Visit Diagnoses Not on filedocumented in this encounter Care Teams Saw Runner Relationship Specialty Start Date End Date Robin Duncan MD PCP - General 06/03/10 10/17/12 [address] [address] [place] [address] documented as of this encounter
--- OUTSIDE RECORDS SUMMARY | 2021-12-07 20:34 | XMS_ITS | Encounter Summary ---
:1980 Author [facility] Address [address] [facility] [place] [address] Care Team Providers Name Role Phone Robin Duncan MD Primary Care Provider Encounter Details Date Type Department Care Team Description 08/07/2010 Office Visit [facility] [place] [address] [place] [address] [place] [address] [phone] (Wo rk) Social History Tobacco Use Types Packs/Day Years Used Date Smoking Tobacco: Never Alcohol Use Standard Drinks/Week Comments Not Asked 0 (1 standard drink = 0.6 oz pure alcoho l) Sex Assigned at Date Recorded Not on file documented as of this encounter Progress Notes Ibis Plata MD - 08/07/2010 12:01 AM CDT H&P signed by Ibis Plata MD at 08/14/10 1259 Author: Ibis Plata MD Service: (none) Author Type: Physician Filed: 08/14/10 1303 Note Time: 08/07/10 0001 Status: Signed Scarf And Anneal Operator: Ibis Plata MD (Physician) NAME: LORA STEWART MR#: [id number] ACCT: [id number] VISIT: [id number] DICTATING CLINICIAN: Ibis Plata MD CONFIRM #: [id number] LOC: 502 CLINIC PHYSICAL DATE OF VISIT: 08/07/2010 : 1980 CHIEF COMPLAINT: Complete physical. HISTORY OF PRESENT ILLNESS: Lora is a 30-year-old gentleman who today came in for a complete physical. According to the patient, he has been fine. He wants to check for STDs. He does have unprotected intercourse with more than 1 partner but currently he has been asymptomatic. He does not have any history of STDs in the past. PAST MEDICAL HISTORY: Some anxiety, social phobia, ADHD inattentive type and cocaine abuse in remission. Patient has been followed by psychiatrist. MEDICATIONS: Lorazepam p.r.n., Adderall. ALLERGIES: NKDA. SOCIAL HISTORY: Patient is single, one child. Patient does smoke 1 pack per day. Not ready to quit. Patient occasionally drinks alcohol. No illicit drug use. He is working. FAMILY HISTORY: Not remarkable. HOSPITALIZATIONS: None. FRACTURES: History of left wrist fracture. HABITS: Patient does exercise every day. SURGEON: None. IMMUNIZATIONS: Received a tetanus booster in 2007. OBJECTIVE: Blood pressure is 114/68. Pulse is 60. Weight is 165 pounds. Height is 72- 1/2 inches. GENERAL: Patient is comfortable, in no acute distress. HEENT: Unremarkable. Neck: Supple. Cardiovascular System: S1 and S2. Regular. Lungs: Clear to auscultation bilaterally. Abdomen: Soft, nondistended, nontender. Positive bowel sounds. Extremities: No edema. Neuro: No focal findings. Skin: No rashes present. Genital: Testicular exam has been normal. No penile lesion is present. Rectal: No masses appreciated. ASSESSMENT/PLAN: 1. Health care maintenance. Patient has been recommended to do regular exercises and eat well-balanced diet. I am going to check for the patient fractionated cholesterol, fasting blood sugar and hemoglobin A1c. Tetanus is up to date. 2. Sexually transmitted disease check. Will check GC, Chlamydia, HIV, hepatitis B, hepatitis C, syphilis. 3. Anxiety and attention deficit hyperactivity disorder. Patient has been followed by the psychiatrist. SS:ANGELA C: CONFIRM #: [id number] documented in this encounter Plan of Treatment Not on filedocumented as of this encounter Visit Diagnoses Not on filedocumented in this encounter Care Teams Preventive Maintenance Coordinator Relationship Specialty Start Date End Date Robin Duncan MD PCP - General 06/03/10 10/17/12 [address] [place] [address] documented as of this encounter
--- OUTSIDE RECORDS SUMMARY | 2021-12-07 20:34 | XMS_ITS | Encounter Summary ---
:1980 Author Organization [facility] Address [address] [place] [address] Care Team Providers Name Role Phone Robin Duncan MD Primary Care Provider Reason for Visit Reason Comments Other Encounter Details Date Type Department Care Team Description 03/05/2009 Telephone [facility], Message Other [address] [place] [address] Social History Tobacco Use Types Packs/Day Years Used Date Smoking Tobacco: Never Alcohol Use Standard Drinks/Week Comments Not Asked 0 (1 standard drink = 0.6 oz pure alcoho l) Sex Assigned at Date Recorded Not on file documented as of this encounter Progress Notes Center, Message - 03/05/2009 12:13 PM CST Phone Note filed by [employer] at 06/21/102042 Author: [employer] Service: (none) Author Type: (none) Filed: 06/21/102042 Note Time: 03/05/091212 Status: Signed House Admin: [employer] (Resource) Non -Symptom Message from Front Line Caller Name/Relationship:Augustus/tony Primary Skydiving Instructor:Dr. Robin Duncan Message:Patient states he does not have the paperwork with instructions on how to prep for flexsig appt. tomorrow. Patient requests a return call to discuss. Operations Executive:Augustus/tony Best call back number:[phone] cell Is it OK to leave a confidential message on this voicemail?yes *ECODE~[id number] Created on 05Mar2009 12:13pm by TARIK RAMIREZ On 05Mar2009 12:32pm ALYSSA CAMPOS wrote: He will call for instructions:[phone] INE TOOL MECHANIC documented in this encounter Plan of Treatment Not on filedocumented as of this encounter Visit Diagnoses Not on filedocumented in this encounter Care Teams Laborer Vegetable Farm Relationship Specialty Start Date End Date Robin Duncan MD PCP - General 06/03/10 10/17/12 [address] [address] [address] documented as of this encounter
--- OUTSIDE RECORDS SUMMARY | 2021-12-07 20:34 | XMS_ITS | Encounter Summary ---
:1980 Author Organization [facility] Address [address] [place] [address] Care Team Providers Name Role Phone Robin Duncan MD Primary Care Provider Encounter Details Date Type Department Care Team Description 07/04/2009 Office Visit [facility] [place] [address] [facility] [address] [place] [address] [place] [address] [phone] Social History Tobacco Use Types Packs/Day Years Used Date Smoking Tobacco: Never Alcohol Use Standard Drinks/Week Comments Not Asked 0 (1 standard drink = 0.6 oz pure alcoho l) Sex Assigned at Date Recorded Not on file documented as of this encounter Last Filed Vital Signs Vital Sign Reading Time Taken Comments Blood Pressure 118/66 07/04/2009 4:36 PM CDT Pulse 86 07/04/2009 4:36 PM CDT Temperature 36.9 ??C (98.4 ??F) 07/04/2009 4:36 PM ORAL C: 3 6.9 C CDT Respiratory Rate 20 07/04/2009 4:36 PM CDT Oxygen Saturation - - Inhaled Oxygen Concentration - - Weight - - Height - - Body Mass Index - - documented in this encounter Progress Notes Ramon Cedillo MD - 07/04/2009 12:01 AM CDT Progress Notes signed by Ramon Cedillo MD at 07/12/09 1527 Author: Ramon Cedillo MD Service: (none) Author Type: Physician Filed: 06/22/10 2206 Note Time: 07/04/09 0001 Status: Signed Towel Cabinet Repairer: Ramon Cedillo MD (Physician) NAME: LORA STEWART MR#: [id number] ACCT: [id number] VISIT: [id number] DICTATING CLINICIAN: Ramon Cedillo MD CONFIRM #: [id number] LOC: 520 CLINIC PROGRESS NOTE DATE OF VISIT: 07/04/2009 SUBJECTIVE: 29-year-old male is noting back aching and stiffness all away from the low back up to the neck area. He has had some pain more on the left side of the neck with tight muscles. His has been massaging that and pressing on it. Has not made any improvement. 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 He had an injury about 4 or 5 years ago, resulting in the back pain problem. He received therapy for as much as 6 months. No surgeries performed. ADR/ALLERGIES: NONE. MEDICATIONS: Reviewed and updated in LastWord. SOCIAL HISTORY: He smokes cigarettes. He is here with a young child today. REVIEW OF SYSTEMS: Denies any loss of urine or stool control. No pain down into the legs or arms. OBJECTIVE: VS: BP: 118/66. T: 98.5. P: 86. R: 20. Pain scale 7/10. In the standing position, there is no obvious scoliosis. He has no asymmetry of SI movement with flexion. There is some mild tenderness in his left SI joint and at the lumbosacral junction. Also tender in the cervicothoracic junction area. Notes no compressive type symptoms. Negative straight leg raising at 60 degrees bilaterally. DTRs are brisk and symmetric at patella and Achilles. EHL was strong. The neck has tight trapezius, more on the left side. Nontender to palpate along the cervical spine. No neurologic deficit or weakness in the upper extremities. ASSESSMENT: 1. Low back pain. 2. Neck pain. 3. Muscle spasms. PLAN: Do not find any evidence for nerve root impingement or acute abnormalities. We have suggested some stretching measures for the neck with a neck ribbon tier's manual provided. He preferred to do this on his own versus therapy right now. We have prescribed Flexeril 10 mg, #41, t.i.d. p.r.n. muscle spasm and pain. Cautioned regarding sedative properties. Will start, Anaprox DS 1 b.i.d. with food for joint aches and stiffness. If not improving or more symptoms develop, then recheck with doctor. [id number] C: 07/05/09 14:37 CONFIRM #: [id number] documented in this encounter Plan of Treatment Not on filedocumented as of this encounter Visit Diagnoses Not on filedocumented in this encounter Care Teams Grab Setter Relationship Specialty Start Date End Date Robin Duncan MD PCP - General 06/03/10 10/17/12 [address] [place] [id number] documented as of this encounter
--- OUTSIDE RECORDS SUMMARY | 2021-12-07 20:34 | XMS_ITS | Encounter Summary ---
:1980 Author Organization [facility] Address [address] [place] [address] Care Team Providers Name Role Phone Robin Duncan MD Primary Care Provider Encounter Details Date Type Department Care Team Description 11/13/2009 PN Conversion Only RAMP BOSS [address] [place] [address] Social History Tobacco Use Types Packs/Day Years Used Date Smoking Tobacco: Never Alcohol Use Standard Drinks/Week Comments Not Asked 0 (1 standard drink = 0.6 oz pure alcoho l) Sex Assigned at Date Recorded Not on file documented as of this encounter Plan of Treatment Not on filedocumented as of this encounter Visit Diagnoses Not on filedocumented in this encounter Care Teams Aquaculture Farmer Relationship Specialty Start Date End Date Robin Duncan MD PCP - General 06/03/10 10/17/12 [address] [place] [address] documented as of this encounter
--- OUTSIDE RECORDS SUMMARY | 2021-12-07 20:34 | XMS_ITS | Encounter Summary ---
:1980 Author [facility] Address [address] [place] [address] Care Team Providers Name Role Phone Robin Duncan MD Primary Care Provider Encounter Details Date Type Department Care Team Description 03/06/2009 Procedure Visit [facility] [address] [facility] [address] [place] [address] Social History Tobacco Use Types Packs/Day Years Used Date Smoking Tobacco: Never Alcohol Use Standard Drinks/Week Comments Not Asked 0 (1 standard drink = 0.6 oz pure alcoho l) Sex Assigned at Date Recorded Not on file documented as of this encounter Progress Notes Omar Kwan MD - 03/06/2009 12:01 AM CST Procedures signed by Omar Kwan MD at 03/06/09 1156 Author: Omar Kwan MD Service: (none) Author Type: Physician Filed: 06/22/10 1906 Note Time: 03/06/09 0001 Status: Signed Highway Research Engineer: Omar Kwan MD (Physician) NAME: LORA STEWART MR#: [id number] ACCT: [id number] VISIT: [id number] DICTATING CLINICIAN: OMAR KWAN MD CONFIRM #: [id number] LOC: 491 CLINIC PROCEDURE REPORT DATE OF VISIT: 03/06/2009 SUBJECTIVE: PROBLEM: Flexible sigmoidoscopy for evaluation of bright red rectal bleeding. Lora sent in by Dr. Plata for evaluation of bright red rectal bleeding. Please refer to her dictation 02/26. He has had bright red rectal bleeding on a couple of occasions, and this has occurred without any anal discomfort. He denies constipation. He described the blood as fairly copious at times, or on 1 occasion at least. He was diagnosed in the past with anal fissures, but he is quite sure that is not occurring now as there is no discomfort. He had a CBC checked through Urgent Care on 02/14 which was fine. OBJECTIVE: On examination of the anal area externally no hemorrhoids are identified, no palpable fissuring on digital anal examination. Flexible sigmoidoscopy was completed to 70 cm and included retroversion. No abnormalities were identified. ASSESSMENT: Unremarkable flexible sigmoidoscopy for evaluation of painless bright red rectal bleeding, likely due to internal hemorrhoids that are not evident on today's examination. PLAN: Air-contrast barium enema to complete the evaluation. If that is negative, we discussed treatment of internal hemorrhoids, and I reassured him that there is nothing serious that appears to be going on, at least with this part of the evaluation. [id number] C: 03/06/09 11:32 CONFIRM #: [id number] TAL CONTENT PRODUCER documented in this encounter Plan of Treatment Not on filedocumented as of this encounter Visit Diagnoses Not on filedocumented in this encounter Care Teams Safety Compliance Specialist Relationship Specialty Start Date End Date Robin Duncan MD PCP - General 06/03/10 10/17/12 [address] [place] [address] documented as of this encounter
--- OUTSIDE RECORDS SUMMARY | 2021-12-07 20:34 | XMS_ITS | Encounter Summary ---
:1980 Author Organization [employer] Address [address] [place] [address] Care Team Providers Name Role Phone Robin Duncan MD Primary Care Provider Encounter Details Date Type Department Care Team Description 02/14/2009 Office Visit [facility] Efrain Verdugo PA-C [address] [place] [address] [place] [address] [phone] (Wo rk) Social History Tobacco Use Types Packs/Day Years Used Date Smoking Tobacco: Never Alcohol Use Standard Drinks/Week Comments Not Asked 0 (1 standard drink = 0.6 oz pure alcoho l) Sex Assigned at Date Recorded Not on file documented as of this encounter Last Filed Vital Signs Vital Sign Reading Time Taken Comments Blood Pressure 130/75 02/14/2009 5:51 PM DRIER BELT CONVEYOR Pulse 70 02/14/2009 5:51 PM DRIER BELT CONVEYOR Temperature 36.6 ??C (97.9 ??F) 02/14/2009 5:51 PM DRIER BELT CONVEYOR C: 36 .6 C Respiratory Rate 16 02/14/2009 5:51 PM DRIER BELT CONVEYOR Oxygen Saturation - - Inhaled Oxygen Concentration - - Weight - - Height - - Body Mass Index - - documented in this encounter Progress Notes Efrain Verdugo PA-C - 02/14/2009 12:01 AM CST Progress Notes signed by Efrain Verdugo PA-C at 02/14/09 1911 Author: Efrain Verdugo PA-C Service: (none) Author Type: Physician Service Counter Cashier Filed: 06/22/10 1844 Note Time: 02/14/09 0001 Status: Signed Harness Rigger: Efrain Verdugo PA-C (Resource) SUBJECTIVE: Augustus is a 28-year-old male presenting to urgent care for evaluation of bright red blood per rectum. He describes a large amount of bright red blood this morning with a bowel movement. He notes the blood was quite significant in the stool and when he wiped. He did not note and usually large or painful bowel movement. He has had a history of occasional rectal bleeding due to anal fissures but has noted pain with these in the past. No pain today. No fever chills no night sweats no weight loss. 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 Adverse Drug Reactions: NKDA See EMR. ROS : Complete ROS was negative other than what was cited above. Medications: Reviewed. See Medication List in LastWord. OBJECTIVE: Vital Signs : Reviewed; See Flowsheet Charting in LastWord. General : No acute distress Abdomen: Soft and nontender. Bowel sounds are present. No HSM or mass noted. Rectal : Normal rectal tone. Two small anterior anal fissures are appreciated. No active bleeding was noted. Anoscopic exam reveals no specific lesions or significant blood in the rectal vault. No clots. No hemorrhoids. ASSESSMENT: Bright red blood per rectum PLAN: Reassurance given. He will use Vaseline as a lubricant around the anus at least twice a day and after bowel movements over the next 7 to 10 days. I would like him to increase fiber and clear liquids. He will follow-up with primary care in around 10 days for recheck. He should keep a diary of his symptoms if they continue. The patient was discharged ambulatory and in stable condition. *SH~DNS~SOAP R BELT CONVEYOR documented in this encounter Plan of Treatment Not on filedocumented as of this encounter Visit Diagnoses Not on filedocumented in this encounter Care Teams Home Support Worker Relationship Specialty Start Date End Date Robin Duncan MD PCP - General 06/03/10 10/17/12 [address] [address] [place] [address] documented as of this encounter
--- OUTSIDE RECORDS SUMMARY | 2021-12-07 20:34 | XMS_ITS | Encounter Summary ---
:1980 Author Organization [facility] Address [address] [place] [address] Care Team Providers Name Role Phone Robin Duncan MD Primary Care Provider Encounter Details Date Type Department Care Team Description 03/26/2009 PN Conversion Only [facility] [address] [place] [address] Social History Tobacco Use Types Packs/Day Years Used Date Smoking Tobacco: Never Alcohol Use Standard Drinks/Week Comments Not Asked 0 (1 standard drink = 0.6 oz pure alcoho l) Sex Assigned at Date Recorded Not on file documented as of this encounter Plan of Treatment Not on filedocumented as of this encounter Visit Diagnoses Not on filedocumented in this encounter Care Teams Anthropology Professor Relationship Specialty Start Date End Date Robin Duncan MD PCP - General 06/03/10 10/17/12 [address] [place] [address] documented as of this encounter
--- OUTSIDE RECORDS SUMMARY | 2021-12-07 20:35 | XMS_ITS | Encounter Summary ---
:1980 Author Organization [employer] Address [address] [facility] [place] [address] Care Team Providers Name Role Phone Robin Duncan MD Primary Care Provider Encounter Details Date Type Department Care Team Description 04/18/2007 Hogshead Stock Clerk Only CONVERSION CONVERSION Madie Lowery PA-C [address] [place] [address] (Wo rk) Social History Tobacco Use Types Packs/Day Years Used Date Smoking Tobacco: Never Alcohol Use Standard Drinks/Week Comments Not Asked 0 (1 standard drink = 0.6 oz pure alcoho l) Sex Assigned at Date Recorded Not on file documented as of this encounter Progress Notes Madie Ruby PA-C - 04/18/2007 12:01 AM CST Progress Notes signed by Madie Ruby PA-C at 04/18/07 1526 Author: Madie Ruby PA-C Service: (none) Author Type: Physician Customer Account Specialist Filed: 06/22/10 0102 Note Time: 04/18/07 0001 Status: Signed Title 1 Tutor: Madie Ruby PA-C (Physician Customer Account Specialist) Patient called Urgent Care reporting that he took Zpak as directed for diagnosis strep pharyngitis [id number]. His sore throat has not improved and he now has sinus congestion. No fever no cough. ROS negative. Reviewing Up to Date recommendation macrolide and treatment for strep-pharyngitis appears to be Zithromax 12mg/kg per day for 5 days. He was taking 500mg day one and 250mg day 2-5.Because of ongoing sore throat and sinus congestion with pressure recommending Amoxil 875mg 1 PO bid for 10days. I discussed with the patient covering for strep pharyngitis and sinusitis. If no improve in 2-3 days or worsening condition he is instructed to return to the clinic. Adverse side affects of medications were reviewed. STFEEDING PEER COUNSELOR documented in this encounter Plan of Treatment Not on filedocumented as of this encounter Visit Diagnoses Not on filedocumented in this encounter Care Teams Core Oven Tender Relationship Specialty Start Date End Date Robin Duncan MD PCP - General 06/03/10 10/17/12 [address] [address] [place] [address] documented as of this encounter
--- OUTSIDE RECORDS SUMMARY | 2021-12-07 20:35 | XMS_ITS | Encounter Summary ---
:1980 Author Organization [facility] Address [address] [facility] [place] [address] Care Team Providers Name Role Phone Robin Duncan MD Primary Care Provider Encounter Details Date Type Department Care Team Description 08/16/2008 PN Conversion Only [facility] [place] [address] [employer] [facility] [address] [place] [address] [place] [address] [phone] Social History Tobacco Use Types Packs/Day Years Used Date Smoking Tobacco: Never Alcohol Use Standard Drinks/Week Comments Not Asked 0 (1 standard drink = 0.6 oz pure alcoho l) Sex Assigned at Date Recorded Not on file documented as of this encounter Progress Notes Daksha Hillman MD - 08/16/2008 12:01 AM CDT Progress Notes signed by Daksha Hillman MD at 08/16/08 1244 Author: Daksha Hillman MD Service: (none) Author Type: Physician Filed: 06/22/10 1404 Note Time: 08/16/08 0001 Status: Signed Entertainment [employer] Media Correspondent: Daksha Hillman MD (Physician) NAME: LORA STEWART MR#: [id number] ACCT: [id number] VISIT: [id number] DICTATING CLINICIAN: DAKSHA HILLMAN MD CONFIRM #: [id number] LOC: 511 CLINIC PROGRESS NOTE DATE OF VISIT: 08/16/2008 SUBJECTIVE: Lora Stewart is a 28-year-old gentleman who has a puncture type of injury with a nail gun. A tiny nail went through his little finger on the right on 08/14/08. He was seen in Urgent Care and a splint was applied. He was told to follow up with orthopedics. He is right-hand dominant. He does not have any particular numbness. PAST MEDICAL HISTORY: Unremarkable in terms of medical problems. PRIOR OPERATIONS: None. MEDICATIONS: Updated under LastWord. ADR/ALLERGIES: NONE. FAMILY HISTORY: Negative for heart disease, rheumatoid arthritis, diabetes. SOCIAL HISTORY: Single, has 1 child. He smokes 1/2 pack of cigarettes per day. Drinks about 3 beers per week. 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 REVIEW OF SYSTEMS: History of urinary frequency. Otherwise, negative for cardiac, respiratory, hematologic, GI, neurologic, psychiatric systems. OBJECTIVE: Alert, oriented, healthy gentleman who is not in acute distress. RIGHT HAND EXAMINATION: Shows no significant redness. He has very minimal swelling in the little finger. The DIP joint actively intact in flexion, extension. No drainage is noted. Gross sensory examination is intact. X-ray was reviewed and he has a puncture type of fracture through the distal phalanx at about midpoint. There is a slight angulation that is a result of this fracture. This can be seen only on lateral view. ASSESSMENT: Distal phalanx fracture with a puncture wound to the little finger. PLAN: As long as he is doing well, we recommend immobilization with a Stack splint for 4 weeks. Daily wound care was talked about. He stated that he probably could work with the splint on and for that reason, continuation of his job duty without restrictions were given today. Follow up will be on a p.r.n. basis. ABK:[id number] C: 08/16/08 09:33 CONFIRM #: [id number] documented in this encounter Plan of Treatment Not on filedocumented as of this encounter Visit Diagnoses Not on filedocumented in this encounter Care Teams Tube Man Relationship Specialty Start Date End Date Robin Duncan MD PCP - General 06/03/10 10/17/[address] [place] [address] documented as of this encounter
--- OUTSIDE RECORDS SUMMARY | 2021-12-07 20:35 | XMS_ITS | Encounter Summary ---
:1980 Author Organization [employer] Address [address] [place] [address] Care Team Providers Name Role Phone Robin Duncan MD Primary Care Provider Encounter Details Date Type Department Care Team Description 09/24/2007 Office Visit [facility] A[facility] [place] [address] [place], [place] [address] [place] [address] [phone] (Wo rk) Social History Tobacco Use Types Packs/Day Years Used Date Smoking Tobacco: Never Alcohol Use Standard Drinks/Week Comments Not Asked 0 (1 standard drink = 0.6 oz pure alcoho l) Sex Assigned at Date Recorded Not on file documented as of this encounter Last Filed Vital Signs Vital Sign Reading Time Taken Comments Blood Pressure 104/66 09/24/2007 11:17 AM CDT Pulse 72 09/24/2007 11:17 AM CDT Temperature - - Respiratory Rate - - Oxygen Saturation - - Inhaled Oxygen Concentration - - Weight 78.5 kg (172 lb 15.9 oz) 09/24/2007 11:17 AM C: 78.5kg CDT Height - - Body Mass Index 22.98 08/22/2005 4:15 PM CDT documented in this encounter Progress Notes Avis Marlow MD - 09/24/2007 12:01 AM CDT Progress Notes signed by Avis Marlow MD at 09/24/07 1632 Author: Avis Marlow MD Service: (none) Author Type: (none) Filed: 06/22/10 0549 Note Time: 09/24/07 0001 Status: Signed Advanced Manufacturing Vice President: Avis Marlow MD (Physician) Subjective: this is a 27-year-old male here for consult regarding accutane. He has had acne since age 16. Nodular lesions involving face , chest and back. He's been on multiple treatment regimens with never affective control. These regimens have included oral antibiotics, retinoids. It does get better in the summer when he has more sun exposure. Family history: both father and mother have a history of acne ,his father still has problems with his acne. No family history depression. He does not have a history of depression. 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 He does smoke Discussion: Reviewed the Accutane pamphlet in detail, detailed reviewed of the requirements to be on Accutane, detailed discussion regarding increased sun sensitivity, concern of potential increased risk for depression. Side effects: Dryness of the lips, treated with Vaseline. No symptoms of depression. No headaches. No other side effects. Counseling: Patient counseled on the following -drug should not be shared with any other individual -blood should not be donated while taking Accutane or for one month following completion of therapy -patient has been compliant with program requirements Month of Medications Useage: First Total dose of Accutane to this date: Accutane 20 mg p.o. b.i.d. Lab results: pending Assessment: 1.nodular acne - recalcitrant to more conservative treatments Plan 1.Accutane 20 mg p.o. b.i.d., one month supply 2. Recheck in one month 3. Fractionated cholesterol, CBC q. month 4.discussed management options for dry skin 5. If mood changes, increased irritability etc. he should contact me to discuss discontinuation of the Accutane 6. Duration of treatment- 4 to 6 months *SH~DNS~Custom1 documented in this encounter Plan of Treatment Not on filedocumented as of this encounter Visit Diagnoses Not on filedocumented in this encounter Care Teams Bin Packer Relationship Specialty Start Date End Date Robin Duncan MD PCP - General 06/03/10 10/17/12 [address] [address] [id number] documented as of this encounter
--- OUTSIDE RECORDS SUMMARY | 2021-12-07 20:35 | XMS_ITS | Encounter Summary ---
:1980 Author Organization [employer] Address [address] [place] [address] Care Team Providers Name Role Phone Robin Duncan MD Primary Care Provider Encounter Details Date Type Department Care Team Description 01/14/2008 Office Visit [facility] [place] [address] [place], [place] [address] [place] [address] [phone] (Wo rk) Social History Tobacco Use Types Packs/Day Years Used Date Smoking Tobacco: Never Alcohol Use Standard Drinks/Week Comments Not Asked 0 (1 standard drink = 0.6 oz pure alcoho l) Sex Assigned at Date Recorded Not on file documented as of this encounter Progress Notes Avis Marlow MD - 01/14/2008 12:01 AM CST Progress Notes signed by Avis Marlow MD at 01/14/08 1629 Author: Avis Marlow MD Service: (none) Author Type: (none) Filed: 06/22/10 0834 Note Time: 01/14/08 0001 Status: Signed Ship Captain: Avis Marlow MD (Physician) Subjective: He is completed the 4 th month. Still some papular outbreaks on his cheek and back Clinical response: definitely improved but outbreaks as above Side effects: Dryness of the lips, treated with Vaseline. No symptoms of depression. No headaches. No other side effects. Perhaps some irritability Counseling: Patient counseled on the following -drug should not be shared with any other individual -blood should not be donated while taking Accutane or for one month following completion of therapy -patient has been compliant with program requirements Dosage change: accutane 40 mg po am and then 20 mg po q pm Month of Medications Useage: starting 5th month Objective : This is a patient who is alert and oriented times 3. Lab results: Blood tests- ok Assessment: 1. severe- to moderate acne- starting 5 month Plan: 1. Follow-up in one month to reassess treatment, prescription will be written for 31 days after previous Rx 2. Treatment with Vaseline for lip dryness discussed 3. Change in dosage as described above. Anticipate one more month of treatment after this month *SH~DNS~Custom1 GENCY MEDICAL SERVICE MANAGER documented in this encounter Plan of Treatment Not on filedocumented as of this encounter Visit Diagnoses Not on filedocumented in this encounter Care Teams Continuous Improvement Black Belt Relationship Specialty Start Date End Date Robin Duncan MD PCP - General 06/03/10 10/17/12 [address] [place] [place] [address] documented as of this encounter
--- OUTSIDE RECORDS SUMMARY | 2021-12-07 20:35 | XMS_ITS | Encounter Summary ---
:1980 Author Organization [employer] Address [address] [place] [address] Care Team Providers Name Role Phone Robin Duncan MD Primary Care Provider Encounter Details Date Type Department Care Team Description 12/15/2007 PN Conversion Only [place] Avis Breen [address] [facility] [place] [address] [place], [place] [address] (Wo rk) Social History Tobacco Use Types Packs/Day Years Used Date Smoking Tobacco: Never Alcohol Use Standard Drinks/Week Comments Not Asked 0 (1 standard drink = 0.6 oz pure alcoho l) Sex Assigned at Date Recorded Not on file documented as of this encounter Plan of Treatment Not on filedocumented as of this encounter Procedures Procedure Name Priority Date/Time Associated Diagnosis Comme nts LIPID PANEL AND Routine 12/15/2007 5:11 PM Result s for this DIRECT LDL(IF CDT procedure are in NEEDED) the results section. documented in this encounter Results (ABNORMAL) Lipid Panel and Direct LDL(If Needed) (12/15/2007 5:11 PM CDT) [facility] gist Method Time Signature Length Of Fast 12.0 Hours HP CONVERSION Cholesterol/HDL 3.8 No normal HP CONVERSION Ratio Screen range Cholesterol 169 <200 mg/dL HP CONVERSION HDL Cholesterol 45 >40 mg/dL HP CONVERSION Triglycerides 204 (H) 0 - 149 HP CONVERSION mg/dL LDL Calculated 83 0 - 130 HP CONVERSION mg/dL Comment: Specimen (Source) Anatomical Collection Method Collection Time Re ceived Time Location / / Volume Laterality 12/15/2007 5:11 PM CDT Avis Marlow MD LAB_1 Performing Organization Address City/State/ZIP Code Phon e Number HP CONVERSION documented in this encounter Visit Diagnoses Not on filedocumented in this encounter Care Teams Yarn Mercerizer Operator Relationship Specialty Start Date End Date Robin Duncan MD PCP - General 06/03/10 10/17/[address] [place] [id number] documented as of this encounter
--- OUTSIDE RECORDS SUMMARY | 2021-12-07 20:35 | XMS_ITS | Encounter Summary ---
:1980 Author Organization [facility] Address [address] [place] [address] Care Team Providers Name Role Phone Robin Duncan MD Primary Care Provider Encounter Details Date Type Department Care Team Description 12/14/2007 PN Conversion Only [place] Robin Duncan, [address] [facility] [address] [address] [facility] [address] [place] [address] (Wo rk) Social History Tobacco Use Types Packs/Day Years Used Date Smoking Tobacco: Never Alcohol Use Standard Drinks/Week Comments Not Asked 0 (1 standard drink = 0.6 oz pure alcoho l) Sex Assigned at Date Recorded Not on file documented as of this encounter Plan of Treatment Not on filedocumented as of this encounter Procedures Procedure Name Priority Date/Time Associated Comments Diagnosis HIV ANTIBODY Routine 12/14/2007 4:54 PM Results f or this CDT procedure are i n the results section. SEXUALLY TRANSMITTED Routine 12/14/2007 4:54 PM R esults for this DISEASE PROBE CDT procedure are in the results section. documented in this encounter Results Sexually Transmitted Disease Probe (12/14/2007 4:54 PM CDT) [facility] Method Time Signature Sexually SEE TEXT HP CONVERSION Transmitted Disease Probe Comment: Patient: LORA STEWART R Sexually Trans Disease Probe ?Collected: ??[id number] ??1654 Source: Clean Ca ?Processed: ??[id number] ??1654 ? 1V Final Report ------ ?[id number] ??1310 No Chlamydia trachomatis detected by amp lified DNA assay No Neisseria gonorrhoeae detected by amp lified DNA assay NOTE: The first 15-60 mL of voided urine is the recommended urine specimen for this agus t system. The [employer] Amplified DNA assay is marjan red by the FDA for non-medicolegal diagnostic testing in the adult population. Specimen (Source) Anatomical Collection Method Collection Time Re ceived Time Location / / Volume Laterality 12/14/2007 4:54 PM CDT Robin Duncan MD LAB_1 Performing Organization Address City/State/ZIP Code Phon e Number HP CONVERSION HIV Antibody (12/14/2007 4:54 PM CDT) P athologist Signature HIV 1/HIV 2 Non Reac Non Reac HP CONVERSION Specimen (Source) Anatomical Collection Method Collection Time Re ceived Time Location / / Volume Laterality 12/14/2007 4:54 PM CDT Robin Duncan MD LAB_1 Performing Organization Address City/State/ZIP Code Phon e Number HP CONVERSION documented in this encounter Visit Diagnoses Not on filedocumented in this encounter Care Teams Overhead Door Technician Relationship Specialty Start Date End Date Robin Duncan MD PCP - General 06/03/10 10/17/12 [address] [address] [place] [address] documented as of this encounter
--- OUTSIDE RECORDS SUMMARY | 2021-12-07 20:35 | XMS_ITS | Encounter Summary ---
:[address] [facility] [address] Address [address] [place] [address] Care Team Providers Name Role Phone Robin Duncan MD Primary Care Provider Encounter Details Date Type Department Care Team Description 01/11/2008 PN Conversion Only [place] Avis Breen [address] [facility] [place] [place] [address] [place], [place] [address] (Wo rk) Social History Tobacco Use Types [...] Diagnosis Comme nts LIPID PANEL AND Routine 01/11/2008 5:11 PM Result s for this DIRECT LDL(IF MAMMALOGY TEACHER procedure are in NEEDED) the results section. COMPLETE BLOOD Routine 01/11/2008 5:11 PM Results for this COUNT-W/DIFF MAMMALOGY TEACHER procedure are i n the results section. AST Routine 01/11/2008 5:11 PM Results f or this MAMMALOGY TEACHER procedure are i n the results section. documented in this encounter Results Complete Blood Count-W/Diff (01/11/2008 5:11 PM MAMMALOGY TEACHER) [facility] Method Time Signature White Blood Cell 8.5 3.8 - 11.0 HP CONVERSIO N Count K/cmm Red Blood Cell 5.50 4.20 - HP CONVERSION Count 5.90 m/cmm Hemoglobin 16.6 13.4 - HP CONVERSION 17.5 gm/dL Hematocrit 47.3 39.0 - HP CONVERSION 51.0 % Mean Corpuscular 86.1 80.0 - HP CONVERSION Volume 100.0 fl Mean Corpuscular 30.3 27.0 - HP CONVERSION Hemoglobin 34.0 pg Mean Corpuscular 35.1 32.0 - HP CONVERSION Hemoglobin Conc 36.5 gm/dL [place] RDW 11.9 11.0 - HP CONVERSION 15.0 % Platelet Count 385 140 - 450 HP CONVERSION k/cmm Differential Auto-Dif No normal HP CONVERSION Verify range Neutrophils 5.2 2.0 - 7.5 HP CONVERSION Absolute Count K/cmm Neutrophil 61.2 50.0 - HP CONVERSION 75.0 % Lymphocyte % 28.1 20.0 - HP CONVERSION 40.0 % Monocyte 8.9 5.0 - 14.0 HP CONVERSION % Eosinophil 1.3 0.0 - 6.0 HP CONVERSION % Basophil % 0.5 0.0 - 2.0 HP CONVERSION % Specimen (Source) Anatomical Collection Method Collection Time Re ceived Time Location / / Volume Laterality 01/11/2008 5:11 PM MAMMALOGY TEACHER Avis Marlow MD LAB_1 Performing Organization Address City/State/ZIP Code Phon e Number HP CONVERSION AST (01/11/2008 5:11 PM MAMMALOGY TEACHER) [email or web address] Method Time Signature Aspartate 22 0 - 45 HP CONVERSION Aminotransferase U/L Specimen (Source) Anatomical Collection Method Collection Time Re ceived Time Location / / Volume Laterality 01/11/2008 5:11 PM MAMMALOGY TEACHER Avis Marlow MD LAB_1 Performing Organization Address City/State/ZIP Code Phon e Number HP CONVERSION Lipid Panel and Direct LDL(If Needed) (01/11/2008 5:11 PM MAMMALOGY TEACHER) [email or web address] Method Time Signature Length Of Fast 12.0 Hours HP CONVERSION Cholesterol/HDL 3.2 No normal HP CONVERSION Ratio Screen range Cholesterol 169 <200 mg/dL HP CONVERSION HDL Cholesterol 53 >40 mg/dL HP CONVERSION Triglycerides 110 0 - 149 HP CONVERSION mg/dL LDL Calculated 94 0 - 130 HP CONVERSION mg/dL Comment: Specimen (Source) Anatomical Collection Method Collection Time Re ceived Time Location / / Volume Laterality 01/11/2008 5:11 PM MAMMALOGY TEACHER Avis Marlow MD LAB_1 Performing Organization Address City/State/ZIP Code Phon e Number HP CONVERSION documented in this encounter Visit Diagnoses Not on filedocumented in this encounter Care Teams Mud Analysis Supervisor Relationship Specialty Start Date End Date Robin Duncan MD PCP - General 06/03/10 10/17/[address] [place] [address] documented as of this encounter
--- OUTSIDE RECORDS SUMMARY | 2021-12-07 20:35 | XMS_ITS | Encounter Summary ---
:1980 Author Organization [employer] Address [address] [place] [address] Care Team Providers Name Role Phone Robin Duncan MD Primary Care Provider Encounter Details Date Type Department Care Team Description 03/17/2008 Office Visit [facility] Obed Iglesias MD [facility] [address] [facility] [address] [facility] [address] [place], [place] [address] [place] [address] [phone] (Wo rk) Social History Tobacco Use Types Packs/Day Years Used Date Smoking Tobacco: Never Alcohol Use Standard Drinks/Week Comments Not Asked 0 (1 standard drink = 0.6 oz pure alcoho l) Sex Assigned at Date Recorded Not on file documented as of this encounter Progress Notes Obed Iglesias MD - 03/17/2008 12:01 AM CST Progress Notes signed by Obed Iglesias MD at 04/04/08 1603 Author: Obed Iglesias MD Service: (none) Author Type: Physician Filed: 06/22/10 1004 Note Time: 03/17/08 0001 Status: Signed Race Car Mechanic: Obed Iglesias MD (Physician) NAME: LORA STEWART MR#: [id number] ACCT: [id number] VISIT: [id number] DICTATING CLINICIAN: OBED IGLESIAS MD CONFIRM #: [id number] LOC: 1040 CLINIC PROGRESS NOTE DATE OF VISIT: 03/17/2008 SUBJECTIVE: : 1980. Lora is a very pleasant 27-year-old male who comes in today to follow up on his Accutane. He had suffered from acne on his face, back and chest. He completed his course of Accutane 03/02/08. His blood work has been fine thus far. He states his dry lips are subsiding. He does not have any headaches, visual changes or mood changes. He has no further Accutane. Has not donated blood. OBJECTIVE: GENERAL: The patient appears his stated age. PSYCH: Alert and oriented x3. SKIN: Skin was examined, including the face, back, chest, and neck. Looked flawless today. No breakouts noted. Lips mildly dry. ASSESSMENT: 1. Naljza-ik-dgyzakjr acne, in remission, status post complete course of Accutane. Will obtain CBC, AST, and cholesterol profile today. He was counseled that he should not donate blood at least 30 days after taking Accutane. He had no further medication. 2. Mild dryness of the lips. He will continue on with Vaseline as needed. PLAN: See assessment. KML:[id number] C: 03/18/08 09:36 CONFIRM #: [id number] ITION TECH documented in this encounter Plan of Treatment Not on filedocumented as of this encounter Visit Diagnoses Not on filedocumented in this encounter Care Teams Wrapper Sizer Relationship Specialty Start Date End Date Robin Duncan MD PCP - General 06/03/10 10/17/12 [address] [place] [address] [place] [address] documented as of this encounter
--- OUTSIDE RECORDS SUMMARY | 2021-12-07 20:35 | XMS_ITS | Encounter Summary ---
:1980 Author Organization [facility] Address [address] [place] [address] Care Team Providers Name Role Phone Robin Duncan MD Primary Care Provider Reason for Visit Reason Comments Other Encounter Details Date Type Department Care Team Description 09/28/2007 Telephone [facility] Akhil Villarreal Other Clinic MD [place] [address] [place], [place] [address] [place] [address] [phone] (Wo rk) Social History Tobacco Use Types Packs/Day Years Used Date Smoking Tobacco: Never Alcohol Use Standard Drinks/Week Comments Not Asked 0 (1 standard drink = 0.6 oz pure alcoho l) Sex Assigned at Date Recorded Not on file documented as of this encounter [facility], Message - 09/28/2007 11:46 AM CDT Phone Note filed by Fnbox at 06/20/10 0159 Author: Fnbox Service: (none) Author Type: (none) Filed: 06/20/109 Note Time: 09/28/07 1146 Status: Signed Purchasing Internship: Fnbox Front Line Sx Call Caller Name/Relationship:Augustus Primary Superannuation Clerk:Raji Symptom or request?Pt states he thinks he has having a reaction to the medication Dr iverson. He states he is having blurred vision really bad headache-migraine.Accutane Is appointment scheduled & when?no School Operations Manager:Augustus Best call back number:[phone] Is it OK to leave a confidential message on this voicemail? *ECODE~PNSX2 Created on 28Sep2007 11:46am by FRANCIE FORREST On 28Sep2007 11:54am JUAN ROJAS wrote: I called pt and he is at work. Has no history of headaches. Will D/C Accutane immediately. I told him if after one to two weeks his headache is under control he could try one dose of accutane to see if that is the side effect. On 28Sep2007 2:24pm RIVER VILLARREAL wrote: Reviewed and will do a follow up phone call tomorrow. jo On 28Sep2007 2:24pm RIVER VILLARREAL wrote: Reviewed and will do a follow up phone call tomorrow. jo Acknowledged by RIVER VILLARREAL on 2:24pm On 29Sep2007 12:59pm OBED LAZARO wrote: Patient returning phone call please call patient at [phone] c vm yes On 30Sep2007 12:34pm RIVER VILLARREAL wrote: Headache gone the same day, still has been taking the accutane but now not headache. He is a history of once a month headache but nothing this intense. We will continue the accutane if he has another headache like the one 2 days ago. He is to stop the accutane and reasses use of the accutane at an office visit. jo Acknowledged by RIVER VILLARREAL on 12:34pm TRONICS SCALE TESTER documented in this encounter Plan of Treatment Not on filedocumented as of this encounter Visit Diagnoses Not on filedocumented in this encounter Care Teams Crossbar Switch Adjuster Relationship Specialty Start Date End Date Robin Duncan MD PCP - General 06/03/10 10/17/12 [address] [address] documented as of this encounter
--- OUTSIDE RECORDS SUMMARY | 2021-12-07 20:35 | XMS_ITS | Encounter Summary ---
:1980 Author Organization [employer] [facility] Address [address] [facility] [place] [address] Care Team Providers Name Role Phone Robin Duncan MD Primary Care Provider Encounter Details Date Type Department Care Team Description 11/17/2007 PN Conversion Only [facility] N Kristi Tapia, [address] [place] [address] [address] [place], [place] [address] (Wo rk) Social History Tobacco Use Types [...] Associated Diagnosis Comme nts COMPLETE BLOOD Routine 11/17/2007 4:47 PM Results for this COUNT-W/DIFF CDT procedure are i n the results section. documented in this encounter Results Complete Blood Count-W/Diff (11/17/2007 4:47 PM CDT) [facility] Method Time Signature White Blood Cell 7.7 3.8 - 11.0 HP CONVERSIO N Count K/cmm Red Blood Cell 5.29 4.20 - HP CONVERSION Count 5.90 m/cmm Hemoglobin 16.5 13.4 - HP CONVERSION 17.5 gm/dL Hematocrit 46.7 39.0 - HP CONVERSION 51.0 % Mean Corpuscular 88.2 80.0 - HP CONVERSION Volume 100.0 fl Mean Corpuscular 31.1 27.0 - HP CONVERSION Hemoglobin 34.0 pg Mean Corpuscular 35.3 32.0 - HP CONVERSION Hemoglobin Conc 36.5 gm/dL Hawkeye RDW 11.7 11.0 - HP CONVERSION 15.0 % Platelet Count 385 140 - 450 HP CONVERSION k/cmm Differential Auto-Dif No normal HP CONVERSION Verify range Neutrophils 4.2 2.0 - 7.5 HP CONVERSION Absolute Count K/cmm Neutrophil 55.0 50.0 - HP CONVERSION 75.0 % Lymphocyte % 32.6 20.0 - HP CONVERSION 40.0 % Monocyte 9.2 5.0 - 14.0 HP CONVERSION % Eosinophil 2.4 0.0 - 6.0 HP CONVERSION % Basophil % 0.8 0.0 - 2.0 HP CONVERSION % Specimen (Source) Anatomical Collection Method Collection Time Re ceived Time Location / / Volume Laterality 11/17/2007 4:47 PM CDT Kristi Tapia MD LAB_1 Performing Organization Address City/State/ZIP Code Phon e Number HP CONVERSION documented in this encounter Visit Diagnoses Not on filedocumented in this encounter Care Teams Lead Section Supervisor Relationship Specialty Start Date End Date Robin Duncan MD PCP - General 06/03/10 10/17/12 [address] [place] [id number] documented as of this encounter
--- OUTSIDE RECORDS SUMMARY | 2021-12-07 20:35 | XMS_ITS | Encounter Summary ---
:1980 Author Organization [employer] Address [address] [place] [address] Care Team Providers Name Role Phone Robin Duncan MD Primary Care Provider Encounter Details Date Type Department Care Team Description 10/22/2007 Office Visit [facility] Kristi Alfaro MD Skin Clinic [address] [facility] [address] [place] [address] [place], [place] [address] [phone] Social History Tobacco Use Types Packs/Day Years Used Date Smoking Tobacco: Never Alcohol Use Standard Drinks/Week Comments Not Asked 0 (1 standard drink = 0.6 oz pure alcoho l) Sex Assigned at Date Recorded Not on file documented as of this encounter Progress Notes Kristi Tapia MD - 10/22/2007 12:01 AM CDT Progress Notes signed by Kristi Tapia MD at 10/22/07 5053 Author: Kristi Tapia MD Service: (none) Author Type: (none) Filed: 06/22/10 0629 Note Time: 10/22/07 0001 Status: Signed Commercial Construction Estimator: Kristi Tapia MD (Physician) Clinic Visit IMPRESSION: Acne on all sites improving CHIEF COMPLAINT: Acne SUBJECTIVE: Follow-up Visit Past History: Adverse Drug Reaction: Pt's Adverse Drug Reactions were reviewed, [facility] Chronic Medications: reviewed and updated today on Health Profile in LastWord. Acne Medications: Pt. has used current medication regimen for 1 month. Isotretinoin (Accutane) 20mg po BID. No GI upset. No new headaches. No new or worsened depression. No myalgias. No sun sensitivity. No excessive skin dryness. Labs reviewed and normal. Pt. is taking meds as directed. Online medical records were reviewed by me. OBJECTIVE: General Appearance: Patient in no apparent distress, with normal affect Face: mild inflammation, mild papules. Mild dryness, nothing severe. ASSESSMENT: Acne on all sites improving PLAN: Cleansing program discussed with the patient. Risks, benefits, and alternatives of treatments discussed with the patient. Pt. will continue current medications at the same dosages; see Health Profile in LastWord. Isotretinoin (Accutane) 20 mg po BID Labs reviewed and normal Follow up for labs before next visit. Discussed the risks, benefits, alternatives of medications, cleansing, not excoriating, etc. RTC 1 month, sooner PRN Total visit time: 25 minutes minutes. Counseling time: 20 minutes minutes. *SH~PC~ACNE ~Shorthand Note completed on: 10/22/2007 5:06 PM documented in this encounter Plan of Treatment Not on filedocumented as of this encounter Visit Diagnoses Not on filedocumented in this encounter Care Teams Stamping Die Try Out Worker Relationship Specialty Start Date End Date Robin Duncan MD PCP - General 06/03/10 10/17/12 [address] [address] [place] [address] documented as of this encounter
--- OUTSIDE RECORDS SUMMARY | 2021-12-07 20:35 | XMS_ITS | Encounter Summary ---
:1980 Author Organization [employer] Address [address] [place] [address] Care Team Providers Name Role Phone Robin Duncan MD Primary Care Provider Reason for Visit Reason Comments Other Encounter Details Date Type Department Care Team Description 03/15/2007 Telephone [facility] [address] [facility] Emma Diane RN Other [address] [facility] [place] [address] Social History Tobacco Use Types Packs/Day Years Used Date Smoking Tobacco: Never Alcohol Use Standard Drinks/Week Comments Not Asked 0 (1 standard drink = 0.6 oz pure alcoho l) Sex Assigned at Date Recorded Not on file documented as of this encounter Progress Notes Emma Diane RN - 03/15/2007 2:10 PM CST Phone Note filed by Emma Diane RN at 06/19/10 1222 Author: Emma Diane RN Service: (none) Author Type: Registered Nurse Filed: 06/19/10 1222 Note Time: 03/15/07 1410 Status: Signed Benefits Consultant: Emma Diane RN (Registered Nurse) Per Dr Natalia pedraza for pt to be seen in ortho for his left ankle injury. Transferred him to ortho to schedule appt that works with his schedule. Created on 15Mar2007 2:10pm by EMMA PARIS TIONAL PSYCHOLOGIST documented in this encounter Plan of Treatment Not on filedocumented as of this encounter Visit Diagnoses Not on filedocumented in this encounter Care Teams Tool Room Lathe Operator Relationship Specialty Start Date End Date Robin Duncan MD PCP - General 06/03/10 10/17/12 [address] [place] [place] [address] documented as of this encounter
--- OUTSIDE RECORDS SUMMARY | 2021-12-07 20:35 | XMS_ITS | Encounter Summary ---
:1980 Author Organization [employer] Address [address] [place] [address] Care Team Providers Name Role Phone Robin Duncan MD Primary Care Provider Encounter Details Date Type Department Care Team Description 12/17/2007 Office Visit [facility] Avis Marlow [facility] MD [place] [address] [place], [place] [address] [place] [address] [phone] (Wo rk) Social History Tobacco Use Types Packs/Day Years Used Date Smoking Tobacco: Never Alcohol Use Standard Drinks/Week Comments Not Asked 0 (1 standard drink = 0.6 oz pure alcoho l) Sex Assigned at Date Recorded Not on file documented as of this encounter Progress Notes Avis Marlow MD - 12/17/2007 12:01 AM CDT Progress Notes signed by Avis Marlow MD at 12/17/07 0848 Author: Avis Marlow MD Service: (none) Author Type: (none) Filed: 06/22/10 0751 Note Time: 12/17/07 0001 Status: Signed Fruit And Vegetable Inspector: Avis Marlow MD (Physician) Subjective: This is a 27 year old male who has completed three months of accutane Clinical response: excellent, occasional outbream Side effects: Dryness of the lips, treated with Vaseline.dry nasal mucosa- suggested saline nasal mist. No symptoms of depression. Perhaps some slight irritability . No headaches. No other side effects. Counseling: Patient counseled on the following -drug should not be shared with any other individual -blood should not be donated while taking Accutane or for one month following completion of therapy -patient has been compliant with program requirements Dosage change: none Month of Medications Useage: starting third month Total dose of Accutane to this date: Lab results: Blood tests- slight elevation the triglyceride, but he admits that he has not fasted for any of his blood tests Assessment: 1.Severe- moderate acne-starting fourth month Plan: 1.Accutane 20 mg p.o. b.i.d., follow up in one month 2. Treatment with Aquaphor for lip dryness discussed 3.Lab work prior to next visit *SH~DNS~Custom1 documented in this encounter Plan of Treatment Not on filedocumented as of this encounter Visit Diagnoses Not on filedocumented in this encounter Care Teams Air Brake Man Relationship Specialty Start Date End Date Robin Duncan MD PCP - General 06/03/10 10/17/12 [address] [address] [place] [address] documented as of this encounter
--- OUTSIDE RECORDS SUMMARY | 2021-12-07 20:35 | XMS_ITS | Encounter Summary ---
:1980 Author Organization [facility] Address [address] [place] [address] Care Team Providers Name Role Phone Robin Duncan MD Primary Care Provider Reason for Visit Reason Comments Other Encounter Details Date Type Department Care Team Description 12/08/2008 Telephone [facility], Message Other [address] [place] [address] Social History Tobacco Use Types Packs/Day Years Used Date Smoking Tobacco: Never Alcohol Use Standard Drinks/Week Comments Not Asked 0 (1 standard drink = 0.6 oz pure alcoho l) Sex Assigned at Date Recorded Not on file documented as of this encounter [facility], Message - 12/08/2008 8:37 AM CDT Phone Note filed by Cloudant at 06/21/10 5718 Author: [employer]ant Service: (none) Author Type: (none) Filed: 06/21/10 4402 Note Time: 12/08/08836 Status: Signed Traveling Crane Operator: Cloudant (Resource) Front Line Sx Call Caller Name/Relationship:Augustus-tony Primary Computer Help Desk Specialist:n/a Symptom or request?The patient is requesting to speak to a nurse about his flu symptoms and if he could give them to his daughter. Is appointment scheduled & when?no Grill Chef:Augustus Haider call back number:[phone] Is it OK to leave a confidential message on this voicemail?yes *ECODE~PNSX2 Created on 08Dec2008 8:37am by KAMRYN BILL On 08Dec2008 8:55am BRUNO CASTLE wrote: CLINICIAN FOLLOW-UP: none IMPRESSION: Headache. SYMPTOMS: Pt. calling. Said he thinks he may have the flu, yesterday afternoon and this morning has some nausea. Had a moderate headache last night, resolved now. Afebrile, denies cough, sore throat, runny nose, body aches. Is concerned about 1 year old daughter and passing the flu to her. No emesis or vision problems, no history of headaches/migraines. Reviewed flu symptoms with pt. and good handwashing, coughing/sneezing into his elbow area. Denies emergent symptoms Problem List: reviewed in electronic medical record. CARE ADVICE: HOME CARE ADVICE FOR HEADACHE PAIN MEDICATION: For pain and fever relief, take acetaminophen OR ibuprofen. ACETAMINOPHEN (e.g., Tylenol; The dose is 650 mg bymouth every 4 hours or 1000 mg by mouth every 6 hours. Maximum dose per day = 4000 mg. IBUPROFEN (e.g., Motrin, Advil, The dose is 400 mg by mouth every 6 hours or 600 mg by mouth every 8 hours. REST: Lie down in a dark, quiet place and try to relax. Close your eyes and imagine your entire body relaxing. LOCAL COLD: Apply a cold wet washcloth or cold pack to the forehead for 20 minutes. CALL BACK IF: Headache lasts longer than 24 hours, or you become worse. Advised to call back if any of the following occur: symptoms worsen or persist, any other questions or concerns. PLAN: HOME CARE Patient/Caller agrees with plan and denies additional questions. References Used: [facility] Adult Telephone Protocols--Headache. Call Complete. *SH~THOMP~HEADACHE ~ OR MAKER documented in this encounter Plan of Treatment Not on filedocumented as of this encounter Visit Diagnoses Not on filedocumented in this encounter Care Teams Hardware Designer Relationship Specialty Start Date End Date Robin Duncan MD PCP - General 06/03/10 10/17/[address] [place] [address] documented as of this encounter
--- OUTSIDE RECORDS SUMMARY | 2021-12-07 20:35 | XMS_ITS | Encounter Summary ---
:1980 [facility] Address [address] [facility] [place] [address] Care Team Providers Name Role Phone Robin Duncan MD Primary Care Provider Encounter Details Date Type Department Care Team Description 08/21/2008 PN Conversion Only [facility] CONVERSION Social History Tobacco Use Types Packs/Day Years Used Date Smoking Tobacco: Never Alcohol Use Standard Drinks/Week Comments Not Asked 0 (1 standard drink = 0.6 oz pure alcoho l) Sex Assigned at Date Recorded Not on file documented as of this encounter Plan of Treatment Not on filedocumented as of this encounter Visit Diagnoses Not on filedocumented in this encounter Care Teams Projects Manager Relationship Specialty Start Date End Date Robin Duncan MD PCP - General 06/03/10 10/17/12 [address] [place] [address] documented as of this encounter
--- OUTSIDE RECORDS SUMMARY | 2021-12-07 20:35 | XMS_ITS | Encounter Summary ---
:1980 Author Organization [facility] Address [address] [place] [address] Care Team Providers Name Role Phone Robin Duncan MD Primary Care Provider Reason for Visit Reason Comments Other Encounter Details Date Type Department Care Team Description 10/22/2007 Telephone [facility], Message Other [address] [place], [place] [address] Social History Tobacco Use Types Packs/Day Years Used Date Smoking Tobacco: Never Alcohol Use Standard Drinks/Week Comments Not Asked 0 (1 standard drink = 0.6 oz pure alcoho l) Sex Assigned at Date Recorded Not on file documented as of this encounter [facility], Message - 10/22/2007 2:26 PM CDT Phone Note filed by ybuy at 06/20/10 0400 Author: [employer]buy Service: (none) Author Type: (none) Filed: 06/20/100 Note Time: 10/22/071425 Status: Signed Train Gate Attendant: ybuy Front Line Sx Call Caller Name/Relationship:Augustus Ramirez Primary Personal Injury Legal Assistant: Symptom or request?Pt had seen today and states he needs a pledge # in order for him to get his prescription filled for accutane Is appointment scheduled & when? Senior Database Engineer:Augustus Haider call back number:[phone] Is it OK to leave a confidential message on this voicemail?yes *ECODE~PNSX2 Created on 22Oct2007 2:26pm by ESTELLA MOFFETT R On 22Oct2007 4:51pm MAUREEN GASPAR wrote: Sallie CAMPBELL to call back. On 25Oct2007 4:34pm SALLIE ROJAS wrote: Accutane rx was picked up. NRY CONTRACTOR documented in this encounter Plan of Treatment Not on filedocumented as of this encounter Visit Diagnoses Not on filedocumented in this encounter Care Teams Assembler Seat Relationship Specialty Start Date End Date Robin Duncan MD PCP - General 06/03/10 10/17/12 [address] [address] [address] documented as of this encounter
--- OUTSIDE RECORDS SUMMARY | 2021-12-07 20:35 | XMS_ITS | Encounter Summary ---
:[address] [address] [facility] Address [address] [place] [address] Care Team Providers Name Role Phone Robin Duncan MD Primary Care Provider Encounter Details Date Type Department Care Team Description 04/14/2007 PN Conversion Only [facility] [address] [facility] Precious Joe, [address] [place], [place] [address] [address] [place] [address] (Wo rk) Social History Tobacco Use Types [...] Diagnosis Comme nts STREP GROUP A Routine 04/14/2007 9:13 PM Results for this ANTIGEN TEST [facility]F [facility]ENCH procedure are i n the results section. BETA STREP FOLLOWUP Routine 04/14/2007 9:13 PM Re sults for this CHEF FRENCH procedure are i n the results section. documented in this encounter Results Strep Group A Antigen Test (04/14/2007 9:13 PM [facility]F [facility]ENCH) Analysis Performed At Patho logist Time Signature Strep Group A Negative Negative HP CONVERSION Antigen Test Comment: Culture to follow. Specimen (Source) Anatomical Collection Method Collection Time Re ceived Time Location / / Volume Laterality 04/14/2007 9:13 PM [facility] Precious Joe PA-C LAB_1 Performing Organization Address City/[facility]/ZIP Code Phon e Number HP CONVERSION (ABNORMAL) Beta Strep Followup (04/14/2007 9:13 PM [facility]F [facility]ENCH) Analysis Performed At [facility] Time Signature Strep Screen SEE TEXT HP CONVERSION (A) Comment: Patient: LORA STEWART Rapid Strep Follow up Culture ? Collected: ??[id number] ??[id number] Source: Throat ?Processed: ??[id number] ??[id number] Final Report ------ ?[id number] ??[id number] Beta Strep Group A Present. ICSI Pharyngitis guideline recommends Penicillin V potassium (Pen VK) in nonal lergic patients. If < 50 lbs, 250 mg PenVK BID for 10 day s. >=50 lbs, 500 mg PenVK BID for 10 days. Specimen (Source) Anatomical Collection Method Collection Time Re ceived Time Location / / Volume Laterality 04/14/2007 9:13 PM [facility] Precious Joe PA-C LAB_1 Performing Organization Address City/[facility] Code Phon e Number HP CONVERSION documented in this encounter Visit Diagnoses Not on filedocumented in this encounter Care Teams Hand Bander Relationship Specialty Start Date End Date Robin Duncan MD PCP - General 06/03/10 10/17/12 [address] [place] [address] [place] [address] documented as of this encounter
--- OUTSIDE RECORDS SUMMARY | 2021-12-07 20:35 | XMS_ITS | Encounter Summary ---
:1980 Author Organization [employer] Address [address] [place] [address] Care Team Providers Name Role Phone Robin Duncan MD Primary Care Provider Encounter Details Date Type Department Care Team Description 10/24/2008 Office Visit [facility] [address] Haris Cameron, Becca ARMSTRONG [address] [place] [address] [place], [place] [address] (Wo rk) Social History Tobacco Use Types Packs/Day Years Used Date Smoking Tobacco: Never Alcohol Use Standard Drinks/Week Comments Not Asked 0 (1 standard drink = 0.6 oz pure alcoho l) Sex Assigned at Date Recorded Not on file documented as of this encounter Last Filed Vital Signs Vital Sign Reading Time Taken Comments Blood Pressure 117/77 10/24/2008 12:32 PM CDT Pulse 70 10/24/2008 12:32 PM CDT Temperature 36.6 ??C (97.9 ??F) 10/24/2008 12:32 PM CDT C: 3 6.6 C Respiratory Rate 16 10/24/2008 12:32 PM CDT Oxygen Saturation - - Inhaled Oxygen Concentration - - Weight - - Height - - Body Mass Index - - documented in this encounter Progress Notes Kennedy Cameron MD - 10/24/2008 12:01 AM CDT Progress Notes signed by Kennedy Cameron MD at 11/09/08 0706 Author: Kennedy Cameron MD Service: (none) Author Type: Physician Filed: 06/22/10 1547 Note Time: 10/24/08 0001 Status: Signed Manager Switch: Kennedy Cameron MD (Physician) NAME: LORA STEWART MR#: [id number] ACCT: [id number] VISIT: [id number] DICTATING CLINICIAN: Camilo CAMERON MD CONFIRM #: [id number] LOC: [address] [place] [address] OCCUPATIONAL MEDICINE REPORT DATE OF VISIT: 10/24/2008 COMPANY NAME: [employer] DATE OF INJURY: 10/24/08. IS CONDITION WORK RELATED? Yes. SUBJECTIVE: The patient is a 28-year-old male who had a ladder on a porch roof to get up to the next level, and from a height of about 8 feet, had the ladder go out from under him. He fell backwards, landing partial on the ladder, on the roof. Primary area of discomfort is the left buttock; also, sustained an injury to the right elbow. Did not strike his head. No loss of consciousness. MEDICATIONS: Ativan and Nora p.r.n. ADR/ALLERGIES: NONE. OBJECTIVE: VS: BP: 117/77. T: 98.9 F. P: 70. R: 16. PHYSICAL EXAM: Right elbow shows evidence for a laceration over the proximal ulna. Range of motion of the elbow is full. X-ray is obtained, negative for fracture. Wound is cleansed, anesthetized with 2% Xylocaine, and closed with four 5-0 nylon sutures. He has 2 areas over the lower back which show slight indentations from where he hit the ladder, 1 over the right SI joint, the other a little bit more superior, about the level of L3 on the left. There is tenderness over the left buttock, but no evidence for discoloration or swelling. SI joints are nontender. Pelvic compression causes no pain. X-ray of the pelvis is negative for bony injury on my interpretation. Sacrum and coccyx are nontender. ASSESSMENT: 1. Contusion, left buttock. 2. Laceration, right elbow. PLAN: He is given Vicodin to use for pain at night. Will be using anti-inflammatories and ice during the day. I think he should not be lifting greater than 20 lb. Keep wound clean and dry. Would anticipate return to full activity on 10/28. If that is not the case, will need to be reassessed. FOLLOWUP DATE: UNDETERMINED. MAXIMUM MEDICAL IMPROVEMENT: UNDETERMINED. PERMANENT PARTIAL DISABILITY RATING: UNDETERMINED. WW:[id number] C: 10/24/08 17:54 CONFIRM #: [id number] documented in this encounter Plan of Treatment Not on filedocumented as of this encounter Procedures Procedure Name Priority Date/Time Associated Diagnosis Comme nts XR ELBOW RT 3+ Routine 10/24/2008 12:54 PM Result s for this VIEWS CDT procedure are i n the results section. XR PELVIS 1-2 VIEWS Routine 10/24/2008 12:54 PM R esults for this CDT procedure are i n the results section. documented in this encounter Results XR Pelvis 1-2 Views (10/24/2008 12:54 PM CDT) Anatomical Region Laterality Modality Pelvis Other Specimen (Source) Anatomical Location Collection Method / Collectio n Time Received Time / Laterality Volume Impressions 10/24/2008 12:54 PM CDT : ??Pelvis within normal limits. Dictating OMAR HALL MD Narrative 10/24/2008 12:54 PM CDT COMPARISON: ??None. FINDINGS: ??Bony structures appear intac t. ??Joint spaces appear within normal limits. ??There is no dislocation or significant degenerative change. Procedure Note Omar Littlejohn MD - 05/07/2016Formatti ng of this note might be different from the original. COMPARISON: None. FINDINGS: Bony structures appear intact. Joint spaces appear within normal limits. There is no dislocation o r significant degenerative change. IMPRESSION : Pelvis within normal limits. Dictating OMAR HALL MD Kennedy Cameron MD RAD GD XR Elbow Rt 3+ Views (10/24/2008 12:54 PM CDT) Anatomical Region Laterality Modality Upper Extremity, Elbow Other Specimen (Source) Anatomical Location Collection Method / Collectio n Time Received Time / Laterality Volume Impressions 10/24/2008 12:54 PM CDT : ??Right elbow within normal limits. Dictating OMAR HALL MD Narrative 10/24/2008 12:54 PM CDT COMPARISON: ??None. FINDINGS: ??Bony structures appear to be intact and no definite fracture, dislocation or joint effusion is identified. Procedure Note Omar Littlejohn MD - 05/07/2016Formatti ng of this note might be different from the original. COMPARISON: None. FINDINGS: Bony structures appear to be i ntact and no definite fracture, dislocation or joint effusion is identified. IMPRESSION : Right elbow within normal limits. Dictating OMAR HALL MD Kennedy Cameron MD RAD GD documented in this encounter Visit Diagnoses Not on filedocumented in this encounter Care Teams Coding Assistant Relationship Specialty Start Date End Date Robin Duncan MD PCP - General 06/03/10 10/17/12 [id number] [place] [id number] documented as of this encounter
--- OUTSIDE RECORDS SUMMARY | 2021-12-07 20:35 | XMS_ITS | Encounter Summary ---
:1980 Author [facility] Address [address] [place] [address] Care Team Providers Name Role Phone Robin Duncan MD Primary Care Provider Encounter Details Date Type Department Care Team Description 10/24/2008 PN Conversion Only [facility] [address] [place] [address] Social History Tobacco Use Types Packs/Day Years Used Date Smoking Tobacco: Never Alcohol Use Standard Drinks/Week Comments Not Asked 0 (1 standard drink = 0.6 oz pure alcoho l) Sex Assigned at Date Recorded Not on file documented as of this encounter Plan of Treatment Not on filedocumented as of this encounter Visit Diagnoses Not on filedocumented in this encounter Care Teams Media Center Director School Relationship Specialty Start Date End Date Robin Duncan MD PCP - General 06/03/10 10/17/12 [address] [address] [address] documented as of this encounter
--- OUTSIDE RECORDS SUMMARY | 2021-12-07 20:35 | XMS_ITS | Encounter Summary ---
:1980 Author Organization [facility] [facility] Address [address] [place] [address] Care Team Providers Name Role Phone Robin Duncan MD Primary Care Provider Encounter Details Date Type Department Care Team Description 02/10/2008 PN Conversion Only [place] Avis Breen [address] [facility] [place] [address] [place], [place] [phone] (Wo rk) Social History Tobacco Use Types [...] Diagnosis Comme nts LIPID PANEL AND Routine 02/10/2008 5:29 PM Result s for this DIRECT LDL(IF PULLEY MORTISER OPERATOR procedure are in NEEDED) the results section. COMPLETE BLOOD Routine 02/10/2008 5:29 PM Results for this COUNT-W/DIFF PULLEY MORTISER OPERATOR procedure are i n the results section. AST Routine 02/10/2008 5:29 PM Results f or this PULLEY MORTISER OPERATOR procedure are i n the results section. documented in this encounter Results Complete Blood Count-W/Diff (02/10/2008 5:29 PM PULLEY MORTISER OPERATOR) [facility] Method Time Signature White Blood Cell 8.6 3.8 - 11.0 HP CONVERSIO N Count K/cmm Red Blood Cell 5.20 4.20 - HP CONVERSION Count 5.90 m/cmm Hemoglobin 15.4 13.4 - HP CONVERSION 17.5 gm/dL Hematocrit 45.0 39.0 - HP CONVERSION 51.0 % Mean Corpuscular 86.4 80.0 - HP CONVERSION Volume 100.0 fl Mean Corpuscular 29.5 27.0 - HP CONVERSION Hemoglobin 34.0 pg Mean Corpuscular 34.2 32.0 - HP CONVERSION Hemoglobin Conc 36.5 gm/dL [place] RDW 12.1 11.0 - HP CONVERSION 15.0 % Platelet Count 346 140 - 450 HP CONVERSION k/cmm Differential Auto-Dif No normal HP CONVERSION Verify range Neutrophils 5.0 2.0 - 7.5 HP CONVERSION Absolute Count K/cmm Neutrophil 58.3 50.0 - HP CONVERSION 75.0 % Lymphocyte % 30.4 20.0 - HP CONVERSION 40.0 % Monocyte 9.0 5.0 - 14.0 HP CONVERSION % Eosinophil 1.6 0.0 - 6.0 HP CONVERSION % Basophil % 0.7 0.0 - 2.0 HP CONVERSION % Specimen (Source) Anatomical Collection Method Collection Time Re ceived Time Location / / Volume Laterality 02/10/2008 5:29 PM PULLEY MORTISER OPERATOR Avis Marlow MD LAB_1 Performing Organization Address City/State/ZIP Code Phon e Number HP CONVERSION AST (02/10/2008 5:29 PM PULLEY MORTISER OPERATOR) [place] Method Time Signature Aspartate 27 0 - 45 HP CONVERSION Aminotransferase U/L Specimen (Source) Anatomical Collection Method Collection Time Re ceived Time Location / / Volume Laterality 02/10/2008 5:29 PM PULLEY MORTISER OPERATOR Avis Marlow MD LAB_1 Performing Organization Address City/State/ZIP Code Phon e Number HP CONVERSION Lipid Panel and Direct LDL(If Needed) (02/10/2008 5:29 PM PULLEY MORTISER OPERATOR) [place] Method Time Signature Length Of Fast 12.0 Hours HP CONVERSION Cholesterol/HDL 3.0 No normal HP CONVERSION Ratio Screen range Cholesterol 161 <200 mg/dL HP CONVERSION HDL Cholesterol 54 >40 mg/dL HP CONVERSION Triglycerides 75 0 - 149 HP CONVERSION mg/dL LDL Calculated 92 0 - 130 HP CONVERSION mg/dL Comment: Specimen (Source) Anatomical Collection Method Collection Time Re ceived Time Location / / Volume Laterality 02/10/2008 5:29 PM PULLEY MORTISER OPERATOR Avis Marlow MD LAB_1 Performing Organization Address City/State/ZIP Code Phon e Number HP CONVERSION documented in this encounter Visit Diagnoses Not on filedocumented in this encounter Care Teams Decator Operator Relationship Specialty Start Date End Date Robin Duncan MD PCP - General 06/03/10 10/17/[address] [place] [address] documented as of this encounter
--- OUTSIDE RECORDS SUMMARY | 2021-12-07 20:35 | XMS_ITS | Encounter Summary ---
:1980 Author Organization [employer] Address [address] [place] [address] Care Team Providers Name Role Phone Robin Duncan MD Primary Care Provider Encounter Details Date Type Department Care Team Description 09/24/2007 Office Visit [facility] David Munoz MD [facility] [address] [facility] [address] [facility] [address] [place], [place] [address] [place], [place] [phone] (Wo rk) Social History Tobacco Use Types Packs/Day Years Used Date Smoking Tobacco: Never Alcohol Use Standard Drinks/Week Comments Not Asked 0 (1 standard drink = 0.6 oz pure alcoho l) Sex Assigned at Date Recorded Not on file documented as of this encounter Progress Notes Kennedy Munoz MD - 09/24/2007 12:01 AM CDT Progress Notes signed by Kennedy Munoz MD at 09/24/07 1314 Author: Kennedy Munoz MD Service: (none) Author Type: (none) Filed: 06/22/10 0549 Note Time: 09/24/07 0001 Status: Signed Flight Data Technician: Kennedy Munoz MD (Physician) SUBJECTIVE: 27-year-old male with complaints of acne. Has had acne since age 16. Mostly on his upper back and some on his chest. He has tried topical agents. Has tried oral biotics. Nothing seems to help much. He actually is doing as well as he does at the moment. Adverse Drug Reactions: See LastWord Medications: Reviewed. See Medication List in LastWord. OBJECTIVE: Vital Signs : Reviewed; See Flowsheet Charting in LastWord. Skin and upper back with multiple small pustules. There does appear to be some evidence of cystic scarring. ASSESSMENT: Acne PLAN: Patient is interested in pursuing Accutane. I have requested a skin Center consult LABS: FOLLOW UP CONSULTS REQUESTED: Skin Center IMAGING: *SH~DNS~SOAP documented in this encounter Plan of Treatment Not on filedocumented as of this encounter Visit Diagnoses Not on filedocumented in this encounter Care Teams Foreign Food Specialty Cook Relationship Specialty Start Date End Date Robin Duncan MD PCP - General 06/03/10 10/17/[address] [place] [address] documented as of this encounter
--- OUTSIDE RECORDS SUMMARY | 2021-12-07 20:35 | XMS_ITS | Encounter Summary ---
:1980 Author Organization [facility] Address [address] [place] [address] Care Team Providers Name Role Phone Robin Duncan MD Primary Care Provider Encounter Details Date Type Department Care Team Description 10/20/2007 PN Conversion Only [place] CONVER[place] [address] [facility] [place] [address] [place], [place] [address] (Wo rk) Social History Tobacco Use Types [...] Diagnosis Comme nts LIPID PANEL AND Routine 10/20/2007 5:27 PM Result s for this DIRECT LDL(IF CDT procedure are in NEEDED) the results section. COMPLETE BLOOD Routine 10/20/2007 5:27 PM Results for this COUNT-W/DIFF CDT procedure are i n the results section. AST Routine 10/20/2007 5:27 PM Results f or this CDT procedure are i n the results section. documented in this encounter Results Complete Blood Count-W/Diff (10/20/2007 5:27 PM CDT) [facility] Method Time Signature White Blood Cell 7.6 3.8 - 11.0 HP CONVERSIO N Count K/cmm Red Blood Cell 4.95 4.20 - HP CONVERSION Count 5.90 m/cmm Hemoglobin 15.4 13.4 - HP CONVERSION 17.5 gm/dL Hematocrit 43.5 39.0 - HP CONVERSION 51.0 % Mean Corpuscular 88.0 80.0 - HP CONVERSION Volume 100.0 fl Mean Corpuscular 31.1 27.0 - HP CONVERSION Hemoglobin 34.0 pg Mean Corpuscular 35.3 32.0 - HP CONVERSION Hemoglobin Conc 36.5 gm/dL [place] RDW 11.9 11.0 - HP CONVERSION 15.0 % Platelet Count 339 140 - 450 HP CONVERSION k/cmm Differential Auto-Dif No normal HP CONVERSION Verify range Neutrophils 4.0 2.0 - 7.5 HP CONVERSION Absolute Count K/cmm Neutrophil 53.3 50.0 - HP CONVERSION 75.0 % Lymphocyte % 32.3 20.0 - HP CONVERSION 40.0 % Monocyte 11.0 5.0 - 14.0 HP CONVERSION % Eosinophil 2.6 0.0 - 6.0 HP CONVERSION % Basophil % 0.8 0.0 - 2.0 HP CONVERSION % Specimen (Source) Anatomical Collection Method Collection Time Re ceived Time Location / / Volume Laterality 10/20/2007 5:27 PM CDT Avis Marlow MD LAB_1 Performing Organization Address City/State/ZIP Code Phon e Number HP CONVERSION AST (10/20/2007 5:27 PM CDT) [employer] Method Time Signature Aspartate 24 0 - 45 HP CONVERSION Aminotransferase U/L Specimen (Source) Anatomical Collection Method Collection Time Re ceived Time Location / / Volume Laterality 10/20/2007 5:27 PM CDT Avis Marlow MD LAB_1 Performing Organization Address City/State/ZIP Code Phon e Number HP CONVERSION Lipid Panel and Direct LDL(If Needed) (10/20/2007 5:27 PM CDT) [employer] Method Time Signature Length Of Fast 12.0 Hours HP CONVERSION Cholesterol/HDL 3.6 No normal HP CONVERSION Ratio Screen range Cholesterol 169 <200 mg/dL HP CONVERSION HDL Cholesterol 47 >40 mg/dL HP CONVERSION Triglycerides 97 0 - 149 HP CONVERSION mg/dL LDL Calculated 103 0 - 130 HP CONVERSION mg/dL Comment: Specimen (Source) Anatomical Collection Method Collection Time Re ceived Time Location / / Volume Laterality 10/20/2007 5:27 PM CDT Avis Marlow MD LAB_1 Performing Organization Address City/State/ZIP Code Phon e Number HP CONVERSION documented in this encounter Visit Diagnoses Not on filedocumented in this encounter Care Teams Felt Hanger Relationship Specialty Start Date End Date Robin Duncan MD PCP - General 06/03/10 10/17/12 [address] [address] [place] [address] documented as of this encounter
--- OUTSIDE RECORDS SUMMARY | 2021-12-07 20:35 | XMS_ITS | Encounter Summary ---
:1980 Author Organization [employer] Address [address] [place] [address] Care Team Providers Name Role Phone Robin Duncan MD Primary Care Provider Encounter Details Date Type Department Care Team Description 08/14/2008 Office Visit [facility] [place] [address] [place] [address] [place], [place] [id number] (Wo rk) Social History Tobacco Use Types Packs/Day Years Used Date Smoking Tobacco: Never Alcohol Use Standard Drinks/Week Comments Not Asked 0 (1 standard drink = 0.6 oz pure alcoho l) Sex Assigned at Date Recorded Not on file documented as of this encounter Last Filed Vital Signs Vital Sign Reading Time Taken Comments Blood Pressure 111/71 08/14/2008 4:56 PM CDT Pulse 72 08/14/2008 4:56 PM CDT Temperature 36.8 ??C (98.2 ??F) 08/14/2008 4:56 PM CDT C: 36 .8 C Respiratory Rate 14 08/14/2008 4:56 PM CDT Oxygen Saturation - - Inhaled Oxygen Concentration - - Weight - - Height - - Body Mass Index - - documented in this encounter Progress Notes Erick Mead MD - 08/14/2008 12:01 AM CDT Progress Notes signed by Erick Mead MD at 09/11/08 1007 Author: Erick Mead MD Service: (none) Author Type: Physician Filed: 06/22/10 1401 Note Time: 08/14/08 0001 Status: Signed Living Manager: Erick Mead MD (Physician) NAME: LORA STEWART MR#: [id number] ACCT: [id number] VISIT: [id number] DICTATING CLINICIAN: ERICK MEAD MD CONFIRM #: [id number] LOC: 520 CLINIC PROGRESS NOTE DATE OF VISIT: 08/14/2008 SUBJECTIVE: CHIEF COMPLAINT: Right hand 5th digit nail through the finger. HPI: Pleasant 28-year-old comes in today complaining of an injury to his left 5th finger. Patient was working on his house this afternoon at about 4 o'clock, and he says he shot a pin nail through his left 5th finger. It went in on the backside and went all the way through his nail and shot straight through his finger. He had some mild bleeding at the base of his nail, but that is under good control. Tetanus shot is not up to date, which is the main reason that he came in. He can move his finger without any difficulty and there is really not that much discomfort. PAST MEDICAL HISTORY: Healthy. PAST SURGICAL HISTORY: None. MEDICATIONS: None. ADR/ALLERGIES: NO KNOWN DRUG ALLERGIES. SOCIAL HISTORY: Patient is a cigarette smoker. OBJECTIVE: VS: BP: 111/71. T: 98.2. P: 72. R: 14. GENERAL: Alert and oriented in no apparent distress. LUNGS: Clear. HEART: Regular. Patient's left 5th finger does have a small hole in the palmar surface of his finger and it goes through the base of his nail. It is mildly bleeding. No need for stitches. He has good flexion and extension. There is minimal pain. We did soak the finger in Shur-Clens for 20 minutes. X-ray does reveal a fracture of the distal 5th finger. ASSESSMENT: 1. Puncture wound right 5th finger. 2. Tuft fracture. PLAN: 1. Boostrix was given. 2. The patient was placed in a finger splint. He was also given antibiotics Augmentin 875 one p.o. b.i.d. x10 days. Patient will follow up with Hand Ortho in approximately 2-3 days. Follow up with signs of infection or pain control. BECKY:[id number] C: 08/15/08 10:15 CONFIRM #: [id number] documented in this encounter Plan of Treatment Not on filedocumented as of this encounter Procedures Procedure Name Priority Date/Time Associated Diagnosis Comme nts XR FINGER RT LITTLE Routine 08/14/2008 7:27 PM Re sults for this 2+ VIEWS CDT procedure are i n the results section. documented in this encounter Results XR Finger Rt Little 3 Views (08/14/2008 7:27 PM CDT) Anatomical Region Laterality Modality Upper Extremity, Hand Other Specimen (Source) Anatomical Location Collection Method / Collectio n Time Received Time / Laterality Volume Narrative 08/14/2008 7:27 PM CDT There is acute nondisplaced fracture in the tuft of the distal phalanx. ??Small old fracture fragment s een at the base of the proximal phalanx, with mild subcortical cystic changes. [id number] Dictating EDUAR ARGUELLES RADIOLOGIST Procedure Note Eduar Gutierrez MD - 05/07/2016 There is acute nondisplaced fracture in the tuft of the distal phalanx. Small old fracture fragment see n at the base of the proximal phalanx, with mild subcortical cystic changes. [id number] Dictating EDUAR ARGUELLES RADIOLOGIST Erick Mead MD RAD GD documented in this encounter Visit Diagnoses Not on filedocumented in this encounter Care Teams Animal Shelter Clerk Relationship Specialty Start Date End Date Robin Duncan MD PCP - General 06/03/10 10/17/12 [address] [address] [address] documented as of this encounter
--- OUTSIDE RECORDS SUMMARY | 2021-12-07 20:35 | XMS_ITS | Encounter Summary ---
:1980 Author Organization [employer] Address [address] [place] [address] Care Team Providers Name Role Phone Robin Duncan MD Primary Care Provider Encounter Details Date Type Department Care Team Description 04/14/2007 Office Visit [facility] [address], Care TANYA [address] [place], [place] [address] [place] [address] [phone] (Wo rk) Social History Tobacco Use Types Packs/Day Years Used Date Smoking Tobacco: Never Alcohol Use Standard Drinks/Week Comments Not Asked 0 (1 standard drink = 0.6 oz pure alcoho l) Sex Assigned at Date Recorded Not on file documented as of this encounter Last Filed Vital Signs Vital Sign Reading Time Taken Comments Blood Pressure 126/89 04/14/2007 7:07 PM BOILER TENDERS SUPERVISOR Pulse 90 04/14/2007 7:07 PM BOILER TENDERS SUPERVISOR Temperature 38.2 ??C (100.8 ??F) 04/14/2007 7:07 PM BOILER TENDERS SUPERVISOR C: 3 8.2 C Respiratory Rate 16 04/14/2007 7:07 PM BOILER TENDERS SUPERVISOR Oxygen Saturation - - Inhaled Oxygen Concentration - - Weight - - Height - - Body Mass Index - - documented in this encounter Progress Notes Precious Joe PA-C - 04/14/2007 12:01 AM CST Progress Notes signed by Precious Joe PA-C at 04/20/07 1538 Author: Precious Joe PA-C Service: (none) Author Type: Physician Senior Tax Manager Filed: 06/22/10 0057 Note Time: 04/14/072012 Status: Signed Steel Rule Die Maker Apprentice: Precious Joe PA-C (Physician Senior Tax Manager) NAME: LORA STEWART MR#: [id number] ACCT: [id number] VISIT: [id number] DICTATING CLINICIAN: PRECIOUS JOE PA-C JOB: [id number] LOC: 420 CLINIC PROGRESS NOTE DATE OF VISIT: 04/14/2007 SUBJECTIVE: : 1980. This is a 27-year-old gentleman who presents today with a chief complaint of increased sore throat, nasal congestion, cough, and fever. He has had sinus congestion and cough for the last week. Today, his sore throat worsened and he started running a fever. He also feels nauseous today. No vomiting. 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 He does not smoke. No history of asthma. PAST MEDICAL HISTORY: Reviewed in LastWord. MEDICATIONS: Reviewed in LastWord. ADR/ALLERGIES: REVIEWED IN LAST[facility]. OBJECTIVE: VS: BP: 126/69. T: 100.2. P: 90. R: 16. A 27-year-old gentleman in no acute distress. He appears ill, but he is nontachypneic, nontoxic appearing. Conjunctivae clear bilaterally. Bilateral tympanic membranes are pearly jarquin, normal light reflex. External ear canals are clear. He does have some maxillary sinus tenderness on palpation, no frontal sinus tenderness. Nasal mucosa appears congested. Pharynx slightly injected, nonedematous. No exudates noted. No cervical or supraclavicular adenopathy. LUNGS: Clear to auscultation anteriorly and posteriorly. HEART: Normal S1 and S2, without murmur or click. Rapid Strep Test is negative. ASSESSMENT: Sinusitis and bronchitis. PLAN: Zithromax Z-Stefan as directed. Should see improvement over the next 24-48 hours. If does not, or if worsens, he should be reevaluated. [id number]:[id number] C: 04/15/07 19:15 DOCUMENT: [id number] ER TENDERS SUPERVISOR documented in this encounter Plan of Treatment Not on filedocumented as of this encounter Visit Diagnoses Not on filedocumented in this encounter Care Teams Miniature Train Driver Relationship Specialty Start Date End Date Robin Duncan MD PCP - General 06/03/10 10/17/[address] [place] [address] documented as of this encounter
--- OUTSIDE RECORDS SUMMARY | 2021-12-07 20:35 | XMS_ITS | Encounter Summary ---
:1980 Author Organization [employer] Address [address] [facility] [place] [address] Care Team Providers Name Role Phone Robin Duncan MD Primary Care Provider Encounter Details Date Type Department Care Team Description 01/02/2009 Office Visit [facility] [place] [address] [place] [address] [place], [place] [phone] (Wo rk) Social History Tobacco Use Types Packs/Day Years Used Date Smoking Tobacco: Never Alcohol Use Standard Drinks/Week Comments Not Asked 0 (1 standard drink = 0.6 oz pure alcoho l) Sex Assigned at Date Recorded Not on file documented as of this encounter Last Filed Vital Signs Vital Sign Reading Time Taken Comments Blood Pressure 114/72 01/02/2009 11:12 AM MOBILE MANAGER Pulse 64 01/02/2009 11:12 AM MOBILE MANAGER Temperature - - Respiratory Rate - - Oxygen Saturation - - Inhaled Oxygen Concentration - - Weight 75.3 kg (165 lb 15.8 oz) 01/02/2009 11:12 AM C: 75.3kg MOBILE MANAGER Height - - Body Mass Index 22.05 08/22/2005 4:15 PM CDT documented in this encounter Progress Notes Conor Plata MD - 01/02/2009 12:01 AM CST Progress Notes signed by Conor Plata MD at 01/10/09 8265 Author: Conor Plata MD Service: (none) Author Type: Physician Filed: 06/22/10 1738 Note Time: 01/02/09 0001 Status: Signed Electronic Plotting System Operator: Conor Plata MD (Physician) NAME: LORA STEWART MR#: [id number] ACCT: [id number] VISIT: [id number] DICTATING CLINICIAN: CONOR PLATA MD CONFIRM #: [id number] LOC: 502 CLINIC PROGRESS NOTE DATE OF VISIT: 01/02/2009 SUBJECTIVE: : 1980. CHIEF COMPLAINT: Blood in the stool. HISTORY OF PRESENT ILLNESS: Lora is a 28-year-old gentleman who today came in with concerns of he has noted some streak of blood in the toilet this morning. He never had this before. His bowel movements are usually everyday. Sometimes is soft. Sometimes he gets constipation. He did not have any abdominal pain, nausea, or vomiting, occasional heartburn, burping, bloating. According to the patient, he does have burning in the rectal area after a bowel movement for the last 3-4 months and also he has pain with bowel movements, usually 5/10 in severity, so patient today came in for evaluation. According to the patient, he also does get occasional diarrhea alternating with constipation and also sometimes incomplete evacuation of the bowel movement and also passes gas that has a foul smell. REVIEW OF SYSTEMS: Negative. PAST MEDICAL HISTORY: None. MEDICATIONS: Lorazepam p.r.n. ADR/ALLERGIES: REVIEWED FROM LAST[employer] TODAY. SOCIAL HISTORY: Patient is single, no smoking, occasional use of alcohol. FAMILY HISTORY: No history of any colon cancer or inflammatory bowel disease in the family. OBJECTIVE: VS: BP: 114/72. P: 64. Wt: 166 lb. GENERAL: Patient is comfortable, no acute distress. CARDIOVASCULAR: S1 and S2 regular. LUNGS: Clear to auscultation bilaterally. ABDOMEN: Soft, nondistended, nontender, positive bowel sounds. RECTAL: Patient does have a small fissure present on the rectal area around 5-6 o'clock position. I did anoscope on the patient. I did not see any abnormality in the mucosa or hemorrhoids. ASSESSMENT: Anal fissure and probable irritable bowel syndrome. PLAN: I will check the CBC and Hemoccult cards on the patient. Given a prescription of Anusol-HC cream and suppository to use p.r.n. Side effects reviewed. Recommend to follow up if the symptoms are not improving, which the patient agreed. Also recommend to increase fluid intake, fruits and vegetables and fiber intake, and regular exercise. SS:[id number] C: 01/02/09 14:02 CONFIRM #: [id number] LE MANAGER documented in this encounter Plan of Treatment Not on filedocumented as of this encounter Visit Diagnoses Not on filedocumented in this encounter Care Teams Chain Carrier Relationship Specialty Start Date End Date Robin Duncan MD PCP - General 06/03/10 10/17/12 [address] [address] [place] [id number] documented as of this encounter
--- OUTSIDE RECORDS SUMMARY | 2021-12-07 20:35 | XMS_ITS | Encounter Summary ---
:1980 [facility] Address [address] [place] [address] Care Team Providers Name Role Phone Robin Duncan MD Primary Care Provider Encounter Details Date Type Department Care Team Description 08/16/2008 PN Conversion Only [facility] [address] [address] [place] [address] Social History Tobacco Use Types Packs/Day Years Used Date Smoking Tobacco: Never Alcohol Use Standard Drinks/Week Comments Not Asked 0 (1 standard drink = 0.6 oz pure alcoho l) Sex Assigned at Date Recorded Not on file documented as of this encounter Plan of Treatment Not on filedocumented as of this encounter Visit Diagnoses Not on filedocumented in this encounter Care Teams Manager Telemetry Relationship Specialty Start Date End Date Robin Duncan MD PCP - General 06/03/10 10/17/[address] [place] [id number] documented as of this encounter
--- OUTSIDE RECORDS SUMMARY | 2021-12-07 20:35 | XMS_ITS | Encounter Summary ---
:1980 Author Organization [facility] Address [address] [facility] [place] [address] Care Team Providers Name Role Phone Robin Duncan MD Primary Care Provider Encounter Details Date Type Department Care Team Description 12/04/2007 Nursing Visit [facility] [address] [facility] Heriberto Jurado MD Medicine [address] [place] [address] [place] [address] Social History Tobacco Use Types [...] on filedocumented in this encounter Care Teams Portal Architect Relationship Specialty Start Date End Date Robin Duncan MD PCP - General 06/03/10 10/17/12 [address] [address] [place] [id number] documented as of this encounter
--- OUTSIDE RECORDS SUMMARY | 2021-12-07 20:35 | XMS_ITS | Encounter Summary ---
:1980 Author Organization [facility] Address [address] [place] [address] Care Team Providers Name Role Phone Robin Duncan MD Primary Care Provider Encounter Details Date Type Department Care Team Description 06/13/2008 PN Conversion Only [facility] Luanne Figueroa, [address] [facility] [address], [place] [address] [address] [place], [place] [phone] (Wo rk) Social History Tobacco Use Types Packs/Day Years Used Date Smoking Tobacco: Never Alcohol Use Standard Drinks/Week Comments Not Asked 0 (1 standard drink = 0.6 oz pure alcoho l) Sex Assigned at Date Recorded Not on file documented as of this encounter Plan of Treatment Not on filedocumented as of this encounter Procedures Procedure Name Priority Date/Time Associated Comments Diagnosis THYROID STIMULATING Routine 06/13/2008 2:10 PM Re sults for this HORMONE CDT procedure are i n the results section. documented in this encounter Results Thyroid Stimulating Hormone (06/13/2008 2:10 PM CDT) P athologist Signature Thyroid 1.10 0.20 - HP CONVERSION Stimulating 4.50 Hormone uIU/mL Specimen (Source) Anatomical Collection Method Collection Time Re ceived Time Location / / Volume Laterality 06/13/2008 2:10 PM CDT Luanne Umanzor FRENCH FOLDING MACHINE OPERATOR, ACUTE CARE REGISTERED NURSE LAB_1 Performing Organization Address City/State/ZIP Code Phon e Number HP CONVERSION documented in this encounter Visit Diagnoses Not on filedocumented in this encounter Care Teams Turret Lathe Operator Relationship Specialty Start Date End Date Robin Duncan MD PCP - General 06/03/10 10/17/[address] [place] [address] documented as of this encounter
--- OUTSIDE RECORDS SUMMARY | 2021-12-07 20:35 | XMS_ITS | Encounter Summary ---
:1980 Author Organization [facility] Address [address] [facility] [place] [address] Care Team Providers Name Role Phone Robin Duncan MD Primary Care Provider Encounter Details Date Type Department Care Team Description 12/14/2007 Office Visit [facility] [place] [address] [place] [address] [place] [address] [phone] (Wo rk) Social History Tobacco Use Types Packs/Day Years Used Date Smoking Tobacco: Never Alcohol Use Standard Drinks/Week Comments Not Asked 0 (1 standard drink = 0.6 oz pure alcoho l) Sex Assigned at Date Recorded Not on file documented as of this encounter Last Filed Vital Signs Vital Sign Reading Time Taken Comments Blood Pressure 120/80 12/14/2007 4:21 PM CDT Pulse 72 12/14/2007 4:21 PM CDT Temperature - - Respiratory Rate - - Oxygen Saturation - - Inhaled Oxygen Concentration - - Weight 81.1 kg (178 lb 12.7 oz) 12/14/2007 4:21 PM CDT C: 81.1kg Height - - Body Mass Index 23.75 08/22/2005 4:15 PM CDT documented in this encounter Progress Notes Robin Duncan MD - 12/14/2007 12:01 AM CDT Progress Notes signed by Robin Duncan MD at 12/15/07 1231 Author: Robin Duncan MD Service: (none) Author Type: Physician Filed: 06/22/10 0746 Note Time: 12/14/07 0001 Status: Signed Wet End Supervisor: Robin Duncan MD (Physician) NAME: LORA STEWART MR#: [id number] ACCT: [id number] VISIT: [id number] DICTATING CLINICIAN: Robin Duncan MD CONFIRM #: [id number] LOC: 502 CLINIC PROGRESS NOTE DATE OF VISIT: 12/14/2007 SUBJECTIVE: Lora is a 27-year-old gentleman here today for discussion of STDs. He is in a relationship and has been for many months now. It is committed and monogamous. His concern is the fact that his new partner has genital herpes. They have been taking precautions such as using condoms, and they have only had sexual intercourse on just a few occasions he says. The last time they had intercourse was 10 days ago and the condom broke. He is very concerned about the possibility of herpes even though she had no active lesions at that time. He has not had any sores or lesions identified. He has had no pain. He has had no penile discharge or dysuria. He has had no other signs of infection. He is concerned he has not been checked for STDs since he started this relationship. He has had multiple partners in the past, and tested negative for HIV in the past. He has never had gonorrhea, chlamydia or others, but he wants to be sure. OBJECTIVE: VS: BP: 120/80. P: 72. Wt: 178. This is a young gentleman in no acute distress. Examination reveals normal external male genitalia with bilaterally descended testes. He is circumcised. He has no obvious lesions on the penis, scrotum, or pubic area. No penile discharge identified. Further exam done at the end of the visit shows no deformity of the hips or low back. He has tenderness to palpation over the anterior superior iliac crest, and tenderness with flexion at the hip, right at that point. No tenderness over the greater trochanter, the anterior hip or the SI joint. He has got no weakness. Straight leg raise is negative bilaterally. ASSESSMENT: 1. STD screening. 2. Anterior iliac apophysitis. PLAN: 1. With respect to the STD screening, I talked to him at some length in particular about herpes and its implications, especially for a partner in a committed monogamous relationship, and that using condoms, avoiding intercourse with lesions, and having a partner on medications are all important steps to reduce risks, but not eliminate them entirely. We talked about the incubation period, and the likelihood that he would have lesions show up, it diminishes beyond 2 weeks, so he is likely from his most recent exposure not going to have a primary infection. We also talked about STD screening, and he did want to proceed with HIV and chlamydia screening which we ordered. 2. With respect to the hip pain that he mentioned afterward, he has no specific injury, but he does wear a heavy tool belt that hangs right on the iliac crest. We talked about trying to pad that, using ice and ibuprofen, as well as stretching of the hip flexors. He is going to try those things and follow up if he has further questions or concerns. DJS:[id number] C: 12/15/07 09:43 CONFIRM #: [id number] documented in this encounter Plan of Treatment Not on filedocumented as of this encounter Visit Diagnoses Not on filedocumented in this encounter Care Teams Hot Top Liner Helper Relationship Specialty Start Date End Date Robin Duncan MD PCP - General 06/03/10 10/17/12 [address] [address] [place] [address] documented as of this encounter
--- OUTSIDE RECORDS SUMMARY | 2021-12-07 20:35 | XMS_ITS | Encounter Summary ---
:1980 Author Organization [employer] Address [address] [place] [address] Care Team Providers Name Role Phone Robin Duncan MD Primary Care Provider Reason for Visit Reason Comments Other Encounter Details Date Type Department Care Team Description 04/15/2007 Telephone [facility] [address] Kayleen Rahman MD Other Care [address] [place] [address] [place], [place] [id number] [phone] Social History Tobacco Use Types Packs/Day Years Used Date Smoking Tobacco: Never Alcohol Use Standard Drinks/Week Comments Not Asked 0 (1 standard drink = 0.6 oz pure alcoho l) Sex Assigned at Date Recorded Not on file documented as of this encounter Progress Notes River Quinones - 04/15/2007 12:02 PM CST Phone Note filed by River Quinones at 06/19/10 3542 Author: River Quinones Service: (none) Author Type: (none) Filed: 06/19/10 9951 Note Time: 04/15/07 1202 Status: Signed Dispatcher Motor Vehicle: Benedict Peter 04/15/07 1155 Called and spoke to pt. Informed him of positive rst culture results,to stay on Zpack and get a new tooth brush. Not contagious after on rx x 24 hours. Return to clinic if not improving or sx get worse. Pt understood and stated he had no futher questions. Created on 15Apr2007 12:02pm by RIVER QUINONES Acknowledged by KAYLEEN RAHMAN on 10:48am RAFT FUSELAGE FRAMER documented in this encounter Plan of Treatment Not on filedocumented as of this encounter Visit Diagnoses Not on filedocumented in this encounter Care Teams Clerk To Justice Relationship Specialty Start Date End Date Robin Duncan MD PCP - General 06/03/10 10/17/12 [address] [address] [place] [address] documented as of this encounter
--- OUTSIDE RECORDS SUMMARY | 2021-12-07 20:35 | XMS_ITS | Encounter Summary ---
:1980 Author Organization [employer] [facility] Address [address] [place] [address] Care Team Providers Name Role Phone Robin Duncan MD Primary Care Provider Encounter Details Date Type Department Care Team Description 03/21/2008 PN Conversion Only [facility] Ally Iglesias, [address] [place] [address] [address] [facility] [address] [place] [address] (Wo rk) Social History Tobacco Use Types [...] Diagnosis Comme nts LIPID PANEL AND Routine 03/21/2008 5:10 PM Result s for this DIRECT LDL(IF KELLER MACHINE OPERATOR procedure are in NEEDED) the results section. COMPLETE BLOOD Routine 03/21/2008 5:10 PM Results for this COUNT-W/DIFF KELLER MACHINE OPERATOR procedure are i n the results section. AST Routine 03/21/2008 5:10 PM Results f or this KELLER MACHINE OPERATOR procedure are i n the results section. documented in this encounter Results Complete Blood Count-W/Diff (03/21/2008 5:10 PM KELLER MACHINE OPERATOR) [facility] Method Time Signature White Blood Cell 9.2 3.8 - 11.0 [facility] CONVERSIO N Count K/cmm Red Blood Cell 5.32 4.20 - HP CONVERSION Count 5.90 m/cmm Hemoglobin 15.5 13.4 - HP CONVERSION 17.5 gm/dL Hematocrit 46.4 39.0 - HP CONVERSION 51.0 % Mean Corpuscular 87.1 80.0 - HP CONVERSION Volume 100.0 fl Mean Corpuscular 29.1 27.0 - HP CONVERSION Hemoglobin 34.0 pg Mean Corpuscular 33.4 32.0 - HP CONVERSION Hemoglobin Conc 36.5 gm/dL Radium RDW 12.1 11.0 - HP CONVERSION 15.0 % Platelet Count 368 140 - 450 HP CONVERSION k/cmm Differential Auto-Dif No normal HP CONVERSION Verify range Neutrophils 6.2 2.0 - 7.5 HP CONVERSION Absolute Count K/cmm Neutrophil 67.2 50.0 - HP CONVERSION 75.0 % Lymphocyte % 21.9 20.0 - HP CONVERSION 40.0 % Monocyte 8.4 5.0 - 14.0 HP CONVERSION % Eosinophil 1.6 0.0 - 6.0 HP CONVERSION % Basophil % 0.9 0.0 - 2.0 HP CONVERSION % Specimen (Source) Anatomical Collection Method Collection Time Re ceived Time Location / / Volume Laterality 03/21/2008 5:10 PM KELLER MACHINE OPERATOR Ally Iglesias MD LAB_1 Performing Organization Address City/State/ZIP Code Phon e Number HP CONVERSION AST (03/21/2008 5:10 PM KELLER MACHINE OPERATOR) [employer] Method Time Signature Aspartate 24 0 - 45 HP CONVERSION Aminotransferase U/L Specimen (Source) Anatomical Collection Method Collection Time Re ceived Time Location / / Volume Laterality 03/21/2008 5:10 PM KELLER MACHINE OPERATOR Ally Iglesias MD LAB_1 Performing Organization Address City/State/ZIP Code Phon e Number HP CONVERSION Lipid Panel and Direct LDL(If Needed) (03/21/2008 5:10 PM KELLER MACHINE OPERATOR) [employer] Method Time Signature Length Of Fast 12.0 Hours HP CONVERSION Cholesterol/HDL 3.0 No normal HP CONVERSION Ratio Screen range Cholesterol 161 <200 mg/dL HP CONVERSION HDL Cholesterol 53 >40 mg/dL HP CONVERSION Triglycerides 88 0 - 149 HP CONVERSION mg/dL LDL Calculated 90 0 - 130 HP CONVERSION mg/dL Comment: Specimen (Source) Anatomical Collection Method Collection Time Re ceived Time Location / / Volume Laterality 03/21/2008 5:10 PM KELLER MACHINE OPERATOR Ally Iglesias MD LAB_1 Performing Organization Address City/State/ZIP Code Phon e Number HP CONVERSION documented in this encounter Visit Diagnoses Not on filedocumented in this encounter Care Teams Senior Care Assistant Relationship Specialty Start Date End Date Robin Duncan MD PCP - General 06/03/10 10/17/[address] [place] [address] documented as of this encounter
--- OUTSIDE RECORDS SUMMARY | 2021-12-07 20:35 | XMS_ITS | Encounter Summary ---
:1980 Author Organization [facility] Address [address] [place] [address] Care Team Providers Name Role Phone Robin Duncan MD Primary Care Provider Encounter Details Date Type Department Care Team Description 09/24/2007 PN Conversion Only DENHOFF CONVERSI ON Avis Marlow [address] [place] [address] [place], [place] [address] (Wo rk) Social History Tobacco Use Types [...] Diagnosis Comme nts LIPID PANEL AND Routine 09/24/2007 3:29 PM Result s for this DIRECT LDL(IF CDT procedure are in NEEDED) the results section. COMPLETE BLOOD Routine 09/24/2007 3:29 PM Results for this COUNT-W/DIFF CDT procedure are i n the results section. AST Routine 09/24/2007 3:29 PM Results f or this CDT procedure are i n the results section. documented in this encounter Results Complete Blood Count-W/Diff (09/24/2007 3:29 PM CDT) [facility] Method Time Signature White Blood Cell 7.6 3.8 - 11.0 HP CONVERSIO N Count K/cmm Red Blood Cell 5.08 4.20 - HP CONVERSION Count 5.90 m/cmm Hemoglobin 15.8 13.4 - HP CONVERSION 17.5 gm/dL Hematocrit 44.1 39.0 - HP CONVERSION 51.0 % Mean Corpuscular 86.8 80.0 - HP CONVERSION Volume 100.0 fl Mean Corpuscular 31.1 27.0 - HP CONVERSION Hemoglobin 34.0 pg Mean Corpuscular 35.8 32.0 - HP CONVERSION Hemoglobin Conc 36.5 gm/dL [place] RDW 11.8 11.0 - HP CONVERSION 15.0 % Platelet Count 353 140 - 450 HP CONVERSION k/cmm Differential Auto-Dif No normal HP CONVERSION Verify range Neutrophils 4.4 2.0 - 7.5 HP CONVERSION Absolute Count K/cmm Neutrophil 57.2 50.0 - HP CONVERSION 75.0 % Lymphocyte % 27.8 20.0 - HP CONVERSION 40.0 % Monocyte 10.7 5.0 - 14.0 HP CONVERSION % Eosinophil 3.8 0.0 - 6.0 HP CONVERSION % Basophil % 0.5 0.0 - 2.0 HP CONVERSION % Specimen (Source) Anatomical Collection Method Collection Time Re ceived Time Location / / Volume Laterality 09/24/2007 3:29 PM CDT Avis Marlow MD LAB_1 Performing Organization Address City/State/ZIP Code Phon e Number HP CONVERSION Lipid Panel and Direct LDL(If Needed) (09/24/2007 3:29 PM CDT) [facility] Time Signature Length Of Fast 12.0 Hours HP CONVERSION Cholesterol/HDL 2.6 No normal HP CONVERSION Ratio Screen range Cholesterol 159 <200 mg/dL HP CONVERSION HDL Cholesterol 62 >40 mg/dL HP CONVERSION Triglycerides 70 0 - 149 HP CONVERSION mg/dL LDL Calculated 83 0 - 130 HP CONVERSION mg/dL Comment: Specimen (Source) Anatomical Collection Method Collection Time Re ceived Time Location / / Volume Laterality 09/24/2007 3:29 PM CDT Avis Marlow MD LAB_1 Performing Organization Address City/State/ZIP Code Phon e Number HP CONVERSION AST (09/24/2007 3:29 PM CDT) [facility] Method Time Signature Aspartate 29 0 - 45 HP CONVERSION Aminotransferase U/L Specimen (Source) Anatomical Collection Method Collection Time Re ceived Time Location / / Volume Laterality 09/24/2007 3:29 PM CDT Avis Marlow MD LAB_1 Performing Organization Address City/State/ZIP Code Phon e Number HP CONVERSION documented in this encounter Visit Diagnoses Not on filedocumented in this encounter Care Teams Staff Design Engineer Relationship Specialty Start Date End Date Robin Duncan MD PCP - General 06/03/10 10/17/[address] [place] [address] documented as of this encounter
--- OUTSIDE RECORDS SUMMARY | 2021-12-07 20:35 | XMS_ITS | Encounter Summary ---
:1980 [facility] Organization [facility] Address [address] [place] [address] Care Team Providers Name Role Phone Robin Duncan MD Primary Care Provider Encounter Details Date Type Department Care Team Description 05/24/2008 PN Conversion Only [place] CONVERSRamon Blanco, [address] [place] [address] [address] [place] [address] Social History Tobacco Use Types Packs/Day Years [...] Diagnosis Comme nts STREP GROUP A Routine 05/24/2008 5:31 PM Results for this ANTIGEN TEST CDT procedure are i n the results section. BETA STREP FOLLOWUP Routine 05/24/2008 5:31 PM Re sults for this CDT procedure are i n the results section. documented in this encounter Results Strep Group A Antigen Test (05/24/2008 5:31 PM CDT) Analysis Performed At Patho logist Time Signature Strep Group A Negative Negative HP CONVERSION Antigen Test Comment: Culture to follow. Specimen (Source) Anatomical Collection Method Collection Time Re ceived Time Location / / Volume Laterality 05/24/2008 5:31 PM CDT Ramon Cedillo MD LAB_1 Performing Organization Address City/State/ZIP Code Phon e Number HP CONVERSION Beta Strep Followup (05/24/2008 5:31 PM CDT) P athologist Signature Strep Screen SEE TEXT HP CONVERSION Comment: Patient: LORA STEWART Rapid Strep Follow up Culture ? Collected: ??[id number] ??[id number] Source: Throat ?Processed: ??[id number] ??[id number] Final Report ------ ?[id number] ??[id number] No beta hemolytic Strep group A isolated . Specimen (Source) Anatomical Collection Method Collection Time Re ceived Time Location / / Volume Laterality 05/24/2008 5:31 PM CDT Ramon Cedillo MD LAB_1 Performing Organization Address City/State/ZIP Code Phon e Number HP CONVERSION documented in this encounter Visit Diagnoses Not on filedocumented in this encounter Care Teams Grinder And Honer Operator Automatic Relationship Specialty Start Date End Date Robin Duncan MD PCP - General 06/03/10 10/17/12 [address] [place] [id number] documented as of this encounter
--- OUTSIDE RECORDS SUMMARY | 2021-12-07 20:35 | XMS_ITS | Encounter Summary ---
:1980 Author Organization [facility] Address [address] [place] [address] Care Team Providers Name Role Phone Robin Duncan MD Primary Care Provider Reason for Visit Reason Comments Other Encounter Details Date Type Department Care Team Description 10/24/2008 Telephone [facility], Message Other [address] [place], [place] [id number] Social History Tobacco Use Types Packs/Day Years Used Date Smoking Tobacco: Never Alcohol Use Standard Drinks/Week Comments Not Asked 0 (1 standard drink = 0.6 oz pure alcoho l) Sex Assigned at Date Recorded Not on file documented as of this encounter [facility], Message - 10/24/2008 10:42 AM CDT Phone Note filed by Donews at 06/21/10 1022 Author: Donews Service: (none) Author Type: (none) Filed: 06/21/10 1022 Note Time: 10/24/08 1042 Status: Signed Can Repairer: Donews (Resource) Front Line Sx Call Caller Name/Relationship:pt Primary Chief Contract Officer:anyone/Wallace Symptom or request?He fell 8 ft from a latter and landed on butt cheek and injured tail bone. Needs advice Is appointment scheduled & when?n Candle Molder Machine:pt Best call back number:[phone] Is it OK to leave a confidential message on this voicemail?y *ECODE~PNSX2 Created on 24Oct2008 10:42am by ROSALIA WARNER M On [id number] 10:53am ROSLYN LACKEY wrote: CLINICIAN FOLLOW-UP: CHANDLER (note is complete). IMPRESSION: Back Pain. SYMPTOMS: Pt is 28 yr old man calling. About 1 hour ago he fell off ladder about 8 ft and landed on left butt cheek. He thinks he broke his tailbone as it is quite sore. Hurts to lift leg to go up steps. Denies 911/ER symptoms CARE ADVICE: See Today in Office--go to Advised to call back if any of the following occur: symptoms worsen or persist, any other questions or concerns. PLAN: GO TO URGENT CARE NOW .Also advised ice, ibuprofen, use donut to sit, do not get constipated if tailbone injury, avoid sitting. Patient/Caller agrees with plan and denies additional questions. References Used: [facility] Adult Telephone Protocols--Back Pain. Call Complete. *SH~THOMP~BACKPAIN ~ CLEANER OPERATOR documented in this encounter Plan of Treatment Not on filedocumented as of this encounter Visit Diagnoses Not on filedocumented in this encounter Care Teams Suction Plate Roller Hand Relationship Specialty Start Date End Date Robin Duncan MD PCP - General 06/03/10 10/17/12 [address] [place] [address] documented as of this encounter
--- OUTSIDE RECORDS SUMMARY | 2021-12-07 20:35 | XMS_ITS | Encounter Summary ---
:1980 Author Organization [facility] Address [address] [place] [address] Care Team Providers Name Role Phone Robin Duncan MD Primary Care Provider Encounter Details Date Type Department Care Team Description 02/16/2008 Office Visit [facility] Avis Marlow [facility] [place] [address] [place], [place] [address] [place] [address] [phone] (Wo rk) Social History Tobacco Use Types Packs/Day Years Used Date Smoking Tobacco: Never Alcohol Use Standard Drinks/Week Comments Not Asked 0 (1 standard drink = 0.6 oz pure alcoho l) Sex Assigned at Date Recorded Not on file documented as of this encounter Progress Notes Avis Marlow MD - 02/16/2008 12:01 AM CST Progress Notes signed by Avis Marlow MD at 02/16/08 1516 Author: Avis Marlow MD Service: (none) Author Type: (none) Filed: 06/22/10 0922 Note Time: 02/16/08 0001 Status: Signed Wood Machine Carver: Avis Marlow MD (Physician) Subjective: 27 year old male who has completed 5 months of accutane. Clinical response: excellent , recent inflammatory nodules. Side effects: Dryness of the lips, treated with Vaseline. No symptoms of depression. No headaches. No other side effects. Counseling: Patient counseled on the following -drug should not be shared with any other individual -blood should not be donated while taking Accutane or for one month following completion of therapy -patient has been compliant with program requirements Dosage change: complete remaining accutane Month of Medications Useage: 5th month Objective : This is a patient who is alert and oriented times 3. Left cheek : rash with slight crusty appearance to it. Lab results: Blood tests- ok Assessment: 1. severe to moderate acne- completed 5 months 2. Folliculits left temporal area Plan: 1. Follow-up in one month to obtain last set of lab work 2. Treatment with Vaseline for lip dryness discussed 3. mupiriocin oint bid for 10 days *SH~DNS~Custom1 E MANGER documented in this encounter Plan of Treatment Not on filedocumented as of this encounter Visit Diagnoses Not on filedocumented in this encounter Care Teams Lead Sustainability Specialist Relationship Specialty Start Date End Date Robin Duncan MD PCP - General 06/03/10 10/17/12 [address] [place] [address] documented as of this encounter
--- OUTSIDE RECORDS SUMMARY | 2021-12-07 20:35 | XMS_ITS | Encounter Summary ---
:1980 Author Organization [facility] Address [address] [place] [address] Care Team Providers Name Role Phone Robin Duncan MD Primary Care Provider Encounter Details Date Type Department Care Team Description 05/24/2008 Office Visit [facility] [place] [address] [place] [address] [place] [address] [phone] Social History Tobacco Use Types Packs/Day Years Used Date Smoking Tobacco: Never Alcohol Use Standard Drinks/Week Comments Not Asked 0 (1 standard drink = 0.6 oz pure alcoho l) Sex Assigned at Date Recorded Not on file documented as of this encounter Last Filed Vital Signs Vital Sign Reading Time Taken Comments Blood Pressure 125/65 05/24/2008 4:25 PM CDT Pulse 84 05/24/2008 4:25 PM CDT Temperature 36.4 ??C (97.5 ??F) 05/24/2008 4:25 PM CDT C: 36 .4 C Respiratory Rate 16 05/24/2008 4:25 PM CDT Oxygen Saturation 100% 05/24/2008 4:25 PM CDT Inhaled Oxygen Concentration - - Weight - - Height - - Body Mass Index - - documented in this encounter Progress Notes Ramon Cedillo MD - 05/24/2008 12:01 AM CDT Progress Notes signed by Ramon Cedillo MD at 06/01/08 1611 Author: Ramon Cedillo MD Service: (none) Author Type: Physician Filed: 06/22/10 1152 Note Time: 05/24/08 0001 Status: Signed Sales Data Analyst: Ramon Cedillo MD (Physician) NAME: LORA STEWART MR#: [id number] ACCT: [id number] VISIT: [id number] DICTATING CLINICIAN: Ramon Cedillo MD CONFIRM #: [id number] LOC: 520 CLINIC PROGRESS NOTE DATE OF VISIT: 05/24/2008 SUBJECTIVE: 28-year-old male is noting sore throat symptoms the past 2 days, also coughing. Feels like his throat is on fire. Hurts when he coughs. No shortness of breath. He has had loss of sleep secondary to the cough. He is noting headache above the eyebrow area. ADR/ALLERGIES: NO KNOWN DRUG ALLERGIES. MEDICATIONS: None. He does smoke cigarettes. OBJECTIVE: VS: BP: 125/65. T: 97.6. P: 84. R: 16. O2 sat is 100% on room air. Conjunctivae are noninjected, nonicteric. TMs have no erythema or fluid. Nares show moderate erythema and swelling. He does have tenderness and pressure feeling over the sinuses with palpating. There is moderate drainage coming down the back of the throat. Erythema is noted. Lymph nodes are enlarged and tender at the angle of jaw. Rapid strep testing was negative. Lungs are clear to auscultation and percussion. ASSESSMENT: 1. Sinusitis, acute. 2. Pharyngitis. PLAN: Amoxicillin 1 gm b.i.d. for 10 days. Additional sinusitis measures given and reviewed. If not improving over the next week recheck. BOR:[id number] C: 05/25/08 08:36 CONFIRM #: [id number] documented in this encounter Plan of Treatment Not on filedocumented as of this encounter Visit Diagnoses Not on filedocumented in this encounter Care Teams Morning Show Newscast Producer Relationship Specialty Start Date End Date Robin Duncan MD PCP - General 06/03/10 10/17/[address] [place] [address] documented as of this encounter
--- OUTSIDE RECORDS SUMMARY | 2021-12-07 20:35 | XMS_ITS | Encounter Summary ---
:1980 Author Organization [employer] Address [address] [place] [address] Care Team Providers Name Role Phone Robin Duncan MD Primary Care Provider Encounter Details Date Type Department Care Team Description 11/19/2007 Office Visit [facility] Avis Marlow [facility] [place] [address] [place], [place] [address] [place] [address] [phone] (Wo rk) Social History Tobacco Use Types Packs/Day Years Used Date Smoking Tobacco: Never Alcohol Use Standard Drinks/Week Comments Not Asked 0 (1 standard drink = 0.6 oz pure alcoho l) Sex Assigned at Date Recorded Not on file documented as of this encounter Progress Notes Avis Marlow MD - 11/19/2007 12:01 AM CDT Progress Notes signed by Avis Marlow MD at 11/19/07 1023 Author: Avis Marlow MD Service: (none) Author Type: (none) Filed: 06/22/10 0708 Note Time: 11/19/07 0001 Status: Signed Bus Analyst: Avis Marlow MD (Physician) Subjective: This is a 27 year old male who has completed two months of accutane Clinical response: excellent Side effects: Dryness of the lips, treated [...] his blood tests Assessment: 1.Severe- moderate acne-starting third month Plan: 1.Accutane 20 mg p.o. b.i.d., follow up in one month 2. Treatment with Aquaphor for lip dryness discussed 3.Lab work prior to next visit *SH~DNS~Custom1 documented in this encounter Plan of Treatment Not on filedocumented as of this encounter Visit Diagnoses Not on filedocumented in this encounter Care Teams Art Museum Docent Relationship Specialty Start Date End Date Robin Duncan MD PCP - General 06/03/10 10/17/12 [address] [place] [address] documented as of this encounter
--- OUTSIDE RECORDS SUMMARY | 2021-12-07 20:35 | XMS_ITS | Encounter Summary ---
:1980 Author [facility] Address [address] [place] [address] Care Team Providers Name Role Phone Robin Duncan MD Primary Care Provider Encounter Details Date Type Department Care Team Description 11/15/2007 PN Conversion Only GOSHEN CONVERSIO N [address] [place] [address] Social History Tobacco Use Types Packs/Day Years Used Date Smoking Tobacco: Never Alcohol Use Standard Drinks/Week Comments Not Asked 0 (1 standard drink = 0.6 oz pure alcoho l) Sex Assigned at Date Recorded Not on file documented as of this encounter Plan of Treatment Not on filedocumented as of this encounter Visit Diagnoses Not on filedocumented in this encounter Care Teams Pre Billing Clinician Relationship Specialty Start Date End Date Robin Duncan MD PCP - General 06/03/10 10/17/[address] [place] [address] documented as of this encounter
--- OUTSIDE RECORDS SUMMARY | 2021-12-07 20:35 | XMS_ITS | Encounter Summary ---
:1980 Author Organization [facility] Address [address] [place] [address] Care Team Providers Name Role Phone Robin Duncan MD Primary Care Provider Encounter Details Date Type Department Care Team Description 08/16/2008 PN Conversion Only [place] CONVERSIO N [address] [place] [address] Social History Tobacco Use Types Packs/Day Years Used Date Smoking Tobacco: Never Alcohol Use Standard Drinks/Week Comments Not Asked 0 (1 standard drink = 0.6 oz pure alcoho l) Sex Assigned at Date Recorded Not on file documented as of this encounter Plan of Treatment Not on filedocumented as of this encounter Visit Diagnoses Not on filedocumented in this encounter Care Teams Refractory Mixer Relationship Specialty Start Date End Date Robin Duncan MD PCP - General 06/03/10 10/17/[address] [place] [address] documented as of this encounter
--- OUTSIDE RECORDS SUMMARY | 2021-12-07 20:35 | XMS_ITS | Encounter Summary ---
:1980 Author Organization [facility] Address [address] [place] [address] Care Team Providers Name Role Phone Robin Duncan MD Primary Care Provider Encounter Details Date Type Department Care Team Description 11/18/2007 PN Conversion Only LIBERTY CONVERSIO N Kristi Tapia, [address] [place] [address] [place], [place] [address] (Wo rk) Social History Tobacco Use Types [...] Diagnosis Comme nts LIPID PANEL AND Routine 11/18/2007 4:32 PM Result s for this DIRECT LDL(IF CDT procedure are in NEEDED) the results section. AST Routine 11/18/2007 4:32 PM Results f or this CDT procedure are i n the results section. documented in this encounter Results AST (11/18/2007 4:32 PM CDT) [facility] Method Time Signature Aspartate 27 0 - 45 HP CONVERSION Aminotransferase U/L Specimen (Source) Anatomical Collection Method Collection Time Re ceived Time Location / / Volume Laterality 11/18/2007 4:32 PM CDT Kristi Tapia MD LAB_1 Performing Organization Address City/State/ZIP Code Phon e Number HP CONVERSION (ABNORMAL) Lipid Panel and Direct LDL(If Needed) (11/18/2007 4:32 PM CDT) [facility] gist Method Time Signature Length Of Fast 8.0 Hours HP CONVERSION Cholesterol/HDL 4.0 No normal HP CONVERSION Ratio Screen range Cholesterol 164 <200 mg/dL HP CONVERSION HDL Cholesterol 41 >40 mg/dL HP CONVERSION Triglycerides 212 (H) 0 - 149 HP CONVERSION mg/dL LDL Calculated 81 0 - 130 HP CONVERSION mg/dL Comment: Due to abbreviated fast (<10 hours), tri glyceride may be falsely elevated causing factitiously de creased LDL. Specimen (Source) Anatomical Collection Method Collection Time Re ceived Time Location / / Volume Laterality 11/18/2007 4:32 PM CDT Kristi Tapia MD LAB_1 Performing Organization Address City/State/ZIP Code Phon e Number HP CONVERSION documented in this encounter Visit Diagnoses Not on filedocumented in this encounter Care Teams Community Health Nursing Director Relationship Specialty Start Date End Date Robin Dunacn MD PCP - General 06/03/10 10/17/12 [address] [address] [place] [address] documented as of this encounter
--- OUTSIDE RECORDS SUMMARY | 2021-12-07 20:36 | XMS_ITS | Encounter Summary ---
:1980 Author Organization [facility] Address [address] [place] [address] Care Team Providers Name Role Phone Robin Duncan MD Primary Care Provider Encounter Details Date Type Department Care Team Description 09/13/2005 PN Conversion Only WEBB CONVERSION Jimmy Chapin G, [address] [place] [address] [address] [facility] [address] [place], [place] [address] (Wo rk) Social History Tobacco Use Types [...] Date/Time Associated Diagnosis Comme nts GLUCOSE Routine 09/13/2005 11:53 AM Results for this CDT procedure are i n the results section. LIPID PANEL AND Routine 09/13/2005 11:53 AM Resul ts for this DIRECT LDL(IF CDT procedure are in NEEDED) the results section. ALT (SGPT) Routine 09/13/2005 11:53 AM Results for this CDT procedure are i n the results section. documented in this encounter Results ALT (SGPT) (09/13/2005 11:53 AM CDT) [facility] gist Method Time Signature Alanine 35 0 - 65 HP CONVERSION Aminotransferase U/L Specimen (Source) Anatomical Collection Method Collection Time Re ceived Time Location / / Volume Laterality 09/13/2005 11:53 AM CDT Jimmy Chapin MD LAB_1 Performing Organization Address City/State/ZIP Code Phon e Number HP CONVERSION Glucose (09/13/2005 11:53 AM CDT) P athologist Signature Lab Glucose 96 60 - 100 HP CONVERSION mg/dL Specimen (Source) Anatomical Collection Method Collection Time Re ceived Time Location / / Volume Laterality 09/13/2005 11:53 AM CDT Jimmy Chapin MD LAB_1 Performing Organization Address City/State/ZIP Code Phon e Number HP CONVERSION Lipid Panel and Direct LDL(If Needed) (09/13/2005 11:53 AM CDT) Patholo gist Method Time Signature Cholesterol/HDL 3.0 No normal HP CONVERSION Ratio Screen range Cholesterol 139 <200 mg/dL HP CONVERSION HDL Cholesterol 47 40 - 60 HP CONVERSION mg/dL Triglycerides 107 0 - 149 HP CONVERSION mg/dL LDL Calculated 71 0 - 130 HP CONVERSION mg/dL Comment: Specimen (Source) Anatomical Collection Method Collection Time Re ceived Time Location / / Volume Laterality 09/13/2005 11:53 AM CDT Jimmy Chapin MD LAB_1 Performing Organization Address City/State/ZIP Code Phon e Number HP CONVERSION documented in this encounter Visit Diagnoses Not on filedocumented in this encounter Care Teams Dried Yeast Supervisor Relationship Specialty Start Date End Date Robin Duncan MD PCP - General 06/03/10 10/17/12 [address] [address] [place] [address] documented as of this encounter
--- OUTSIDE RECORDS SUMMARY | 2021-12-07 20:36 | XMS_ITS | Encounter Summary ---
:1980 Author Organization [employer] Address [address] [facility] [place] [address] Care Team Providers Name Role Phone Robin Duncan MD Primary Care Provider Encounter Details Date Type Department Care Team Description 06/16/2005 Office Visit [facility] Aida Wang MD [place] [address] [address] [place] [address] [place] [address] [phone] Social History Tobacco Use Types Packs/Day Years Used Date Smoking Tobacco: Never Alcohol Use Standard Drinks/Week Comments Not Asked 0 (1 standard drink = 0.6 oz pure alcoho l) Sex Assigned at Date Recorded Not on file documented as of this encounter Last Filed Vital Signs Vital Sign Reading Time Taken Comments Blood Pressure 108/70 06/16/2005 4:44 PM CDT Pulse 80 06/16/2005 4:44 PM CDT Temperature 36.6 ??C (97.9 ??F) 06/16/2005 4:44 PM CDT C: 36 .6 C Respiratory Rate - - Oxygen Saturation - - Inhaled Oxygen Concentration - - Weight - - Height - - Body Mass Index - - documented in this encounter Progress Notes Nissa Wang MD - 06/16/2005 12:01 AM CDT Progress Notes signed by Nissa Wang MD at 07/09/05 0171 Author: Nissa Silver MD Service: (none) Author Type: Physician Filed: 06/21/10 1128 Note Time: 06/16/052012 Status: Signed Principal Developer: Nissa Silver MD (Physician) NAME: LORA STEWART MR: [id number] ACCT: [id number] VISIT: [id number] DICTATING CLINICIAN: Nissa Silver MD JOB: [id number] CLINIC PROGRESS NOTE DATE OF VISIT: 06/16/2005 SUBJECTIVE: This is a 25-year-old male who comes into clinic today for ongoing neck and upper back pain. 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 Approximately 3 years ago, he did have a back injury in his upper back and neck, as well as low back. He had seen a chiropractor and was actually out of work for approximately 6 months. At that time, he took anti-inflammatories, muscle relaxants, pain killers, and went to extensive physical therapy. He still has problems with his neck and upper back, but his lower back symptoms had resolved. Pain worsens throughout the day and then starts at the base of his neck. He has been doing a lot of research online and is very interested in cortisone injections. He enjoys his job in construction. Particularly as it pays well and wishes to continue this line of work. Tylenol and ibuprofen do not help. Tylenol #3 has been helpful in the past, as has Flexeril as needed. He is seeking a refill of both medications. He has no worrisome neurologic signs. Particularly, no numbness or tingling or loss of weakness in his upper extremities. No other complaints on review of systems. CURRENT MEDICATIONS: None. ADR/ALLERGIES: NONE. OBJECTIVE: VS: BP: 108/70. T: 97.8. P: 80. GENERAL: He appears well. NECK: Good range of motion with tenderness at the C7-C8 with palpation. Strength normal with shoulder shrug and product safety technical assistant strength. 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 PLAN: He has been seen by chiropractics and physical therapy. He is interested in the possibility of any steroid injections. Plan to refer him to outpatient Ortho spine at [facility] for further evaluation and treatment. I did renew Tylenol #3 #50 tablets, and Flexeril #30 tablets, both as needed. Use, benefits, and side effects discussed. Addendum: seen by Caterina: had MRI with minimal cervical disc disease, would not benefit frem cervical steroid injection. [id number] C: 06/17/05 16:27 DOCUMENT: [id number] documented in this encounter Plan of Treatment Not on filedocumented as of this encounter Visit Diagnoses Not on filedocumented in this encounter Care Teams Tax Representative Relationship Specialty Start Date End Date Robin Duncan MD PCP - General 06/03/10 10/17/12 [address] [place] [address] [place] [address] documented as of this encounter
--- OUTSIDE RECORDS SUMMARY | 2021-12-07 20:36 | XMS_ITS | Encounter Summary ---
:1980 Author Organization [facility] Address [address] [facility] [place] [address] Care Team Providers Name Role Phone Robin Duncan MD Primary Care Provider Encounter Details Date Type Department Care Team Description 05/14/2005 Office Visit [facility] Bruno Crespo, [address] [facility] [place] [address] [place] [address] [address] [place], [place] [address] (Wo rk) Social History Tobacco Use Types Packs/Day Years Used Date Smoking Tobacco: Never Alcohol Use Standard Drinks/Week Comments Not Asked 0 (1 standard drink = 0.6 oz pure alcoho l) Sex Assigned at Date Recorded Not on file documented as of this encounter Last Filed Vital Signs Vital Sign Reading Time Taken Comments Blood Pressure 120/80 05/14/2005 9:42 AM VAN CDL DRIVER Pulse 80 05/14/2005 9:42 AM VAN CDL DRIVER Temperature - - Respiratory Rate - - Oxygen Saturation - - Inhaled Oxygen Concentration - - Weight 81.2 kg (179 lb 0.6 oz) 05/14/2005 9:42 AM VAN CDL DRIVER C : 81.2kg Height - - Body Mass Index - - documented in this encounter Progress Notes Bruno Crespo APRN, CNP - 05/14/2005 12:01 AM CST Progress Notes signed by Bruno Crespo APRN, CNP at 06/10/05 0726 Author: JENNIFER Gerard Service: (none) Author Type: Nurse Practitioner Filed: 06/21/10 1049 Note Time: 05/14/052012 Status: Signed Plaster Mechanic: JENNIFER Gerard (Nurse Practitioner) NAME: LORA STEWART MR: [id number] ACCT: [id number] VISIT: [id number] DICTATING CLINICIAN: BRUNO CRESPO, MS,RN,UTILITY BAGGER JOB: [id number] CLINIC PROGRESS NOTE DATE OF VISIT: 05/14/2005 SUBJECTIVE: A 25-year-old male here with upper back pain. 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 The last 2 weeks it has been flaring up. There is no injury. 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 Has been seen in urgent care twice. Given Flexeril and Tylenol no. 3. Flexeril is not really helpful, but Tylenol no. 3 relieves the pain. He tried Excedrin, Advil, Tylenol, ibuprofen, without relief. He went through extensive physical therapy for 6 months at a previous clinic. He thinks it may be have been ??diagnostic?? rehabilitation at [place]. He has also goes to chiropractor 1 to 2 times a month. He recalls having x-rays and MRIs of his neck and back. Initially, had numbness in his left arm, which has improved. No radicular pain. Described as knots and tightness in neck, shoulder, middle of the back. It is a constant pain when he is at work. It gets better when he is at home and on the weekend. Nonsmoker. MEDICATIONS: None. ADR/ALLERGIES: NONE. OBJECTIVE: VS: BP: 120/80. P: 80. Wt: 179 lb. Alert, healthy appearing male in no acute distress. NECK: Supple, without adenopathy. Full range of motion of his neck. No pain over the cervical or thoracic spine. Full range of motion of his shoulder. Describes the pain over the paraspinal muscles bilaterally. Full range of motion of his back in all 4 planes. ASSESSMENT: Cervical and thoracic strain. PLAN: He will get his old records for me to review. Prednisone 40 mg daily times 5 days, take with food. Warned of side effects. Refills Tylenol no. 3, number 35. He declines physical therapy, as it was not helpful in the past. [id number]:[id number] C: 05/15/05 11:37 DOCUMENT: [id number] documented in this encounter Plan of Treatment Not on filedocumented as of this encounter Visit Diagnoses Not on filedocumented in this encounter Care Teams Building Maintenance Worker Relationship Specialty Start Date End Date Robin Duncan MD PCP - General 06/03/10 10/17/12 [address] [address] [place] [id number] documented as of this encounter
--- OUTSIDE RECORDS SUMMARY | 2021-12-07 20:36 | XMS_ITS | Encounter Summary ---
:1980 Author Organization [employer] Address [address] [place] [address] Care Team Providers Name Role Phone Robin Duncan MD Primary Care Provider Encounter Details Date Type Department Care Team Description 04/21/2005 Office Visit [facility] [address] Ruddy Jansen Care MD [address] [place] [address] [place], [place] [phone] Social History Tobacco Use Types Packs/Day Years Used Date Smoking Tobacco: Never Alcohol Use Standard Drinks/Week Comments Not Asked 0 (1 standard drink = 0.6 oz pure alcoho l) Sex Assigned at Date Recorded Not on file documented as of this encounter Last Filed Vital Signs Vital Sign Reading Time Taken Comments Blood Pressure 118/64 04/21/2005 5:21 PM OIL WELL GUN PERFORATOR OPERATOR Pulse 88 04/21/2005 5:21 PM OIL WELL GUN PERFORATOR OPERATOR Temperature 36.9 ??C (98.4 ??F) 04/21/2005 5:21 PM OIL WELL GUN PERFORATOR OPERATOR C: 36 .9 C Respiratory Rate 16 04/21/2005 5:21 PM OIL WELL GUN PERFORATOR OPERATOR Oxygen Saturation - - Inhaled Oxygen Concentration - - Weight - - Height - - Body Mass Index - - documented in this encounter Progress Notes Bia Jansen MD - 04/21/2005 12:01 AM CST Progress Notes signed by Bia Jansen MD at 05/03/05 0856 Author: Bia Jansen MD Service: (none) Author Type: Physician Filed: 06/21/10 1020 Note Time: 04/21/052012 Status: Signed Fashion Consultant Selling: Bia Jansen MD (Physician) NAME: LORA STEWART MR: [id number] ACCT: [id number] VISIT: [id number] DICTATING CLINICIAN: BIA JANSEN MD JOB: [id number] CLINIC PROGRESS NOTE DATE OF VISIT: 04/21/2005 SUBJECTIVE: : 1980. Patient is a 25-year-old male. He had a back and neck injury about 2-3 years ago. Has not been a problem for him very much in the last year, but then had a flare of problems that started last Thursday. He was seen in the urgent care, was given some Flexeril and Tylenol No. 3, which has been helpful over the weekend. He thinks that it was probably set off by some lifting or twisting. 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 Pain has continued to be a bit of a problem for him. It is overall a little bit better than it had been, but he is still finding that he needs some medication, and has run out of the meds that he had been given. OBJECTIVE: VS: BP: 118/64. T: 98.5. P: 88. He has some tenderness across the trapezius muscle, good range of motion of the neck, upper extremity strength, and deep tendon reflexes are normal. In the low back, he has some tenderness over the low lumbar spine over the spinous processes and a little bit into the paraspinal muscles. Deep tendon reflexes are somewhat diminished in the right leg compared to the left. He has good lower extremity strength. Range of motion is excellent and he has normal heel-rise and toe-rise. No paresthesia. ASSESSMENT: 1. Low back pain. 2. Neck pain. PLAN: I refilled his Flexeril and Tylenol No. 3 is given, but he is encouraged to do some followup with primary care. [id number]:[id number] C: 04/22/05 17:54 DOCUMENT: [id number] WELL GUN PERFORATOR OPERATOR documented in this encounter Plan of Treatment Not on filedocumented as of this encounter Visit Diagnoses Not on filedocumented in this encounter Care Teams Blocker And Sewer Relationship Specialty Start Date End Date Robin Duncan MD PCP - General 06/03/10 10/17/12 [address] [address] [place] [id number] documented as of this encounter
--- OUTSIDE RECORDS SUMMARY | 2021-12-07 20:36 | XMS_ITS | Encounter Summary ---
:1980 Author Organization [facility] Address [address] [place] [address] Care Team Providers Name Role Phone Robin Duncan MD Primary Care Provider Encounter Details Date Type Department Care Team Description 03/03/2006 Office Visit [facility] [address] Jose Leach MD Occupational Medicin [facility] [address] [place] [address] Social History Tobacco Use Types Packs/Day Years Used Date Smoking Tobacco: Never Alcohol Use Standard Drinks/Week Comments Not Asked 0 (1 standard drink = 0.6 oz pure alcoho l) Sex Assigned at Date Recorded Not on file documented as of this encounter Progress Notes Jose Leach - 03/03/2006 12:01 AM CST Progress Notes signed by Jose Leach MD at 03/05/06 1530 Author: Jose Leach MD Service: (none) Author Type: Physician Filed: 06/21/10 1633 Note Time: 03/03/06 0001 Status: Signed Sheet Metal Technician: Jose Leach MD (Physician) NAME: LORA STEWART MR#: [id number] ACCT: [id number] VISIT: [id number] DICTATING CLINICIAN: Jose Leach MD JOB: [id number] LOC: 419 CLINIC PROGRESS NOTE DATE OF VISIT: 03/03/2006 SUBJECTIVE: COMPANY NAME: [email or web address]. Patient is here at the request of his employer for a fitness for duty evaluation. 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 Patient has concerns, given that he had a work injury 3-1/2 years ago while at [employer]. Sustained a back injury that was accepted by work comp. Also had neck problem, had lumbar spine and neck MRI that was determined to be nonsurgical. He was treated with physical therapy for 6 months, including active rehab and PDR, was discharged, did get a full release approximately 2-1/2 years ago. Also had chiropractic treatment. At this point, he was fearful of re-injuring himself. 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 Currently he is collecting unemployment; he was laid off, but told that he could be called back for a framing position, where that could aggravate things. Was told by the cheese supervisor he should have a fitness for duty evaluation, if this were the case. OBJECTIVE: Physical exam today shows no significant lumbosacral tenderness to palpation. Good forward bending, extension. Straight-leg raise is negative. Deep tendon reflexes intact, symmetrical. Does have some mild stiffness in his neck, but range of motion is essentially normal with flexion, extension, sideways bending, lateral rotation. Deep tendon reflexes of the upper and lower extremities is intact and symmetrical. Screening pre-placement exam done also. ?. ASSESSMENT: PLAN: At this point, patient was released to work without limitations on 03/03/06. He said that his employers were aware of his previous injuries. At this point, he is at higher risk of back injury, but would not recommend permanent restrictions at this time. Did discuss continuing with his regular exercise program that he was given previously. He will be seen in this department on an as needed basis. Copy of his employer's fitness for duty slip is completed as well. [id number] C: 03/04/06 09:31 DOCUMENT: [id number] RVENTIONAL PHYSICIAN documented in this encounter Plan of Treatment Not on filedocumented as of this encounter Visit Diagnoses Not on filedocumented in this encounter Care Teams Head Of Conservation Relationship Specialty Start Date End Date Robin Duncan MD PCP - General 06/03/10 10/17/12 [address] [place] [address] [place] [address] documented as of this encounter
--- OUTSIDE RECORDS SUMMARY | 2021-12-07 20:36 | XMS_ITS | Encounter Summary ---
:1980 Author [facility] Address [address] [place] [address] Care Team Providers Name Role Phone Robin Duncan MD Primary Care Provider Reason for Visit Reason Comments Other Encounter Details Date Type Department Care Team Description 04/22/2005 Telephone [facility] [address] Ruddy Jansen, Other Care [address] [place] [address] [place], [place] [phone] Social History Tobacco Use Types Packs/Day Years Used Date Smoking Tobacco: Never Alcohol Use Standard Drinks/Week Comments Not Asked 0 (1 standard drink = 0.6 oz pure alcoho l) Sex Assigned at Date Recorded Not on file documented as of this encounter Progress Notes Martha Barney - 04/22/2005 9:58 AM CST Phone Note filed by Martha Barney RN at 06/18/1057 Author: Martha Barney RN Service: (none) Author Type: (none) Filed: 06/18/1057 Note Time: 04/22/0558 Status: Signed Chief Librarian Extension Department: Benedict Peter Augustus Ramirez called Urgent Care HOUSEHOLD MANAGER this morning regarding a miscommunication that he believes happened with the prescriptions that he came to Urgent Care for. He stated that there were two meds that he wanted and only one of them got refilled. If you could please call him at your earliest convenience at [phone] he would much appreciate it. 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 Pt was probably called for the first one and the second was not ready yet. Pt notified of this and will come to pick it up later. C Mai Acknowledged by BRADFORD JANSEN on 2:42pm WASH ASSEMBLER documented in this encounter Plan of Treatment Not on filedocumented as of this encounter Visit Diagnoses Not on filedocumented in this encounter Care Teams Temper Mill Operator Relationship Specialty Start Date End Date Robin Duncan MD PCP - General 06/03/10 10/17/12 [address] [place] [address] [place] [id number] documented as of this encounter
--- OUTSIDE RECORDS SUMMARY | 2021-12-07 20:36 | XMS_ITS | Encounter Summary ---
:1980 Author Organization [employer] Address [address] [facility] [place] [address] Care Team Providers Name Role Phone Robin Duncan MD Primary Care Provider Encounter Details Date Type Department Care Team Description 08/22/2005 Office Visit [facility] Karly Marquez MD [address] [place] [address] [place] [address] [phone] (Wo rk) Social History Tobacco Use Types Packs/Day Years Used Date Smoking Tobacco: Never Alcohol Use Standard Drinks/Week Comments Not Asked 0 (1 standard drink = 0.6 oz pure alcoho l) Sex Assigned at Date Recorded Not on file documented as of this encounter Last Filed Vital Signs Vital Sign Reading Time Taken Comments Blood Pressure 104/58 08/22/2005 4:15 PM CDT Pulse 74 08/22/2005 4:15 PM CDT Temperature - - Respiratory Rate - - Oxygen Saturation - - Inhaled Oxygen Concentration - - Weight 80.7 kg (177 lb 15.6 oz) 08/22/2005 4:15 PM C: 8 0.7kg CDT Height 184.8 cm (6' 0.75) 08/22/2005 4:15 PM C: 184.8c m CDT Body Mass Index 23.64 08/22/2005 4:15 PM CDT documented in this encounter Progress Notes Karly Marquez MD - 08/22/2005 12:01 AM CDT H&P signed by Karly Marquez MD at 09/10/05 0845 Author: Karly Marquez MD Service: (none) Author Type: Physician Filed: 06/21/10 1250 Note Time: 08/22/052012 Status: Signed Middle [employer] French Teacher: Karly Marquez MD (Physician) NAME: LORA STEWART MR: [id number] ACCT: [id number] VISIT: [id number] DICTATING CLINICIAN: KARLY MARQUEZ MD JOB: [id number] CLINIC PHYSICAL DATE OF VISIT: 08/22/2005 SUBJECTIVE: A 25-year-old male here for a complete physical exam. He is generally healthy. He had an episode last week where he had some dizziness when he was looking down to wipe something off his shirt. This gave him vertiginous symptoms lasting 15 to 20 seconds. He is also experiencing recent depression. FAMILY HISTORY: Mother has history of schizophrenia, now doing well at 48. Dad is 46 and healthy. Patient has a fiance. They have been together 2-1/2 years; no kids, no money problems, but generally things have not been going well for them the last several months. He drinks 2 to 3 servings of caffeine a day, 1 to 2 servings of alcohol a day. No tobacco. MEDICATIONS: Updated. ADR/ALLERGIES: UPDATED. PAST MEDICAL HISTORY: No injury, surgeries, nor hospitalizations. REVIEW OF SYSTEMS: Dizziness, recent depressed mood. No headache or special sensory changes. No chest pain or shortness of breath. He does have some occasional back pain for which he takes Tylenol No. 3 and Flexeril. No GI or concerns. Remainder of the complete review of systems is negative. His last tetanus shot was in 2002. 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 OBJECTIVE: VS: BP: 104/58. P: 74. Ht: 72-3/4 in. Wt: 170. Healthy-appearing, 25-year-old male. HEENT: Atraumatic, normocephalic. No sinus tenderness. Pupils are equal, round, and reactive. Extraocular movements intact. Fundi are benign. TMs clear. Nares without discharge. Oropharynx without lesions or erythema. NECK: Supple without adenopathy. LUNGS: Clear to auscultation bilaterally. CV: Regular, rate, and rhythm. ABDOMEN: Soft, nontender. Normoactive bowel sounds. No hepatosplenomegaly. : Normal male. Testes descended bilaterally. No groin adenopathy or hernia. EXTREMITIES: No cyanosis or edema. NEURO: Alert and oriented. Cranial nerves intact. Strength, sensation, and deep tendon reflexes equal bilaterally. SKIN: No remarkable lesions. PHQ-9 scored a total of 14 with 3 in little interest or pleasure, 1 trouble with sleeping too much, 0's for appetite problems or suicidality, and 2's everywhere else. ASSESSMENT: Healthy 25-year-old male. Mild to moderate depression symptoms. Vertiginous episode. PLAN: We described inner ear dysfunction and no other treatment is needed at this time. He is not interested in medication for his depression but took the number of the mental health clinic and will call them for potential therapy. Will check cholesterol fractionation, ALT, and glucose in the future when he is fasting. Follow up p.r.n. M:[id number] C: 08/25/05 13:44 DOCUMENT: [id number] documented in this encounter Plan of Treatment Not on filedocumented as of this encounter Visit Diagnoses Not on filedocumented in this encounter Care Teams Silk Screener Relationship Specialty Start Date End Date Robin Duncan MD PCP - General 06/03/10 10/17/12 [address] [place] [address] [address] documented as of this encounter
--- OUTSIDE RECORDS SUMMARY | 2021-12-07 20:36 | XMS_ITS | Encounter Summary ---
:1980 Author Organization [employer] Address [address] [place] [address] Care Team Providers Name Role Phone Robin Duncan MD Primary Care Provider Encounter Details Date Type Department Care Team Description 12/29/2005 Office Visit [facility] Aida Wang MD [place] [address] [address] [place] [address] [place] [address] [phone] Social History Tobacco Use Types Packs/Day Years Used Date Smoking Tobacco: Never Alcohol Use Standard Drinks/Week Comments Not Asked 0 (1 standard drink = 0.6 oz pure alcoho l) Sex Assigned at Date Recorded Not on file documented as of this encounter Last Filed Vital Signs Vital Sign Reading Time Taken Comments Blood Pressure 100/58 12/29/2005 2:18 PM STEEL CRANE OPERATOR Pulse 72 12/29/2005 2:18 PM STEEL CRANE OPERATOR Temperature - - Respiratory Rate - - Oxygen Saturation - - Inhaled Oxygen Concentration - - Weight 77 kg (169 lb 11.7 oz) 12/29/2005 2:18 PM STEEL CRANE OPERATOR C: 77.0kg Height - - Body Mass Index 22.55 08/22/2005 4:15 PM CDT documented in this encounter Progress Notes Nissa Wang MD - 12/29/2005 12:01 AM CST Progress Notes signed by Nissa Wang MD at 02/02/06 0147 Author: Nissa Silver MD Service: (none) Author Type: Physician Filed: 06/21/10 1516 Note Time: 12/29/052012 Status: Signed Monitoring Tech: Nissa Silver MD (Physician) NAME: LORA STEWART MR#: [id number] ACCT: [id number] VISIT: [id number] DICTATING CLINICIAN: Nissa Silver MD JOB: [id number] LOC: 706 CLINIC PROGRESS NOTE DATE OF VISIT: 12/29/2005 SUBJECTIVE: Chief Complaint: Low back and neck pain. HISTORY OF PRESENT ILLNESS: This is a 25-year-old male who comes into clinic today for followup of the above. He says it is a chronic problem for him since a work injury a while ago, although he has had normal MRIs of that area. He has gone to physical therapy he says which is not helpful. What is helpful is Flexeril and Tylenol No.3 and refills are what brings him to clinic today. He says he has tried some Tylenol and ibuprofen in the past, but is really seeking the Flexeril and Tylenol No.3. 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 This is all going well for him and hopes to find a job in this area in the future. He has also seen psychiatry for ADHD symptoms and was recently placed on Wellbutrin. Also, at that appointment, a urine drug screen was done being positive for marijuana. He says that he has smoked this multiple times a week in the past. REVIEW OF SYSTEMS: No complaints. CURRENT MEDICATIONS: Wellbutrin. OBJECTIVE: VS: BP: 100/58. P: 72. Wt: 170. GENERAL: Appears well. NECK: Good range of motion. BACK: Easily arises from a chair. Gait is normal. Good range of motion. ASSESSMENT: A 25-year-old male who comes into clinic today for followup of neck and back pain, actually seeking Flexeril and Tylenol No.3 which we discussed, I will not provide given his positive marijuana screen. I discussed optimizing his ibuprofen 800 mg 3 times a day as well as physical therapy. He does not wish any physical therapy at this time and will try the ibuprofen. Declined a flu shot today. Followup as needed and for preventive health care needs. PLAN: See assessment. RIZVI:[id number] C: 12/30/05 13:24 DOCUMENT: [id number] L CRANE OPERATOR documented in this encounter Plan of Treatment Not on filedocumented as of this encounter Visit Diagnoses Not on filedocumented in this encounter Care Teams Director Of Orthopedics Relationship Specialty Start Date End Date Robin Duncan MD PCP - General 06/03/10 10/17/12 [address] [place] [address] [id number] documented as of this encounter
--- OUTSIDE RECORDS SUMMARY | 2021-12-07 20:36 | XMS_ITS | Encounter Summary ---
:1980 Author Organization [employer] Address [address] [place] [address] Care Team Providers Name Role Phone Robin Duncan MD Primary Care Provider Encounter Details Date Type Department Care Team Description 11/17/2005 PN Conversion Only [place] CONVERSION Nissa Wang, [address] [facility] [place] [address] [address] (Wo rk) Social History Tobacco [...] Date/Time Associated Comments Diagnosis HIV ANTIBODY Routine 11/17/2005 5:20 PM Results f or this CDT procedure are i n the results section. SEXUALLY TRANSMITTED Routine 11/17/2005 5:20 PM R esults for this DISEASE PROBE CDT procedure are in the results section. documented in this encounter Results Sexually Transmitted Disease Probe (11/17/2005 5:20 PM CDT) [facility] Method Time Signature Sexually SEE TEXT HP CONVERSION Transmitted Disease Probe Comment: Patient: LORA STEWART R Sexually Trans Disease Probe @ ?Collected: ??[id number] ??1720 Source: Urine ? Processed: ??[id number] ??1720 ? PLB Final Report ------ ?[id number] ??1333 No Chlamydia trachomatis detected by amp lified DNA assay No Neisseria gonorrhoeae detected by amp lified DNA assay The Probetec Amplified DNA assay is marjan red by the FDA for non-medicolegal diagnostic testing in the adult population. It has not been cleared for use in the pediatric population. @ = Sexually Trans Disease Probe Perform ed at ??[address] [place] [address] Specimen (Source) Anatomical Collection Method Collection Time Re ceived Time Location / / Volume Laterality 11/17/2005 5:20 PM CDT Nissa Wang MD LAB_1 Performing Organization Address City/[facility] Phon e Number HP CONVERSION HIV Antibody (11/17/2005 5:20 PM CDT) P athologist Signature HIV 1/HIV 2 Non Reac Non Reac HP CONVERSION Specimen (Source) Anatomical Collection Method Collection Time Re ceived Time Location / / Volume Laterality 11/17/2005 5:20 PM CDT Nissa Wang MD LAB_1 Performing Organization Address [facility] Code Phon e Number HP CONVERSION documented in this encounter Visit Diagnoses Not on filedocumented in this encounter Care Teams Forensic Sergeant Relationship Specialty Start Date End Date Robin Duncan MD PCP - General 06/03/10 10/17/12 [address] [place] [address] documented as of this encounter
--- OUTSIDE RECORDS SUMMARY | 2021-12-07 20:36 | XMS_ITS | Encounter Summary ---
:1980 Author Organization [facility] Address [address] [facility] [place] [address] Care Team Providers Name Role Phone Robin Duncan MD Primary Care Provider Encounter Details Date Type Department Care Team Description 08/12/2006 Procedure Visit [facility] [address] Parisa Bills MD [place], [place] [address] [place] [address] Social History Tobacco Use Types Packs/Day Years Used Date Smoking Tobacco: Never Alcohol Use Standard Drinks/Week Comments Not Asked 0 (1 standard drink = 0.6 oz pure alcoho l) Sex Assigned at Date Recorded Not on file documented as of this encounter Plan of Treatment Not on filedocumented as of this encounter Visit Diagnoses Not on filedocumented in this encounter Care Teams Education Coordinator Relationship Specialty Start Date End Date Robin Duncan MD PCP - General 06/03/10 10/17/12 [address] [place] [address] documented as of this encounter
--- OUTSIDE RECORDS SUMMARY | 2021-12-07 20:36 | XMS_ITS | Encounter Summary ---
:1980 Author Organization [facility] Address [address] [facility] [place] [address] Care Team Providers Name Role Phone Robin Duncan MD Primary Care Provider Encounter Details Date Type Department Care Team Description 11/18/2005 PN Conversion Only [place] [facility] ON Darrian Strauss MD [address] [facility] [address] [place] [address] [address] [place] [address] (Wo rk) Social History Tobacco Use Types Packs/Day Years Used Date Smoking Tobacco: Never Alcohol Use Standard Drinks/Week Comments Not Asked 0 (1 standard drink = 0.6 oz pure alcoho l) Sex Assigned at Date Recorded Not on file documented as of this encounter Plan of Treatment Not on filedocumented as of this encounter Procedures Procedure Name Priority Date/Time Associated Diagnosis Comme [facility] DRUG ABUSE Routine 11/18/2005 2:01 PM Results f or this SCREEN,URINE,W/ CDT procedure ar e in CONF the results section. documented in this encounter Results (ABNORMAL) Drug Abuse Screen,Urine,W/ Conf (11/18/2005 2:01 PM CDT) [facility] Method Time Signature Marijuana POSITIVE (A) No normal HP CONVERSION range Comment: Confirmed POSITIVE by GC/MS for 9-carbox y-THC (marijuana or Marinol use). 9-yevrpjn-BJH = 101 ng/mL. Cocaine NEG No normal range HP CONVERSION Opiates NEG No normal range HP CONVERSION Phencyclidine NEG No normal range HP CONVERS ION Amphetamine NEG No normal range HP CONVERSIO N Barbituates NEG No normal range HP CONVERSIO N Benzodiazepine Ur Qual NEG No normal range H P CONVERSION Alcohol NEG No normal range HP CONVERSION Drugs Of Abuse Screen Comment SEE NOTE No normal range HP CONVERSION Comment: Interpretive data: TEST INFORMATION: Drug Screen and Conf 7 A-Urine 1. Cutoff Concentrations, ng/mL: ??Initi al Test ?Confirmation ?? Marijuana ................... ?? 20 ? 4 ?? Cocaine ..................... ??150 ?50 ?? Opiates ..................... ??300 ? 5 ?? Phencyclidine ............... ?? 25 ?10 ?? Amphetamines ................ ??300 ? 200 ?? Barbiturates ................ ??200 ?50 ?? Benzodiazepines ............. ??200 ?20 ?? Alcohol ..................... ?? 40 mg/dL ?40 mg/dL 2. Not appropriate for employment drug t esting. Specimen (Source) Anatomical Collection Method Collection Time Re ceived Time Location / / Volume Laterality 11/18/2005 2:01 PM CDT Darrian Strauss MD LAB_1 Performing Organization Address City/State/ZIP Code Phon e Number HP CONVERSION documented in this encounter Visit Diagnoses Not on filedocumented in this encounter Care Teams Custodial Engineer Relationship Specialty Start Date End Date Robin Duncan MD PCP - General 06/03/10 10/17/[address] [place] [address] documented as of this encounter
--- OUTSIDE RECORDS SUMMARY | 2021-12-07 20:36 | XMS_ITS | Encounter Summary ---
:1980 Author Organization [facility] Address [address] [place] [address] Care Team Providers Name Role Phone Robin Duncan MD Primary Care Provider Encounter Details Date Type Department Care Team Description 03/04/2007 Office Visit [facility] [address] Latonya Rhoades MD Care [address] [place] [address] [place], [place] [address] [phone] Social History Tobacco Use Types Packs/Day Years Used Date Smoking Tobacco: Never Alcohol Use Standard Drinks/Week Comments Not Asked 0 (1 standard drink = 0.6 oz pure alcoho l) Sex Assigned at Date Recorded Not on file documented as of this encounter Last Filed Vital Signs Vital Sign Reading Time Taken Comments Blood Pressure 87/62 03/04/2007 12:52 PM STRUCTURAL ENGINEERING TECHNICIAN Pulse 62 03/04/2007 12:52 PM STRUCTURAL ENGINEERING TECHNICIAN Temperature 36.3 ??C (97.3 ??F) 03/04/2007 12:52 PM STRUCTURAL ENGINEERING TECHNICIAN C: 3 6.3 C Respiratory Rate 12 03/04/2007 12:52 PM STRUCTURAL ENGINEERING TECHNICIAN Oxygen Saturation - - Inhaled Oxygen Concentration - - Weight - - Height - - Body Mass Index - - documented in this encounter Progress Notes Latonya Rhoades MD - 03/04/2007 12:01 AM CST Progress Notes signed by Latonya Rhoades MD at 04/05/07 0885 Author: Latonya Rhoades MD Service: (none) Author Type: Physician Filed: 06/22/10 0000 Note Time: 03/04/07 0001 Status: Signed Floor Cleaner: Latonya Rhoades MD (Physician) NAME: LORA STEWART MR#: [id number] ACCT: [id number] VISIT: [id number] DICTATING CLINICIAN: Latonya Rhoades MD JOB: [id number] LOC: 420 CLINIC PROGRESS NOTE DATE OF VISIT: 03/04/2007 SUBJECTIVE: The patient comes in today stating that 4 days ago he sustained an inversion injury to his left ankle. No other injuries occurred. He has had ongoing discomfort. Reports some chronic instability to his ankle. Says he had an episode over the summer where he had sudden onset of pain of unclear etiology, was transient, but he is not sure what caused that. He has no numbness, tingling or weakness in his foot. PAST MEDICAL HISTORY: Per Patient Health Profile. MEDICATIONS: Per Patient Health Profile. ADR/ALLERGIES: PER PATIENT HEALTH PROFILE. OBJECTIVE: VS: BP: 87/62. T: 97.3. P: 62. R: 12. GENERAL: In no apparent distress. Left ankle with minimal swelling over the lateral surface. No bony tenderness is appreciated. He has good ligamentous instability. Neurovascular exam is intact. He can move his foot against resistance in all directions without difficulty. X-RAY: X-ray of the area is unremarkable to my interpretation. ASSESSMENT: Sprain to the ankle. PLAN: Treat symptomatically. Follow up is p.r.n. MERLYN:[id number] C: 03/04/07 21:03 DOCUMENT: [id number] CTURAL ENGINEERING TECHNICIAN documented in this encounter Plan of Treatment Not on filedocumented as of this encounter Procedures Procedure Name Priority Date/Time Associated Diagnosis Comme nts XR ANKLE LT 3 VIEWS Routine 03/04/2007 1:18 PM Re sults for this STRUCTURAL ENGINEERING TECHNICIAN procedure are i n the results section. documented in this encounter Results XR Ankle Lt 3 Views (03/04/2007 1:18 PM STRUCTURAL ENGINEERING TECHNICIAN) Anatomical Region Laterality Modality Lower Extremity, Ankle, Foot & Ankle Oth er Specimen (Source) Anatomical Location Collection Method / Collectio n Time Received Time / Laterality Volume Narrative 03/04/2007 1:18 PM STRUCTURAL ENGINEERING TECHNICIAN Findings: BN1 No radiographic evidence of bone or join t abnormality. Dictating KAYLEEN YUAN RADIOLOGIST Procedure Note Kayleen Abraham - 05/07/2016 Findings: BN1 No radiographic evidence of bone or join t abnormality. Dictating KAYLEEN YUAN RADIOLOGIST Latonya Rhoades MD RAD GD documented in this encounter Visit Diagnoses Not on filedocumented in this encounter Care Teams Cocoa Bean Cleaner Relationship Specialty Start Date End Date Robin Duncan MD PCP - General 06/03/10 10/17/12 [address] [place] [address] documented as of this encounter
--- OUTSIDE RECORDS SUMMARY | 2021-12-07 20:36 | XMS_ITS | Encounter Summary ---
:1980 Author Organization [employer] Address [address] [place] [address] Care Team Providers Name Role Phone Robin Duncan MD Primary Care Provider Encounter Details Date Type Department Care Team Description 11/17/2005 Office Visit [facility] Aida Wang MD [place] [address] [address] [place] [address] [place] [address] [phone] Social History Tobacco Use Types Packs/Day Years Used Date Smoking Tobacco: Never Alcohol Use Standard Drinks/Week Comments Not Asked 0 (1 standard drink = 0.6 oz pure alcoho l) Sex Assigned at Date Recorded Not on file documented as of this encounter Last Filed Vital Signs Vital Sign Reading Time Taken Comments Blood Pressure 112/60 11/17/2005 4:51 PM CDT Pulse 68 11/17/2005 4:51 PM CDT Temperature - - Respiratory Rate - - Oxygen Saturation - - Inhaled Oxygen Concentration - - Weight 78.5 kg (172 lb 15.9 oz) 11/17/2005 4:51 PM CDT C: 78.5kg Height - - Body Mass Index 22.98 08/22/2005 4:15 PM CDT documented in this encounter Progress Notes Nissa Wang MD - 11/17/2005 12:01 AM CDT Progress Notes signed by Nissa Wang MD at 11/20/05 0849 Author: Nissa Silver MD Service: (none) Author Type: Physician Filed: 06/21/10 1425 Note Time: 11/17/05 0001 Status: Signed Petrologist: Nissa Silver MD (Physician) NAME: LORA STEWART MR: [id number] ACCT: [id number] VISIT: [id number] DICTATING CLINICIAN: Nissa Silver MD JOB: [id number] LOC: 706 CLINIC PROGRESS NOTE DATE OF VISIT: 11/17/2005 SUBJECTIVE: Chief Complaint: STD check. This is a 25-year-old male who comes into clinic today for the above. He does not have any symptoms, no discharge, pain, or lesions. However, he has had multiple recent sexual partners and he suspects this former girlfriend may have as well. He wishes to have sexually transmitted disease screening. No other complaints on a review of systems today. CURRENT MEDICATIONS: Include occasional Tylenol with codeine for neck pain. OBJECTIVE: VS: BP: 112/60. P: 68. Wt: 130. ASSESSMENT: This is a 25-year-old male who comes into clinic today for a STD check. PLAN: We will check gonorrhea, chlamydia and HIV today and contact him with the above results. RIZVI:[id number] C: 11/18/05 15:46 DOCUMENT: [id number] documented in this encounter Plan of Treatment Not on filedocumented as of this encounter Visit Diagnoses Not on filedocumented in this encounter Care Teams Newscast Producer Relationship Specialty Start Date End Date Robin Duncan MD PCP - General 06/03/10 10/17/12 [address] [place] [address] [place] [id number] documented as of this encounter
--- OUTSIDE RECORDS SUMMARY | 2021-12-07 20:36 | XMS_ITS | Encounter Summary ---
:1980 Author Organization [facility] Address [address] [place] [address] Care Team Providers Name Role Phone Robin Duncan MD Primary Care Provider Encounter Details Date Type Department Care Team Description 02/27/2006 PN Conversion Only GAMBLING FLOOR SUPERVISOR [address] [place] [address] Social History Tobacco Use Types Packs/Day Years Used Date Smoking Tobacco: Never Alcohol Use Standard Drinks/Week Comments Not Asked 0 (1 standard drink = 0.6 oz pure alcoho l) Sex Assigned at Date Recorded Not on file documented as of this encounter Plan of Treatment Not on filedocumented as of this encounter Visit Diagnoses Not on filedocumented in this encounter Care Teams Drill Instructor Relationship Specialty Start Date End Date Robin Duncan MD PCP - General 06/03/10 10/17/12 [address] [place] [address] documented as of this encounter
--- OUTSIDE RECORDS SUMMARY | 2021-12-07 20:36 | XMS_ITS | Encounter Summary ---
:1980 Author Organization [employer] Address [address] [place] [address] Care Team Providers Name Role Phone Robin Duncan MD Primary Care Provider Reason for Visit Reason Comments Other Encounter Details Date Type Department Care Team Description 06/19/2005 Telephone [facility] Tabby Yates MD [place] [id number] [place] [address] [place], [place] [phone] (Wo rk) Social History Tobacco Use Types Packs/Day Years Used Date Smoking Tobacco: Never Alcohol Use Standard Drinks/Week Comments Not Asked 0 (1 standard drink = 0.6 oz pure alcoho l) Sex Assigned at Date Recorded Not on file documented as of this encounter Progress Notes Tree York RN - 06/19/2005 1:20 PM CDT Phone Note filed by Tree York RN at 06/18/10 8749 Author: Tree York RN Service: (none) Author Type: Registered Nurse Filed: 06/18/108 Note Time: 06/19/05 1320 Status: Signed Electrical Development Engineer: Tree York RN (Registered Nurse) Pt seen by Dr. Silver on 06/16. An appt at the [facility] [place] was supposed to have been made for him. He hasn't heard anything about this appt. Please schedule the [facility] appt for 2 weeks from now or further out and call pt to let him know when the appt is. [phone]. OK to leave a detailed message. Created on 19Jun2005 1:20pm by TREE YORK On 19Jun2005 1:57pm TABBY MARQUEZ wrote: forwarded to nursing. SNS. Acknowledged by TABBY MARQUEZ on 1:57pm INE CELL TUBER documented in this encounter Plan of Treatment Not on filedocumented as of this encounter Visit Diagnoses Not on filedocumented in this encounter Care Teams Typing Bookkeeper Relationship Specialty Start Date End Date Robin Duncan MD PCP - General 06/03/10 10/17/12 [address] [place] [address] [place] [address] documented as of this encounter
--- OUTSIDE RECORDS SUMMARY | 2021-12-07 20:36 | XMS_ITS | Encounter Summary ---
:1980 Author Organization [facility] Address [address] [place] [address] Care Team Providers Name Role Phone Robin Duncan MD Primary Care Provider Encounter Details Date Type Department Care Team Description 07/04/2005 PN Conversion Only [facility] Kennedy Zuñiga MD [address] [facility] [address] [place] [address] [place] [phone] [address] Social History Tobacco Use Types Packs/Day Years Used Date Smoking Tobacco: Never Alcohol Use Standard Drinks/Week Comments Not Asked 0 (1 standard drink = 0.6 oz pure alcoho l) Sex Assigned at Date Recorded Not on file documented as of this encounter Plan of Treatment Not on filedocumented as of this encounter Visit Diagnoses Not on filedocumented in this encounter Care Teams Fx Artist Relationship Specialty Start Date End Date Robin Duncan MD PCP - General 06/03/10 10/17/12 [address] [place] [address] documented as of this encounter
--- OUTSIDE RECORDS SUMMARY | 2021-12-07 20:36 | XMS_ITS | Encounter Summary ---
:1980 Author Organization [facility] Address [address] [place] [address] Care Team Providers Name Role Phone Robin Duncan MD Primary Care Provider Encounter Details Date Type Department Care Team Description 12/26/2005 Prefitter Doors Only CONVERSION CONVERSION Darrian Strauss MD [address] [place] [address] [place] [address] (Wo rk) Social History Tobacco Use Types Packs/Day Years Used Date Smoking Tobacco: Never Alcohol Use Standard Drinks/Week Comments Not Asked 0 (1 standard drink = 0.6 oz pure alcoho l) Sex Assigned at Date Recorded Not on file documented as of this encounter Progress Notes Darrian Strauss MD - 12/26/2005 12:01 AM CDT Progress Notes signed by Darrian Strauss MD at 12/26/05 1042 Author: Darrian Strauss MD Service: (none) Author Type: Physician Filed: 06/21/10 1513 Note Time: 12/26/05 0001 Status: Signed Capsule Inspector: Darrian Strauss MD (Physician) patient failed medication management appointment. 1st letter sent. no charge. documented in this encounter Plan of Treatment Not on filedocumented as of this encounter Visit Diagnoses Not on filedocumented in this encounter Care Teams Vice President Of Human Resources Relationship Specialty Start Date End Date Robin Duncan MD PCP - General 06/03/10 10/17/[address] [place] [address] documented as of this encounter
--- OUTSIDE RECORDS SUMMARY | 2021-12-07 20:36 | XMS_ITS | Encounter Summary ---
:1980 Author Organization [facility] Address [address] [facility] [place] [address] Care Team Providers Name Role Phone Robin Duncan MD Primary Care Provider Reason for Visit Reason Comments Other Encounter Details Date Type Department Care Team Description 10/01/2005 Telephone [facility], Message Other [address] [place] [address] Social History Tobacco Use Types Packs/Day Years Used Date Smoking Tobacco: Never Alcohol Use Standard Drinks/Week Comments Not Asked 0 (1 standard drink = 0.6 oz pure alcoho l) Sex Assigned at Date Recorded Not on file documented as of this encounter Progress Mandi Bonilla RN - 10/01/2005 1:57 PM CDT Phone Note filed by Mandi Guillory RN at 06/18/1059 Author: Mandi Guillory RN Service: (none) Author Type: (none) Filed: 06/18/10 0659 Note Time: 10/01/05 1357 Status: Signed Septic Tank Installer: Imr Conversion Prescription Refill Please provide enough refills to last until patient's next visit. Comment:- Pharmacy Seq #:- [facility] [phone] Pharmacy Name:- Pharmacy Street or City:- Clinician Name:-Nadeem last CLINIC PHYSICAL DATE OF VISIT: 08/22/2005 Drug Name/Strength:- cyclobenzaprine 10 mg tab (Flexeril) one by mouth tid as needed for muscle spasm qty 60 last fill 07/15/05 Created on 01Oct2005 1:57pm by MANDI GUILLORY On 01Oct2005 1:58pm MANDI GUILLORY wrote: and acetaminophen/cod #3 tab (tylenol w/codeine #3) qty 60 last fill 07/15/05 take 1-2 every 4 hours prn pain Acknowledged by BRUNO CRESPO on 4:50pm On 02Oct2005 1:27pm TABBY MARQUEZ wrote: ok, occas use, refilled. SNS. Please notify pt. SNS Acknowledged by TABBY MARQUEZ on 1:27pm On 02Oct2005 4:09pm ТАТЬЯНА MCCORMICK wrote: Message left for pt. that meds re rx to pharmacy. Acknowledged by ТАТЬЯНА MCCORMICK on 4:09pm MS PROCESSOR documented in this encounter Plan of Treatment Not on filedocumented as of this encounter Visit Diagnoses Not on filedocumented in this encounter Care Teams Machine Whitener Relationship Specialty Start Date End Date Robin Duncan MD PCP - General 06/03/10 10/17/12 [address] [place] [address] [address] documented as of this encounter
--- OUTSIDE RECORDS SUMMARY | 2021-12-07 20:36 | XMS_ITS | Encounter Summary ---
:[address] [facility] Address [address] [place] [address] Care Team Providers Name Role Phone Robin Duncan MD Primary Care Provider Encounter Details Date Type Department Care Team Description 04/16/2005 PN Conversion Only HOME DELIVERY DRIVER [address] [place] [address] Social History Tobacco Use Types Packs/Day Years Used Date Smoking Tobacco: Never Alcohol Use Standard Drinks/Week Comments Not Asked 0 (1 standard drink = 0.6 oz pure alcoho l) Sex Assigned at Date Recorded Not on file documented as of this encounter Plan of Treatment Not on filedocumented as of this encounter Visit Diagnoses Not on filedocumented in this encounter Care Teams Trigonometry Tutor Relationship Specialty Start Date End Date Robin Duncan MD PCP - General 06/03/10 10/17/12 [address] [place] [address] documented as of this encounter
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
--- OUTSIDE RECORDS SUMMARY | 2021-12-07 20:36 | XMS_ITS | Encounter Summary ---
:1980 Author Organization [facility] Address [address] [place] [address] Care Team Providers Name Role Phone Robin Duncan MD Primary Care Provider Reason for Visit Reason Comments Other Encounter Details Date Type Department Care Team Description 12/16/2005 Telephone [facility] [employer] [place], Message Other [address] [place], [place] [address] Social History Tobacco Use Types Packs/Day Years Used Date Smoking Tobacco: Never Alcohol Use Standard Drinks/Week Comments Not Asked 0 (1 standard drink = 0.6 oz pure alcoho l) Sex Assigned at Date Recorded Not on file documented as of this encounter [facility], Message - 12/16/2005 4:12 PM CDT Phone Note filed by Bella Pictures at 06/18/10 8767 Author: Bella Pictures Service: (none) Author Type: (none) Filed: 06/18/1069 Note Time: 12/16/05 1612 Status: Signed Salt Plant Operator: Bella Pictures Prescription Refill Please provide enough refills to last until patient's next visit. Comment:- Pharmacy Seq #:- Pharmacy Name:-[facility] Pharmacy Pharmacy Street or City:-[facility] Clinician Name:-Dr Zamora last DATE OF VISIT: 11/17/2005 med listed. Drug Name/Strength:-Tylenol with Codeine #3 tablet Sig: Dose/Route/Freq:-One - two tablets Q4HR PRN Quantity & Last Fill:-Qty 60 last filled 10/02/05 Created on 16Dec2005 4:12pm by PIEDAD MEJIA On 16Dec2005 4:57pm MOSHE BENITEZ wrote: Call the patient . I am not able to refill the tylenol with codeine.Let him know that I will forward to Dr Silver on her return on to review. Please forward this to Dr Silver once patient has been called. Thanks MM Acknowledged by MOSHE BENITEZ on 4:57pm On 16Dec2005 5:31pm IWONA DUFF wrote: pt called,will forward to Dr.Norris Silver for . Acknowledged by IWONA DUFF on 5:31pm On 18Dec2005 9:17am TABBY MARQUEZ wrote: needs to make follow-up appt, ? needs further studies, exam as to why needs ongoing T#3. SNS Acknowledged by TABBY MARQUEZ on 9:18am On 18Dec2005 11:38am ТАТЬЯНА MCCORMICK wrote: voice message left for this pt. to notify Acknowledged by ТАТЬЯНА MCCORMICK on 11:38am TEGIC PARTNERSHIP REPRESENTATIVE documented in this encounter Plan of Treatment Not on filedocumented as of this encounter Visit Diagnoses Not on filedocumented in this encounter Care Teams Area Captain Relationship Specialty Start Date End Date Robin Duncan MD PCP - General 06/03/10 10/17/12 [address] [place] [address] documented as of this encounter
--- OUTSIDE RECORDS SUMMARY | 2021-12-07 20:36 | XMS_ITS | Encounter Summary ---
:1980 Author Organization [facility] Address [address] [place] [address] Care Team Providers Name Role Phone Robin Duncan MD Primary Care Provider Encounter Details Date Type Department Care Team Description 03/04/2007 PN Conversion Only CHAR FILTER TANK TENDER HEAD [address] [address] Social History Tobacco Use Types Packs/Day Years Used Date Smoking Tobacco: Never Alcohol Use Standard Drinks/Week Comments Not Asked 0 (1 standard drink = 0.6 oz pure alcoho l) Sex Assigned at Date Recorded Not on file documented as of this encounter Plan of Treatment Not on filedocumented as of this encounter Visit Diagnoses Not on filedocumented in this encounter Care Teams Riprap Man Relationship Specialty Start Date End Date Robin Duncan MD PCP - General 06/03/10 10/17/12 [address] [place] [address] documented as of this encounter
--- OUTSIDE RECORDS SUMMARY | 2021-12-07 20:36 | XMS_ITS | Encounter Summary ---
:1980 Author Organization [facility] Address [address] [place] [address] Care Team Providers Name Role Phone Robin Duncan MD Primary Care Provider Reason for Visit Reason Comments Other Encounter Details Date Type Department Care Team Description 12/18/2005 Telephone [facility] Cardenas, Ambika Raines, Other [address] [facility] [place] [address] Social History Tobacco Use Types Packs/Day Years Used Date Smoking Tobacco: Never Alcohol Use Standard Drinks/Week Comments Not Asked 0 (1 standard drink = 0.6 oz pure alcoho l) Sex Assigned at Date Recorded Not on file documented as of this encounter Progress Notes Alma Colin LPN - 12/18/2005 1:27 PM CDT Phone Note filed by Alma Colin LPN at 06/18/1046 Author: Alma Colin LPN Service: (none) Author Type: (none) Filed: 06/18/10 0952 Note Time: 12/18/05 1327 Status: Signed Unindentured Apprentice: Imr Conversion Prescription Refill Please provide enough refills to last until patient's next visit. Comment:-LAST VISIT Pharmacy Seq #:- Pharmacy Name:-[facility] Pharmacy Street or City:-[place] Clinician Name:KAVON Drug Name/Strength:-ACETAMINOPHEN/COD#3 Sig: Dose/Route/Freq:-TAKE 1-2 TABS BY MOUTH EVERY 4 HR NEEDED FOR PAIN Quantity & Last Fill:-60, LAST FILL [id number] Created on 18Dec2005 1:27pm by ALMA COLIN On 18Dec2005 3:47pm KARLY MARQUEZ wrote: #60 printed at pharmacy. Please call. Acknowledged by KARLY MARQUEZ on 3:47pm Acknowledged by AMBIKA MCCORMACK on 4:13pm ISION MECHANICAL INSTRUMENT MAKER documented in this encounter Plan of Treatment Not on filedocumented as of this encounter Visit Diagnoses Not on filedocumented in this encounter Care Teams Java Support Engineer Relationship Specialty Start Date End Date Robin Duncan MD PCP - General 06/03/10 10/17/12 [address] [place] [address] documented as of this encounter
--- OUTSIDE RECORDS SUMMARY | 2021-12-07 20:36 | XMS_ITS | Encounter Summary ---
:1980 Author Organization [facility] Address [address] [place] [address] Care Team Providers Name Role Phone Robin Duncan MD Primary Care Provider Encounter Details Date Type Department Care Team Description 08/12/2006 PN Conversion Only BOX PRESS OPERATOR [address] [place] [address] Social History Tobacco Use Types Packs/Day Years Used Date Smoking Tobacco: Never Alcohol Use Standard Drinks/Week Comments Not Asked 0 (1 standard drink = 0.6 oz pure alcoho l) Sex Assigned at Date Recorded Not on file documented as of this encounter Plan of Treatment Not on filedocumented as of this encounter Visit Diagnoses Not on filedocumented in this encounter Care Teams Mechanical Engineering Director Relationship Specialty Start Date End Date Robin Duncan MD PCP - General 06/03/10 10/17/12 [address] [place] [address] documented as of this encounter
--- OUTSIDE RECORDS SUMMARY | 2021-12-07 20:37 | XMS_ITS | Encounter Summary ---
:1980 Author Organization [facility] Address [address] [place] [address] Care Team Providers Name Role Phone Unassigned, Provider Primary Care Provider Unavailable Encounter Details Date Type Department Care Team Description 08/31/2003 Therapy External to Devon Enciso MD [facility] [address] [place] [address] (Wo rk) Social History Tobacco Use Types Packs/Day Years Used Date Smoking Tobacco: Never Alcohol Use Standard Drinks/Week Comments Not Asked 0 (1 standard drink = 0.6 oz pure alcoho l) Sex Assigned at Date Recorded Not on file documented as of this encounter Progress Notes Darius Enciso - 08/31/2003 12:00 AM CDT documented in this encounter Plan of Treatment Not on filedocumented as of this encounter Visit Diagnoses Not on filedocumented in this encounter Care Teams School Nurse Relationship Specialty Start Date End Date Unassigned, Provider PCP - General 09/16/04 06/02/[address] [place] [address] documented as of this encounter
--- OUTSIDE RECORDS SUMMARY | 2021-12-07 20:37 | XMS_ITS | Encounter Summary ---
:1980 Author Organization [employer] [facility] Address [address] [place] [address] Care Team Providers Name Role Phone Darius Enciso MD Primary Care Provider Encounter Details Date Type Department Care Team Description 06/13/2003 Telephone [facility] Hanh Castrejon [address] [place], [place] [address] Social History Tobacco Use Types Packs/Day Years Used Date Smoking Tobacco: Never Alcohol Use Standard Drinks/Week Comments Not Asked 0 (1 standard drink = 0.6 oz pure alcoho l) Sex Assigned at Date Recorded Not on file documented as of this encounter Progress Notes Hanh Castrejon - 06/13/2003 12:00 AM CDT documented in this encounter Plan of Treatment Not on filedocumented as of this encounter Visit Diagnoses Not on filedocumented in this encounter Care Teams Service Unit Operator Relationship Specialty Start Date End Date Darius Enciso MD PCP - General 06/07/03 11/12/03 [facility] [address] [place], [place] [address] documented as of this encounter
--- OUTSIDE RECORDS SUMMARY | 2021-12-07 20:37 | XMS_ITS | Encounter Summary ---
:1980 Author Organization [employer] Address [address] [place] [address] Care Team Providers Name Role Phone Jose Hood MD Primary Care Provider [phone] Encounter Details Date Type Department Care Team Description 11/14/2003 Office Visit [facility] LOW BACK PAIN (CHRONIC)>6 WEEKS; Alireza Aparicio MD LOW BACK PAIN(ACUTE)<6 WEEKS; [address] [place], [place] [address] [facility] [address] [place], [place] [address] Social History Tobacco Use Types Packs/Day Years Used Date Smoking Tobacco: Never Alcohol Use Standard Drinks/Week Comments Not Asked 0 (1 standard drink = 0.6 oz pure alcoho l) Sex Assigned at Date Recorded Not on file documented as of this encounter Last Filed Vital Signs Vital Sign Reading Time Taken Comments Blood Pressure 98/56 11/14/2003 10:20 AM CDT Pulse 76 11/14/2003 10:20 AM CDT Temperature - - Respiratory Rate 16 11/14/2003 10:20 AM CDT Oxygen Saturation - - Inhaled Oxygen Concentration - - Weight 75.3 kg (166 lb) 11/14/2003 10:20 AM CDT Height - - Body Mass Index - - documented in this encounter Progress Notes 11/14/2003 10:20 AM CDT Augustus Ramirez is here today for f/u W/C back pain DOI: 06/01/03. Are you having other pain today, that you want to discuss with the provider? -NO Do you need refills on any of your medications today? -NO Preventive Services up to date? -YES Immunizations up to date? -YES Do you ever feel physically threatened or emotionally afraid? -NOT ASKED Tobacco Status reviewed? (see History Social-Substance) -YES attendant lodging facilities offered? -NOT APPLICABLE. Aspirin taken daily? -NO BP was taken on the RIGHT arm. BP cuff size used? -Adult Regular Health Education given? -NO. Contact phone number [phone] (home) , alternate phone number- BP 98/56 Pulse 76 Resp 16 Wt 166 lbs (75.3kg) Current outpatient prescriptions: CYCLOBENZAPRINE HCL (FLEXERIL) 10MG ORAL TABS,Take 1-2 tablets by mouth three (3) times a day,Disp:30,Rfl: 0 SULINDAC (CLINORIL) 200MG ORAL TABS,1 TABLET TWICE DAILY as needed,Disp: 60,Rfl: 99 Review of patient's allergies indicates no known allergies. Sophie Jean Baptiste LPN 11/14/2003 11:00 AM Jose Hood - 11/14/2003 12:00 AM CDTSUBJECTIVE: Patient here for follow-up of work comp injury. He was seen yesterday for increasing back pain. He continues to have tightness in his back over the past 2 weeks, while he has been working full duty. No radiation of pain into his legs. Also has had some pain in his neck. Is considering quitting his job and finding different employment as he continues to have back pain with this current job. OBJECTIVE: Alert, in no acute distress. Examination of the neck reveals mild tenderness over the left paraspinous muscles and left trapezius muscle. No spinous tenderness. Examination of the back reveals good range of motion. Mild tenderness to palpation over the buttock muscles and lower lumbar paraspinous muscles. ASSESSMENT: Acute and chronic neck and low back pain. PLAN: Extensive discussion with the patient with regards to his current symptoms. He will be given a referral to [facility] for treatment of his neck and back pain. Continue with ibuprofen prn. Follow-up as needed. ADDENDUM: Twenty minutes spent with the patient, over 10 of which involved counseling and coordination of care. P cc: documented in this encounter Plan of Treatment Not on filedocumented as of this encounter Visit Diagnoses Diagnosis Other unspecified back disorder Lumbago Cervicalgia documented in this encounter Care Teams Electrical Power Station Technician Relationship Specialty Start Date End Date Jose Hood MD PCP - General 11/13/03 09/15/[address] [place] [address] [place] [address] documented as of this encounter
--- OUTSIDE RECORDS SUMMARY | 2021-12-07 20:37 | XMS_ITS | Encounter Summary ---
:1980 Author Organization [facility] Address [address] [place] [address] Care Team Providers Name Role Phone Robin Duncan MD Primary Care Provider Encounter Details Date Type Department Care Team Description 06/21/2004 Office Visit [facility] Nato Pizarro MD [facility] [address] [place] [address] [place] [address] [phone] (Wo rk) Social History Tobacco Use Types Packs/Day Years Used Date Smoking Tobacco: Never Alcohol Use Standard Drinks/Week Comments Not Asked 0 (1 standard drink = 0.6 oz pure alcoho l) Sex Assigned at Date Recorded Not on file documented as of this encounter Progress Notes Nato Pizarro MD - 06/21/2004 12:01 AM CDT Progress Notes signed by Nato Pizarro MD at 06/27/04 0920 Author: Nato Pizarro MD Service: (none) Author Type: Physician Filed: 09/25/10 1351 Note Time: 06/21/042015 Status: Addendum School Manager: Nato Pizarro MD (Physician) Related Notes: Original Note by Imr Conversion filed at 09/25/10 9120 NAME: LORA STEWART MR: [id number] ACCT: [id number] VISIT: [id number] DICTATING CLINICIAN: NATO PIZARRO MD JOB: [id number] CLINIC PROGRESS NOTE DATE OF VISIT: 06/21/2004 SUBJECTIVE: Patient comes in today wondering about cough, nasal congestion, and ear pain with sore throat for the last three weeks. Been using xkuu-wgo-vuhrsrz cold medicines without much relief. He has never had this before. He has had some mild runny nose with spring allergies in the past, but nothing this severe. Patient is without health insurance. Wants to know if there is anything else that should be done. 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 OBJECTIVE: VS: BP: 106/60. T: 97. Wt: 175 lb. He is a white male in no obvious distress. LUNGS: Clear. Pharynx exam shows no erythema, no lymphadenopathy, no thyromegaly. Bilateral TMs are normal. HEART: Regular rate and rhythm. No murmur, no gallop. PMI is in normal position. ASSESSMENT: URI. PLAN: It has been three weeks. Treat with amoxicillin for the next 10 days. He will continue with an antihistamine in case this is allergy symptoms. If neither of these seem to control his symptoms, arrange for a CT scan of his sinuses and possibly allergy referral. He is agreeable to this plan. FINAL IMPRESSION: Sinus congestion. JRR:[id number] C: 06/21/04 14:24 DOCUMENT: [id number] ETIC DOCTOR documented in this encounter Plan of Treatment Not on filedocumented as of this encounter Visit Diagnoses Not on filedocumented in this encounter Care Teams Brick Tester Relationship Specialty Start Date End Date Robin Duncan MD PCP - General 06/03/10 10/17/12 [address] [place] [address] [place] [address] documented as of this encounter
--- OUTSIDE RECORDS SUMMARY | 2021-12-07 20:37 | XMS_ITS | Encounter Summary ---
:1980 Author Organization [facility] Address [address] [place] [address] Care Team Providers Name Role Phone Unassigned, Provider Primary Care Provider Unavailable Encounter Details Date Type Department Care Team Description 03/16/2003 Office Visit [facility] Darius Enciso, [facility] [address] [place], [place] [address] [facility] [phone] [place] [address] (Wo rk) Social History Tobacco Use Types Packs/Day Years Used Date Smoking Tobacco: Never Assessed Sex Assigned at Date Recorded Not on file documented as of this encounter Last Filed Vital Signs Vital Sign Reading Time Taken Comments Blood Pressure 112/60 03/16/2003 4:[address]/MEDICAL INTERPRETER Pulse 80 03/16/2003 4:[address]/MEDICAL INTERPRETER Temperature 36.4 ??C (97.6 ??F) 03/16/2003 4:[address]/MEDICAL INTERPRETER Respiratory Rate 20 03/16/2003 4:[address]/MEDICAL INTERPRETER Oxygen Saturation - - Inhaled Oxygen Concentration - - Weight 67.9 kg (149 lb 12.8 oz) 03/16/2003 4:[address]/MEDICAL INTERPRETER Height - - Body Mass Index - - documented in this encounter Progress Notes 03/16/2003 4:[address]/MEDICAL INTERPRETER Augustus Ramirez is here today for midback pain x 1 month. Are you having other pain today, that you want to discuss with the provider? -NO Do you need refills on any of your medications today? -NO Preventive Services up to date? -ADVISED TO FOLLOW UP WITH PRIMARY CARE PROVIDER Immunizations up to date? -YES Do you ever feel physically threatened or emotionally afraid? -NOT ASKED Tobacco Status reviewed? (see History Social-Substance) -YES stack attendant offered? -NOT APPLICABLE. Aspirin taken daily? -NO BP was taken on the RIGHT arm. BP cuff size used? -Adult Large Health Education given? -NO. Contact phone number [phone] (home) , alternate phone number. 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 No clear incident associated with the onset. He does a lot of carrying and lifting of forms at work. He started off with mild pain around the left, around T8 to 11. Increases with walking, standing and lifting. At first he was quite good in the morning and the pain recurred in the middle of the day, now it is coming earlier in the day. Excedrin used to help but doesn't much anymore. Heat also used to help. Wondering if chiropractic treatment would help. O: Healthy young adult male in no acute distress. Vital signs are unremarkable. Exam of the back shows that it is straight. There is good motion. No significant tenderness. Some pain is reproduced on the left with rightward bending. IMPRESSION: Back strain. PLAN: To use ibuprofen and cold and follow up depending on his response to treatment. Referred for chiropractic. P cc: IFIED COURT/MEDICAL INTERPRETER documented in this encounter Plan of Treatment Not on filedocumented as of this encounter Visit Diagnoses Diagnosis Backache, unspecified documented in this encounter Care Teams Cio Relationship Specialty Start Date End Date Unassigned, Provider PCP - General 04/05/02 06/06/[address] [place] [address] documented as of this encounter
--- OUTSIDE RECORDS SUMMARY | 2021-12-07 20:37 | XMS_ITS | Encounter Summary ---
:1980 Author Organization [facility] Address [address] [place] [address] Care Team Providers Name Role Phone Jose Hood MD Primary Care Provider [phone] Encounter Details Date Type Department Care Team Description 02/14/2004 Therapy External to Jose Hood MD [address] [place] [address] (Wo rk) Social History Tobacco Use Types Packs/Day Years Used Date Smoking Tobacco: Never Alcohol Use Standard Drinks/Week Comments Not Asked 0 (1 standard drink = 0.6 oz pure alcoho l) Sex Assigned at Date Recorded Not on file documented as of this encounter Progress Notes Jose Hood - 02/14/2004 12:00 AM CERAMICS INSTRUCTOR MICS INSTRUCTOR documented in this encounter Plan of Treatment Not on filedocumented as of this encounter Visit Diagnoses Not on filedocumented in this encounter Care Teams Manager Programming Relationship Specialty Start Date End Date Jose Hood MD PCP - General 11/13/03 09/15/[address] [place] [id number] documented as of this encounter
--- OUTSIDE RECORDS SUMMARY | 2021-12-07 20:37 | XMS_ITS | Encounter Summary ---
:1980 Author Organization [facility] Address [address] [place] [address] Care Team Providers Name Role Phone Jose Hood MD Primary Care Provider [phone] Encounter Details Date Type Department Care Team Description 02/12/2004 Correspondence None Unknown, Physici [facility] [address] [place], [place] [id number] (Wo rk) Social History Tobacco Use Types Packs/Day Years Used Date Smoking Tobacco: Never Alcohol Use Standard Drinks/Week Comments Not Asked 0 (1 standard drink = 0.6 oz pure alcoho l) Sex Assigned at Date Recorded Not on file documented as of this encounter Progress Notes Unknown, Physician - 02/12/2004 12:00 AM MUSEUM DIRECTOR documented in this encounter Plan of Treatment Not on filedocumented as of this encounter Visit Diagnoses Not on filedocumented in this encounter Care Teams Rn L And D Relationship Specialty Start Date End Date Jose Hood MD PCP - General 11/13/03 09/15/04 [facility] [place] [address] documented as of this encounter
--- OUTSIDE RECORDS SUMMARY | 2021-12-07 20:37 | XMS_ITS | Encounter Summary ---
:1980 Author Organization [facility] Address [address] [place] [address] Care Team Providers Name Role Phone Unassigned, Provider Primary Care Provider Unavailable Encounter Details Date Type Department Care Team Description 03/16/2003 Correspondence None Unknown, [facility]ici [facility] [address] [place] [address] (Wo rk) Social History Tobacco Use Types Packs/Day Years Used Date Smoking Tobacco: Never Assessed Sex Assigned at Date Recorded Not on file documented as of this encounter Progress Notes Unknown, Physician - 03/16/2003 12:00 AM ACCOUNTING MANAGER ASSISTANT CONTROLLER documented in this encounter Plan of Treatment Not on filedocumented as of this encounter Visit Diagnoses Not on filedocumented in this encounter Care Teams Table Lever Operator Relationship Specialty Start Date End Date Unassigned, Provider PCP - General 04/05/02 [address] [place] [address] documented as of this encounter
--- OUTSIDE RECORDS SUMMARY | 2021-12-07 20:37 | XMS_ITS | Encounter Summary ---
:1980 Author Organization [facility] Address [address] [facility] [place] [address] Care Team Providers Name Role Phone Robin Duncan MD Primary Care Provider Encounter Details Date Type Department Care Team Description 06/23/2004 PN Conversion Only RELIGION CONVERSION Social History Tobacco Use Types Packs/Day Years Used Date Smoking Tobacco: Never Alcohol Use Standard Drinks/Week Comments Not Asked 0 (1 standard drink = 0.6 oz pure alcoho l) Sex Assigned at Date Recorded Not on file documented as of this encounter Plan of Treatment Not on filedocumented as of this encounter Visit Diagnoses Not on filedocumented in this encounter Care Teams Waiter/Waitress Club Relationship Specialty Start Date End Date Robin Duncan MD PCP - General 06/03/10 10/17/12 [address] [place] [address] documented as of this encounter
--- OUTSIDE RECORDS SUMMARY | 2021-12-07 20:37 | XMS_ITS | Encounter Summary ---
:1980 Author Organization [facility] Address [address] [place] [address] Care Team Providers Name Role Phone Jose Hood MD Primary Care Provider [phone] Encounter Details Date Type Department Care Team Description 06/23/2004 Emergency [facility] Sonia Zavaleta MD [address] [place] [address] [address] [facility] [place] [address] [facility]. Sonia Zavaleta MD [address] [place] [address] [address] [facility] [place] [address] [place] [address] Social History Tobacco Use Types Packs/Day Years Used Date Smoking Tobacco: Never Alcohol Use Standard Drinks/Week Comments Not Asked 0 (1 standard drink = 0.6 oz pure alcoho l) Sex Assigned at Date Recorded Not on file documented as of this encounter Medications at Time of Discharge Medication Sig Dispensed Refills Start Date End Date CELEXA 20MG ORAL TABS Take 1 tablet by mouth 30 0 once a day documented as of this encounter Progress Notes Sonia Zavaleta - 06/23/2004 12:01 AM CDT NAME: LORA STEWART MR: [id number] ACCT: VISIT: [id number] DICTATING CLINICIAN: SONIA LEIJA MD JOB: [id number] CLINIC PROGRESS NOTE DATE OF VISIT: 06/23/2004 SUBJECTIVE: : 1980. Chief Complaint: Laceration. HISTORY OF PRESENT ILLNESS: The patient is a 24-year-old healthy male who presents 2 hours post lip laceration. 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 Patient did not lose consciousness. He had mild nausea and headache from the taste of blood. No vomiting. Has not taken pain meds. No other injuries. He asks if his lip requires suturing. He states it looks less open than it did 2 hours ago. PAST MEDICAL HISTORY: Recent sinus infection. MEDICATIONS: Finishing an amoxicillin course. ADR/ALLERGIES: NO KNOWN DRUG ALLERGIES. SOCIAL HISTORY: Nonsmoker. REVIEW OF SYSTEMS: Healthy male with no recent illnesses other than sinus infection mentioned above. Tetanus was in 2002. OBJECTIVE: VS: BP: 111/54. T: 97.6 degrees Fahrenheit. P: Heart rate is 65. R: 16. O2 Sat: 97% on room air. GENERAL: The patient is a 24-year-old male who is in no acute distress. Affect is within normal limits. HEENT: Pupils equal, round, react to light. No conjunctivitis or scleral icterus. No erythema, edema or exudate of the posterior pharynx. Patient has a laceration through his right lower lip, caused by his teeth. Wound entrance and exit points 3 mm. The edges are well approximated. No foreign body. Area is nontender to palpation. Mild edema without significant erythema or ecchymosis. Dentition intact. HEART: S1, S2. Regular rate and rhythm without murmurs, rubs or gallops. LUNGS: Clear to auscultation bilaterally in the anterior and posterior stewart. NEUROLOGIC: Gait within normal limits. Cranial nerves II-XII grossly intact. ASSESSMENT: Lip laceration. PLAN: 1. Edges looked well approximated so did not suture laceration today. 2. Suggested ice and rest. 3. Tylenol p.r.n. pain. 4. Follow up p.r.n. HCV:[id number] C: 06/24/04 15:24 DOCUMENT: [id number] documented in this encounter Plan of Treatment Not on filedocumented as of this encounter Visit Diagnoses Not on filedocumented in this encounter Care Teams Flight Dispatcher Relationship Specialty Start Date End Date Jose Hood MD PCP - General 11/13/03 09/15/[address] [facility] [address] documented as of this encounter
--- OUTSIDE RECORDS SUMMARY | 2021-12-07 20:37 | XMS_ITS | Encounter Summary ---
:1980 Author Organization [facility] Address [address] [place] [address] Care Team Providers Name Role Phone Jose Hood MD Primary Care Provider [phone] Encounter Details Date Type Department Care Team Description 11/13/2003 Correspondence None Unknown, Physici an [facility]LEASE [address] [place], [place] [id number] (Wo rk) Social History Tobacco Use Types Packs/Day Years Used Date Smoking Tobacco: Never Alcohol Use Standard Drinks/Week Comments Not Asked 0 (1 standard drink = 0.6 oz pure alcoho l) Sex Assigned at Date Recorded Not on file documented as of this encounter Progress Notes Unknown, Physician - 11/13/2003 12:00 AM CDT documented in this encounter Plan of Treatment Not on filedocumented as of this encounter Visit Diagnoses Not on filedocumented in this encounter Care Teams Director Of Revenue Relationship Specialty Start Date End Date Jose Hood MD PCP - General 11/13/03 09/15/04 [facility] [place] [address] documented as of this encounter
--- OUTSIDE RECORDS SUMMARY | 2021-12-07 20:37 | XMS_ITS | Encounter Summary ---
:1980 Author Organization [facility] Address [address] [place] [address] Care Team Providers Name Role Phone Jose Hood MD Primary Care Provider [phone] Encounter Details Date Type Department Care Team Description 06/18/2004 Therapy External to Devon Enciso MD [facility] [id number] [place] [id number] (Wo rk) Social History Tobacco Use Types Packs/Day Years Used Date Smoking Tobacco: Never Alcohol Use Standard Drinks/Week Comments Not Asked 0 (1 standard drink = 0.6 oz pure alcoho l) Sex Assigned at Date Recorded Not on file documented as of this encounter Progress Notes Darius Enciso - 06/18/2004 12:00 AM CDT documented in this encounter Plan of Treatment Not on filedocumented as of this encounter Visit Diagnoses Not on filedocumented in this encounter Care Teams Lower School Spanish Teacher Relationship Specialty Start Date End Date Jose Hood MD PCP - General 11/13/03 09/15/04 [facility] [place], [place] [address] documented as of this encounter
--- OUTSIDE RECORDS SUMMARY | 2021-12-07 20:37 | XMS_ITS | Encounter Summary ---
:1980 Author Organization [employer] Address [address] [facility] [place] [address] Care Team Providers Name Role Phone Darius Enciso MD Primary Care Provider Encounter Details Date Type Department Care Team Description 10/23/2003 Office Visit [facility] Belem Trejo MD [facility] Practice [address] [facility] [address] [address] [place] [address] [place], [place] [phone] (Work) [phone] Social History Tobacco Use Types Packs/Day Years Used Date Smoking Tobacco: Never Alcohol Use Standard Drinks/Week Comments Not Asked 0 (1 standard drink = 0.6 oz pure alcoho l) Sex Assigned at Date Recorded Not on file documented as of this encounter Last Filed Vital Signs Vital Sign Reading Time Taken Comments Blood Pressure 102/70 10/23/2003 11:20 AM CDT Pulse 72 10/23/2003 11:20 AM CDT Temperature - - Respiratory Rate 20 10/23/2003 11:20 AM CDT Oxygen Saturation - - Inhaled Oxygen Concentration - - Weight 77.4 kg (170 lb 9.6 oz) 10/23/2003 11:20 AM CDT Height - - Body Mass Index - - documented in this encounter Progress Notes 10/23/2003 11:20 AM CDT Augustus Ramirez is here today for S.T.D. Testing. BP 102/70 Pulse 72 Resp 20 Wt 170 lbs 10 oz (77.4kg) Current outpatient prescriptions: SULINDAC (CLINORIL) 200MG ORAL TABS,1 TABLET TWICE DAILY as needed,Disp: 60,Rfl: 99 . Are you having other pain today, that you want to discuss with the provider? -NO Do you need refills on any of your medications today? -NO Preventive Services up to date? -YES Immunizations up to date? -YES Do you ever feel physically threatened or emotionally afraid? -NO Tobacco Status reviewed? (see History Social-Substance) -YES operations plant attendant offered? -NOT APPLICABLE. Aspirin taken daily? -NO BP was taken on the RIGHT arm. BP cuff size used? -Adult Large Health Education given? -NO. Contact phone number [phone] (home) , alternate phone number- Sara SchultzCHARITY harmon 10/23/2003 11:29 AM Belem Trejo - 10/23/2003 12:00 AM CDTCC: STD testing. S: 23-year-old here today just for some STD screening tests. He is in a new relationship. They have been together for about 6 months. They have been sexually active. She is on Depo-Provera. They are not frequently using condoms. He has had multiple partners in the past, perhaps a total of 18, and has not always been yarsanism about using condoms. He states he was checked for STDs but it was quite a long time ago. He denies any symptoms of any STDs. O: Temp 97.4. Pulse 72. Blood pressure 102/70. General: Alert in no apparent distress. A: STD check. P: Will go ahead and check for gonorrhea and chlamydia, HIV, syphilis and hepatitis B and see whether he has been vaccinated for hepatitis B, as he is not sure. Will get back to him regarding those results as we get them. Again went over with him the importance of condom use. P cc: documented in this encounter Plan of Treatment Not on filedocumented as of this encounter Visit Diagnoses Diagnosis Screening examination for venereal disea se documented in this encounter Care Teams Middle Stitcher Relationship Specialty Start Date End Date Darius Enciso MD PCP - General 06/07/03 11/12/03 [place] [address] documented as of this encounter
--- OUTSIDE RECORDS SUMMARY | 2021-12-07 20:37 | XMS_ITS | Encounter Summary ---
:1980 Author Organization [facility] Address [address] [place] [address] Care Team Providers Name Role Phone Jose Hood MD Primary Care Provider [phone] Encounter Details Date Type Department Care Team Description 03/27/2004 Therapy [place] [address] [place] [address] [address] [facility] [facility] [address] (Wo rk) Social History Tobacco Use Types Packs/Day Years Used Date Smoking Tobacco: Never Alcohol Use Standard Drinks/Week Comments Not Asked 0 (1 standard drink = 0.6 oz pure alcoho l) Sex Assigned at Date Recorded Not on file documented as of this encounter Progress Notes Jose Hood - 03/27/2004 12:00 AM HOME HEALTH AIDE HEALTH AIDE Jose Hood - 03/27/2004 12:00 AM HOME HEALTH AIDE HEALTH AIDE Jose Hood - 03/27/2004 12:00 AM HOME HEALTH AIDE HEALTH AIDE documented in this encounter Plan of Treatment Not on filedocumented as of this encounter Visit Diagnoses Not on filedocumented in this encounter Care Teams Bus Matron Relationship Specialty Start Date End Date Jose Hood MD PCP - General 11/13/03 09/15/[address] [place] [address] [address] [place] [address] documented as of this encounter
--- OUTSIDE RECORDS SUMMARY | 2021-12-07 20:37 | XMS_ITS | Encounter Summary ---
:1980 Author Organization [facility] Address [address] [place] [address] Care Team Providers Name Role Phone Darius Enciso MD Primary Care Provider Encounter Details Date Type Department Care Team Description 08/29/2003 Correspondence External to Unknown, Physici an [employer] [address] [facility] [place] [address] (Wo rk) Social History Tobacco Use Types Packs/Day Years Used Date Smoking Tobacco: Never Alcohol Use Standard Drinks/Week Comments Not Asked 0 (1 standard drink = 0.6 oz pure alcoho l) Sex Assigned at Date Recorded Not on file documented as of this encounter Progress Notes Unknown, Physician - 08/29/2003 12:00 AM CDT documented in this encounter Plan of Treatment Not on filedocumented as of this encounter Visit Diagnoses Not on filedocumented in this encounter Care Teams Biofuels Product Development Manager Relationship Specialty Start Date End Date Draius Enciso MD PCP - General 06/07/03 11/12/03 [facility] [address] [place] [address] documented as of this encounter
--- OUTSIDE RECORDS SUMMARY | 2021-12-07 20:37 | XMS_ITS | Encounter Summary ---
:1980 Author Organization [employer] Address [address] [place] [address] Care Team Providers Name Role Phone Jose Hood MD Primary Care Provider [phone] Encounter Details Date Type Department Care Team Description 11/13/2003 Office Visit [facility] Jaimee Joel L OW BACK PAIN Practice MD (CHRONIC)>[address] [address] [facility] [address] [place] [address] [phone] Social History Tobacco Use Types Packs/Day Years Used Date Smoking Tobacco: Never Alcohol Use Standard Drinks/Week Comments Not Asked 0 (1 standard drink = 0.6 oz pure alcoho l) Sex Assigned at Date Recorded Not on file documented as of this encounter Last Filed Vital Signs Vital Sign Reading Time Taken Comments Blood Pressure 110/58 11/13/2003 1:10 PM CDT Pulse 78 11/13/2003 1:10 PM CDT Temperature - - Respiratory Rate 10 11/13/2003 1:10 PM CDT Oxygen Saturation - - Inhaled Oxygen Concentration - - Weight 74.4 kg (164 lb) 11/13/2003 1:10 PM CDT Height - - Body Mass Index - - documented in this encounter Progress Notes 11/13/2003 1:10 PM CDT Augustus Ramirez is here today for back pain. Work comp. 06/03. Are you having other pain today, that you want to discuss with the provider? -YES Do you need refills on any of your medications today? -YES Preventive Services up to date? -YES Immunizations up to date? -YES Do you ever feel physically threatened or emotionally afraid? -NOT ASKED Tobacco Status reviewed? (see History Social-Substance) -YES recreation facility attendant offered? -NOT APPLICABLE. Aspirin taken daily? -NO BP was taken on the RIGHT arm. BP cuff size used? -Adult Large Health Education given? -NO. Contact phone number [phone] (home) , alternate phone number- Marychuy RocaCHARITY 11/13/2003 1:11 PM Current outpatient prescriptions: SULINDAC (CLINORIL) 200MG ORAL TABS,1 TABLET TWICE DAILY as needed,Disp: 60,Rfl: 99 Jaimee Joel Yanna - 11/13/2003 12:00 AM CDTS: Patient is a 23-year-old male who presents to clinic for follow-up of a work comp injury. Patient apparently injured his back in May of this year. States he has been having chronic problems with it since that time. Over the last two weeks he states his pain has been increasing and he actually has an appointment scheduled with his normal doctor tomorrow but he states that the pain is now so intense that he is not able to do his normal activities and he has been sleep deprived for several days because he is not able to sleep due to the pain. Patient describes the pain as both being in the neck and lower back. He has not noticed any weakness or tingling of the lower upper extremities. 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 The patient has found that Flexeril was helpful in the past. He is currently taking Sulindac and doesn't feel that is helpful in any sort of way. He has also tried Motrin, Naprosyn and Excedrin none of which he had found helpful. Patient would like a medication just to help him get by until tomorrow when he is able to see his normal doctor because of the intensity of the pain. He actually called in sick today and told them that he wouldn't be in because of the intensity of the pain as well. O: Vital signs as noted above. In general the patient is a pleasant 23-year-old male in no apparent distress. Examination of the back reveals no tenderness over the spine. He has some mild to moderate muscle spasm present on each side in the lower thoracic and upper lumbar back. He has negative straight leg raise today. A: Chronic intermittent low back pain. P: 1. Encouraged patient to continue taking Sulindac. 2. Patient was re-prescribed the Flexeril 10 mg tablets 1-2 tablets every eight hours as needed for discomfort. 3. Patient was cautioned regarding the possible sedation from the Flexeril and advised not to drive or operate machinery or do anything endangering himself or others while taking it. 4. Could consider referral to more back intensive therapy such as [facility]. 5. Patient also requests are referral to a specialist informing that we would leave this option up to his primary provider and he thinks that's a reasonable plan. P cc: documented in this encounter Plan of Treatment Not on filedocumented as of this encounter Visit Diagnoses Diagnosis Other unspecified back disorder documented in this encounter Care Teams Lacemaker Relationship Specialty Start Date End Date Sana, Jose Aparicio MD PCP - General 11/13/03 09/15/04 [facility] [place] [address] documented as of this encounter
--- OUTSIDE RECORDS SUMMARY | 2021-12-07 20:37 | XMS_ITS | Encounter Summary ---
:1980 Author Organization [facility] Address [address] [place] [address] Care Team Providers Name Role Phone Jose Hood MD Primary Care Provider [phone] Reason for Visit Reason Comments FOLLOW-UP,WORK COMP back pain 06/01/03 Encounter Details Date Type Department Care Team Description 02/12/2004 Office Visit [facility] Jose Hood BACKACHE NOS (Primary Dx); Practice MD Markus DEPRESSIVE DISORDER NOS [address] [address] [place] [address] Social History Tobacco Use Types Packs/Day Years Used Date Smoking Tobacco: Never Alcohol Use Standard Drinks/Week Comments Not Asked 0 (1 standard drink = 0.6 oz pure alcoho l) Sex Assigned at Date Recorded Not on file documented as of this encounter Last Filed Vital Signs Vital Sign Reading Time Taken Comments Blood Pressure 138/62 02/12/2004 4:39 PM LEAD PROJECT MANAGER Pulse 76 02/12/2004 4:39 PM LEAD PROJECT MANAGER Temperature - - Respiratory Rate 16 02/12/2004 4:39 PM LEAD PROJECT MANAGER Oxygen Saturation - - Inhaled Oxygen Concentration - - Weight 75.9 kg (167 lb 6.4 oz) 02/12/2004 4:39 PM LEAD PROJECT MANAGER Height - - Body Mass Index - - documented in this encounter Progress Notes 02/12/2004 4:20 PM LEAD PROJECT MANAGER This encounter has been dictated. MD Sana Wilde Robert Anthony - 02/12/2004 12:00 AM CSTS. Patient here for follow-up of work comp back injury. Please see previous note from 11/14/03 for details. Continues to go to [facility]. States he has had increase in strength in his back. However, he still has a fair amount of pain especially when he leans forward and does any activity for more than just a few minutes. Pain is localized in the low back. 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 He also states he has been having some problems with depression. He states he is upset almost all the time. His father and his girlfriend have noticed this. He has had decreased appetite. Has been sleeping fairly well. He is not suicidal. Has not had problems with depression in the past. O. Alert. No acute distress. Appropriately groomed and dressed. Good eye contact. Examination of the back reveals mild tenderness to palpation over the left SI joint area. Excellent range of motion of the back with forward flexion. Limited back extension. Good lateral bending. A. Acute and chronic low back pain. Depression secondary to #1. P. Findings discussed at length with the patient. He wishes to continue with [facility] as he feels he is continuing to gain improvement on their program. He was instructed to ask for muscle relaxants as he has had a fair amount of muscle stiffness. He is informed that this is a temporary treatment and not a long-term treatment. He is given a refill of his prescription of Flexeril. Also, discussed etiology and treatment of depression at length. Celexa 20 mg qd. Discussed potential benefits and risks including recent press reports about suicide in teenage patients starting Prozac. He will call back to the clinic next week for update on his condition or sooner if needed. Twenty-five minutes spent with the patient, over 15 of which involved counseling and coordination of care. P cc: PROJECT MANAGER documented in this encounter Plan of Treatment Not on filedocumented as of this encounter Visit Diagnoses Diagnosis Backache, unspecified - Primary Depressive disorder, not elsewhere class ified documented in this encounter Care Teams Cigarette Making Machine Operator Relationship Specialty Start Date End Date Jose Hood MD PCP - General 11/13/03 09/15/[address] [place] [address] Dr [address] [place] [address] documented as of this encounter
--- OUTSIDE RECORDS SUMMARY | 2021-12-07 20:37 | XMS_ITS | Encounter Summary ---
:1980 Author Organization [employer] Address [address] [place] [address] Care Team Providers Name Role Phone Darius Enciso MD Primary Care Provider Encounter Details Date Type Department Care Team Description 09/11/2003 Office Visit [facility] Darius Enciso LOW BACK PAIN(ACUTE)<6 Practice MD Mary [address] [address] [place] [address] [facility] [address] [place], [place] [phone] [address] Social History Tobacco Use Types Packs/Day Years Used Date Smoking Tobacco: Never Alcohol Use Standard Drinks/Week Comments Not Asked 0 (1 standard drink = 0.6 oz pure alcoho l) Sex Assigned at Date Recorded Not on file documented as of this encounter Last Filed Vital Signs Vital Sign Reading Time Taken Comments Blood Pressure 122/64 09/11/2003 8:00 AM CDT Pulse 80 09/11/2003 8:00 AM CDT Temperature - - Respiratory Rate 12 09/11/2003 8:00 AM CDT Oxygen Saturation - - Inhaled Oxygen Concentration - - Weight 75.3 kg (166 lb) 09/11/2003 8:00 AM CDT Height - - Body Mass Index - - documented in this encounter Progress Notes 09/11/2003 8:00 AM CDT Augustus Ramirez is here today for f/u work comp. injury to low back. Are you having other pain today, that you want to discuss with the provider? -YES. Neck pain also. Do you need refills on any of your medications today? -NO Preventive Services up to date? -YES Immunizations up to date? -YES Do you ever feel physically threatened or emotionally afraid? -NOT ASKED Tobacco Status reviewed? (see History Social-Substance) -YES ladies' locker room attendant offered? -NOT APPLICABLE. Aspirin taken daily? -NO BP was taken on the RIGHT arm. BP cuff size used? -Adult Regular Health Education given? -NO. 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 Onset 08/30/03 after 3 11-hour days at work. No acute injury. His back had been good up to that point and he was off medications. He has been on a 10 pound restriction for the last 2 weeks and feels well enough to increase to 40-50. OBJECTIVE: General appearance: well developed, well nourished and in no acute distress. Stands and moves comfortably. Motion is fluid and symmetric. There is only slight tenderness in theleft low back, buttocks or sacro-iliac joints. Forward bending is full. Lumbar extension is full. Side bending is full. Assessment: resolving acute low back pain. PLAN: Increase activity. 40 lb restriction. Recheck in 2 weeks if not at Maximal medical improvement reached with no permanent partial disability. Darius Enciso - 09/11/2003 12:00 AM CDT documented in this encounter Plan of Treatment Not on filedocumented as of this encounter Visit Diagnoses Diagnosis Lumbago documented in this encounter Care Teams Auto Customize Painter Relationship Specialty Start Date End Date Darius Enciso MD PCP - General 06/07/03 11/12/03 [facility] [address] [place] [address] documented as of this encounter
--- OUTSIDE RECORDS SUMMARY | 2021-12-07 20:37 | XMS_ITS | Encounter Summary ---
:1980 Author Organization [facility] Address [address] [facility] [place] [address] Care Team Providers Name Role Phone Jose Hood MD Primary Care Provider [phone] Encounter Details Date Type Department Care Team Description 11/30/2003 [facility] Bruno Tirado MD [address] [facility] [address] [place], [place] [address] [address] Bruno Tirado MD [address] [place] [address] [place] [address] Social History Tobacco Use Types Packs/Day Years Used Date Smoking Tobacco: Never Alcohol Use Standard Drinks/Week Comments Not Asked 0 (1 standard drink = 0.6 oz pure alcoho l) Sex Assigned at Date Recorded Not on file documented as of this encounter Medications at Time of Discharge Medication Sig Dispensed Refills Start Date End Date CYCLOBENZAPRINE HCL Take 1-2 tablets 30 0 11/13/2003 12/13/2003 (FLEXERIL) 10MG ORAL TABS by mouth three (3) times a day SULINDAC (CLINORIL) 200MG 1 TABLET TWICE 60 99 200302/12/2004 ORAL TABS DAILY as needed documented as of this encounter ED Notes Bruno Tirado MD - 11/30/2003 12:01 AM CDT ED Provider Notes signed by Bruno Tirado MD at 09/29/06 Author: Bruno Tirado MD Service: (none) Author Type: Physician Filed: 06/21/10 0042 Note Time: 11/30/032137 Status: Signed Solder Cream Maker: Bruno Tirdao MD (Physician) NAME: OLRA STEWART MR: [id number] ACCT: [id number] VISIT: AUTHENTICATING CLINICIAN: BRUNO TIRADO MD JOB: [id number] EMERG[facility]Y C[facility] REPORT - [facility] DATE OF SERVICE: 11/30/2003. CHIEF COMPLAINT: Foreign body to eye. HISTORY OF PRESENT ILLNESS: Was using a saw cutting metal, felt something fly into his left eye. Is not a contact or glasses wearer. No change in vision. No double vision. No painful eye, just irritated, feels like there is something there. Tried with his finger to get it out and could not get it out. Visual acuity has been normal. No other injury. PAST MEDICAL HISTORY/PAST SURGICAL HISTORY: Back pain. MEDICATIONS: None. ALLERGIES: NONE. SOCIAL HISTORY/FAMILY HISTORY: Social history: Here with his girlfriend. REVIEW OF SYSTEMS: As in HPI. All other systems are negative. PHYSICAL EXAMINATION: VITAL SIGNS: BP: 134/67. T: 98. P: 75. R: 16. Pulse ox: 97%. GENERAL: Alert, appropriate, 23-year-old speaking in full sentences, unlabored breathing. EYES: Visual acuity is 20/20 right, 20/20 left. Pupils are equal and reactive to light. Extraocular muscles are intact. On exam a small foreign body can be seen at approximately the 2 o'clock position lateral to the iris. No deep corneal abrasions. Negative Aleja's test. EMERGENCY DEPARTMENT COURSE: I placed Alcaine in the eye with good anesthesia using saline and a cotton Q-tip. The foreign body was removed. I showed it to the patient. He felt immediately better. He still has a small rust ring. Can get this removed by ophthalmology. Ophthalmology followup recommended in 7 to 10 days. IMPRESSION: Corneal foreign body. PLAN: Will be given gentamicin ophthalmic ointment to prevent infection, to place one ribbon in eye nightly for three days. DIAGNOSIS: Foreign body to eye. JJS:[id number] C: 11/30/03 22:04 DOCUMENT: [id number] documented in this encounter Plan of Treatment Not on filedocumented as of this encounter Visit Diagnoses Not on filedocumented in this encounter Care Teams Fresh Meat Grader Relationship Specialty Start Date End Date Jose Hood MD PCP - General 11/13/03 09/15/04 [facility] [place] [id number] documented as of this encounter
--- OUTSIDE RECORDS SUMMARY | 2021-12-07 20:37 | XMS_ITS | Encounter Summary ---
:1980 Author Organization [facility] Address [address] [place] [address] Care Team Providers Name Role Phone Jose Hood MD Primary Care Provider [phone] Reason for Visit Reason Onset Date Comments ERRONEOUS ENTRY 05/22/2004 Encounter Details Date Type Department Care Team Description 04/30/2004 Telephone [facility] Jose Hood, ERRONEOUS ENTRY Practice [address] [place] [address] [address] [facility] [place], [place] [address] (Wo rk) Social History Tobacco Use Types Packs/Day Years Used Date Smoking Tobacco: Never Alcohol Use Standard Drinks/Week Comments Not Asked 0 (1 standard drink = 0.6 oz pure alcoho l) Sex Assigned at Date Recorded Not on file documented as of this encounter Nursing Notes 04/30/2004 11:59 PM NUCLEAR INSTRUCTOR >> STACY Wolfe May 22, 2004 9:34 AM ERR >> STACY DUONG Tue Apr 30, 2004 8:20 AM Encounter initiated. documented in this encounter Plan of Treatment Not on filedocumented as of this encounter Visit Diagnoses Not on filedocumented in this encounter Care Teams Survival Specialist Relationship Specialty Start Date End Date Jose Hood MD PCP - General 11/13/03 09/15/[address] [place] [address] Dr [address] [place] [address] documented as of this encounter
--- OUTSIDE RECORDS SUMMARY | 2021-12-07 20:37 | XMS_ITS | Encounter Summary ---
:1980 Author Organization [facility] Address [address] [place] [address] Care Team Providers Name Role Phone Unassigned, Provider Primary Care Provider Unavailable Encounter Details Date Type Department Care Team Description 05/22/2003 Orders Only External to Unknown, [facility] [address] [place], [place] [address] (Wo rk) Social History Tobacco Use Types Packs/Day Years Used Date Smoking Tobacco: Never Alcohol Use Standard Drinks/Week Comments Not Asked 0 (1 standard drink = 0.6 oz pure alcoho l) Sex Assigned at Date Recorded Not on file documented as of this encounter Procedure Notes Unknown, Physician - 05/22/2003 12:00 AM CSTAssociated Order(s): MRI SPINE SC Darius Enciso - 05/22/2003 12:00 AM CSTAssociated Order(s): MRI SPINE SC TAINER OPERATOR documented in this encounter Plan of Treatment Not on filedocumented as of this encounter Procedures Procedure Name Priority Date/Time Associated Diagnosis Comme nts MRI SPINE SC 05/22/2003 12:00 AM Results for this MAINTAINER OPERATOR procedure are i n the results section. MRI SPINE SC 05/22/2003 12:00 AM Results for this MAINTAINER OPERATOR procedure are i n the results section. CT THRC SPI C-MATRL 05/22/2003 Results for this procedure are i n the results section. documented in this encounter Results MRI SPINE SC (05/22/2003 12:00 AM MAINTAINER OPERATOR) Anatomical Region Laterality Modality Other Narrative 05/22/2003 12:00 AM MAINTAINER OPERATOR This result has an attachment that is no t available. Ordered by an unspecified provider. Transcriptions Darius Enciso - 05/22/2003 12:00 A M MAINTAINER OPERATOR Physician Unknown DUMMY/OTHER/AR MRI SPINE SC (05/22/2003 12:00 AM MAINTAINER OPERATOR) Anatomical Region Laterality Modality Other Narrative 05/22/2003 12:00 AM MAINTAINER OPERATOR This result has an attachment that is no t available. Ordered by an unspecified provider. Transcriptions Unknown, Physician - 05/22/2003 12:00 AM MAINTAINER OPERATOR Physician Unknown DUMMY/OTHER/AR documented in this encounter Visit Diagnoses Not on filedocumented in this encounter Care Teams Paper And Pulp Mill Worker Relationship Specialty Start Date End Date Unassigned, Provider PCP - General 04/05/02 06/06/[address] [place] [address] documented as of this encounter
--- OUTSIDE RECORDS SUMMARY | 2021-12-07 20:37 | XMS_ITS | Encounter Summary ---
:1980 Author Organization [facility] Address [address] [place] [address] Care Team Providers Name Role Phone Darius Enciso MD Primary Care Provider Encounter Details Date Type Department Care Team Description 09/27/2003 Correspondence External to Unknown, [facility] [place] [address] [place], [place] [address] (Wo rk) Social History Tobacco Use Types Packs/Day Years Used Date Smoking Tobacco: Never Alcohol Use Standard Drinks/Week Comments Not Asked 0 (1 standard drink = 0.6 oz pure alcoho l) Sex Assigned at Date Recorded Not on file documented as of this encounter Progress Notes Unknown, Physician - 09/27/2003 12:00 AM CDT documented in this encounter Plan of Treatment Not on filedocumented as of this encounter Visit Diagnoses Not on filedocumented in this encounter Care Teams Glass Cylinder Flanger Relationship Specialty Start Date End Date Darius Enciso MD PCP - General 06/07/03 11/12/03 [facility] [address] [place] [address] documented as of this encounter
--- OUTSIDE RECORDS SUMMARY | 2021-12-07 20:37 | XMS_ITS | Encounter Summary ---
:1980 Author Organization [employer] Address [address] [place] [address] Care Team Providers Name Role Phone Jose Hood MD Primary Care Provider [phone] Reason for Visit Reason Onset Date Comments QUESTIONS, GENERAL 02/19/2004 Encounter Details Date Type Department Care Team Description 02/19/2004 Telephone [place] Jose Cotter S, ambulatory technologist [place] [address] [address] [facility] [address] [place], [place] [address] (Wo rk) Social History Tobacco Use Types Packs/Day Years Used Date Smoking Tobacco: Never Alcohol Use Standard Drinks/Week Comments Not Asked 0 (1 standard drink = 0.6 oz pure alcoho l) Sex Assigned at Date Recorded Not on file documented as of this encounter Nursing Notes 02/19/2004 11:59 PM CARVING 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 Hood's notes from last visit for the ir MD to approve Rx. fax sent >> JESSICA Sandra Feb 20, 2004 3:26 PM second msg left with Angela for the form to be faxed to us >> JESSICA Sandra Feb 20, 2004 9:46 AM patient states the celexa needs to be approved by the Ins Co[employer] [place] for workman's comp.They need in writing the reason this Rx is for workman's comp. Original back injury seems to have b een Mar 2003. Has been seen many times for this problem. Celexa was prescribed during the last v isit. See Dr. Hood's notes. Ins relief salesperson is Angela Dyer [phone]. Left her a msg to refa x the form they need. >> KANDACE Sandra Feb 20, 2004 8:25 AM RN please see if you can help. Kandace Jean Baptiste, CHARITY >> STACY Cortez Feb 19, 2004 1:41 PM CALL PT REGARDING WORK COMP NEEDING 'S NOTE OR OK FOR CELEXA RX TO BE FILLED AT [facility]. ( THEY ALREADY HAVE THE ORDER) BUT NEEDS DR. BARAHONA [place] TO FILL. documented in this encounter Plan of Treatment Not on filedocumented as of this encounter Visit Diagnoses Diagnosis Depressive disorder, not elsewhere class ified - Primary documented in this encounter Care Teams Drafter Automotive Design Layout Relationship Specialty Start Date End Date Jose Hood MD PCP - General 11/13/03 09/15/[address] [place] [address] [address] [place], [place] [address] documented as of this encounter
--- OUTSIDE RECORDS SUMMARY | 2021-12-07 20:37 | XMS_ITS | Encounter Summary ---
:1980 Author Organization [facility] Address [address] [place] [address] Care Team Providers Name Role Phone Darius Enciso MD Primary Care Provider Encounter Details Date Type Department Care Team Description 10/25/2003 Correspondence [facility] Belem Trejo MD LAB TEST F/U Practice [address] [facility] [address] [place] [address] [place], [place] [address] [phone] Social History Tobacco Use Types Packs/Day Years Used Date Smoking Tobacco: Never Alcohol Use Standard Drinks/Week Comments Not Asked 0 (1 standard drink = 0.6 oz pure alcoho l) Sex Assigned at Date Recorded Not on file documented as of this encounter Progress Notes Belem Trejo - 10/25/2003 12:00 AM CDT documented in this encounter Plan of Treatment Not on filedocumented as of this encounter Visit Diagnoses Not on filedocumented in this encounter Care Teams Veneer Jointer Offbearer Relationship Specialty Start Date End Date Darius Enciso MD PCP - General 06/07/03 11/12/03 [facility] [place] [address] [place] [address] documented as of this encounter
--- OUTSIDE RECORDS SUMMARY | 2021-12-07 20:37 | XMS_ITS | Encounter Summary ---
:1980 Author Organization [facility] Address [address] [place] [address] Care Team Providers Name Role Phone Unassigned, Provider Primary Care Provider Unavailable Encounter Details Date Type Department Care Team Description 05/23/2003 Correspondence External to Unknown, Physici an [employer] [address] [place] [address] (Wo rk) Social History Tobacco Use Types Packs/Day Years Used Date Smoking Tobacco: Never Alcohol Use Standard Drinks/Week Comments Not Asked 0 (1 standard drink = 0.6 oz pure alcoho l) Sex Assigned at Date Recorded Not on file documented as of this encounter Progress Notes Unknown, Physician - 05/23/2003 12:00 AM CUT OUT PRESS OPERATOR documented in this encounter Plan of Treatment Not on filedocumented as of this encounter Visit Diagnoses Not on filedocumented in this encounter Care Teams Filtrose Crusher Relationship Specialty Start Date End Date Unassigned, Provider PCP - General 04/05/02 06/06/03 [address] [place] [address] documented as of this encounter
--- OUTSIDE RECORDS SUMMARY | 2021-12-07 20:37 | XMS_ITS | Encounter Summary ---
:1980 Author Organization [facility] Address [address] [place] [address] Care Team Providers Name Role Phone Darius Enciso MD Primary Care Provider Encounter Details Date Type Department Care Team Description 06/15/2003 Office Visit [facility] Darius Enciso MD [address] [place] [address] [facility] [phone] [place] [address] (Wo rk) Social History Tobacco Use Types Packs/Day Years Used Date Smoking Tobacco: Never Alcohol Use Standard Drinks/Week Comments Not Asked 0 (1 standard drink = 0.6 oz pure alcoho l) Sex Assigned at Date Recorded Not on file documented as of this encounter Progress Notes Darius Enciso - 06/15/2003 12:00 AM CDT documented in this encounter Plan of Treatment Not on filedocumented as of this encounter Visit Diagnoses Not on filedocumented in this encounter Care Teams Undercoat Sprayer Relationship Specialty Start Date End Date Darius Enciso MD PCP - General 06/07/03 11/12/03 [facility] [address] [place] [address] documented as of this encounter
--- OUTSIDE RECORDS SUMMARY | 2021-12-07 20:37 | XMS_ITS | Encounter Summary ---
:1980 Author Organization [facility] [employer] Address [address] [place] [address] Care Team Providers Name Role Phone Jose Hood MD Primary Care Provider [phone] Encounter Details Date Type Department Care Team Description 05/15/2004 Therapy External to Jose Hood MD [address] [place] [address] (Wo rk) Social History Tobacco Use Types Packs/Day Years Used Date Smoking Tobacco: Never Alcohol Use Standard Drinks/Week Comments Not Asked 0 (1 standard drink = 0.6 oz pure alcoho l) Sex Assigned at Date Recorded Not on file documented as of this encounter Progress Notes Jose Hood - 05/15/2004 12:00 AM INVERTER AND CLIPPER RTER AND CLIPPER documented in this encounter Plan of Treatment Not on filedocumented as of this encounter Visit Diagnoses Not on filedocumented in this encounter Care Teams Novelty Candy Maker Relationship Specialty Start Date End Date Jose Hood MD PCP - General 11/13/03 09/15/[address] [place] [address] documented as of this encounter
--- OUTSIDE RECORDS SUMMARY | 2021-12-07 20:37 | XMS_ITS | Encounter Summary ---
:1980 Author Organization [facility] Address [address] [place] [address] Care Team Providers Name Role Phone Darius Enciso MD Primary Care Provider Encounter Details Date Type Department Care Team Description 10/23/2003 Orders [place] [address] [facility] [address] [place], [place] [address] [place] [address] [phone] (Wo rk) Social History Tobacco Use Types Packs/Day Years Used Date Smoking Tobacco: Never Alcohol Use Standard Drinks/Week Comments Not Asked 0 (1 standard drink = 0.6 oz pure alcoho l) Sex Assigned at Date Recorded Not on file documented as of this encounter Plan of Treatment Not on filedocumented as of this encounter Procedures Procedure Name Priority Date/Time Associated Diagnosis Comme nts GC (N. Routine 10/23/2003 11:56 AM Results for this GONORRHOEAE)(14 CDT procedure ar e in YEARS AND OLDER) the results section. HEPATITIS B Routine 10/23/2003 11:56 AM Results for this SURFACE, AB CDT procedure are i n the results section. HIV ANTIBODY Routine 10/23/2003 11:56 AM Results for this CDT procedure are i n the results section. RPR (SYPHILIS Routine 10/23/2003 11:56 AM Results for this SCREEN) CDT procedure are i n the results section. HBSAG (HEPATITIS B Routine 10/23/2003 11:56 AM Re sults for this SURFACE AG) CDT procedure are i n the results section. CHLAMYDIA (14 YEARS Routine 10/23/2003 11:56 AM R esults for this AND OLDER) CDT procedure are i n the results section. documented in this encounter Results RPR (SYPHYLIS SCREEN) (10/23/2003 11:56 AM CDT) [facility] Method Time Signature Syphilis Non-Reacti NR [facility] Screen(RPR) ve Specimen Anatomical Collection Method Collection Time Receive d Time (Source) Location / / Volume Laterality 10/23/2003 11:56 10/23/2003 AM CDT 11:57 AM CDT Belem Trejo MD LAB_1 Performing Organization Address [facility] Phon e Number [facility] [employer] [phone] [address] HIV 1/2 ANTIBODY (10/23/2003 11:56 AM CDT) [facility] Method Time Signature HIV 1/2 Non-Reacti NR [facility] Antibody ve Specimen Anatomical Collection Method Collection Time Receive d Time (Source) Location / / Volume Laterality 10/23/2003 11:56 10/23/2003 AM CDT 11:57 AM CDT Belem Trejo MD LAB_1 Performing Organization Address City/[facility] Phon e Number [facility] [employer] [phone] [address] HEPATITIS B SURFACE, AB (10/23/2003 11:56 AM CDT) athologist Signature Anti-HBs Negative NEG [facility] Specimen Anatomical Collection Method Collection Time Receive d Time (Source) Location / / Volume Laterality 10/23/2003 11:56 10/23/2003 AM CDT 11:57 AM CDT Belem Trejo MD LAB_1 Performing Organization Address [facility] Phon e Number [facility] [employer] [phone] [phone] HBSAG (B SURFACE ANTIGEN) (10/23/2003 11:56 AM CDT) P athologist Signature HBsAg Negative NEG [facility] Specimen Anatomical Collection Method Collection Time Receive d Time (Source) Location / / Volume Laterality 10/23/2003 11:56 10/23/2003 AM CDT 11:57 AM CDT Belem Trejo MD LAB_1 Performing Organization Address [facility]ZIP Code Phon e Number [facility] [employer] [phone] [phone] GC (N. GONORRHOEAE) (10/23/2003 11:56 AM CDT) [facility] gist Method Time Signature GC (N. Negative NEG [facility] gonorrhoeae) GC (N. Test [facility] gonorrhoeae) Performed by PCR Assay Source Urine [facility] Specimen Anatomical Collection Method Collection Time Receive d Time (Source) Location / / Volume Laterality 10/23/2003 11:56 10/23/2003 AM CDT 11:57 AM CDT Belem Trejo MD LAB_1 Performing Organization Address [facility]/ZIP Code Phon e Number [facility] [employer] [phone] [phone] CHLAMYDIA (10/23/2003 11:56 AM CDT) [facility] gist Method Time Signature Chlamydia Negative NEG [facility] Chlamydia Test Performed [facility] by PCR Assay Source Urine [facility] Specimen Anatomical Collection Method Collection Time Receive d Time (Source) Location / / Volume Laterality 10/23/2003 11:56 10/23/2003 AM CDT 11:57 AM CDT Belem Trejo MD LAB_1 Performing Organization Address City/[facility]/ZIP [facility] Phon e Number [facility] [employer] [phone] [phone] documented in this encounter Visit Diagnoses Not on filedocumented in this encounter Care Teams Customer Service Consultant Relationship Specialty Start Date End Date Darius Enciso MD PCP - General 06/07/03 11/12/03 [facility] [address] [place] [address] documented as of this encounter
--- OUTSIDE RECORDS SUMMARY | 2021-12-07 20:37 | XMS_ITS | Encounter Summary ---
:1980 Author Organization [facility] Address [address] [place] [address] Care Team Providers Name Role Phone Unassigned, Provider Primary Care Provider Unavailable Encounter Details Date Type Department Care Team Description 05/19/2003 Office Visit [facility] Darius Enciso, SCIATICA(ACUTE) Practice [address] [place], [place] [address] [facility] [phone] [place] [address] (Wo rk) Social History Tobacco Use Types Packs/Day Years Used Date Smoking Tobacco: Never Alcohol Use Standard Drinks/Week Comments Not Asked 0 (1 standard drink = 0.6 oz pure alcoho l) Sex Assigned at Date Recorded Not on file documented as of this encounter Last Filed Vital Signs Vital Sign Reading Time Taken Comments Blood Pressure 104/64 05/19/2003 11:10 AM NET DEVELOPER WITH WCF Pulse 60 05/19/2003 11:10 AM NET DEVELOPER WITH WCF Temperature 36.1 ??C (97 ??F) 05/19/2003 11:10 AM NET DEVELOPER WITH WCF Respiratory Rate 20 05/19/2003 11:10 AM NET DEVELOPER WITH WCF Oxygen Saturation - - Inhaled Oxygen Concentration - - Weight 73.6 kg (162 lb 3.2 oz) 05/19/2003 11:10 AM NET DEVELOPER WITH WCF Height - - Body Mass Index - - documented in this encounter Progress Notes 05/19/2003 11:10 AM NET DEVELOPER WITH WCF Augustus Ramirez is here today for f/u W/C 05/04/03- lower back pain. Weight taken with patient wearing work boots. Are you having other pain today, that you want to discuss with the provider? -NO Do you need refills on any of your medications today? -NO Preventive Services up to date? -ADVISED TO FOLLOW UP WITH PRIMARY CARE PROVIDER Immunizations up to date? -YES Do you ever feel physically threatened or emotionally afraid? -NOT ASKED Tobacco Status reviewed? (see History Social-Substance) -YES nursing attendant offered? -NOT APPLICABLE. Aspirin taken daily? -NO BP was taken on the RIGHT arm. BP cuff size used? -Adult Large Health Education given? -NO. 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 Date of injury is 05/04/03. He jumped about 9 feet landing on the outstretched straight right leg. This caused him to have a jarring effect on the back with sudden pain which persists. He had been taking it easy and was doing light duty. He had been seeing career development coordinator/teacher for a couple weeks but this resulted in no apparent change in his pain. Then today he became concerned because he suddenly experienced left sided pain with tingling in the buttock and tingling in the foot on the left. He had been seen a couple times at the [facility] and was treated symptomatically each time. O: Healthy adult male in no acute distress. His vital signs are unremarkable. Exam of the back shows that it's straight. He has about 50% extension, good side bending and flexion. Neurologic exam of the lower extremities is negative and SLR is negative. IMPRESSION: Acute low back pain with some sciatic or radicular component without neurologic findings. This suggests some radicular irritation by herniated disc. P: Continue symptomatic treatment as he has been doing. To obtain a lumbar MRI to document the either presence of absence of that and let the degree of disease dictate the aggressiveness of his treatment at the present time. In the meantime he is to continue with light duty at work and use medications previously prescribed by others and to follow-up with me depending on the results of the MRI. 11:24 A cc: DEVELOPER WITH WCF documented in this encounter Plan of Treatment Not on filedocumented as of this encounter Visit Diagnoses Diagnosis Sciatica (HRC) Sciatica documented in this encounter Care Teams Rag Shredder Relationship Specialty Start Date End Date Unassigned, Provider PCP - General 04/05/02 06/06/[address] [place] [address] documented as of this encounter
--- OUTSIDE RECORDS SUMMARY | 2021-12-07 20:37 | XMS_ITS | Encounter Summary ---
:1980 Author Organization [facility] Address [address] [place] [address] Care Team Providers Name Role Phone Darius Enciso MD Primary Care Provider Encounter Details Date Type Department Care Team Description 06/13/2003 Correspondence None Unknown, Physici an Med records communication [address] [place] [address] (Wo rk) Social History Tobacco Use Types Packs/Day Years Used Date Smoking Tobacco: Never Alcohol Use Standard Drinks/Week Comments Not Asked 0 (1 standard drink = 0.6 oz pure alcoho l) Sex Assigned at Date Recorded Not on file documented as of this encounter Progress Notes Unknown, Physician - 06/13/2003 12:00 AM CDT documented in this encounter Plan of Treatment Not on filedocumented as of this encounter Visit Diagnoses Not on filedocumented in this encounter Care Teams Viscose Cellar Charge Hand Relationship Specialty Start Date End Date Darius Enciso MD PCP - General 06/07/03 11/12/03 [facility] [address] [place] [address] documented as of this encounter
--- OUTSIDE RECORDS SUMMARY | 2021-12-07 20:37 | XMS_ITS | Encounter Summary ---
:1980 Author Organization [employer] Address [address] [facility] [place] [address] Care Team Providers Name Role Phone Darius Enciso MD Primary Care Provider Encounter Details Date Type Department Care Team Description 10/11/2003 Office Visit [facility] Jose Hood LOW BACK PAIN(ACUTE)<6 Practice MD Mark[facility] [address] [place] [address] [place] [address] [place], [place] [address] Social History Tobacco Use Types Packs/Day Years Used Date Smoking Tobacco: Never Alcohol Use Standard Drinks/Week Comments Not Asked 0 (1 standard drink = 0.6 oz pure alcoho l) Sex Assigned at Date Recorded Not on file documented as of this encounter Last Filed Vital Signs Vital Sign Reading Time Taken Comments Blood Pressure 110/76 10/11/2003 9:20 AM CDT Pulse 88 10/11/2003 9:20 AM CDT Temperature - - Respiratory Rate 16 10/11/2003 9:20 AM CDT Oxygen Saturation - - Inhaled Oxygen Concentration - - Weight 74.5 kg (164 lb 3.2 oz) 10/11/2003 9:20 AM CDT Height - - Body Mass Index - - documented in this encounter Progress Notes 10/11/2003 9:20 AM CDT Augustus Ramirez is here today for f/u back pain W/C DOI: 06/01/03. Are you having other pain today, that you want to discuss with the provider? -NO Do you need refills on any of your medications today? -NO Preventive Services up to date? -YES Immunizations up to date? -YES Do you ever feel physically threatened or emotionally afraid? -NOT ASKED Tobacco Status reviewed? (see History Social-Substance) -YES launderette attendant offered? -NOT APPLICABLE. Aspirin taken daily? -NO BP was taken on the RIGHT arm. BP cuff size used? -Adult Large Health Education given? -NO. Contact phone number [phone] (home) , alternate phone number- BP 110/76 Pulse 88 Resp 16 Wt 164 lbs 3 oz (74.5kg) Current outpatient prescriptions: SULINDAC (CLINORIL) 200MG ORAL TABS,1 TABLET TWICE DAILY as needed,Disp: 60,Rfl: 99 Review of patient's allergies indicates no known allergies. Sophie Jean Baptiste LPN 10/11/2003 9:20 AM Jose Hood - 10/11/2003 12:00 AM CDTSUBJECTIVE: Patient here for follow up of back pain. Since last visit, he has had improvement in his back pain. Please see previous note of 09/25 for details. Last week he worked one day at four hours for the day and has worked four hours a day this week. He has had some stiffness in his back, however, no severe pain. No radiation of pain into his legs. No change in his bowel habits. No fever or chills. OBJECTIVE: Alert. In no acute distress. Examination of the back reveals no obvious deformity. Good range of motion. Able to touch the floor. ASSESSMENT: Resolving low back strain. PLAN: Continue four hour days this week, then increase to six hour days next week and follow up in ten days. 20 minutes spent with patient, over 10 of which involved counseling and coordination of care. P cc: Jose Hood - 10/11/2003 12:00 AM CDT documented in this encounter Plan of Treatment Not on filedocumented as of this encounter Visit Diagnoses Diagnosis Lumbago documented in this encounter Care Teams Tool Chaser Relationship Specialty Start Date End Date Darius Enciso MD PCP - General 06/07/03 11/12/03 [facility] [address] [place] [address] documented as of this encounter
--- OUTSIDE RECORDS SUMMARY | 2021-12-07 20:37 | XMS_ITS | Encounter Summary ---
:1980 Author Organization [facility] Address [address] [place] [address] Care Team Providers Name Role Phone Unassigned, Provider Primary Care Provider Unavailable Encounter Details Date Type Department Care Team Description 05/25/2003 Telephone [facility] [place] [address] [place], [place] [address] [facility] [phone] [place] [address] (Wo rk) Social History Tobacco Use Types Packs/Day Years Used Date Smoking Tobacco: Never Alcohol Use Standard Drinks/Week Comments Not Asked 0 (1 standard drink = 0.6 oz pure alcoho l) Sex Assigned at Date Recorded Not on file documented as of this encounter Progress Notes Darius Enciso - 05/25/2003 12:00 AM ABSORBER OPERATOR RBER OPERATOR documented in this encounter Plan of Treatment Not on filedocumented as of this encounter Visit Diagnoses Not on filedocumented in this encounter Care Teams Endoscopy Support Specialist Relationship Specialty Start Date End Date Unassigned, Provider PCP - General 04/05/02 06/06/03 [address] [place] [address] documented as of this encounter
--- OUTSIDE RECORDS SUMMARY | 2021-12-07 20:37 | XMS_ITS | Encounter Summary ---
:1980 Author Organization [employer] Address [address] [facility] [place] [address] Care Team Providers Name Role Phone Darius Enciso MD Primary Care Provider Encounter Details Date Type Department Care Team Description 09/26/2003 Office Visit Jose Desir LOW BACK PAIN(ACUTE)<6 WEEKS; Practice MD Markus LOW BACK PAIN (CHRONIC)>[address] [place] [address] [place] [address] [place], [place] [address] Social History Tobacco Use Types Packs/Day Years Used Date Smoking Tobacco: Never Alcohol Use Standard Drinks/Week Comments Not Asked 0 (1 standard drink = 0.6 oz pure alcoho l) Sex Assigned at Date Recorded Not on file documented as of this encounter Last Filed Vital Signs Vital Sign Reading Time Taken Comments Blood Pressure 110/52 09/26/2003 8:00 AM CDT Pulse 92 09/26/2003 8:00 AM CDT Temperature - - Respiratory Rate 16 09/26/2003 8:00 AM CDT Oxygen Saturation - - Inhaled Oxygen Concentration - - Weight 75.8 kg (167 lb) 09/26/2003 8:00 AM CDT Height - - Body Mass Index - - documented in this encounter Progress Notes 09/26/2003 8:00 AM CDT Augustus Ramirez is here today for f/u W/C low back pain DOI: 06/01/03. Are you having other pain today, that you want to discuss with the provider? -NO Do you need refills on any of your medications today? -NO Preventive Services up to date? -YES Immunizations up to date? -YES Do you ever feel physically threatened or emotionally afraid? -NOT ASKED Tobacco Status reviewed? (see History Social-Substance) -YES linen room attendant offered? -NOT APPLICABLE. Aspirin taken daily? -NO BP was taken on the RIGHT arm. BP cuff size used? -Adult Large Health Education given? -NO. Contact phone number [phone] (home) , alternate phone number- BP 110/52 Pulse 92 Resp 16 Wt 167 lbs (75.8kg) No current outpatient prescriptions on file. Review of patient's allergies indicates no known allergies. Sophie Jean Baptiste LPN 09/26/2003 8:02 AM Jose Hood - 09/26/2003 12:00 AM CDTSUBJECTIVE: The patient is here for follow-up of worker's compensation back injury. Please see notes from 09/10 and 08/27 for details. 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 Two days later he had significant pain in his back. No radiation of pain into his legs. Symptoms have improved since then. OBJECTIVE: Alert, no acute distress. Examination of the back reveals mild tenderness over the lumbar, paraspinous muscles. Good range of motion of the back. Negative straight leg raise. Sensation and motor exam intact. ASSESSMENT: Acute and chronic low back pain. PLAN: Extensive discussion with the patient with regards to management of his symptoms. He will be on light duty over the next week and then return to full duty for two hours a day for the first week and four hours a day for the next week. Follow-up at that time for recheck. A cc: Jose Hood - 09/26/2003 12:00 AM CDT documented in this encounter Plan of Treatment Not on filedocumented as of this encounter Visit Diagnoses Diagnosis Lumbago Other unspecified back disorder documented in this encounter Care Teams Investigation Specialist Relationship Specialty Start Date End Date Darius Enciso MD PCP - General 06/07/03 11/12/03 [facility] [address] [place] [address] documented as of this encounter
--- OUTSIDE RECORDS SUMMARY | 2021-12-07 20:37 | XMS_ITS | Encounter Summary ---
:1980 Author Organization [employer] Address [address] [facility] [place] [address] Care Team Providers Name Role Phone Jose Hood MD Primary Care Provider [phone] Reason for Referral Specialty Diagnoses / Procedures Referred By Contact Refer red To Contact Jose Hood MD [facility] [place] [address] [address] Referral ID Status Reason Start Date Expiration Date Visits Requ ested Visits Authorized ATIONAL TECHNICIAN Reason for Visit Reason Comments BACK PAIN f/u W/C back pain DOI: 4 Encounter Details Date Type Department Care Team Description 04/29/2004 Office Visit [facility] Jose Hood BACKACHE NOS (Primary Practice MD Markus Dx) [address] [place] [address] [address] [place] [id number] Social History Tobacco Use Types Packs/Day Years Used Date Smoking Tobacco: Never Alcohol Use Standard Drinks/Week Comments Not Asked 0 (1 standard drink = 0.6 oz pure alcoho l) Sex Assigned at Date Recorded Not on file documented as of this encounter Last Filed Vital Signs Vital Sign Reading Time Taken Comments Blood Pressure 100/58 04/29/2004 2:19 PM EDUCATIONAL TECHNICIAN Pulse 68 04/29/2004 2:19 PM EDUCATIONAL TECHNICIAN Temperature - - Respiratory Rate 16 04/29/2004 2:19 PM EDUCATIONAL TECHNICIAN Oxygen Saturation - - Inhaled Oxygen Concentration - - Weight 81.3 kg (179 lb 3.2 oz) 04/29/2004 2:19 PM EDUCATIONAL TECHNICIAN Height - - Body Mass Index - - documented in this encounter Progress Notes 04/29/2004 2:20 PM EDUCATIONAL TECHNICIAN This encounter has been dictated. MD Sana Wilde Robert Anthony - 04/29/2004 12:00 AM CSTSUBJECTIVE: The patient here for followup of work comp back injury. Please see previous notes from 02/12/04 for details. He has finished his course of therapy at [facility]. States that he has been having neck pain over the past few months. No radiation into his arms. The pain is localized to the paraspinous muscles and trapezius muscles bilaterally. 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 No numbness or weakness. OBJECTIVE: Alert, in no acute distress. Good range of motion of the neck. Good mechanical specialist strength. Normal sensation. Deep tendon reflexes 2+ bilaterally. Examination of the low back reveals excellent forward flexion. Limited extension and lateral bending. Minimal tenderness in the lumbar paraspinous muscles. ASSESSMENT: Cervical strain. Chronic low back pain. PLAN: Extensive discussion with the patient with regards to his symptoms. He is interested in cortisone shots for his neck and back pain. However, his symptoms are too widespread at this point to consider cortisone injections. He is interested in following up with physiatry, and referral is processed. Follow up in the clinic p.r.n. Twenty-five minutes spent with the patient, over 15 of which involved counseling and coordination of care. P cc: ATIONAL TECHNICIAN documented in this encounter Plan of Treatment Scheduled Referrals Name Type Priority Associated Diagnoses [facility] Referral Routine Backache Nos Ordered: 2004 documented as of this encounter Visit Diagnoses Diagnosis Backache, unspecified - Primary documented in this encounter Care Teams Senior Microstrategy Developer Relationship Specialty Start Date End Date Jose Hood MD PCP - General 11/13/03 09/15/04 [facility] [place] [address] documented as of this encounter
--- OUTSIDE RECORDS SUMMARY | 2021-12-07 20:37 | XMS_ITS | Encounter Summary ---
:1980 Author Organization [facility] Address [address] [place] [address] Care Team Providers Name Role Phone Unassigned, Provider Primary Care Provider Unavailable Encounter Details Date Type Department Care Team Description 05/19/2003 Correspondence None Unknown, Physici an CONSENT AND RELEASE [address] [place] [address] (Wo rk) Social History Tobacco Use Types Packs/Day Years Used Date Smoking Tobacco: Never Alcohol Use Standard Drinks/Week Comments Not Asked 0 (1 standard drink = 0.6 oz pure alcoho l) Sex Assigned at Date Recorded Not on file documented as of this encounter Progress Notes Unknown, Physician - 05/19/2003 12:00 AM MRI TECH documented in this encounter Plan of Treatment Not on filedocumented as of this encounter Visit Diagnoses Not on filedocumented in this encounter Care Teams Jewel Sawyer Relationship Specialty Start Date End Date Unassigned, Provider PCP - General 04/05/02 06/06/03 [address] [place] [address] documented as of this encounter
--- OUTSIDE RECORDS SUMMARY | 2021-12-07 20:37 | XMS_ITS | Encounter Summary ---
:1980 Author Organization [facility] Address [address] [place] [address] Care Team Providers Name Role Phone Robin Duncan MD Primary Care Provider Encounter Details Date Type Department Care Team Description 06/21/2004 PN Conversion Only [facility] [address] [place] [address] Social History Tobacco Use Types Packs/Day Years Used Date Smoking Tobacco: Never Alcohol Use Standard Drinks/Week Comments Not Asked 0 (1 standard drink = 0.6 oz pure alcoho l) Sex Assigned at Date Recorded Not on file documented as of this encounter Plan of Treatment Not on filedocumented as of this encounter Visit Diagnoses Not on filedocumented in this encounter Care Teams Farmworker [employer] Relationship Specialty Start Date End Date Robin Duncan MD PCP - General 06/03/10 10/17/12 [address] [place] [address] documented as of this encounter
--- OUTSIDE RECORDS SUMMARY | 2021-12-07 20:37 | XMS_ITS | Encounter Summary ---
:1980 Author [facility] Address [address] [place] [address] Care Team Providers Name Role Phone Jose Hood MD Primary Care Provider [phone] Encounter Details Date Type Department Care Team Description 04/01/2004 Therapy External to Jose Hood MD [address] [place] [address] [address] [place] [place] [address] (Wo rk) Social History Tobacco Use Types Packs/Day Years Used Date Smoking Tobacco: Never Alcohol Use Standard Drinks/Week Comments Not Asked 0 (1 standard drink = 0.6 oz pure alcoho l) Sex Assigned at Date Recorded Not on file documented as of this encounter Progress Notes Jose Hood - 04/01/2004 12:00 AM FIBERGLASS CONTAINER WINDING OPERATOR RGLASS CONTAINER WINDING OPERATOR Jose Hood - 04/01/2004 12:00 AM FIBERGLASS CONTAINER WINDING OPERATOR RGLASS CONTAINER WINDING OPERATOR documented in this encounter Plan of Treatment Not on filedocumented as of this encounter Visit Diagnoses Not on filedocumented in this encounter Care Teams Coding Support Specialist Relationship Specialty Start Date End Date Jose Hood MD PCP - General 11/13/03 09/15/[address] [place] [address] [address] [facility] [address] documented as of this encounter
--- OUTSIDE RECORDS SUMMARY | 2021-12-07 20:38 | XMS_ITS | Encounter Summary ---
:1980 Author Organization [employer] Address [address] [place] [address] Care Team Providers Name Role Phone [facility] Primary Care Provider [phone] Sada Cagle Unavailable [phone] Reason for Visit Mental Health Outpatient (Routine) - Pending Review Specialty Diagnoses / Procedures Referred By Contact Refer red To Contact Behavioral Health Procedures Ur Adult Mh Partial Ur Adult Mh Day Tx MH IOP (6A) [facility] [address], [address] [place], [place] [address] [place], [place] Phone: [phone] Referral ID Status Reason Start Date Expiration Date Visits V isits Requested Authorized [id number] Pending 10/16/2021 10/16/2022 36 23 Review Encounter Details Date Type Department Care Team Description 11/15/2021 Hospital Encounter [facility] Demarco Weaver [facility] & MD Omar episode of major Addiction Services [address] depressive disorder [address] without prior episode [address] [place], (H) (Primary Dx) [facility] [id number] Social History Tobacco Use Types Packs/Day Years Used Date Current Every Day Smoker Alcohol Use Standard Drinks/Week Comments Yes 0 (1 standard drink = 0.6 oz pure alcoho l) Sex Assigned at Date Recorded Not on file documented as of this encounter Medications at Time of Discharge Medication Sig Dispensed Refills Start Date End Date amphetamine-dextroamphetam Take 20 mg by mouth 3 0 ine (ADDERALL) 20 MG times daily tablet Ascorbic Acid (VITAMIN C) Take 500 mg by mouth 0 500 MG CAPS daily cetirizine (ZYRTEC) 10 MG Take 10 mg by mouth 0 tablet daily Vitamin D3 Take 125 mcg by mouth 0 (CHOLECALCIFEROL) 125 MCG daily (5000 UT) tablet documented as of this encounter Miscellaneous Notes Group Note - Sophie Santiago LICSW - 11/15/2021 1:39 PM CDT Psychotherapy Group Note PATIENT'S NAME: Augustus Ramirez Jr. : 1980 ACCT. NUMBER: [id number] DATE OF SERVICE: 11/15/21 START TIME: 11:00 AM END TIME: 11:50 AM WAFER FAB TECHNICIAN: Sophie Santiago LICSW TOPIC: EBP Group: Coping Skills [facility] Adult Mental Health Day Treatment TRACK: 6A Telemedicine Visit: The patient's condition can be safely assessed and treated via synchronous audioand visual telemedicine encounter. Reason for Telemedicine Visit: Services only offered telehealth Originating Site (Patient Location): Patient's home Distant Site (Provider Location): [facility]: [facility] Consent: The patient/guardian has verbally consented to: the potential risks and benefits of telemedicine (video visit) versus in person care; bill my insurance or make self-payment for services provided; and responsibility for payment of non-covered services. Mode of Communication: Video Conference via zoom As the provider I attest to compliance with applicable laws and regulations related to telemedicine. NUMBER OF PARTICIPANTS: 3 Summary of Group / Topics Discussed: Coping Skills: GLADLY GO and Weekend Planning: Patients discussed past week's accomplishments and set goals for the weekend. Reviewed the benefits of applying the aforementioned coping strategies. Patients explored how these strategies might be applied to daily stressors or distressing situations. Patient Session Goals / Objectives: ?? Understand the purpose and benefits of applying GLADLY GO coping strategies ?? Identified positives and accomplishments from the past week ?? Set weekend goals ?? Address barriers to utilizing coping skills when in distress. Patient Participation / Response: Fully participated with the group by sharing personal reflections / insights and openly received / provided feedback with other participants. Demonstrated understanding of topics discussed through group discussion and participation and Expressed understanding of the relevance / importance of coping skills at distressing times in life Treatment Plan: Patient has a current master individualized treatment plan. See [facility] treatment plan for more information. ADWOA Self Group Note - Sophie Santiago LICSW - 11/15/2021 10:56 AM CDT Psychotherapy Group Note PATIENT'S NAME: Augustus Ramirez Jr. : 1980 ACCT. NUMBER: [id number] DATE OF SERVICE: 11/15/21 START TIME: 10:00 AM END TIME: 10:50 AM WAFER FAB TECHNICIAN: Sophie Santiago LICSW TOPIC: EBP Group: Emotions Management [facility] Adult Mental Health Day Treatment TRACK: 6A Telemedicine Visit: The patient's condition can be safely assessed and treated via synchronous audioand visual telemedicine encounter. Reason for Telemedicine Visit: Services only offered telehealth Originating Site (Patient Location): Patient's home Distant Site (Provider Location): [facility]: [facility] Consent: The patient/guardian has verbally consented to: the potential risks and benefits of telemedicine (video visit) versus in person care; bill my insurance or make self-payment for services provided; and responsibility for payment of non-covered services. Mode of Communication: Video Conference via zoom As the provider I attest to compliance with applicable laws and regulations related to telemedicine. NUMBER OF PARTICIPANTS: 3 Summary of Group / Topics Discussed: Emotions Management: Model of Emotions: Patients were introduced to the cyclical model of emotions. Explored emotions are shaped by different events and one???s interpretation of events. Group discussed how emotions begin with an event, followed by one???s interpretation, followed by associated feelings. Discussion included a review of personal urges and actions that can/do follow an emotional experience in the patient???s life, and the end results. Patient Session Goals / Objectives: ?? Demonstrate understanding of types various emotions. ?? Identify and discuss specific emotions and when they occur; understand triggers. ?? Identify individual emotions and physical sensations that accompany them. ?? Discuss urges and actions, and how to influence the intensity of emotional reactions and disrupt the cycle. ?? Discuss barriers to emotional regulation. ?? Choose 1-2 strategies to assist with emotional response to potentially distressing situations. Patient Participation / Response: Fully participated with the group by sharing personal reflections / insights and openly received / provided feedback with other participants. Demonstrated understanding of topics discussed through group discussion and participation and Expressed understanding of the relevance / importance of emotions management skills at distressing times inlife Treatment Plan: Patient has a current master individualized treatment plan. See [facility] treatment plan for more information. ADWOA Self Group Note - Sophie Santiago LICSW - 11/15/2021 10:55 AM CDT Process Group Note PATIENT'S NAME: Augustus Ramirez Jr. : 1980 ACCT. 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 Reason for Telemedicine Visit: Services only offered telehealth Originating Site (Patient Location): Patient's home Distant Site (Provider Location): [facility]: [facility] Consent: The patient/guardian has verbally consented to: the potential risks and benefits of telemedicine (video visit) versus in person care; bill my insurance or make self-payment for services provided; and responsibility for payment of non-covered services. Mode of Communication: Video Conference via zoom As the provider I attest to compliance with applicable laws and regulations related to telemedicine. NUMBER OF PARTICIPANTS: 3 Data: Session content: At the start of this group, patients were invited to check in by identifying themselves, describing their current emotional status, and identifying issues to address in this group. Area(s) of treatment focus addressed in this session included Symptom Management and Personal Safety. Pt reports feeling ok. He goes on to say: I am carrying around guilt and shame for no particular reason. Pt is looking forward to second individual therapy appointment today, although he is worried about what may be uncovered. He feels proud of going to the [employer] store independently and taking his mom to the dr. Discussed taking small steps to decrease agoraphobia. He may go on date with his this weekend. Denies safety concerns. Therapeutic Interventions/Treatment Strategies: Psychotherapist offered support, feedback and validation and reinforced use of skills. Treatment modalities used include Cognitive Behavioral Therapy. Interventions include Behavioral Activation: Explored how behaviors effect mood and interact with thoughts and feelings, Cognitive Restructuring: Explored impact of ineffective thoughts / distortions on mood and activity and Assisted patient in identifying new neutral/positive core beliefs and Coping Skills: Discussed use of self-soothe skills to decrease distress in the body and Assisted patient in understanding the purpose of planning / creating / p articipating / sharing in positive experiences. Assessment: Patient response: Patient responded to session by accepting feedback, giving feedback, listening, focusing on goals, being attentive and accepting support Possible barriers to participation / learning include: and no barriers identified Health Issues: None reported Substance Use Review: Substance Use: alcohol and cannabis . and Last use: last night Mental Status/Behavioral Observations Appearance: Appropriate Eye Contact: Good Psychomotor Behavior: Normal Attitude: Cooperative Orientation: All Speech Rate / Production: Normal Volume: Normal Mood: Anxious Depressed Affect: Appropriate Thought Content: Rumination Thought Form: Coherent Insight: Fair Plan: ??? Safety Plan: No current safety concerns identified. Recommended that patient call 911 or go to the local ED should there be a change in any of these risk factors. ??? Barriers to treatment: None identified ??? Patient Contracts (see media tab): None ??? Substance Use: encouraged self-reflection ??? Continue or Discharge: Patient will continue in Adult Day Treatment (ADT) as planned. Patient islikely to benefit from learning and using skills as they work toward the goals identified in their treatment plan. ADWOA Self November 15, 2021 documented in this encounter Plan of Treatment Upcoming Encounters Date Type Specialty Care Team Description 12/10/2021 Appointment Sarai Galindo MD [address] [place] [phone] (Wo rk) 12/11/2021 Appointment Sarai Galindo MD [address] [place] [address] [phone] (Wo rk) 12/11/2021 Appointment Sarai Galindo MD [address] [place] [address] [phone] (Wo rk) 12/13/2021 Appointment Sarai Galindo MD [address] [place] [address] [phone] (Wo rk) 12/17/2021 [place] [address] [place] [address] [phone] (Wo rk) 12/18/2021 Appointment Sarai Galindo MD [address] [place] [address] [phone] (Wo rk) documented as of this encounter Visit Diagnoses Diagnosis Current moderate episode of major depres sive disorder without prior episode (H) - Primary documented in this encounter Additional Health Concerns Assessment Noted Time PHQ-9 Depression Total Score: 14 09/30/2021 8:52 AM CD T documented as of this encounter Care Teams Financial Adviser Relationship Specialty Start Date End Date [facility] PCP - General 09/21/21 [address] [facility] [place] [address] [facility] 09/21/21 [address] [place] [address] documented as of this encounter
--- OUTSIDE RECORDS SUMMARY | 2021-12-07 20:38 | XMS_ITS | Encounter Summary ---
:1980 Author Organization [facility] Address [address] [place] [address] Care Team Providers Name Role Phone [facility] Primary Care Provider [phone] Sada Cagle Unavailable [phone] Reason for Visit Mental Health Outpatient (Routine) - Pending Review Specialty Diagnoses / Procedures Referred By Contact Refer red To Contact Behavioral Health Procedures Ur Adult Mh Partial Ur Adult Mh Day Tx MH IOP (6A) [facility] [address], [address] [place], [place] [address] [address] [place], [place] Phone: [phone] Referral ID Status Reason Start Date Expiration Date Visits V isits Requested Authorized [id number] Pending 10/16/2021 10/16/2022 36 23 Review Encounter Details Date Type Department Care Team Description 11/19/2021 Hospital Encounter [facility] Demarco Weaver [facility] & MD Omar episode of major Addiction Services [address] depressive disorder [address] without prior episode [address] [place], (H) (Primary Dx) [facility] [id number] [phone] Social History Tobacco Use Types Packs/Day [...] this encounter Miscellaneous Notes Group Note - Roby Tejada LMFT - 11/19/2021 3:34 PM CDT Psychotherapy Group Note PATIENT'S NAME: Augustus Ramirez Jr. : 1980 ACCT. NUMBER: [id number] DATE OF SERVICE: 11/19/21 START TIME: 11:00 AM END TIME: 11:50 AM SITE SURVEYOR: Roby Tejada LMFT TOPIC: EBP Group: Coping Skills [facility] Adult Mental Health Day Treatment TRACK: 6A NUMBER OF PARTICIPANTS: 4 Summary of Group / Topics Discussed: Coping Skills: Radical Acceptance: Patients learned radical acceptance as a way to tolerate heightened stress in the moment. Patients identified situations that necessitate radical acceptance. They focused on applying acceptance of the moment to tolerate difficult emotions and events. Patients discussed how to distinguish when this can be useful in their lives and when other skills are more relevant or helpful. Patient Session Goals / Objectives: ?? Understand that some amount of pain exists for each of us in our lives ?? Process the difficulty of acceptance in our lives and benefits of radical acceptance to mood and functioning. ?? Demonstrate understanding of when to use the radical acceptance to tolerate distress by providingexamples of situations where this could be applied. ?? Identify barriers to applying radical acceptance to difficult situations and explore strategies to overcome them Service Modality: Video Visit Telemedicine Visit: The patient's condition can be safely assessed and treated via synchronous audioand visual telemedicine encounter. Reason for Telemedicine Visit: Services only offered telehealth and due to COVID-19. Originating Site (Patient Location): Patient's home Distant Site (Provider Location): Provider Remote Setting- Home Office Consent: The patient/guardian has verbally consented to: the potential risks and benefits of telemedicine (video visit) versus in person care; bill my insurance or make self-payment for services provided; and responsibility for payment of non-covered services. Patient would like the video invitation sent by: My Chart Mode of Communication: Video Conference via Medical Zoom As the provider I attest to compliance with applicable laws and regulations related to telemedicine. Patient Participation / Response: Fully participated with the group by sharing personal reflections / insights and openly received / provided feedback with other participants. Francisco reported he was not sure what he would use radical acceptance for because he feels he accepts most things, such as his mother's illness and some of the events of his childhood. Therapist suggested, as he continues to do therapy and get in touch with his feelings, he might identify areas where it would be helpful to use radical acceptance. Demonstrated understanding of topics discussed through group discussion and participation, Expressedunderstanding of the relevance / importance of coping skills at distressing times in life and Identified / Expressed personal readiness to practice new coping skills Treatment Plan: Patient has a current master individualized treatment plan. See [facility] treatment plan for more information. DENNIS Peterson Group Note - Sophie Santiago LICSW - 11/19/2021 3:11 PM CDT Psychotherapy Group Note PATIENT'S NAME: Augustus Ramirez Jr. : 1980 ACCT. NUMBER: [id number] DATE OF SERVICE: 11/19/21 START TIME: 10:00 AM END TIME: 10:50 AM SITE SURVEYOR: Sophie Santiago LICSW TOPIC: EBP Group: Coping Skills [facility] Adult Mental Health Day Treatment TRACK: 6A Telemedicine Visit: The patient's condition can be safely assessed and treated via synchronous audioand visual telemedicine encounter. Reason for Telemedicine Visit: Services only offered telehealth Originating Site (Patient Location): Patient's home Distant Site (Provider Location): [facility]: [facility] Consent: The patient/guardian has verbally consented to: the potential risks and benefits of telemedicine (video visit) versus in person care; bill my insurance or make self-payment for services provided; and responsibility for payment of non-covered services. Mode of Communication: Video Conference via zoom As the provider I attest to compliance with applicable laws and regulations related to telemedicine. NUMBER OF PARTICIPANTS: 5 Summary of Group / Topics Discussed: Coping Skills: Additional Coping Skills: Patients discussed the benefits of laughter and ways to increase humor in one's life. Reviewed the benefits of applying the aforementioned coping strategies. Patients explored how these strategies might be applied to daily stressors or distressing situations. Patient Session Goals / Objectives: ?? Understand the purpose and benefits of applying humor coping strategies ?? Identified ways to increase laughter in day to day life ?? Address barriers to utilizing coping skills when in distress. Patient Participation / Response: Fully participated with the group by sharing personal reflections / insights and openly received / provided feedback with other participants. Demonstrated understanding of topics discussed through group discussion and participation, Expressedunderstanding of the relevance / importance of coping skills at distressing times in life and Identified / Expressed personal readiness to practice new coping skills Treatment Plan: Patient has a current master individualized treatment plan. See [facility] treatment plan for more information. ADWOA Self Group Note - Sophie Santiago LICSW - 11/19/2021 1:58 PM CDT Process Group Note PATIENT'S NAME: Augustus Ramirez Jr. : 1980 ACCT. 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 Reason for Telemedicine Visit: Services only offered telehealth Originating Site (Patient Location): Patient's home Distant Site (Provider Location): [facility]: [facility] Consent: The patient/guardian has verbally consented to: the potential risks and benefits of telemedicine (video visit) versus in person care; bill my insurance or make self-payment for services provided; and responsibility for payment of non-covered services. Mode of Communication: Video Conference via zoom As the provider I attest to compliance with applicable laws and regulations related to telemedicine. NUMBER OF PARTICIPANTS: 5 Data: Session content: At the start of this group, patients were invited to check in by identifying themselves, describing their current emotional status, and identifying issues to address in this group. Area(s) of treatment focus addressed in this session included Symptom Management and Personal Safety. Pt states that depression has increased and is rearing it's ugly head. He is anxious about upcoming trip to [place] with his mom and aunt. He is taking his mother to see his brother, for likely the last visit, because she is dying. Pt identifies increased agoraphobia and a desire to hide. He is alsosaw his therapist again and he identifies digging a little deeper. He reports increase drinking this weekend, including starting earlier in the day. Discussed ways to self-soothe both before and during the trip. Denies safety concerns. Therapeutic Interventions/Treatment Strategies: Psychotherapist offered support, feedback and validation, provided redirection and reinforced use ofskills. Treatment modalities used include Cognitive Behavioral Therapy. Interventions include CopingSkills: Discussed use of self- soothe skills to decrease distress in the body and Symptoms Management: Promoted understanding of their diagnoses and how it impacts their functioning. Assessment: Patient response: Patient responded to session by accepting feedback, giving feedback, listening, focusing on goals, being attentive and accepting support Possible barriers to participation / learning include: and no barriers identified Health Issues: None reported Substance Use Review: Substance Use: alcohol and cannabis . and Last use: last night Mental Status/Behavioral Observations Appearance: Appropriate Eye Contact: Good Psychomotor Behavior: Restless Attitude: Cooperative Orientation: All Speech Rate / Production: Normal Volume: Normal Mood: Anxious Depressed Anhedonia Fearful Affect: Worrisome Thought Content: Rumination Thought Form: Coherent Obsessive Insight: Fair Plan: ??? Safety Plan: No [...] in their treatment plan. ADWOA Self November 19, 2021 documented in this encounter Plan of Treatment Upcoming Encounters Date Type Specialty Care Team Description 12/10/2021 Appointment Sarai Galindo MD [address] [place] [id number] (Wo rk) 12/11/2021 Appointment Sarai Galindo MD [address] [place] [phone] (Wo rk) 12/11/2021 Appointment Sarai Galindo MD [address] [place] [id number] (Wo rk) 12/13/2021 Appointment Sarai Galindo MD [address] [place] [address] (Wo rk) 12/17/2021 Appointment Sarai Galindo MD [address] [place] [phone] (Wo rk) 12/18/2021 Appointment Sarai Galindo MD [address] [place] [phone] (Wo rk) documented as of this encounter Visit Diagnoses Diagnosis Current moderate episode of major depres sive disorder without prior episode (H) - Primary documented in this encounter Additional Health Concerns Assessment Noted Time PHQ-9 Depression Total Score: 14 09/30/2021 8:52 AM CD T documented as of this encounter Care Teams Business Account Executive Relationship Specialty Start Date End Date [facility] Medical PCP - General 09/21/21 [id number] [address] [place], [place] [phone] Sada Cagle [facility] 09/21/21 [address] [id number] documented as of this encounter
--- OUTSIDE RECORDS SUMMARY | 2021-12-07 20:38 | XMS_ITS | Encounter Summary ---
:1980 Author Organization [facility] Address formerly [facility] [address] Care Team Providers Name Role Phone [facility] Primary Care Provider [phone] Sada Cagle Unavailable [phone] Encounter Details Date Type Department Care Team Description 11/26/2021 Hospital Encounter [facility] [address] [place], [place] [address] [address] [place], [place] [phone] (Work) [phone] Social History Tobacco Use Types Packs/Day Years [...] UT) tablet documented as of this encounter Plan of Treatment Upcoming Encounters Date Type Specialty Care Team Description 12/10/2021 Appointment Behavioral Health Sarai Weaver MD [address] [place], [place] [phone] (Wo rk) 12/11/2021 Appointment Sarai Galindo MD [address] [place], [place] [address] (Wo rk) 12/11/2021 Appointment Sarai Galindo MD [address] [place], [place] [address] (Wo rk) 12/13/2021 Appointment Sarai Galindo MD [address] [place], [place] [address]84 (Wo rk) 12/17/2021 Appointment Sarai Galindo MD [address] [place], [place] [address]694 (Wo rk) 12/18/2021 Appointment Sarai Galindo MD [address] [place], [place] [address] (Wo rk) documented as of this encounter Visit Diagnoses Not on filedocumented in this encounter Additional Health Concerns Assessment Noted Time PHQ-9 Depression Total Score: 14 09/30/2021 8:52 AM CD T documented as of this encounter Care Teams Parts Remover Relationship Specialty Start Date End Date [facility] Medical PCP - General 09/21/21 [address] [place] [address] Sada Cagle [facility] 09/21/[address] [place] [address] documented as of this encounter
--- OUTSIDE RECORDS SUMMARY | 2021-12-07 20:38 | XMS_ITS | Encounter Summary ---
:1980 Author Organization [facility] Address [address] [place] [address] Care Team Providers Name Role Phone [facility] Primary Care Provider Sada Cagle Unavailable [phone] Encounter Details Date Type Department Care Team Description 11/22/2021 Telephone [facility] Sophie Santiago, [facility] [place] [address] [place] [address] [place] [address] [phone] Social History Tobacco Use Types Packs/Day Years Used Date Current Every Day Smoker Alcohol Use Standard Drinks/Week Comments Yes 0 (1 standard drink = 0.6 oz pure alcoho l) Sex Assigned at Date Recorded Not on file documented as of this encounter Plan of Treatment Upcoming Encounters Date Type Specialty Care Team Description 12/10/2021 Appointment Behavioral Health Sarai Weaver MD [address] [place], [place] [phone] (Wo rk) 12/11/2021 Appointment Sarai Galindo MD [address] [place] [address] (Wo rk) 12/11/2021 Appointment Sarai Galindo MD [address] [place], [place] [phone] (Wo rk) 12/13/2021 Appointment Behavioral Health Sarai Weaver MD [address] [place], [place] [phone] (Wo rk) 12/17/2021 Appointment Sarai Galindo MD [address] [place], [place] [address] (Wo rk) 12/18/2021 Appointment Sarai Galindo MD [address] [place], [place] [address] (Wo rk) documented as of this encounter Visit Diagnoses Diagnosis Current moderate episode of major depres sive disorder without prior episode (H) - Primary documented in this encounter Additional Health Concerns Assessment Noted Time PHQ-9 Depression Total Score: 14 09/30/2021 8:52 AM CD T documented as of this encounter Care Teams Sociocultural Anthropology Professor Relationship Specialty Start Date End Date [facility] Medical PCP - General 09/21/21 [address] [place] [address] Sada Cagle [facility] 09/21/21 [address] [address] [address] documented as of this encounter
--- OUTSIDE RECORDS SUMMARY | 2021-12-07 20:38 | XMS_ITS | Encounter Summary ---
:1980 Author Organization [facility] Address [address] [place] [address] Care Team Providers Name Role Phone [facility] Primary Care Provider [phone] Sada Cagle Unavailable [phone] Reason for Visit Mental Health Outpatient (Routine) - Pending Review Specialty Diagnoses / Procedures Referred By Contact Refer red To Contact Behavioral Health Procedures Ur Adult Mh Partial Ur Adult Mh Day Tx MH IOP (6A) [facility] [address], [address] [place], [place] [address] [address] [place], [place] Phone: [phone] Referral ID Status Reason Start Date Expiration Date Visits V isits Requested Authorized [id number] Pending 10/16/2021 10/16/2022 36 23 Review Encounter Details Date Type Department Care Team Description 12/03/2021 Hospital Encounter [facility] Demarco Weaver [facility] & MD Omar episode of major Addiction Services [address] depressive disorder [address] without prior episode [address] [place], (H) (Primary Dx) [facility] [id number] Social History Tobacco Use Types Packs/Day Years Used Date Current Every Day Smoker Alcohol Use Standard Drinks/Week Comments Yes 0 (1 standard drink = 0.6 oz pure alcoho l) Sex Assigned at Date Recorded Not on file documented as of this encounter Miscellaneous Notes Group Note - Roby Tejada LMFT - 12/03/2021 9:20 PM CDT Psychotherapy Group Note PATIENT'S NAME: Augustus Ramirez Jr. : 1980 ACCT. NUMBER: [id number] DATE OF SERVICE: 12/03/21 START TIME: 11:00 AM END TIME: 11:50 AM MEMS DEVICE SCIENTIST: Roby Tejada LMFT TOPIC: EBP Group: Emotions Management [facility] Adult Mental Health Day Treatment TRACK: 6A NUMBER OF PARTICIPANTS: 2 Summary of Group / Topics Discussed: Emotions Management: Check Facts: Patients participated in an interactive approach to identifying and challenging cognitive distortions that arise following an event that triggers intense emotion. Patients choose an emotional reaction/event to work on. The group shared their experiences and thought pro cesses for feedback. Patient Session Goals / Objectives: ?? Learn the process of identifying thoughts associated with the situation and reaction ?? Learn to challenge cognitive distortions and reframe the situation/event/reaction ?? Distinguish between facts, feelings, thoughts ?? Gain understanding of how to interpret an emotional reaction ?? Practice identification of cognitive distortions and evaluating an emotionally charged situation more rationally/objectively/mindfully Service Modality: Video Visit Telemedicine Visit: The [...] / provided feedback with other participants. Francisco talked about working to understand how his emotional needs show up in physical reactions in hisbody. Demonstrated understanding of topics discussed through group discussion and participation, Expressedunderstanding of the relevance / importance of emotions management skills at distressing times in life, Self-aware of experiences with difficult emotions, and strategies to employ to manage them, Practiced 2-3 new skills in session and Identified / Expressed personal readiness to practice new emotionsmanagement skills Treatment Plan: Patient has a current master individualized treatment plan. See [facility] treatment plan for more information. DENNIS Peterson Group Note - Sophie Santiago LICSW - 12/03/2021 1:05 PM CDT Psychotherapy Group Note PATIENT'S NAME: Augustus Ramirez Jr. : 1980 ACCT. NUMBER: [id number] DATE OF SERVICE: 12/03/21 START TIME: 10:00 AM END TIME: 10:50 AM MEMS DEVICE SCIENTIST: Sophie Santiago LICSW TOPIC: EBP Group: Emotions Management [facility] Adult Mental Health Day Treatment TRACK: 6A Service Modality: Video Visit Telemedicine Visit: The patient's condition can be safely assessed and treated via synchronous audioand visual telemedicine encounter. Reason for Telemedicine Visit: Services only offered telehealth Originating Site (Patient Location): Patient's home Distant Site (Provider Location): [facility] Consent: The patient/guardian has verbally consented to: [...] regulations related to telemedicine. NUMBER OF PARTICIPANTS: 2 Summary of Group / Topics Discussed: Emotions Management: Opposite to Emotion: Patients discussed past and present struggles with knowinghow to make changes in their lives due to difficult emotional experiences. Explored desires to experience and feel less anger, sadness, guilt, and fear. Reviewed the therapeutic skill of opposite action and patients explored opportunities to use their behaviors as a tool to reduce an emotion that theywant to change. Patient Session Goals / Objectives: ?? Review DBT concepts and focus on patient???s experiences of distress and difficult emotional experiences. ?? Learn how to do the opposite of what an emotion makes us want to do in an effort to decrease an unwanted emotional experience. ?? Demonstrate understanding of the skill of opposite action by sharing experiences where the technique could be useful in past / present situations. Patient Participation / Response: Fully participated with the group by sharing personal reflections / insights and openly received / provided feedback with other participants. Demonstrated understanding of topics discussed through group discussion and participation, Expressedunderstanding of the relevance / importance of emotions management skills at distressing times in life and Identified / Expressed personal readiness to practice new emotions management skills Treatment Plan: Patient has a current master individualized treatment plan. See [facility] treatment plan for more information. ADWOA Self Group Note - Sophie Santiago LICSW - 12/03/2021 12:06 PM CDT Process Group Note PATIENT'S NAME: Augustus Ramirez Jr. : 1980 ACCT. 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 Reason for Telemedicine Visit: Services only offered telehealth Originating Site (Patient Location): Patient's home Distant Site (Provider Location): [facility] Consent: The patient/guardian has verbally consented to: [...] regulations related to telemedicine. NUMBER OF PARTICIPANTS: 2 Data: Session content: At the start of this group, patients were invited to check in by identifying themselves, describing their current emotional status, and identifying issues to address in this group. Area(s) of treatment focus addressed in this session included Symptom Management and Personal Safety. Pt reports feeling anxious, depressed and scared today. He reports an emotional trip to [place] with his mother who has stage 4 cancer. They spent time with pt's brother, which will likely be the last time, that his mother sees his brother. Pt reports feeling increasingly depressed at times and needing to use his safety plan in [place]. He adds It didn't ruin me. Pt identifies using distraction and reaching out to his to cope. Pt describes suicidal ideation at times. He questions why am I here,but denies a suicide plan. He reports a panic attack yesterday, before he was going to take his mother to chemo. He was able to get grounded by taking his dog for a walk. Pt is looking forward to appointment with his individual therapist this week, but is anxious about this too. He states I need to dig into some stuff. I don't want to feel this way anymore. Pt identifies benefiting from IOP and states I am slowly getting out of that dark place, that I was in before my suicide attempt. Pt sets goal to stay in the moment. Denies safety concerns and plans to return to group tomorrow. Therapeutic Interventions/Treatment Strategies: Psychotherapist offered support, feedback and validation and reinforced use of skills. Treatment modalities used include Cognitive Behavioral Therapy. Interventions include Coping Skills: Discussed useof self-soothe skills to decrease distress in the body, Assisted patient in identifying 1-2 healthy d istraction skills to reduce overall distress, Reviewed patients current calming practices and discussed a more formal way of practicing and accessing skills and Assisted patient in understanding the purpose of planning / creating / participating / sharing in positive experiences, Symptoms Management: Promoted understanding of their diagnoses and how it impacts their functioning and Other: Discussed ways to increase hopefulness. Assessment: Patient response: Patient responded to session by accepting feedback, giving feedback, listening, focusing on goals, being attentive and accepting support Possible barriers to participation / learning include: and no barriers identified Health Issues: None reported Substance Use Review: Substance Use: alcohol and cannabis . and Last use: yesterday Mental Status/Behavioral Observations Appearance: Appropriate Eye Contact: Good Psychomotor Behavior: Normal Attitude: Cooperative Orientation: All Speech Rate / Production: Normal Volume: Normal Mood: Anxious Depressed Fearful Agitated Affect: Worrisome Thought Content: Rumination Thought Form: Coherent Obsessive Insight: Good Plan: ??? Safety Plan: No current safety [...] identified in their treatment plan. ADWOA Self December 03, 2021 documented in this encounter Plan of Treatment Upcoming Encounters Date Type Specialty Care Team Description 12/10/2021 [place] [address] [place] [phone] (James wan) 12/11/2021 Appointment Sarai Galindo MD [address], [place] [address] (James rk) 12/11/2021 Appointment Sarai Galindo MD [address], [place] [address]64 (James wan) 12/13/2021 Appointment Sarai Galindo MD [address] [place] [address] (James wan) 12/17/2021 Appointment Sarai Galindo MD [address] [place] [address] (Wo rk) 12/18/2021 Appointment Behavioral Health Sarai Weaver MD [address] [place] [address] (Wo rk) documented as of this encounter Visit Diagnoses Diagnosis Current moderate episode of major depres sive disorder without prior episode (H) - Primary documented in this encounter Additional Health Concerns Assessment Noted Time PHQ-9 Depression Total Score: 14 09/30/2021 8:52 AM CD T documented as of this encounter Care Teams Windows Server Support Technician Relationship Specialty Start Date End Date [facility] PCP - General 09/21/21 [id number] [place] [address] S[facility] 09/21/21 [id number] [address] [place] [address] documented as of this encounter
--- OUTSIDE RECORDS SUMMARY | 2021-12-07 20:38 | XMS_ITS | Encounter Summary ---
:1980 Author Organization [facility] Address [address] [place] [address] Care Team Providers Name Role Phone [facility] Primary Care Provider [phone] Sada Cagle Unavailable [phone] Reason for Visit Mental Health Outpatient (Routine) - Pending Review Specialty Diagnoses / Procedures Referred By Contact Refer red To Contact Behavioral Health Procedures Ur Adult Mh Partial Ur Adult Mh Day Tx MH IOP (6A) [facility] [address], [address] [place], [place] [address] [place], [place] Phone: [phone] Referral ID Status Reason Start Date Expiration Date Visits V isits Requested Authorized [id number] Pending 10/16/2021 10/16/2022 36 23 Review Encounter Details Date Type Department Care Team Description 12/06/2021 Hospital Encounter [facility] Demarco Weaver [facility] & MD Omar episode of major Addiction Services [address] depressive disorder [address] without prior episode [address] [place], (H) (Primary Dx) [facility] [id number] Social History Tobacco Use Types Packs/Day Years Used Date Current Every Day Smoker Alcohol Use Standard Drinks/Week Comments Yes 0 (1 standard drink = 0.6 oz pure alcoho l) Sex Assigned at Date Recorded Not on file documented as of this encounter Miscellaneous Notes Group Note - Sophie Santiago LICSW - 12/06/2021 1:56 PM CDT Psychotherapy Group Note PATIENT'S NAME: Augustus Ramierz Jr. : 1980 ACCT. NUMBER: [id number] DATE OF SERVICE: 12/06/21 START TIME: 11:00 AM END TIME: 11:50 AM PRODUCE BUYER: Sophie Santiago LICSW TOPIC: MH EBP Group: Self-Awareness [facility] Adult Mental Health Day Treatment TRACK: 6A Service Modality: Video Visit Telemedicine Visit: The patient's condition can be safely assessed and treated via synchronous audioand visual telemedicine encounter. Reason for Telemedicine Visit: Services only offered telehealth Originating Site (Patient Location): Patient's home Distant Site (Provider Location): [facility] Consent: The [...] 3 Summary of Group / Topics Discussed: Self-Awareness: GLADLY GO:Gratitude/Identifying Progress: Topic focused on assisting patients in identifying freeman concepts in gratitude and acknowledging progress. Patients discussed the benefits of practicing gratitude and its impact on mood improvement, mindfulness, and perspective. Patients worked to increase time spent on recognition and appreciation of what is positive and working in their lives.Patients discussed the concepts and benefits of feeling grateful. The goal is to reduce rumination and negative thinking resulting in increased mindfulness and resilience. Patients specifically discussed how they can practice and problem solve barriers to daily gratitude practice. Patient Session Goals / Objectives: ??? [place] the concept and benefits of gratitude ??? [place] the importance of recognizing accomplishments ??? Identified ways to practice gratitude in daily life ??? Problem solved barriers to practicing gratitude Patient Participation / Response: Fully participated with the group by sharing personal reflections / insights and openly received / provided feedback with other participants. Demonstrated understanding of topics discussed through group discussion and participation, Demonstrated understanding of values, strengths, and challenges to learn about themselves and Practiced skillsin session Treatment Plan: Patient has a current master individualized treatment plan. See [facility] treatment plan for more information. ADWOA Self Group Note - Sophie Santiago LICSW - 12/06/2021 10:54 AM CDT Psychoeducation Group Note PATIENT'S NAME: Augustus Ramirez Jr. : 1980 ACCT. NUMBER: [id number] DATE OF SERVICE: 12/06/21 START TIME: 10:00 AM END TIME: 10:50 AM PRODUCE BUYER: Sophie Santiago LICSW TOPIC: MH Life Skills Group: Lifestyle Balance and Structure [facility] Adult Mental Health Day Treatment TRACK: 6A Service Modality: Video Visit Telemedicine Visit: The patient's condition can be safely assessed and treated via synchronous audioand visual telemedicine encounter. Reason for Telemedicine Visit: Services only offered telehealth Originating Site (Patient Location): Patient's home Distant Site (Provider Location): [facility] Consent: The [...] 3 Summary of Group / Topics Discussed: Lifestyle Balance and Strucure: Time Management: Time for Tips and Tips for Time: Patients were introduced to how effective time management is beneficial to self esteem, relationships with others, lifebalance, and other aspects of daily life. Patients were taught strategies on how to improve time management skills. Patient Session Goals / Objectives: ??? Facilitated the discussion on challenges/barriers and personal situations with time management ??? Identified specific techniques and strategies to improve time management to support mental health recovery ??? Identified a plan to implement strategies into daily life to support improved time management Patient Participation / Response: Fully participated with the group by sharing personal reflections / insights and openly received / provided feedback with other participants. Verbalized understanding of content Treatment Plan: Patient has a current master individualized treatment plan. See [facility] treatment plan for more information. ADWOA Self Group Note - Sophie Santiago LICSW - 12/06/2021 10:52 AM CDT Process Group Note PATIENT'S NAME: Augustus Ramirez Jr. : 1980 ACCT. 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 Reason for Telemedicine Visit: Services only offered telehealth Originating Site (Patient Location): Patient's home Distant Site (Provider Location): [facility] Consent: The [...] Management and Personal Safety. Pt reports feeling depressed, shameful and fearful.He is uncertain about what is bothering him andyesterday, in individual therapy, discussed using hypnosis as a way to explore this He is anxious about needing to return to work in one month. Discussed ways to stay in the moment. Pt feels positive about taking two walks with his dog. He identifies this as a big step and will continue to walk daily.He identifies coping skills as distraction, deep breathing and opposite to emotion. Denies safety concerns. Therapeutic Interventions/Treatment Strategies: Psychotherapist offered support, feedback and validation and reinforced use of skills. Treatment modalities used include Cognitive Behavioral Therapy. Interventions include Behavioral Activation: Explored how behaviors effect mood and interact with thoughts and feelings, Coping Skills: Discussed use of self- soothe skills to decrease distress in the body, Assisted patient in identifying 1-2 healthy distraction skills to reduce overall distress and Discussed how the use of intentional in the moment actions can help reduce distress and Symptoms Management: Promoted understanding of their diagnoses and how it impacts their functioning. Assessment: Patient response: Patient responded to session by accepting feedback, giving feedback, listening, focusing on goals, being attentive and accepting support Possible barriers to participation / learning include: and no barriers identified Health Issues: None reported Substance Use Review: Substance Use: alcohol and cannabis . and Last use: daily Mental Status/Behavioral Observations Appearance: Appropriate Eye Contact: Good Psychomotor Behavior: Normal Attitude: Cooperative Orientation: All Speech Rate / Production: Normal Volume: Normal Mood: Anxious Depressed Fearful Affect: Worrisome Thought Content: Rumination Thought Form: Coherent Insight: Good Plan: ??? Safety Plan: No current safety concerns identified. Recommended that patient call 911 or go to the local ED should there be a change in any of these risk factors. ??? Barriers to treatment: None identified ??? Patient Contracts (see media tab): None ??? Substance Use: Not addressed in session ??? Continue or Discharge: Patient will continue in Adult Day Treatment (ADT) as planned. Patient islikely to benefit from learning and using skills as they work toward the goals identified in their treatment plan. ADWOA Self December 06, 2021 documented in this encounter Plan of Treatment Upcoming Encounters Date Type Specialty Care Team Description 12/10/2021 Appointment Sarai Galindo MD [address] [place] [id number] (Wo rk) 12/11/2021 [place] [address] [place], [place] [address] [place], [place] [address] (Wo rk) 12/11/2021 Appointment Sarai Galindo MD [address] [place], [place] [address] [place], [place] [address] (Wo rk) 12/13/2021 [place] [address] [place], [place] [address] [place], [place] [address] (Wo rk) 12/17/2021 [place] [address] [place] [id number] (Wo rk) 12/18/2021 [place] [address] [place], [place] [address] [place], [place] [address] (Wo rk) documented as of this encounter Visit Diagnoses Diagnosis Current moderate episode of major depres sive disorder without prior episode (H) - Primary documented in this encounter Additional Health Concerns Assessment Noted Time PHQ-9 Depression Total Score: 14 09/30/2021 8:52 AM CD T documented as of this encounter Care Teams Food Beverage Attendant Relationship Specialty Start Date End Date [facility] PCP - General 09/21/21 [address] [place] [address] [facility] 09/21/[address] [place] [address] documented as of this encounter
--- OUTSIDE RECORDS SUMMARY | 2021-12-07 20:38 | XMS_ITS | Clinical Summary ---
:1980 Author Organization [facility] Address [address] [place] [id number] Care Team Providers Name Role Phone [facility] Primary Care Provider [phone] Sada Cagle Unavailable [phone] Allergies Active Allergy Reactions Severity Noted Date Comments No Known Drug Allergies 02/26/2000 Medications Medication Sig Dispensed Refills Start Date End Date Status amphetamine-dextroamphe Take 20 mg by 0 Active tamine (ADDERALL) 20 MG mouth 3 times tablet daily cetirizine (ZYRTEC) 10 Take 10 mg by 0 Active MG tablet mouth daily Ascorbic Acid (VITAMIN Take 500 mg by 0 Active C) 500 MG CAPS mouth daily Vitamin D3 Take 125 mcg by 0 Act zully (CHOLECALCIFEROL) 125 mouth daily MCG (5000 UT) tablet Active Problems Problem Noted Date Current moderate episode of major depressive disorder without prior 10/02/2021 episode Encounters Date Type Specialty Care Team Description 12/06/2021 [facility], Current mo derate Encounter MD Omar episode of anthony r depressive diso rder without prior episode (H) (Primary Dx) 12/05/2021 [facility] Sophie Santiago LICSW 12/04/2021 [facility], Current mo cristopherate Encounter MD Omar episode of anthony r depressive diso rder without prior episode (H) (Primary Dx) 12/03/2021 [facility], Current mo derate Encounter MD Omar episode of anthony r depressive diso rder without prior episode (H) (Primary Dx) 11/29/2021 [facility], Current mo derate Encounter MD Omar episode of anthony r depressive diso rder without prior episode (H) (Primary Dx) 11/27/2021 [facility], Current mo derate Encounter MD Omar episode of anthony r depressive diso rder without prior episode (H) (Primary Dx) 11/26/2021 [facility], No Show Encounter MD Omar 11/22/2021 [facility], Current mo derate Encounter MD Omar episode of anthony r depressive diso rder without prior episode (H) (Primary Dx) [facility] 11/20/2021 [facility], Current mo derate Encounter MD Omar episode of anthony r depressive diso rder without prior episode (H) (Primary Dx) 11/19/2021 [facility], Current mo derate Encounter MD Omar episode of anthony r depressive diso rder without prior episode (H) (Primary Dx) 11/15/2021 [facility], Current mo derate Encounter MD Omar episode of anthony r depressive diso rder without prior episode (H) (Primary Dx) 11/13/2021 [facility], Current mo derate Encounter MD Omar episode of anthony r depressive diso rder without prior episode (H) (Primary Dx) 11/13/2021 [facility], Current mo derate Encounter MD Omar episode of anthony r depressive diso rder without prior episode (H) (Primary Dx) 11/12/2021 [facility], Encounter MD Omar 11/08/2021 [facility], Encounter MD Omar 11/06/2021 [facility], Current mo derate Encounter MD Omar episode of anthony r depressive diso rder without prior episode (H) (Primary Dx) 11/05/2021 [facility], Encounter MD Omar 11/01/2021 [facility], Current mo derate Encounter MD Omar episode of anthony r depressive diso rder without prior episode (H) (Primary Dx) 10/30/2021 [facility], Current mo derate Encounter MD Omar episode of anthony r depressive diso rder without prior episode (H) (Primary Dx) 10/29/2021 [facility], Current mo thalia Encounter MD Omar episode of anthony r depressive diso rder without prior episode (H) (Primary Dx) 10/25/2021 [facility], Current mo derreggie Encounter MD Omar episode of anthony r depressive diso rder without prior episode (H) (Primary Dx) 10/23/2021 [facility], Current mo thalia Encounter MD Omar episode of anthony r depressive diso rder without prior episode (H) (Primary Dx) 10/22/2021 [facility], Current mo derate Encounter MD Omar episode of anthony r depressive diso rder without prior episode (H) (Primary Dx) 10/18/2021 [facility], Current mo derreggie Encounter MD Omar episode of anthony r depressive diso rder without prior episode (H) (Primary Dx) 10/16/2021 [facility], Current mo derreggie Encounter MD Omar episode of anthony r depressive diso rder without prior episode (H) (Primary Dx) 10/16/2021 [facility], Current mo derreggie Encounter MD Omar episode of anthony r depressive diso rder without prior episode (H) (Primary Dx) 10/15/2021 [facility], Current mo thalia Encounter MD Omar episode of anthony r depressive diso rder without prior episode (H) (Primary Dx) 10/14/2021 [facility], Current mo thalia Encounter MD Omar episode of anthony r depressive diso rder without prior episode (H) (Primary Dx) 10/14/2021 [facility] Belkis Leonard RN 10/11/2021 [facility], Current katerina Nelson MD episode of anthony r depressive diso rder without prior episode (H) (Primary Dx) 10/10/2021 [facility], Current katerina Nelson MD episode of anthony r depressive diso rder without prior episode (H) (Primary Dx) 10/10/2021 [facility], Current kateirna Nelson MD episode of anthony r depressive diso rder without prior episode (H) (Primary Dx) 10/09/2021 [facility], Current mo derate Encounter MD Omar episode of anthony r depressive diso rder without prior episode (H) (Primary Dx) 10/09/2021 [facility] Belkis Leonard, BRINA 10/08/2021 [facility], Current mo derate Encounter MD Omar episode of anthony r depressive diso rder without prior episode (H) (Primary Dx) 10/07/2021 [facility], Current mo derate Encounter MD Omar episode of anthony r depressive diso rder without prior episode (H) (Primary Dx) 10/04/2021 [facility], Current mo derate Encounter MD Omar episode of anthony r depressive diso rder without prior episode (H) (Primary Dx) 10/03/2021 [facility], Current mo derate Encounter MD Omar episode of anthony r depressive diso rder without prior episode (H) (Primary Dx) 10/02/2021 [facility], Current se yamilet Encounter MD Omar episode of anthony r depressive diso rder without psychot ic features withou t prior episode ( H) (Primary Dx) 10/02/2021 [facility], Encounter MD Omar 10/02/2021 [facility] Belkis Leonard, BRINA 10/01/2021 [facility] Belkis Leonard, BRINA 09/30/2021 BEH Treatment [facility], MDD (anthony r Plan MD Omar depressive McNall, Sophie, disorder) ( 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) 09/30/2021 Telephone Generic, Behavioral Intake, 09/23/2021 Telephone Generic, MH/CD Inpatient Behavioral Intake, 09/22/2021 Telephone Generic, MH/CD Inpatient Behavioral Intake, 09/22/2021 Telephone Generic, MH/CD Inpatient Behavioral Intake, 09/21/2021 - Emergency EMERGENCY MEDICINE Darien Vargas Suicida l ideation 09/23/2021 MD Yazan Espino, MD Parvez Leonard, MD Summer Altamirano, MD Margot Julio, MD Brook Cowart, Joni Ray, MD MartinOmar tomlinson MD 09/21/2021 Telephone GenericBehavioral Elin MD 09/21/2021 Travel from Last 3 Months Social History Tobacco Use Types Packs/Day Years Used Date Current Every Day Smoker Alcohol Use Standard Drinks/Week Comments Yes 0 (1 standard drink = 0.6 oz pure alcoho l) Sex Assigned at Date Recorded Not on file Last Filed Vital Signs Vital Sign Reading Time Taken Comments Blood Pressure 113/74 09/23/2021 12:16 PM CDT Pulse 75 09/23/2021 12:16 PM CDT Temperature 36.8 ??C (98.2 ??F) 09/22/2021 7:46 AM CDT Respiratory Rate 18 09/23/2021 12:16 PM CDT Oxygen Saturation 99% 09/23/2021 12:16 PM CDT Inhaled Oxygen Concentration - - Weight 81.6 kg (180 lb) 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 Height - - Body Mass Index - - Plan of Treatment Upcoming Encounters Date Type Specialty Care Team Description 12/10/2021 Appointment Sarai Galindo MD [address] [place] [address] [phone] (Wo rk) 12/11/2021 Appointment Sarai Galindo MD [address] [place] [address] [phone] (Wo rk) 12/11/2021 [place] [address] [place] [address] [phone] (Wo rk) 12/13/2021 [place] [address] [place] [address] [phone] (Wo rk) 12/17/2021 [place] [address] [place] [address] [phone] (Wo rk) 12/18/2021 Appointment Sarai Galindo MD [address] [place] [phone] (Wo rk) Health Maintenance Due Date Last Done Comments ADVANCE CARE PLANNING 1980 ANNUAL REVIEW OF HM ORDERS 1980 DEPRESSION ACTION PLAN 1980 PREVENTIVE CARE VISIT 1980 COVID-19 Vaccine (#1) 1980 Pneumococcal Vaccine: 1986 Pediatrics (0 to 5 Years) and At-Risk Patients (6 to 64 Years) (1 - PCV) HIV SCREENING 1995 HEPATITIS C SCREENING 1998 LIPID 2015 DTAP/TDAP/TD IMMUNIZATION (4 07/07/2021 07/08/2011, - Td or Tdap) 04/30/2000, 01/05/1996 INFLUENZA VACCINE (#1) 2021 12/04/2007, 12/04/2007 PHQ-9 04/02/2022 09/30/2021 HEPATITIS B IMMUNIZATION Aged Out No long er eligible based on patient's age to complete this to pic IPV IMMUNIZATION Aged Out No longer eligi ble based on patient's age to complete this to pic MENINGITIS IMMUNIZATION Aged Out No longe r eligible based on patient's age to complete this to pic Procedures Procedure Name Priority Date/Time Associated Comments Diagnosis CBC WITH PLATELETS & STAT 09/23/2021 10:07 Res ults for this DIFFERENTIAL AM CDT procedure are i n the results section. CBC WITH PLATELETS AND STAT 09/23/2021 10:07 R esults for this DIFFERENTIAL AM CDT procedure are i n the results section. ETHYL ALCOHOL LEVEL STAT 09/23/2021 10:07 Resu lts for this AM CDT procedure are i n the results section. COMPREHENSIVE STAT 09/23/2021 10:07 Results fo r this METABOLIC PANEL AM CDT procedure ar e in the results section. URINE DRUGS OF ABUSE STAT 09/21/2021 6:20 PM R esults for this SCREEN CDT procedure are i n the results section. DRUG ABUSE SCREEN 1 STAT 09/21/2021 6:20 PM Re sults for this URINE (ED) CDT procedure are i n the results section. COVID-19 VIRUS STAT 09/21/2021 12:49 Results f or this (CORONAVIRUS) BY PCR PM CDT procedu re are in the results section. from Last 3 Months Results (ABNORMAL) CBC with platelets and differential (09/23/2021 10:07 AM CDT) [facility] Method Time Signature WBC Count 8.2 4.0 - 09/23/2021 [facility] 11.0 10:16 AM CDT 10e3/uL RBC Count 5.88 4.40 - 09/23/2021 [facility] 5.90 10:16 AM CDT 10e6/uL Hemoglobin 17.8 (H) 13.3 - 09/23/2021 [facility] 17.7 g/dL 10:16 AM CDT Hematocrit 51.4 40.0 - 09/23/2021 [facility] 53.0 % 10:16 AM CDT MCV 87 78 - 100 09/23/2021 [facility] fL 10:16 AM CDT MCH 30.3 26.5 - 09/23/2021 [facility] 33.0 pg 10:16 AM CDT MCHC 34.6 31.5 - 09/23/2021 [facility] 36.5 g/dL 10:16 AM CDT RDW 12.4 10.0 - 09/23/2021 [facility] 15.0 % 10:16 AM CDT Platelet Count 325 150 - 450 09/23/2021 [facility] 10e3/uL 10:16 AM CDT % Neutrophils 73 % 09/23/2021 [facility] 10:16 AM CDT % Lymphocytes 17 % 09/23/2021 [facility] 10:16 AM CDT % Monocytes 9 % 09/23/2021 [facility] 10:16 AM CDT % Eosinophils 1 % 09/23/2021 [facility] 10:16 AM CDT % Basophils 0 % 09/23/2021 [facility] 10:16 AM CDT % Immature 0 % 09/23/2021 [facility] Granulocytes 10:16 AM CDT NRBCs per 100 0 <1 /100 09/23/2021 [facility] WBC 10:16 AM CDT Absolute 5.9 1.6 - 8.3 09/23/2021 [facility] Neutrophils 10e3/uL 10:16 AM CDT Absolute 1.4 0.8 - 5.3 09/23/2021 [facility] Lymphocytes 10e3/uL 10:16 AM CDT Absolute 0.7 0.0 - 1.3 09/23/2021 [facility] Monocytes 10e3/uL 10:16 AM CDT Absolute 0.1 0.0 - 0.7 09/23/2021 [facility] Eosinophils 10e3/uL 10:16 AM CDT Absolute 0.0 0.0 - 0.2 09/23/2021 [facility] Basophils 10e3/uL 10:16 AM CDT Absolute 0.0 <=0.4 09/23/2021 [facility] Immature 10e3/uL 10:16 AM CDT Granulocytes Absolute NRBCs 0.0 10e3/uL 09/23/2021 [facility] 10:16 AM CDT Specimen Anatomical Collection Method / Collection Time Recei joaquim Time (Source) Location / Volume Laterality Blood STRUCTURE OF LEFT Venipuncture / 09/23/2021 10:07 08/31 UPPER LIMB / Unknown AM CDT 10:11 AM CDT Unknown Omar Martin MD LAB - BLOOD ORD ERABLES Performing Organization Address City/State/ZIP Code [place] [address] [facility] [address] Lab (1st floor, no room number) (ABNORMAL) Comprehensive metabolic panel (09/23/2021 10:07 AM CDT) [facility] Method Time Signature Sodium 136 133 - 144 09/23/2021 LABORATORY mmol/L 10:41 AM CDT Potassium 4.8 3.4 - 5.3 09/23/2021 LAB[facility]ATORY mmol/L 10:41 AM CDT Chloride 105 94 - 109 09/23/2021 [facility] mmol/L 10:41 AM CDT Carbon Dioxide 28 20 - 32 09/23/2021 LAB[facility]ORY (CO2) mmol/L 10:41 AM CDT Anion Gap 3 3 - 14 09/23/2021 [facility] mmol/L 10:41 AM CDT Urea Nitrogen 18 7 - 30 09/23/2021 LAB[facility]ATORY mg/dL 10:41 AM CDT Creatinine 1.07 0.66 - 09/23/2021 [facility] 1.25 mg/dL 10:41 AM CDT Calcium 9.5 8.5 - 10.1 09/23/2021 [facility] mg/dL 10:41 AM CDT Glucose 116 (H) 70 - 99 09/23/2021 [facility]ORY mg/dL 10:41 AM CDT Alkaline 81 40 - 150 09/23/2021 [facility]ORY Phosphatase U/L 10:41 AM CDT AST 11 0 - 45 U/L 09/23/2021 [facility] 10:41 AM CDT ALT 22 0 - 70 U/L 09/23/2021 [facility] 10:41 AM CDT Protein Total 7.4 6.8 - 8.8 09/23/2021 [facility] g/dL 10:41 AM CDT Albumin 4.1 3.4 - 5.0 09/23/2021 [facility] g/dL 10:41 AM CDT Bilirubin Total 1.1 0.2 - 1.3 09/23/2021 [facility] mg/dL 10:41 AM CDT GFR Estimate 89 >60 09/23/2021 [facility]ORY mL/min/1.7 10:41 AM CDT 3m2 Comment: Effective February 19, 2021 eGF Rcr in adults is calculated using the 2020 CKD-EPI creatinine equation which includ es age and gender (Nitesh et al., NEJM, DOI: 10.1056/TAMNja1114381) Specimen Anatomical Collection Method / Collection Time Recei joaquim Time (Source) Location / Volume Laterality Blood STRUCTURE OF LEFT Venipuncture / 09/23/2021 10:07 08/31 UPPER LIMB / Unknown AM CDT 10:11 AM CDT Unknown Omar Martin MD LAB - BLOOD ORD ERABLES Performing Organization Address City/State/ZIP Code [place] [phone] Care [facility] [address] Lab (1st floor, no room number) Ethyl Alcohol Level (09/23/2021 10:07 AM CDT) P athologist Signature Alcohol ethyl <0.01 <=0.01 g/dL 09/23/2021 [facility] 10:41 AM CDT Specimen Anatomical Collection Method / Collection Time Recei joaquim Time (Source) Location / Volume Laterality Blood STRUCTURE OF LEFT Venipuncture / 09/23/2021 10:07 08/31 UPPER LIMB / Unknown AM CDT 10:11 AM CDT Unknown Omar Martin MD LAB - BLOOD ORD ERABLES Performing Organization Address City/[facility]/[place] [phone] Care [facility] [address] Lab (1st floor, no room number) (ABNORMAL) Drug abuse screen 1 urine (ED) (09/21/2021 6:20 PM CDT) [facility] Method Time Signature Amphetamines Screen Screen 09/21/2021 LABORATORY Urine Positive Negative 6:54 PM CDT (A) Comment: Cutoff for a positive amphetamine is gre ater than 500 ng/mL. This is an unconfirmed screening result to be used for medical purposes only. Barbiturates Urine Screen Negative Screen Negative 6:54 LABORATORY PM CDT Comment: Cutoff for a negative barbitura te is 200 ng/mL or less. Benzodiazepines Urine Screen Negative Screen 09/21/2021 6 :54 LABORATORY Negative PM CDT Comment: Cutoff for a negative benzodiaz epine is 200 ng/mL or less. Cannabinoids Urine Screen Positive Screen Negative 6:54 LABORATORY (A) PM CDT Comment: Cutoff for a positive cannabinoid is gre ater than 50 ng/mL. This is an unconfirmed screening result to be used for medical purposes only. Cocaine Urine Screen Negative Screen Negative 09/21/2021 6:5 4 PM LABORATORY CDT Comment: Cutoff for a negative cocaine i s 300 ng/mL or less. Opiates Urine Screen Negative Screen Negative 09/21/2021 6:5 4 PM LABORATORY CDT Comment: Cutoff for a negative opiate is 300 ng/mL or less. Specimen Anatomical Collection Method Collection Time Receive d Time (Source) Location / / Volume Laterality Urine URINE SPECIMEN Non-blood 09/21/2021 6:20 PM 6:29 OBTAINED BY CLEAN Collection / CDT PM CDT CATCH PROCEDURE / Unknown Unknown Darien Vargas MD LAB - URINE ORDERABLES Performing Organization Address City/[facility]/[place] [phone] Care [facility] [address] Lab (1st floor, no room number) Asymptomatic COVID-19 Virus (Coronavirus) by PCR Nasopharyngeal (09/21/2021 12:49 PM CDT) Analysis Performed At Patho logist Time Signature SARS CoV2 PCR Negative Negative 09/21/2021 LABORATORY 1:35 PM CDT Comment: NEGATIVE: SARS-CoV-2 (COVID-19) RNA not detected, presumed negative. Specimen Anatomical Location / Collection Method Collection Malcom e Received Time (Source) Laterality / Volume Swab NASOPHARYNGEAL Non-blood 09/21/2021 12:49 STRUCTURE / Unknown Collection / PM CDT 12:56 PM CDT Unknown Narrative [facility] - 09/21/2021 1:35 PM CDT Testing was performed using the Xpert Xpress SARS-CoV-2 Assay on the [employer] Instrument Systems. A dditional information about this Emergency Use Authorization (EUA) a ssay can be found via the Lab Guide. This test should be ordered for t he detection of SARS-CoV-2 in individuals who meet SARS-CoV-2 clinical and/or epidemiological criteria. Test performance is unknown in asymptomatic patients. This test is for in vitro diagnostic use unde r the FDA EUA for laboratories certified under CLIA to per form high complexity testing. This test has not been FDA cleared or ap proved. A negative result does not rule out the presence of PCR in hibitors in the specimen or target RNA in concentration below the li chong of detection for the assay. The possibility of a false negati ve should be considered if the patient's recent exposure or clinica l presentation suggests COVID-19. This test was validated by the [facility]. This laboratory is certified under the Clinical Laboratory Improvement Amendments of 1988 (CLIA-88) as qualified to perform high complexity laboratory testing. Darien Vargas MD LAB - MICRO GENERAL ORDERABL ES Performing Organization Address City/State/ZIP Code [place] [phone] [facility] [address] Lab (1st floor, no room number) from Last 3 Months Insurance Payer Benefit Plan / Subscriber ID Effective Phone Address T ype Group Dates [facility] [id number] 2021-Prese [phone] [address] [facility] [address] [place] [address] [facility] [id number] 2021-Prese [address] [place] [address] [phone] [address] 2 (Home) [place] [id number] [address] [facility] 1980 [phone] arte[address] Jr[address] (Home) [place] [id number] Care Teams Medical Field Representative Relationship Specialty Start Date End Date [facility] PCP - General 09/21/21 [id number] [place], [place] [phone] [facility] 09/21/21 [address] [address] [place] [phone]
--- OUTSIDE RECORDS SUMMARY | 2021-12-07 20:38 | XMS_ITS | Encounter Summary ---
:1980 Author Organization [facility] Address [address] [place] [address] Care Team Providers Name Role Phone [facility] Primary Care Provider [phone] Sada Cagle Unavailable [phone] Encounter Details Date Type Department Care Team Description 11/27/[address] [facility] Demarco [facility] MD Omar episode of major Addiction Services [address] depressive disorder [address] without prior episode [id number] [place], (H) (Primary Dx) [facility] [id number] Social History Tobacco Use Types Packs/Day [...] 12/10/2021 Appointment Behavioral Health Sarai Weaver MD [address] [place] [address] (Wo rk) 12/11/2021 Appointment Sarai Galindo MD [facility] [place] [address] [place] [address] (Wo rk) 12/11/2021 Appointment Sarai Galindo MD [address] [place] [address] [phone] (Wo rk) 12/13/2021 Appointment Sarai Galindo MD [address] [place] [address] [phone] (Wo rk) 12/17/2021 Appointment Sarai Galindo MD [address] [place] [address] [phone] (Wo rk) 12/18/2021 Appointment Sarai Galindo MD [address] [place] [address] [phone] (Wo rk) documented as of this encounter Visit Diagnoses Diagnosis Current moderate episode of major depres sive disorder without prior episode (H) - Primary documented in this encounter Additional Health Concerns Assessment Noted Time PHQ-9 Depression Total Score: 14 09/30/2021 8:52 AM CD T documented as of this encounter Care Teams Field Radio Technician Relationship Specialty Start Date End Date [facility] Medical PCP - General 09/21/21 [address] [place] [address] [facility] 09/21/21 [address] [place] [id number] documented as of this encounter
--- OUTSIDE RECORDS SUMMARY | 2021-12-07 20:38 | XMS_ITS | Encounter Summary ---
:1980 Author Organization [place] Address [address] [place] [address] Care Team Providers Name Role Phone [facility] Primary Care Provider [phone] Sada Cagle Unavailable [phone] Reason for Visit Mental Health Outpatient (Routine) - Pending Review Specialty Diagnoses / Procedures Referred By Contact Refer red To Contact Behavioral Health Procedures Ur Adult Mh Partial Ur Adult Mh Day Tx MH IOP (6A) [facility] [address], [place], [place] [address] [address] [place], [place] Phone: [phone] Referral ID Status Reason Start Date Expiration Date Visits V isits Requested Authorized [id number] Pending 10/16/2021 10/16/2022 36 23 Review Encounter Details Date Type Department Care Team Description 11/20/[address] [facility] Demarco [facility] Omar episode of major Addiction Services [address] depressive disorder [address] without prior episode [address] [place], (H) (Primary Dx) [facility] [phone] Social History Tobacco Use Types Packs/Day [...] Group Note - Roby Tejada LMFT - 11/20/2021 9:25 PM CDT Psychotherapy Group Note PATIENT'S NAME: Augustus Ramirez Jr. : 1980 AC[employer]. NUMBER: [id number] DATE OF SERVICE: 11/20/21 START TIME: 11:00 AM END TIME: 11:50 AM EMPLOYEE DEVELOPMENT MANAGER: Roby Tejada LMFT TOPIC: EBP Group: Coping Skills [facility] Adult Mental Health Day Treatment TRACK: 6A NUMBER OF PARTICIPANTS: 4 Summary of Group / Topics Discussed: Coping Skills: Alternatives to Depression: Patients watched the NASIM Talk: This could be why you're depressed or anxious by Qasim Lyn, and discussed understanding Alternative treatments to depression.Patients explored addressing underlying needs, and related barriers, to reducing depression. Patient Session Goals / Objectives: ?? Understand the purpose and benefits of socializing, and building social connections to reduce depression Service Modality: Video Visit Telemedicine Visit: The [...] a current master individualized treatment plan. See [facility] treatment plan for more information. [facility] Group Note - Roby Tejada LMFT - 11/20/2021 9:07 PM CDT Psychotherapy Group Note PATIENT'S NAME: Augustus Ramirez Jr. : 1980 ACCT. NUMBER: [id number] DATE OF SERVICE: 11/20/21 START TIME: 10:00 AM END TIME: 10:50 AM EMPLOYEE DEVELOPMENT MANAGER: Roby Tejada LMFT TOPIC: MH EBP Group: Specialty Awareness [facility] Adult Mental Health Day Treatment TRACK: 6A NUMBER OF PARTICIPANTS: 4 Summary of Group / Topics Discussed: Specialty Topics: Grief/Transitions: Patients received an overview of the grief process. Patients explored their relationship to loss and how that has affected their mental health symptoms. Strategies for recognizing loss and ideas for engaging in the grief process was presented and discussed. Patients identified needs for support and coping skills to manage loss. The purpose of this specialty topic is to help patients identify the aspects of change due to loss that individuals experience in addition to mental health symptoms to better cope with the grief, loss, and life transitions. Patient Session Goals / Objectives: ??? Identified grief, loss, and life transitions ??? Discussed how grief impacts mental health symptoms and disrupts usual functioning ??? Identified needs for support and coping with grief and planned further action for coping Service Modality: Video Visit Telemedicine Visit: The [...] topics discussed through group discussion and participation, Identified / Expressed readiness to act on skill suggestions discussed in topic, Verbalized understanding of ways to proactively manage illness and Practiced skills in session Treatment Plan: Patient has a current master individualized treatment plan. See [facility] treatment plan for more information. [facility] Group Note - Sophie Santiago LICSW - 11/20/2021 11:21 AM CDT Process Group Note PATIENT'S NAME: Augustus Ramirez Jr. : 1980 ACCT. 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 Adult Mental Health Day Treatment TRACK: 6A Telemedicine Visit: The patient's condition can be safely assessed and treated via synchronous audioand visual telemedicine encounter. Reason for Telemedicine Visit: Services only offered telehealth Originating Site (Patient Location): Patient's home Distant Site (Provider Location): [facility]: [facility] [place] Consent: The patient/guardian has verbally consented to: the potential risks and benefits of telemedicine (video visit) versus in person care; bill my insurance or make self-payment for services provided; and responsibility for payment of non-covered services. Mode of Communication: Video Conference via zoom As the provider I attest to compliance with applicable laws and regulations related to telemedicine. NUMBER OF PARTICIPANTS: 4 Data: Session content: At the start of this group, patients were invited to check in by identifying themselves, describing their current emotional status, and identifying issues to address in this group. Area(s) of treatment focus addressed in this session included Symptom Management and Personal Safety. Pt reports feeling anxious, depressed, shameful and scared. He is worried about returning to individual therapy tomorrow, because he knows they will dig a little deeper, but is certain that he needs that to recover. Pt states that depression was affecting his job. He continues to struggle with agoraphobia. He sets a goal to go to [place] today and will bring his service dog with him, if needed. Ptalso identifies video games as a self-care skill. He felt positive about receiving text from daughter yesterday. Denies safety concerns. Therapeutic Interventions/Treatment Strategies: Psychotherapist offered support, feedback and validation and reinforced use of skills. Treatment modalities used include Cognitive Behavioral Therapy. Interventions include Behavioral Activation: Explored how behaviors effect mood and interact with thoughts and feelings, Coping Skills: Discussed use of self- soothe skills to decrease distress in the body and Symptoms Management: Promoted understandingof their diagnoses and how it impacts their functioning. Assessment: Patient response: Patient responded to session by accepting feedback, giving feedback, listening, focusing on goals, being attentive and accepting support Possible barriers to participation / learning include: and no barriers identified Health Issues: None reported Substance Use Review: Substance Use: alcohol and cannabis . Mental Status/Behavioral Observations Appearance: Appropriate Eye Contact: [...] in their treatment plan. ADWOA Self November 20, 2021 documented in this encounter Plan of Treatment Upcoming Encounters Date Type Specialty Care Team Description 12/10/2021 Appointment Sarai Galindo MD [address] [place] [address] [phone] (Wo rk) 12/11/2021 Appointment Sarai Galindo MD [address] [place] [address] [phone] (Wo rk) 12/11/2021 Appointment Sarai Galindo MD [address] [place] [address] [phone] (Wo rk) 12/13/2021 [place] [address] [place] [address] [phone] (Wo rk) 12/17/2021 [place] [address] [place] [address] [phone] (Wo rk) 12/18/2021 Appointment Sarai Galindo MD [address] [place] [address] [phone] (Wo rk) documented as of this encounter Visit Diagnoses Diagnosis Current moderate episode of major depres sive disorder without prior episode (H) - Primary documented in this encounter Additional Health Concerns Assessment Noted Time PHQ-9 Depression Total Score: 14 09/30/2021 8:52 AM CD T documented as of this encounter Care Teams Electronics Assembler Relationship Specialty Start Date End Date [facility] PCP - General 09/21/21 [id number] [place], [place] [phone] [facility] 09/21/21 [id number] [address] [place] [phone] documented as of this encounter
--- OUTSIDE RECORDS SUMMARY | 2021-12-07 20:38 | XMS_ITS | Encounter Summary ---
:1980 Author Organization [place] Address [address] [place] [address] Care Team Providers Name Role Phone [facility] Primary Care Provider [phone] Sada Cagle Unavailable [phone] Reason for Visit Mental Health Outpatient (Routine) - Pending Review Specialty Diagnoses / Procedures Referred By Contact Refer red To Contact Behavioral Health Procedures Ur Adult Mh Partial Ur Adult Mh Day Tx MH IOP (6A) [facility] [address], [address] [place], [place] [address] [address] [place], [place] Phone: [phone] Referral ID Status Reason Start Date Expiration Date Visits V isits Requested Authorized [id number] Pending 10/16/2021 10/16/2022 36 23 Review Encounter Details Date Type Department Care Team Description 11/22/2021 Hospital Encounter [facility] Dem[facility] [place] episode of major Addiction Services [address] depressive disorder [address] without prior episode [address] [place], (H) (Primary Dx) [facility] [id number] [phone] Social History Tobacco Use Types Packs/Day [...] Group Note - Sophie Santiago LICSW - 11/22/2021 2:18 PM CDT Psychoeducation Group Note PATIENT'S NAME: Augustus Ramirez Jr. : 1980 ACCT. NUMBER: [id number] DATE OF SERVICE: 11/22/21 START TIME: 11:00 AM END TIME: 11:50 AM QUALITY MEASUREMENT SPECIALIST: Sophie Santiago LICSW TOPIC: MH Wellness Group: Health Maintenance [facility] Adult Mental Health Day Treatment TRACK: 6A Telemedicine Visit: The patient's condition can be safely assessed and treated via synchronous audioand visual telemedicine encounter. Reason for Telemedicine Visit: Services only offered telehealth Originating Site (Patient Location): Patient's home Distant Site (Provider Location): [facility]: [facility] Consent: The patient/guardian has verbally consented to: [...] 5 Summary of Group / Topics Discussed: Health Maintenance: Weekend planning: Patients were given time to complete a weekend plan of what they will do to promote wellness and sobriety over the weekend when they do not have the structure of group. Patients were encouraged to review progress on their treatment goals and were challenged to identify ways to work toward meeting them. Patients identified and discussed foreseeable barriers to success over the weekend and then developed a plan to overcome them. Patients reviewed their distress coping skills and social support network and discussed this with the group. Patient Session Goals / Objectives: ? Identified activities to engage in that promote balance in wellness ? Distinguished possible barriers to success over the weekend and created a plan to overcome them ? Listed distress coping skills and identified social support network to utilize if in crisis duringthe weekend Patient Participation / Response: Fully participated with the group by sharing personal reflections / insights and openly received / provided feedback with other participants. Demonstrated understanding of topics discussed through group discussion and participation and Identified / Expressed personal readiness to practice skills Treatment Plan: Patient has a current master individualized treatment plan. See [facility] treatment plan for more information. ADWOA Self Group Note - Sophie Santiago LICSW - 11/22/2021 2:11 PM CDT Psychotherapy Group Note PATIENT'S NAME: Augustus Ramirez Jr. : 1980 ACCT. NUMBER: [id number] DATE OF SERVICE: 11/22/21 START TIME: 10:00 AM END TIME: 10:50 AM QUALITY MEASUREMENT SPECIALIST: Sophie Santiago LICSW TOPIC: MH EBP Group: Self-Awareness [facility] Adult Mental Health Day Treatment TRACK: 6A Telemedicine Visit: The patient's condition can be safely assessed and treated via synchronous audioand visual telemedicine encounter. Reason for Telemedicine Visit: Services only offered telehealth Originating Site (Patient Location): Patient's home Distant Site (Provider Location): [facility]: [facility] Consent: The patient/guardian has verbally consented to: [...] 5 Summary of Group / Topics Discussed: Self-Awareness: Personal Strengths: Topic focused on assisting patients in identifying personal strengths and how they relate to the management of mental health symptoms. Patients discussed the benefits of acknowledging their personal strengths and their impact on mood improvement, mindfulness, and perspective. Patients worked to increase time spent on recognition and appreciation of what is positiveand working in their lives. The goal is to reduce rumination and negative thinking resulting in increased mindfulness and resilience. Patients will work to put skills into practice and problem-solve barriers. Patient Session Goals / Objectives: ??? Identified personal strengths ??? Discussed Who I am as a Person highlighting strengths ??? Identified barriers to recognition of personal strengths ??? Verbalized understanding of strategies to increase use of their strengths in management of dailysymptoms Patient Participation / Response: Fully participated with [...] Group Note - Sophie Santiago LICSW - 11/22/2021 12:59 PM CDT Process Group Note PATIENT'S NAME: Augustus Ramirez Jr. : 1980 ACCT. 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 Reason for Telemedicine Visit: Services only offered telehealth Originating Site (Patient Location): Patient's home Distant Site (Provider Location): [facility]: [facility] Consent: The patient/guardian has verbally consented to: [...] and Personal Safety. Pt reports feeling depressed, anxious and fearful. He has begun work with individual therapist and is worried about what I will find out when we dig deeper. Therapist will be doing hypnosis with him.Pt is anxious about tomorrow's trip to [place]. He will be taking his mother, who is dying, to visit his brother and this will likely be the last time that they see each other. Pt has not seen his brother in 11 years. He sets a goal to distract himself while they are away and feels family support will be helpful. Pt is grateful for the group and feels that this support is needed. Group members observedthat he is sharing more about himself and taking steps to heal. Pt denies safety concerns. Therapeutic Interventions/Treatment Strategies: Psychotherapist offered support, feedback and validation and reinforced use of skills. Treatment modalities used include Cognitive Behavioral Therapy. Interventions include Cognitive Restructuring: Explored impact of ineffective thoughts / distortions on mood and activity and Assisted patient in identifying new neutral/positive core beliefs and Coping Skills: Discussed use of self- soothe skills to decrease distress in the body, Assisted patient in identifying 1-2 healthy distraction skills to reduceoverall distress, Reviewed patients current calming practices and discussed a more formal way of practicing and accessing skills and Assisted patient in understanding the purpose of planning / creating/ participating / sharing in positive experiences. Assessment: Patient response: Patient responded to session by accepting feedback, giving feedback, listening, focusing on goals, being attentive and accepting support Possible barriers to participation / learning include: and no barriers identified Health Issues: None reported Substance Use Review: Substance Use: alcohol and cannabis . and Last use: my average use last night Mental Status/Behavioral Observations Appearance: Appropriate Eye Contact: Good Psychomotor Behavior: Normal Attitude: Cooperative Orientation: All Speech Rate / Production: Normal Volume: Normal Mood: Anxious Depressed Anhedonia Fearful Affect: Subdued Worrisome Thought Content: Rumination Thought Form: Coherent [...] in their treatment plan. ADWOA Self November 22, 2021 documented in this encounter Plan of Treatment Upcoming Encounters Date Type Specialty Care Team Description 12/10/2021 Appointment Sarai Galindo MD [address] [place] [phone] (Wo rk) 12/11/2021 Appointment Sarai Galindo MD [address] [place] [phone] (Wo rk) 12/11/2021 Appointment Sarai Galindo MD [address] [place] [phone] (Wo rk) 12/13/2021 [place] [address] [place] [phone] (Wo rk) 12/17/2021 [place] [address] [place] [phone] (Wo rk) 12/18/2021 [place] [address] [place] [phone] (Wo rk) documented as of this encounter Visit Diagnoses Diagnosis Current moderate episode of major depres sive disorder without prior episode (H) - Primary documented in this encounter Additional Health Concerns Assessment Noted Time PHQ-9 Depression Total Score: 14 09/30/2021 8:52 AM CD T documented as of this encounter Care Teams Master Barber Relationship Specialty Start Date End Date [facility] PCP - General 09/21/21 [id number] [place] [address] Sada Cagle [facility] 09/21/21 [address] [address] [place] [phone] documented as of this encounter
--- OUTSIDE RECORDS SUMMARY | 2021-12-07 20:38 | XMS_ITS | Encounter Summary ---
:1980 Author Organization [facility] Address [address] [place] [address] Care Team Providers Name Role Phone [facility] Primary Care Provider [phone] Sada Cagle Unavailable [phone] Reason for Visit Mental Health Outpatient (Routine) - Pending Review Specialty Diagnoses / Procedures Referred By Contact Refer red To Contact Behavioral Health Procedures Ur Adult Mh Partial Ur Adult Mh Day Tx MH IOP (6A) [facility] [address], [address] [place], [place] [address] [address] [place], [place] Phone: [phone] Referral ID Status Reason Start Date Expiration Date Visits V isits Requested Authorized [id number] Pending 10/16/2021 10/16/2022 36 23 Review Encounter Details Date Type Department Care Team Description 12/04/2021 Hospital Encounter [facility] Demarco Weaver formerly [facility] & MD Omar episode of major Addiction Services [address] depressive disorder [address] without prior episode [address] [place], (H) (Primary Dx) [facility] [id number] [phone] Social History Tobacco Use Types Packs/Day Years Used Date Current Every Day Smoker Alcohol Use Standard Drinks/Week Comments Yes 0 (1 standard drink = 0.6 oz pure alcoho l) Sex Assigned at Date Recorded Not on file documented as of this encounter Miscellaneous Notes Addendum Note - Roby Tejada LMFT - 12/05/2021 10:50 PM CDT Encounter addended by: Roby Tejada LMFT on: 12/05/2021 10:50 PM Actions taken: Clinical Note Signed Group Note - Roby Tejada LMFT - 12/04/2021 10:50 PM CDT Psychotherapy Group Note PATIENT'S NAME: Augustus Ramirez Jr. : 1980 [employer]. NUMBER: [id number] DATE OF SERVICE: 12/04/21 START TIME: 11:00 AM END TIME: 11:50 AM FACE CLEANER: Roby Tejada LMFT TOPIC: EBP Group: Coping Skills [facility] Adult Mental Health Day Treatment TRACK: 6A NUMBER OF PARTICIPANTS: 2 Summary of Group / Topics Discussed: Coping Skills: Improve the Moment: Patients learned to tolerate distress, by applying strategies to effect positive change in the present moment. Patients will identified situations where they would benefit from applying strategies to improve the moment and reduce distress. Patients discussed how to distinguish when this can be useful in their lives or when other strategies would be more relevant or helpful. Patient Session Goals / Objectives: ?? Discuss how the use of intentional ???in the moment?? actions can help reduce distress. ?? Review patients current practices and discuss a more formal way of practicing and accessing skills. ?? Increase ability to decide when to use improve the moment strategies ?? Choose 1-2 in the moment actions to apply during times of distress. Service Modality: Video Visit Telemedicine Visit: The [...] of coping skills at distressing times in life, Demonstrated knowledge of when to consider using a variety of coping skills in daily life, Identified 2-3 positive coping strategies that have helped maintain / improve symptoms in the past and Identified / Expressed personal readiness to practice new coping skills Treatment Plan: Patient has a current master individualized treatment plan. See [facility] treatment plan for more information. [facility] Note - Roby Tejada LMFT - 12/04/2021 10:43 PM CDT Psychotherapy Group Note PATIENT'S NAME: Augustus Ramirez Jr. : 1980 ACCT. NUMBER: [id number] DATE OF SERVICE: 12/04/21 START TIME: 10:00 AM END TIME: 10:50 AM FACE CLEANER: Roby Tejada LMFT TOPIC: EBP Group: Behavioral Activation [facility] Mental Health Day Treatment TRACK: 6A NUMBER OF PARTICIPANTS: 2 Summary of Group / Topics Discussed: Behavioral Activation: Behavior Chain Analysis: Patients explored the steps leading up to identifiedunwanted behaviors, and ways to replace them with more effective behaviors. Patients examined factors contributing to unwanted behaviors, with a goal of determining ways to interrupt the unhealthy patterns. Patient Session Goals / Objectives: ?? Identify thoughts, feelings, and actions that contribute to unwanted behaviors ?? Identify thoughts, feelings, and actions that contribute to more effective/healthy and desired behaviors ?? Make plans to track and implement changes and share experiences in group ?? Identify personal barriers to change Service Modality: Video Visit Telemedicine Visit: The [...] group discussion and participation, Expressedunderstanding of the relationship between behaviors, thoughts, and feelings, Shared experiences and challenges with making behavioral changes, Identified / Expressed personal readiness to make behavioral change and Practiced skills in session Francisco checked in with therapist after group about the following symptoms: Sleep - sometimes he has trouble falling asleep and wakes up early, about once a week, which is a newer symptom for him. For ADLS - he struggles to leave the house, keeping up on hygiene is difficult, he has difficulty engaging in parenting and partner responsibilities and he hasn't been doing much around the house. Treatment Plan: Patient has a current master individualized treatment plan. See [facility] treatment plan for more information. [facility] Note - Sophie Santiago LICSW - 12/04/2021 10:25 AM CDT Process Group Note PATIENT'S NAME: Augustus Ramirez Jr. : 1980 ACCT. 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 Reason for Telemedicine Visit: Services only offered telehealth Originating Site (Patient Location): Patient's home Distant Site (Provider Location): [facility] Consent: The [...] Management and Personal Safety. Pt reports feeling a whirlwind of emotions. He identifies anxiety, depression and excitement. He is grateful that his daughter stopped by, after being estranged, since June. Pt regrets past interactions with her and realizes that he was parenting like his father. He resolves to make changes and is both scared and hopeful for this relationship. Pt identifies coping skills as opposite to emotion and distraction. He feels proud of walking two miles and sees this as a stepping stone for reducing his fear of leaving home. Pt will see his individual therapist tomorrow and is starting the process of digging into my trauma. He is proud of his progress here and identifies steps made since his recent suicide attempt. Denies safety concerns. Therapeutic Interventions/Treatment Strategies: Psychotherapist offered support, feedback and validation and reinforced use of skills. Treatment modalities used include Cognitive Behavioral Therapy. Interventions include Behavioral Activation: Explored how behaviors effect mood and interact with thoughts and feelings, Cognitive Restructuring: Explored impact of ineffective thoughts / distortions on mood and activity and Assisted patient in identifying new neutral/positive core beliefs, Coping Skills: Discussed use of self-soothe skills to decrease distress in the body, Assisted patient in identifying 1-2 healthy distraction skills to reduce overall distress and Reviewed patients current calming practices and discussed a more formal way of practicing and accessing skills and Symptoms Management: Promoted understanding of their diagnoses and howit impacts their functioning. Assessment: Patient response: Patient responded to session by accepting feedback, giving feedback, listening, focusing on goals, being attentive and accepting support Possible barriers to participation / learning include: and no barriers identified Health Issues: None reported Substance Use Review: Substance Use: alcohol and cannabis . and Last use: yesterday. denies that this is a problem Mental Status/Behavioral Observations Appearance: Appropriate Eye Contact: Good Psychomotor Behavior: Normal Attitude: Cooperative Orientation: All Speech Rate / Production: Normal Volume: Normal Mood: Anxious Depressed Fearful Affect: Worrisome Thought Content: Clear Thought Form: Coherent Logical Insight: Good Plan: ??? Safety Plan: No [...] in their treatment plan. ADWOA Self December 04, 2021 documented in this encounter Plan of Treatment Upcoming Encounters Date Type Specialty Care Team Description 12/10/2021 Appointment Sarai Galindo MD [address] [facility] [place], [place] [id number] (James wan) 12/11/2021 Appointment Sarai Galindo MD [address] [place], [place] [address] (James wan) 12/11/2021 Appointment Sarai Galindo MD [address] [place], [place] [address] (Wo rk) 12/13/2021 Appointment Behavioral Health Sarai Weaver MD [address] [place], [place] [address] (Wo rk) 12/17/2021 Appointment Sarai Galindo MD [address] [place] [address] (Wo rk) 12/18/2021 Appointment Health Sarai Weaver MD [address] [place], [place] [address] (Wo rk) documented as of this encounter Visit Diagnoses Diagnosis Current moderate episode of major depres sive disorder without prior episode (H) - Primary documented in this encounter Additional Health Concerns Assessment Noted Time PHQ-9 Depression Total Score: 14 09/30/2021 8:52 AM CD T documented as of this encounter Care Teams Leisure Studies Professor Relationship Specialty Start Date End Date [facility] Medical PCP - General 09/21/21 [address] [place] [address] [facility] 09/21/21 [id number] [place] [address] documented as of this encounter
--- OUTSIDE RECORDS SUMMARY | 2021-12-07 20:38 | XMS_ITS | Encounter Summary ---
:1980 Author Organization [facility] Address [address] [place] [address] Care Team Providers Name Role Phone [facility] Primary Care Provider [phone] Sada Cagle Unavailable [phone] Reason for Visit Mental Health Outpatient (Routine) - Pending Review Specialty Diagnoses / Procedures Referred By Contact Refer red To Contact Behavioral Health Procedures Ur Adult Mh Partial Ur Adult Mh Day Tx MH IOP (6A) [facility] [address], [place], [place] [address] [place], [place] Phone: [phone] Referral ID Status Reason Start Date Expiration Date Visits V isits Requested Authorized [id number] Pending 10/16/2021 10/16/2022 36 23 Review Encounter Details Date Type Department Care Team Description 11/29/2021 Hospital Encounter [facility] Demarco Weaver [facility] & MD Omar episode of major Addiction Services [address] depressive disorder [address] without prior episode [address] [place], (H) (Primary Dx) [facility] [phone] Social History Tobacco Use Types Packs/Day [...] Description 12/10/2021 Appointment Sarai Galindo MD [address] [place] [phone] (Wo rk) 12/11/2021 Appointment Sarai Galindo MD [address] [place] [phone] (Wo rk) 12/11/2021 Appointment Sarai Galindo MD [address] [place] [address] (Wo rk) 12/13/2021 Appointment Sarai Galindo MD [address] [place] [phone] (Wo rk) 12/17/2021 Appointment Sarai Galindo MD [address] [place] [address] (Wo rk) 12/18/2021 Appointment Sarai Galindo MD [address] [place] [phone] (Wo rk) documented as of this encounter Visit Diagnoses Diagnosis Current moderate episode of major depres sive disorder without prior episode (H) - Primary documented in this encounter Additional Health Concerns Assessment Noted Time PHQ-9 Depression Total Score: 14 09/30/2021 8:52 AM CD T documented as of this encounter Care Teams Entry Level Sales Consultant Relationship Specialty Start Date End Date [facility] Medical PCP - General 09/21/21 [address] [address] [place], [place] [phone] [facility] 09/21/21 [address] [address] [place] [id number] documented as of this encounter
--- OUTSIDE RECORDS SUMMARY | 2021-12-07 20:38 | XMS_ITS | Encounter Summary ---
:1980 Author Organization [place] Address [address] [facility] [place] [address] Care Team Providers Name Role Phone [facility] Primary Care Provider [phone] Sada Cagle Unavailable [phone] Encounter Details Date Type Department Care Team Description [facility] [place] [address] [facility] [address] [place] [address] [place], [place] [address] [phone] Social History Tobacco Use Types Packs/Day Years Used Date Current Every Day Smoker Alcohol Use Standard Drinks/Week Comments Yes 0 (1 standard drink = 0.6 oz pure alcoho l) Sex Assigned at Date Recorded Not on file documented as of this encounter Miscellaneous Notes Telephone Encounter - Gen Fischer - 12/05/2021 11:50 AM CDT Left vm for pt to call program line ([phone]) to schedule program provider visit. documented in this encounter Plan of Treatment Upcoming Encounters Date Type Specialty Care Team Description 12/10/2021 Appointment Health Sarai Weaver MD [address] [place], [place] [address] (Wo rk) 12/11/2021 Appointment Sarai Galindo MD [address] [place], [place] [address] (Wo rk) 12/11/2021 Appointment Sarai Galindo MD [address] [place], [place] [address] (Wo rk) 12/13/2021 Appointment Sarai Galindo MD [address] [place], [place] [address] (Wo rk) 12/17/2021 Appointment Sarai Galindo MD [address] [place], [place] [address] (Wo rk) 12/18/2021 Appointment Sarai Galindo MD [address] [place], [place] [address] (Wo rk) documented as of this encounter Visit Diagnoses Not on filedocumented in this encounter Additional Health Concerns Assessment Noted Time PHQ-9 Depression Total Score: 14 09/30/2021 8:52 AM CD T documented as of this encounter Care Teams Virtual Classroom Manager Relationship Specialty Start Date End Date [facility] Medical PCP - General 09/21/21 [address] [place] [address] [facility] 09/21/21 [address] [place] [address] documented as of this encounter
--- OUTSIDE RECORDS SUMMARY | 2021-12-07 20:39 | XMS_ITS | Encounter Summary ---
:1980 Author Organization [facility] Address [address] [place] [address] Care Team Providers Name Role Phone [facility] Primary Care Provider [phone] Sada Cagle Unavailable [phone] Reason for Visit Auth/Cert Specialty Diagnoses / Procedures Referred By Contact Refer red To Contact Behavioral Health Ur Adult Mh Pa rtial [facility] orth Blding [address], [address] [place] [address] Phone: Fax: Referral ID Status Reason Start Date Expiration Date Visits Requ ested Visits Authorized [id number] 1 1 Encounter Details Date Type Department Care Team Description 10/14/2021 Hospital Encounter [facility] Demarco Weaver [facility] Mental Health & MD Omar episode of major Addiction Services [address] depressive disorder [facility] without prior episode Blding [place], (H) (Primary Dx) [address] [place] [address] [address] [place], [place] (Work) [phone] Social History Tobacco Use Types Packs/Day Years Used Date Current Every Day Smoker Alcohol Use Standard Drinks/Week Comments Yes 0 (1 standard drink = 0.6 oz pure alcoho l) Sex Assigned at Date Recorded Not on file COVID-19 Exposure Response Date Recorded In the last 10 days, have you been in contact with No / Unsu re 09/21/2021 12:19 PM CDT someone who was confirmed or suspected to have Coronavirus/COVID-19? documented as of this encounter Medications at [...] Group Note - Roby Tejada LMFT - 10/14/2021 10:47 PM CDT Process Group Note PATIENT'S NAME: Augustus Ramirez Jr. : 1980 [employer]. NUMBER: [id number] DATE OF SERVICE: 10/14/21 START TIME: 9:00 AM END TIME: 9:50 AM PUPIL PERSONNEL WORKER: Roby Tejada LMFT TOPIC: Process Group Diagnoses: 296.32 (F33.1) Major Depressive Disorder, Recurrent Episode, Moderate, With anxious distress Attention-Deficit/Hyperactivity Disorder 314.01 (F90.2) Combined presentation Provisional Diagnoses: 1. Alcohol Use Disorder 303.90 (F10.20) Moderate 2. 305.20 (F12.10) Cannabis Use Disorder Mild [facility] Adult Partial Hospitalization Program TRACK: [facility] Split Process NUMBER OF PARTICIPANTS: 4 Service Modality: Video Visit Telemedicine Visit: The [...] the video invitation sent by: My Chart and email Mode of Communication: Video Conference via Medical Zoom As the provider I attest to compliance with applicable laws and regulations related to telemedicine. Data: Session content: At the start of this group, patients were invited to check in by identifying themselves, describing their current emotional status, and identifying issues to address in this group. Area(s) of treatment focus addressed in this session included Symptom Management, Personal Safety and Community Resources/Discharge Planning. Patient reported feeling a little anxious. His mom is living in his home now. He got the clinics forher transferred over which feels like an accomplishment. He did some self-care and had a lazy Thursday. Patient discussed working toward calling a therapist today. He will get it done after group today. He would like to be more open in group. For skills they will use to address their goal(s), patient identified positive self-talk skills he learned in group. A barrier to working toward their goal(s) and/or addressing mental health symptoms the patient identified was anxiety, shame and guilt, he feels. Patient reported no safety concerns and/or self-injurious behaviors. Patient reported he smoked a little pot and had a few cocktails over the weekend. Patient reported they are taking their medicationsas prescribed. Patient reported feeling proud/grateful for finishing up the move with his mom and the patience his family is showing him. Patient discussed with the treatment group that he is feeling a little anxious. His mom is living inhis home now, and he did some self-care and had a lazy Thursday. Therapeutic Interventions/Treatment Strategies: Psychotherapist offered support, feedback and validation. Treatment modalities used include Cognitive Behavioral Therapy. Interventions include Coping Skills: Facilitated understanding of what factors may contribute to symptom relapse and skills plan to manage symptom relapse and Symptoms Management: Promoted understanding of their diagnoses and how it impacts their functioning. Assessment: Patient response: Patient responded to session by accepting feedback, giving feedback, listening, focusing on goals, being attentive and accepting support Possible barriers to participation / learning include: and no barriers identified Health Issues: None reported Substance Use Review: Substance Use: Patient reported he smoked a little pot and had a few cocktails over the weekend. Mental Status/Behavioral Observations Appearance: Appropriate Eye Contact: Good Psychomotor Behavior: Normal Attitude: Cooperative Orientation: All Speech Rate / Production: Normal Volume: Normal Mood: Anxious Depressed Affect: Appropriate Thought Content: Clear and Safety denies any current safety concerns including suicidal ideation, self-harm, and homicidal ideation Thought Form: Coherent Logical Insight: Good Plan: ??? Safety Plan: No current safety concerns identified. ??? Barriers to treatment: None identified ??? Patient Contracts (see media tab): None ??? Substance Use: Provided encouragement towards sobriety ??? Continue or Discharge: Patient will continue in Adult Partial Hospitalization Program (PHP) as planned. Patient is likely to benefit from learning and using skills as they work toward the goals identified in their treatment plan. DENNIS Peterson October 14, 2021 Group Note - Belkis Leonard RN - 10/14/2021 3:46 PM CDT Psychoeducation Group Note PATIENT'S NAME: Augustus Ramirez Jr. : 1980 [employer]. NUMBER: [id number] DATE OF SERVICE: 10/14/21 START TIME: 2:00 PM END TIME: 2:50 PM PUPIL PERSONNEL WORKER: Belkis Leonard RN TOPIC: Wellness Group: [facility] Adult Partial Hospitalization Program TRACK: [facility] NUMBER OF PARTICIPANTS: 8 Summary of Group / Topics Discussed: [facility]: Sleep: Case study/sleep hygiene: Patients explored the connection between sleep and mental illness. Patients learned about how adequate sleep can improve health, productivity, wellness, quality of life, and safety. Patient Session Goals / Objectives: ? Demonstrated understanding of sleep hygiene practices and benefits of sleep ? Identified sleep hygiene strategies to utilize ?? Described the connection between sleep disturbances and mental illness Service Modality: Video Visit Telemedicine Visit: The [...] feedback with other participants. Verbalized understanding of foundations of health topic Treatment Plan: Patient has a current master individualized treatment plan. See [facility] treatment plan for more information. Belkis Leonard RN Group Note - Adelaide Morris OTR/L - 10/14/2021 2:12 PM CDT Psychoeducation Group Note PATIENT'S NAME: Augustus Ramirez Jr. : 1980 [employer]. NUMBER: [id number] DATE OF SERVICE: 10/14/21 START TIME: 1:00 PM END TIME: 1:50 PM PUPIL PERSONNEL WORKER: Adelaide Morris OTR/L TOPIC: [facility] OT Group: Self- Regulation Skills [facility] Adult Partial Hospitalization Program TRACK: [facility] NUMBER OF PARTICIPANTS: 8 Summary of Group / Topics Discussed: Self-Regulation Skills: Coping Skills: Aftercare Coping Cards: Patients were taught how to begin to develop a relapse management kit for both mental and abstaining from maladaptive coping skills by creating individualized coping cards. Patient Session Goals / Objectives: ??? Identified individualized coping skills they can use for effectively managing both mental healthand substance abuse/abuse symptoms ??? Improved awareness of different types of coping skills and how to personalize them to their unique situation and circumstances ??? Established a plan for practice of these skills in their own environments ??? Practiced and reflected on how to generalize taught skills to their everyday life Patient Participation / Response: Minimally participated, only when prompted / asked. Patient presentation: Francisco shared when prompted, otherwise appeared flat; shared some affirmations: I am worthy of compassion, my feelings are valid, I am not alone and leisure interest - car repair. Treatment Plan: Patient has a current master individualized treatment plan. See [facility] treatment plan for more information. MADI Liriano Group Note - Roby Tejada LMFT - 10/14/2021 11:49 AM CDT Psychotherapy Group Note PATIENT'S NAME: Augustus Ramirez Jr. : 1980 [employer]. NUMBER: [id number] DATE OF SERVICE: 10/14/21 START TIME: 10:00 AM END TIME: 10:50 AM PUPIL PERSONNEL WORKER: Roby Tejada LMFT TOPIC: MH EBP Group: Specialty Awareness [facility] Adult Partial Hospitalization Program TRACK: [facility] NUMBER OF PARTICIPANTS: 8 Summary of Group / Topics Discussed: Specialty Topics: Education Support Network: Patients reviewed handouts for identifying the mild, moderate, and severe symptoms of their disorder. Patients identified helpful supportive statements and actions they would appreciate from caregivers. The goal is to gather information in preparation for the education support network for problem solving and planning for support with caregivers. Patient Session Goals / Objectives: ??? Understanding diagnoses and accompanying physical reactions, thoughts, and behaviors. ??? Explored options to support patients in their recovery ??? Formulated a plan to communicate with caregivers for assistance and support to aid in recovery ??? Problem solved barriers to follow through on plan Service Modality: Video Visit Telemedicine Visit: The [...] the video invitation sent by: My Chart and email Mode of Communication: Video Conference via Medical [...] a current master individualized treatment plan. See [facility] treatment plan for more information. DENNIS Peterson Group Note - Kathleen Grajeda LMFT - 10/14/2021 11:02 AM CDT Psychotherapy Group Note [facility]'S NAME: [facility] 1980 [id number] DATE OF SERVICE: 10/14/21 START TIME: 11:00 AM END TIME: 11:50 AM PUPIL PERSONNEL WORKER: Kathleen Grajeda LMFT TOPIC: MH EBP Group: Cognitive Restructuring [facility] Adult Partial Hospitalization Program TRACK: 1 NUMBER OF PARTICIPANTS: 8 Summary of Group / Topics Discussed: Cognitive Restructuring: Core Beliefs: Patients received an overview of what a core belief is, and how they develop. Patients then began to identify their negative core beliefs. Patients worked to modify core beliefs with the goal of improved self-image and functioning. Patient Session Goals / Objectives: ??? Familiarize self with the concept of core beliefs and how they develop. ??? Explore personal core beliefs (positive and negative) ??? Develop / advance recognition of the connection between negative thoughts and negative core beliefs. ??? Formulate new neutral/positive core beliefs Service Modality: Video Visit Telemedicine Visit: The [...] the relationship between behaviors, thoughts, and feelings, Demonstrated knowledge of personal thought patterns and how they impact their mood and behavior. and Verbalized understanding of patient's own thought patterns and how they impact their mood and behaviors Treatment Plan: Patient has a current master individualized treatment plan. See Epic treatment plan for more information. DENNIS Garcia documented in this encounter Plan of Treatment Upcoming Encounters Date Type Specialty Care Team Description 12/10/2021 Appointment Sarai Galindo MD [address] [place] [address] [phone] (Wo rk) 12/11/2021 Appointment Sarai Galindo MD [address] [place] [address] [phone] (Wo rk) 12/11/2021 Appointment Sarai Galindo MD [address] [place] [address] [phone] (Wo rk) 12/13/2021 [place] [address] [place] [address] [phone] (Wo rk) 12/17/2021 [place] [address] [place] [address] [phone] (Wo rk) 12/18/2021 Appointment Sarai Galindo MD [address] [place] [address] [phone] (Wo rk) documented as of this encounter Visit Diagnoses Diagnosis Current moderate episode of major depres sive disorder without prior episode (H) - Primary documented in this encounter Additional Health Concerns Assessment Noted Time PHQ-9 Depression Total Score: 14 09/30/2021 8:52 AM CD T documented as of this encounter Care Teams Instrument And Electrical Technician Relationship Specialty Start Date End Date [facility] PCP - General 09/21/21 [address] [place] [address] [facility] 7/23/[address] [place] [address] documented as of this encounter
--- OUTSIDE RECORDS SUMMARY | 2021-12-07 20:39 | XMS_ITS | Encounter Summary ---
:1980 Author Organization [facility] Address [address] [address] Care Team Providers Name Role Phone [facility] Primary Care Provider [phone] Sada Cagle Unavailable [phone] Reason for Visit Mental Health Outpatient (Routine) - Pending Review Specialty Diagnoses / Procedures Referred By Contact Refer red To Contact Behavioral Health Procedures Ur Adult Mh Partial Ur Adult Mh Day Tx MH IOP (6A) [facility] [address], [address] [place], [place] [address] [address] [place], [place] Phone: [phone] Referral ID Status Reason Start Date Expiration Date Visits V isits Requested Authorized [id number] Pending 10/16/2021 10/16/2022 36 23 Review Encounter Details Date Type Department Care Team Description 11/12/2021 Hospital Encounter [facility] Addiction MD Omar Services [address] [place], [place] [address] [address] [place], [place] [phone] [address] (Work) [phone] Social History Tobacco Use Types Packs/Day Years [...] Group Note - Sophie Santiago LICSW - 11/12/2021 3:09 PM CDT Psychotherapy Group Note PATIENT'S NAME: Augustus Ramirez Jr. : 1980 [employer]. NUMBER: [id number] DATE OF SERVICE: 11/12/21 START TIME: 10:00 AM END TIME: 10:50 AM AGRICULTURAL SYSTEMS SPECIALIST: Sophie Santiago LICSW TOPIC: EBP Group: Coping Skills [facility] Adult Mental Health Day Treatment TRACK: 6A Telemedicine Visit: The patient's condition can be safely assessed and treated via synchronous audioand visual telemedicine encounter. Reason for Telemedicine Visit: Services only offered telehealth Originating Site (Patient Location): Patient's home Distant Site (Provider Location[place] [facility] [facility] [place]: The patient/guardian has verbally consented to: [...] of Group / Topics Discussed: Coping Skills: Calming Strategies/TIPP Skills: Patients discussed and practiced strategies to increase sense of calm in the body. Reviewed the benefits of calming strategies as well as past / current practices of each member. Patients identified situations in which using these strategies would reduce stress. They developed the ability to distinguish when these strategies can be useful in their lives for management and stress and psychological well-being. Patient Session Goals / Objectives: ?? Understand the purpose of using calming strategies to reduce stress ?? Review patients current calming practices and discuss a more formal way of practicing and accessing skills. ?? Increase ability to decide when to use various calming strategies (e.g. Progressive muscle relaxation, deep breathing, guided imagery, + thoughts). ?? Choose 1-2 calming strategies to apply during times of distress. Patient Participation / Response: Fully participated with the group by sharing personal reflections / insights and openly received / provided feedback with other participants. Demonstrated understanding of topics discussed through group discussion and participation and Expressed understanding of the relevance / importance of coping skills at distressing times in life Treatment Plan: Patient has a current master individualized treatment plan. See [facility] treatment plan for more information. ADWOA Self Group Note - Roby Tejada LMFT - 11/12/2021 1:46 PM CDT Psychotherapy Group Note PATIENT'S NAME: Augustus Ramirez Jr. : 1980 [employer]. NUMBER: [id number] DATE OF SERVICE: 11/12/21 START TIME: 11:00 AM END TIME: 11:50 AM AGRICULTURAL SYSTEMS SPECIALIST: Roby Tejada LMFT TOPIC: EBP Group: Coping Skills [facility] Adult Mental Health Day Treatment TRACK: 6A NUMBER OF PARTICIPANTS: 5 Summary of Group / Topics Discussed: Coping Skills: Relapse Planning: Patients discussed and increased understanding of how anticipating and planning for possible increased symptoms is a proactive way to reduce the likelihood of relapse. Patients shared individualized factors that may lead to increased symptoms and decompensation in functioning. Each patient developed a relapse prevention plan designed to help them recognize when they may have increasing symptoms requiring them to take action and notify their freeman supports and care team. Patient Session Goals / Objectives: ?? Identify and understand what factors may contribute to symptom relapse. ?? Identify actions that may be taken to manage increased symptoms/stressors. ?? Create an individualized written relapse plan ?? Problem solve barriers to plan creation and implementation ?? Share relapse plan with freeman support people Service Modality: Video Visit Telemedicine Visit: The [...] provided feedback with other participants. Francisco reported that he feels he is able to talk more with his family about his mental health concernssince his mental health crisis about a month ago. Francisco agreed to take some self-care time after group today, which therapist recommended to all group members since Crisis Planning can be a difficult topic. Demonstrated understanding of topics discussed through group discussion and participation, Expressedunderstanding of the relevance / importance of coping skills at distressing times in life and Identified 2-3 positive coping strategies that have helped maintain / improve symptoms in the past Treatment Plan: Patient has a current master individualized treatment plan. See [facility] treatment plan for more information. DENNIS Peterson Group Note - Sophie Santiago LICSW - 11/12/2021 1:37 PM CDT Process Group Note PATIENT'S NAME: Augustus Ramirez Jr. : 1980 [employer]. NUMBER: [id number] DATE OF SERVICE: 11/12/21 START TIME: 9:00 AM END TIME: 9:50 AM AGRICULTURAL SYSTEMS SPECIALIST: Sophie Santiago LICSW TOPIC: Process Group Diagnoses: 296.32 (F33.1) Major Depressive Disorder, Recurrent Episode, Moderate, With anxious distress Alcohol Use Disorder 303.90 (F10.20) Moderate; 305.20 (F12.10) Cannabis Use Disorder Mild Provisional Diagnosis: Attention-Deficit/Hyperactivity Disorder 314.01 (F90.2) Combined presentationas evidenced by patient's report [facility] Adult Mental Health Day Treatment TRACK: 6A Telemedicine Visit: The patient's condition can be safely assessed and treated via synchronous audioand visual telemedicine encounter. Reason for Telemedicine Visit: Services only offered telehealth Originating Site (Patient Location): Patient's home Distant Site (Provider Location): [facility] [facility] [place] Consent: The patient/guardian has verbally consented to: [...] Symptom Management and Personal Safety. Pt reports a very difficult weekend. He was very anxious attending nephew's and felt obligated to stay for the duration. Pt feels guilty for staying home the rest of the weekend, while his [facility]. Pt reports struggle to leave the house. He makes a plan to get tires today and identifies [facility] as a place he can go to in the luggage attendant. He identifies coping skills as: distraction, grounding and affirmations. He is looking forward to upcoming individual therapy session and wants to address trauma. He denies safety concerns. Therapeutic Interventions/Treatment Strategies: Psychotherapist offered support, feedback and validation and reinforced use of skills. Treatment modalities used include Cognitive Behavioral Therapy. Interventions include Behavioral Activation: Explored how behaviors effect mood and interact with thoughts and feelings and Coping Skills: Discussed use of self-soothe skills to decrease distress in the body, Reviewed patients current calming practicesand discussed a more formal way of practicing and accessing skills and discussed exposure therapy and ways to slowly expand his time outside the home. Assessment: Patient response: Patient responded to session by accepting feedback, listening, focusing on goals, being attentive and accepting support Possible barriers to participation / learning include: and no barriers identified Health Issues: None reported Substance Use Review: Substance Use: alcohol and cannabis . and Last use: yesterday. I don't think it is a problem Mental Status/Behavioral Observations Appearance: [...] Substance Use: Provided encouragement towards sobriety ??? encouraged self-reflection and discussed potential problems with chemical use and depression ??? Continue or Discharge: Patient will continue in Adult Day Treatment (ADT) as planned. Patient islikely to benefit from learning and using skills as they work toward the goals identified in their treatment plan. ADWOA Self November 12, 2021 documented in this encounter Plan of Treatment Upcoming Encounters Date Type Specialty Care Team Description 12/10/2021 [place] [address] [place] [address] [phone] (James wan) 12/11/2021 [place] [address] [place] [phone] (James rk) 12/11/2021 Appointment Sarai Galindo MD [address], [place] [address] (James rk) 12/13/2021 Appointment Sarai Galindo MD [address] [place] [address] [phone] (James wan) 12/17/2021 Appointment Sarai Galindo MD [address] [place] [address] (James wan) 12/18/2021 Appointment Behavioral Health Sarai Weaver MD [address] [place], [place] [phone] (Wo rk) documented as of this encounter Visit Diagnoses Not on filedocumented in this encounter Additional Health Concerns Assessment Noted Time PHQ-9 Depression Total Score: 14 09/30/2021 8:52 AM CD T documented as of this encounter Care Teams Dinkey Mechanic Relationship Specialty Start Date End Date [facility] Medical PCP - General 09/21/21 [address] [place] [address] [facility] 09/21/21 [address] [id number] documented as of this encounter
--- OUTSIDE RECORDS SUMMARY | 2021-12-07 20:39 | XMS_ITS | Encounter Summary ---
:1980 Author Organization [place] Address [address] [place] [address] Care Team Providers Name Role Phone [facility] Primary Care Provider [phone] Sada Cagle Unavailable [phone] Encounter Details Date Type Department Care Team Description 10/14/2021 Telephone [facility] Doc Leonard RN & Addiction Services [place] [address] [place], [place] [phone] Social History Tobacco Use Types Packs/Day Years [...] have Coronavirus/COVID-19? documented as of this encounter Plan of Treatment Upcoming Encounters Date Type Specialty Care Team Description 12/10/2021 Appointment Sarai Galindo MD [address] [place] [address] (Wo rk) 12/11/2021 Appointment Sarai Galindo MD [address] [place] [address] (Wo rk) 12/11/2021 Appointment Sarai Galindo MD [address] [place] [address] (Wo rk) 12/13/2021 Appointment Sarai Galindo MD [address] [place] [address] (Wo rk) 12/17/2021 Appointment Sarai Galindo MD [address] [place], [place] [address] (Wo rk) 12/18/2021 Appointment Sarai Galindo MD [address] [place], [place] [address] (Wo rk) documented as of this encounter Visit Diagnoses Not on filedocumented in this encounter Additional Health Concerns Assessment Noted Time PHQ-9 Depression Total Score: 14 09/30/2021 8:52 AM CD T documented as of this encounter Care Teams Insurance Claims Processor Relationship Specialty Start Date End Date [facility] Medical PCP - General 09/21/21 [address] [place], [place] [phone] [facility] 09/21/21 [address] [place] [id number] documented as of this encounter
--- OUTSIDE RECORDS SUMMARY | 2021-12-07 20:39 | XMS_ITS | Encounter Summary ---
:1980 Author Organization [place] Address [address] [place] [address] Care Team Providers Name Role Phone [facility] Primary Care Provider [phone] Sada aCgle Unavailable [phone] Reason for Visit Auth/Cert Specialty Diagnoses / Procedures Referred By Contact Refer red To Contact Behavioral Health Ur Adult Mh Pa rtial [facility] orth [address]lding [address], [address] [place] [address] Phone: Fax: Referral ID Status Reason Start Date Expiration Date Visits Requ ested Visits Authorized [id number] 1 1 Encounter Details Date Type Department Care Team Description 10/16/2021 Hospital Encounter [facility] Demarco Weaver [facility] Mental Health & MD Omar episode of major Addiction Services [address] depressive disorder [facility] without prior episode Blding [place], (H) (Primary Dx) [address] [place] [address] [address] [place], [place] (Work) [address] Social History Tobacco Use [...] UT) tablet documented as of this encounter Progress Notes Omar Weaver MD - 10/16/2021 2:09 PM CDT [facility] Provider Interval History Note Program: [facility] Program Track: 1 PATIENT'S NAME: Augustus Ramirez Jr. : 1980 ACCT. NUMBER: [id number] DATE OF SERVICE: 10/16/21 CALL/VIDEO START TIME: 1409 CALL/VIDEO END TIME: 1418 Interval History: Better than when I first started, that's for sure. Francisco presents today for follow-up and ongoing program supervision. Endorses: ??? Continued benefit from programming ??? States his mother is now living with his family in their home o It's going well ??? Feels ready to step down intensive outpatient, looking forward to that step in his treatment ??? Remains on FMLA leave and plans to continue off work through IOP Symptoms: ??? Improving Substance use: ??? Unchanged Reactions/thoughts about program: ??? If this had been 3-4 weeks I would have been totally down for that ??? I've been putting into place the things that I've learned o Mentioned specific skills, including enhahjlg-lw-rifcker, etc. ??? I can't wait for the next [program] more Risk Assessment: ??? Suicidal ideation: denies current or recent suicidal ideation or behavior ??? Thoughts of non-suicidal self-injury: denied ??? Recent self-injurious behavior: denied ??? Homicidal ideation: denied ??? Other safety concerns: denied Medications: Current Outpatient Medications Medication Sig Dispense Refill ??? amphetamine-dextroamphetamine (ADDERALL) 20 MG tablet Take 20 mg by mouth 3 times daily ??? Ascorbic Acid (VITAMIN C) 500 MG CAPS Take 500 mg by mouth daily ??? cetirizine (ZYRTEC) 10 MG tablet Take 10 mg by mouth daily ??? Vitamin D3 (CHOLECALCIFEROL) 125 MCG (5000 UT) tablet Take 125 mcg by mouth daily The above list was reviewed and updated in [facility] with patient today. Patient is taking medications as prescribed and denies adverse effects Laboratory Results: Most recent labs reviewed. Pertinent updates/findings: None. Metrics: PHQ-9 scores: PHQ-9 SCORE 09/30/2021 PHQ-9 Total Score 14 YAMILE-7 scores: YAMILE-7 SCORE 10/02/2021 10/02/2021 10/02/2021 Total Score - - 10 (moderate anxiety) Total Score 10 10 10 CSSR-S: No flowsheet data found. Mental Status Examination (limited due to video virtual visit format): Vital Signs: There were no vitals taken for this virtual visit. Appearance: appropriately groomed, appears stated age, and in no apparent distress. Attitude: cooperative Eye Contact: good to the extent that can be determined in a video visit Muscle Strength and Tone: no gross abnormalities based on remote observation Psychomotor Behavior: Appropriate and Calm; no evidence of tardive dyskinesia, dystonia, or tics based on remote observation Gait and Station: normal, no gross abnormalities based on remote observation Speech: clear, coherent, normal prosody, regular rate, regular rhythm and fluent Associations: No loosening of associations Thought Process: coherent and goal directed Thought Content: no evidence of suicidal ideation or homicidal ideation, no evidence of psychotic thought, no auditory hallucinations present and no visual hallucinations present Mood: better Affect: mood congruent, intensity is normal, constricted mobility and reactive Insight: good Judgment: intact, adequate for safety Impulse Control: intact Oriented to: time, place, person and situation Attention Span and Concentration: normal Language: Intact Recent and Remote Memory: intact to interview. Not formally assessed. No amnesia. Fund of Knowledge/Assessment of Intelligence: Average Capacity of Activities of Daily Living: Independent, able to participate in programmatic care services. Diagnosis/es: 1. 296.32 (F33.1) Major Depressive Disorder, Recurrent Episode, Moderate,??With anxious distress? 2. Attention-Deficit/Hyperactivity Disorder?314.01 (F90.2) Combined presentation 3. Provisional Diagnoses:? 1. Alcohol Use Disorder?303.90 (F10.20) Moderate 2. 305.20 (F12.10) Cannabis Use Disorder Mild? Assessment/Plan: Francisco presents today for follow up. Endorses continued improvement with more time spent in the partial hospital program. Has reached maximum benefit at this level of care. Ongoing life stressors, including a terminally ill mother who is now living in his home. Patient anticipates he will not be returning to work for several weeks to months due to ongoing severity of symptoms and I support this decision. Continues to meet criteria for intensive outpatient level of care. [facility]charge from [facility] today, will start IOP Thursday. Current amphetamine-dextroamphetamine dose is supportive of his recovery. Patient prefers no other psychotropic medications at this time. Given overall improvement, this is certainly a sensible course of action. No changes to medications today. ??? Depression o Overall improved o Not remitted o No additional medications as noted above o Discharge from partial hospital program today o Stepdown to intensive outpatient program later this week ??? ADHD o Overall stable o Continue present management ??? Alcohol use o Overall stable o Does not seem to be exacerbating symptoms are causing additional difficulties o Continue to monitor ??? Cannabis use o Overall stable o See alcohol use discussion above Continue all other medications as reviewed per electronic medical record today Continue therapy as planned: ??? Enrolled in Partial Hospital Program ??? Has reached maximum benefit at this level of care ??? Continues to meet criteria for intensive outpatient level of care ??? Patient would be at reasonable risk of requiring a higher level of care in the absence of current services. ??? I feel this patient does not meet criteria for an involuntary hold and is appropriate for treatment at an outpatient level of care. ??? Continue with individual therapist as appropriate Safety plan reviewed: ??? To the Emergency Department as needed or call after hours crisis line at [phone] or [phone]. [place] Crisis Text Line: Text [place] to [address]67113 or Suicide LifeLine Chat: suicidepreventionlifeline.org/chat Follow-up: ??? schedule an appointment with me or another program provider in approximately in 4 week(s) or sooner if needed. Can speak with a staff member or call the appropriate program number (see below) to schedule ??? Follow up with outpatient provider(s) as planned or sooner if needed for acute medical concerns. Questions or concerns: ??? Call program line with questions or concerns (see below) ??? HardMetricshart may be used to communicate with your provider, but this is not intended to be used for emergencies. [facility] Adult Mental Health Program lines: [facility]: [phone] Dual Disorder: [phone] Adult Day Treatment: [phone] 55+/Intensive Outpatient: [phone] Community Resources: National Suicide Prevention Lifeline: 988 from any phone, or 386-479-2188 (TTY: 597.144.9733). Call anytime for help. (www.suicidepreventionlifeline.org) National [place] on Mental Illness (www.nasreen.org): 565.501.4511 or 714-390-7464. Mental Health Association (www.mentalhealth.org): 885.715.6861 or 455-686-9253. [place] Crisis Text Line: Text [place] to 48[address]39 Suicide LifeLine Chat: suicidepreBlaBlaCarline.org/chat Treatment Objective(s) Addressed in This Session: The purpose of today's virtual visit is for this tag writer to provide oversight of patient's care whilereceiving program services. Specific treatment goals addressed included personal safety, symptoms stabilization and management, wellness and mental health, and community resources/discharge planning. This author or another program provider will follow up with the patient as noted above. Patient agrees with the current plan of care. Omar Weaver MD 10/16/21 Visit Details: Type of service: Video Visit Start/End Time: see above Originating Location (pt. Location): Home in [place] Distant Location (provider location): Provider Remote Setting- Home Office Platform used for Video Visit: Zoom Physician has received verbal consent for a Video Visit from the patient? Yes 20 minutes spent on the date of the encounter doing chart review, patient visit, documentation and discussion with other provider(s) This document completed in part using Bonaverde dictation software. Please excuse any inadvertent word or phrase substitutions. documented in this encounter Plan of Treatment Upcoming Encounters Date Type Specialty Care Team Description 12/10/2021 Appointment Sarai Galindo MD [address] [place], [place] [address] (Wo rk) 12/11/2021 Appointment Sarai Galindo MD [address] [place], [place] [address] (Wo rk) 12/11/2021 [place] [address] [place], [place] [address] [place], [place] [address] (Wo rk) 12/13/2021 Appointment Saria Galindo MD [address] [place], [place] [address] (Wo rk) 12/17/2021 [place] [address] [place] [id number] (Wo rk) 12/18/2021 [place] [address] [place] [id number] (Wo rk) documented as of this encounter Visit Diagnoses Diagnosis Current moderate episode of major depres sive disorder without prior episode (H) - Primary documented in this encounter Additional Health Concerns Assessment Noted Time PHQ-9 Depression Total Score: 14 09/30/2021 8:52 AM CD T documented as of this encounter Care Teams Biotechnologist Relationship Specialty Start Date End Date [facility] Medical PCP - General 09/21/21 [address] [place] [address] [facility] 09/21/21 [address] [place] [address] [place] [address] documented as of this encounter
--- OUTSIDE RECORDS SUMMARY | 2021-12-07 20:39 | XMS_ITS | Encounter Summary ---
:1980 Author Organization [place] Address [address] [place] [address] Care Team Providers Name Role Phone [facility] Primary Care Provider [phone] Sada Cagle Unavailable [phone] Reason for Visit Mental Health Outpatient (Routine) - Pending Review Specialty Diagnoses / Procedures Referred By Contact Refer red To Contact Behavioral Health Procedures Ur Adult Mh Partial Ur Adult Mh Day Tx MH IOP (6A) [facility] [address], [address] [place], [place] [address] [address] [place], [place] Phone: [phone] Referral ID Status Reason Start Date Expiration Date Visits V isits Requested Authorized [id number] Pending 10/16/2021 10/16/2022 36 23 Review Encounter Details Date Type Department Care Team Description 11/13/2021 Hospital Encounter [facility] Demarco Weaver [facility] & MD Omar episode of major Addiction Services [address] depressive disorder [address] without prior episode [address] [place], (H) (Primary Dx) [facility] [id number] Social History Tobacco Use Types Packs/Day [...] Group Note - Roby Tejada LMFT - 11/13/2021 3:44 PM CDT Psychotherapy Group Note PATIENT'S NAME: Augustus Ramirez Jr. : 1980 ACCT. NUMBER: [id number] DATE OF SERVICE: 11/13/21 START TIME: 11:00 AM END TIME: 11:50 AM INSULATION ESTIMATOR: Rboy Tejada LMFT TOPIC: EBP Group: Self-Awareness [facility] Adult Mental Health Day Treatment TRACK: 6A NUMBER OF PARTICIPANTS: 5 Summary of Group / Topics Discussed: Self-Awareness: Self-Compassion: Patients received overview of freeman concepts in developing self-compassion. Patients discussed mindfulness, self-kindness, and finding common humanity. Patients identified their current approach to problems in their lives and learned skills for increasing self-compassion. Patients identified ways they can put self-compassion skills into practice and problem solve barriers to application of skills. Patient Session Goals / Objectives: ??? Fellows components of self-compassion ??? Identify ways to practice self-compassion in daily life ??? Problem solve barriers to self-compassion practice Service Modality: Video Visit Telemedicine Visit: The [...] values, strengths, and challenges to learn about themselves, Identified / Expressed readiness to act intentionally, increase self-compassion, promote personal growth, Verbalized understanding of ways to proactively manage illness and Practiced skills in session Treatment Plan: Patient has a current master individualized treatment plan. See [facility] treatment plan for more information. [facility] Group Note - Roby Tejada LMFT - 11/13/2021 1:32 PM CDT Psychotherapy Group Note PATIENT'S NAME: Augustus Ramirez Jr. : 1980 ACCT. NUMBER: [id number] DATE OF SERVICE: 11/13/21 START TIME: 10:00 AM END TIME: 10:50 AM INSULATION ESTIMATOR: Roby Tejada LMFT TOPIC: EBP Group: Emotions Management [facility] Mental Health Day Treatment TRACK: 6A NUMBER OF PARTICIPANTS: 5 Summary of Group / Topics Discussed: Emotions Management: Guilt and Shame: Patients explored and shared personal experiences associated with feelings of guilt and shame. Group explored how these feelings develop, what they mean to each individual, and how to increase acceptance and usefulness of these feelings. Group members assisted oneanother to contextualize these concepts and promote healing. Patient Session Goals / Objectives: ?? Discuss and review definitions and personal views/experiences with guilt and shame ?? Understand the differences between guilt and shame ?? Explore how feelings of guilt and shame impact functioning ?? Understand and practice strategies to manage difficult emotions and move towards healing ?? Understand and normalize difficult emotions through group discussion ?? Understand the utility of guilt and shame ?? Target ???unwanted?? emotions for change Service Modality: Video Visit Telemedicine Visit: [...] / provided feedback with other participants. Francisco discussed many negative messages he received in his upbringing contributed to ongoing negative self talk in many areas of his life. Demonstrated understanding of topics discussed through group discussion and participation, Expressedunderstanding of the relevance / importance of emotions management skills at distressing times in life, Self-aware of experiences with difficult emotions, and strategies to employ to manage them, Demonstrated understanding and practice strategies to manage difficult emotions and move towards healing, Identified barriers to applying emotions management strategies, Identified strategies to overcome barriers to use of emotions management skills, Practiced 2-3 new skills in session and Identified / Expressed personal readiness to practice new emotions management skills Treatment Plan: Patient has a current master individualized treatment plan. See [facility] treatment plan for more information. [facility] Group Note - Sophie Santiago LICSW - 11/13/2021 10:38 AM CDT Process Group Note PATIENT'S NAME: Augustus Ramirez Jr. : 1980 AC[place]. NUMBER: [id number] DATE OF SERVICE: 11/13/21 START TIME: 9:00 AM END TIME: 9:50 AM INSULATION ESTIMATOR: Sophie Santiago LICSW TOPIC: Process Group Diagnoses: 296.32 (F33.1) Major Depressive Disorder, Recurrent Episode, Moderate, With anxious distress Alcohol Use Disorder 303.90 (F10.20) Moderate; 305.20 (F12.10) Cannabis Use Disorder Mild Provisional Diagnosis: Attention-Deficit/Hyperactivity Disorder 314.01 (F90.2) Combined presentationas evidenced by patient's report [facility] Adult Mental Health Day Treatment TRACK: 6A Telemedicine Visit: The patient's condition can be safely assessed and treated via synchronous audioand visual telemedicine encounter. Reason for Telemedicine Visit: Services only offered telehealth Originating Site (Patient Location): Patient's home Distant Site (Provider Location): [facility]: [facility] Consent: The patient/guardian has verbally consented to: [...] Symptom Management and Personal Safety. Pt reports increased anxiety. He feels ashamed and guilty for not being at work. 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 Pt continues to struggle with agoraphobia and becomes fearful when needing to leave his home. Pt does plan to get tires today. He identifies coping skills as distraction and deep breathing. Discussed the benefits of exercise and pt sets goal to take a bike ride today. Denies safety concerns. Therapeutic Interventions/Treatment Strategies: Psychotherapist offered support, feedback and validation, provided redirection and reinforced use ofskills. Treatment modalities used include Cognitive Behavioral Therapy. Interventions include Behavioral Activation: Explored how behaviors effect mood and interact with thoughts and feelings, Coping Skills: Discussed use of self-soothe skills to decrease distress in the body, Assisted patient in identifying 1-2 healthy distraction skills to reduce overall distress and Assisted patient in understanding the purpose of planning / creating / participating / sharing in positive experiences and Symptoms Management: Promoted understanding of their [...] in their treatment plan. ADWOA Self November 13, 2021 documented in this encounter Plan of Treatment Upcoming Encounters Date Type Specialty Care Team Description 12/10/2021 [place] [address] [place] [id number] (James wan) 12/11/2021 Appointment Sarai Galindo MD [address], [place] [address] (James wan) 12/11/2021 Appointment Sarai Galindo MD [address], [place] [address] (James wan) 12/13/2021 Appointment Sarai Galindo MD [address] [place], [place] [address] (James wan) 12/17/2021 Appointment Sarai Galindo MD [address] [place] [address] [place] [address] (Wo rk) 12/18/2021 Appointment Behavioral [facility] OwenSarai bhatt MD [address] [place], [place] [address] (Wo rk) documented as of this encounter Visit Diagnoses Diagnosis Current moderate episode of major depres sive disorder without prior episode (H) - Primary documented in this encounter Additional Health Concerns Assessment Noted Time PHQ-9 Depression Total Score: 14 09/30/2021 8:52 AM CD T documented as of this encounter Care Teams Surfacing Machine Operator Relationship Specialty Start Date End Date [place] [place] Medical PCP - General 09/21/21 [address] [place] [address] [facility] 09/21/21 [address] [address] [place] [address] documented as of this encounter
--- OUTSIDE RECORDS SUMMARY | 2021-12-07 20:39 | XMS_ITS | Encounter Summary ---
:1980 Author Organization [place] Address [address] [place] [address] Care Team Providers Name Role Phone [facility] Primary Care Provider [phone] Sada Cagle Unavailable [phone] Encounter Details Date Type Department Care Team Description 10/09/2021 Telephone [facility] Doc Leonard RN & Addiction Services [place] [address] [place], [place] [address] Social History Tobacco Use [...] Team Description 12/10/2021 Appointment Sarai Galindo MD [address] [place] [address] (Wo rk) 12/11/2021 Appointment Sarai Galindo MD [address] [place] [address] (Wo rk) 12/11/2021 Appointment Sarai Galindo MD [address] [place] [address] (Wo rk) 12/13/2021 Appointment Sarai Galindo MD [address] [place] [address] (Wo rk) 12/17/2021 Appointment Sarai Galindo MD [address] [place], [place] [address] (Wo rk) 12/18/2021 Appointment Sarai Galindo MD [address] [place], [place] [address] (Wo rk) documented as of this encounter Visit Diagnoses Not on filedocumented in this encounter Additional Health Concerns Assessment Noted Time PHQ-9 Depression Total Score: 14 09/30/2021 8:52 AM CD T documented as of this encounter Care Teams Process Mold Technician Relationship Specialty Start Date End Date [facility] Medical PCP - General 09/21/21 [address] [address] [place], [place] [phone] [facility] 09/21/21 [address] [place] [address] [place] [address] documented as of this encounter
--- OUTSIDE RECORDS SUMMARY | 2021-12-07 20:39 | XMS_ITS | Encounter Summary ---
:1980 Author Organization [place] Address [address] [place] [address] Care Team Providers Name Role Phone [facility] Primary Care Provider [phone] Sada Cagle Unavailable [phone] Reason for Visit Auth/Cert Specialty Diagnoses / Procedures Referred By Contact Refer red To Contact Behavioral Health Ur Adult [facility] orth Blding [address], [address] [place] [address] Phone: Fax: Referral ID Status Reason Start Date Expiration Date Visits Requ ested Visits Authorized [id number] 1 1 Encounter Details Date Type Department Care Team Description 10/08/2021 Hospital Encounter [facility] Omar episode of major Addiction Services [address] depressive disorder [facility] without prior episode Blding [place], (H) (Primary Dx) [address] [place] [address] [address] [place], [place] (Work) [phone] Social History Tobacco Use [...] this encounter Miscellaneous Notes Group Note - Kathleen Grajeda LMFT - 10/08/2021 9:13 AM CDT Process Group Note PATIENT'S NAME: Augustus Ramirez Jr. : 1980 ACCT. NUMBER: [id number] DATE OF SERVICE: 10/08/21 START TIME: 9:00 AM END TIME: 9:50 AM ALTERATIONS EXPERT: Kathleen Grajeda LMFT TOPIC: Process Group Diagnoses: 296.32 (F33.1) Major Depressive Disorder, Recurrent Episode, Moderate, With anxious distress Alcohol Use Disorder 303.90 (F10.20) Moderate; 305.20 (F12.10) Cannabis Use Disorder Mild Provisional Diagnosis: Attention-Deficit/Hyperactivity Disorder 314.01 (F90.2) Combined presentationas evidenced by patient's report [facility] Adult Partial Hospitalization Program TRACK: 1 NUMBER OF PARTICIPANTS: 6 Service Modality: Video Visit Telemedicine Visit: The [...] Management, Personal Safety and Community Resources/Discharge Planning. Francisco reported feeling ???good, a little anxious but not as much as yesterday?? today. Patient identified the following goal(s) to work towards today: ???my mom is getting released from the hospital, so I want to go over there and move some stuff.?? Patient plans to use the following skills to achieve their goal: ???deep breathing and mindfulness.?? Patient anticipates the following barriers that may interfere with achieving their goal: ???I haven???t found any yet.?? Denies safety concerns, endorses chemical use (???I had a few cocktails after dinner last night?? ), reports this is a relaxing activity with his , ???I don???t take it too far.?? Reports taking their medications as prescribed. Patient reports feeling proud of/grateful for: ???we got our house stuff moved, I???m sore but it???s done.?? Patient asked for the following supports from the group today: ???we support each other every day.?? Declined additional processing time. Francisco received supportive feedback from the group. Therapeutic Interventions/Treatment Strategies: Psychotherapist offered support, feedback and validation, set limits, provided redirection and reinforced use of skills. Treatment modalities used include Motivational Interviewing, Cognitive Behavioral Therapy and Dialectical Behavioral Therapy. Interventions include Coping Skills: Discussed use of self- soothe skills to decrease distress in the body, Assisted patient in identifying 1-2 healthy distraction skills to reduce overall distress, Discussed how the use of intentional in the moment actions can help reduce distress and Assisted patient in understanding the purpose of planning / creating /participating / sharing in positive experiences and Mindfulness: Facilitated discussion of when/how to use mindfulness skills to benefit general health, mental health symptoms, and stressors and Encouraged a plan to use mindfulness skills in daily life. Assessment: Patient response: Patient responded to session by accepting feedback, giving feedback, listening, focusing on goals, being attentive, accepting support and verbalizing understanding Possible barriers to participation / learning include: and no barriers identified Health Issues: None reported Substance Use Review: Substance Use: alcohol . and Last use: last night Mental Status/Behavioral Observations Appearance: Appropriate Eye Contact: Fair Psychomotor Behavior: Normal Attitude: Cooperative Interested Friendly Pleasant Attentive Orientation: All Speech Rate / Production: Normal/ Responsive Normal Volume: Normal Mood: Anxious Normal Grieving Affect: Appropriate Worrisome Thought Content: Clear and Safety denies any current safety concerns including suicidal ideation, self-harm, and homicidal ideation Thought Form: Coherent Logical Insight: Good and Fair Plan: ??? Safety Plan: Committed to safety and agreed to follow previously developed safety coping plan. ??? Barriers to treatment: None identified ??? Patient Contracts (see media tab): None ??? Substance Use: Patient declined discussion at this time ??? Continue or Discharge: Patient will continue in Adult Partial Hospitalization Program (PHP) as planned. Patient is likely to benefit from learning and using skills as they work toward the goals identified in their treatment plan. DENNIS Garcia October 08, 2021 documented in this encounter Plan of Treatment Upcoming Encounters Date Type Specialty Care Team Description 12/10/2021 [place] [address] [place] [address] [phone] (James wan) 12/11/2021 [place] [address] [place] [id number] (James wan) 12/11/2021 Appointment Sarai Galindo MD [address], [place] [id number] (James wan) 12/13/2021 [place] [address] [place] [address] [phone] (James wan) 12/17/2021 Appointment Sarai Galindo MD [address], [place] [id number] (James wan) 12/18/2021 Appointment Behavioral Health Sarai Weaver MD [address] [place], [place] [id number] (Wo rk) documented as of this encounter Visit Diagnoses Diagnosis Current moderate episode of major depres sive disorder without prior episode (H) - Primary documented in this encounter Additional Health Concerns Assessment Noted Time PHQ-9 Depression Total Score: 14 09/30/2021 8:52 AM CD T documented as of this encounter Care Teams Interlocker Relationship Specialty Start Date End Date [facility] Medical PCP - General 09/21/21 [address] [place] [address] [facility] 09/21/21 [address] [address] documented as of this encounter
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
--- OUTSIDE RECORDS SUMMARY | 2021-12-07 20:39 | XMS_ITS | Encounter Summary ---
:1980 Author Organization [place] Address [address] [place] [address] Care Team Providers Name Role Phone [facility] Primary Care Provider [phone] Sada Cagle Unavailable [phone] Reason for Visit Mental Health Outpatient (Routine) - Pending Review Specialty Diagnoses / Procedures Referred By Contact Refer red To Contact Behavioral Health Procedures Ur Adult Mh Partial Ur Adult Mh Day Tx MH IOP (6A) [facility] [address], [address] [place], [place] [address] [address] [place], [place] Phone: [phone] Referral ID Status Reason Start Date Expiration Date Visits V isits Requested Authorized [id number] Pending 10/16/2021 10/16/2022 36 23 Review Encounter Details Date Type Department Care Team Description 11/05/2021 Hospital Encounter [facility] [address] [place], [place] [address] [address] [place], [place] [phone] (Work) [phone] Social History Tobacco Use Types Packs/Day Years [...] encounter Progress Notes Omar Weaver MD - 10/29/2021 4:42 PM CDT Acknowledgement of Current Treatment Plan I have reviewed my treatment plan with my therapist on 10/29/21. I agree with the plan as it is written in the electronic health record. (6A) Name: Signature: Augustus Ramirez Jr. Verbal ok given due to kathleen Weaver MD Psychiatrist/Light Truck Driver Omar Weaver MD on 11/05/2021 at 5:29 PM ADWOA Powesr Psychotherapist Sophie ORONA documented in this encounter Miscellaneous Notes Addendum Note - Sophie Santiago LICSW - 11/05/2021 4:45 PM CDT Encounter addended by: Sophie Santiago LICSW on: 11/05/2021 4:45 PM Actions taken: Clinical Note Signed Group Note - Roby Tejada LMFT - 11/05/2021 2:51 PM CDT Psychoeducation Group Note PATIENT'S NAME: Augustus Ramirez JrRichard : 1980 ACCT. NUMBER: [id number] DATE OF SERVICE: 11/05/21 START TIME: 11:00 AM END TIME: 11:50 AM HYDRAULIC DREDGE OPERATOR: Roby Tejada LMFT TOPIC: Wellness Group: [facility] Adult Mental Health Day Treatment TRACK: 6A NUMBER OF PARTICIPANTS: 4 Summary of Group / Topics Discussed: Specialty Health: Specialty Health: Anatomy of Trust: Watched and discussed BRAVING based on Maximilian Brown Anatomy of Trust The group reviewed the Be Good to Yourself handout and discussed ways to take more space in relationships for their self-care needs. Patient Session Goals / Objectives: ? Discussed BRAVING based on Bremerced Brown Anatomy of Trust ? Participants discussed ways in which trust, or lack of trust impacts mental health recovery ? Explored some ways trust is built/re-built with others and selves Service Modality: Video Visit Telemedicine Visit: The [...] group discussion and participation, Identified / Expressed personal readiness to practice skills and Verbalized understanding of the Trust topic Treatment Plan: Patient has an initial individualized treatment plan that was created as part of their diagnostic assessment / admission process. A master individualized treatment plan is in the process of being developed with the patient and multi- disciplinary care team. DENNIS Peterson Group Note - Sophie Santiago LICSW - 11/05/2021 12:20 PM CDT Psychotherapy Group Note PATIENT'S NAME: Augustus Ramirez Jr. : 1980 ACCT. NUMBER: [id number] DATE OF SERVICE: 11/05/21 START TIME: 10:00 AM END TIME: 10:50 AM HYDRAULIC DREDGE OPERATOR: Sophie Santiago LICSW TOPIC: MH EBP Group: Behavioral Activation [facility] Adult Mental Health Day Treatment TRACK: 6A Telemedicine Visit: The patient's condition can be safely assessed and treated via synchronous audioand visual telemedicine encounter. Reason for Telemedicine Visit: Services only offered telehealth Originating Site (Patient Location): Patient's home Distant Site (Provider Location): [facility]: [facility] Consent: The patient/guardian has verbally consented to: the potential risks and benefits of telemedicine (video visit) versus in person care; bill my insurance or make self-payment for services provided; and responsibility for payment of non-covered services. Mode of Communication: Video Conference via zoom As the provider I attest to compliance with applicable laws and regulations related to telemedicine. NUMBER OF PARTICIPANTS: 4 Summary of Group / Topics Discussed: Behavioral Activation: Motivation and Procrastination: Patients explored how they currently spend their time, identifying thoughts and feelings that are motivating and serve to increase desired behaviors. They also examined behaviors that contribute to procrastination. Different types of procrastination behaviors were identified, and strategies to reduce individual procrastination and increase motivation were explored and practiced. Patients identified ways to increase goal-directed activities to enhance mood and reduce symptoms. Patient Session Goals / Objectives: ?? Identify current patterns of procrastination behavior and how they influence thoughts and moods, and inhibit motivation. ?? Identify behaviors that can be implemented that contribute to improving thoughts and feelings, motivation, and reduce symptoms. ?? Identify and develop a plan to increase activities that promote a sense of accomplishment and competence. ?? Practice scheduling positive activities / behaviors into daily routines. Patient Participation / Response: Fully participated with the group by sharing personal reflections / insights and openly received / provided feedback with other participants. Demonstrated understanding of topics discussed through group discussion and participation and Expressed understanding of the relationship between behaviors, thoughts, and feelings Treatment Plan: Patient has a current master individualized treatment plan. See [facility] treatment plan for more information. ADWOA Powers Group Note - Sophie Santiago LICSW - 11/05/2021 12:19 PM CDT Process Group Note PATIENT'S NAME: Augustus Ramirez Jr. : 1980 ACCT. 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 Reason for Telemedicine Visit: Services only offered telehealth Originating Site (Patient Location): Patient's home Distant Site (Provider Location): [facility]: [facility] Consent: The patient/guardian has verbally consented to: [...] Management and Personal Safety. Pt reports feeling ok today, following a difficult day yesterday. He reports struggling last minute to prepare children to go back to school. Pt identifies using distraction to cope, adding that he always has house projects to work on. Pt feels guilty for being on a leave from work and feels like he is letting his team down there. Discussed ways to re-frame this. Pt denies safety concerns. Therapeutic Interventions/Treatment Strategies: Psychotherapist offered support, feedback and validation, provided redirection and reinforced use ofskills. Treatment modalities used include Cognitive Behavioral Therapy. Interventions include Cognitive Restructuring: Explored impact of ineffective thoughts / distortions on mood and activity and Assisted patient in identifying new neutral/positive core beliefs and Coping Skills: Discussed use of self-soothe skills to decrease distress in the body. Assessment: Patient response: Patient responded to session by accepting feedback, giving feedback, listening, focusing on goals, being attentive and accepting support Possible barriers to participation / learning include: and no barriers identified Health Issues: None reported Substance Use Review: Substance Use: alcohol and cannabis . and Last use: last night not too much Mental Status/Behavioral Observations Appearance: Appropriate Eye Contact: Good Psychomotor Behavior: Normal Attitude: Cooperative Orientation: All Speech Rate / Production: Normal Volume: Normal Mood: Anxious Depressed Affect: Worrisome Thought Content: Rumination Thought Form: [...] goals identified in their treatment plan. ADWOA Powers November 05, 2021 documented in this encounter Plan of Treatment Upcoming Encounters Date Type Specialty Care Team Description 12/10/2021 Appointment Sarai Galindo MD [address], [place] [address] ([place]) 12/11/2021 Appointment Sarai Galindo MD [address] [place], [place] [address] ([place] w[place]) 12/11/2021 Appointment Sarai Galindo MD [address], [place] [address] ([place]) 12/13/2021 Appointment Sarai Galindo MD [address], [place] [address] (Wo rk) 12/17/2021 Appointment Behavioral Health Sarai Weaver MD [address] [place] [address] (Wo rk) 12/18/2021 Appointment Behavioral Health Sarai Weaver MD [address] [place], [place] [address] (Wo rk) documented as of this encounter Visit Diagnoses Not on filedocumented in this encounter Additional Health Concerns Assessment Noted Time PHQ-9 Depression Total Score: 14 09/30/2021 8:52 AM CD T documented as of this encounter Care Teams Agronomy Teacher Relationship Specialty Start Date End Date [facility] PCP - General 09/21/21 [address] [place] [address] [facility] 09/21/21 [address] [facility] [place] [id number] documented as of this encounter
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
--- OUTSIDE RECORDS SUMMARY | 2021-12-07 20:39 | XMS_ITS | Encounter Summary ---
:1980 Author Organization [place] Address [address] [place] [address] Care Team Providers Name Role Phone [facility] Primary Care Provider [phone] Sada Cagle Unavailable [phone] Reason for Visit Mental Health Outpatient (Routine) - Pending Review Specialty Diagnoses / Procedures Referred By Contact Refer red To Contact Behavioral Health Procedures Ur Adult Mh Partial Ur Adult Mh Day Tx MH IOP (6A) [facility] [address], [address] [place], [place] [address] [address] [place], [place] Phone: [phone] Referral ID Status Reason Start Date Expiration Date Visits V isits Requested Authorized [id number] Pending 10/16/2021 10/16/2022 36 23 Review Encounter Details Date Type Department Care Team Description 10/25/2021 Hospital Encounter [facility] Demarco Weaver [facility] & MD Omar episode of major Addiction Services [address] depressive disorder [address] without prior episode [address] [place], (H) (Primary Dx) [facility] [id number] [phone] Social History Tobacco Use Types Packs/Day [...] this encounter Miscellaneous Notes Group Note - Dania Rayo LICSW - 10/25/2021 1:14 PM CDT Psychoeducation Group Note PATIENT'S NAME: Augustus Ramirez Jr. : 1980 [employer]. NUMBER: [id number] DATE OF SERVICE: 10/25/21 START TIME: 10:00 AM END TIME: 10:50 AM LEARNING AND DEVELOPMENT SPECIALIST: Dania Rayo LICSW TOPIC: MH Wellness Group: Health Maintenance Service Modality: Video Visit Telemedicine Visit: The [...] applicable laws and regulations related to telemedicine. [facility] Adult Mental Health Day Treatment TRACK: 6A NUMBER OF PARTICIPANTS: 4 Summary of Group / Topics Discussed: Health [...] discussed through group discussion and participation and Verbalized understanding of health maintenance topic Treatment Plan: Patient has a current master individualized treatment plan. See [facility] treatment plan for more information. ADWOA Harrell Group Note - Italia Alves LGSW - 10/25/2021 11:53 AM CDT Psychotherapy Group Note PATIENT'S NAME: Augustus Ramirez Jr. : 1980 [employer]. NUMBER: [id number] DATE OF SERVICE: 10/25/21 START TIME: 11:00 AM END TIME: 11:50 AM LEARNING AND DEVELOPMENT SPECIALIST: Italia Alves LGSW TOPIC: EBP Group: Behavioral Activation [facility] Adult Mental Health Day Treatment TRACK: 6A NUMBER OF PARTICIPANTS: 3 Summary of Group / Topics Discussed: Behavioral [...] positive activities / behaviors into daily routines. Service Modality: Video Visit Telemedicine Visit: The [...] related to telemedicine. Patient Participation / Response: Minimally participated, only when prompted / asked. Demonstrated understanding of topics discussed through group discussion and participation and Sharedexperiences and challenges with making behavioral changes Treatment Plan: Patient has a current master individualized treatment plan. See [facility] treatment plan for more information. MATEO Rodrigues Associated attestation - Gaby Ackerman LICSW - 10/28/2021 12:05 PM CDT Co-Sign: This progress note has been reviewed and approved by , FERNANDO Herrera LICSW, in accordance with the requirements for Clinical Supervision of Outpatient Mental Health Services. FERNANDO Herrera LICSW 10/28/2021 Group Note - Jessica Leavitt LMFT - 10/25/2021 10:09 AM CDT Process Group Note PATIENT'S NAME: Augustus Ramirez Jr. : 1980 [employer]. NUMBER: [id number] DATE OF SERVICE: 10/25/21 START TIME: 9:00 AM END TIME: 9:50 AM LEARNING AND DEVELOPMENT SPECIALIST: Jessica Leavitt LMFT TOPIC: Process Group Diagnoses: 296.32 (F33.1) Major Depressive Disorder, Recurrent Episode, Moderate, With anxious distress Attention-Deficit/Hyperactivity Disorder 314.01 (F90.2) Combined presentation Provisional Diagnoses: Alcohol Use Disorder 303.90 (F10.20) Moderate 305.20 (F12.10) Cannabis Use Disorder [facility] Mental Health Day Treatment TRACK: 6A NUMBER OF PARTICIPANTS: 4 Service Modality: Video [...] in this session included Symptom Management, Personal Safety, Community Resources/Discharge Planning and Develop / Improve Independent Living Skills. Patient reported feeling ???good?? today but anxious. Patient reported he has been working on unpacking boxes in his garage. Patient denied safety concerns. Patient reported having a few drinks and smoking marijuana after work. Patient reported he is proud of himself for getting a therapist that he is looking forward to meeting with. Patient reported he struggles to open up in group so he is hoping having individual therapy will help him open up better in group. Patient stated a goal today is to work on coming up with a list of things to discuss in individual therapy. Therapeutic Interventions/Treatment Strategies: Psychotherapist offered support, feedback and validation and reinforced use of skills. Treatment modalities used include Motivational Interviewing, Cognitive Behavioral Therapy and Dialectical Behavioral Therapy. Interventions include Behavioral Activation: Reinforced benefits/challenges of change process through applying skills to replace unwanted behaviors and Encouraged strategies to reduce individual procrastination and increase motivation by increasing goal- directed activities to enhance mood and reduce symptoms. and Relationship Skills: Assisted patients in implementing more effective communication skills in their relationships and Encouraged development and maintenance of healthy boundaries. Assessment: Patient response: Patient responded to session by accepting feedback, giving feedback, listening, focusing on goals, being attentive and accepting support Possible barriers to participation / learning include: and no barriers identified Health Issues: None reported Substance Use Review: Substance Use: Last use: 10/24/21 alcohol and cannabis Mental Status/Behavioral Observations Appearance: Appropriate Eye Contact: Good Psychomotor Behavior: Normal Attitude: Cooperative Orientation: All Speech Rate / Production: Normal Volume: Normal Mood: Normal Affect: Appropriate Thought Content: Clear Thought Form: Coherent Logical Insight: Fair Plan: ??? Safety Plan: No [...] goals identified in their treatment plan. DENNIS Mg October 25, 2021 documented in this encounter Plan of Treatment Upcoming Encounters Date Type Specialty Care Team Description 12/10/2021 Appointment Sarai Galindo MD [address] [place], [place] [address] (James wan) 12/11/2021 Appointment Sarai Galindo MD [address] [place], [place] [address] (James wan) 12/11/2021 Appointment Sarai Galindo MD [address] [place], [place] [address] (James wan) 12/13/2021 Appointment Sarai Galindo MD [address] [place], [place] [address] (James wan) 12/17/2021 Appointment Sarai Galindo MD [address] [place], [place] [address] (Wo rk) 12/18/2021 Appointment Behavioral Health Sarai Weaver MD [address] [place] [address] (Wo rk) documented as of this encounter Visit Diagnoses Diagnosis Current moderate episode of major depres sive disorder without prior episode (H) - Primary documented in this encounter Additional Health Concerns Assessment Noted Time PHQ-9 Depression Total Score: 14 09/30/2021 8:52 AM CD T documented as of this encounter Care Teams Hand Spray Operator Relationship Specialty Start Date End Date [facility] Medical PCP - General 09/21/21 [address] [place] [address] S[facility] 09/21/21 [address] [place] [id number] documented as of this encounter
--- OUTSIDE RECORDS SUMMARY | 2021-12-07 20:39 | XMS_ITS | Encounter Summary ---
:1980 Author Organization [place] Address [address] [place] [address] Care Team Providers Name Role Phone [facility] Primary Care Provider [phone] Sada Cagle Unavailable [phone] Reason for Visit Auth/Cert Specialty Diagnoses / Procedures Referred By Contact Refer red To Contact Behavioral Health Ur Adult Mh Pa rtial [facility] orth [address]ing [address], [address] [place] [address] Phone: Fax: Referral ID Status Reason Start Date Expiration Date Visits Requ ested Visits Authorized [id number] 1 1 Encounter Details Date Type Department Care Team Description 10/16/2021 Hospital Encounter [facility] Demarco Weaver [facility] MD Omar episode of major Addiction Services [address] depressive disorder [facility] without prior episode Blding [place], (H) (Primary Dx) [address] [place] [address] [address] [place], [place] (Work) [phone] Social History Tobacco Use [...] Group Note - Roby Tejada LMFT - 10/16/2021 11:48 PM CDT Psychotherapy Group Note PATIENT'S NAME: Augustus Ramirez Jr. : 1980 [employer]. NUMBER: [id number] DATE OF SERVICE: 10/16/21 START TIME: 2:00 PM END TIME: 2:50 PM GLASS OR MIRROR INSPECTOR: Roby Tejada LMFT TOPIC: EBP Group: Coping Skills [facility] Adult Partial Hospitalization Program TRACK: [facility] NUMBER OF PARTICIPANTS: 7 Summary of Group / Topics Discussed: Coping [...] / provided feedback with other participants. Francisco received well wishes from the group on his [facility] graduation day. Demonstrated understanding of topics discussed through group discussion and participation, Expressedunderstanding of the relevance / importance of coping skills at distressing times in life, Practiced2-3 new coping skills in session and Identified / Expressed personal readiness to practice new coping skills Treatment Plan: Patient has See [facility] Treatment Plan - Patient is discharging. DENNIS Peterson Group Note - Adelaide Morris OTR/L - 10/16/2021 1:58 PM CDT OT Clinic Group Note PATIENT'S NAME: [facility] Jr. : 1980 [facility]: [id number] DATE OF SERVICE: 10/16/21 START TIME: 1:00 PM END TIME: 1:50 PM GLASS OR MIRROR INSPECTOR: Adelaide Morris OTR/L TOPIC: [facility] OT Group: Occupational Therapy Clinic [facility] Adult Partial Hospitalization Program TRACK: [facility] NUMBER OF PARTICIPANTS: 6 Service Modality: Video [...] applicable laws and regulations related to telemedicine. Summary of Group / Topics Discussed: Occupational Therapy Clinic: Provided opportunity for patients to independently choose and engage surya therapeutic activity that supports progress towards their goals and psychiatric recovery. The Occupational Therapy Clinic provides a context for patients to monitor their symptoms, gain self-awareness, practice skills (self-regulation, mindfulness, self-talk, focus/concentration, social, productivity), build a sense of self efficacy and mastery, as well as receive validation, support, and resources. OT checks in, observes, assesses, and monitors performance skills and patterns in context with eachgroup member. Patient was provided orientation to the OT clinic and overview of purpose of the OT clinic in support of meeting their goals. Patient Session Goals / Objectives: ??? Independently identify a purposeful and meaningful therapeutic activity. ??? Identified which goal(s) they are intentionally working on during session. ??? Reflected on their performance and share insight about their progress. ??? Practiced and identified a way to generalize a skill to their everyday life Patient Participation / Response: Fully participated with the group by sharing personal reflections / insights and openly received / provided feedback with other participants. Patient presentation: congruent, demonstrated understanding of topic through discussion and participation in activities. Pt shared engaging in leisure activity. Treatment Plan: Patient has a current master individualized treatment plan. See [facility] treatment plan for more information. MADI Liriano Group Note - Estefania Ellis OTR/L - 10/16/2021 1:13 PM CDT Psychoeducation Group Note PATIENT'S NAME: Augustus Ramirez Jr. : 1980 [employer]. NUMBER: [id number] DATE OF SERVICE: 10/16/21 START TIME: 11:00 AM END TIME: 11:50 AM GLASS OR MIRROR INSPECTOR: Estefania Ellis OTR/L TOPIC: [facility] OT Group: Lifestyle Balance and Structure [facility] Adult Partial Hospitalization Program TRACK: 1 NUMBER OF PARTICIPANTS: 9 Service Modality: Video Visit Telemedicine Visit: The patient's condition can be safely assessed and treated via synchronous audioand visual telemedicine encounter. Reason for Telemedicine Visit: Services only offered telehealth Originating Site (Patient Location): Patient's home Distant Site (Provider Location): [facility] Outpatient Setting: Partial Hospitalization Program, [facility] Consent: The patient/guardian has verbally consented to: [...] applicable laws and regulations related to telemedicine. Summary of Group / Topics Discussed: Lifestyle Balance and Structure: Occupational Gifts: Patients were given the opportunity to reflect and identified different types of occupations (activities) they participate in to maintain and/or build resilience in their lives. Patients were taught about how doing promotes mental health recovery by providing, routine and structure, empowerment, sense of self, and connectedness. Patients identified occupations (activities) that promote mental health: connection, centering, creation, contemplation, and contribution. Patients were also given the opportunity to improve self efficacy, self sufficiency, quality of life and a sense of mastery and competency by identifying positive aspects of their life and to instill hope. Patient Session Goals / Objectives: ?? Identified occupations (activities) they can use to promote mental health recovery and as a way to effectively manage both mental health and substance abuse/abuse symptoms ?? Improved awareness of positive qualities of occupations they currently participate in and new occupations they might try and how this contribute to the process of recovery and mental health wellbeing and resiliency ?? Established a plan for practice of these skills in their own environments ?? Practiced and reflected on how to generalize taught skills to their everyday life Patient Participation / Response: Fully participated with the group by sharing personal reflections / insights and openly received / provided feedback with other participants. Patient presentation: constricted affect that brightened at times; active in discussion; no safety concerns reported, Verbalized understanding of content and Patient would benefit from additional opportunities to practice the content to be able to generalize it to their everyday life with increased intentionality, consistency, and efficacy in support of their psychiatric recovery Treatment Plan: Patient has See [facility] Treatment Plan - Patient is discharging. See discharge summary for additional information. Francisco will start the track on 10/18/2021 for additional support and treatment. Estefania Ellis, OTR/L Group Note - Belkis Leonard RN - 10/16/2021 12:11 PM CDT Psychoeducation Group Note PATIENT'S NAME: Augustus Ramirez Jr. : 1980 [employer]. NUMBER: [id number] DATE OF SERVICE: 10/16/21 START TIME: 10:00 AM END TIME: 10:50 AM GLASS OR MIRROR INSPECTOR: Belkis Leonard RN TOPIC: Wellness Group: Brain Health [facility] Adult Partial Hospitalization Program TRACK: [facility] NUMBER OF PARTICIPANTS: 9 Summary of Group / Topics Discussed: Brain Health: Pathophysiology of stress and anxiety: Patients were educated on the difference between stress, chronic stress, and anxiety. The anatomy and pathophysiology of the body/brain were reviewed to illustrate the immediate effects of stress/anxiety in the body and the vermin exterminator effects and increased risks for chronic disease that come from unmanaged stress/anxiety. Self-coping strategies to manage symptoms of stress were reviewed and pharmacologic, psychotherapeutic, and complementary treatment options were discussed. Patient Session Goals / Objectives: ? Described the differences between stress and anxiety and how the body responds to it ? Listed the vermin exterminator effects and increased risks for chronic disease that can arise from unmanagedstress/anxiety ? Identified and described pharmacologic, psychotherapeutic, and complementary treatment options Service Modality: Video Visit Telemedicine Visit: The [...] related to telemedicine. Patient Participation / Response: Moderately participated, sharing some personal reflections / insights and adequately adequately received / provided feedback with other participants. Verbalized understanding of brain health topic Treatment Plan: Patient has a current master individualized treatment plan. See [facility] treatment plan for more information. Belkis Leonard RN Group Note - Kathleen Grajeda LMFT - 10/16/2021 9:14 AM CDT Process Group Note PATIENT'S NAME: Augustus Ramirez Jr. : 1980 AC[employer]. NUMBER: [id number] DATE OF SERVICE: 10/16/21 START TIME: 9:00 AM END TIME: 9:50 AM GLASS OR MIRROR INSPECTOR: Kathleen Grajeda LMFT TOPIC: Process Group Diagnoses: 296.32 (F33.1) Major Depressive Disorder, Recurrent Episode, Moderate, With anxious distress Alcohol Use Disorder 303.90 (F10.20) Moderate; 305.20 (F12.10) Cannabis Use Disorder Mild Provisional Diagnosis: Attention-Deficit/Hyperactivity Disorder 314.01 (F90.2) Combined presentationas evidenced by patient's report [facility] Adult Partial Hospitalization Program TRACK: 1 NUMBER OF PARTICIPANTS: 4 Service Modality: Video [...] and Community Resources/Discharge Planning. Francisco reported feeling ???a little anxious, the group is ending and I???ve become attached to everyone in the group, its going to be a bummer tomorrow morning when I don???t come here.?? Patient identified the following goal(s) to work towards today: ???I???m still feeling a little bit of guilt and shame, I gotta keep working on that and the negative talk.?? Patient plans to use the following skillsto achieve their goal: ???opposite action, I did it once yesterday and the positive affirmations, and the cold water on my wrists and hands has helped.?? Identified the following affirmations, ???I ama nice person, I am capable of receiving love, my feelings are valid, I am awesome to be around.?? Patient anticipates the following barriers that may interfere with achieving their goal: ???myself more than anything.?? Denies safety concerns, endorses chemical use (???a couple of cocktails last night?? ), and reports taking their medications as prescribed. Patient reports feeling proud of/gratefulfor: ???finishing the first step towards my recovery with this program.?? Patient asked for the following supports from the group today: ???feedback.?? Declined additional process. Francisco received supportive feedback from the group. Therapeutic Interventions/Treatment Strategies: Psychotherapist offered support, feedback and validation, set limits, provided redirection and reinforced use of skills. Treatment modalities used include Motivational Interviewing, Cognitive Behavioral Therapy and Dialectical Behavioral Therapy. Interventions include Behavioral Activation: Reinforced benefits/challenges of change process through applying skills to replace unwanted behaviors, Cognitive Restructuring: Explored impact of ineffective thoughts / distortions on mood and activity, Coping Skills: Discussed use of self-soothe skills to decrease distress in the body, Assisted patient in iden tifying 1-2 healthy distraction skills to reduce overall distress, Discussed how the use of intentional in the moment actions can help reduce distress and Assisted patient in understanding the purpose of planning / creating / participating / sharing in positive experiences, Symptoms Management: Promoted understanding of their diagnoses and how it impacts their functioning, Emotions Management: Reinforced the purpose and biological basis of emotions, Reviewed opposite action skill and Increased awareness of daily mood patterns/changes and Relationship Skills: Discussed strategies to promote healthier understanding of interpersonal relationships. Assessment: Patient response: Patient responded to session by accepting feedback, giving feedback, listening, focusing on goals, being attentive, accepting support, demonstrating behavior change and verbalizing understanding Possible barriers to participation / learning include: and no barriers identified Health Issues: None reported Substance Use Review: Substance Use: alcohol . and Last use: a few cocktails last night Mental Status/Behavioral Observations Appearance: Appropriate Eye Contact: Fair Psychomotor Behavior: Normal Attitude: Cooperative Interested Friendly Pleasant Attentive Orientation: All Speech Rate / Production: Normal/ Responsive Normal Volume: Normal Mood: Anxious Depressed Irritable Normal Affect: Appropriate Worrisome Thought Content: Rumination and Safety denies any current safety concerns including suicidal ideation, self-harm, and homicidal ideation Thought Form: Coherent Logical Insight: Good and Fair Plan: ??? Safety Plan: Committed to safety and agreed to follow previously developed safety coping plan. ??? Barriers to treatment: None identified ??? Patient Contracts (see media tab): None ??? Substance Use: Patient declined discussion at this time ??? Not addressed in session ??? Continue or Discharge: Patient will continue in Adult Partial Hospitalization Program (PHP) as planned. Patient is likely to benefit from learning and using skills as they work toward the goals identified in their treatment plan. DENNIS Garcia October 16, 2021 documented in this encounter Plan of Treatment Upcoming Encounters Date Type Specialty Care Team Description 12/10/2021 [place] [address] [place] [phone] (James wan) 12/11/2021 Appointment Sarai Galindo MD [address], [place] [address] (James wan) 12/11/2021 Appointment Sarai Galindo MD [address] [place] [phone] (James wan) 12/13/2021 Appointment Sarai Galindo MD [address], [place] [phone] (James wan) 12/17/2021 Appointment Behavioral Health Sarai Weaver MD [address] [place], [place] [phone] (Wo rk) 12/18/2021 Appointment Behavioral Health Sarai Weaver MD [address] [place], [place] [address] (Wo rk) documented as of this encounter Visit Diagnoses Diagnosis Current moderate episode of major depres sive disorder without prior episode (H) - Primary documented in this encounter Additional Health Concerns Assessment Noted Time PHQ-9 Depression Total Score: 14 09/30/2021 8:52 AM CD T documented as of this encounter Care Teams Press Tender Smoke Signal Relationship Specialty Start Date End Date [facility] Medical PCP - General 09/21/21 [address] [place] [address] Sada [facility] 09/21/[address] [place] [address] documented as of this encounter
--- OUTSIDE RECORDS SUMMARY | 2021-12-07 20:39 | XMS_ITS | Encounter Summary ---
:1980 Author Organization [facility] Address [address] [place] [address] Care Team Providers Name Role Phone [facility] Primary Care Provider [phone] Sada Cagle Unavailable [phone] Reason for Visit Auth/Cert Specialty Diagnoses / Procedures Referred By Contact Refer red To Contact Behavioral Health Ur Adult M[facility] [address], [address] [place] [address] Phone: Fax: Referral ID Status Reason Start Date Expiration Date Visits Requ ested Visits Authorized [id number] 1 1 Encounter Details Date Type Department Care Team Description 10/10/2021 Hospital Encounter [facility] Demarco Weaver [facility] Mental Health & MD Omar episode of major Addiction Services [address] depressive disorder [facility] without prior episode Blding [place], (H) (Primary Dx) [address] [place] [address] [address] [place], [place] (Work) [address] Social History Tobacco Use [...] encounter Progress Notes Omar Weaver MD - 10/10/2021 2:02 PM CDT [facility] Out[facility] Programs Provider Interval History Note Program: [facility] Program Track: 1 PATIENT'S NAME: Augustus Ramirez Jr. : 1980 ACCT. NUMBER: [id number] DATE OF SERVICE: 10/10/21 CALL/VIDEO START TIME: 1403 CALL/VIDEO END TIME: 1420 Interval History: Very good. Francisco presents today for follow-up and ongoing program supervision. Endorses: ??? Anxious, relieved about mother coming to stay with him ??? Feels he's learning good skills, deep breathing, mindfulness in particular ??? Hoping to step down ??? On Thursday had to miss group, preparing for his mother to move in with him, etc. o Had all the bad feeling in the chest and the head, it reared its head, had brief flash of suicidal ideation similar to presenting events in his garage o I called and I talked to my for pretty much all of the drive home, no actions or safety concerns, felt he got the necessary support through the crisis Symptoms: ??? improving Substance use: ??? It's the same o I feel it's under control Reactions/thoughts about program: ??? I like the group a lot Risk Assessment: ??? Suicidal ideation: brief flash as noted above, none otherwise since last visit ??? Thoughts of non-suicidal self-injury: denied ??? [...] by mouth daily The above list was discussed briefly with patient today. Patient is taking medications as prescribed and denies adverse effects. Laboratory Results: Most recent labs reviewed. Pertinent [...] Francisco presents today for follow up. Endorses tremendous benefit from time spent in the partial hospital program. Able to identify and use skills, was able to manage being overwhelmed with flashes of suicidal ideation following recent stressors. Continues to benefit from this level of care, continues tomeet criteria for this level of care. Given the above, no indication for change in medication today. ??? Depression o Overall improved o Still quite symptomatic with recent episode of passive suicidal ideation o Continues to benefit from treatment o No indication for medications today given improvement o Continue partial hospital program ??? ADHD o Overall stable o No indication for changes to management o Continue plan per above ??? Alcohol, cannabis use o Overall stable o Continue to monitor Continue all other medications as reviewed per electronic medical record today Continue therapy as planned: ??? Enrolled in Partial Hospital Program ??? Continues to benefit from services ??? [...] or call after hours crisis line at [phone] or [phone]. [place] Crisis Text Line: Text [place] to 516207 or Suicide LifeLine Chat: suicidepreventionlifeline.org/chat Follow-up: ??? schedule an appointment with me or another program provider in approximately in 1 week(s) or sooner if needed. Can speak with a staff member or call the appropriate program number (see below) to schedule ??? Follow up with outpatient provider(s) as planned or sooner if needed for acute medical concerns. Questions or concerns: ??? Call program line with questions or concerns (see below) ??? Conecta 2 may be used to communicate with your provider, but this is not intended to be used for emergencies. [facility] Adult [facility] Health Program lines: [facility]: [phone] Dual Disorder: [phone] Adult Day Treatment: [phone] 55+/Intensive Outpatient: [phone] Community Resources: National Suicide Prevention Lifeline: 988 from any phone, or 101-757-8527 (TTY: 820.965.4826). Call anytime for help. (www.suicidepreventionlifeline.org) National [place] on Mental Illness (www.nasreen.org): 304.361.1785 or 001-203-6028. Mental Health Association (www.mentalhealth.org): 676.649.6988 or 702-940-0200. [place] Crisis Text Line: Text [place] to 997844 Suicide LifeLine Chat: suicideW.S.C. Sports.org/chat Treatment Objective(s) Addressed in This Session: The purpose of today's virtual visit is for this medical underwriter to provide oversight of patient's care whilereceiving program services. Specific treatment goals addressed included personal safety, symptoms stabilization and management, wellness and mental health, and community resources/discharge planning. This author or another program provider will follow up with the patient as noted above. Patient agrees with the current plan of care. Omar Weaver MD 10/10/21 Visit Details: Type of service: Video Visit Start/End Time: see above Originating Location (pt. Location): Home in [place] Distant Location (provider location): Provider Remote Setting- Home Office Platform used for Video Visit: Zoom Physician has received verbal consent for a Video Visit from the patient? Yes 25 minutes spent on the date of the encounter doing chart review, patient visit, documentation and discussion with other provider(s) This document completed in part using DailyLook dictation software. Please excuse any inadvertent word or phrase substitutions. documented in this encounter Plan of Treatment Upcoming Encounters Date Type Specialty Care Team Description 12/10/2021 Appointment Sarai Galindo MD [address] [place], [place] [phone] (Wo rk) 12/11/2021 Appointment Sarai Galindo MD [address] [place], [place] [address] (Wo rk) 12/11/2021 Appointment Sarai Galindo MD [address] [place], [place] [phone] (Wo rk) 12/13/2021 Appointment Sraai Galindo MD [address] [place], [place] [phone] (Wo rk) 12/17/2021 Appointment Sarai Galindo MD [address] [place] [phone] (Wo rk) 12/18/2021 Appointment Sarai Galindo MD [address] [place] [address] [phone] (Wo rk) documented as of this encounter Visit Diagnoses Diagnosis Current moderate episode of major depres sive disorder without prior episode (H) - Primary documented in this encounter Additional Health Concerns Assessment Noted Time PHQ-9 Depression Total Score: 14 09/30/2021 8:52 AM CD T documented as of this encounter Care Teams Typewriter Aligner Relationship Specialty Start Date End Date [facility] Medical PCP - General 09/21/21 [address] [place] [address] Sada Cagle [facility] 09/21/21 [address] [place] [address] documented as of this encounter
--- OUTSIDE RECORDS SUMMARY | 2021-12-07 20:39 | XMS_ITS | Encounter Summary ---
:1980 Author Organization [facility] Address [address] [place] [address] Care Team Providers Name Role Phone [facility] Primary Care Provider [phone] Sada Cagle Unavailable [phone] Reason for Visit Mental Health Outpatient (Routine) - Pending Review Specialty Diagnoses / Procedures Referred By Contact Refer red To Contact Behavioral Health Procedures Ur Adult Mh Partial Ur Adult Mh Day Tx MH IOP (6A) [facility] [address], [place], [place] [address] [address] [place], [place] Phone: [phone] Referral ID Status Reason Start Date Expiration Date Visits V isits Requested Authorized [id number] Pending 10/16/2021 10/16/2022 36 23 Review Encounter Details Date Type Department Care Team Description 10/18/2021 Hospital Encounter [facility] Demarco Weaver [facility] & MD Omar episode of major Addiction Services [address] depressive disorder [address] without prior episode [address] [place], (H) (Primary Dx) [facility] [id number] [phone] Social History Tobacco Use Types Packs/Day [...] Group Note - Sophie Santiago LICSW - 10/18/2021 1:56 PM CDT Psychoeducation Group Note PATIENT'S NAME: Augustus Ramirez JrRichard : 1980 ACCT. NUMBER: [id number] DATE OF SERVICE: 10/18/21 START TIME: 11:00 AM END TIME: 11:50 AM BIOLOGICAL INSPECTOR: Sophie Santiago LICSW TOPIC: MH Wellness Group: Health Maintenance [facility] Adult Mental Health Day Treatment TRACK: 6A Telemedicine Visit: The patient's condition can be safely assessed and treated via synchronous audioand visual telemedicine encounter. Reason for Telemedicine Visit: Services only offered telehealth Originating Site (Patient Location): Patient's home Distant Site (Provider Location): [facility] [facility] [place]: The patient/guardian has verbally consented to: the potential risks and benefits of telemedicine (video visit) versus in person care; bill my insurance or make self-payment for services provided; and responsibility for payment of non-covered services. Mode of Communication: Video Conference via zoom As the provider I attest to compliance with applicable laws and regulations related to telemedicine. NUMBER OF PARTICIPANTS: 7 Summary of Group / Topics Discussed: Health [...] to practice skills Treatment Plan: Patient has an initial individualized treatment plan that was created as part of their diagnostic assessment / admission process. A master individualized treatment plan is in the process of being developed with the patient and multi- disciplinary care team. ADWOA Self Group Note - Sophie Santiago LICSW - 10/18/2021 1:51 PM CDT Psychotherapy Group Note PATIENT'S NAME: Augustus Ramirez Jr. : 1980 ACCT. NUMBER: [id number] DATE OF SERVICE: 10/18/21 START TIME: 10:00 AM END TIME: 10:50 AM BIOLOGICAL INSPECTOR: Sophie Santiago LICSW TOPIC: EBP Group: Cognitive Restructuring [facility] Adult Mental Health Day Treatment TRACK: 6 Telemedicine Visit: The patient's condition can be safely assessed and treated via synchronous audioand visual telemedicine encounter. Reason for Telemedicine Visit: Services only offered telehealth Originating Site (Patient Location): Patient's home Distant Site (Provider Location[place] [facility] [facility] [place]: The patient/guardian has verbally consented to: the potential risks and benefits of telemedicine (video visit) versus in person care; bill my insurance or make self-payment for services provided; and responsibility for payment of non-covered services. Mode of Communication: Video Conference via zoom As the provider I attest to compliance with applicable laws and regulations related to telemedicine. NUMBER OF PARTICIPANTS: 6 Summary of Group / Topics Discussed: Cognitive Restructuring: Distortions part 2: Patients received an overview of how to identify commoncognitive distortions. Patients will explore alternatives to cognitive distortions and practice challenging their negative thought patterns. The goal is to help patients target modify ineffective thought patterns. Patient Session Goals / Objectives: ??? Familiarized self with ineffective / unhealthy thoughts and how they develop. ??? Explored impact of ineffective thoughts / distortions on mood and activity ??? Formulated new neutral/positive alternatives to challenge less helpful / ineffective thoughts. ??? Practiced and plan to apply in daily life Patient Participation / Response: Moderately participated, sharing some personal reflections / insights and adequately adequately received / provided feedback with other participants. Demonstrated understanding of topics discussed through group discussion and participation and Expressed understanding of the relationship between behaviors, thoughts, and feelings Treatment Plan: Patient has an initial individualized treatment plan that was created as part of their diagnostic assessment / admission process. A master individualized treatment plan is in the process of being developed with the patient and multi- disciplinary care team. ADWOA Self Group Note - Sophie Santiago LICSW - 10/18/2021 12:09 PM CDT Process Group Note PATIENT'S NAME: Augustus Ramriez Jr. : 1980 ACCT. 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 Reason for Telemedicine Visit: Services only offered telehealth Originating Site (Patient Location): Patient's home Distant Site (Provider Location): [facility] [facility] [place]: The patient/guardian has verbally consented to: the potential risks and benefits of telemedicine (video visit) versus in person care; bill my insurance or make self-payment for services provided; and responsibility for payment of non-covered services. Mode of Communication: Video Conference via zoom As the provider I attest to compliance with applicable laws and regulations related to telemedicine. NUMBER OF PARTICIPANTS: 6 Data: Session content: At the start of this group, patients were invited to check in by identifying themselves, describing their current emotional status, and identifying issues to address in this group. Area(s) of treatment focus addressed in this session included Symptom Management and Personal Safety. Pt is welcomed and oriented to group on this his first day in the program. He reports a struggle with depression, anxiety, guilt, shame and adhd. He is grateful that his mother has now moved in with him, his and their 3 kids. Pt shares that his mother has stage 4 cancer and was to far away before. He identifies distraction as a coping skill. Denies safety concerns. Therapeutic Interventions/Treatment Strategies: Psychotherapist offered support, feedback and validation and reinforced use of skills. Treatment modalities used include Cognitive Behavioral Therapy. Interventions include Cognitive Restructuring: Assisted patient in identifying new neutral/positive core beliefs and Coping Skills: Discussed use of self- soothe skills to decrease distress in the body. Assessment: Patient response: Patient responded to session by accepting feedback, listening, focusing on goals, being attentive and accepting support Possible barriers to participation / learning include: and no barriers identified Health Issues: None reported Substance Use Review: Substance Use: alcohol and cannabis . and Last use: last night I had a few cocktails and some thc.this used to be a problem, but not anymore Mental Status/Behavioral Observations Appearance: Appropriate Eye Contact: Good Psychomotor Behavior: Normal Attitude: Cooperative Orientation: All Speech Rate / Production: Normal Volume: Normal Mood: Anxious Depressed Normal Affect: Worrisome Thought Content: Clear Thought Form: Coherent Insight: Good Plan: ??? [...] identified in their treatment plan. ADWOA Self October 18, 2021 documented in this encounter Plan of Treatment Upcoming Encounters Date Type Specialty Care Team Description 12/10/2021 Appointment Sarai Galindo MD [address] [place] [phone] (Wo rk) 12/11/2021 Appointment Sarai Galindo MD [address] [place] [phone] (Wo rk) 12/11/2021 [place] [address] [place] [phone] (Wo rk) 12/13/2021 [place] [address] [place] [phone] (Wo rk) 12/17/2021 [place] [address] [place] [phone] (Wo rk) 12/18/2021 [place] [address] [place] [address] [phone] (Wo rk) documented as of this encounter Visit Diagnoses Diagnosis Current moderate episode of major depres sive disorder without prior episode (H) - Primary documented in this encounter Additional Health Concerns Assessment Noted Time PHQ-9 Depression Total Score: 14 09/30/2021 8:52 AM CD T documented as of this encounter Care Teams Heel Seat Flap Stapler Relationship Specialty Start Date End Date [facility] PCP - General 09/21/21 [address] [place] [address] Sada Cagle [facility] 09/21/21 [address] [place] [phone] documented as of this encounter
--- OUTSIDE RECORDS SUMMARY | 2021-12-07 20:39 | XMS_ITS | Encounter Summary ---
:1980 Author Organization [place] Address [address] [place] [address] Care Team Providers Name Role Phone [facility] Primary Care Provider [phone] Sada Cagle Unavailable [phone] Reason for Visit Mental Health Outpatient (Routine) - Pending Review Specialty Diagnoses / Procedures Referred By Contact Refer red To Contact Behavioral Health Procedures Ur Adult Mh Partial Ur Adult Mh Day Tx MH IOP (6A) [facility] [address], [address] [place], [place] [address] [address] [place], [place] Phone: [phone] Referral ID Status Reason Start Date Expiration Date Visits V isits Requested Authorized [id number] Pending 10/16/2021 10/16/2022 36 23 Review Encounter Details Date Type Department Care Team Description 10/29/2021 Hospital Encounter [facility] Demarco Weaver [facility] & MD Omar episode of major Addiction Services [address] depressive disorder [address] without prior episode [address] [place], (H) (Primary Dx) [facility] [id number] [phone] Social History Tobacco Use Types Packs/Day [...] Team Description 12/10/2021 Appointment Sarai Galindo MD [address] [place] [phone] (Wo rk) 12/11/2021 Appointment Sarai Galindo MD [address] [place] [phone] (Wo rk) 12/11/2021 Appointment Sarai Galindo MD [address] [place] [phone] (Wo rk) 12/13/2021 Appointment Sarai Galindo MD [address] [place] [phone] (Wo rk) 12/17/2021 Appointment Sarai Galindo MD [address] [place] [phone] (Wo rk) 12/18/2021 Appointment Sarai Galindo MD [address] [place] [address] [phone] (Wo rk) documented as of this encounter Visit Diagnoses Diagnosis Current moderate episode of major depres sive disorder without prior episode (H) - Primary documented in this encounter Additional Health Concerns Assessment Noted Time PHQ-9 Depression Total Score: 14 09/30/2021 8:52 AM CD T documented as of this encounter Care Teams Security Operations Engineer Relationship Specialty Start Date End Date [facility] Medical PCP - General 09/21/21 [address] [place], [place] [phone] Sada Cagle [facility] 09/21/21 [address] [place] [address] [place] [address] documented as of this encounter
--- OUTSIDE RECORDS SUMMARY | 2021-12-07 20:39 | XMS_ITS | Encounter Summary ---
:1980 Author Organization [facility] Address [address] [place] [address] Care Team Providers Name Role Phone [facility] Primary Care Provider [phone] Sada Cagle Unavailable [phone] Reason for Visit Mental Health Outpatient (Routine) - Pending Review Specialty Diagnoses / Procedures Referred By Contact Refer red To Contact Behavioral Health Procedures Ur Adult Mh Partial Ur Adult Mh Day Tx MH IOP (6A) [facility] [address], [address] [place], [place] [address] [address] [place], [place] Phone: [phone] Referral ID Status Reason Start Date Expiration Date Visits V isits Requested Authorized [id number] Pending 10/16/2021 10/16/2022 36 23 Review Encounter Details Date Type Department Care Team Description 11/06/2021 Hospital Encounter [facility] Demarco Weaver [facility] & MD Omar episode of major Addiction Services [address] depressive disorder [address] without prior episode [address] [place], (H) (Primary Dx) [facility] [id number] [phone] Social History Tobacco Use Types Packs/Day [...] Group Note - Roby Tejada LMFT - 11/06/2021 4:30 PM CDT Psychotherapy Group Note PATIENT'S NAME: Augustus Ramirez Jr. : 1980 ACCT. NUMBER: [id number] DATE OF SERVICE: 11/06/21 START TIME: 11:00 AM END TIME: 11:50 AM SENIOR MOBILE WEB DEVELOPER: Roby Tejada LMFT TOPIC: MH EBP Group: Relationship Skills [facility] Adult Mental Health Day Treatment TRACK: 6A NUMBER OF PARTICIPANTS: 5 Summary of Group / Topics Discussed: Relationship Skills: Basic Communication: Patients were provided with a general overview of interpersonal communication skills and information about how communication skills impact symptoms and functioning. The goal of this topic is to help patients identify communication issues and gain skills to work towards healthier interpersonal communication. Patients reviewed their current awareness of communication issues and how communication skills impact relationships and functioning. Patient Session Goals / Objectives: ??? Identified and discussed patients individual challenges with basic communication ??? Presented and practiced effective communication skills in session ??? Assisted patients in implementing more effective communication skills in their relationships Service Modality: Video Visit Telemedicine Visit: The [...] group discussion and participation, Demonstrated understanding of relationship skills and communication skills, Identified / Expressed personal readiness to incorporate effective communication skills and Practiced skills in session Treatment Plan: Patient has a current master individualized treatment plan. See [facility] treatment plan for more information. DENNIS Peterson Group Note - Roby Tejada LMFT - 11/06/2021 4:08 PM CDT Psychotherapy Group Note PATIENT'S NAME: Augustus Ramirez Jr. : 1980 ACCT. NUMBER: [id number] DATE OF SERVICE: 11/06/21 START TIME: 10:00 AM END TIME: 10:50 AM SENIOR MOBILE WEB DEVELOPER: Roby Tejada LMFT TOPIC: EBP Group: Relationship Skills [facility] Adult Mental Health Day Treatment TRACK: 6A NUMBER OF PARTICIPANTS: 5 Summary of Group / Topics Discussed: Relationship Skills: Relationship Mapping: Patients identified different types of relationships theyhave in their life and examined if there is conflict or closeness, the degree of conflict or closeness, and the reason for conflict. The goal of this topic is to help patients gain awareness of the relationships they have with others, identify types of conflict in patients??? lives and how they impactsymptoms/functioning, and identify how they can improve relationships with relationship and interpersonal skills they have learned. Patient Session Goals / Objectives: ??? Familiarized patients with awareness to the different types of relationships they may have with different people and substances in their lives ??? Discussed and practiced strategies to promote healthier understanding of interpersonal relationships with a focus on awareness of conflict, the causes of conflict, and the ways to transform conflict ??? Discussed the use of substances and its impact on their relationships Service Modality: Video Visit Telemedicine Visit: The [...] group discussion and participation, Demonstrated understanding of relationship skills and communication skills, Identified / Expressed personal readiness to incorporate effective communication skills and Practiced skills in session Treatment Plan: Patient has a current master individualized treatment plan. See [facility] treatment plan for more information. [facility] Group Note - Sophie Santiago LICSW - 11/06/2021 10:40 AM CDT Process Group Note PATIENT'S NAME: Augustus Ramirez Jr. : 1980 ACCT. 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 Reason for Telemedicine Visit: Services only offered telehealth Originating Site (Patient Location): Patient's home Distant Site (Provider Location): [facility]: [facility] Consent: The patient/guardian has verbally consented to: [...] Management and Personal Safety. Pt reports feeling guilty about argument with daughter this morning. He reports feeling on-edge andsometimes lashing out. Pt mentions marital tension too, but does not expound upon that. He realizeshe made need more structure in his day, because he is on a leave from work and his kids are back in school. We discussed ways to identify a schedule and including self-compassion activities. He is looking forward to the [employer] festival. Denies safety concerns. Therapeutic Interventions/Treatment Strategies: Psychotherapist [...] and cannabis . and Last use: yesterday a few cocktails and thc Mental Status/Behavioral Observations Appearance: Appropriate Eye Contact: [...] in any of these risk factors. ??? no concerns ??? Barriers to treatment: None identified ??? Patient Contracts (see media tab): None ??? Substance Use: Not addressed in session ??? Continue or Discharge: Patient will continue in Adult Day Treatment (ADT) as planned. Patient islikely to benefit from learning and using skills as they work toward the goals identified in their treatment plan. ADWOA Self November 06, 2021 documented in this encounter Plan of Treatment Upcoming Encounters Date Type Specialty Care Team Description 12/10/2021 Appointment Sarai Galindo MD [address] [place] [phone] (Wo rk) 12/11/2021 Appointment Sarai Galindo MD [address] [place] [phone] (Wo rk) 12/11/2021 [place] [address] [place] [phone] (Wo rk) 12/13/2021 [place] [address] [place] [phone] (Wo rk) 12/17/2021 [place] [address] [place] [phone] (Wo rk) 12/18/2021 [place] [address] [place] [phone] (Wo rk) documented as of this encounter Visit Diagnoses Diagnosis Current moderate episode of major depres sive disorder without prior episode (H) - Primary documented in this encounter Additional Health Concerns Assessment Noted Time PHQ-9 Depression Total Score: 14 09/30/2021 8:52 AM CD T documented as of this encounter Care Teams Transplant Nurse Practitioner Relationship Specialty Start Date End Date [facility] Medical PCP - General 09/21/21 [id number] [place] [address] [facility] 09/21/21 [address] [address] [id number] documented as of this encounter
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
--- OUTSIDE RECORDS SUMMARY | 2021-12-07 20:39 | XMS_ITS | Encounter Summary ---
:1980 Author Organization [place] Address [address] [place] [address] Care Team Providers Name Role Phone [facility] Primary Care Provider [phone] Sada Cagle Unavailable [phone] Reason for Visit Mental Health Outpatient (Routine) - Pending Review Specialty Diagnoses / Procedures Referred By Contact Refer red To Contact Behavioral Health Procedures Ur Adult Mh Partial Ur Adult Mh Day Tx MH IOP (6A) [facility] [address], [address] [place], [place] [address] [address] [place], [place] Phone: [phone] Referral ID Status Reason Start Date Expiration Date Visits V isits Requested Authorized [id number] Pending 10/16/2021 10/16/2022 36 23 Review Encounter Details Date Type Department Care Team Description 10/23/2021 Hospital Encounter [facility] Demarco Weaver [facility] & MD Omar episode of major Addiction Services [address] depressive disorder [address] without prior episode [address] HARLAN, (H) (Primary Dx) [facility] [id number] [phone] Social History Tobacco Use Types Packs/Day [...] Group Note - Roby Tejada LMFT - 10/23/2021 10:53 PM CDT Psychoeducation Group Note PATIENT'S NAME: Augustus Ramirez Jr. : 1980 [employer]. NUMBER: [id number] DATE OF SERVICE: 10/23/21 START TIME: 11:00 AM END TIME: 11:50 AM WORKERS COMPENSATION CLAIMS SUPERVISOR: Roby Tejada LMFT TOPIC: MH Wellness Group: Mental Health Maintenance [facility] Adult Mental Health Day Treatment TRACK: 6A NUMBER OF PARTICIPANTS: 6 Summary of Group / Topics Discussed: Mental Health Maintenance: Stress Management Journal: Patients completed a stress management journaland identified ways to reduce stress and increase resilience Patient Session Goals / Objectives: ? Patients discovered effective stress reduction techniques ? Patients identified techniques they will use to reduce stress Service Modality: Video Visit Telemedicine Visit: The [...] provided feedback with other participants. Francisco discussed working to connect in relationships helps him to reduce stress. Demonstrated understanding of topics discussed through group discussion and participation, Identified / Expressed personal readiness to practice skills and Verbalized understanding of mental health maintenance topic Treatment Plan: Patient has an initial individualized treatment plan that was created as part of their diagnostic assessment / admission process. A master individualized treatment plan is in the process of being developed with the patient and multi- disciplinary care team. DENNIS Peterson Group Note - Roby Tejada LMFT - 10/23/2021 4:59 PM CDT Psychotherapy Group Note PATIENT'S NAME: Augustus Ramirez Jr. : 1980 [employer]. NUMBER: [id number] DATE OF SERVICE: 10/23/21 START TIME: 10:00 AM END TIME: 10:50 AM WORKERS COMPENSATION CLAIMS SUPERVISOR: Roby Tejada LMFT TOPIC: MH EBP Group: Behavioral Activation [facility] Adult Mental Health Day Treatment TRACK: 6A NUMBER OF PARTICIPANTS: 5 Summary of Group / Topics Discussed: Behavioral Activation: [place] Ahead: {Patients identified situations that prompt unwanted and unhelpful emotions / thoughts / behaviors. Patients discussed how to problem solve by proactively using coping skills in potentially difficult situations. Components included describing the situation, brainstorming coping skills, imagining how scenario can/will unfold, rehearsing the action plan, and practicing relaxation to follow. Patients practiced using these skills to reduce symptom distress and increaseeffective coping behaviors. Patient Session Goals / Objectives: ?? Identify difficult situation(s), and gain proficiency with alternative behaviors / skills to problem solve. ?? Increase confidence using coping skills through group practice in session. ?? Receive and provide feedback regarding skill development. ?? Apply coping skills in daily life situations. Service Modality: Video Visit Telemedicine Visit: The [...] feedback with other participants. Francisco reported he did not have any future situationsin mind for using [place] AHEAD because he has been working to keep himself out of stressful situations, however, he said he understood how the skill could be helpful to use in the future. Demonstrated understanding of topics discussed through group discussion and participation, Expressedunderstanding of the relationship between behaviors, thoughts, and feelings and Practiced skills in session Treatment Plan: Patient has an initial individualized treatment plan that was created as part of their diagnostic assessment / admission process. A master individualized treatment plan is in the process of being developed with the patient and multi- disciplinary care team. DENNIS Peterson Group Note - Jessica Leavitt LMFT - 10/23/2021 10:07 AM CDT Process Group Note PATIENT'S NAME: Augustus Ramirez Jr. : 1980 [employer]. NUMBER: [id number] DATE OF SERVICE: 10/23/21 START TIME: 9:00 AM END TIME: 9:50 AM WORKERS COMPENSATION CLAIMS SUPERVISOR: Jessica Leavitt LMFT TOPIC: Process Group Diagnoses: 296.32 (F33.1) Major Depressive Disorder, Recurrent Episode, Moderate, With anxious distress Attention-Deficit/Hyperactivity Disorder 314.01 (F90.2) Combined presentation Provisional Diagnoses: Alcohol Use Disorder 303.90 (F10.20) Moderate 305.20 (F12.10) Cannabis Use Disorder Mild [facility] Day Treatment TRACK: 6A NUMBER OF PARTICIPANTS: 5 Service Modality: Video Visit Telemedicine Visit: The [...] session included Symptom Management, Personal Safety and Develop / Improve Independent Living Skills. Patient reported feeling not as anxious as usual but is feeling a lot of guilt and shame. Patient reported needing to call a small engine place to fix his kids four-vincent. Patient stated he has been using distraction techniques lately. Patient denied safety concerns and endorsed some chemical use. Patient reported feeling proud of himself for completing yard work. Therapeutic Interventions/Treatment Strategies: Psychotherapist offered support, feedback and validation and reinforced use of skills. Treatment modalities used include Motivational Interviewing, Cognitive Behavioral Therapy and Dialectical Behavioral Therapy. Interventions include Behavioral Activation: Reinforced benefits/challenges of change process through applying skills to replace unwanted behaviors, Explored how behaviors effect mood and interact with thoughts and feelings and Encouraged strategies to reduce individual procrastination and increase motivation by increasing goal-directed activities to enhance mood and reduce symptoms. and Symptoms Management: Promoted understanding of their diagnoses and how it impacts their functioning. Assessment: Patient response: Patient responded to session by accepting feedback, listening and being attentive Possible barriers to participation / learning include: and no barriers identified Health Issues: None reported Substance Use Review: Substance Use: No active concerns identified. Mental Status/Behavioral Observations Appearance: Appropriate Eye Contact: Good Psychomotor Behavior: Normal Attitude: Cooperative Orientation: All Speech Rate / Production: Normal Volume: Normal Mood: Depressed Affect: Appropriate Thought Content: Clear Thought Form: [...] in their treatment plan. DENNIS Mg October 23, 2021 documented in this encounter Plan of Treatment Upcoming Encounters Date Type Specialty Care Team Description 12/10/2021 Appointment Sarai Galindo MD [address] [place] [address] [phone] (Wo rk) 12/11/2021 Appointment Sarai Galindo MD [address] [place] [phone] (Wo rk) 12/11/2021 Appointment Sarai Galindo MD [address] [place] [phone] (Wo rk) 12/13/2021 Appointment Sarai Galindo MD [address] [place] [phone] (Wo rk) 12/17/2021 Appointment Sarai Galindo MD [address] [place] [phone] (Wo rk) 12/18/2021 Appointment Sarai Galindo MD [address] [place] [phone] (Wo rk) documented as of this encounter Visit Diagnoses Diagnosis Current moderate episode of major depres sive disorder without prior episode (H) - Primary documented in this encounter Additional Health Concerns Assessment Noted Time PHQ-9 Depression Total Score: 14 09/30/2021 8:52 AM CD T documented as of this encounter Care Teams Wedding Transportation Driver Relationship Specialty Start Date End Date [facility] Medical PCP - General 09/21/21 [id number] [address] [place], [place] [phone] [facility] 09/21/21 [id number] [address] [place] [id number] documented as of this encounter
--- OUTSIDE RECORDS SUMMARY | 2021-12-07 20:39 | XMS_ITS | Encounter Summary ---
:1980 Author Organization [place] Address [address] [place] [address] Care Team Providers Name Role Phone [facility] Primary Care Provider [phone] Sada Cagle Unavailable [phone] Reason for Visit Auth/Cert Specialty Diagnoses / Procedures Referred By Contact Refer red To Contact Behavioral Health Ur Adult Mh Pa rtial [facility] orth [address]ing [address], [address] [place] [address] Phone: Fax: Referral ID Status Reason Start Date Expiration Date Visits Requ ested Visits Authorized [id number] 1 1 Encounter Details Date Type Department Care Team Description 10/07/2021 Hospital Encounter [facility] Demarco Weaver [facility] Mental Health & MD Omar episode of major Addiction Services [address] depressive disorder [facility] without prior episode Blding COVELO, (H) (Primary Dx) [address] [place] [address] [address] [place], [place] (Work) [phone] Social History Tobacco Use [...] encounter Progress Notes Omar Weaver MD - 10/07/2021 3:19 PM CDT Acknowledgement of Current Treatment Plan I have reviewed my treatment plan with my therapist / counselor on 10/07/2021. I agree with the plan as it is written in the electronic health record. Name: Signature: Augustus Ramirez Unable to sign due to Covid 19. Verbal permission given on 10/07/2021 1315 Omar Weaver MD Psychiatrist/Vacuum Frame Operator Omar Weaver MD on 10/07/2021 at 4:27 PM Estefania Ellis OTR/Yanna Occupational Therapist Estefania Ellis OTR/Yanna on 10/07/2021 at 3:19 PM Roby Tejada MA, LMFT Psychotherapist DENNIS Peterson on 10/07/2021 at 3:32 PM documented in this encounter Miscellaneous Notes Group Note - Roby Tejada LMFT - 10/07/2021 4:04 PM CDT Process Group Note PATIENT'S NAME: Augustus Ramirez Jr. : 1980 [employer]. NUMBER: [id number] DATE OF SERVICE: 10/07/21 START TIME: 9:00 AM END TIME: 9:50 AM VEHICLE INSPECTOR: Roby Tejada LMFT TOPIC: Process Group Diagnoses: 296.32 (F33.1) Major Depressive Disorder, Recurrent Episode, Moderate, With anxious distress Attention-Deficit/Hyperactivity Disorder 314.01 (F90.2) Combined presentation Provisional Diagnoses: 1. Alcohol Use Disorder 303.90 (F10.20) Moderate 2. 305.20 (F12.10) Cannabis Use Disorder Mild [facility] Adult Partial Hospitalization Program TRACK: [facility] NUMBER OF PARTICIPANTS: 5 Service Modality: Video [...] and Community Resources/Discharge Planning. Patient reported feeling good, he got a lot accomplished over the weekend. He is getting ready to move his mom in. He got a little manic with not sleeping as much doing the house work, and he did some deep breathing to calm himself down. His mom is terminally ill and he might have her stay with him and his during her last days, if it works out. Patient discussed working toward counteracting anxiety and negative feelings with skills learned ingroup. For skills they will use to address their goal(s), patient identified deep breathing, and sitting in a room without electronics and listening to the outside world, which is calming for him sometimes. A barrier to working toward their goal(s) and/or addressing mental health symptoms the patient identified was negative thoughts/self-talk. Patient reported no safety concerns and/or self-injurious behaviors. Patient reported 2 cocktails a day over the weekend and a little marijuana at bed time. Patient reported they are taking their medications as prescribed. Patient reported feeling proud/grateful for him and his working together all weekend and not arguing. Patient discussed with the treatment group that he is is getting ready to move his mom in. He got a little manic with not sleeping as much doing the house work, and he did some deep breathing to calm himself down. His mom is terminally ill and he might have her stay with him and his during her last days, if it works out. Therapeutic Interventions/Treatment Strategies: Psychotherapist offered support, feedback [...] Substance Use Review: Substance Use: Patient reported 2 cocktails a day over the weekend and a little marijuana at bed time. Mental Status/Behavioral Observations Appearance: Appropriate Eye Contact: Good Psychomotor Behavior: Normal Attitude: Cooperative Orientation: All Speech Rate / Production: Normal Volume: Normal Mood: Anxious Affect: Appropriate Thought Content: Clear and Safety [...] in their treatment plan. DENNIS Peterson October 07, 2021 Group Note - Roby Tejada LMFT - 10/07/2021 3:46 PM CDT Psychotherapy Group Note PATIENT'S NAME: Augustus Ramirez Jr. : 1980 [employer]. NUMBER: [id number] DATE OF SERVICE: 10/07/21 START TIME: 10:00 AM END TIME: 10:50 AM VEHICLE INSPECTOR: Roby Tejada LMFT TOPIC: EBP Group: Cognitive Restructuring [facility] Adult Partial Hospitalization Program TRACK: [facility] NUMBER OF PARTICIPANTS: 5 Summary of Group / Topics Discussed: Cognitive Restructuring: Distortions: Patients received an overview of how to identify common cognitive distortions. Patients will explore alternatives to cognitive distortions and practice challengingtheir negative thought patterns. The goal is to [...] and plan to apply in daily life Service Modality: Video Visit Telemedicine Visit: The [...] and how they impact their mood and behavior., Identified / Expressed personal readiness to practice CBT, Verbalized understanding of patient's own thought patterns and how they impact their mood and behaviors and Practiced skills in session Treatment Plan: Patient has an initial individualized treatment plan that was created as part of their diagnostic assessment / admission process. A master individualized treatment plan is in the process of being developed with the patient and multi- disciplinary care team. DENNIS Peterson Group Note - Belkis Leonard RN - 10/07/2021 3:11 PM CDT Psychoeducation Group Note PATIENT'S NAME: [facility] Jr. : 1980 [facility] NUMBER: [id number] DATE OF SERVICE: 10/07/21 START TIME: 2:00 PM END TIME: 2:50 PM VEHICLE INSPECTOR: Belkis Leonard RN TOPIC: Wellness Group: Mental Health Maintenance [facility] Adult Partial Hospitalization Program TRACK: 1 NUMBER OF PARTICIPANTS: 5 Summary of Group / Topics Discussed: Mental Health Maintenance: Assessments of Strengths: Patients completed a self- reflection on personal strengths worksheet. The concept of personal strength as it relates to resilience were explored. Patients shared responses with the group and participated in discussion. Patient Session Goals / Objectives: ? Patients identified 1-3 qualities they consider a personal strength. ? Patients understood the concept of personal strengths and the connection it has to resiliency Service Modality: Video Visit Telemedicine Visit: The [...] received / provided feedback with other participants. Identified / Expressed personal readiness to practice skills and Verbalized understanding of mental health maintenance topic Treatment Plan: Patient has a current master individualized treatment plan. See Epic treatment plan for more information. Belkis Leonard RN Group Note - Adelaide Morris OTR/L - 10/07/2021 2:59 PM CDT Psychoeducation Group Note PATIENT'S NAME: Augustus Ramirez Jr. : 1980 [facility] NUMBER: [id number] DATE OF SERVICE: 10/07/21 START TIME: 1:00 PM END TIME: 1:50 PM VEHICLE INSPECTOR: Adelaide Morris OTR/L TOPIC: [facility] OT Group: Self- Regulation Skills [facility] Adult Partial Hospitalization Program TRACK: [facility] NUMBER OF PARTICIPANTS: 5 Service Modality: Video [...] telemedicine. Summary of Group / Topics Discussed: Sensory Approaches in Mental Health: Grounding Skills - Patients were introduced and taught about neurosensory based skills and strategies related to supporting effective self regulation skills. Patients were taught about the sensory, cognitive and soothing approaches which can be used for coping withmental health symptoms and stressors. Patients were provided with an experiential opportunity practice some skills. Patients were encourage to identify how and when to use of these skills, as well as which skills best suited their needs. Patient Session Goals / Objectives: ??? Identified specific and individualized neurosensory skills to help when distressed ??? Identified skills learned and how this applies to current daily life ??? Established a plan for practice of these skills in their own environments Patient Participation / Response: Fully participated with the group by sharing personal reflections / insights and openly received / provided feedback with other participants. Patient presentation: congruent, demonstrated understanding of topic through discussion and participation in activities. Pt shared he uses deep breathing, stopping, finding a quiet room - listening to help cope with symptoms. Treatment Plan: Patient has a current master individualized treatment plan. See [facility] treatment plan for more information. OLY Liriano/Yanna Group Note - Kathleen Grajeda LMFT - 10/07/2021 11:12 AM CDT Psychotherapy Group Note PATIENT'S NAME: Augustus Ramirez Jr. : 1980 [employer]. NUMBER: [id number] DATE OF SERVICE: 10/07/21 START TIME: 11:00 AM END TIME: 11:50 AM VEHICLE INSPECTOR: Kathleen Grajeda LMFT TOPIC: EBP Group: Emotions Management [facility] Adult Partial Hospitalization Program TRACK: 1 NUMBER OF PARTICIPANTS: 5 Summary of Group [...] with emotional response to potentially distressing situations. Service Modality: Video Visit Telemedicine Visit: [...] strategies to employ to manage them, Demonstrated knowledge of when to consider applying a variety of emotions management skills in daily life and Demonstrated understanding and practice strategies to manage difficult emotions and move towards healing Treatment Plan: Patient has an initial individualized treatment plan that was created as part of their diagnostic assessment / admission process. A master individualized treatment plan is in the process of being developed with the patient and multi- disciplinary care team. DENNIS Garcia documented in this encounter Plan of Treatment Upcoming Encounters Date Type Specialty Care Team Description 12/10/2021 Appointment Sarai Galindo MD [address] [place] [phone] (Wo rk) 12/11/2021 Appointment Sarai Galindo MD [address] [place] [phone] (Wo rk) 12/11/2021 Appointment Sarai Galindo MD [address] [place] [phone] (Wo rk) 12/13/2021 Appointment Sarai Galindo MD [address] [place] [phone] (Wo rk) 12/17/2021 Sraai Franks MD [address] [place] [phone] (Wo rk) 12/18/2021 Sarai Franks MD [address] [place] [address] (Wo rk) documented as of this encounter Visit Diagnoses Diagnosis Current moderate episode of major depres sive disorder without prior episode (H) - Primary documented in this encounter Additional Health Concerns Assessment Noted Time PHQ-9 Depression Total Score: 14 09/30/2021 8:52 AM CD T documented as of this encounter Care Teams Electric Sealing Machine Operator Relationship Specialty Start Date End Date [facility] Medical PCP - General 09/21/21 [address] [place] [address] [facility] 09/21/21 [address] [address] [place] [phone] documented as of this encounter
--- OUTSIDE RECORDS SUMMARY | 2021-12-07 20:39 | XMS_ITS | Encounter Summary ---
:1980 Author Organization [place] Address [address] [place] [address] Care Team Providers Name Role Phone [facility] Primary Care Provider [phone] Sada Cagle Unavailable [phone] Reason for Visit Auth/Cert Specialty Diagnoses / Procedures Referred By Contact Refer red To Contact Behavioral Health Ur Adult [facility] orth [address]lding [address], [address] [place] [address] Phone: Fax: Referral ID Status Reason Start Date Expiration Date Visits Requ ested Visits Authorized [id number] 1 1 Encounter Details Date Type Department Care Team Description 10/15/2021 Hospital Encounter [facility] Omar episode of major Addiction Services [address] depressive disorder [facility] without prior episode Blding [place], (H) (Primary Dx) [address] [place] [address] [address] [place] (Work) [phone] Social History Tobacco Use [...] Group Note - Kathleen Grajeda LMFT - 10/15/2021 4:57 PM CDT Psychotherapy Group Note PATIENT'S NAME: Augustus Ramirez Jr. : 1980 [employer]. NUMBER: [id number] DATE OF SERVICE: 10/15/21 START TIME: 4:00 PM END TIME: 5:50 PM RESOURCE DEVELOPMENT DIRECTOR: Kathleen Grajeda LMFT; Roby Tejada LMFT TOPIC: EBP Group: Social Support [facility] Program TRACK: 1 NUMBER OF PARTICIPANTS: 7 Summary of Group / Topics Discussed: Social Support: Latin Dancer Meeting: Patients and their support system participated in a sessionon creating family and community-based support. The importance and role of family/social support wasstressed to increase the effectiveness of treatment. Patients and their support system were given inf ormation on PHP structure, diagnoses served within the program, in addition to freeman goals and objectives. Additionally, physical symptoms, thoughts, and behaviors commonly observed in psychopathology were presented and discussed. Lastly, information was presented on ways to help promote and support recovery. The patients and their support system benefitted from this session by working through an exercise designed to clarify their needs for assistance and support in order to enhance their recovery. Staff helped each clarify their roles, so that the patients can be in charge of their stabilization andrecovery. Patient Session Goals / Objectives: ??? Normalize aspects of mental health conditions and mental illness ??? Provide education on ???normal?? vs. ???abnormal?? aspects of mental health ??? Clarify the role of partial hospitalization programming ??? Reduce stigma associated with mental health diagnosis (es). ??? Provide social support system with techniques and strategies to improve communication and enhance empathy. ??? Improve interpersonal communication regarding symptoms ??? Build a sense of mastery and self-respect Service Modality: Video Visit Telemedicine Visit: The [...] / provided feedback with other participants. Francisco attended network project manager night with his . Treatment Plan: Patient has a current master individualized treatment plan. See [facility] treatment plan for more information. DENNIS Garcia Group Note - Belkis Leonard RN - 10/15/2021 3:53 PM CDT Psychoeducation Group Note PATIENT'S NAME: Augustus Ramirez Jr. : 1980 [employer]. NUMBER: [id number] DATE OF SERVICE: 10/15/21 START TIME: 3:00 PM END TIME: 3:50 PM RESOURCE DEVELOPMENT DIRECTOR: Belkis Leonard RN TOPIC: Wellness Group: Mind/Body Practice & Complementary [facility] TRACK: [facility] NUMBER OF PARTICIPANTS: 8 Summary of Group / Topics Discussed: Mind/Body Practice & Complementary Therapies: Progressive Muscle Relaxation: In addition to affecting our mood and behavior, psychological stress can cause a myriad of physical symptoms in our body. Patients were educated on these effects and guided to increased self-awareness of how stress affects their body. The purpose, benefits, history, and techniques of progressive muscle relaxation were discussed. In an instructor guided experiential, patients were guided to practice PMR to help reduce physical symptoms of psychological stress and achieve a more balanced feeling of well-being. Patient Session Goals / Objectives: ? Identified physiological symptoms of stress on the body ? Listed & Explained the purpose and benefits to practicing PMR ? Practiced progressive muscle relaxation experiential Service Modality: Video Visit Telemedicine Visit: The [...] feedback with other participants. Verbalized understanding of Mind/Body Practice & Complementary Therapies topic Treatment Plan: Patient has a current master individualized treatment plan. See [facility] treatment plan for more information. Belkis Leonard RN Group Note - Adelaide Morris OTR/L - 10/15/2021 3:43 PM CDT Psychoeducation Group Note [facility]'S NAME: [facility] 1980 [facility] NUM[facility]: [id number] DATE OF SERVICE: 10/15/21 START TIME: 2:00 PM END TIME: 2:50 PM RESOURCE DEVELOPMENT DIRECTOR: Adeladie Morris OTR/Yanna TOPIC: [facility] OT Group: Lifestyle Balance and Structure [facility] TRACK: [facility] NUMBER OF PARTICIPANTS: 8 Service Modality: Video Visit Telemedicine Visit: The [...] telemedicine. Summary of Group / Topics Discussed: Life Skills: Lifestyle Balance and Structure: Expectations and Perceptions. Patients reflected on the importance of intellectual wellness for custodial cognitive health, improving adaptability, challenging current ways of thinking, and increasing creativity, knowledge, and skills. Patients were provided opportunities to practice flexibility in interpretation and were guided to consider alternative interpretations by challenging assumptions, taking different perspectives, and slowing down to perceivemore nuances and details. Patient Session Goals / Objectives: ? Identify activities that support intellectual wellness ? Understand the benefits of engaging in intellectual challenges ? Working together to practice cognitive flexibility tasks ? Identifying application of skills to everyday situations Patient Participation / Response: Fully participated with the group by sharing personal reflections / insights and openly received / provided feedback with other participants. Patient presentation: congruent, demonstrated understanding of topic through discussion and participation in activities. I was going to go for a bike ride. I looked over and saw my dog, walked instead. Francisco shared preference with the group and practiced expressing his expectations. Treatment Plan: Patient has a current master individualized treatment plan. See [facility] treatment plan for more information. MADI Liriano Group Note - Kathleen Grajeda LMFT - 10/15/2021 1:04 PM CDT Process Group Note PATIENT'S NAME: Augustus Ramirez Jr. : 1980 [employer]. 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 Francisco reported feeling ???a lot of anxiety?? today. ???I???ve been trying to stay active this morning as a way to counter act all of the thinking.?? Reports struggling with shame after groups yesterday, ???I was in the same place for a moment as when I tried to kill myself, I was able to snap out of it, but it wasn???t good and all of the shame and guilt came flooding back.?? Patient identified thefollowing goal(s) to work towards today: ???to figure out how to counteract or deal with these feelings in a healthy way, or maybe just get rid of them.?? Patient plans to use the following skills to achieve their goal: ???trying to be mindful, working on positive affirmations to say to myself.?? Patient anticipates the following barriers that may interfere with achieving their goal: ???not knowingsometimes how to deal with the feelings that I have. The negative talk is all the time, it sucks.?? Denies safety concerns, ???I don???t have thoughts of suicide,?? endorses chemical use (cannabis, alcohol), and reports taking their medications as prescribed. Reports struggling to sleep due to negative racing thoughts. Patient reports feeling proud of/grateful for: ???keeping myself busy.?? Patient asked for the following supports from the group today: ???feedback, listening.?? Declined additional process time. Francisco received supportive feedback from the [...] in the moment actions can help reduce distress, Assisted patient in understanding the purpose of planning / creating / participating / sharing in positive experiences and Facilitated understandingof what factors may contribute to symptom relapse and skills plan to manage symptom relapse , Symptoms Management: Promoted understanding of their diagnoses and how it impacts their functioning and Emotions Management: Reinforced the purpose and biological basis of emotions, Reviewed opposite action skill and Increased awareness of daily mood patterns/changes. Assessment: Patient response: Patient responded to session by accepting feedback, giving feedback, listening, focusing on goals, being attentive and accepting support Possible barriers to participation / learning include: and no barriers identified Health Issues: None reported Substance Use Review: Substance Use: alcohol . and Last use: cannabis and alcohol yesterday Mental Status/Behavioral Observations Appearance: Appropriate Eye Contact: Fair Psychomotor Behavior: Normal Attitude: Cooperative Interested Friendly Pleasant Orientation: All Speech Rate / Production: Emotional Normal Volume: Normal Mood: Anxious Depressed Sad Grieving Affect: Tearful Worrisome Thought Content: Rumination and Safety denies any current safety concerns including suicidal ideation, self-harm, and homicidal ideation Thought Form: Coherent Logical Insight: Fair Plan: ??? Safety Plan: Committed to [...] in their treatment plan. DENNIS Garcia October 15, 2021 documented in this encounter Plan of Treatment Upcoming Encounters Date Type Specialty Care Team Description 12/10/2021 [place] [address] [place] [address] [phone] (Wo rk) 12/11/2021 [place] [address] [place] [address] [phone] (Wo rk) 12/11/2021 [place] [address] [place] [address] [phone] (Wo rk) 12/13/2021 [place] [address] [place] [address] [phone] (Wo rk) 12/17/2021 [place] [address] [place] [address] [phone] (Wo rk) 12/18/2021 [place] [address] [place] [address] [phone] (Wo rk) documented as of this encounter Visit Diagnoses Diagnosis Current moderate episode of major depres sive disorder without prior episode (H) - Primary documented in this encounter Additional Health Concerns Assessment Noted Time PHQ-9 Depression Total Score: 14 09/30/2021 8:52 AM CD T documented as of this encounter Care Teams Compositor Apprentice Relationship Specialty Start Date End Date [facility] Medical PCP - General 09/21/21 [id number] [place] [address] S[facility] 09/21/21 [id number] [place] [id number] documented as of this encounter
--- OUTSIDE RECORDS SUMMARY | 2021-12-07 20:39 | XMS_ITS | Encounter Summary ---
:1980 Author Organization [facility] Address [address] [place] [address] Care Team Providers Name Role Phone [facility] Primary Care Provider [phone] Sada Cagle Unavailable [phone] Reason for Visit Auth/Cert Specialty Diagnoses / Procedures Referred By Contact Refer red To Contact Behavioral Health Ur Adult Mh Pa rtial [facility] orth [address]lding [address], [address] [place] [address] Phone: Fax: Referral ID Status Reason Start Date Expiration Date Visits Requ ested Visits Authorized [id number] 1 1 Encounter Details Date Type Department Care Team Description 10/10/2021 Hospital Encounter [facility] Demarco Weaver [facility] Mental Health & MD Omar episode of major Addiction Services [address] depressive disorder [facility] without prior episode Blding [place], (H) (Primary Dx) [address] [place] [address] [address] [place], [place] (Work) [phone] Social History Tobacco Use [...] Progress Notes Omar Weaver MD - 10/10/2021 4:47 PM CDT Acknowledgement of Current Treatment Plan I have reviewed my treatment plan with my therapist / counselor on 10/10/21. I agree with the plan as it is written in the electronic health record. Name: Signature: Augustus Ramirez Jr. Patient agrees with the plan. Patient is unable to sign due to COVID-19. Omar Weaver MD Psychiatrist/Greenhouse Worker Omar Weaver MD on 10/11/2021 at 8:43 AM Roby Tejada MA, [facility] Omar Weaver MD on 10/10/2021 at 4:47 PM documented in this encounter Miscellaneous Notes Group Note - Estefania Ellis OTR/Yanna - 10/10/2021 3:53 PM CDT Psychoeducation Group Note PATIENT'S NAME: Augustus Ramirez Jr. : 1980 ACCT. NUMBER: [id number] DATE OF SERVICE: 10/10/21 START TIME: 2:00 PM END TIME: 2:50 PM LOG BUYER: Estefania Ellis OTR/Yanna TOPIC: [facility] OT Group: Self- Regulation Skills [facility] Adult Partial Hospitalization Program TRACK: 1 NUMBER OF PARTICIPANTS: 7 Service Modality: Video Visit Telemedicine Visit: The patient's condition can be safely assessed and treated via synchronous audioand visual telemedicine encounter. Reason for Telemedicine Visit: Services only offered telehealth Originating Site (Patient Location): Patient's home Distant Site (Provider Location): [facility] Outpatient Setting: Partial Hospitalization Program, [facility] Consent: The patient/guardian has verbally consented to: [...] telemedicine. Summary of Group / Topics Discussed: Self-Regulation Skills: Coping Through the Senses Introduction: Patients were introduced and taught about neurosensory based skills and strategies related to supporting effective self regulation skills. Patients were taught about the eight sensory systems (external and internal) and how they can be used for coping with mental health symptoms and stressors. Patients were provided with an experiential opportunity to increase self-awareness of helpful sensory input and self care activities. Patients were introduced on how to create supportive environments that encourage use of these skills. Patient Session Goals / Objectives: ??? Review/learn the 8 sensory systems and how they relate to self-regulation ??? Identified specific and individualized neurosensory skills to help when distressed ??? Identified skills learned and how this applies to current daily life ??? Established a plan for practice of these skills in their own environments Patient Participation / Response: Fully participated with the group by sharing personal reflections / insights and openly received / provided feedback with other participants. Patient presentation: congruent affect observed; active in group discussion sharing ideas/insights, Verbalized understanding of content and Patient would benefit from additional opportunities to practice the content to be able to generalize it to their everyday life with increased intentionality, consistency, and efficacy in support of their psychiatric recovery Treatment Plan: Patient has a current master individualized treatment plan and today was our weekly review of the patient's progress. See Epic treatment plan for progress / updates on goals and plan. MADI Melgar Group Note - Gaby Eden LICSW - 10/10/2021 1:54 PM CDT Psychotherapy Group Note PATIENT'S NAME: Augustus Ramirez JrRichard : 1980 ACCT. NUMBER: [id number] DATE OF SERVICE: 10/10/21 START TIME: 1:00 PM END TIME: 1:50 PM LOG BUYER: Gaby Eden LICSW TOPIC: EBP Group: Enhanced Mindfulness [facility] Adult Partial Hospitalization Program TRACK: 1 NUMBER OF PARTICIPANTS: 6 Summary of Group / Topics Discussed: Enhanced Mindfulness: Body and Mind Integration: Patients received an overview and education regarding the importance of including the body in the management of emotional health and self-care and as a direct route to mindfulness practice. Patients discussed various ways in which the body can serve as an informant to their physical and emotional experiences/need. Patients discussed the body as a direct link to the present moment and to mindfulness practice. Patients discussed current relationship with body, self-awareness, mindfulness practice and barriers to connection with body. Patients were guided through breath work and movement to facilitate greater self-awareness, grounding, self-expression, and connection to other. Patients discussed how the experiential could be applied to better manage mental health and develop hill connection to self. Patient Session Goals / Objectives: ??? Identify how movement awareness could be used for grounding, stress management, self-expression,connection to other and self-regulation ??? Improved awareness of breath and movement preferences ??? Identify how movement and the body is used in mindfulness practice ??? Reflect on use of these practices in everyday life. ??? Identify barriers to attending to body ? Service Modality: Video Visit ? Telemedicine Visit: The patient's condition can be safely assessed and treated via synchronous audio and visual telemedicine encounter. ? Reason for Telemedicine Visit: Services only offered telehealth and covid19 ? Originating Site (Patient Location): Patient's home ? Distant Site (Provider Location): Provider Remote Setting- Home Office ? Consent: The patient/guardian has verbally consented to: the potential risks and benefits of telemedicine (video visit) versus in person care; bill my insurance or make self-payment for services provided; and responsibility for payment of non-covered services. ? Patient would like the video invitation sent by: My Chart ? Mode of Communication: Video Conference via Medical Zoom ? As the provider I attest to compliance with applicable laws and regulations related to telemedicine. ??? Patient Participation / Response: Fully participated with the group by sharing personal reflections / insights and openly received / provided feedback with other participants. Demonstrated understanding of topics discussed through group discussion and participation and Practiced skills in session Treatment Plan: Patient has an initial individualized treatment plan that was created as part of their diagnostic assessment / admission process. A master individualized treatment plan is in the process of being developed with the patient and multi- disciplinary care team. ADWOA Fry Group Note - Belkis Leonard RN - 10/10/2021 12:15 PM CDT Psychoeducation Group Note PATIENT'S NAME: Augustus Ramirez Jr. : 1980 ACCT. NUMBER: [id number] DATE OF SERVICE: 10/10/21 START TIME: 10:00 AM END TIME: 10:50 AM LOG BUYER: Belkis Leonard RN TOPIC: Wellness Group: [facility] Adult Partial Hospitalization Program TRACK: [facility] NUMBER OF PARTICIPANTS: 7 Summary of Group / Topics Discussed: [facility]: Nutrition: Super Nutrients & Micronutrients: Super Nutrients are Foods that have high nutritional yield. Micronutrients are essential elements found in food or taken through supplements that are necessary for normal physiological functioning. This group was designed to complement the macronutrients group and build upon previous education. The changes that food makes on the brain (how the brain uses sugar) and nutrition as it relates to mental health was also discussed. Patient Session Goals / Objectives: ? Identified the health enhancing benefits to good nutrition ? Verbalized ways in which the food we eat affects the brain ? Explained the role of micronutrients in the body, how much we need, and how to get it Service Modality: Video Visit Telemedicine Visit: The [...] a current master individualized treatment plan. See [facility] treatment plan for more information. Belkis Leonard RN Group Note - Roby Tejada LMFT - 10/10/2021 11:31 AM CDT Process Group Note PATIENT'S NAME: Augustus Ramirez Jr. : 1980 ACCT. NUMBER: [id number] DATE OF SERVICE: 10/10/21 START TIME: 9:00 AM END TIME: 9:50 AM LOG BUYER: Roby Tejada LMFT TOPIC: Process Group Diagnoses: 296.32 (F33.1) Major Depressive Disorder, Recurrent Episode, Moderate, With anxious distress Attention-Deficit/Hyperactivity Disorder 314.01 (F90.2) Combined presentation Provisional Diagnoses: 1. Alcohol Use Disorder 303.90 (F10.20) Moderate 2. 305.20 (F12.10) Cannabis Use Disorder Mild [facility] Adult Partial Hospitalization Program TRACK: [facility] NUMBER OF PARTICIPANTS: 7 Service Modality: Video Visit Telemedicine Visit: The [...] and Community Resources/Discharge Planning. Patient reported feeling ???better than yesterday.?? He hadn???t had to travel as much, so that helps. Patient discussed working toward getting rid of the anxiety so he can reflect on himself and his feelings. For skills they will use to address their goal(s), patient identified mindfulness and breathing, being aware of his body and mind, and of triggers. A barrier to working toward their goal(s) and/or addressing mental health symptoms the patient identified was ???fear is a big barrier for me in a lot of ways.?? Patient reported no safety concerns and/or self-injurious behaviors. Patient reported having a couple of cocktails, and smoked a little pot after dinner. Patient reported they are taking their medications as prescribed. Patient reported feeling proud/grateful for going to the [employer] for 20 minutes yesterday and he didn???t feel he needed to [place] home. Patient discussed with the treatment group that he gets anxious when he is away for awhile and needsto get back to ???my people.?? Therapeutic Interventions/Treatment Strategies: Psychotherapist offered support, feedback [...] Substance Use Review: Substance Use: Patient reported having a couple of cocktails, and smoked a little pot after dinner. Mental Status/Behavioral Observations Appearance: Appropriate Eye Contact: [...] in their treatment plan. DENNIS Peterson October 10, 2021 Group Note - Kathleen Grajeda LMFT - 10/10/2021 11:14 AM CDT Psychotherapy Group Note PATIENT'S NAME: Augustus Ramirez Jr. : 1980 ACCT. NUMBER: [id number] DATE OF SERVICE: 10/10/21 START TIME: 11:00 AM END TIME: 11:50 AM LOG BUYER: Kathleen Grajeda LMFT TOPIC: EBP Group: Self-Awareness [facility] Adult Partial Hospitalization Program TRACK: 1 NUMBER OF PARTICIPANTS: 7 Summary of Group / Topics Discussed: Self-Awareness: Grief: Patients were provided with an overview of how personal losses impact their thoughts, feelings, and behaviors. Different stages of grief were discussed, with a focus on the personal and individual experiences of grief as a natural response to loss. The relationship between grief, depression, and anxiety was also discussed. Patients were provided with information regarding different ways of processing grief and shared their personal experiences. Patient Session Goals / Objectives: ??? Defined and explored the concept of grief and the grieving process ??? Discussed relationship between grief, depression, and anxiety ??? Normalized and recognized the purpose/benefits of the grieving process ??? Discussed management of the thoughts and feelings associated with grief Service Modality: Video Visit Telemedicine Visit: The [...] to act intentionally, increase self-compassion, promote personal growth and Verbalized understanding of ways to proactively manage illness Treatment Plan: Patient has a current master individualized treatment plan and today was our weekly review of the patient's progress. See Epic treatment plan for progress / updates on goals and plan. DENNIS Garcia documented in this encounter Plan of Treatment Upcoming Encounters Date Type Specialty Care Team Description 12/10/2021 [place] [address] [place] [address] [phone] (James wan) 12/11/2021 [place] [address] [place] [address] [phone] (James wan) 12/11/2021 [place] [address] [place] [address] [phone] (James wan) 12/13/2021 [place] [address] [place] [address] [phone] (James wan) 12/17/2021 [place] [address] [place] [phone] (Wo rk) 12/18/2021 Appointment Behavioral Health Sarai Weaver MD [address] [place], [place] [phone] (Wo rk) documented as of this encounter Visit Diagnoses Diagnosis Current moderate episode of major depres sive disorder without prior episode (H) - Primary documented in this encounter Additional Health Concerns Assessment Noted Time PHQ-9 Depression Total Score: 14 09/30/2021 8:52 AM CD T documented as of this encounter Care Teams Cobol Engineer Relationship Specialty Start Date End Date [facility] Medical PCP - General 09/21/21 [id number] [place], [place] [id number] [facility] 09/21/21 [address] [phone] documented as of this encounter
--- OUTSIDE RECORDS SUMMARY | 2021-12-07 20:39 | XMS_ITS | Encounter Summary ---
:1980 Author Organization [facility] Address [address] [place] [address] Care Team Providers Name Role Phone [facility] Primary Care Provider [phone] Sada Cagle Unavailable [phone] Reason for Visit Mental Health Outpatient (Routine) - Pending Review Specialty Diagnoses / Procedures Referred By Contact Refer red To Contact Behavioral Health Procedures Ur Adult Mh Partial Ur Adult Mh Day Tx MH IOP (6A) [facility] [address], [address] [place], [place] [address] [address] [place], [place] Phone: [phone] Referral ID Status Reason Start Date Expiration Date Visits V isits Requested Authorized [id number] Pending 10/16/2021 10/16/2022 36 23 Review Encounter Details Date Type Department Care Team Description 10/30/2021 Hospital Encounter [facility] Demarco Weaver [facility] & MD Omar episode of major Addiction Services [address] depressive disorder [address] without prior episode [address] [place], (H) (Primary Dx) [facility] [phone] Social History Tobacco Use Types Packs/Day [...] Group Note - Roby Tejada LMFT - 10/30/2021 11:05 PM CDT Psychotherapy Group Note PATIENT'S NAME: Augustus Ramirez Jr. : 1980 ACCT. NUMBER: [id number] DATE OF SERVICE: 10/30/21 START TIME: 11:00 AM END TIME: 11:50 AM FORMING ROLL OPERATOR HEAVY DUTY: Roby Tejada LMFT TOPIC: EBP Group: Coping Skills [facility] Adult Mental Health Day Treatment TRACK: 6A NUMBER OF PARTICIPANTS: 5 Summary of Group / Topics Discussed: Coping Skills: Self-Soothe: Patients learned to apply self-soothe as a way to decrease heightened stress in the moment. Patients identified situations that necessitate self-soothe strategies. They focused on ways to manage physical symptoms of distress using the senses. Patient Session Goals / Objectives: ?? Understand the purpose of using the senses to decrease distress ?? Demonstrate understanding of when to use self-soothe strategies ?? Identify and problem solve barriers to applying self-soothe strategies. ?? Choose 1-2 self-soothe strategies to apply during times of distress. Service [...] coping skills at distressing times in life, Identified 2-3 positive coping strategies that have helped maintain / improve symptoms in the past and Identified / Expressed personal readiness to practice new coping skills Treatment Plan: Patient has an initial individualized treatment plan that was created as part of their diagnostic assessment / admission process. A master individualized treatment plan is in the process of being developed with the patient and multi- disciplinary care team. DENNIS Peterson Group Note - Roby Tejada LMFT - 10/30/2021 10:45 PM CDT Psychotherapy Group Note PATIENT'S NAME: Augustus Ramirez Jr. : 1980 ACCT. NUMBER: [id number] DATE OF SERVICE: 10/30/21 START TIME: 10:00 AM END TIME: 10:50 AM FORMING ROLL OPERATOR HEAVY DUTY: Roby Tejada LMFT TOPIC: EBP Group: Cognitive Restructuring [facility] Adult Mental Health Day Treatment TRACK: 6A NUMBER OF PARTICIPANTS: 5 Summary of Group / Topics Discussed: Cognitive Restructuring: Socratic Questions: Patients will explore alternatives to cognitive distortions and practice challenging their negative thought patterns through the use of Socratic Questions. The goal is to help patients target modify ineffective thought patterns. Patient Session Goals / Objectives: ??? Formulated new neutral/positive alternatives to challenge less helpful / ineffective thoughts with the use of Socratic Questions Service Modality: Video Visit Telemedicine Visit: The [...] provided feedback with other participants. Francisco reported having difficulty identifying a specific thought to focus on challenging for the assignment, however, he was able to identify how the Socratic questions could be helpful. Demonstrated understanding of topics discussed through group discussion and participation and Identified barriers to changing thought patterns Treatment Plan: Patient has an initial individualized treatment plan that was created as part of their diagnostic assessment / admission process. A master individualized treatment plan is in the process of being developed with the patient and multi- disciplinary care team. DENNIS Peterson Group Note - Sophie Santiago LICSW - 10/30/2021 10:56 AM CDT Process Group Note PATIENT'S NAME: Augustus Ramirez Jr. : 1980 ACCT. NUMBER: [id number] DATE OF SERVICE: 10/30/21 START TIME: 9:00 AM END TIME: 9:50 AM FORMING ROLL OPERATOR HEAVY DUTY: Sophie Santiago LICSW TOPIC: Process Group Diagnoses: 296.32 (F33.1) Major Depressive Disorder, Recurrent Episode, Moderate, With anxious distress Alcohol Use Disorder 303.90 (F10.20) Moderate; 305.20 (F12.10) Cannabis Use Disorder Mild Provisional Diagnosis: Attention-Deficit/Hyperactivity Disorder 314.01 (F90.2) Combined presentationas evidenced by patient's report [facility] Day Treatment TRACK: 6A Telemedicine Visit: The patient's condition can be safely assessed and treated via synchronous audioand visual telemedicine encounter. Reason for Telemedicine Visit: Services only offered telehealth Originating Site (Patient Location): Patient's home Distant Site (Provider Location): [facility]: [facility] Consent: The patient/guardian has verbally consented [...] Symptom Management and Personal Safety. Pt reports struggling with guilt and shame. He identifies something that happened a long time ago that I suppressed. He is looking forward to meeting with an individual therapist this week to begin to dig deeper into this. Pt states that the shame affects his life in many ways. He identifies coping skills as: distraction and has a plan to go bike riding with his kids today. Denies safety concerns. Therapeutic Interventions/Treatment Strategies: Psychotherapist offered support, feedback and validation and reinforced use of skills. Treatment modalities used include Cognitive Behavioral Therapy. Interventions include Cognitive Restructuring: Explored impact of ineffective thoughts / distortions on mood and activity and Assisted patient in identifying new neutral/positive core beliefs and Coping Skills: Assisted patient in identifying 1-2 healthy distraction skills to reduce overall distress. Assessment: Patient response: Patient responded to session by accepting feedback, giving feedback, listening, focusing on goals, being attentive and accepting support Possible barriers to participation / learning include: and no barriers identified Health Issues: None reported Substance Use Review: Substance Use: alcohol and cannabis . and Last use: yesterday. a few cocktails and some thc Mental Status/Behavioral Observations Appearance: Appropriate Eye Contact: Good Psychomotor Behavior: Normal Attitude: Cooperative Orientation: All Speech Rate / Production: Normal Volume: Normal Mood: Anxious Depressed Anhedonia Affect: Worrisome Thought Content: Rumination Thought Form: [...] in their treatment plan. ADWOA Self October 30, 2021 documented in this encounter Plan of Treatment Upcoming Encounters Date Type Specialty Care Team Description 12/10/2021 [place] [address] [place] [phone] (Wo rk) 12/11/2021 [place] [address] [place] [phone] (Wo rk) 12/11/2021 [place] [address] [place] [phone] (Wo rk) 12/13/2021 [place] [address] [place] [phone] (Wo rk) 12/17/2021 [place] [address] [place] [phone] (Wo rk) 12/18/2021 [place] [address] [place] [phone] (Wo rk) documented as of this encounter Visit Diagnoses Diagnosis Current moderate episode of major depres sive disorder without prior episode (H) - Primary documented in this encounter Additional Health Concerns Assessment Noted Time PHQ-9 Depression Total Score: 14 09/30/2021 8:52 AM CD T documented as of this encounter Care Teams Warm In Worker Relationship Specialty Start Date End Date [facility] PCP - General 09/21/21 [id number] [place], [place] [phone] [facility] 09/21/21 [address] [phone] documented as of this encounter
--- OUTSIDE RECORDS SUMMARY | 2021-12-07 20:39 | XMS_ITS | Encounter Summary ---
:1980 Author Organization [place] Address [address] [place] [address] Care Team Providers Name Role Phone [facility] Primary Care Provider [phone] Sada Cagle Unavailable [phone] Reason for Visit Auth/Cert Specialty Diagnoses / Procedures Referred By Contact Refer red To Contact Behavioral Health Ur Adult Mh Pa rtial [facility] orth [address]lding [address], [address] [place] [address] Phone: Fax: Referral ID Status Reason Start Date Expiration Date Visits Requ ested Visits Authorized [id number] 1 1 Encounter Details Date Type Department Care Team Description 10/09/2021 Hospital Encounter [facility] Demarco Weaver [facility] Mental Health & MD Omar episode of major Addiction Services [address] depressive disorder [facility] without prior episode Blding [place], (H) (Primary Dx) [address] [place] [address] [address] [place], [place] (Work) [phone] Social History Tobacco Use [...] Group Note - Roby Tejada LMFT - 10/09/2021 11:44 PM CDT Psychotherapy Group Note PATIENT'S NAME: Augustus Ramirez Jr. : 1980 ACCT. NUMBER: [id number] DATE OF SERVICE: 10/09/21 START TIME: 2:00 PM END TIME: 2:50 PM PUBLIC HEALTH SANITARIAN TECHNICIAN: Roby Tejada LMFT TOPIC: EBP Group: Relationship Skills [facility] Adult Partial Hospitalization Program TRACK: [facility] NUMBER OF PARTICIPANTS: 8 Summary of Group / Topics Discussed: Relationship [...] relationship and interpersonal skills they have learned. One group member took some process time and discussed working through some grief and loss and many group members related. Well wishes were given at the end to 2 graduating group members. Patient Session Goals / Objectives: ??? Familiarized patients with awareness to the different types of relationships they may have with different people and substances in their lives ??? Discussed and practiced strategies to promote healthier understanding of interpersonal relationships with a focus on awareness of conflict, the causes of conflict, and the ways to transform conflict ??? Discussed symptoms of mental illness and its impact on their relationships Service [...] / provided feedback with other participants. Francisco took some process time and discussed dealing with a suicide of a nephew in August and also deal with his mother's terminal illness. He reported these events have caused him to think more about past regrets. The group gave him support and encouragement that he is not alone in his struggle. Demonstrated understanding of topics discussed through group discussion and participation, Demonstrated understanding of relationship skills and communication skills, Identified / Expressed personal readiness to incorporate effective communication skills, Verbalized understanding of communication skill s, communication challenges, and communication strengths and Practiced skills in session Treatment Plan: Patient has a current master individualized treatment plan. See [facility] treatment plan for more information. DENNIS Peterson Group Note - Adelaide Morris OTR/L - 10/09/2021 2:44 PM CDT Psychoeducation Group Note PATIENT'S NAME: Augustus Ramirez Jr. : 1980 ACCT. NUMBER: [id number] DATE OF SERVICE: 10/09/21 START TIME: 11:00 AM END TIME: 11:50 AM PUBLIC HEALTH SANITARIAN TECHNICIAN: Adelaide Morris OTR/L TOPIC: MH Life Skills Group: Cognitive Functioning [facility] Adult Partial Hospitalization Program TRACK: [facility] NUMBER OF PARTICIPANTS: 7 Service Modality: Video [...] of Group / Topics Discussed: Life Skills: Cognitive Flexibility and Functioning. Patients reflected on the importance of intellectual wellness for longterm cognitive health, improving adaptability, challenging current ways of thinking, and increasing creativity, knowledge, and skills. Patients were provided with an opportunity to gain awareness of how their mental health symptoms impact their current cognitive functioning as well as how this impacts their performance and participation in meaningful roles, relationships, and routines. Patients were provided opportunities to practice flexibility in interpretation and were guided to consider alternative interpretations by challenging assumptions, taking different perspectives, and slowing down to perceive more nuances and details. Patients were able to find situations where response inhibition and flexible thinking is helpful in managing symptoms. Patients were taught skills and strategies on how to monitor and improve cognitive performance through remediation or compensatory strategies. Patients were given opportunities to practice taught skills and techniques in session and how to apply to everyday life. Patient Session Goals / Objectives: ?? Identify activities that support intellectual wellness ?? Understand the benefits of engaging in intellectual challenges ?? Working together to practice cognitive flexibility tasks ?? Identifying application of skills to everyday situations ?? Identified how their mental health symptoms impact their functioning, focusing on specific cognitive challenges ?? Improved awareness of specific remediation and/or compensatory strategies to improve executive functioning skills and how this relates to mental health recovery Patient Participation / Response: Fully participated with the group by sharing personal reflections / insights and openly received / provided feedback with other participants. Patient presentation: congruent, demonstrated understanding of topic through discussion and participation in activities. Pt engaged in discussion when prompted. Treatment Plan: Patient has a current master individualized treatment plan. See [facility] treatment plan for more information. OLY Liriano/Yanna Group Note - Estefania Ellis OTR/L - 10/09/2021 2:04 PM CDT OT Clinic Group Note PATIENT'S NAME: Augustus Ramirez Jr. : 1980 ACCT. NUMBER: [id number] DATE OF SERVICE: 10/09/21 START TIME: 1:00 PM END TIME: 1:50 PM PUBLIC HEALTH SANITARIAN TECHNICIAN: Estefania Ellis OTR/L TOPIC: [facility] OT Group: Occupational Therapy Clinic [facility] Adult Partial Hospitalization Program TRACK: 1 NUMBER OF PARTICIPANTS: 7 Service Modality: Video Visit Telemedicine Visit: The patient's condition can be safely assessed and treated via synchronous audioand visual telemedicine encounter. Reason for Telemedicine Visit: Services only offered telehealth Originating Site (Patient Location): Patient's home Distant Site (Provider Location): [facility] Cons[facility]: The patient/guardian has verbally consented to: [...] patterns in context with eachgroup member. Patient were provided orientation to the virtual OT clinic and overview of purpose of [...] with other participants. Patient presentation: constricted affect observed which brightened briefly at times; active in engaging in a self care practice in session; reported positive benefit from the experience, Verbalized understanding of content and Patient would benefit from additional opportunities to practice the contentto be able to generalize it to their everyday life with increased intentionality, consistency, and efficacy in support of their psychiatric recovery Treatment Plan: Patient has a current master individualized treatment plan. See [facility] treatment plan for more information. MADI Melgar Group Note - Belkis Leonard RN - 10/09/2021 10:58 AM CDT Psychoeducation Group Note PATIENT'S NAME: Augustus Ramirez Jr. : 1980 ACCT. NUMBER: [id number] DATE OF SERVICE: 10/09/21 START TIME: 10:00 AM END TIME: 10:50 AM PUBLIC HEALTH SANITARIAN TECHNICIAN: Belkis Leonard RN TOPIC: Wellness Group: Mental Health Maintenance [facility] Adult Partial Hospitalization Program TRACK: [facility] NUMBER OF PARTICIPANTS: 7 Summary of Group / Topics Discussed: Mental [...] and the connection it has to resiliency ? Patients understood 3 core concepts of self -compassion and completed an exercise Service Modality: Video Visit Telemedicine Visit: The [...] a current master individualized treatment plan. See [facility] treatment plan for more information. Belkis Leonard RN Group Note - Kathleen Grajeda LMFT - 10/09/2021 9:05 AM CDT Process Group Note PATIENT'S NAME: Augustus Ramirez Jr. : 1980 ACCT. 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 Francisco reported feeling ???like shit?? today. ???I???m very anxious, stressed, sad, and dealing with a lot of guilt and shame, I have some ideas why but I???m not sure if that???s it.?? Reports being at mom???s house to prepare for her return home from the hospital. Identifies ???shaking?? from high levels of anxiety yesterday.?? Patient identified the following goal(s) to work towards today: ???I???m still learning and working on the deep breathing and mindfulness.?? Patient plans to use the following skills to achieve their goal: breathing, mindfulness. Discussed body-based interventions for coping with anxiety in the body. Patient anticipates the following barriers that may interfere with achieving their goal: ???I have a lot of negative self-talk, that???s for sure.?? Denies safety concerns, ???some nasty thoughts came up yesterday, ideas about self-harm but I did my action plan and called my .?? Reports was helpful and supportive during this time. Denies self-harm or self-injurious thoughts today, agreeable to letting staff know about changes or additional support needed. Endorses chemical use (???I had one drink last night?? ), and reports taking their medications as prescribed. Patient reports feeling proud of/grateful for: ???even though it didn???t make me feel good, I? ??m glad I went to my moms and accomplished something.?? Patient asked for the following supports from the group today: ???feedback.?? Francisco received supportive feedback from the group. Therapeutic Interventions/Treatment Strategies: Psychotherapist offered support, feedback and validation, set limits, provided redirection and reinforced use of skills. Treatment modalities used include Motivational Interviewing, Cognitive Behavioral Therapy and Dialectical Behavioral Therapy. Interventions include Cognitive Restructuring: Explored impact of ineffective thoughts / distortions on mood and activity, Coping Skills: Discussed use of self-soothe skills to decrease distress in the body, Assisted patient in identifying 1-2 healthy distraction skills to reduce overall distress, Discussed how the use of intentional in the moment actions can help reduce distress, Promoted understanding of how and when to apply grounding strategies to reduce distress and increase presence in the moment, Discussed meditation skills and addressed ways toimplement meditation skills and Assisted patient in understanding the purpose of planning / creating/ participating / sharing in positive experiences, Mindfulness: Encouraged a plan to use mindfulnessskills in daily life, Symptoms Management: Promoted understanding of their diagnoses and how it impacts their functioning and Emotions Management: Reinforced the purpose and biological basis of emotions and Increased awareness of daily mood patterns/changes. Assessment: Patient response: Patient responded to session by accepting feedback, giving feedback, listening, focusing on goals, being attentive and accepting support Possible barriers to participation / learning include: and no barriers identified Health Issues: None reported Substance Use Review: Substance Use: alcohol . and Last use: 1 drink last night Mental Status/Behavioral Observations Appearance: Appropriate Eye Contact: Fair Psychomotor Behavior: Normal Attitude: Cooperative Interested Friendly Pleasant Attentive Orientation: All Speech Rate / Production: Normal/ Responsive Emotional Normal Volume: Normal Mood: Anxious Depressed Normal Sad Grieving Fearful Agitated Affect: Appropriate Tearful Worrisome Thought Content: Clear and Safety denies [...] in their treatment plan. DENNIS Garcia October 09, 2021 documented in this encounter Plan of Treatment Upcoming Encounters Date Type Specialty Care Team Description 12/10/2021 Appointment Sarai Galindo MD [address] [place] [phone] (Wo rk) 12/11/2021 Appointment Sarai Galindo MD [address] [place], [place] [address] [place], [place] [phone] (Wo rk) 12/11/20[place] [address] [place] [address] [phone] (Wo rk) 12/13/2021 [place] [address] [place] [address] [phone] (Wo rk) 12/17/2021 Appointment Sarai Galindo MD [address] [place] [address] [phone] (Wo rk) 12/18/2021 Appointment Sarai Galindo MD [address] [place] [address] [phone] (Wo rk) documented as of this encounter Visit Diagnoses Diagnosis Current moderate episode of major depres sive disorder without prior episode (H) - Primary documented in this encounter Additional Health Concerns Assessment Noted Time PHQ-9 Depression Total Score: 14 09/30/2021 8:52 AM CD T documented as of this encounter Care Teams Size Changer Relationship Specialty Start Date End Date [facility] Medical PCP - General 09/21/21 [id number] [place] [address] S[facility] 09/21/[address] [place] [id number] documented as of this encounter
--- OUTSIDE RECORDS SUMMARY | 2021-12-07 20:39 | XMS_ITS | Encounter Summary ---
:1980 Author Organization [place] Address [address] [place] [address] Care Team Providers Name Role Phone [facility] Primary Care Provider [phone] Sada Cagle Unavailable [phone] Reason for Visit Mental Health Outpatient (Routine) - Pending Review Specialty Diagnoses / Procedures Referred By Contact Refer red To Contact Behavioral Health Procedures Ur Adult Mh Partial Ur Adult Mh Day Tx MH IOP (6A) [facility] [address], [address] [place], [place] [address] [address] [place], [place] Phone: [phone] Referral ID Status Reason Start Date Expiration Date Visits V isits Requested Authorized [id number] Pending 10/16/2021 10/16/2022 36 23 Review Encounter Details Date Type Department Care Team Description 11/01/2021 Hospital Encounter [facility] Demarco Weaver [facility] & MD Omar episode of major Addiction Services [address] depressive disorder [address] without prior episode [address] [place], (H) (Primary Dx) [facility] [phone] Social History Tobacco Use Types Packs/Day [...] Group Note - Sophie Santiago LICSW - 11/01/2021 12:49 PM CDT Psychoeducation Group Note PATIENT'S NAME: Augustus Ramirez Jr. : 1980 ACCT. NUMBER: [id number] DATE OF SERVICE: 11/01/21 START TIME: 11:00 AM END TIME: 11:50 AM RESAW MACHINE OPERATOR: Sophie Santiago LICSW TOPIC: MH Wellness Group: Health Maintenance [facility] Adult Mental Health Day Treatment TRACK: 6A Telemedicine Visit: The patient's condition can be safely assessed and treated via synchronous audioand visual telemedicine encounter. Reason for Telemedicine Visit: Services only offered telehealth Originating Site (Patient Location): Patient's home Distant Site (Provider Location): [facility]: [facility] Consent: The patient/guardian has [...] 6 Summary of Group / Topics Discussed: Health [...] a current master individualized treatment plan. See [facility] treatment plan for more information. ADWOA Self Group Note - Sophie Santiago LICSW - 11/01/2021 12:44 PM CDT Psychoeducation Group Note PATIENT'S NAME: Augustus Ramirez Jr. : 1980 ACCT. NUMBER: [id number] DATE OF SERVICE: 11/01/21 START TIME: 10:00 AM END TIME: 10:50 AM RESAW MACHINE OPERATOR: Sophie Santiago LICSW TOPIC: Wellness Group: [facility] Adult Mental Health Day Treatment TRACK: 6A Telemedicine Visit: The patient's condition can be safely assessed and treated via synchronous audioand visual telemedicine encounter. Reason for Telemedicine Visit: Services only offered telehealth Originating Site (Patient Location): Patient's home Distant Site (Provider Location): [facility]: [facility] Consent: The patient/guardian has [...] 5 Summary of Group / Topics Discussed: [facility]: Sleep: sleep hygiene: Patients explored the connection between sleep and mental illness. Patients learned about how adequate sleep can improve health, productivity, wellness, quality of life, and safety. Patient Session Goals / Objectives: ? Demonstrated understanding of sleep hygiene practices and benefits of sleep ? Identified sleep hygiene strategies to utilize ?? Described the connection between sleep disturbances and mental illness Patient Participation / Response: Moderately participated, sharing some personal reflections / insights and adequately adequately received / provided feedback with other participants. Demonstrated understanding of topics discussed through group discussion and participation and Identified / Expressed personal readiness to practice skills Treatment Plan: Patient has a current master individualized treatment plan. See [facility] treatment plan for more information. ADWOA Self Group Note - Sophie Santiago LICSW - 11/01/2021 12:06 PM CDT Process Group Note PATIENT'S NAME: Augustus Ramirez Jr. : 1980 ACCT. NUMBER: [id number] DATE OF SERVICE: 11/01/21 START TIME: 9:00 AM END TIME: 9:50 AM RESAW MACHINE OPERATOR: Sophie Santiago LICSW TOPIC: Process Group [...] Location): Patient's home Distant Site (Provider Location): [facility]: [facility] Consent: The patient/guardian has [...] Management and Personal Safety. Pt reports feeling connected with new therapist. This is a relief for him and he describes his plan to start looking at his past as bittersweet. He feels positive about selling his mother's mobile home this week. He denies safety concerns. Therapeutic Interventions/Treatment Strategies: Psychotherapist offered support, feedback and validation and reinforced use of skills. Assessment: Patient response: Patient responded to session by accepting feedback, giving feedback, listening, focusing on goals, being attentive and accepting support Possible barriers to participation / learning include: and no barriers identified Health Issues: None reported Substance Use Review: Substance Use: alcohol and cannabis . and Last use: yesterday a few cocktails and some thc Mental Status/Behavioral Observations Appearance: Appropriate Eye Contact: Good Psychomotor Behavior: Normal Attitude: Cooperative Orientation: All Speech Rate / Production: Normal Volume: Normal Mood: Depressed Affect: Subdued Thought Content: Rumination Thought Form: Coherent Logical Insight: Fair Plan: [...] in their treatment plan. ADWOA Self November 01, 2021 documented in this encounter Plan of Treatment Upcoming Encounters Date Type Specialty Care Team Description 12/10/2021 Appointment Sarai Galindo MD [address] [place], [place] [phone] (James wan) 12/11/2021 Appointment Sarai Galindo MD [address] [place] [address] (James wan) 12/11/2021 Appointment Sarai Galindo MD [address] [place] [address] (Wo rk) 12/13/2021 Appointment Health Sarai Weaver MD [address] [place], [place] [phone] (Wo rk) 12/17/2021 Appointment Sarai Galindo MD [address] [place], [place] [phone] (Wo rk) 12/18/2021 Appointment Sarai Galindo MD [address] [place], [place] [phone] (Wo rk) documented as of this encounter Visit Diagnoses Diagnosis Current moderate episode of major depres sive disorder without prior episode (H) - Primary documented in this encounter Additional Health Concerns Assessment Noted Time PHQ-9 Depression Total Score: 14 09/30/2021 8:52 AM CD T documented as of this encounter Care Teams Manager Human Capital Relationship Specialty Start Date End Date [facility] Medical PCP - General 09/21/21 [address] [place] [address] [facility] 09/21/21 [id number] [place] [id number] documented as of this encounter
--- OUTSIDE RECORDS SUMMARY | 2021-12-07 20:39 | XMS_ITS | Encounter Summary ---
:1980 Author Organization [facility] Address [address] [place] [address] Care Team Providers Name Role Phone [facility] Primary Care Provider [phone] Sada Cagle Unavailable [phone] Reason for Visit Auth/Cert Specialty Diagnoses / Procedures Referred By Contact Refer red To Contact Behavioral Health Ur Adult [facility] orth Blding [address], [address] [place] [address] Phone: Fax: Referral ID Status Reason Start Date Expiration Date Visits Requ ested Visits Authorized [id number] 1 1 Encounter Details Date Type Department Care Team Description 10/11/2021 Hospital Encounter [facility] Mental Health & MD Omar episode of major Addiction Services [address] depressive disorder [facility] without prior episode Blding WILKINSON, (H) (Primary Dx) [address] [place] [address] [address] [place], [place] (Work) [phone] Social History Tobacco Use [...] this encounter Miscellaneous Notes Group Note - Hubert David RN - 10/11/2021 3:07 PM CDT Psychoeducation Group Note PATIENT'S NAME: Augustus Ramirez Jr. : 1980 ACCT. NUMBER: [id number] DATE OF SERVICE: 10/11/21 START TIME: 2:00 PM END TIME: 2:50 PM RN CASE MANAGEMENT: Hubert David RN TOPIC: Wellness Group: Brain Health Service Modality: Video Visit Telemedicine Visit: The patient's condition can be safely assessed and treated via synchronous audioand visual telemedicine encounter. Reason for Telemedicine Visit: Covid19 Originating Site (Patient Location): Patient's home Distant [...] applicable laws and regulations related to telemedicine. [facility] Partial Hospitalization Program TRACK: [facility] NUMBER OF PARTICIPANTS: 8 Summary of Group / Topics Discussed: Brain Health: Pathophysiology of Mood Disorders: Patients were educated on mood disorder etiology and neuroscience, risk factors, symptoms, and pharmacologic, psychotherapeutic, and complementary treatment options. Patients were guided on a discussion of mental, behavioral, and physical symptoms and shared their symptoms with the group. Patient Session Goals / Objectives: ? Described what mood disorders are and identified risk factors ? Explained how chemical imbalances in the brain can cause symptoms and how medications work to reverse this imbalance ? Identified and described pharmacologic, psychotherapeutic, and complementary treatment options Patient Participation / Response: Fully participated with the group by sharing personal reflections / insights and openly received / provided feedback with other participants. Demonstrated understanding of topics discussed through group discussion and participation Treatment Plan: Patient has a current master individualized treatment plan. [facility] treatment plan for more information. Hubert David RN Group Note - Estefania Ellis OTR/L - 10/11/2021 2:52 PM CDT Psychoeducation Group Note PATIENT'S NAME: Augustus Ramirez Jr. : 1980 ACCT. NUMBER: [id number] DATE OF SERVICE: 10/11/21 START TIME: 1:00 PM END TIME: 1:50 PM RN CASE MANAGEMENT: Estefania Ellis OTR/L TOPIC: [facility] OT Group: Lifestyle Balance and Structure [facility] Hospitalization Program TRACK: 1 NUMBER OF PARTICIPANTS: 7 Service Modality: Video Visit Telemedicine Visit: The patient's condition can be safely assessed and treated via synchronous audioand visual telemedicine encounter. Reason for Telemedicine Visit: Services only offered telehealth Originating Site (Patient Location): Patient's home Distant Site (Provider Location): [facility] Consent: The patient/guardian has verbally consented [...] / Topics Discussed: Lifestyle Balance and Structure: OT Goal-setting & integration: Weekend Wellness: The group focused on reflecting on the past week and identifying insights and positive experiences that they want to build upon further. The group also focused on identifying needs and any concerns for the upcoming we ekend and created a list of activities and tasks that they might engage in to help support themselves and add structure their weekend. Facilitated the sharing of individual insights and plans with validation, support, and feedback provided. Patient Session Goals / Objectives: ??? Reflected on insights learned and positive experiences over the last week to help with their recovery and wellbeing ??? Identified needs and concerns for the upcoming weekend and identified ways to address these ??? Created a written list of possible ways to structure their weekend ??? Identified plan to support follow through on plans and reflection on progress made Patient Participation / Response: Fully participated with the group by sharing personal reflections / insights and openly received / provided feedback with other participants. Patient presentation: congruent affect observed; active in group discussion offering support to peers and sharing plans, Verbalized understanding of content and Patient would benefit from additional opportunities to practice the content to be able to generalize it to their everyday life with increasedintentionality, consistency, and efficacy in support of their psychiatric recovery Treatment Plan: Patient has a current master individualized treatment plan. [facility] treatment plan for more information. [facility] Group Note - Kathleen Grajeda LMFT - 10/11/2021 11:39 AM CDT Psychotherapy Group Note PATIENT'S NAME: Augustus Ramirez Jr. : 1980 ACCT. NUMBER: [id number] DATE OF SERVICE: 10/11/21 START TIME: 11:00 AM END TIME: 11:50 AM RN CASE MANAGEMENT: Kathleen Grajeda LMFT TOPIC: EBP Group: Relationship Skills [facility] Program TRACK: 1 NUMBER OF PARTICIPANTS: 8 Summary of Group / Topics Discussed: Relationship Skills: Boundaries: Patients were provided with a general overview of interpersonal boundaries and how lack of boundaries relates to symptoms and functioning. The purpose is to help patients identify boundary issues and gain awareness and skills to work towards healthier interpersonal boundaries. Current awareness of healthy boundary characteristics and barriers to establishing healthy boundaries were discussed. Patient Session Goals / Objectives: ??? Familiarized patients with the concept of interpersonal boundaries and their characteristics ??? Discussed and practiced strategies to promote healthier interpersonal boundaries ??? Identified boundary issues and identified plan to improve boundaries Service Modality: Video Visit Telemedicine Visit: [facility] [...] [facility] treatment plan for more information. [facility] Group Note - Kathleen Grajeda LMFT - 10/11/2021 10:26 AM CDT Psychotherapy Group Note PATIENT'S NAME: Augustus Ramirez Jr. : 1980 ACCT. NUMBER: [id number] DATE OF SERVICE: 10/11/21 START TIME: 10:00 AM END TIME: 10:50 AM RN CASE MANAGEMENT: Kathleen Grajeda LMFT TOPIC: EBP Group: Coping Skills [facility] TRACK: 1 NUMBER OF PARTICIPANTS: 8 Summary of Group / Topics Discussed: Coping [...] a variety of coping skills in daily life and Identified 2-3 positive coping strategies that have helped maintain / improve symptoms in the past Treatment Plan: Patient has a current master individualized treatment plan. [facility] treatment plan for more information. [facility] Group Note - Kathleen Grajeda LMFT - 10/11/2021 9:12 AM CDT Process Group Note PATIENT'S NAME: Augustus Ramirez Jr. : 1980 ACCT. NUMBER: [id number] DATE OF SERVICE: 10/11/21 START TIME: 9:00 AM END TIME: 9:50 AM RN CASE MANAGEMENT: Kathleen Grajeda LMFT TOPIC: Process Group Diagnoses: [...] and Community Resources/Discharge Planning. Francisco reported feeling ???okay, probably besides anxiety it???s probably the best I???ve felt all week?? today. Attributes this to ???letting stuff out, sharing, not bottling it up, instead of ignoringemotions, Patient identified the following goal(s) to work towards today: ???I???m driving up to getmy mom and hopefully have it happen without issue and get home before midnight.?? Patient plans to use the following skills to achieve their goal: ???mindfulness and breathing really help me to calm down in those situations.?? Patient anticipates the following barriers that may interfere with achieving their goal: ???getting out of the house sometimes is a barrier.?? Denies safety concerns, endorses chemical use ???the same as usual, had a drink before bed, talked with my ?? , and reports taking their medications as prescribed. Patient reports feeling proud of/grateful for: ???how far I???vecome in the group, sharing emotions and all that stuff. Patient asked for the following supports from the group today: ???feedback.?? Declined additional process time. Francisco received supportive [...] the moment actions can help reduce distress, Reviewed patients current calming practices and discussed a more formal way of practicing and accessing skills, Promoted understanding of how and when to apply grounding strategies to reduce distress and increase presence in the moment, Discussed meditation skills and addressed ways to implement meditation skills and Assisted patient in understanding the purpose of planning/ creating / participating / sharing in positive experiences, Symptoms Management: Promoted understanding of their diagnoses and how it impacts their functioning and Emotions Management: Reinforced thepurpose and biological basis of emotions and Increased awareness of daily mood patterns/changes. Assessment: Patient response: Patient responded to session by accepting feedback, giving feedback, listening, focusing on goals, being attentive and accepting support Possible barriers to participation / learning include: and no barriers identified Health Issues: None reported Substance Use Review: Substance Use: alcohol . and Last use: one drink last night Mental Status/Behavioral Observations Appearance: Appropriate Eye Contact: Fair Psychomotor Behavior: Normal Attitude: Cooperative Interested Friendly Pleasant Orientation: All Speech Rate / Production: Normal/ Responsive Normal Volume: Normal Mood: Anxious Normal Affect: Appropriate Worrisome Thought Content: Clear and [...] in their treatment plan. DENNIS Garcia October 11, 2021 documented in this encounter Plan of Treatment Upcoming Encounters Date Type Specialty Care Team Description 12/10/2021 Appointment Sarai Galindo MD [address] [place] [address] [phone] (Wo rk) 12/11/2021 Appointment Sarai Galindo MD [address] [place] [address] [phone] (Wo rk) 12/11/2021 Appointment Sarai Galindo MD [address] [place], [place] [address] [place], [place] [address] (Wo rk) 12/13/2021 Appointment Sarai Galindo MD [address] [place], [place] [phone] (Wo rk) 12/17/20[place] [address] [place] [phone] (Wo rk) 12/18/2021 Appointment Sarai Galindo MD [address] [place], [place] [address] [place], [place] [phone] (Wo rk) documented as of this encounter Visit Diagnoses Diagnosis Current moderate episode of major depres sive disorder without prior episode (H) - Primary documented in this encounter Additional Health Concerns Assessment Noted Time PHQ-9 Depression Total Score: 14 09/30/2021 8:52 AM CD T documented as of this encounter Care Teams Motor Vehicle Or Caravan Salesperson Relationship Specialty Start Date End Date [facility] Medical PCP - General 09/21/21 [id number] [place] [address] Sada Cagle [facility] 09/21/21 [id number] [address] [place] [id number] documented as of this encounter
--- OUTSIDE RECORDS SUMMARY | 2021-12-07 20:40 | XMS_ITS | Encounter Summary ---
:1980 Author Organization [facility] Address [address] [place] [address] Care Team Providers Name Role Phone None Primary Care Provider Unavailable Encounter Details Date Type Department Care Team Description 04/01/1995 X-Ray Tracking [facility] Tim Howe MD [address] [place] [id number] [phone] (James wan) Social History Tobacco Use Types Packs/Day Years Used Date Never Assessed Sex Assigned at Date Recorded Not on file documented as of this encounter Progress Notes Kenneth Howe MD - 04/01/1995 12:00 AM POLICYHOLDER INFORMATION CLERK ENTERED BY: DO X-RAY NUMBER: [id number] CLINIC LOCATION: [facility] ORDERING PHYSICIAN: Spencer Howe M.D. X-RAY PROCEDURE: LT. WRIST CYHOLDER INFORMATION CLERK documented in this encounter Plan of Treatment Upcoming Encounters Date Type Specialty Care Team Description 12/10/2021 Appointment Sarai Galindo MD [address] [place], [place] [phone] (Wo rk) 12/11/2021 Appointment Sarai Galindo MD [address] [place], [place] [phone] (Wo rk) 12/11/2021 Appointment Sarai Galindo MD [address] [place] [address] [phone] (Wo rk) 12/13/2021 Appointment Sarai Galindo MD [address] [place] [phone] (Wo rk) 12/17/2021 Appointment Sarai Galindo MD [address] [place] [address] [phone] (Wo rk) 12/18/2021 Appointment Sarai Galindo MD [address] [place] [address] [phone] (Wo rk) documented as of this encounter Visit Diagnoses Not on filedocumented in this encounter Care Teams Vice Admiral Relationship Specialty Start Date End Date None PCP - General 12/28/99 01/15/13 documented as of this encounter
--- OUTSIDE RECORDS SUMMARY | 2021-12-07 20:40 | XMS_ITS | Encounter Summary ---
:1980 Author Organization [place] Address [address] [place] [address] Care Team Providers Name Role Phone [facility] Primary Care Provider [phone] Sada Cagle Unavailable [phone] Reason for Visit Auth/Cert Specialty Diagnoses / Procedures Referred By Contact Refer red To Contact Behavioral Health Ur Adult Mh Pa rtial [facility] orth Blding [address], [address] [place] [address] Phone: Fax: Referral ID Status Reason Start Date Expiration Date Visits Requ ested Visits Authorized [id number] 1 1 Encounter Details Date Type Department Care Team Description 10/04/2021 Hospital Encounter [facility] Demarco Weaver [facility] Mental Health & MD Omar episode of major Addiction Services [address] depressive disorder [facility] without prior episode Blding AGUILA, (H) (Primary Dx) [address] [place] [address] [address] [place], [place] (Work) [address] Social History Tobacco [...] Group Note - Roby Tejada LMFT - 10/04/2021 3:32 PM CDT Psychotherapy Group Note PATIENT'S NAME: Augustus Ramirez Jr. : 1980 AC[address]. NUMBER: [id number] DATE OF SERVICE: 10/04/21 START TIME: 11:00 AM END TIME: 11:50 AM SALON SHAMPOO ASSISTANT: Roby Tejada LMFT TOPIC: EBP Group: Specialty Awareness [facility] Adult Partial Hospitalization Program TRACK: [facility] NUMBER OF PARTICIPANTS: 5 Summary of Group / Topics Discussed: Specialty Topics: Hope: The topic of hope was presented in order to help patients better understand the symptoms of hopelessness and how to become more hopeful. Patients discussed their current awareness of the topic and relevance to their functioning. Individual experiences with symptoms and treatment options were also discussed. Patients explored options for ongoing/future treatment and symptom management. Patient Session Goals / Objectives: ??? Discussed definition of hopelessness ??? Discussed how hopelessness impacts functioning ??? Set a plan to utilize skills to reduce hopelessness Service Modality: Video Visit Telemedicine Visit: The [...] care team. DENNIS Peterson Group Note - Jeane Kendrick RN - 10/04/2021 3:14 PM CDT Psychoeducation Group Note PATIENT'S NAME: Augustus Ramirez Jr. : 1980 ACCT. NUMBER: [id number] DATE OF SERVICE: 10/04/21 START TIME: 2:00 PM END TIME: 2:50 PM SALON SHAMPOO ASSISTANT: Jeane Kendrick RN TOPIC: Wellness Group: Medication Education and Management Service Modality: Video Visit Telemedicine Visit: The patient's condition can be safely assessed and treated via synchronous audioand visual telemedicine encounter. Reason for Telemedicine Visit: covid19 Originating Site (Patient Location): Patient's home Distant [...] applicable laws and regulations related to telemedicine. [facility] Adult Partial Hospitalization Program TRACK: 1 NUMBER OF PARTICIPANTS: 6 Summary of Group / Topics Discussed: Medication Educations and Management: Medication Jeopardy: Patients provided education regarding medication safety, antidepressants, side effects, neuroleptics, expected medication outcomes, knowledge of diagnosis, symptoms, and symptom management through an engaging jeopardy-style format. Patient Session Goals / Objectives: ? Participated in team-based Jeopardy game ? Identified strategies for safe use, handling, and disposal of medications ? Discussed basic aspects of medication safety, side effects, adverse outcomes and contraindications Patient Participation / Response: Fully participated with [...] the patient and multi- disciplinary care team. Jeane Kendrick RN Group Note - Roby Tejada LMFT - 10/04/2021 2:58 PM CDT Psychotherapy Group Note PATIENT'S NAME: Augustus Ramirez Jr. : 1980 ACCT. NUMBER: [id number] DATE OF SERVICE: 10/04/21 START TIME: 10:00 AM END TIME: 10:50 AM SALON SHAMPOO ASSISTANT: Roby Tejada LMFT TOPIC: EBP Group: Emotions Management [facility] Adult Partial Hospitalization Program TRACK: [facility] NUMBER OF PARTICIPANTS: 6 Summary of Group / Topics Discussed: Emotions [...] and strategies to employ to manage them, Identified emotions management strategies that have helped maintain / improve symptoms in the past and Identified / Expressed personal readiness to practice new emotions management skills Treatment Plan: Patient has an initial individualized treatment plan that was created as part of their diagnostic assessment / admission process. A master individualized treatment plan is in the process of being developed with the patient and multi- disciplinary care team. DENNIS Peterson Group Note - Adelaide Morris OTR/L - 10/04/2021 2:53 PM CDT Psychoeducation Group Note PATIENT'S NAME: Augustus Ramirez Jr. : 1980 ACCT. NUMBER: [id number] DATE OF SERVICE: 10/04/21 START TIME: 1:00 PM END TIME: 1:50 PM SALON SHAMPOO ASSISTANT: Adelaide Morris OTR/L TOPIC: PHP OT Group: Lifestyle Balance and Structure [facility] Adult Partial Hospitalization Program TRACK: [facility] NUMBER OF PARTICIPANTS: 5 Service Modality: Video [...] / Topics Discussed: Lifestyle Balance and Strucure: Benefits of Structure on Mental Health: Patients explored and learned about the benefits and possibilities of structure to create lifestyle balance that supports their mental and physical wellbeing. Patients were assisted to identify individualized weekend plans - including self-care, home management, socializing, leisure and reflective activities. Pt's recognized the benefits of activities on mental health and problem solved barriers to engagement and strategies to overcome them. Patients engaged in an experiential leisure activity to gain self-awareness and build milieu social aspects and reflected on the impact the experiential activity had on their mood. Patient Session Goals / Objectives: ??? Increased awareness of the importance of engagement in activities to support lifestyle balance and perceived quality of life ??? Identified strategies to recognize and challenge barriers to participation ??? Facilitated exploration of leisure ??? Practiced and reflected on how to generalize taught skills to their everyday life Patient Participation / Response: Fully participated with the group by sharing personal reflections / insights and openly received / provided feedback with other participants. Patient presentation: congruent, demonstrated understanding of topic through discussion and participation in activities. Francisco shared, interacted with a friend this week, dirt biking/ motorcycling - it was fun, being out there in nature. Have to do: help my neice move (belonging), move furniture (activity), detail my car, as weekend activity. Francisco will continue to benefit from engaging in groups tolearn and practice adaptive coping skills. Treatment Plan: Patient has a current master individualized treatment plan. See [facility] treatment plan for more information. OLY Liriano/Yanna Group Note - Kathleen Grajeda LMFT - 10/04/2021 9:11 AM CDT Process Group Note PATIENT'S NAME: Augustus Ramirez Jr. : 1980 ACCT. 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 Francisco reported feeling ???pretty anxious, I think it will subside eventually?? today. Patient identified the following goal(s) to work towards today: ???after group I want to find a therapist.?? Reports he has resources to navigate that. Patient plans to use the following skills to achieve their goal: ???time management.?? Patient anticipates the following barriers that may interfere with achievingtheir goal: ???I???m not sure that I have any, some may come up, I don???t know.?? Denies safety concerns, endorses chemical use (???I had a few cocktails after dinner last night?? ), and reports taking their medications as prescribed. Patient reports feeling proud of/grateful for: ???to be working on myself and for this program.?? Patient asked for the following supports from the group today: ???I???m not sure, if I think of anything I???ll let you all know.?? Declined additional process time. Francisco received supportive feedback from the group. Therapeutic Interventions/Treatment Strategies: Psychotherapist offered support, feedback and validation, set limits, provided redirection and reinforced use of skills. Treatment modalities used include Motivational Interviewing, Cognitive Behavioral Therapy and Dialectical Behavioral Therapy. Interventions include Behavioral Activation: Encouraged strategies to reduce individual procrastination and increase motivation by increasing goal-directed activities to enhance mood and reduce symptoms. and Emotions Management: Reviewed opposite action skill. Assessment: Patient response: Patient responded to session by accepting feedback, giving feedback, listening, focusing on goals, being attentive, accepting support and verbalizing understanding Possible barriers to participation / learning include: and no barriers identified Health Issues: None reported Substance Use Review: Substance Use: alcohol . and Last use: a couple cocktails last night Mental Status/Behavioral Observations Appearance: Appropriate Eye Contact: Fair Psychomotor Behavior: Normal Attitude: Cooperative Interested Friendly Pleasant Attentive Orientation: All Speech Rate / Production: Normal/ Responsive Monotone Normal Volume: Normal Mood: Anxious Normal Affect: Appropriate Flat Thought Content: Rumination and Safety denies any [...] in their treatment plan. DENNIS Garcia October 04, 2021 documented in this encounter Plan of Treatment Upcoming Encounters Date Type Specialty Care Team Description 12/10/2021 Appointment Sarai Galindo MD [address] [place] [phone] (Wo rk) 12/11/2021 [place] [address] [place], [place] [address], [place] [phone] (Wo rk) 12/11/2021 Appointment Sarai Galindo MD [address] [place], [place] [address] [place], [place] [address] (Wo rk) 12/13/2021 [place] [address] [place], [place] [address] [place], [place] [address] (Wo rk) 12/17/2021 [place] [address] [place] [address] [phone] (Wo rk) 12/18/2021 Appointment Sarai Galindo MD [address] [place], [place] [address] (Wo rk) documented as of this encounter Visit Diagnoses Diagnosis Current moderate episode of major depres sive disorder without prior episode (H) - Primary documented in this encounter Additional Health Concerns Assessment Noted Time PHQ-9 Depression Total Score: 14 09/30/2021 8:52 AM CD T documented as of this encounter Care Teams Changeover Operator Relationship Specialty Start Date End Date [facility] PCP - General 09/21/21 [address] [place] [address] Sada [facility] 09/21/21 [address] [place] [address] documented as of this encounter
--- OUTSIDE RECORDS SUMMARY | 2021-12-07 20:40 | XMS_ITS | Encounter Summary ---
:1980 Author Organization [place] Address [facility] [place] [address] Care Team Providers Name Role Phone None Primary Care Provider Unavailable Encounter Details Date Type Department Care Team Description 01/04/1997 Imported Phone Call [facility] Sal Mckay, [facility] [address] [place] [address] [place] [phone] [place] [address] (Wo rk) Social History Tobacco Use Types Packs/Day Years Used Date Never Assessed Sex Assigned at Date Recorded Not on file documented as of this encounter Progress Notes Iron Mckay MD - 01/04/1997 12:00 AM RANCH HELPER Mom, who works in the lab, states he has been having problems. They got into some legal difficulties. He has basically been told he cannot come back to school unless he gets back on his Ritalin. We had him on a 15, 10 and then 5 mg afternoon dose last year. I think we should go to 15, 15 now during school hours, then if he needs an afternoon dose, can deal with that. #100 written. They will pick it up at [facility]. He has a scheduled follow-up appointment here. Iron Mckay M.D./lrm H HELPER documented in this encounter Plan of Treatment Upcoming Encounters Date Type Specialty Care Team Description 12/10/2021 Appointment Behavioral Health Sarai Weaver MD [address] [address] (Wo rk) 12/11/2021 [place] [address] [place] [address] [phone] (Wo rk) 12/11/2021 Appointment Sarai Galindo MD [address] [place] [address] [phone] (Wo rk) 12/13/2021 [place] [address] [place] [address] [phone] (Wo rk) 12/17/2021 [place] [address] [place] [address] [phone] (Wo rk) 12/18/2021 Appointment Sarai Galindo MD [address] [place] [address] [phone] (Wo rk) documented as of this encounter Visit Diagnoses Not on filedocumented in this encounter Care Teams Program Management Manager Relationship Specialty Start Date End Date None PCP - General 12/28/99 01/15/13 documented as of this encounter
--- OUTSIDE RECORDS SUMMARY | 2021-12-07 20:40 | XMS_ITS | Encounter Summary ---
:1980 Author Organization [place] Address [facility] [place] [address] Care Team Providers Name Role Phone None Primary Care Provider Unavailable Encounter Details Date Type Department Care Team Description 07/15/1995 Imported Provider Omar Tillman Note [facility] MD Eddie [address] [place] [address] [address] [facility] [phone] [place] [address] (James wan) Social History Tobacco Use Types Packs/Day Years Used Date Never Assessed Sex Assigned at Date Recorded Not on file documented as of this encounter Progress Notes Omar Yu MD - 07/15/1995 12:00 AM CDT For the past day and a half he has had pink eye, right eye only. EXAM: No evident pain, no foreign body. There is some conjunctivitis on the outer aspect of the eyeand some mattering. Fluorescein stain is negative. IMPRESSION: Conjunctivitis. PLAN: Neosporin eye drops, 2 drops 3-4 times a day, maximum of 5 days. RTC p.r.n. Omar Yu M.D./lrtevin documented in this encounter Plan of Treatment Upcoming Encounters Date Type Specialty Care Team Description 12/10/2021 Appointment Behavioral Health Sarai Weaver MD [address] [place] [address] (Wo rk) 12/11/2021 [place] [address] [place] [address] [phone] (Wo rk) 12/11/2021 [place] [address] [place] [address] [phone] (Wo rk) 12/13/2021 [place] [address] [place] [address] [phone] (Wo rk) 12/17/2021 [place] [address] [place] [address] [phone] (Wo rk) 12/18/2021 Appointment Sarai Galindo MD [address] [place] [address] [phone] (Wo rk) documented as of this encounter Visit Diagnoses Not on filedocumented in this encounter Care Teams Camp Maintenance Supervisor Relationship Specialty Start Date End Date None PCP - General 12/28/99 01/15/13 documented as of this encounter
--- OUTSIDE RECORDS SUMMARY | 2021-12-07 20:40 | XMS_ITS | Encounter Summary ---
:1980 Author Organization [place] Address [address] [place] [address] Care Team Providers Name Role Phone None Primary Care Provider Unavailable Encounter Details Date Type Department Care Team Description 12/12/1997 Imported Provider [facility] Iron Mckay, Note [facility] [address] [place] [address] [place] [phone] [place] [address] (Wo rk) Social History Tobacco Use Types Packs/Day Years Used Date Never Assessed Sex Assigned at Date Recorded Not on file documented as of this encounter Progress Notes Iron Mckay MD - 12/12/1997 12:00 AM CDT Augustus is now 17 years of age. He comes back in to followup on his AD/HD issues. He would like to get back on Ritalin. He says school is going pretty good, but he has a couple classes he is really struggling in. He says when he is on the Ritalin he can definitely tell there is a difference. He is tended only to take it during school days and not at home. Presently he has some difficulties with a court appearance coming up on the for a shoplifting charge. I have asked him specifically if he feltthat he can control that kind of behavior and he said sure he can. I am concerned whether there may be some impulsiveness tendencies here. At this time, he says he does not have any difficulty picking up a noon dose at school. I did write a note for him so that he can take that. In the past we have had him at sometimes up to 15 mg on Ritalin, and he seems to think that 10 mg might be enough to do it and I showed him some grafts that it may not last long enough and may not have enough peak effect forhim with his significantly increased body stature. Nevertheless, we will start at 10 twice a day, #60 written for 12/12 and 01/12. Then I would like to hear back from him certainly by the Holidays as to how the first half of the year has gone or sooner if he just does not feel it is working well or if he is having any problems with it. Iron Mckay M.D./beverley documented in this encounter Plan of Treatment Upcoming Encounters Date Type Specialty Care Team Description 12/10/2021 [place] [address] [place] [phone] (Wo rk) 12/11/2021 [place] [address] [place] [phone] (Wo rk) 12/11/2021 [place] [address] [place] [phone] (Wo rk) 12/13/2021 [place] [address] [place] [phone] (Wo rk) 12/17/2021 [place] [address] [place] [phone] (Wo rk) 12/18/2021 [place] [address] [place] [phone] (Wo rk) documented as of this encounter Visit Diagnoses Not on filedocumented in this encounter Care Teams Clothing Consultant Relationship Specialty Start Date End Date None PCP - General 12/28/99 01/15/13 documented as of this encounter
--- OUTSIDE RECORDS SUMMARY | 2021-12-07 20:40 | XMS_ITS | Encounter Summary ---
:1980 Author Organization [place] Address [address] [place] [address] Care Team Providers Name Role Phone [facility] Primary Care Provider [phone] Sada Cagle Unavailable [phone] Encounter Details Date Type Department Care Team Description 10/01/2021 Telephone [facility] Dco Leonard RN & Addiction Services [place] [address] [place], [place] [phone] Social History Tobacco Use [...] Team Description 12/10/2021 Appointment Sarai Galindo MD [address] [place] [address] (Wo rk) 12/11/2021 Appointment Sarai Galindo MD [address] [place] [address] (Wo rk) 12/11/2021 Appointment Sarai Galindo MD [address] [place] [address] (Wo rk) 12/13/2021 Appointment Sarai Galindo MD [address] [place] [address] (Wo rk) 12/17/2021 Appointment Sarai Galindo MD [address] [place], [place] [address] (Wo rk) 12/18/2021 Appointment Sarai Galindo MD [address] [place], [place] [phone] (Wo rk) documented as of this encounter Visit Diagnoses Not on filedocumented in this encounter Additional Health Concerns Assessment Noted Time PHQ-9 Depression Total Score: 14 09/30/2021 8:52 AM CD T documented as of this encounter Care Teams Field Marketing Coordinator Relationship Specialty Start Date End Date [facility] PCP - General 09/21/21 [address] [place], [place] [phone] [facility] 09/21/21 [address] [place] [address] documented as of this encounter
--- OUTSIDE RECORDS SUMMARY | 2021-12-07 20:40 | XMS_ITS | Encounter Summary ---
:1980 Author Organization [place] Address [address] [place] [address] Care Team Providers Name Role Phone [facility] Primary Care Provider [phone] Sada Cagle Unavailable [phone] Encounter Details Date Type Department Care Team Description 09/30/2021 Telephone [facility] Generic, Behavioral Behavioral Health In alex Worthington MD [address] [place] [address] Social History Tobacco Use Types Packs/Day Years [...] have Coronavirus/COVID-19? documented as of this encounter Miscellaneous Notes Telephone Encounter - Jose Jeane - 10/16/2021 12:31 PM CDT ----- Message from DENNIS Garcia sent at 10/16/2021 12:16 PM CDT ----- Regarding: Susanne KENNY dc admit Scheduling Request Patient Name: Augustus Ramirez Jr. Location of programming: virtual Start Date: September Group: BH6A on Thursday, Thursday, and Thursday at 9:00 AM to 12:00 PM Attending Provider (): Dr Weaver Number of visits to be scheduled: 36 Duration of Appointment in minutes: 180 Visit Type: Zoom - 2657 Additional notes: Pt is discharging from [facility] end of day 10/16/21. Please remove from [facility]. Starting 6A n 10/18/21, admit is completed. See transfer SBAR for additional information. Telephone Encounter - Jeane Garcia - 10/10/2021 7:45 AM CDT ----- Message from DENNIS Garcia sent at 10/10/2021 7:38 AM CDT ----- Regarding: please add [facility] appointments Scheduling Request Patient Name: Augustus Ramirez Location of programming: virtual Start Date: September Group: PHP track 1 on Thursday, Thursday, Thursday, , and Thursday at 9:00 AM to 3:00 PM Attending Provider (): Dr Weaver Number of visits to be scheduled: 5 Duration of Appointment in minutes: 300 Visit Type: Zoom - 2657 Additional notes: Please add visits for this patient through 10/16/21 Thank you Telephone Encounter - Jeane Garcia - 09/30/2021 9:53 AM CDT ----- Message from ADWOA Bradley sent at 09/30/2021 9:40 AM CDT ----- Regarding: start PHP on Thu Scheduling Request Patient Name: Augustus Ramirez JrRichard Location of programming: Virtual Start Date: 10/02 Group:[facility] Program Track One??[id number]??9AM - 3PM??M-F?? Attending Provider (): Dr Omar Weaver. Number of visits to be scheduled: 50 Duration of Appointment in minutes: 360 Visit Type: Zoom - 2657 Additional notes: documented in this encounter Plan of Treatment Upcoming Encounters Date Type Specialty Care Team Description 12/10/2021 Appointment Sarai Galindo MD [address] [place], [place] [address] (Wo rk) 12/11/2021 Appointment Sarai Galindo MD [address] [place], [place] [address] (Wo rk) 12/11/2021 Appointment Sarai Galindo MD [address] [place], [place] [phone] (Wo rk) 12/13/2021 Appointment Sarai Galindo MD [address] [place] [place], [place] [address] (Wo rk) 12/17/2021 [place] [address] [place] [phone] (Wo rk) 12/18/2021 Appointment Sarai Galindo MD [address] [place], [place] [address] (Wo rk) documented as of this encounter Visit Diagnoses Not on filedocumented in this encounter Additional Health Concerns Assessment Noted Time PHQ-9 Depression Total Score: 14 09/30/2021 8:52 AM CD T documented as of this encounter Care Teams Store Specialist Relationship Specialty Start Date End Date [facility] Medical PCP - General 09/21/21 [address] [place] [address] [facility] 09/21/21 [address] [place] [address] documented as of this encounter
--- OUTSIDE RECORDS SUMMARY | 2021-12-07 20:40 | XMS_ITS | Encounter Summary ---
:1980 Author Organization [place] Address [facility] [place] [address] Care Team Providers Name Role Phone None Primary Care Provider Unavailable Encounter Details Date Type Department Care Team Description 02/04/1999 Imported Provider Augustus Peña, [facility] [address] [place], [place] [id number] Social History Tobacco Use Types Packs/Day Years Used Date Never Assessed Sex Assigned at Date Recorded Not on file documented as of this encounter Progress Notes Augustus Alberto - 02/04/1999 12:00 AM PUBLIC EMPLOYMENT MEDIATOR SINUSITIS AND BRONCHITIS. He has been sick for a couple of weeks with coughing, snuffy nose and stomach pain and diarrhea. Noblood in his stool. He has not had recurrent problems with diarrhea. EXAM: ENT, neck, heart and lungs are all clear, though he has a few scattered wheezes in his chest. IMP: Bronchitis and sinusitis. PLAN: Zithromax, CBC and sed rate. If continued diarrhea or other symptoms, then to return for further assessment. Augustus Alberto M.D./cap IC EMPLOYMENT MEDIATOR Augustus Alberto - 02/04/1999 12:00 AM PUBLIC EMPLOYMENT MEDIATOR Sed rate and CBC were normal. Augustus Alberto M.D./cap IC EMPLOYMENT MEDIATOR documented in this encounter Plan of Treatment Upcoming Encounters Date Type Specialty Care Team Description 12/10/2021 Appointment Behavioral Health Sarai Weaver MD [address] [place], [place] [phone] (Wo rk) 12/11/2021 [place] [address] [place] [address] [phone] (Wo rk) 12/11/2021 [place] [address] [place] [address] [phone] (Wo rk) 12/13/2021 [place] [address] [place] [address] [phone] (Wo rk) 12/17/2021 [place] [address] [place] [address] [phone] (Wo rk) 12/18/2021 [place] [address] [place] [address] [phone] (Wo rk) documented as of this encounter Visit Diagnoses Not on filedocumented in this encounter Care Teams Commercial Collector Relationship Specialty Start Date End Date None PCP - General 12/28/99 01/15/13 documented as of this encounter
--- OUTSIDE RECORDS SUMMARY | 2021-12-07 20:40 | XMS_ITS | Encounter Summary ---
:1980 Author Organization [place] Address [address] [place] [address] Care Team Providers Name Role Phone [facility] Primary Care Provider [phone] Sada Cagle Unavailable [phone] Encounter Details Date Type Department Care Team Description 09/21/2021 Telephone [facility], Behavior[facility] MD Elin [address] [place] [phone] Social History Tobacco Use Types Packs/Day Years Used Date Never Assessed Sex Assigned at Date Recorded Not on file COVID-19 Exposure Response Date Recorded In the last 10 days, have you been in contact with No / Unsu re 09/21/2021 12:19 PM CDT someone who was confirmed or suspected to have Coronavirus/COVID-19? documented as of this encounter Miscellaneous Notes Telephone Encounter - Cindi Cha - 09/21/2021 10:24 PM CDT R: Pt in [facility] ER awaiting placement. Per chart, [place] preferred 10:20pm bed search [place]: No beds available [facility]: No beds available [facility]: No beds available [facility]: No beds available [facility]: [facility] beds available [facility]: No beds available [facility]: No beds available [facility]: No beds available Pt placed on work list until appropriate placement is available Telephone Encounter - Tristan Esparza - 09/21/2021 2:11 PM CDT S: 2;10pm Nesha w/ JAN called Intake w/ clinical on a 41/M present in the [facility] w/ SI. B: The pt is currently at the [facility] presenting w/ family. Pt attempted suicide via trapping himself in his garage and having the car run; pt was stopped by his . Pt endorses that plan and intent. Stressors: Mother is dying of cancer, marital issues, nephew who completed suicide. Denies: HI, AH/ VH, and SIB. Guardian: Self The pts MH Hx is as follows: Anxiety The pt endorse using any substances.- THC and Alcohol The pt has not been IP for MH before. The pt is Rx MH medications: None. OP Services: Unknown. There is no concern for aggression this visit. There is no concern for HI. Per labour market economist the pt can ambulate independently. Per labour market economist the pt is indep with ADLs. The pt does not have any known medical concerns. Covid negative Utox needs to be collected. A: CHARLINE- holdable R: The pt is currently in the [facility] ER awaiting bed placement. 2:14pm Pt has been added to the work-list. Intake waiting labs for bed placement. Intake working on identifying appropriate bed placement. documented in this encounter Plan of Treatment Upcoming Encounters Date Type Specialty Care Team Description 12/10/2021 Appointment Sarai Galindo MD [address] [place], [place] [phone] (James wan) 12/11/2021 Appointment Sarai Galindo MD [address] [place], [place] [phone] (James wan) 12/11/2021 Appointment Sarai Galindo MD [address] [place], [place] [phone] (James wan) 12/13/2021 Appointment Sarai Galindo MD [address] [place], [place] [address] (Wo rk) 12/17/2021 Appointment Behavioral Health Sarai Weaver MD [address] [place], [place] [phone] (Wo rk) 12/18/2021 Appointment Behavioral Sarai Joshi MD [address] [place], [place] [phone] (Wo rk) documented as of this encounter Visit Diagnoses Not on filedocumented in this encounter Care Teams Pig Farm Manager Relationship Specialty Start Date End Date [facility] PCP - General 09/21/21 [id number] [place], [place] [phone] S[facility] 09/21/21 [id number] [address] [place] [id number] documented as of this encounter
--- OUTSIDE RECORDS SUMMARY | 2021-12-07 20:40 | XMS_ITS | Encounter Summary ---
:1980 Author Organization [place] Address [facility] [place] [address] Care Team Providers Name Role Phone None Primary Care Provider Unavailable Encounter Details Date Type Department Care Team Description 05/16/1997 Imported Refill [facility] Iron Mckay, [facility] [address] [place] [address] [place] [address] [place], [place] [phone] (Wo rk) Social History Tobacco Use Types Packs/Day Years Used Date Never Assessed Sex Assigned at Date Recorded Not on file documented as of this encounter Progress Notes Iron Mckay MD - 05/16/1997 12:00 AM LUNCH WAGON OPERATOR MEDICATION NAME: Ritalin DOSAGE: 10 mg FREQUENCY: 1-1/2 b.i.d. NUMBER: 100 COMMENTS: The patient apparently took his prescription for Ritalin to a pharmacy which is no longercovered under their insurance program. He is apparently still having stomachaches and we may want to look at Adderall. Stepmother will talk to him about that. Iron Mckay M.D./lrtevin H WAGON OPERATOR documented in this encounter Plan of Treatment Upcoming Encounters Date Type Specialty Care Team Description 12/10/2021 Appointment Sarai Galindo MD [address] [place] [address] (Wo rk) 12/11/2021 Appointment Sarai Galindo MD [address] [place] [phone] (Wo rk) 12/11/2021 Appointment Sarai Galindo MD [address] [place] [address] [phone] (Wo rk) 12/13/2021 [place] [address] [place] [phone] (Wo rk) 12/17/2021 [place] [address] [place] [address] [phone] (Wo rk) 12/18/2021 Appointment Sarai Galindo MD [address] [place] [address] [phone] (Wo rk) documented as of this encounter Visit Diagnoses Not on filedocumented in this encounter Care Teams Machine Heel Seat Laster Relationship Specialty Start Date End Date None PCP - General 12/28/99 01/15/13 documented as of this encounter
--- OUTSIDE RECORDS SUMMARY | 2021-12-07 20:40 | XMS_ITS | Encounter Summary ---
:1980 Author Organization [place] Address [address] [place] [address] Care Team Providers Name Role Phone None Primary Care Provider Unavailable Encounter Details Date Type Department Care Team Description 04/01/1997 Imported Provider [facility] [address] [place] [address] Social History Tobacco Use Types Packs/Day Years Used Date Never Assessed Sex Assigned at Date Recorded Not on file documented as of this encounter Progress Notes Omar Talamantes MD - 04/01/1997 12:00 AM MECHANICAL CAR CHECKER AGE: 17 TIME TO TRIAGE: - HEIGHT: - WEIGHT: - ALLERGIES: NKDA TEMP: 99.4 PULSE: - MEDICATIONS: Ritalin 15 mg b.i.d. RESP: - BP: - DATE OF INJURY: - LAST TETANUS (If necessary): - NURSING OBSERVATIONS: Sore throat and earache. NURSE: - SUBJECTIVE: Presents with upper airway congestion, runny nose, sore throat and now complaining of ear pain. He has had occasional ear infections in the past. OBJECTIVE: On examination his ears show left otitis, his throat is clear. Chest is clear. ASSESSMENT: Otitis media. PLAN: Amoxicillin 500 t.i.d. Omar Talamantes M.D./saurav ANICAL CAR CHECKER documented in this encounter Plan of Treatment Upcoming Encounters Date Type Specialty Care Team Description 12/10/2021 [place] [address] [place] [address] [phone] (Wo rk) 12/11/2021 [place] [address] [place] [address] [phone] (Wo rk) 12/11/2021 [place] [address] [place] [address] [phone] (Wo rk) 12/13/2021 [place] [address] [place] [address] [phone] (Wo rk) 12/17/2021 [place] [address] [place] [address] [phone] (Wo rk) 12/18/2021 [place] [address] [place] [address] [phone] (Wo rk) documented as of this encounter Visit Diagnoses Not on filedocumented in this encounter Care Teams Kit Planner Relationship Specialty Start Date End Date None PCP - General 12/28/99 01/15/13 documented as of this encounter
--- OUTSIDE RECORDS SUMMARY | 2021-12-07 20:40 | XMS_ITS | Encounter Summary ---
:1980 Author Organization [facility] Address [address] [place] [id number] Care Team Providers Name Role Phone [facility] Primary Care Provider [phone] Sada Cagle Unavailable [phone] Reason for Visit Reason Comments Suicidal Encounter Details Date Type Department Care Team Description 09/21/2021 - [facility] Darien Vargas MD [facility] [address] [place], [place] [id number] Suicidal ideation 09/23/2021 [facility], Kathleen Quevedo MD [facility] [address] [place], [place] [id number] Dept Parvez, Devon العلي MD [facility] [address] [place], [place] [id number] [address] Liza Mcdaniel MD [facility] [address] [facility] [address] [place] [address] [place] Hong Frost MD [facility] [address] [place], [place] [phone] Joni Doe MD [facility] [address] [place] [address] [phone] Omar Martin MD [facility] [address] [place] [address] Social History Tobacco Use Types Packs/Day Years Used Date Never Assessed Sex Assigned at Date Recorded Not on file COVID-19 Exposure Response Date Recorded In the last 10 days, have you been in contact with No / Unsu re 09/21/2021 12:19 PM CDT someone who was confirmed or suspected to have Coronavirus/COVID-19? documented as of this encounter Last Filed [...] documented in this encounter Discharge Instructions Discharge Donavan Nugent - 09/23/2021 11:28 AM CDT Aftercare Plan If I am feeling unsafe or I am in a crisis, I will: Contact my established care providers Call the National Suicide Prevention Lifeline: 988 Go to the nearest emergency room Call 911 Warning signs that I or other people might notice when a crisis is developing for me: I shut down, and have a harder time talking to others Things I am able to do on my own to cope or help me feel better: Exercise, go on walks with the dog,do yard work, progressive muscle relaxation. Things that I am able to do with others to cope or help me better: Spend time with my kids, play games with family, watch movies Things I can use or do for distraction: yard work, walks with the dog. Changes I can make to support my mental health and wellness: Continue to talk about feelings with others, and engage in outpatient programming. People in my life that I can ask for help: , In Laws, Friends [facility] has a mental health crisis team you can call 22/09: [facility] Crisis [phone] Other things that are important when I???m in crisis: My family is the most important thing to me. Additional resources and information: Crisis Lines Crisis Text Line Text 921931 You will be connected with a trained live crisis counselor to provide support. National Hope Line 1.800.SUICIDE [5316067] Community Resources Fast Tracker Linking people to mental health and substance use disorder resources Centaur.org [place] [facility] Warm Line Peer to peer support Thursday thru Thursday, 12 pm to 10 pm [phone] [place] [address] National Providence on Mental Illness (NOEMÍ) 774.234.6298 or 1.888.NOEMÍ.HELPS Mental Health Apps My3 https://Think Good Thoughts.org/ VirtualHopeBox https://[facility] OKCD/apps/amdmhau-csnf-dfi/ [facility] SCHEDULING: Today you were seen by a licensed mental health professional through [facility] ([facility]) for a crisis assessment in the Emergency Department at [facility]. It is recommended that you follow up with your estabished providers (psychiatrist, mental health therapist, and/or primary care doctor - as relevant) as soon as possible. Coordinators from [facility] will be calling you in the next 24-48 hours to ensure that you have the resources you need. You canalso contact [facility] coordinators directly at [phone]. You have been scheduled the following appointments: 09/30/21 8:00 AM Maryellen Burt (Outpatient Intake) Additionally, a referral has been made with the [facility], who will follow up with you by e-mail or phone. [facility] [phone] [facility] maintains an extensive network of licensed behavioral health providers to connect patients with the services they need. We do not charge providers a fee to participate in our referral network. We match patients with providers based on a patient???s specific needs, insurance coverage, and location.Our first effort will be to refer you to a provider within your care system, and will utilize providers outside your care system as needed. documented in this encounter Medications at Time of Discharge Medication Sig Dispensed Refills Start Date End Date amphetamine-dextroamphetam Take 20 mg by mouth 0 ine (ADDERALL) 20 MG 3 times daily tablet Ascorbic Acid (VITAMIN C) Take 500 mg by 0 500 MG CAPS mouth daily cetirizine (ZYRTEC) 10 MG Take 10 mg by mouth 0 tablet daily Vitamin D3 Take 125 mcg by 0 (CHOLECALCIFEROL) 125 MCG mouth daily (5000 UT) tablet valACYclovir (VALTREX) Take 1 tablet 20 tablet 0 01/16/2013 10/02/2021 1000 mg tablet (1,000 mg) by mouth 2 times daily documented as of this encounter Progress Notes Donavan España - 09/23/2021 11:03 AM CDT [facility] Crisis Reassessment Augustus Ramirez was reassessed at the request of Vandana Branch ROBERTA for the following reasons: patientstabilizing in the ED. Pt was first seen on 09/21/2021 by Nesha Mcduffie; see the initial assessment note for details. Patient Presentation Initial ED presentation details: Patient brought himself to the ED following an attempt to end his life by carbon monoxide poisoning. Patient discussed what happened who a friend who work in mental health, and came to the emergency department following her recommendation. Current patient presentation: Patient is calm, polite, and cooperative. Patient endorses a strong desire to live, and get his life back on track. Patient shows insight into his current presentation, and identifies feeling remorse for not reaching out to his support network. Changes observed since initial assessment: Patient endorsed wanting to do whatever is necessary to get my life back on track. Patient is agreeable to follow up with an outpatient treatment program, and therapy. Risk of Harm Is the patient experiencing current suicidal ideation: No Does the patient have thoughts of harming others? No Mental Status Exam Affect: Appropriate Appearance: Appropriate Attention Span/Concentration: Attentive? Eye Contact: Engaged Fund of Knowledge: Appropriate Language /Speech Content: Fluent Language /Speech Volume: Normal Language /Speech Rate/Productions: Normal Recent Memory: Intact Remote Memory: Intact Mood: Normal Orientation to Person: Yes Orientation to Place: Yes Orientation to Time of Day: Yes Orientation to Date: Yes Situation (Do they understand why they are here?): Yes Psychomotor Behavior: Normal Thought Content: Clear Thought Form: Goal Directed Additional Collateral Information Patient is goal oriented, and reports no longer having suicidal ideation. Patient reports connectingwith extended care assessors has been helpful for him to identify aspects of his life that he needs to change. Patient wants to engage in mental health care, and work through his feelings related to recent loss, and emotions with his mother having cancer. Patient reports that he has good supports in place, and feels that he can reach out to them if he begins to have increase symptoms; however feels with therapy, and engaging with his support network that he can keep himself safe. Therapeutic Intervention The following therapeutic methodologies were employed when working with the patient: Establishing rapport, Active listening, Establish a discharge plan and Safety planning. Patient response to intervention: actively engaged. Disposition Recommended disposition: Individual Therapy and Programmatic Care: Day Treatment Program Reviewed case and recommendations with attending provider. Attending Name: Dr. Vinnie Martin Attending concurs with disposition: Yes Patient concurs with disposition: Yes Final disposition: Individual therapy and Programmatic care: Referral made for darline brown and francia. Clinical Substantiation of Recommendations After therapeutic assessment, intervention and aftercare planning by ED care team and LMHP and in consultation with attending provider, the patient's circumstances and mental state were appropriate foroutpatient management. It is the recommendation of this clinician that pt discharge with OP MH support. A this time the pt is not presenting as an acute risk to self or others due to the following factors: Patient is no longer endorsing suicidal thoughts. Patient also reports a strong desire to live, and was able to engage in safety planning. In meeting with teletypewriter installer he is able to demonstrate future focused thinking, and does describe remorse for not reaching out for help prior to acting on his thoughts. Patient continues to endorse hope, and states he was shutting down and escaping from problems rather than letting others in and talking about them. Patient reports that he is going to take some timeoff of work, to focus on his mental health. Assessment Details Total duration spent on the patient case in minutes: .75 hrs CPT code(s) utilized: 04961 - Psychotherapy (with patient) - 45 (38-52*) min Donavan España Aftercare Plan If I am feeling unsafe or I am in a crisis, I will: Contact my established care providers Call the National Suicide Prevention Lifeline: 988 Go to the nearest emergency room Call 911 Warning signs that I or other people might notice when a crisis is developing for me: I shut down, and have a harder time talking to others Things I am able to do on my own to cope or help me feel better: Exercise, go on walks with the dog,do yard work, progressive muscle relaxation. Things that I am able to do with others to cope or help me better: Spend time with my kids, play games with family, watch movies Things I can use or do for distraction: yard work, walks with the dog. Changes I can make to support my mental health and wellness: Continue to talk about feelings with others, and engage in outpatient programming. People in my life that I can ask for help: , In Laws, Friends [facility] has a mental health crisis team you can call 22/09: [facility] [phone] Other things that are important when I???m in crisis: My family is the most important thing to me. Additional resources and information: Crisis Lines Crisis Text Line Text 086522 You will be connected with a trained live crisis counselor to provide support. National Hope Line 1.800.SUICIDE [9678240] Community Resources Fast Tracker Linking people to mental health and substance use disorder resources fasttrackermn.org [place] [facility] Warm Line Peer to peer support Thursday thru Thursday, 12 pm to 10 pm [phone] [place] [address] National [employer] on Mental Illness (NOEMÍ) 779.683.0904 or 1.888.NOEMÍ.HELPS Mental Health Apps My3 https://myStreetSparkpp.org/ VirtualHopeBox https://Ubiquisys.org/apps/ovmuchv-lfcm-uqo/ [facility] SCHEDULING: Today you were seen by a licensed mental health professional through [facility] ([facility]) for a crisis assessment in the Emergency Department at [facility]. It is recommended that you follow up with your estabished providers (psychiatrist, mental health therapist, and/or primary care doctor - as relevant) as soon as possible. Coordinators from [facility] will be calling you in the next 24-48 hours to ensure that you have the resources you need. You canalso contact [facility] coordinators directly at [phone]. You have been scheduled the following appointments: 09/30/21 8:00 AM Maryellen Burt (Outpatient Intake) Additionally, a referral has been made with the [facility], who will follow up with you by e-mail or phone. [facility] [phone] [facility] maintains an extensive network of licensed behavioral health providers to connect patients with the services they need. We do not charge providers a fee to participate in our referral network. We match patients with providers based on a patient???s specific needs, insurance coverage, and location.Our first effort will be to refer you to a provider within your care system, and will utilize providers outside your care system as needed. Associated attestation - Renata Contreras - 10/03/2021 3:50 PM CDT Service Performed and Documented by Clinical Trainee Note reviewed and clinical supervision by FERNANDO Dunn, ADWOA, October 03, 2021 Kizzy Garcia LICSW - 09/21/2021 9:53 PM CDT Outdoor Landscape Architect contacted central intake @ [phone] regarding bed status. Staff disclosed that patientwants to stay in the [facility] area and that there are about 10-15 people before him. documented in this encounter Consult Notes Nesha Mcduffie - 09/21/2021 2:30 PM CDT Diagnostic Evaluation Consultation Crisis Assessment Patient was assessed: remote Patient location: [facility] ED Was a release of information signed: Yes. Providers included on the release: primary clinic Referral Data and Chief Complaint Augustus Ramirez is a 41 year old, who uses he/him pronouns, and presents to the ED alone. Patient is referred to the ED by family/friends. Patient is presenting to the ED for the following concerns: suicide attempt. Informed Consent and Assessment Methods Patient is his own guardian. Outdoor Landscape Architect met with patient and explained the crisis assessment process, including applicable information disclosures and limits to confidentiality, assessed understanding of the process, and obtained consent to proceed with the assessment. Patient was observed to be able to participate in the assessment as evidenced by alert, oriented, responsive to questions. Assessment methods included conducting a formal interview with patient, review of medical records, collaboration with medical staff, and obtaining relevant collateral information from family and community providers when available.. Over the course of this crisis assessment provided reassurance, offered validation, engaged patient in problem solving and disposition planning and assisted in processing patient's thoughts and feelingrelating to stressors. Patient's response to interventions was agreeable to recommended level of care. Summary of Patient Situation Augustus Ramirez is a 41 year old male, and father of 3. Pt presents to ED today after talking with a friend who is a psychologist and recommended pt come to ED for evaluation. Pt went to [employer] yesterday and closed the door with vehicle running in suicide attempt. Pt was stopped by his and admits if she had not stopped him, he is aware he could've . Pt describes feeling like he is losing control, unable to focus and concentrate, mind racing and have never felt this depressed. Pt states he cannot function in current state and wants peace and quiet. Pt identifies current stressors toinclude his mother who is dying of cancer, nephew that just committed suicide and marital issues with . Pt has no mental health providers. He does not share his stressors or feelings with others. Pt identifies as a support. Pt has hx of anxiety but has managed this with routine, exercise and pet. Brief Psychosocial History Pt is with 3 children, one of whom has Autism and a 13 year old from another relationship that is not speaking with him. Pt briefly notes issues in marriage and seeking emotional support from someone else. Pt has 2 siblings. His sister's son just committed suicide. 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 Mother with hx of paranoid schizophrenia. Significant Clinical History Pt reports hx of anxiety that he manages through exercise and routine as well as ADHD. He does not have any mental health history. He did go to some marital counseling with his some time ago but did not connect with therapist. Pt admits to marijuana and alcohol use. Risk Assessment ESS-6 1.a. Over the past 2 weeks, have you had thoughts of killing yourself? Yes 1.b. Have you ever attempted to kill yourself and, if yes, when did this last happen? Yes yesterday 2. Recent or current suicide plan? Yes 3. Recent or current intent to act on ideation? Yes 4. Lifetime psychiatric hospitalization? No 5. Pattern of excessive substance use? No 6. Current irritability, agitation, or aggression? Yes Scoring note: BOTH 1a and 1b must be yes for it to score 1 point, if both are not yes it is zero. All others are 1 point per number. If all questions 1a/1b - 6 are no, risk is negligible. If one of 1a/1b is yes, then risk is mild. If either question 2 or 3, but not both, is yes, then risk is automatically moderate regardless of total score. If both 2 and 3 are yes, risk is automatically high regardless of total score. Score: 5, high risk Does the patient have access to lethal means? Yes - describe carbon monoxide poisoning Does the patient engage in non-suicidal self-injurious behavior (NSSI/SIB)? no Does the patient have thoughts of harming others? No Is the patient engaging in sexually inappropriate behavior? no Current Substance Abuse Is there recent substance abuse? marijuana and alcohol Was a urine drug screen or blood alcohol level obtained: Yes pending Mental Status Exam Affect: Appropriate Appearance: Appropriate Attention Span/Concentration: Attentive Eye Contact: Engaged Fund of Knowledge: Appropriate Language /Speech Content: Fluent Language /Speech Volume: Normal Language /Speech Rate/Productions: Normal Recent Memory: Intact Remote Memory: Intact Mood: Anxious, Depressed and Irritable Orientation to Person: Yes Orientation to Place: Yes Orientation to Time of Day: Yes Orientation to Date: Yes Situation (Do they understand why they are here?): Yes Psychomotor Behavior: Normal Thought Content: Suicidal Thought Form: Flight of Ideas and Obsessive/Perseverative History of commitment: No Medication Psychotropic medications: No Medication changes made in the last two weeks: No Current Care Team Primary Care Provider: Yes. Name: Medical. Location: . Date of last visit: none. Frequency: unknown. Perceived helpfulness: unknown. Psychiatrist: No Therapist: No Educational Institution Curator: No CTSS or ARMHS: No ACT Team: No Other: No Diagnosis 1 Adjustment disorder, With depressed mood F43.21 2 Unspecified anxiety disorder (F41.9) 300.0 3 Attention-deficit/hyperactivity disorder, Predominantly hyperactive/impulsive presentation F90.1) 314.01 Clinical Summary and Substantiation of Recommendations Pt attempted suicide yesterday by carbon monoxide poisoning until interrupted by . Pt endorses depressed mood, hopeless and helpless feelings, high anxiety, worry, mind racing, difficulty concentrating, irritability. Pt has hx of ADHD. Pt using substances including marijuana and alcohol. Limited support system. No current mental health providers. Significant stressors including mother who is dying of cancer, marital stress and nephew that just committed suicide. Pt recommended for inpatient hospitalization due to immediate risk to self. Pt is on a CHARLINE but is agreeable to inpatient. Disposition Recommended disposition: Inpatient Mental Health Reviewed case and recommendations with attending provider. Attending Name: Dr Vargas Attending concurs with disposition: Yes Patient concurs with disposition: Yes Guardian concurs with disposition: NA Final disposition: Inpatient mental health . Inpatient Details (if applicable): Is patient admitted voluntarily:Pt currently on CHARLINE ??? Patient aware of potential for transfer if there is not appropriate placement? Yes ??? Patient is willing to travel outside of the [facility] for placement? Yes Behavioral Intake Notified? Yes: Date: 09/21/21 Time: 2:30p. Outpatient Details (if applicable): Aftercare plan and appointments placed in the AVS and provided to patient: No. Rationale: pending inpatient Was lethal means counseling provided as a part of aftercare planning? No; Assessment Details Patient interview started at: 1:30p and completed at: 2:10p. Total duration spent on the patient case in minutes: 1.75 hrs CPT code(s) utilized: 18048 - Psychotherapy for Crisis - 60 (30-74*) min FERNANDO Krause, [facility] - Triage & Transition Services documented in this encounter ED Notes Redd Klein RN - 09/23/2021 12:15 PM CDT Patient alert and oriented. Respirations even and unlabored. All discharge education given. All questions answered. All medications explained in detail. Patient denies further needs and states that they are ready to leave. Patient ambulated out of the ER with steady gait. Omar Martin MD - 09/23/2021 11:54 AM CDT Patient has been reassessed by mental health team, and they feel that he is stable to go home. He isable to contract for safety. The RN feels comfortable with this plan as well, and when I spoke to the patient and his , they also voiced strong desire to go home. He is able to clearly tell me doesnot want hurt himself he says that he very much likes living in fact, and there is now good outpatient follow-up for him in place from a mental health team. We will plan for discharge in accordance with their advice. Omar Martin MD 09/23/21 1154 Redd Klein RN - 09/23/2021 7:15 AM CDT Room checked for safety. Patient resting at this time Devon Hannon MD - 09/23/2021 5:49 AM CDT Patient signout note 41-year-old male awaiting mental health bed availability. No significant overnight events. Remains on a 72-hour hold. Diet is ordered, as needed's ordered. Signed out to the dayshift team MD Parvez Reynolds Jerome Richard, MD 09/23/21 9550 Bianca Ghosh RN - 09/22/2021 6:30 PM CDT Pt returned from walk. Bianca Ghosh RN - 09/22/2021 6:14 PM CDT Pt going for a walk in the [facility] lob with ERT & security. Provider and charge nurse okay with him going walking d/t pt cooperative and agreeable. Bianca Ghosh RN - 09/22/2021 6:05 PM CDT Pt requesting sleep aid cocktail to go to sleep. Did explain to pt it was only 1800 and early for sleep aids, but would try to coordinate going for a walk. Bianca Ghosh RN - 09/22/2021 1:45 PM CDT Pt has meal tray, and brought ice pack for right foot per pt request. Vandana Branch LICSW - 09/22/2021 11:05 AM CDT Triage & Transition Services, Extended Care Therapy Progress Note Patient: Augustus goes by Augustus, uses he/him pronouns Date of Service: September 22, 2021 Site of Service: Ed Patient was seen virtually ([employer] or other teleconferencing device). Presenting problem: Augustus is followed related to 72 Hour Hold: pt reports frustration with wait for therapy, inpt programming. ED wait is increasing symptoms, anxiety. Please see initial [facility] Crisis Assessment completed by Nesha Mcduffie on 09/22/2021 for complete assessment information. Notable concerns include Suicide attempt, increased anxiety and depressed mood following loss of nephew to suicide and mother's terminal illness. Individuals Present: Augustus & ADWOA Yañez Session start: 1020 Session end: 1102 Session duration in minutes: 42 Session number: 1 Anticipated number of sessions or this episode of care: 1-4 CPT utilized: 28235 - Psychotherapy (with patient) - 45 (38-52*) min Current Presentation: Francisco is awake and oriented x3, continues to board in ED awaiting MH placement, reports increasing symptoms of anxiety and depression with the wait as he is unable to leave room, is away from his children. Pt is employing anxiety reducing skill including breathing exercises and physical exercise (jumping jacks). These provide some relieve. Discussed suicide attempt, pt reports he is not experiencing SI at this time, does not want to . States he is unclear about what he was thinking when he shut garage door while his car was running, admits his was in the house at the time; also that a windowin the garage was open. Pt feels it was 'cry for help'. Reports feeling overwhelmed, has been shouldering much of responsibility of his mother's cares at this time and at times feeling all alone. Deathof his nephew was devastating, reports no one knew his nephew was struggling. Pt is tearful, wants mental health help. Would like to be considered for outpt programming. Is forward thinking and does demonstrate insight into current situation. Mental Status Exam: Appearance: awake, alert and dressed in hospital scrubs Attitude: cooperative Eye Contact: good Mood: anxious, sad and depressed Affect: mood congruent Speech: clear, coherent Psychomotor Behavior: no evidence of tardive dyskinesia, dystonia, or tics Thought Process: logical and goal oriented Associations: no loose associations Thought Content: no evidence of suicidal ideation or homicidal ideation Insight: good Judgement: intact Oriented to: time, person, and place Attention Span and Concentration: intact Recent and Remote Memory: intact Diagnosis: Adjustment disorder, With depressed mood F43.21 2 Unspecified anxiety disorder (F41.9) 300.0 3 Attention-deficit/hyperactivity disorder, Predominantly hyperactive/impulsive presentation F90.1) 314.01 Therapeutic Intervention(s): Provided active listening, unconditional positive regard, and validation. Engaged in safety planning. Coached on coping techniques/relaxation skills to help improve distress tolerance and managing intense emotions. Reviewed healthy living that supports positive mental health, including looking at sleep hygiene, regular movement, nutrition, and regular socialization. Identified and practiced coping skills. Engaged in relaxation training (e.g. meditation, progressive muscle relaxation, etc.). Identified stress relief practices. Treatment Objective(s) Addressed: The focus of this session was on rapport building, orienting the patient to therapy, identifying andpracticing coping strategies, processing feelings related to recent losses, retriggered trauma, assessing safety and building self-esteem . Progress Towards Goals: Patient reports stable symptoms. Pt is engaged, cooperative. Actively participates and applies suggestions and alternative coping skills. Case Management: Pt is currently on a 72 hour hold, expiring on 09/25. Pt is open to outpt programming. Request to EC coordinators completed to identify appropriate outpt programs for pt. General Recommendations: Continue to monitor for harm. Consider: Use a positive, direct and calm approach. Pt's tend to matchthe energy/mood of the staff. Keep focus positive and upbeat, Provide the pt with options to providea sense of control. Try to tell the pt what they can do instead of what they can't do, Allow family c alls/visits and Listen in a neutral, non-judgmental way. Offer reassurance Plan: Pt continues on 72 hour hold with referral to inpt MH programming. Pt denies SI, HI, will be assessed during ED stay for possible change of disposition as appropriate, including outpt programming.. Plan for Care reviewed with Assigned Medical Provider? Yes, Dr Wheeler. ADWOA Yañez Licensed Mental Health Professional (LMHP), [facility] [phone] Bianca Ghosh RN - 09/22/2021 10:16 AM CDT Augustus speaking with Vandana CONTRERAS chainstitch sewing machine operator. Bianca Ghosh RN - 09/22/2021 9:09 AM CDT Pt security watch, 1:1 sitter discontinued. Bianca Ghosh RN - 09/22/2021 9:07 AM CDT Notified FIBER DESIGNER that pt would like to speak with DEC. Bianca Ghosh RN - 09/22/2021 9:05 AM CDT Pt requesting to speak with therapist and that is why he is here. Bianca Ghosh RN - 09/22/2021 9:03 AM CDT Moved pt from room 5 to 4. Pt irritable, anxious Bianca Ghosh RN - 09/22/2021 7:48 AM CDT Notified Charge Nurse about patient request to speak with the head of the facility about his matter. Bianca Ghosh RN - 09/22/2021 7:42 AM CDT Pt requesting for speak with the head of the facility d/t the 72 hour hold. Breakfast offered, declined stating I'm not going to eat until I am at the next facility. Maame Lyon RN - 09/22/2021 1:59 AM CDT Pt notified of 72 hour hold and given rights. Pt read rights and understands why hold was placed. Maame Lyon RN - 09/21/2021 7:34 PM CDT Pt called RN into room. Pt expressed he thinks he would be better off at home with his insteadof sitting in this room. Pt is thankful and admits he wants and needs help. Pt states I don't wantto have to wait here until Thursday for placement. Bianca Ghosh RN - 09/21/2021 6:56 PM CDT Pt has personal hygiene products in room. Bianca Ghosh RN - 09/21/2021 6:26 PM CDT Pt requesting treadmill report has a hard time sitting still. Bianca Ghosh RN - 09/21/2021 3:38 PM CDT Pt has meal tray. Bianca Ghosh RN - 09/21/2021 2:14 PM CDT Brought pt a glass of ice water. Bianca Ghosh RN - 09/21/2021 1:27 PM CDT Pt reports was in running car with garage closed yesterday for 10 minutes. Mom terminal cancer- moving in end of summer Nephew committed suicide last Daughter 13 year old who isn't speaking with him from a previous relationship emotional involved with another man found out yesterday, & has 2 daughter's age 7 and 10 with . and 2 daughters from current relationship live in same household with pt. Bianca Ghosh RN - 09/21/2021 1:00 PM CDT 1:1 sister present Bianca Ghosh RN - 09/21/2021 12:45 PM CDT Gave pt CHARLINE rights and read rights to patient. Redd Klein RN - 09/21/2021 12:19 PM CDT Attempted to kill himself yesterday with the car running in the garage. Darien Vargas MD - 09/21/2021 12:14 PM CDT History Chief Complaint: Suicidal HPI Augustus Ramirez Jr. is a 41 year old male who presents following a suicide attempt.The patient states he has had lots of stressors in his life recently including a family member with stage four cancer and challenges with his daughter. Yesterday, he found out his has been emotionally involved with another person. Due to all of these events he sat in his closed garage with his car running. He is unsure how long he was sitting in his car, but he did not lose consciousness. His found him and opened the garage. He states he has never had a suicide attempt prior to this. Due to these events he chose to present here. Of note, he smoke marijuana and has three alcoholic drinks daily. Review of Systems Neurological: No loss of consciousness Psychiatric/Behavioral: Positive for suicidal ideas. All other systems reviewed and are negative. Allergies: The patient has no known allergies. Medications: No current outpatient medications on file. Past Medical History: The patient denies past medical history. Social History: The patient was unaccompanied to the ED. The patient currently smokes marijuana and drinks alcohol daily. Physical Exam Patient Vitals for the past 24 hrs: BP Temp Temp src Pulse Resp SpO2 09/21/21 1457 123/76 97.7 ??F (36.5 ??C) Oral 56 21 97 % 09/21/21 1222 119/81 98 ??F (36.7 ??C) Temporal 89 20 99 % Physical Exam Vitals reviewed. HENT: Head: Normocephalic. Right Ear: Tympanic membrane normal. Left Ear: Tympanic membrane normal. Nose: Nose normal. Mouth/Throat: Mouth: Mucous membranes are moist. Eyes: Pupils: Pupils are equal, round, and reactive to light. Cardiovascular: Rate and Rhythm: Normal rate and regular rhythm. Pulmonary: Effort: Pulmonary effort is normal. Breath sounds: Normal breath sounds. Abdominal: General: Abdomen is flat. Palpations: Abdomen is soft. Musculoskeletal: General: Normal range of motion. Skin: General: Skin is warm. Capillary Refill: Capillary refill takes less than 2 seconds. Neurological: General: No focal deficit present. Mental Status: He is alert and oriented to person, place, and time. Psychiatric: Comments: Depressed admits to lack of contact with daughter. Recent infidelity with . Thoughts of suicide including sitting in a garage with the car running yesterday. Still thinks of suicide Emergency Department Course Laboratory: Labs Ordered and Resulted from Time of ED Arrival to Time of ED Departure COVID-19 VIRUS (CORONAVIRUS) BY PCR - Normal Result Value SARS CoV2 PCR Negative Emergency Department Course: Mental Health Risk Assessment PSS-3 Date and Time Over the past 2 weeks have you felt down, depressed, or hopeless? Over the past 2 weeks have you had thoughts of killing yourself? Have you ever attempted to kill yourself? When did this last happen? User 09/21/21 1220 yes yes yes -- RAT C-SSRS ([place]) Date and Time Q1 Wished to be (Past Month) Q2 Suicidal Thoughts (Past Month) Q3 Suicidal Thought Method Q4 Suicidal Intent without Specific Plan Q5 Suicide Intent with Specific Plan Q6 Suicide Behavior (Lifetime) Within the Past 3 Months? RETIRED: Level of Risk per Screen Screening Not Complete User 09/21/21 1323 yes yes yes no yes no -- -- -- JN Suicide assessment completed by mental health (D.E.C., HOTEL DINING ROOM CASHIER, etc.) Reviewed: I reviewed nursing notes and vitals Assessments: 1223 I obtained history and examined the patient as noted above. I rechecked and updated the patient regarding the laboratory results and the plan for care. Consults: 2776 I spoke with BEN regarding the patient. Disposition: Care of the patient was transferred to my colleague Dr. Hand pending DEC placement. Impression & Plan Medical Decision Making: Patient presents to the emergency room with thoughts of suicide and depression. Patient is history of marijuana use occasional alcohol use. But smart phrases at a significant medical work-up. Care was discussed with the clinical psychologist who was examined the patient in the emergency room. Placed the patient on an CHARLINE hold due to active suicidal ideation with active actions on the suicidal ideation including sick and sitting in a car with a running car in a group close space. Patient be Kept on an CHARLINE and hold in the emergency room pending bed placement. Likely will require observation over the weekend due to lack of bed availability in the mental health system. Care will be signed out to Dr. Hand pending bed placement will likely be here for the next 24 hours. Diagnosis: ICD-10-CM 1. Suicidal ideation R45.851 Discharge Medications: New Prescriptions No medications on file Scribe Disclosure: I, Kennedy Hayward, am serving as a scribe at 12:23 PM on 09/21/2021 to document services personally performed by Darien Vargas MD based on my observations and the provider's statements to me. Darien Vargas MD 09/21/21 1807 Kathleen Hand MD - 09/21/2021 12:14 PM CDT Signed out at change of shift. In brief presented with suicidal ideation after recent stressors and was sitting in running car in garage yesterday. Medically clear and evaluated by DEC. Unable to contract for safety. Awaiting inpatient mental health. No home medications reported. On CHARLINE. Patient requested medication to help with sleep. Ordered. Patient requested speaking to physician. I met with him at 7:50pm. He is feeling improved regarding his mental health and ability to contract for safety. Is clear that he has support at home, wants to be alive for family including and children, and is voicing several steps he can take if he were to feel worse. No firearms in the home, cannot have them either due to past felony. Understands that information from family is also incorporated. At time of sign out a primary concern was his difficulty crhist for safety. At sign out I was told that if that changes then repeat assessment by mental health would be appropriate. My discussion with the patient is consistent with initial provider's impressions. Repeat [facility] assessment requested. At 9:13pm I spoke with Kizzy from [facility]. Multiple high risk factors and needs admission. Patient was redirectable to this and understands it. Anxiety and ADHD worsened by knowing he is in this room for awhile until inpatient bed available. I ordered ativan which patient declined. Requested 5mg melatonin (instead of orderset 3mg) which wasgiven. CHARLINE . Given frequent need to redirect patient towards admission and need to stay for it, 72 hour hold signed. Kathleen Hand MD 09/22/21 0236 Hong Frost MD - 09/21/2021 12:[address] [facility] ED Mental Health Handoff Note: Brief HPI: This is a 41 year old male signed out to me by Dr. Wheeler. See initial ED Provider note for full details of the presentation. Medically stable for inpatient mental health admission: Yes. Evaluated by mental health: Yes. The recommendation is for inpatient mental health treatment. Bed search in process Safety concerns: At the time I received sign out, there were no safety concerns. Hold Status: Active Orders Legal Emergency Hospitalization Hold (72 Hr Hold) Frequency: Effective Now Start Date/Time: 09/22/21 0159 Number of Occurrences: Until Specified Health Officer Authority to Detain (CHARLINE) Frequency: Effective Now Start Date/Time: 09/21/21 1232 Number of Occurrences: Until Specified Order Comments: This patient presented with circumstances that have led me to be reasonably suspicious that the patient is at significant risk of self-harm. The patient's judgment to this situation appears to be impaired. Given the circumstances in which the patient presented, it is likely that the patient is at significant risk of attempting self harm if this situation is not investigated further. I am highly concerned that the patient is mentally ill and currently cannot safely care for oneself. This represents endangerment to the patient's well-being and safety, and I am placing a Health Officer Authority hold upon the patient at this time. Exam: Patient Vitals for the past 24 hrs: BP Temp Temp src Pulse Resp SpO2 09/22/21 0746 108/83 98.2 ??F (36.8 ??C) Oral 78 18 98 % 09/22/21 0610 118/80 -- -- 76 18 99 % 09/21/21 1457 123/76 97.7 ??F (36.5 ??C) Oral 56 21 97 % ED Course: Medications hydrOXYzine (ATARAX) tablet 25 mg (has no administration in time range) LORazepam (ATIVAN) tablet 1 mg (has no administration in time range) melatonin tablet 5 mg (5 mg Oral Given 09/21/212158) There were no significant events during my shift. Patient was signed out to the oncoming provider, Dr. Doe Impression: ICD-10-CM 1. Suicidal ideation R45.851 Plan: 1. Awaiting inpatient mental health admission/transfer. RESULTS: Results for orders placed or performed during the hospital encounter of 09/21/21 (from the past 24 hour(s)) Urine Drugs of Abuse Screen Status: Abnormal Collection Time: 09/21/21 6:20 PM Narrative The following orders were created for panel order Urine Drugs of Abuse Screen. Procedure Abnormality Status --------- ------ Drug abuse screen 1 urin...[[id number]] Abnormal Final result Please view results for these tests on the individual orders. Drug abuse screen 1 urine (ED) Status: Abnormal Collection Time: 09/21/21 6:20 PM Result Value Ref Range Amphetamines Urine Screen Positive (A) Screen Negative Barbiturates Urine Screen Negative Screen Negative Benzodiazepines Urine Screen Negative Screen Negative Cannabinoids Urine Screen Positive (A) Screen Negative Cocaine Urine Screen Negative Screen Negative Opiates Urine Screen Negative Screen Negative MD Margot Du Edgar Ronald, MD 09/22/21 1500 documented in this encounter Miscellaneous Notes Safe - Kizzy Garcia [facility] - 09/21/2021 9:51 PM CDT Augustus Ramirez Jr. September 21, 2021 SAFE Note Critical Safety Issues: Patient remains suicidal with a plan to hurt himself. Patient is willing to be transferred to a mental health unit to see a psychiatrist. ??? Current Suicidal Ideation/Self-Injurious Concerns/Methods: Other turning the car on in the garage and inhale Co2 ??? Current or Historical Inappropriate Sexual Behavior: No ??? Current or Historical Aggression/Homicidal Ideation: None - N/A ??? Triggers: Patient reported having a nephew who committed suicide recently, patient's mother has stage four cancer, patient has a handicapped teenager and patient's marriage is not stable. Guardianship Status: Patient is his own guardian.. Guardianship paperwork is not required. This patient is a child/adolescent: No This patient has additional special visitor precautions: No Updated care team: Yes: Outdoor Landscape Architect updated Dr. Hand For additional details see full LMHP assessment. ADWOA Ramírez Pharmacy-Admission Medication History - Darlyn Bhakta [facility] - 09/21/2021 6:48 PM CDT Admission medication history interview status for this patient is complete. See [facility] admission navigator for allergy information, prior to admission medications and immunization status. Medication history interview done, indicate source(s): Patient Medication history resources (including written lists, pill bottles, clinic record):None Pharmacy: [facility] Changes made to BRIM CUTTER medication list: Added: Adderall, cetirizine, vitamin C, vitamin D Changed: None Reported as Not Taking: None Removed: None Actions taken by pharmacist (provider contacted, etc):None Additional medication history information:None Medication reconciliation/reorder completed by provider prior to medication history? N (Y/N) Prior to Admission medications Medication Sig Last Dose Taking? Auth Provider Long-Term End Date amphetamine-dextroamphetamine (ADDERALL) 20 MG tablet Take 20 mg by mouth 3 times daily 09/21/2021 [id number] Yes Unknown, Entered By History Ascorbic Acid (VITAMIN C) 500 MG CAPS Take 500 mg by mouth daily 09/21/2021 at am Yes Unknown, Entered By History cetirizine (ZYRTEC) 10 MG tablet Take 10 mg by mouth daily 09/21/2021 at am Yes Unknown, Entered By History Vitamin D3 (CHOLECALCIFEROL) 125 MCG (5000 UT) tablet Take 125 mcg by mouth daily 09/21/2021 at am Yes Unknown, Entered By History Darlyn Bhakta PharmD, [facility] Emergency Medicine Clinical Pharmacist [phone] Safe - Nesha Mcduffie - 09/21/2021 2:16 PM CDT Augustus Ramirez . September 21, 2021 SAFE Note Critical Safety Issues: Augustus Ramirez is a 41 year old male that presents to ED following suicide attempt yesterday. Pt wentto garage yesterday with door closed and sat in vehicle. Pt admits to understanding risk of . Pt's attempt was interrupted by intervening. Pt stating he feels like he is losing control and cannot function. Endorses current suicidal ideation, hopelessness and helplessness. Significant stressors including nephew that 2 weeks ago by suicide, marital stressors, mother in end stage of cancer. ??? Current Suicidal Ideation/Self-Injurious Concerns/Methods: Other running vehicle - carbon monoxide poisoining ??? Current or Historical Inappropriate Sexual Behavior: No ??? Current or Historical Aggression/Homicidal Ideation: None - N/A ??? Triggers: recent loss of nephew to suicide, marital stress, mother dying Guardianship Status: is his own guardian.. Guardianship paperwork is not required. This patient is a child/adolescent: No This patient has additional special visitor precautions: No Updated care team: Yes: Dr Vargas 2:15pm Intake contacted at 2:20p For additional details see full LMHP assessment. Nesha Mcduffie documented in this encounter Plan of Treatment Upcoming Encounters Date Type Specialty Care Team Description 12/10/2021 Appointment Behavioral Health Sarai Weaver MD [address], [place] [address] (Wo rk) 12/11/2021 Appointment Sarai Galindo MD [address] [place], [place] [id number] (Wo rk) 12/11/2021 Appointment Sarai Galindo MD [address] [place], [place] [id number] (Wo rk) 12/13/2021 Appointment Sarai Galindo MD [address] [place], [place] [id number] (Wo rk) 12/17/2021 Appointment Sarai Galindo MD [address] [place], [place] [address] (Wo rk) 12/18/2021 Appointment Sarai Galindo MD [address] [place], [place] [address] (Wo rk) documented as of this encounter Procedures Procedure Name Priority Date/Time Associated Comments Diagnosis CBC WITH PLATELETS AND STAT 09/23/2021 10:07 R esults for this DIFFERENTIAL AM CDT procedure are i n the results section. CBC WITH PLATELETS & STAT 09/23/2021 10:07 Res ults for this DIFFERENTIAL AM CDT procedure are i n the results section. COMPREHENSIVE STAT 09/23/2021 10:07 Results fo r this METABOLIC PANEL AM CDT procedure ar e in the results section. ETHYL ALCOHOL LEVEL STAT 09/23/2021 10:07 Resu lts for this AM CDT procedure are i n the results section. URINE DRUGS OF ABUSE [...] procedu re are in the results section. documented in this encounter Results (ABNORMAL) CBC with platelets and differential (09/23/2021 10:07 AM CDT) [facility] Method Time Signature WBC Count 8.2 [...] Organization Address City/State/[place] [address] Care Lab [address] Lab (1st floor, no room number) [...] Organization Address City/State/[place] [address] Care Lab [address] Lab (1st floor, no room number) (ABNORMAL) Comprehensive metabolic panel (09/23/2021 10:07 AM CDT) Patholo gist Method Time Signature Sodium 136 133 - [...] AM CDT Creatinine 1.07 0.66 - 09/23/2021 LABORATORY 1.25 mg/dL 10:41 AM CDT Calcium 9.5 8.5 - 10.1 09/23/2021 LABORATORY mg/dL 10:41 AM CDT Glucose 116 (H) 70 - 99 09/23/2021 LABORATORY mg/dL 10:41 AM CDT Alkaline 81 40 - 150 09/23/2021 LABORATORY Phosphatase U/L 10:41 AM CDT AST 11 0 - 45 U/L 09/23/2021 [facility] LABORATORY 10:41 AM CDT ALT 22 0 - 70 U/L 09/23/2021 LABORATORY 10:41 AM CDT Protein Total 7.4 6.8 - 8.8 09/23/2021 LABORATORY g/dL 10:41 AM CDT Albumin 4.1 3.4 - 5.0 09/23/2021 LABORATORY g/dL 10:41 AM CDT Bilirubin Total 1.1 0.2 - 1.3 09/23/2021 LABORATORY mg/dL 10:41 AM CDT GFR Estimate 89 >60 09/23/2021 LABORATORY mL/min/1.7 10:41 AM CDT 3m2 Comment: Effective February 19, 2021 eGF Rcr in adults is calculated using the 2020 CKD-EPI creatinine equation which includ es age and gender (Nitesh et al., NEJM, DOI: 10.1056/LFYLxc6760933) Specimen Anatomical Collection Method / Collection Time Recei joaquim Time (Source) Location / Volume Laterality Blood STRUCTURE OF LEFT Venipuncture / 09/23/2021 10:07 08/31 UPPER LIMB / Unknown AM CDT 10:11 AM CDT Unknown Omar Martin MD LAB - BLOOD ORD ERABLES Performing Organization Address City/State/[place] [address] Care Lab [address] Lab (1st floor, no room number) (ABNORMAL) Drug abuse screen 1 urine (ED) (09/21/2021 6:20 PM CDT) [facility] Method Time Signature Amphetamines Screen Screen 09/21/2021 LABORATORY Urine Positive Negative 6:54 PM CDT (A) Comment: Cutoff for a positive amphetamine is gre ater than 500 ng/mL. This is an unconfirmed screening result to be used for medical purposes only. Barbiturates Urine Screen Negative Screen Negative 6:54 [facility] LABORATORY PM CDT Comment: Cutoff for a negative barbitura te is 200 ng/mL or less. Benzodiazepines Urine Screen Negative Screen 09/21/2021 6 :54 [facility] LABORATORY Negative PM CDT Comment: Cutoff for [...] LAB - URINE ORDERABLES Performing Organization Address City/[facility]/[place] [address] Care Lab [address] Lab (1st floor, no room number) Asymptomatic COVID-19 Virus (Coronavirus) by PCR Nasopharyngeal (09/21/2021 12:49 PM CDT) [facility] Signature SARS CoV2 PCR Negative Negative 09/21/2021 LABORATORY 1:35 PM CDT Comment: NEGATIVE: SARS-CoV-2 (COVID-19) RNA not detected, presumed negative. Specimen Anatomical Location / Collection Method Collection Malcom e Received Time (Source) Laterality / Volume Swab NASOPHARYNGEAL Non-blood 09/21/2021 12:49 STRUCTURE / Unknown Collection / PM CDT 12:56 PM CDT Unknown Narrative LABORATORY - 09/21/2021 1:35 PM CDT Testing was performed using the Xpert Xpress SARS-CoV-2 Assay on the [employer]. A dditional information about this [...] COVID-19. This test was validated by the [facility]. This laboratory is certified under the Clinical Laboratory Improvement Amendments of 1988 (CLIA-88) as qualified to perform high complexity laboratory testing. Darien Vargas MD LAB - MICRO GENERAL ORDERABL ES Performing Organization Address City/State/ZIP Code Phon [place] [address] Care [facility] [address] Lab (1st floor, no room number) documented in this encounter Visit Diagnoses Diagnosis Suicidal ideation documented in this encounter Administered Medications Inactive Administered Medications - up to 3 most recent administrations Medication Order MAR Action Action Date Dose Rate Site hydrOXYzine (ATARAX) tablet 25 mg 25 mg, Oral, AT BEDTIME PRN, other, sleep, melatonin a ugmentation or failure., Starting on 09/21/21 at 1828, Offer if unable to sl eep 30 minutes after melatonin administration. melatonin tablet 5 mg Given 09/22/2021 9:41 PM CDT 5 mg 5 mg, Oral, AT BEDTIME PRN, sleep, Starting on 09/21/21 at 2155 Given 09/21/2021 9:59 PM CDT 5 mg documented in this encounter Active and Recently Administered Medications Times are shown in CDT. Scheduled Medication Order 09/21/2021 09/22/2021 09/23/2021 LORazepam (ATIVAN) tablet 1 mg 0 (Canceled Entry - Provider: Orders Generic Provider - Comment: Automatically canceled at discontinue of medication order) 1 mg, Oral, ONCE, On 09/21/21 at 2120, For 1 dose PRN Medication Order 09/21/2021 09/22/2021 09/23/2021 hydrOXYzine (ATARAX) tablet 25 mg 25 mg, Oral, AT BEDTIME PRN, other, slee p, melatonin augmentation or failure., Starting on 09/21/21 at 1828, Offer if unable to sleep 30 minutes after melatonin administration. melatonin tablet 5 mg 2158 (Given - Provider: Maame moore RN) 2140 (Given - Provider: Justin Boyer RN) 5 mg, Oral, AT BEDTIME PRN, sleep, Starting on 09/21/21 at 21 55 documented in this encounter Care Teams Automotive Parts Specialist Relationship Specialty Start Date End Date [facility] Medical PCP - General 09/21/21 [address] [address] [place], [place] [phone] [facility] 09/21/21 [address] [place] [address] [place] [id number] documented as of this encounter
--- OUTSIDE RECORDS SUMMARY | 2021-12-07 20:40 | XMS_ITS | Encounter Summary ---
:1980 Author Organization [place] Address [facility] [place] [address] Care Team Providers Name Role Phone None Primary Care Provider Unavailable Encounter Details Date Type Department Care Team Description 04/25/1997 Imported Provider Omar Tillman [facility] MD Eddie [address] [place] [address] [address] [facility] [phone] [place] [address] (James wan) Social History Tobacco Use Types Packs/Day Years Used Date Never Assessed Sex Assigned at Date Recorded Not on file documented as of this encounter Progress Notes Omar Yu MD - 04/25/1997 12:00 AM SURGICAL LEAD EXAM: Examination shows no flank tenderness. The abdomen is negative, no tenderness, diffusely uncom fortable, but no locus of guarding, rigidity or other signs of tenderness. The bowel sounds are satisfactory. DIAGNOSIS: Diarrhea, suspect viral transient diarrhea. PLAN: Will start collecting stools for O&P and a culture. He will bring these in Thursday and at that time we will decide if a trial of medication is in order or if he is getting better spontaneously this may require no treatment. Omar Yu M.D./pdn ICAL LEAD documented in this encounter Plan of Treatment Upcoming Encounters Date Type Specialty Care Team Description 12/10/2021 Appointment Behavioral Health Sarai Weaver MD [address] [place], [place] [phone] (Wo rk) 12/11/2021 [place] [address] [place] [phone] (Wo rk) 12/11/2021 Appointment Sarai Galindo MD [address] [place] [address] [phone] (Wo rk) 12/13/2021 [place] [address] [place] [address] [phone] (Wo rk) 12/17/2021 [place] [address] [place] [address] [phone] (Wo rk) 12/18/2021 Appointment Sarai Galindo MD [address] [place] [address] [phone] (Wo rk) documented as of this encounter Visit Diagnoses Not on filedocumented in this encounter Care Teams Sampler First Relationship Specialty Start Date End Date None PCP - General 12/28/99 01/15/13 documented as of this encounter
--- OUTSIDE RECORDS SUMMARY | 2021-12-07 20:40 | XMS_ITS | Encounter Summary ---
:1980 Author Organization [place] Address [address] [place] [address] Care Team Providers Name Role Phone [facility] Primary Care Provider [phone] Sada Cagle Unavailable [phone] Reason for Visit Reason Onset Date Comments MH/CD Inpatient 09/22/2021 Encounter Details Date Type Department Care Team Description 09/22/2021 [facility]phone [facility] Behavior[facility]/ CD Inpatient Behavioral Health In alex Worthington MD [address] [place] [address] Social History Tobacco Use Types Packs/Day [...] encounter Miscellaneous Notes Telephone Encounter - Gen Trevino - 09/22/2021 9:24 PM CDT R: 8pm- Bed search update: [facility] is at capacity. [facility] is at capacity. [facility] is at capacity. [facility] is at capacity. [facility] is at capacity. [facility] is at capacity. Pt remains on waitlist pending available bed. documented in this encounter Plan of Treatment Upcoming Encounters Date Type Specialty Care Team Description 12/10/2021 Appointment Behavioral Health Sarai Weaver MD [address] [place] [address] (Wo rk) 12/11/2021 Appointment Sarai Galindo MD [address] [place], [place] [phone] (Wo rk) 12/11/2021 Appointment Sarai Galindo MD [address] [place], [place] [phone] (Wo rk) 12/13/2021 [place] [address] [place] [address] [phone] (Wo rk) 12/17/2021 Appointment Sarai Galindo MD [address] [place] [address] [phone] (Wo rk) 12/18/2021 Appointment Sarai Galindo MD [address], [place] [address] (Wo rk) documented as of this encounter Visit Diagnoses Not on filedocumented in this encounter Care Teams Manager Dish Relationship Specialty Start Date End Date [facility] Medical PCP - General 09/21/21 [address] [place] [address] [facility] 09/21/21 [address] [place] [place] [address] documented as of this encounter
--- OUTSIDE RECORDS SUMMARY | 2021-12-07 20:40 | XMS_ITS | Encounter Summary ---
:1980 Author Organization [place] Address [address] [facility] [place] [address] Care Team Providers Name Role Phone [facility] Primary Care Provider [phone] Sada Cagle Unavailable [phone] Reason for Visit Auth/Cert Specialty Diagnoses / Procedures Referred By Contact Refer red To Contact Behavioral Health Ur Adult [facility] orth Blding [address], [address] [place] [address] Phone: Fax: Referral ID Status Reason Start Date Expiration Date Visits Requ ested Visits Authorized [id number] 1 1 Encounter Details Date Type Department Care Team Description 10/02/2021 Hospital Encounter [facility] Demarco Weaver severe Mental Health & MD Omar episode of major Addiction Services [address] depressive disorder [facility] S without psychotic [facility] [employer] without [address] [place] [address] prior episode (H) [address] (Primary Dx) [place], [place] (Work) [address] Social History Tobacco Use [...] UT) tablet documented as of this encounter H&P Notes Omar Weaver MD - 10/02/2021 2:30 PM CDT [facility] Mental Health Outpatient Programs Provider Intake Note Program: [facility] Program Track: 1 Patient: Augustus Ramirez Jr. : 1980 Acct. No.: [id number] Date of Service: 10/02/21 Session Start Time: 1425 Session End Time: 1457 Diagnostic Assessment Date: 09/30/2021 Outpatient Providers: Current Outpatient Psychiatric Provider: none Current Outpatient Individual Psychotherapist: none [facility] Identifying Data: Augustus Ramirez Jr., a 41 year oldkse-ueul-eok with history of depression, ADHD, presents for initial visit to provide oversight of programmatic care. Patient attended the phone/video session alone, uses he/him pronouns, and prefers to be called: Francisco Presenting Concern: Something changed and I don't think I can do it by myself anymore Per diagnostic assessment: Mental health History of Present Illness: Chart reviewed, history as documented reviewed with Francisco. Patient endorses: ??? Mom moving in with him o Has stage IV cancer o Declining faster than expected - Plan had been for her to move in with him and his family next month - She is moving in now due to inability to care for self ??? Nephew completed suicide ??? Daughter, 13, hasn't spoken to me for 3 months ??? I've always self-isolated -- it's all I know, really o Typical response to stressors is to withdraw ??? Feels his withdrawal contributed to his 's decision to get in contact with an ex ??? Unclear, when asked, if depression started before more recent stressors or not o Pandemic changes also led to an increase in anxiety and decline in mood over the past 2 years ??? I'm not a big medication maryann o Prefers not to start medications today ??? Usually cope with exercise o Long walks with dog - Excessive, up to 8 miles during the night o Hoping to build other coping skills ??? I felt like today was really good, is optimistic the program will be helpful Goals for Treatment (in addition to those goals listed in the BEH Treatment Plan Encounter): ??? I would like to be able to go to work and not think about anything else but work ??? Just to be able to cope Psychiatric Review of Symptoms: Review of systems recorded in diagnostic assessment reviewed with patient. Today notes: ??? Anxiety getting worse over time o Bad in childhood, improved over time, worse again recently Safety Assessment: ??? Suicidal ideation: denies current or recent suicidal ideation or behavior ??? Thoughts of non-suicidal self-injury: denied ??? Recent self-injurious behavior: denied ??? Homicidal ideation: denied ??? Other safety concerns: denied Substance use: ??? Alcohol: it does help calm my brain down o same with marijuana ??? Feels like they are playing the role that he wants them to Medications: Current Outpatient Medications Medication Sig Dispense [...] above list was reviewed and updated in [facility] with patient today. Patient is taking medications as prescribed and denies adverse effects. Medical Review of Systems: Pertinent: None Recent Screenings: WHODAS 2.0 Total Score 09/30/2021 Total Score 32 Metrics: PHQ-9 scores: PHQ-9 SCORE 09/30/2021 PHQ-9 Total Score 14 YAMILE-7 scores: YAMILE-7 SCORE 10/02/2021 10/02/2021 10/02/2021 Total Score - - 10 (moderate anxiety) Total Score 10 10 10 CSSR-S: PHQ 09/30/2021 PHQ-9 Total Score 14 Q9: Thoughts of better off /self-harm past 2 weeks Several days Psychiatric History: Outpatient providers listed above. Past medication trials include: ??? None other than current Otherwise as noted above or in diagnostic assessment. Substance Use History: As noted above or in diagnostic assessment. Past Medical History: As noted above or in diagnostic assessment. Vital Signs: None since this is a phone/video visit. Labs: Most recent labs reviewed. Pertinent updates/findings: None. Family History: As noted above or in diagnostic assessment. Social History: As noted above or in diagnostic assessment. Legal History: As noted above or in diagnostic assessment. Significant Losses / Trauma / Abuse / Neglect Issues: As noted above or in diagnostic assessment. Mental Status Examination (limited due to video [...] present and no visual hallucinations present Mood: depressed Affect: mood congruent, intensity is normal, constricted [...] able to participate in programmatic care services. DSM5 Diagnosis/es: 1. 296.32 (F33.1) Major Depressive Disorder, Recurrent Episode, Moderate, With anxious distress 2. Attention-Deficit/Hyperactivity Disorder 314.01 (F90.2) Combined presentation 3. Provisional Diagnoses: 1. Alcohol Use Disorder 303.90 (F10.20) Moderate 2. 305.20 (F12.10) Cannabis Use Disorder Mild Assessment/Plan: Francisco presents today for initial provider visit as part of program intake, coordination, and supervision. Phenomenologically, unclear if depression was already present and was exacerbated by recent stressors, but certainly is worse as a result of them. In any case, patient is reluctant to add medications at this time. Discussed that psychotherapy is certainly an effective treatment for depression and that we can revisit medications in the future if needed. Patient presents following recent suicide attempt by asphyxiation. Partial hospital is the least restrictive level of care appropriate for treatment at this time. ??? Depression o Patient prefers not to start medications at this time. This is reasonable, we will revisit in the future if needed. o Continue partial hospital program ??? ADHD o Stable on current medication o Plan otherwise per above ??? Cannabis use o Unclear that it is interfering with recovery or wellbeing, unclear if meeting criteria for use disorder o Patient advised to abstain at least while in the program ??? Alcohol use o Patient has been successful in decreasing overall use on his own o We will continue to monitor o Advised to abstain at least while in the program ??? Risk Assessment o Today Francisco denies any current safety concerns including suicidal ideation, self-harm, and homicidal ideation o Francisco is future-oriented and engaged in treatment planning o I do not feel that Francisco meets criteria for a 72-hour involuntary hold and remains appropriate for an outpatient level of care. Continue therapy as planned: ??? Enrolled in Partial Hospital Program ??? Patient continues to meet criteria for recommended level of care. ??? Patient is expected to make a timely and significant improvement in the presenting acute symptoms as a result of participation in this program. ??? Patient would be at reasonable risk of requiring a higher level of care in the absence of current services. ??? Continue with individual therapist as appropriate Safety plan reviewed. ??? To the Emergency Department as needed or call after hours crisis line at [phone] or [phone]. [place] Crisis Text Line: Text [place] to [address]995 or Suicide LifeLine Chat: suicidepreventionlifeline.org/chat Follow-up: ??? [...] with questions or concerns (see below) ??? SBA Materialshart may be used to communicate with your provider, but this is not intended to be used for emergencies. [facility] Adult Mental Health Program lines: [facility]: [phone] Dual Disorder: [phone] Adult Day Treatment: [phone] 55+/Intensive Outpatient: [phone] Community Resources: National Suicide Prevention Lifeline: 988 from any phone, or 664-777-5331 (TTY: 888.783.2806). Call anytime for help. (www.suicidepreventionlifeline.org) National [place] on Mental Illness (www.nasreen.org): 255.875.8125 or 557-123-0255. Mental Health Association (www.mentalhealth.org): 380.337.3299 or 032-187-6646. [place] Crisis Text Line: Text [place] to [address] Suicide LifeLine Chat: suicidepreBohemian Guitarsline.org/chat Treatment Objective(s) Addressed in This Session: One purpose of today's call is for this technical document writer to provide oversight of patient's care while receiving program services. Specific treatment goals addressed included personal safety, symptoms stabilization and management, wellness and mental health, and community resources/discharge planning. Patient agrees with the current plan of care. Signed: Omar Weaver MD October 02, 2021 Visit Details: Type of service: Video Visit Start/End Time: see above Originating Location (pt. Location): Home in [place] Distant Location (provider location): Provider Remote Setting- Home Office Platform used for Video Visit: Zoom Physician has received verbal consent for a Video Visit from the patient? Yes 40 minutes spent on the date of the encounter doing chart review, patient visit, documentation and discussion with other provider(s) This document completed in part using [employer] dictation software. Please excuse any inadvertent word or phrase substitutions. documented in this encounter Plan of Treatment Upcoming Encounters Date Type Specialty Care Team Description 12/10/2021 Appointment Sarai Galindo MD [address] [address] [facility] [place] [place] [address] (Wo rk) 12/11/2021 Appointment Sarai Galindo MD [address] [place] [address] (Wo rk) 12/11/2021 Appointment Sarai Galindo MD [address] [place], [place] [address] [place] [address] (Wo rk) 12/13/2021 Appointment Sarai Galindo MD [address] [place] [address] [phone] (Wo rk) 12/17/2021 [place] [address] [place] [address] [phone] (Wo rk) 12/18/2021 [place] [address] [place] [address] [phone] (Wo rk) documented as of this encounter Visit Diagnoses Diagnosis Current severe episode of major depressi ve disorder without psychotic features without prior episode (H) - Primary documented in this encounter Additional Health Concerns Assessment Noted Time PHQ-9 Depression Total Score: 14 09/30/2021 8:52 AM CD T documented as of this encounter Care Teams Research Laboratory Manager Relationship Specialty Start Date End Date [facility] Medical PCP - General 09/21/21 [address] [place] [address] [facility] 09/21/21 [address] [place] [address] [place] [phone] documented as of this encounter
--- OUTSIDE RECORDS SUMMARY | 2021-12-07 20:40 | XMS_ITS | Encounter Summary ---
:1980 Author Organization [place] Address [facility] [place] [address] Care Team Providers Name Role Phone [facility] Primary Care Provider [phone] Sada Cagle Unavailable [phone] Encounter Details Date Type Department Care Team Description 09/21/2021 Travel Social History Tobacco Use Types Packs/Day Years [...] Description 12/10/2021 Appointment Health Sarai Weaver MD [address] [place], [place] [address] [place], [place] [phone] (James wan) 12/11/2021 Appointment Sarai Galindo MD [address] [place], [place] [address] [place], [place] [phone] (James rk) 12/11/2021 Appointment Sarai Galindo MD [address] [place] [address] [phone] (James rk) 12/13/2021 Appointment Sarai Galindo MD [address] [place], [place] [address] [place], [place] [phone] (Wo rk) 12/17/2021 Appointment Behavioral Health Sarai Weaver MD [address] [place], [place] [phone] (James rk) 12/18/2021 Appointment Behavioral Health Sarai Weaver MD [address] [place], [place] [phone] (James rk) documented as of this encounter Visit Diagnoses Not on filedocumented in this encounter Care Teams Lodging House Keeper Relationship Specialty Start Date End Date [facility] PCP - General 09/21/21 [address] [place], [place] [phone] [facility] 09/21/21 [address] [place] [address] [place] [address] documented as of this encounter
--- OUTSIDE RECORDS SUMMARY | 2021-12-07 20:40 | XMS_ITS | Encounter Summary ---
:1980 Author Organization [place] Address [address] [place] [address] Care Team Providers Name Role Phone [facility] [phone] Sada Cagle Unavailable [phone] Reason for Visit Reason Onset Date Comments MH/CD Inpatient 09/22/2021 Encounter Details Date Type Department Care Team Description 09/22/2021 Telephone [facility] Generic, Behavioral MH/ CD Inpatient Behavioral Health In alex Worthington MD [address] [place] [phone] Social History Tobacco Use Types Packs/Day Years Used Date Never Assessed Sex Assigned at Date Recorded Not on file COVID-19 Exposure Response Date Recorded In the last 10 days, have you been in contact with No / Unsu re 09/21/2021 12:19 PM CDT someone who was confirmed or suspected to have Coronavirus/COVID-19? documented as of this encounter Miscellaneous Notes Telephone Encounter - Tristan Esparza - 09/22/2021 3:07 PM CDT [facility] Access Inpatient Bed Call Log 09/22/2021 done at 3pm Adults: 72HH ??? [facility] is posting 0 beds. ??? [facility] is posting 0 beds. ??? [facility] is posting 0 beds. ??? [facility] is posting 0 beds. ??? [facility] is posting 0 beds. ??? [facility] is posting 0 beds. ??? [facility] is posting 0 beds. ??? [facility] is posting 0 beds. ??? [facility] is posting 0 beds. Mixed unit 12+. Low acuity only. ??? [facility] is positing 0 beds. No aggression. ??? [facility] is posting 0 beds. ??? [facility] is posting 0 beds. Low acuity only. ??? [facility] is posting 0 beds. ??? [facility] is posting 0 beds. Low acuity. ??? [facility] is posting 0 beds. 72 hr hold required. ??? [facility] is posting 0 beds. ??? [facility] is posting 0 beds. Vol only, No Hx of aggression, violence or assault. No sexual offenders. No 72 hr holds. ??? [facility] is posting 4 beds. -Low Acuity (Must have the cognitive ability todo programming. No aggressive or violent behavior or recent HX in the last 2 yrs. must be primary.) ??? [facility] is posting 0 beds. Low acuity only. Violence and aggression capped. ??? [facility] 0 [facility]. Low acuity, Neg Covid. ??? [facility] is posting 0 beds. Covid neg. Vol only. Combined adolescent and adult unit. No aggressive or violent behavior. No registered sex offenders. ??? [facility] is posting 4 beds. Call for details.- Low Acuity ??? [facility] is posting 2 beds. -Low Acuity 3pm No appropriate bed available at this time. Telephone Encounter - Tristan Esparza - 09/22/2021 7:18 AM CDT [facility] Access Inpatient Bed Call Log 09/22/2021 done at 7am ?? Adults: 72HH ?? [facility] is posting 0 beds. ?? [facility] is posting 0 beds. ?? [facility] is posting 0 beds. ?? [facility] is posting 0 beds. ?? [facility] is posting 0 beds. ?? [facility] is posting 0 beds. ?? [facility] is posting 0 beds. ?? [facility] is posting 0 beds. ? [facility] is posting 1 beds. Mixed unit 12+. Low acuity only. ?? [facility] is positing 0 beds. No aggression. ?? [facility] is posting 0 beds. ?? [facility] is posting 0 beds. Low acuity only. ?? [facility] is posting 0 beds. ?? [facility] is posting 0 beds. Low acuity. ?? [facility] is posting 0 beds. 72 hr hold required. ?? [facility] is posting 0 beds. ? [facility] is posting 0 beds. Vol only, No Hx of aggression, violence or assault. No sexual offenders. No 72 hr holds. ?? [facility] is posting 4 beds. (Must have the cognitive ability to do programming. No aggressive or violent behavior or recent HX in the last 2 yrs. MH must be primary.) ?? [facility] is posting 0 beds. Low acuity only. Violence and aggression capped. ?? [facility] is [facility] 0 beds. Low acuity, Neg Covid. ?? [facility] is posting 0 beds. Covid neg. Vol only. Combined adolescent and adult unit. No aggressive or violent behavior. No registered sex offenders. ?? [facility] is posting 6 beds. Call for details. ?? [facility] is posting 2 beds. ?? 7:10am No appropriate bed available. Telephone Encounter - Jaimee Oakley - 09/22/2021 12:29 AM CDT 0030 Bed Search Update: [facility]-No beds available [facility] beds available [facility] beds available [facility] beds available [facility] beds available [facility] beds available [facility]-No beds available Remains on wait list. documented in this encounter Plan of Treatment Upcoming Encounters Date Type Specialty Care Team Description 12/10/2021 Appointment Behavioral Health Sarai Weaver MD [address] [place], [place] [phone] (Wo rk) 12/11/2021 Appointment Sarai Galindo MD [address] [place] [address] (Wo rk) 12/11/2021 Appointment Sarai Galindo MD [address] [place], [place] [address] (Wo rk) 12/13/2021 Appointment Sarai Galindo MD [address], [place] [address] (Wo rk) 12/17/2021 [place] [address] [place] [phone] (Wo rk) 12/18/2021 Appointment Sarai Galindo MD [address] [place] [phone] (Wo rk) documented as of this encounter Visit Diagnoses Not on filedocumented in this encounter Care Teams Induction Brazer Relationship Specialty Start Date End Date [facility] Medical PCP - General 09/21/21 [id number] [place] [address] [facility] 09/21/[id number] [place] [address] documented as of this encounter
--- OUTSIDE RECORDS SUMMARY | 2021-12-07 20:40 | XMS_ITS | Encounter Summary ---
:1980 Author Organization [place] Address [address] [place] [address] Care Team Providers Name Role Phone None Primary Care Provider Unavailable Encounter Details Date Type Department Care Team Description 07/18/1997 Imported Refill [facility] Iron Mckay, [facility] [address] [place] [address] [place] [address] [place], [place] [phone] (James rk) Social History Tobacco Use Types Packs/Day Years Used Date Never Assessed Sex Assigned at Date Recorded Not on file documented as of this encounter Progress Notes Iron Mckay MD - 07/18/1997 12:00 AM CDT MEDICATION NAME: Ritalin DOSAGE: 10 mg FREQUENCY: BID NUMBER: 100 NUMBER OF REFILLS: PHARMACY NAME: [facility] COMMENTS: No problems with this with sleep, appetite or ticks. Iron Mckay M.D./prudencew documented in this encounter Plan of Treatment Upcoming Encounters Date Type Specialty Care Team Description 12/10/2021 Appointment Behavioral Health Sarai Weaver MD [address] [place] [address] (Wo rk) 12/11/2021 Appointment Sarai Galindo MD [address] [place], [place] [phone] (James rk) 12/11/2021 Appointment Sarai Galindo MD [address] [place] [address] [phone] (Wo rk) 12/13/2021 Appointment Sarai Galindo MD [address] [place] [phone] (Wo rk) 12/17/2021 [place] [address] [place] [address] [phone] (Wo rk) 12/18/2021 Appointment Sarai Galindo MD [address] [place] [address] [phone] (Wo rk) documented as of this encounter Visit Diagnoses Not on filedocumented in this encounter Care Teams Ladle Repairer Relationship Specialty Start Date End Date None PCP - General 12/28/99 01/15/13 documented as of this encounter
--- OUTSIDE RECORDS SUMMARY | 2021-12-07 20:40 | XMS_ITS | Encounter Summary ---
:1980 Author Organization [place] Address [address] [place] [address] Care Team Providers Name Role Phone None Primary Care Provider Unavailable Encounter Details Date Type Department Care Team Description 03/13/1997 Imported Provider [facility] Iron Mckay, Note [facility] [address] [place] [address] [place] [phone] [place] [phone] (Wo rk) Social History Tobacco Use Types Packs/Day Years Used Date Never Assessed Sex Assigned at Date Recorded Not on file documented as of this encounter Progress Notes Iron Mckay MD - 03/13/1997 12:00 AM 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 He has recently completed an MMPI and we have reviewed the fact that those results are back. He is counseling with Henna Richard and will continue that. I asked him how school is going, and he says it is better than it was because he started off medications and now he is back on and thinks he is doing better. He is on 15 mg Ritalin b.i.d. I asked him if he thought the dose was enough. He says he thinks so, so we just refilled 15 mg b.i.d. #100 for03/13 and 04/13 and then we should have some idea on how he is doing. Apparently he is failing social and just barely passing his other classes. He says he does not have any headaches or upset stomach, etc., with the meds. However, we should get some other outside feedback to let us know how he is doing, and he may need to proceed on to a higher dose of 20 mg of Ritalin. Iron Mckay M.D./cap TECHNICIAN/PAINTER documented in this encounter Plan of Treatment Upcoming Encounters Date Type Specialty Care Team Description 12/10/2021 [place] [address] [place] [phone] (Wo rk) 12/11/2021 [place] [address] [place] [phone] (Wo rk) 12/11/2021 [place] [address] [place] [phone] (Wo rk) 12/13/2021 Appointment Sarai Galindo MD [address], [place] [address] (Wo rk) 12/17/2021 Appointment Sarai Galindo MD [address] [place] [address] [phone] (Wo rk) 12/18/2021 [place] [address] [place] [phone] (Wo rk) documented as of this encounter Visit Diagnoses Not on filedocumented in this encounter Care Teams Photofinishing Laboratory Worker Relationship Specialty Start Date End Date None PCP - General 12/28/99 01/15/13 documented as of this encounter
--- OUTSIDE RECORDS SUMMARY | 2021-12-07 20:40 | XMS_ITS | Encounter Summary ---
:1980 Author Organization [place] Address [address] [place] [address] Care Team Providers Name Role Phone None Primary Care Provider Unavailable Encounter Details Date Type Department Care Team Description 10/08/1998 Imported Provider Omar Tillman Note [facility] MD Eddie [address] [facility] [address] [place] [address] [address] [facility] [phone] [place] [address] (Wo rk) Social History Tobacco Use Types Packs/Day Years Used Date Never Assessed Sex Assigned at Date Recorded Not on file documented as of this encounter Progress Notes Omar Yu - 10/08/1998 12:00 AM CDT SUBJECTIVE: Five stitches were removed from his injured finger. Healing is satisfactory, no infection. PLAN: He is going to go back to light duty work so that he will not have to pinch or press hard with his finger. Restrictions for two more weeks. RTC PRN. Omar Yu M.D./cap documented in this encounter Plan of Treatment Upcoming Encounters Date Type Specialty Care Team Description 12/10/2021 Appointment Behavioral Health Sarai Weaver MD [address] [place] [address] (Wo rk) 12/11/2021 Appointment Sarai Galindo MD [address] [place], [place] [phone] (Wo rk) 12/11/2021 Appointment Sarai Galindo MD [address], [place] [phone] (Wo rk) 12/13/2021 Appointment Sarai Galindo MD [address] [place], [place] [phone] (Wo rk) 12/17/2021 Appointment Sarai Galindo MD [address] [place], [place] [phone] (Wo rk) 12/18/2021 Appointment Sarai Galindo MD [address] [place], [place] [phone] (Wo rk) documented as of this encounter Visit Diagnoses Not on filedocumented in this encounter Care Teams Pick Up Driver Relationship Specialty Start Date End Date None PCP - General 12/28/99 01/15/13 documented as of this encounter
--- OUTSIDE RECORDS SUMMARY | 2021-12-07 20:40 | XMS_ITS | Encounter Summary ---
:1980 Author Organization [place] Address [address] [place] [address] Care Team Providers Name Role Phone None Primary Care Provider Unavailable Encounter Details Date Type Department Care Team Description 05/11/1998 Imported Provider [facility] Iron Mckay, Note [facility] [address] [place] [address] [place] [phone] [place] [address] (Wo rk) Social History Tobacco Use Types Packs/Day Years Used Date Never Assessed Sex Assigned at Date Recorded Not on file documented as of this encounter Progress Notes Iron Mckay - 05/11/1998 12:00 AM BRIDGES AND BUILDINGS SUPERVISOR SUBJECTIVE: Gentleman is seen in urgent care after a fall at school where he hit the back of his head in the locker room. No loss of consciousness. He's really had no headache, but he has a bump over the occipital parietal region on the left side. OBJECTIVE: Eyes: PERRL, EOMs intact, fundus benign, discs sharp. TMs are clear. No hemotympanum. Hedoesn't really have any significant bony tenderness. There is a little soft tissue swelling, about a2-3 cm. area as noted above. Oropharynx is unremarkable. Neck is supple. He denies any significant pain. Lungs clear. Heart: Sinus rhythm. Abdomen is soft. Hand grasp 5/5. Deep tendon reflexes 2+/4 symmetrically. Romberg is stable. ASSESSMENT: Contusion, skull. PLAN: Patient has already been given a head trauma guideline sheet from the school. I think if he just follows along with that he'll do fine. He can use some ice packs to the area p.r.n. if he wishes.Any sign of neurologic problems or increasing symptoms, then he should be reevaluated. Tylenol. Would avoid aspirin at this time. Iron Mckay M.D./jose manuel GES AND BUILDINGS SUPERVISOR documented in this encounter Plan of Treatment Upcoming Encounters Date Type Specialty Care Team Description 12/10/2021 Appointment Sarai Galindo MD [address] [place] [address] [phone] (Wo rk) 12/11/2021 [place] [address] [place] [phone] (Wo rk) 12/11/2021 [place] [address] [place] [phone] (Wo rk) 12/13/2021 Appointment Sarai Galindo MD [address] [place] [phone] (Wo rk) 12/17/2021 [place] [address] [place] [phone] (Wo rk) 12/18/2021 [place] [address] [place] [phone] (Wo rk) documented as of this encounter Visit Diagnoses Not on filedocumented in this encounter Care Teams Ssn/Ssbn Weapons Equipment Operator Relationship Specialty Start Date End Date None PCP - General 12/28/99 01/15/13 documented as of this encounter
--- OUTSIDE RECORDS SUMMARY | 2021-12-07 20:40 | XMS_ITS | Encounter Summary ---
:1980 Author Organization [place] Address [address] [place] [address] Care Team Providers Name Role Phone None Primary Care Provider Unavailable Encounter Details Date Type Department Care Team Description 02/26/2000 Abstract [facility] Iron Mariano MD [place] [id number] [facility] [address] [place] [id number] [place] [address] [phone] (Wo rk) Social History Tobacco Use Types Packs/Day Years Used Date Never Assessed Sex Assigned at Date Recorded Not on file documented as of this encounter Plan of Treatment Upcoming Encounters Date Type Specialty Care Team Description 12/10/2021 Appointment Sarai Galindo MD [address] [facility] [address] [place], [place] [phone] (Wo rk) 12/11/2021 Appointment Sarai Galindo MD [address] [place], [place] [phone] (Wo rk) 12/11/2021 Appointment Sarai Galindo MD [address], [place] [phone] (Wo rk) 12/13/2021 Appointment Sarai Galindo MD [address] [place], [place] [phone] (Wo rk) 12/17/2021 Appointment Behavioral Health Sarai Weaver MD [address] [place], [place] [phone] (Wo rk) 12/18/2021 Appointment Sarai Galindo MD [address] [place], [place] [phone] (Wo rk) documented as of this encounter Visit Diagnoses Not on filedocumented in this encounter Care Teams Commercial Photographer Relationship Specialty Start Date End Date None PCP - General 12/28/99 01/15/13 documented as of this encounter
--- OUTSIDE RECORDS SUMMARY | 2021-12-07 20:40 | XMS_ITS | Encounter Summary ---
:1980 Author Organization [place] Address [address] [place] [address] Care Team Providers Name Role Phone [facility] Primary Care Provider [phone] Sada Cagle Unavailable [phone] Reason for Visit Auth/Cert Specialty Diagnoses / Procedures Referred By Contact Refer red To Contact Behavioral Health Ur Adult [facility] orth [address]ing [address], [address] [place] [address] Phone: Fax: Referral ID Status Reason Start Date Expiration Date Visits Requ ested Visits Authorized [id number] 1 1 Encounter Details Date Type Department Care Team Description 10/02/2021 Hospital Encounter [facility] [address] [place], [place] [address], [id number] (Work) [place] [address] Social History Tobacco Use Types Packs/Day [...] Group Note - Roby Tejada LMFT - 10/02/2021 4:52 PM CDT Psychotherapy Group Note PATIENT'S NAME: Augustus Ramirez Jr. : 1980 ACCT. NUMBER: [id number] DATE OF SERVICE: 10/02/21 START TIME: 2:00 PM END TIME: 2:20 PM CATERING SERVER: Roby Tejada LMFT TOPIC: EBP Group: Coping Skills [facility] Adult Partial Hospitalization Program TRACK: [facility] NUMBER OF PARTICIPANTS: 7 Summary [...] other skills are more relevant or helpful. 2 patients took process time, one to discuss assertive communication about mental health and one to discuss thoughts and feelings about graduating [facility] today and that patient has some time for graduation well wishes at the end of the group. Patient Session Goals / Objectives: ?? Understand [...] received / provided feedback with other participants. Engaged in feedback during process time but was meeting with [facility] psychiatrist during the presentation of the group topic. Treatment Plan: Patient has an initial individualized treatment plan that was created as part of their diagnostic assessment / admission process. A master individualized treatment plan is in the process of being developed with the patient and multi- disciplinary care team. DENNIS Peterson Group Note - Estefania Ellis OTR/L - 10/02/2021 2:04 PM CDT Psychoeducation Group Note PATIENT'S NAME: Augustus Ramirez Jr. : 1980 ACCT. NUMBER: [id number] DATE OF SERVICE: 10/02/21 START TIME: 11:00 AM END TIME: 11:50 AM CATERING SERVER: Estefania Ellis OTR/L TOPIC: [facility] OT Group: Lifestyle Balance and Structure [facility] Adult Partial Hospitalization Program TRACK: 1 NUMBER OF PARTICIPANTS: 7 Service Modality: Video Visit Telemedicine Visit: The patient's condition can be safely assessed and treated via synchronous audioand visual telemedicine encounter. Reason for Telemedicine Visit: Services only offered telehealth Originating Site (Patient Location): Patient's home Distant Site (Provider Location): [facility] Outpatient Setting: Partial Hospitalization ProgramR [facility] Cowley [...] with other participants. Patient presentation: constricted affect observed; active in group discussion sharing ideas with peers; mood seemed anxious, Verbalized understanding of content and Patient would benefit from additional opportunities to practice the content to be able to generalize it to their everyday life with increased intentionality, consistency, and efficacy in support of their psychiatric recovery Francisco began the Partial Hospitalization Program today. He was welcomed and oriented to OT groups. Encouraged Francisco to ask questions as needed. Treatment Plan: Patient has an initial individualized treatment plan that was created as part of their diagnostic assessment / admission process. A master individualized treatment plan is in the process of being developed with the patient and multi- disciplinary care team. Continue to assess. Will complete OT assessment with Francisco in the next couple of treatment days. OLY Melgar/Yanna Group Note - Adelaide Morris OTR/L - 10/02/2021 2:04 PM CDT OT Clinic Group Note PATIENT'S NAME: Augustus Ramirez Jr. : 1980 ACCT. NUMBER: [id number] DATE OF SERVICE: 10/02/21 START TIME: 1:00 PM END TIME: 1:50 PM CATERING SERVER: Adelaide Morris OTR/Yanna TOPIC: [facility] OT Group: Occupational Therapy Clinic [facility] Adult Partial Hospitalization Program TRACK: [facility] NUMBER OF PARTICIPANTS: 7 Service [...] through discussion and participation in activities. Pt was given education on behaviors that contribute to well-being. He identifieda task but became anxious when gathering supplies and talking with someone. He was encouraged to return to group to discuss barriers with staff in the future. Treatment Plan: Patient has an initial individualized treatment plan that was created as part of their diagnostic assessment / admission process. A master individualized treatment plan is in the process of being developed with the patient and multi- disciplinary care team. MADI Liriano Group Note - Belkis Leonard RN - 10/02/2021 11:39 AM CDT Psychoeducation Group Note PATIENT'S NAME: Augustus Ramirez Jr. : 1980 ACCT. NUMBER: [id number] DATE OF SERVICE: 10/02/21 START TIME: 10:00 AM END TIME: 10:50 AM CATERING SERVER: Belkis Leonard RN TOPIC: Wellness Group: Brain Health [facility] Adult Partial Hospitalization Program TRACK: [facility] 1 NUMBER OF PARTICIPANTS: 7 Summary of Group / Topics Discussed: Brain Health: Pathophysiology of stress and anxiety: Patients were educated on the difference between stress, chronic stress, and anxiety. The anatomy and pathophysiology of the body/brain were reviewed to illustrate the immediate effects of stress/anxiety in the body and the skilled nursing effects and increased risks for chronic disease that come from unmanaged stress/anxiety. Self-coping strategies to manage symptoms of stress were reviewed and pharmacologic, psychotherapeutic, and complementary treatment options were discussed. Patient Session Goals / Objectives: ? Described the differences between stress and anxiety and how the body responds to it ? Listed the skilled nursing effects and increased risks for chronic disease [...] current master individualized treatment plan. See [facility] treatment plan for more information. Belkis Leonard RN Group Note - Kathleen Grajeda LMFT - 10/02/2021 9:28 AM CDT Process Group Note PATIENT'S NAME: Augustus Ramirez Jr. : 1980 ACCT. 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 Francisco reported feeling ???good, a little anxious, otherwise this week has been a good week so far.?? Francisco reported this is his first group experience. Patient identified the following goal(s) to work towards today: ???just to make it through this and hopefully get something out of it.?? Patient plansto use the following skills to achieve their goal: ???I???m not sure to be honest,?? discussed ???support from my family?? as helpful in getting through the day. Patient anticipates the following barriers that may interfere with achieving their goal: ???nothing that I know of.?? Denies safety concerns, ???none today,?? endorses chemical use (???I had a couple drinks with a friend over yesterday?? ), and reports taking their medications as prescribed. Patient reports feeling proud of/grateful for: ???friends and family.?? Patient asked for the following supports from the group today: ???nothingspecific.?? Francisco received words of welcome from the group. Therapeutic Interventions/Treatment Strategies: Psychotherapist offered support, feedback and validation, set limits, provided redirection and reinforced use of skills. Treatment modalities used include Motivational Interviewing, Cognitive Behavioral Therapy and Dialectical Behavioral Therapy. Interventions include Other: Explored with patient how life transitions may impact mental health and functioning and Discussed ways to increase hopefulness and Relationship Skills: Discussed strategies to promote healthier understanding of interpersonal relationships. Assessment: Patient response: Patient responded to session by accepting feedback, listening, being attentive and accepting support Possible barriers to participation / learning include: and no barriers identified Health Issues: None reported Substance Use Review: Substance Use: No active concerns identified. Mental Status/Behavioral Observations Appearance: Appropriate Eye Contact: Good Psychomotor Behavior: Normal Attitude: Cooperative Interested Friendly [...] in their treatment plan. DENNIS Garcia October 02, 2021 documented in this encounter Plan of Treatment Upcoming Encounters Date Type Specialty Care Team Description 12/10/2021 Appointment Sarai Galindo MD [address] [place] [address] [phone] (Wo rk) 12/11/20[place] [address] [place] [phone] (Wo rk) 12/11/2021 [place] [address] [place] [address] [phone] (Wo rk) 12/13/2021 [place] [address] [place] [phone] (Wo rk) 12/17/2021 [place] [address] [place] [phone] (Wo rk) 12/18/2021 Appointment Sarai Galindo MD [address] [place] [phone] (Wo rk) documented as of this encounter Visit Diagnoses Not on filedocumented in this encounter Additional Health Concerns Assessment Noted Time PHQ-9 Depression Total Score: 14 09/30/2021 8:52 AM CD T documented as of this encounter Care Teams Metal Grader Relationship Specialty Start Date End Date [facility] PCP - General 09/21/21 [address] [place] [address] [facility] 09/21/21 [address] [place] [place] [id number] documented as of this encounter
--- OUTSIDE RECORDS SUMMARY | 2021-12-07 20:40 | XMS_ITS | Encounter Summary ---
:1980 Author Organization [place] Address [address] [place] [address] Care Team Providers Name Role Phone [facility] Primary Care Provider [phone] Sada Cagle Unavailable [phone] Reason for Referral Mental Health Outpatient (Routine: Next available opening) - Pending Review Specialty Diagnoses / Procedures Referred By Contact Refer red To Contact Behavioral Health Diagnoses MDD (major depressive disorder) Omar Weaver MD [address] [place] [phone] Referral ID Status Reason Start Date Expiration Date Visits V isits Requested Authorized [id number] Pending 10/01/2021 10/01/2022 1 1 Review Encounter Details Date Type Department Care Team Description 09/30/2021 BEH Treatment Plan [facility] Omar Weaver MD [address] [place] [address] [phone] MDD (major Mental Health & AshleylSophie, FLAKE OR SHRED ROLL OPERATOR [address] [address] depressive Addiction Services disorder) (Primary [address]) [address] [place] [id number] Social History Tobacco Use Types Packs/Day Years [...] Team Description 12/10/2021 Appointment Sarai Galindo MD [address], [place] [phone] (Wo rk) 12/11/2021 Appointment Sarai Galindo MD [address] [place] [address] [phone] (Wo rk) 12/11/2021 Appointment Sarai Galindo MD [address], [place] [phone] (Wo rk) 12/13/2021 Appointment Sarai Galindo MD [address] [place], [place] [phone] (Wo rk) 12/17/2021 Appointment Sarai Galindo MD [address] [place], [place] [phone] (Wo rk) 12/18/2021 Appointment Sarai Galindo MD [address] [place], [place] [phone] (Wo rk) Scheduled Referrals Name Type Priority Associated Diagnoses Order [facility] Adult Mental Health Referral Routine: Next MDD (major Expecte d: Straight Tooth Gear Generator Operator Referral available opening depressive disord er) 10/01/2021 (Approximate), Expires: 10/01/2022 documented as of this encounter Visit Diagnoses Diagnosis MDD (major depressive disorder) - Primar y Major depressive disorder, single episod e, unspecified documented in this encounter Additional Health Concerns Assessment Noted Time PHQ-9 Depression Total Score: 14 09/30/2021 8:52 AM CD T documented as of this encounter Care Teams Rn Psych Relationship Specialty Start Date End Date [facility] Medical PCP - General 09/21/21 [address] [place], [place] [phone] [facility] 09/21/21 [address] [place] [id number] documented as of this encounter
--- OUTSIDE RECORDS SUMMARY | 2021-12-07 20:40 | XMS_ITS | Encounter Summary ---
:1980 Author Organization [facility] Address [address] [place] [address] Care Team Providers Name Role Phone Sada Cagle Primary Care Provider [phone] Reason for Visit Reason Comments Other Encounter Details Date Type Department Care Team Description 01/16/2013 Emergency [facility] Perico Phan MD Penile lesion (Primary [facility]) [address] [place], [place] [address] [facility] [address] [place] [address] [phone] (Wo rk) Social History Tobacco Use Types Packs/Day Years Used Date Current Every Day Smoker Alcohol Use Standard Drinks/Week Comments Yes 0 (1 standard drink = 0.6 oz pure alcoho l) Sex Assigned at Date Recorded Not on file documented as of this encounter Last Filed Vital Signs Vital Sign Reading Time Taken Comments Blood Pressure 129/90 01/16/2013 8:02 PM LEAD AUDITOR Pulse - - Temperature 36.9 ??C (98.5 ??F) 01/16/2013 8:02 PM LEAD AUDITOR Respiratory Rate 18 01/16/2013 8:02 PM LEAD AUDITOR Oxygen Saturation 99% 01/16/2013 8:02 PM LEAD AUDITOR Inhaled Oxygen Concentration - - Weight 81.6 kg (180 lb) 01/16/2013 8:02 PM LEAD AUDITOR Height - - Body Mass Index - - documented in this encounter Discharge Instructions Discharge InstructionsPerico Phan MD - 01/16/2013 8:49 PM CST Discharge Instructions Cellulitis Cellulitis is an infection of the skin that occurs when bacteria enter the skin. Symptoms are generally redness, swelling, warmth and pain. Your infection appeared to be appropriate to treat at home with antibiotics. However, sometimes your infection may be worse than it seemed at first, or may worsenwith time. If you have new or worse symptoms, you may need to be seen again in the emergency department or by your primary doctor Return to the Emergency Department if: The redness, pain, or swelling gets a lot worse. If the red area was marked, return if it is red beyond the marked area. You are unable to get your antibiotics, or are vomiting them up or you can???t take them. You are feeling more ill, weak or lightheaded. You start to run a new fever (temperature >101) Anything else about the infection worries or concerns you. Treatment: Start your antibiotics right away, and take them as prescribed. Be sure to finish the whole prescription, even if you are better. Apply a heating pad, warm packs, or warm water soaks to the infected area for 15 minutes at a time,at least 3 times a day. Do not use a heating pad on your feet or legs if you have diabetes. Do not sleep with a heating pad on, since this can cause byrnes or skin injury. Rest your injured area for at least 1-2 days. After that you may start using your extremity again as long as there is not too much pain. Raise the injured area above the level of your heart as much as possible in the first 1-2 days. Acetaminophen (Tylenol or generic) or ibuprofen (Motrin, Advil, or generic) help reduce pain and fever and may help you feel more comfortable. Be sure to read and follow the package directions, and ask your doctor if you have questions. Follow-up with your doctor: Re-check in clinic within 2-3 days Remember that you can always come back to the Emergency Department if you are not able to see your regular doctor in the amount of time listed above, if you get any new symptoms, or if there is anything that worries you. Genital Herpes Genital herpes is a common sexually transmitted disease (STD). It is caused by the Herpes Simplex virus. One out of five (20%) teens and adults carry the herpes virus. During an outbreak, it causes small blisters that break open, leaving small painful ulcers (sores) in the genital area. Eventually, scabs form and the ulcers heal. In women, these are most often on the skin just outside the vaginal opening. They can occur on the buttocks, anus or cervix. In men, the sores are usually on the tip, sidesor base of the penis. They also occur on the scrotum, buttocks or thighs. The first episode begins within 2-3 weeks after exposure to an infected sexual partner. It may last 1-3 weeks and cause headache, muscle ache and fevers. The first outbreak is usually the worst. Because the virus remains in the body even after the sores heal, most persons will have recurrences. The frequency of recurrent outbreaks varies with each person. Some people will never have another outbreak.Others will have several episodes a year. Later outbreaks are usually shorter, milder and less painful. For many, the number of outbreaks tends to decrease over time. Various factors may trigger a recurrence. These include: ?? Emotional stress ?? Menstruation ?? Presence of another illness (cold, flu, or fever from any cause) ?? Overexertion and fatigue ?? Weakened immune system Home Care: 1. It is very important that you do not have sexual relations until ALL the herpes sores have healedcompletely. 2. Wash the affected area gently with mild soap and water. Wash your hands after touching the affected area. 3. You may use acetaminophen (Tylenol) or ibuprofen (Motrin, Advil) to control pain, unless another pain medicine was prescribed. [NOTE: If you have chronic liver or kidney disease or ever had a stomach ulcer or GI bleeding, talk with your doctor before using these medicines.] 4. Your doctor may prescribe anti-viral medicine during the first outbreak. This will help the soresheal faster. Antiviral medicine may also be prescribed to have at home to take at the first sign of a recurrence. This will shorten the symptoms of a recurrence. For persons with frequent outbreaks, daily therapy may be prescribed. This will reduce the frequency of attacks. Daily therapy may also reduce risk of spread of herpes to your sexual partner. Discuss the risks and benefits of daily therapy with your doctor. 5. If you are a woman who is now or become in the future, let your doctor know that you have had herpes since this may affect the method of delivery. Preventing Spread To Others: The virus is spread by sexual contact with someone who has the herpes virus. The risk of spread is highest when the sores are present. However, there is a chance of spreading the virus even when sores are not visible . Inform future sexual partners that you have herpes and that he/she may become infected. To reduce the risk of passing the virus to a partner who has never had herpes, avoid sexual relations at the first sign of an outbreak and until the ulcers are fully healed. Latex condoms reduce the risk of spread between outbreaks if the infected site is covered, but they do not guarantee protection. Follow-Up: Persons who have just learned that they have herpes may feel guilt, anger, and be emotionally upset.Getting the facts helps put you back in control. Follow up with your doctor or the Public Health Dept for complete STD screening, including HIV testing. For more information about Herpes, see the National Herpes Resource Center http://www.ashastd.org/herpes/herpes_overview.cfm ; or call the [employer] Hotline: 638.486.6233. Get Prompt Medical Attention if any of the following occur: ?? Inability to urinate due to pain ?? Swelling or increasing redness in the genital area ?? Unusual drowsiness, weakness or confusion ?? Headache, stiff neck ?? Discharge from the vagina or penis ?? Increasing back or abdominal pain ?? Rash or joint pain ?? [id number] [place] [address]. All rights reserved. This information is not intended as a substitute for professional medical care. Always follow your healthcare professional's instructions. AUDITOR documented in this encounter Medications at Time of Discharge Medication Sig Dispensed Refills Start Date End Date cephALEXin (KEFLEX) 500 Take 1 capsule (500 40 capsule 0 01/26/2013 MG capsule mg) by mouth 4 times daily for 10 days valACYclovir (VALTREX) Take 1 tablet 20 tablet 0 01/16/2013 10/02/2021 1000 mg tablet (1,000 mg) by mouth 2 times daily documented as of this encounter ED Notes Perico Phan MD - 01/16/2013 8:17 PM CST History Chief Complaint: Penile Lesion HPI Augustus Ramirez is a 32 year old male who presents with penile lesion. The patient recently finisheda course of Amoxicillin for a sinus infection 3 days ago. He noticed a bruising on the glans of the penis yesterday morning that was not painful. This afternoon he found that the area has turned white and crusty. This prompted the patient to report to the emergency department today for evaluation. Here he relates that the area is still non-tender. He has been to his for 2.5 years and is in a monogamous relationship with her. He last had intercourse 4-5 days ago with his . He denies a history of STI for both he and his . Of note: The patient does have a history of cold sores andrecently developed one during his sinus infection that resolved with OTC medication. 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 He denies any fevers, chills, nausea, vomiting, dysuria, hematuria, purulent penile discharge, testicular swelling or pain, or any other concerns. Allergies: No known allergies Medications: Valtrex Ceftin Past Medical History: ADHD Depression Past Surgical History: Back Surgery Social History: Marital Status: Smoking status: Current Everyday Smoker Alcohol use: Yes Review of Systems Constitutional: Negative for fever and chills. Genitourinary: Positive for penile swelling. Negative for dysuria, hematuria, discharge, scrotal swelling and testicular pain. Skin: Positive for color change and rash. All other systems reviewed and are negative. Physical Exam First Vitals: BP: 129/90 mmHg Heart Rate: 82 Temp: 98.5 ??F (36.9 ??C) Resp: 18 Weight: 81.647 kg (180 lb) SpO2: 99 % Physical Exam General: Resting on the [facility] HEENT: The scalp and head appear normal The pupils are equal, round, and reactive to light No nystagmus Extraocular muscles are intact. The nose is normal. The oropharynx is normal. Uvula is in the midline. Neck: Normal range of motion. There is no rigidity. Lungs: Clear. No rales, no wheezing. There is no tachypnea. Non-labored. Cardiac: Regular rate. Normal S1 and S2. No S3 or S4. No pathological murmur. No pericardial rub. Pulses symmetrical bilaterally in extremities upper and lower Abdomen: Soft. No distension. No tympani. No rebound. Non-tender. : Dorsum of Glans completely erythematous with overlying vesicular lesions. Meatus, Foreskin and Shaft are normal. No urethral discharge. Circumcised. Testicles normal and non-tender, no mass. Epididymis normal. No inguinal hernia. Lymph: MS: Normal tone. No joint effusions. No leg swelling. No calf tenderness. Normal movement of all extremities. Neuro: Normal mentation. Normal strength and sensation. Normal motor and sensory exam. Cranial nerves symmetric Psych: Awake. Alert. Normal affect. Appropriate interactions. Skin: No rash. No lesions. Emergency Department Course Emergency Department Course: 20:14-I reviewed the patient's old medical records and performed a thorough exam of the patient. 20:28-I asked Dr. Cordero to examine the patient and consult on his case. 20:42-Dr. Cordero visited the patient and discussed his findings with me. Findings and plan explained to the Patient. Patient discharged home, status improved, with instructions regarding supportive care, medications, and reasons to return as well as the importance of close follow-up was reviewed. Impression & Plan Medical Decision Making: This patient has lesions on the dorsum of his glans as described. There is an erythematous base withgray or whitish roof lesions that look like they are becoming vesiculous but are not yet. My thoughtis that he is developing vesicular-type lesions, which possibly may have evolved from a herpetic infe ction such as HSV. He may have self-inoculated due to a recent cold sore which he said resolved finally 5 days ago. 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 He said that he may have touched the area. Also included are more obscure type diagnoses such as plasma cell balanitis. Also in the consideration would be malignancy. I am going to recommend that the patient follow up with his PMD this week. I am going to cover him empirically with Valacyclovir for the week for HSV infection, and cover him for cellulitis with Namhtn554 mg PO QID10 days. He is not really having much in the way of pain, but regardless, he needs to show signs of improvement and resolution over the next 7-10 days. I recommend, however, that he followup sooner with his PMD and may need urgent derm referral if it is not improving or is worsening in the interim. Diagnosis: 1. Genital Lesion of unclear etiology Plan: As outlined above. Omar Conklin 01/16/2013 [facility] EM[facility] I, Omar Conklin, am serving as a scribe at 8:14 PM on 01/16/2013 to document services personally performed by Dr. Phan, based on my observations and the provider's statements to me. Perico Phan MD 01/16/132148 Perico Phan MD 01/16/132149 AUDITOR Augustus Mi, RN - 01/16/2013 8:03 PM CST Patient alert and oriented x 4. ABC's intact. States he has a dark spot that is becoming white on his glands penis. Onset yesterday and has changed since then. AUDITOR documented in this encounter Plan of Treatment Upcoming Encounters Date Type Specialty Care Team Description 12/10/2021 Appointment Sarai Galindo MD [address] [place] [phone] (James wan) 12/11/2021 [place] [address] [place] [phone] (James rk) 12/11/2021 [place] [address] [place] [address] [phone] (James rk) 12/13/2021 [place] [address] [place] [address] [phone] (James rk) 12/17/2021 [place] [address] [place] [address] [phone] (James rk) 12/18/2021 Appointment Behavioral [facility] Sarai Weaver MD [address] [place], [place] [phone] (Wo rk) documented as of this encounter Visit Diagnoses Diagnosis Penile lesion - Primary Other specified disorder of penis documented in this encounter Care Teams Quality Intern Relationship Specialty Start Date End Date Sada Cagle PCP - General Family Practice 01/16/13 09/20/21 [id number] [address] [place] [id number] documented as of this encounter
--- OUTSIDE RECORDS SUMMARY | 2021-12-07 20:40 | XMS_ITS | Encounter Summary ---
:1980 Author Organization [place] Address [address] [place] [address] Care Team Providers Name Role Phone [facility] Primary Care Provider Sada Cagle Unavailable [phone] Reason for Visit Auth/Cert Specialty Diagnoses / Procedures Referred By Contact Refer red To Contact Behavioral Health Ur Adult Mh Pa rtial [facility] orth Blding [address], [address] [place] [address] Phone: Fax: Referral ID Status Reason Start Date Expiration Date Visits Requ ested Visits Authorized [id number] 1 1 Encounter Details Date Type Department Care Team Description 10/03/2021 Hospital Encounter [facility] Demarco Weaver [facility] Mental Health & MD Omar episode of major Addiction Services [address] depressive disorder [facility] without prior episode Blding NOVI, (H) (Primary Dx) [address] [place] [address] [address] [place] ([place]) [phone] Social History Tobacco Use [...] Group Note - Roby Tejada LMFT - 10/03/2021 4:17 PM CDT Process Group Note PATIENT'S NAME: Augustus Ramirez Jr. : 1980 AC[employer]. NUMBER: [id number] DATE OF SERVICE: 10/03/21 START TIME: 9:00 AM END TIME: 9:50 AM HELP DESK MANAGER: Roby Tejada LMFT TOPIC: Process Group Diagnoses: 296.32 (F33.1) Major Depressive Disorder, Recurrent Episode, Moderate, With anxious distress Attention-Deficit/Hyperactivity Disorder 314.01 (F90.2) Combined presentation Provisional Diagnoses: 1. Alcohol Use Disorder 303.90 (F10.20) Moderate 2. 305.20 (F12.10) Cannabis Use Disorder Mild [facility] Adult Partial Hospitalization Program TRACK: [facility] NUMBER OF PARTICIPANTS: 6 Service [...] and Community Resources/Discharge Planning. Patient reported feeling good today, a little anxious. Patient discussed working toward ???return to a normal life?? and ???to leave the house without having anxiety.?? For skills they will use to address their goal(s), patient identified working to learn skills. A barrier to working toward their goal(s) and/or addressing mental health symptoms the patient identified was he is his own biggest barrier. Patient reported no safety concerns and/or self-injurious behaviors. Patient reported having a cocktail after dinner. Therapist gave the reminder alcohol is a depressant and Francisco said it was a ???nightcap.?? Patient reported they are taking their medications as prescribed. Patient reported feeling proud/grateful for being back on some kind of routine. Patient discussed with the treatment group that he is feeling good today, a little anxious, and he is working toward ???return to a normal life?? and ???to leave the house without having anxiety.?? Therapeutic Interventions/Treatment Strategies: Psychotherapist offered support, feedback [...] Review: Substance Use: Patient reported having a cocktail after dinner. Therapist gave the reminder alcoholis a depressant and Francisco said it was a ???night cap.?? Mental Status/Behavioral Observations Appearance: Appropriate Eye Contact: [...] in their treatment plan. DENNIS Peterson October 03, 2021 Group Note - Estefania Ellis OTR/L - 10/03/2021 3:19 PM CDT Psychoeducation Group Note PATIENT'S NAME: Augustus Ramirez Jr. : 1980 ACCT. NUMBER: [id number] DATE OF SERVICE: 10/03/21 START TIME: 2:00 PM END TIME: 2:50 PM HELP DESK MANAGER: Estefania Ellis OTR/L TOPIC: [facility] OT Group: Partial Hospitalization Program- Occupational Therapy [facility] Adult Partial Hospitalization Program TRACK: 1 NUMBER OF PARTICIPANTS: 5 Service Modality: Video Visit Telemedicine Visit: The patient's condition can be safely assessed and treated via synchronous audioand visual telemedicine encounter. Reason for Telemedicine Visit: Services only offered telehealth Originating Site (Patient Location): Patient's home Distant Site (Provider Location): [facility] Consent: The patient/guardian has verbally consented [...] telemedicine. Summary of Group / Topics Discussed: Coping skills: Opposite to Emotion and Building Interoceptive Awareness: Patients discussed past andpresent struggles with knowing how to make changes in their lives due to difficult emotional experiences and high level of mental health symptoms. Reviewed the therapeutic skill of opposite action and patients explored opportunities to use their behaviors as a tool to reduce an emotion and help engagein tasks/behaviors that they want to change. Also provided education on interoception and skills to build interoceptive awareness as a coping skill to better notice the way their body feels and how it is connected to emotions. Patient Session Goals / Objectives: ?? Review DBT concepts and focus on patient's experiences of distress and difficult emotional experiences. ?? Learn how to do the opposite of what an emotion makes us want to do in an effort to decrease an unwanted emotional experience. ?? Demonstrate understanding of the skill of opposite action by sharing experiences where the technique could be useful in past / present situations. ?? Applied concept to everyday life and occupations, planning and problem solving as needed ?? Learn about interoception and ways to build interoceptive awareness Patient Participation / Response: Fully participated with the group by sharing personal reflections / insights and openly received / provided feedback with other participants. Patient presentation: constricted affect observed; active in group discussion offering some examples; reports knowing what he is feeling is difficult, Verbalized understanding of content and Patient would benefit from additional opportunities to practice the content to be able to generalize it to their everyday life with increased intentionality, consistency, and efficacy in support of their psychiatric recovery Treatment Plan: Patient has an initial individualized treatment plan that was created as part of their diagnostic assessment / admission process. A master individualized treatment plan is in the process of being developed with the patient and multi- disciplinary care team. Continue to assess. Will complete OT assessment with Francisco in the next couple of treatment days. OLY Melgar/Yanna Group Note - Gaby Eden LICSW - 10/03/2021 3:08 PM CDT Psychotherapy Group Note PATIENT'S NAME: Augustus Ramirez Jr. : 1980 ACCT. NUMBER: [id number] DATE OF SERVICE: 10/03/21 START TIME: 1:00 PM END TIME: 1:50 PM HELP DESK MANAGER: Gaby Eden LICSW TOPIC: EBP Group: Enhanced Mindfulness [facility] Adult Partial Hospitalization Program TRACK: 1 [...] to act on skill suggestions discussed in topic and Practiced skills in session Treatment Plan: Patient has an initial individualized treatment plan that was created as part of their diagnostic assessment / admission process. A master individualized treatment plan is in the process of being developed with the patient and multi- disciplinary care team. ADWOA Fry Group Note - Belkis Leonard RN - 10/03/2021 12:57 PM CDT Psychoeducation Group Note PATIENT'S NAME: [facility] Jr. : 1980 [facility]: [id number] DATE OF SERVICE: 10/03/21 START TIME: 10:00 AM END TIME: 10:50 AM HELP DESK MANAGER: Belkis Leonard RN TOPIC: Wellness Group: Brain Health [facility] Adult Partial Hospitalization Program TRACK: PHP 1 NUMBER OF PARTICIPANTS: 6 Summary of Group / Topics Discussed: Brain Health: Pathophysiology of stress and anxiety: Patients were educated on the difference between stress, chronic stress, and anxiety. The anatomy and pathophysiology of the body/brain were reviewed to illustrate the immediate effects of stress/anxiety in the body and the longterm effects and increased risks for chronic disease that come from unmanaged stress/anxiety. Self-coping strategies to manage symptoms of stress were reviewed and pharmacologic, psychotherapeutic, and complementary treatment options were discussed. Patient Session Goals / Objectives: ? Described the differences between stress and anxiety and how the body responds to it ? Listed the termite technician effects and increased risks for chronic disease [...] master individualized treatment plan. See [facility] treatment plan for more information. Belkis Leonard RN Group Note - Kathleen Grajeda LMFT - 10/03/2021 11:11 AM CDT Psychoeducation Group Note PATIENT'S NAME: Augustus Ramirez Jr. : 1980 ACCT. NUMBER: [id number] DATE OF SERVICE: 10/03/21 START TIME: 11:00 AM END TIME: 11:50 AM HELP DESK MANAGER: Kathleen Grajeda LMFT TOPIC: MH Wellness Group: Mental Health Maintenance [facility] Adult Partial Hospitalization Program TRACK: 1 NUMBER OF PARTICIPANTS: 6 Summary of Group / Topics Discussed: Mental Health Maintenance: Vulnerability: In this group, the concept of vulnerability was explored through the viewing, discussion, and self-reflection of the Maximilian Marie Talk Titled, ???The Power of Vulnerability.?? Patient Session Goals / Objectives: ? Defined and described definition of vulnerability ? Identified 2 or more ways of practicing authenticity Service Modality: Video Visit Telemedicine Visit: The [...] Team Description 12/10/2021 Appointment Sarai Galindo MD [address] [place] [address] [phone] (Wo rk) 12/11/2021 Appointment Sarai Galindo MD [address] [place] [address] [phone] (Wo rk) 12/11/2021 [place] [address] [place], [place] [address] [place], [place] [phone] (Wo rk) 12/13/2021 [place] [address] [place] [address] [phone] (Wo rk) 12/17/2021 [place] [address] [place] [address] [phone] (Wo rk) 12/18/2021 Appointment Sarai Galindo MD [address] [place] [address] [phone] (Wo rk) documented as of this encounter Visit Diagnoses Diagnosis Current moderate episode of major depres sive disorder without prior episode (H) - Primary documented in this encounter Additional Health Concerns Assessment Noted Time PHQ-9 Depression Total Score: 14 09/30/2021 8:52 AM CD T documented as of this encounter Care Teams Senior Accounting Clerk Relationship Specialty Start Date End Date [facility] PCP - General 09/21/21 [address] [place] [address] Sada [facility] 09/21/21 [address] [place] [id number] documented as of this encounter
--- OUTSIDE RECORDS SUMMARY | 2021-12-07 20:40 | XMS_ITS | Encounter Summary ---
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 He smashed his right index finger on 09/27/98 in a metal press at his place of work. He was seen in the emergency room where it was repaired. He was told to return to the emergency room on 09/29/98 for a wound check and dressingchange. The patient failed to do this at that time and is here for a wound check today. CURRENT MEDICATIONS: Keflex 500 mg 1 t.i.d., Tylenol with Codeine 1 q. 4 hours PRN. ALLERGIES: He has no known drug allergies. OBJECTIVE: He is 6 feet tall and weighs 155 pounds. In general, he is healthy appearing and in no acute distress. The right index finger dressing is removed after initial soaking. The wound is cleansed with sterile water. The wound is intact. Where sutures are placed there is no redness or discharge or signs of infection. The tip of the finger has an abrasion which appears to be healing without problem. The nail is almost completely missing. ASSESSMENT: Status post right index finger trauma, laceration repaired. PLAN: The wound is cleaned and redressed today. The patient is instructed on appropriate wound careat home. He is to return to the clinic early next week for suture removal. Sooner if signs of infection appear. Lucy Ying MD/renetta documented in this encounter Plan of Treatment Upcoming Encounters Date Type Specialty Care Team Description 12/10/2021 [place] [address] [place] [phone] (Wo rk) 12/11/2021 [place] [address] [place] [phone] (Wo rk) 12/11/2021 [place] [address] [place] [phone] (Wo rk) 12/13/2021 Appointment Sarai Galindo MD [address] [address] (Wo rk) 12/17/2021 [place] [address] [place] [phone] (Wo rk) 12/18/2021 [place] [address] [place] [phone] (Wo rk) documented as of this encounter Visit Diagnoses Not on filedocumented in this encounter Care Teams Gem Carver Relationship Specialty Start Date End Date None PCP - General 12/28/99 01/15/13 documented as of this encounter
--- OUTSIDE RECORDS SUMMARY | 2021-12-07 20:40 | XMS_ITS | Encounter Summary ---
:1980 Author Organization [place] Address [address] [place] [place] [address] Care Team Providers Name Role Phone [facility] Primary Care Provider [phone] Sada Cagle Unavailable [phone] Encounter Details Date Type Department Care Team Description 10/02/2021 Telephone [facility] Doc Leonard RN & Addiction Services [place] [address] [place], [place] [phone] Social History Tobacco Use [...] Team Description 12/10/2021 Appointment Sarai Galindo MD [address] [place] [address] (Wo rk) 12/11/2021 Appointment Sarai Galindo MD [address] [place] [address] (Wo rk) 12/11/2021 Appointment Sarai Galindo MD [address] [place] [address] (Wo rk) 12/13/2021 Appointment Sarai Galindo MD [address] [place] [address] (Wo rk) 12/17/2021 Appointment Sarai Galindo MD [address] [place], [place] [address] (Wo rk) 12/18/2021 Appointment Sarai Galindo MD [address] [place], [place] [address] (Wo rk) documented as of this encounter Visit Diagnoses Not on filedocumented in this encounter Additional Health Concerns Assessment Noted Time PHQ-9 Depression Total Score: 14 09/30/2021 8:52 AM CD T documented as of this encounter Care Teams Screen Printing Supervisor Relationship Specialty Start Date End Date [facility] Medical PCP - General 09/21/21 [address] [place], [place] [phone] [facility] 09/21/21 [address] [place] [address] documented as of this encounter
--- OUTSIDE RECORDS SUMMARY | 2021-12-07 20:40 | XMS_ITS | Encounter Summary ---
:1980 Author Organization [place] Address [address] [place] [address] Care Team Providers Name Role Phone [facility] Primary Care Provider [phone] Sada Cagle Unavailable Reason for Visit Reason Onset Date Comments MH/CD Inpatient 09/23/2021 Encounter Details Date Type Department Care Team Description 09/23/2021 Telephone [facility] Generic, Behavioral MH/ CD Inpatient Behavioral Health In alex Worthington MD [address] [place] [phone] Social History Tobacco Use Types Packs/Day Years Used Date Never Assessed Sex Assigned at Date Recorded Not on file COVID-19 Exposure Response Date Recorded In the last 10 days, have you been in contact with No / Unsu re 09/21/2021 12:19 PM CDT someone who was confirmed or suspected to have Coronavirus/COVID-19? documented as of this encounter Miscellaneous Notes Telephone Encounter - Evonne Hudson - 09/23/2021 8:25 AM CDT R: [facility] Access Inpatient Bed Call Log 09/23/2021 done at 7:40am Adults: ?? [facility] is posting 0 beds. ?? [facility] is posting 0 beds. ?? [facility] is posting 0 beds. ?? [facility] is posting 0 beds. ?? [facility] is posting 0 beds. ?? [facility] is posting 0 beds. ?? [facility] is posting 0 beds. ?? [facility] is posting 0 beds. ?? [facility] is posting 0 beds. Mixed unit 12+. Low acuity only. ?? [facility] is positing 0 beds. No aggression. ?? [facility] is posting 0 beds. ?? [facility] is posting 0 beds. Low acuity only. ?? [facility] is posting 0 beds. ?? [facility] is posting 0 beds. Low acuity. ?? [facility] is posting 0 beds. 72 hr hold required. ?? [facility] is posting 0 beds. ?? [facility] is posting 0 beds. Vol only, No Hx of aggression, violence or assault. No sexual offenders. No 72 hr holds. ?? [facility] is posting 3 beds. (Must have the cognitive ability to do programming. No aggressive or violent behavior or recent HX in the last 2 yrs. MH must be primary.) ?? [facility] is posting 0 beds. Low acuity only. Violence and aggression capped. ?? [facility]. Low acuity, Neg Covid. ?? [facility] is posting 0 beds. Covid neg. Vol only. Combined adolescent and adult unit. No aggressive or violent behavior. No registered sex offenders. ?? [facility] is posting 4 beds. Call for details.- Low Acuity ?? [facility] is posting 2 beds. -Low Acuity 8:44a Intake called Roes Paul) to inquire about beds available. Rose states willing to review, but needed labs are CMP, CBC, and Blood Alcohol. 8:48a Intake called MD Valle[place]) to inform that CMP, CBC, and Blood Alcohol labs are needed for review of pt. 11:01a Intake faxed clinical to [facility]. Intake awaiting for review. 11:03a Intake received notification from [facility] ([place]) that pt will discharge home today. 11:05a Intake called Rose Spencer) to inform pt no longer needs review. 11:07a Intake no longer needing to search for IP MH bed placement. Telephone Encounter - Jaimee Oakley - 09/23/2021 1:54 AM CDT 0154 Bed Search Update: [facility] beds available [facility]-No beds available [facility]-No beds available [facility] beds available [facility]-No beds available [facility]-No beds available [facility] [place]-No beds available [facility]-No beds available [facility] [place]-No beds available [facility]-No beds available. Low acuity only. Mixed unit adol/adult/helena [facility]-No beds available [facility]-No beds available [facility]-No beds available [place]-No beds available [facility]-No beds available [facility]-No beds available [facility]-No beds available. Must be on a 72 HH. No intake after 10 PM. [facility] [place]-No beds available [facility] [place] [place]-Voluntary/[place] only. No hx violence or sexual assault. [facility] [place]-No beds available [facility] [place]-No beds available [facility]-No recent hx violence/aggression. Must be able to program in groups. [facility]-Low acuity only. [facility]-No beds available. No recent violence or aggression. [facility] [place]-No beds available [facility] [place]-No beds available [facility]???[phone]-[phone] No answer [facility]-No beds available documented in this encounter Plan of Treatment Upcoming Encounters Date Type Specialty Care Team Description 12/10/2021 Appointment [facility] Sarai Joshi MD [address] [place] [address] (James rk) 12/11/2021 Appointment Sarai Galindo MD [address] [place], [place] [phone] (Wo rk) 12/11/2021 Appointment Sarai Galindo MD [address] [place], [place] [phone] (James wan) 12/13/2021 Appointment Sarai Galindo MD [address] [place], [place] [phone] (Wo rk) 12/17/2021 Appointment Sarai Galindo MD [address] [place], [place] [address] (Wo rk) 12/18/2021 Appointment Sarai Galindo MD [address] [place], [place] [address] (Wo rk) documented as of this encounter Visit Diagnoses Not on filedocumented in this encounter Care Teams Healthcare Translator Relationship Specialty Start Date End Date [facility] PCP - General 09/21/21 [address] [place], [place] [phone] [facility] 09/21/21 [address] [address] [place] [address] documented as of this encounter
--- OUTSIDE RECORDS SUMMARY | 2021-12-07 20:40 | XMS_ITS | Encounter Summary ---
:1980 Author Organization [place] Address [address] [place] [address] Care Team Providers Name Role Phone None Primary Care Provider Unavailable Encounter Details Date Type Department Care Team Description 11/05/1995 Imported Provider [facility] Iron Mckay, [facility] [address] [place], [place] [phone] [place] [address] [place] [address] (Wo savage) Social History Tobacco Use Types Packs/Day Years Used Date Never Assessed Sex Assigned at Date Recorded Not on file documented as of this encounter Progress Notes Iron Mckay MD - 11/05/1995 12:00 AM CDT A school note to take Ritalin 15 mg at noon, plus a script for #100 and this was given to his stepmother in Lab and then we will follow up later for additional. They are hoping to get him on insurancecoverage by March. Iron Mckay M.D./dml documented in this encounter Plan of Treatment Upcoming Encounters Date Type Specialty Care Team Description 12/10/2021 Appointment [facility] Sarai Weaver MD [address] [place] [address] (Wo rk) 12/11/2021 Appointment Sarai Galindo MD [address] [place] [address] (Wo rk) 12/11/2021 Appointment Sarai Galindo MD [address] [place] [address] [phone] (Wo rk) 12/13/2021 [place] [address] [place] [address] [phone] (Wo rk) 12/17/2021 Appointment Sarai Galindo MD [address] [place] [address] [phone] (Wo rk) 12/18/2021 Appointment Sarai Galindo MD [address] [place] [address] [phone] (Wo rk) documented as of this encounter Visit Diagnoses Not on filedocumented in this encounter Care Teams Currency Examiner Relationship Specialty Start Date End Date None PCP - General 12/28/99 01/15/13 documented as of this encounter
--- OUTSIDE RECORDS SUMMARY | 2021-12-07 20:40 | XMS_ITS | Encounter Summary ---
:1980 Author Organization [place] Address [facility] [place] [address] Care Team Providers Name Role Phone None Primary Care Provider Unavailable Encounter Details Date Type Department Care Team Description 01/05/1996 Imported Refill [facility] Iron Mckay, [facility] [address] [place] [address] 1 [facility] [phone] [place], [place] [phone] (Wo rk) Social History Tobacco Use Types Packs/Day Years Used Date Never Assessed Sex Assigned at Date Recorded Not on file documented as of this encounter Progress Notes Iron Mckay MD - 01/05/1996 12:00 AM MACHINE FANCY STITCHER Ritalin #100 of the 10 mg, 15 mg b.i.d. He has run out now. They are trying to get some insurance. We do need to see him fairly soon since it has been quite awhile since he has been in and they are aware of this. He is doing well on his medication. Hopefully we can see him back before too long. Iron Mckay M.D./lrm INE FANCY STITCHER documented in this encounter Plan of Treatment Upcoming Encounters Date Type Specialty Care Team Description 12/10/2021 Appointment Sarai Galindo MD [address] [place], [place] [phone] (Wo rk) 12/11/2021 Appointment Sarai Galindo MD [address] [place] [address] [phone] (Wo rk) 12/11/2021 [place] [address] [place] [address] [phone] (Wo rk) 12/13/2021 [place] [address] [place] [address] [phone] (Wo rk) 12/17/2021 [place] [address] [place] [address] [phone] (Wo rk) 12/18/2021 Appointment Sarai Galindo MD [address] [place] [address] [phone] (Wo rk) documented as of this encounter Visit Diagnoses Not on filedocumented in this encounter Care Teams Tin Tie Machine Operator Automatic Relationship Specialty Start Date End Date None PCP - General 12/28/99 01/15/13 documented as of this encounter
--- OUTSIDE RECORDS SUMMARY | 2021-12-07 20:41 | XMS_ITS | Encounter Summary ---
:1980 Author Organization [place] Address [address] [place] [address] Care Team Providers Name Role Phone None Primary Care Provider Unavailable Encounter Details Date Type Department Care Team Description 02/17/1995 X-Ray Tracking [place] Omar Rudolph MD [address] [address] Social History Tobacco Use Types Packs/Day Years Used Date Never Assessed Sex Assigned at Date Recorded Not on file documented as of this encounter Progress Notes Omar Talamantes MD - 02/17/1995 12:00 AM MILK DELIVERER ENTERED BY: JOSÉ LUIS X-RAY NUMBER: [id number] CLINIC LOCATION: [facility] ORDERING PHYSICIAN: Omar Talamantes M.D. X-RAY PROCEDURE: Rt. wrist DELIVERER documented in this encounter Plan of Treatment Upcoming Encounters Date Type Specialty Care Team Description 12/10/2021 Appointment Sarai Galindo MD [address] [place], [place] [phone] (James wan) 12/11/2021 Appointment Sarai Galindo MD [address] [place], [place] [phone] (James wan) 12/11/2021 Appointment Sarai Galindo MD [address] [place], [place] [phone] (James wan) 12/13/2021 Appointment Sarai Galindo MD [address] [place], [place] [phone] (Wo rk) 12/17/2021 Appointment Sarai Galindo MD [address], [place] [phone] (Wo rk) 12/18/2021 Appointment Sarai Galindo MD [address] [place], [place] [phone] (Wo rk) documented as of this encounter Visit Diagnoses Not on filedocumented in this encounter Care Teams Spring Coverer Relationship Specialty Start Date End Date None PCP - General 12/28/99 01/15/13 documented as of this encounter
--- OUTSIDE RECORDS SUMMARY | 2021-12-07 20:41 | XMS_ITS | Encounter Summary ---
:1980 Author Organization [place] Address [address] [place] [address] Care Team Providers Name Role Phone None Primary Care Provider Unavailable Encounter Details Date Type Department Care Team Description 03/12/1995 Imported Provider [facility] Iron Mckay, Note [facility] [address] [place] [address] [place] [phone] [place] [phone] (Wo rk) Social History Tobacco Use Types Packs/Day Years Used Date Never Assessed Sex Assigned at Date Recorded Not on file documented as of this encounter Progress Notes Iron Mckay MD - 03/12/1995 12:00 AM CARRIER BLOWER Comes in primarily for cast check on fractured distal radius sustained 02/16 while wrestling. He has been in fiberglass cast and it is getting loose and sloppy now. He is also getting a sore at the base of his thumb where it has been rubbing despite being trimmed. EXAM: The cast is removed. X-ray shows he has some good callus formation medially but laterally I think it is still lacking. PLAN: Since he has AD/HD and his dad says he has been out playing hockey with his cast on, I think we really need to put him back in a cast for another couple of weeks. I fitted him with a 3 fiberglass short arm cast, fairly lightweight, as I did not use the whole roll. If he has any problems with this, to follow up. It was well padded around the thumb but the rest is fairly tight-fitting. Cast offin 2 weeks, then plan splint. Regarding his AD/HD, apparently things are not really going so well in school. He has been taking Ritalin 15 mg b.i.d. and his dad says he is running out by noon, also his appetite is suppressed at noon. Dad would like to start it after study brnad, 15 mg, then get him later, at lunch hour, and see ifhe lasts longer through the afternoon. I think this is fine. Dad does not want to increase his dose at this time. I wrote for another 2 months, for 03/12 and 04/12, #100, of the 10 mg. He takes 1-2 b.i.d. Then we will follow up subsequently or if there are problems. Iron Mckay M.D./lrm IER BLOWER documented in this encounter Plan of Treatment Upcoming Encounters Date Type Specialty Care Team Description 12/10/2021 Appointment Sarai Galindo MD [address] [place] [address] [phone] (Wo rk) 12/11/2021 Appointment Sarai Galindo MD [address] [place] [address] [phone] (Wo rk) 12/11/2021 Appointment Sarai Galindo MD [address] [place] [address] [phone] (Wo rk) 12/13/2021 Appointment Sarai Galindo MD [address] [place] [address] [phone] (Wo rk) 12/17/2021 Appointment Sarai Galindo MD [address] [place] [address] [phone] (Wo rk) 12/18/2021 Appointment Sarai Galindo MD [address] [place] [address] [phone] (Wo rk) documented as of this encounter Visit Diagnoses Not on filedocumented in this encounter Care Teams Caterer Helper Relationship Specialty Start Date End Date None PCP - General 12/28/99 01/15/13 documented as of this encounter
--- OUTSIDE RECORDS SUMMARY | 2021-12-07 20:41 | XMS_ITS | Encounter Summary ---
:1980 Author Organization [place] Address [address] [place] [address] Care Team Providers Name Role Phone None Primary Care Provider Unavailable Encounter Details Date Type Department Care Team Description 04/29/1993 Imported Provider [facility] Iron Mckay, Note [facility] [address] [place] [address] [place] [phone] [place] [phone] (Wo rk) Social History Tobacco Use Types Packs/Day Years Used Date Never Assessed Sex Assigned at Date Recorded Not on file documented as of this encounter Progress Notes Iron Mckay MD - 04/29/1993 12:00 AM DOUBLING MACHINE OPERATOR Augustus comes back for followup as recommended. I did review with his father that it has been some time since he was seen in clinic, 12/15/91, and that generally I like to see children who are on these medications twice a year, to see that they are tolerating the medication okay and that the school is going well. Initially Augustus states that things are going okay but then his dad asks him to be a little more specific about what is actually happening. He is now in 7th grade but dad states he is not keeping up, that he hears him saying it is hard, that it is overwhelming, and that things in general seem to be worse this year. His dad states that if he is given several assignments, it is just overwhelming for him, that he does a little better if things are broken down one at a time. Dad is frustrated that he hears from the school that he gets mcc if he forgets to bring pencil or books to class, and he does not feel the school is very understanding of the ADHD problem of forgetting and being disorganized. However, if he is failing in class, sometimes weeks will go by before dad will hear, and this has frustrated him. He has asked to have a report every Thursday and he has talked with the T/A but he does not feel things are getting done. They did meet with the school 1-1/2 weeks ago and hopefully things will be better. From a medication standpoint, apparently Augustus had had some headaches so they tried to cut his medication down. He had been on 15 twice a day but then got a little weepy so they cut it back to 10 twice a day, now they have reduced it to 5 at noon. At his weight, this is an exceedingly low dose and may not be effective. PLAN: Recommended they try going back to 10 b.i.d. but he may need to take it after meals. He gets a gap, sometimes 4-1/2, even 5 hours, between his morning and noon dose, and that may need to be looked into, to try to keep a 4 hour interval. At this point, Augustus is in the Middle School but does not have an IEP, is not seeing Dannielle Wheat, who deals with most of these special needs children, and I think dad needs to pursue those things,so we can get an IEP set for Augustus and develop a plan whereby this young man can succeed. The dad himself was on Ritalin through [employer], and really feels compelled to help his son get through school with as much success as possible. I think there is much we can offer this young man. He is very pleasant and cooperative here in the office, so will have the dad pursue this avenue. I did fillout his Ritalin for another 120, 10 mg tablets, and would like to hear back within that time as to how things are progressing at school before the whole school year slips by with a disappointing outcome. IMP: ADHD. RMB/nury LING MACHINE OPERATOR documented in this encounter Plan of Treatment Upcoming Encounters Date Type Specialty Care Team Description 12/10/2021 Appointment [facility] [place] [place] MD alexei [address], [place] [phone] (Wo rk) 12/11/2021 Appointment Sarai Galindo MD [address] [place] [address] [phone] (Wo rk) 12/11/2021 [place] [address] [place] [address] [phone] (Wo rk) 12/13/2021 [place] [address] [place] [address] [phone] (Wo rk) 12/17/2021 [place] [address] [place] [address] [phone] (Wo rk) 12/18/2021 [place] [address] [place] [address] [phone] (Wo rk) documented as of this encounter Visit Diagnoses Not on filedocumented in this encounter Care Teams Electrotyper Helper Relationship Specialty Start Date End Date None PCP - General 12/28/99 01/15/13 documented as of this encounter
--- OUTSIDE RECORDS SUMMARY | 2021-12-07 20:41 | XMS_ITS | Encounter Summary ---
:1980 Author Organization [place] Address [address] [place] [address] Care Team Providers Name Role Phone None Primary Care Provider Unavailable Encounter Details Date Type Department Care Team Description 02/18/1995 Imported Provider [facility] Kenneth Howe , Valentine [facility] [address] [place] [address] PAVAN Chapman [address] [place] [phone] (Wo rk) Social History Tobacco Use Types Packs/Day Years Used Date Never Assessed Sex Assigned at Date Recorded Not on file documented as of this encounter Progress Notes Kenneth Howe MD - 02/18/1995 12:00 AM PHOTO MASK INSPECTOR SUBJECTIVE: This 14-year-old adolescent was seen by Dr. Talamantes yesterday after he fell on his right palm of his right hand while the arm was extended during wrestling practice. X-rays were taken and itwas found that he had a fracture of the right radius about 5 cm proximal to the wrist. Dr. Talamantes at that time splinted the patient and opted to have him come back today for cast placement since he was concerned with possible swelling. A fiberglass cast was placed on his right arm to immobilize the fore arm and wrist. The cast was placed such that his hand was in a Coke can formation with ulnar deviation. PLAN: 1. It was explained to the patient that the cast this evening will become quite warm and there might be some swelling of his forearm. He was told that if he keeps his arm elevated above the heart that this would decrease any type of swelling that he may encounter. 2. If he feels that at anytimehe is having pain or that his cast is too tight, then he is to return to the clinic. Otherwise, he is to return to the clinic in one week for re-x-ray to make sure that his radius is healing properly. 3. If everything goes well, in four weeks the cast can be removed and in six weeks he can return to normal activity. Sunny Silverman,MS3/Spencer Howe M.D./cap O MASK INSPECTOR documented in this encounter Plan of Treatment Upcoming Encounters Date Type Specialty Care Team Description 12/10/2021 Appointment Sarai Galindo MD [address] [place] [address] [phone] (Wo rk) 12/11/2021 Appointment Sarai Galindo MD [address] [place] [phone] (Wo rk) 12/11/2021 [place] [address] [place] [phone] (Wo rk) 12/13/2021 [place] [address] [place] [phone] (Wo rk) 12/17/2021 [place] [address] [place] [phone] (Wo rk) 12/18/2021 [place] [address] [place] [phone] (Wo rk) documented as of this encounter Visit Diagnoses Not on filedocumented in this encounter Care Teams Supervisor Mixing Relationship Specialty Start Date End Date None PCP - General 12/28/99 01/15/13 documented as of this encounter
--- OUTSIDE RECORDS SUMMARY | 2021-12-07 20:41 | XMS_ITS | Encounter Summary ---
:1980 Author Organization [place] Address [facility] [place] [address] Care Team Providers Name Role Phone None Primary Care Provider Unavailable Encounter Details Date Type Department Care Team Description 01/22/1993 Imported Physical [facility] Colette Clarke MD [address] [place] [address] [place], [place] [id number] [phone] Social History Tobacco Use Types Packs/Day Years Used Date Never Assessed Sex Assigned at Date Recorded Not on file documented as of this encounter Progress Notes Tree Clarke MD - 01/22/1993 12:00 AM AUTOMATIC DRILL OPERATOR In for sports physical. Please see copy in the chart. RF/jam MATIC DRILL OPERATOR documented in this encounter Plan of Treatment Upcoming Encounters Date Type Specialty Care Team Description 12/10/2021 Appointment Sarai Galindo MD [address] [place], [place] [phone] (James wan) 12/11/2021 Appointment Sarai Galindo MD [address] [place], [place] [phone] (James wan) 12/11/2021 Appointment Sarai Galindo MD [address] [place], [place] [phone] (James wan) 12/13/2021 Appointment Sarai Galindo MD [address] [place], [place] [phone] (Wo rk) 12/17/2021 Appointment Sarai Galindo MD [address] [place], [place] [phone] (Wo rk) 12/18/2021 Appointment Sarai Galindo MD [address] [place], [place] [phone] (Wo rk) documented as of this encounter Visit Diagnoses Not on filedocumented in this encounter Care Teams Barrel Polisher Relationship Specialty Start Date End Date None PCP - General 12/28/99 01/15/13 documented as of this encounter
--- OUTSIDE RECORDS SUMMARY | 2021-12-07 20:41 | XMS_ITS | Encounter Summary ---
:1980 Author Organization [place] Address [facility] [place] [address] Care Team Providers Name Role Phone None Primary Care Provider Unavailable Encounter Details Date Type Department Care Team Description 06/04/1992 Imported Refill [facility] Iron Mckay, [facility] [address] [place] [address] 1 [facility] [phone] [place], [place] [phone] (Wo rk) Social History Tobacco Use Types Packs/Day Years Used Date Never Assessed Sex Assigned at Date Recorded Not on file documented as of this encounter Progress Notes Iron Mckay MD - 06/04/1992 12:00 AM CDT Augustus's mother, Nataliya, who works in the hospital lab, stopped by stating that Augustus needed a refill of his Ritalin. Apparently is doing well. Another 100 is dispensed. RMB/lm documented in this encounter Plan of Treatment Upcoming Encounters Date Type Specialty Care Team Description 12/10/2021 Appointment Sarai Galindo MD [address] [place], [place] [phone] (Wo rk) 12/11/2021 Appointment Sarai Galindo MD [address] [place], [place] [phone] (Wo rk) 12/11/2021 Appointment Sarai Galindo MD [address] [place] [address] [phone] (Wo rk) 12/13/2021 Appointment Sarai Galindo MD [address] [place] [address] [phone] (Wo rk) 12/17/2021 [place] [address] [place] [address] [phone] (Wo rk) 12/18/2021 Appointment Sarai Galindo MD [address] [place] [address] [phone] (Wo rk) documented as of this encounter Visit Diagnoses Not on filedocumented in this encounter Care Teams Zoology Technical Officer Relationship Specialty Start Date End Date None PCP - General 12/28/99 01/15/13 documented as of this encounter
--- OUTSIDE RECORDS SUMMARY | 2021-12-07 20:41 | XMS_ITS | Encounter Summary ---
:1980 Author Organization [place] Address [address] [place] [address] Care Team Providers Name Role Phone None Primary Care Provider Unavailable Encounter Details Date Type Department Care Team Description 02/24/1995 Imported Provider Omar Valle, Valentine [facility] [address] [place], [place] [phone] Social History Tobacco Use Types Packs/Day Years Used Date Never Assessed Sex Assigned at Date Recorded Not on file documented as of this encounter Progress Notes Omar Talamantes MD - 02/24/1995 12:00 AM HEAD OF DESIGN SUBJECTIVE: In for recheck on his fracture. His cast seems to be fitting well. Some slight irritation around the thumb, and we trimmed the cast slightly. He will be rechecked again in two weeks. A cast change at that time, and we may consider the possibility of doing an x-ray at that time, although one follow-up x-ray may be all that is necessary. Omar Talamantes M.D./cap OF DESIGN documented in this encounter Plan of Treatment Upcoming Encounters Date Type Specialty Care Team Description 12/10/2021 Appointment Sarai Galindo MD [address] [place] [address] (James wan) 12/11/2021 Appointment Sarai Galindo MD [address] [place], [place] [phone] (James wan) 12/11/2021 Appointment Sarai Galindo MD [address] [place] [address] [phone] (Wo rk) 12/13/2021 Appointment Sarai Galindo MD [address] [place] [address] [phone] (Wo rk) 12/17/2021 Appointment Sarai Galindo MD [address] [place] [address] [phone] (Wo rk) 12/18/2021 Appointment Sarai Galindo MD [address] [place] [address] [phone] (Wo rk) documented as of this encounter Visit Diagnoses Not on filedocumented in this encounter Care Teams Abrasive Grinder Relationship Specialty Start Date End Date None PCP - General 12/28/99 01/15/13 documented as of this encounter
--- OUTSIDE RECORDS SUMMARY | 2021-12-07 20:41 | XMS_ITS | Clinical Summary ---
:1980 Author Organization [facility] [place] [address] Care Team Providers Name Role Phone Pcp, No Primary Care Provider Unavailable Allergies Active Allergy Reactions Severity Noted Date Comments Cats (Fur, Dander, Saliva) *Unknown 07/24/2020 Medications Medication Sig Dispensed Refills Start Date End Date Status albuterol HFA (VENTOLIN Inhale 2 Puffs 1 Inhaler 0 11/27/2016 Active HFA) 90 mcg/actuation by mouth every 4 inhalerIndications: hours if needed. Cough Multivitamin Cmb Take 1 Tablet by 0 Active No.21-Iron-FA 18-400 mouth. mg-mcg tab cetirizine (ZYRTEC) 10 Take 10 mg by 0 Active mg tablet mouth once daily. ascorbic acid, vitamin Take 500 mg by 0 Active C, 500 mg cap mouth. cholecalciferol, Vitamin Take 125 mcg by 0 Active D3, 5,000 unit tab mouth. tablet dextroamphetamine-amphet Take 20 mg by 0 Active amine (ADDERALL) 20 mg mouth. tablet dextroamphetamine-amphet Take 1 Tablet 90 Tablet 0 12/04/2021 Active amine (AdderalL) 20 mg (20 mg) by mouth tabletIndications: three times Attention deficit daily. hyperactivity disorder (ADHD), predominantly inattentive type dextroamphetamine-amphet Take 1 Tablet 90 Tablet 0 01/03/2022 Active amine (AdderalL) 20 mg (20 mg) by mouth tabletIndications: three times Attention deficit daily. hyperactivity disorder (ADHD), predominantly inattentive type dextroamphetamine-amphet Take 1 Tablet 90 Tablet 0 01/31/2022 Active amine (AdderalL) 20 mg (20 mg) by mouth tabletIndications: three times Attention deficit daily. hyperactivity disorder (ADHD), predominantly inattentive type Active Problems Problem Noted Date ADD (attention deficit disorder) 05/09/2020 Overview: controlled substance agreement and uds: 08/01/2021 Degenerative disc disease, cervical 08/15/2011 Depressive disorder 02/12/2004 Overview: Depressive disorder, not elsewhere class ified ([facility]) Formatting of this note might be differe nt from the original. Depressive disorder, not elsewhere class ified ([facility]) Encounters Date Type Specialty Care Team Description 11/05/2021 Phone Office Visit Shannan Marroquin, Oneil ne Visit; Medication MD Management 11/05/2021 Travel from Last 3 Months Immunizations Name Administration Dates Next Due Influenza Virus, Unspecified 12/04/2007, 12/04/2007 MMR 07/12/1992 Td (Age >=7 Years) 04/30/2000, 01/05/1996 Tdap 07/08/2011 Family History Medical History Relation Name Comments Cancer-pancreatic Father Lung cancer Mother Schizophrenia Mother Relation Name Status Comments Father Mother Social History Tobacco Use Types Packs/Day Years Used Date Current Some Day Smoker Cigarettes 1 12 Quit : 03/11/2020 Smokeless Tobacco: Never Used Tobacco Cessation: Ready to Quit: No; Co unseling Given: Yes Comments: has quit with chantix in the p ast. Alcohol Use Standard Drinks/Week Comments Yes 0 (1 standard drink = 0.6 oz pure alcoho l) Occa Alcohol Habits Answer Date Recorded How often do you have a drink containing alcohol? Not asked How many drinks containing alcohol do you have on a typical Not asked day when you are drinking? How often do you have six or more drinks on one occasion? No t asked Comment: Occa 03/11/2021 Sex Assigned at Date Recorded Not on file Obstetrics History Last Filed Vital Signs Vital Sign Reading Time Taken Comments Blood Pressure 128/72 08/01/2021 3:47 PM CDT Pulse 68 03/11/2021 3:52 PM CERTIFIED ORTHOPTIST Temperature 36.6 ??C (97.8 ??F) 11/27/2016 4:44 PM CDT Respiratory Rate 20 11/27/2016 4:44 PM CDT Oxygen Saturation 99% 11/27/2016 4:44 PM CDT Inhaled Oxygen Concentration - - Weight 78 kg (172 lb) 08/01/2021 3:47 PM CDT Height 185 cm (6' 0.84) 08/01/2021 3:47 PM CDT Body Mass Index 22.8 08/01/2021 3:47 PM CDT Plan of Treatment Health Maintenance Due Date Last Done Comments COVID-19 vaccine series (#1) 1980 Pneumococcal series for age 19-64 1986 (1 - PCV) Hepatitis C screening for age 0103/29/1998 18-79 Tetanus booster 07/07/2021 07/08/2011, 04/30/2000, 01/05/1996 Depression screening for age 12+ 10/03/2021 10/03/2020 Influenza for age 9-49 10/31/2021 12/04/2007, 12/04/2007 BMI (ht and wt on same day) for 08/01/2022 08/01/2021, 03/02, age 18+ 10/03/2020, Additional history exists Lipids for age 35-44 03/11/2026 03/11/2021 Tdap Completed 07/08/2011 Results Not on filefrom Last 3 Months Insurance Payer Benefit Plan / Subscriber ID Effective Dates Phone Addre ss Type Group WC WORKERS COMP WC WORKERS [id number] Effective for [address] [facility] [place] [address] [facility] [id number] 2019-Present [address] [address] [place] [address] (Work) [phone] Augustus Ramirez Workers Comp Self [phone] [phone] [place], [place] (Work) [phone] [employer] Occ Employer 03/02/2000 [id number] [employer] (Home) [address] [place] [address] Liudmila LARSEN (Work) [phone] Care Teams Front End Manager Relationship Specialty Start Date End Date Pcp, No PCP - General 11/27/16 .
--- OUTSIDE RECORDS SUMMARY | 2021-12-07 20:41 | XMS_ITS | Encounter Summary ---
:1980 Author Organization [facility] Address [address] [place] [address] Care Team Providers Name Role Phone None Primary Care Provider Unavailable Encounter Details Date Type Department Care Team Description 02/17/1995 Imported Provider Omar Valle, Valentine [facility] [address] [place], [place] [id number] Social History Tobacco Use Types Packs/Day Years Used Date Never Assessed Sex Assigned at Date Recorded Not on file documented as of this encounter Progress Notes Omar Talamantes MD - 02/17/1995 12:00 AM CHEF CONCIERGE SUBJECTIVE: He fell on his outstretched wrist while in wrestling practice yesterday. He has swelling and soreness over the distal radius. OBJECTIVE: The patient has normal function and circulation of the hand. X-ray confirms a fracture of the distal radius. ASSESSMENT: Fracture. PLAN: There is moderate swelling, we put a splint on with an Alexey wrap. Recheck in a week. At that time we are going to place a short arm fiberglass cast. Omar Talamantes M.D./ruthl CONCIERGE documented in this encounter Plan of Treatment Upcoming Encounters Date Type Specialty Care Team Description 12/10/2021 Appointment Sarai Galindo MD [address] [place] [address] (James wan) 12/11/2021 Appointment Sarai Galindo MD [address] [place], [place] [phone] (Wo rk) 12/11/2021 Appointment Sarai Galindo MD [address] [place] [address] [phone] (Wo rk) 12/13/2021 [place] [address] [place] [address] [phone] (Wo rk) 12/17/2021 Appointment Sarai Galindo MD [address] [place] [address] [phone] (Wo rk) 12/18/2021 Appointment Sarai Galindo MD [address] [place] [address] [phone] (Wo rk) documented as of this encounter Visit Diagnoses Not on filedocumented in this encounter Care Teams Experimental Rocketsled Mechanic Relationship Specialty Start Date End Date None PCP - General 12/28/99 01/15/13 documented as of this encounter
--- OUTSIDE RECORDS SUMMARY | 2021-12-07 20:41 | XMS_ITS | Encounter Summary ---
:1980 Author Organization [facility] Address [address] [place] [address] Care Team Providers Name Role Phone None Primary Care Provider Unavailable Encounter Details Date Type Department Care Team Description 04/01/1995 [facility] [address] [place] [address] PAVAN Chapman [address] [place], [place] [phone] (Wo rk) Social History Tobacco Use Types Packs/Day Years Used Date Never Assessed Sex Assigned at Date Recorded Not on file documented as of this encounter Progress Notes Kenneth Howe MD - 04/01/1995 12:00 AM PARTS AND SERVICE MANAGER SUBJECTIVE: Comes in for recheck of his fracture. He is now 6 weeks post distal radius fracture. X-ray was done again today and it shows very good positioning and callus formation. OBJECTIVE: He still has a little bit of tenderness to palpation over the fracture site. He also hassome tenderness to the muscles and tendons overlying the dorsum of the wrist. Otherwise appears to be healing well with fairly good ROM without loss at the wrist. ASSESSMENT: Distal radial fracture, healing well. Still some minimal tenderness. PLAN: Will put him in a Futuro wrist splint for protection. He is to wear this at all times with any activity. He can remove it for sleep, hygiene, etc. We have asked him to refrain from any physical activity, i.e., specifically wrestling for another 2 weeks. Will reassess at that time and if he is pain-free at 8 weeks out from injury, I think we can return him to full activities. Spencer Howe M.D./lrtevin S AND SERVICE MANAGER documented in this encounter Plan of Treatment Upcoming Encounters Date Type Specialty Care Team Description 12/10/2021 Appointment Sarai Galindo MD [address] [place] [address] [phone] (Wo rk) 12/11/2021 [place] [address] [place] [address] [phone] (Wo rk) 12/11/2021 [place] [address] [place] [address] [phone] (Wo rk) 12/13/2021 [place] [address] [place] [address] [phone] (Wo rk) 12/17/2021 Appointment Sarai Galindo MD [address] [place] [address] [phone] (Wo rk) 12/18/2021 [place] [address] [place] [address] [phone] (Wo rk) documented as of this encounter Visit Diagnoses Not on filedocumented in this encounter Care Teams Studio Model Relationship Specialty Start Date End Date None PCP - General 12/28/99 01/15/13 documented as of this encounter
--- OUTSIDE RECORDS SUMMARY | 2021-12-07 20:41 | XMS_ITS | Encounter Summary ---
:1980 Author Organization [facility] Address [address] [place] [address] Care Team Providers Name Role Phone None Primary Care Provider Unavailable Encounter Details Date Type Department Care Team Description 12/23/1993 Imported Provider [facility] Iron Mckay, Note [facility] [address] [place] [address] GRAY [phone] [place] [phone] (Wo rk) Social History Tobacco Use Types Packs/Day Years Used Date Never Assessed Sex Assigned at Date Recorded Not on file documented as of this encounter Progress Notes Iron Mckay MD - 12/23/1993 12:00 AM CDT Follow-up attention deficit hyperactive disorder. Augustus is now in the eighth grade but things have not been going so well. Even by the first or second hours meds are wearing off. He is not concentrating, not remembering to bring his work home and things just are not progressing well. He certainly hasbeen growing. He has been sleeping and eating well. He apparently eats a lot. No motor tick problems. My recommendation at this point, as based on weight, he is underdosed, and we need to increase him and even a 0.3 mg/kilo gram dose would put him at about 12. We will bump him up to 15 b.i.d., and we will see how that goes for the next couple weeks and if necessary, go up to 20 b.i.d. Hopefully that will last him better through the day. He has had some times before where he went kind of flat on Ritalin, so we need to make sure we do not overshoot. We will then follow up with family. Script is written for 12/23 and 01/23 #100 each. RMB/cap documented in this encounter Plan of Treatment Upcoming Encounters Date Type Specialty Care Team Description 12/10/2021 [place] [address] [place] [address] [phone] (Wo rk) 12/11/2021 [place] [address] [place] [phone] (Wo rk) 12/11/2021 [place] [address] [place] [phone] (Wo rk) 12/13/2021 [place] [address] [place] [phone] (Wo rk) 12/17/2021 [place] [address] [place] [phone] (Wo rk) 12/18/2021 [place] [address] [place] [phone] (Wo rk) documented as of this encounter Visit Diagnoses Not on filedocumented in this encounter Care Teams Solid Waste Engineer Relationship Specialty Start Date End Date None PCP - General 12/28/99 01/15/13 documented as of this encounter
--- OUTSIDE RECORDS SUMMARY | 2021-12-07 20:41 | XMS_ITS | Encounter Summary ---
:1980 Author Organization [facility] Address [address] [place] [address] Care Team Providers Name Role Phone None Primary Care Provider Unavailable Encounter Details Date Type Department Care Team Description 11/18/1994 Imported Provider [facility] Iron Mckay, Valentine [facility] [address] [place], [place] [phone] [place] [address] [place] [address] (James wan) Social History Tobacco Use Types Packs/Day Years Used Date Never Assessed Sex Assigned at Date Recorded Not on file documented as of this encounter Progress Notes Iron Mckay MD - 11/18/1994 12:00 AM CDT Refilled his Ritalin. He takes 15 mg b.i.d., 10 mg tablets, #100, 9-18 and 10-18 given to mother, Natalie, in lab. Iron Mckay M.D./eric documented in this encounter Plan of Treatment Upcoming Encounters Date Type Specialty Care Team Description 12/10/2021 Appointment Sarai Galindo MD [address] [place] [address] (Wo rk) 12/11/2021 Appointment Sarai Galindo MD [address] [place], [place] [phone] (James wan) 12/11/2021 Appointment Sarai Galindo MD [address] [place] [address] [phone] (Wo rk) 12/13/2021 Appointment Sarai Galindo MD [address] [place] [address] [phone] (Wo rk) 12/17/2021 [place] [address] [place] [address] [phone] (Wo rk) 12/18/2021 [place] [address] [place] [address] [phone] (Wo rk) documented as of this encounter Visit Diagnoses Not on filedocumented in this encounter Care Teams Scheduling Coordinator Relationship Specialty Start Date End Date None PCP - General 12/28/99 01/15/13 documented as of this encounter
== END 2021-12-07 20:35 | disposition home or self-care (01) ==
PROVIDERS: Emergency Provider Family Medicine
DX: R07.89 Other chest pain (principal); V49.3XXA Car occupant (driver) (passenger) injured in unspecified nontraffic accident, initial encounter
CPT/HCPCS: 70450; 71250; 72125; 93005; 94761; 96374; 99285; 99291; J2270